=== PATIENT | male | born 1965 | race Caucasian/White ===

== ENCOUNTER → 2019-02-13 09:06 | Outpatient (CLI) | payer MEDICAID, SELFPAY ==
[2019-02-13 12:20] LABS: Absolute Lymphocyte Count 2.13 X10^3/uL (0.83-4.51); Absolute Neutrophil Count 4.3 X10^3/uL (2.0-7.7); Basophil# 0.03 X10^3/uL; Basophil% 0.4 % (0-1); Eosinophil# 0.24 X10^3/uL; Eosinophils% 3.4 % (0-5); Hematocrit 40.9 % (40-54); Hemoglobin 14.6 g/dL (13.0-16.5); Lymphocyte # 2.13 X10^3/ul (4.0); Lymphocyte % 30.1 % (19-41); Mean Corp Hgb Conc 35.7 g/dL (32-36); Mean Corpuscular Volume 86.8 fL (80-94); Mean Platelet Vol. 11.2 fl (6.2-12.0); Monocyte% 5.6 % (0-10); NRBC Flagged by Analyzer 0 % (0-5); Neutrophil # 4.26 X10^3/uL (2.7-7.7); Neutrophil % 60.2 % (47-70); Platelet Count 229 K/mm3 (150-450); RBC Distribution Width SD 40.3 fl (35.1-43.9); Red Blood Count 4.71 M/mm3 (4.6-6.2); White Blood Count 7.1 K/mm3 (4.4-11.0)
[2019-02-13 12:56] LABS: Phenytoin (Dilantin) Level 8.7 mL (10.0-20.0)
[2019-02-13 13:15] LABS: ALB/GLOB Ratio 0.9 RATIO (0.9-2.4); AST(SGOT) 24 U/L (15-37); Alanine Aminotransfer ALT/SGPT 37 U/L (16-61); Albumin, Serum 3.5 g/dL (3.2-5.0); Alkaline Phosphatase 107 U/L (45-117); Anion Gap 9 (5-15); BUN 10 mg/dL (7-18); Calcium,Total 8.1 mg/dL (8.5-10.1); Chloride 103 mmol/L (98-107); Cholesterol 239 mg/dL (200); Creatinine, Serum 0.91 mg/dL (0.70-1.30); EST Glomerular Filtration Rate 93 mL/min (>60); Est Glom Filt Rate - Afr Amer 113 mL/min (>60); Globulin 3.8 g/dL (2.2-4.2); Glucose 201 mg/dL (74-106); High Density Lipoprotein 27 mg/dL; Potassium 4.3 mmol/L (3.5-5.1); Protein, Total 7.3 g/dL (6.4-8.2); Sodium Level 138 mmol/L (136-145); Thyroid Stim Hormone (TSH) 1.87 uIU/mL (0.358-3.74); Triglycerides 1365 mg/dL
== END ==
PROVIDERS: Visit Provider Internal Medicine
DX: E11.9 Type 2 diabetes mellitus without complications (principal); E78.5 Hyperlipidemia, unspecified; G40.909 Epilepsy, unspecified, not intractable, without status epilepticus
CPT/HCPCS: 36415; 80053; 80061; 80185; 84443; 85025

== ENCOUNTER → 2019-08-14 14:12 | Outpatient (CLI) | payer MEDICAID, SELFPAY ==
[2019-08-14 14:08] VITALS: BMI 49.4
[2019-08-14 16:00] LABS: Anion Gap 6 (5-15); BUN 12 mg/dL (7-18); Calcium,Total 8.8 mg/dL (8.5-10.1); Chloride 108 mmol/L (98-107); Creatinine, Serum 0.92 mg/dL (0.70-1.30); EST Glomerular Filtration Rate 91 mL/min (>60); Est Glom Filt Rate - Afr Amer 110 mL/min (>60); Glucose 110 mg/dL (74-106); Sodium Level 140 mmol/L (136-145)
[2019-08-14 22:16] LABS: Microalbumin:Creatinine Ratio 190.7 mg/g CRE (<30 mg/g CRE)
== END ==
LOC: LAB 14:14
PROVIDERS: PCP Internal Medicine; Referring Provider Internal Medicine; Visit Provider Internal Medicine
DX: E11.9 Type 2 diabetes mellitus without complications (principal); I10 Essential (primary) hypertension
CPT/HCPCS: 36415; 80048; 82043; 82570

== ENCOUNTER → 2019-10-16 14:17 | Outpatient (CLI) | payer MEDICAID, SELFPAY ==
[2019-10-16 13:57] VITALS: BMI 49.4
[2019-10-16 15:52] LABS: Hemoglobin A1c 6.2 % (4.2-6.3)
[2019-10-16 15:54] LABS: Cholesterol 221 mg/dL (200); High Density Lipoprotein 34 mg/dL; Triglycerides 586 mg/dL
== END ==
PROVIDERS: PCP Internal Medicine; Visit Provider Internal Medicine
DX: E11.9 Type 2 diabetes mellitus without complications (principal); E78.5 Hyperlipidemia, unspecified; G40.909 Epilepsy, unspecified, not intractable, without status epilepticus
CPT/HCPCS: 36415; 80061; 80185; 83036

== ENCOUNTER → 2020-01-15 14:01 | Outpatient (CLI) | payer MEDICAID, SELFPAY ==
[2020-01-15 13:33] VITALS: BMI 49.4
[2020-01-15 15:41] LABS: Absolute Lymphocyte Count 2.38 X10^3/uL (0.83-4.51); Absolute Neutrophil Count 5.1 X10^3/uL (2.0-7.7); Basophil# 0.05 X10^3/uL; Basophil% 0.6 % (0-1); Eosinophil# 0.26 X10^3/uL; Eosinophils% 3.2 % (0-5); Hematocrit 40.5 % (40-54); Hemoglobin 14.3 g/dL (13.0-16.5); Lymphocyte # 2.38 X10^3/ul (4.0); Lymphocyte % 28.8 % (19-41); Mean Corp Hgb Conc 35.3 g/dL (32-36); Mean Corpuscular Hgb 31.3 pg (27.0-32.0); Mean Corpuscular Volume 88.6 fL (80-94); Mean Platelet Vol. 9.7 fl (6.2-12.0); Monocyte# 0.41 X10^3/uL; NRBC Flagged by Analyzer 0 % (0-5); Neutrophil # 5.12 X10^3/uL (2.7-7.7); Platelet Count 267 K/mm3 (150-450); RBC Distribution Width SD 44.5 fl (35.1-43.9); Red Blood Count 4.57 M/mm3 (4.6-6.2); White Blood Count 8.3 K/mm3 (4.4-11.0)
[2020-01-15 16:28] LABS: T4 Free Direct 0.72 ng/dL (0.76-1.46); Thyroid Stim Hormone (TSH) 2.41 uIU/mL (0.358-3.74)
== END ==
PROVIDERS: PCP Internal Medicine; Referring Provider Internal Medicine; Visit Provider Internal Medicine
DX: E11.9 Type 2 diabetes mellitus without complications (principal); Z13.29 Encounter for screening for other suspected endocrine disorder
CPT/HCPCS: 36415; 84439; 84443; 85025

== ENCOUNTER 2020-02-10 13:00 | Outpatient (RCR) | payer MEDICAID, SELFPAY ==
[2020-01-15 13:33] VITALS: BMI 49.4
--- NOTE | 2020-02-04 16:29 | HP.PTEVAL ---
Patient's Visit Information EVANGELISTA BORREGO Jr. is a 54 year old M referred to Physical Therapy by Dr. Stephen Leonard MD with a diagnosis of BPPV. Date of Evaluation: 02/04/20 Physical Therapist: Trino Serrano, DPT, OCS, CSCS - Visit Plan Frequency: 1x/Week Duration: 2-4 Weeks Plan: weekly as needed for positional treatment or oculomotor if needed. - Subjective Started getting dizzy maybe after working hard in the heat. Gets dizzy getting up quick or lying down. Lasts for a number of seconds upon turning head. Feels pretty normal in between these sessions. Balance feels ok except when dizzy. On meclizine for dizzyness. It helps a little. Turning in bed causes this. Not employed. Had seizure in May and has epilepsy and does not work. Sleep is OK. Activities at home are pretty normal he just has to slow down to avoid falling down. This happens most days. - Objective Walks well with good balance. Cervical AROM WFL and without pain or problems. FW head posture. - L hallpike. + R hallpike for asymmetrical dizzyness and possibly slight up torsional nystagmus quickly. Treated with R Akanksha then - R HD. - Balance Scores Functional Gait Assessment Score: 28 % Disability: 6.6700 - Goals Goal 1:: Abolish dizzyness in bed and bending Goal Time Frame: 2-4 Weeks Goal 2:: Pt feel 100% back to normal. Goal Time Frame: 2-4 Weeks - Rehabilitation Potential Physical Therapy Diagnosis: R PC BPPV Rehabilitation Potential: Good - Anticipated Interventions Patient/Client Instruction: Educate patient on: Condition, Plan of Care For the Purpose of:: To increase tolerance to activity/condition/position Comment: positional and vestibular ex For the Purpose of:: To increase tolerance to activity/condition/position Thank you for the opportunity to evaluate your patient. For Medicare and Medicare HMO plans, please review the plan of care and approve it. It will need to be FAXED BACK to us at [phone] for Medicare purposes. For Medicare only, by signing this I certify the plan of care. Please let me know if there are questions or concerns regarding this plan of care. Physician Signature: Date:
--- NOTE | 2020-02-10 13:16 | HP.PTDCSUM ---
It has been my pleasure to treat EVANGELISTA BORREGO Jr. referred by Dr. Stephen Leonard MD, with the diagnosis of BPPV for a total of 2 visit(s). Discharge Date: 02/10/20 Please see the following information for a summary of their discharge status. Subjective: 80% improved, no dizzy spells. Fell two times while mowing stepping in holes. Roling in bed without dizzyness adn sleeping OK. Will see doc in a week or two. No dizzy with bending. Objective/Function: - B halpike franci adn - roll test. Walkign well adn transitioning with ease. No dizzyness with bending. Goal 1:: Abolish dizzyness in bed and bending Goal Progress: Goal Met Goal 2:: Pt feel 100% back to normal. Goal Progress: Progressing Plan: d/c If there are questions or concerns regarding this patient's physical therapy, please feel free to call me at [phone]. Thank you for the referral of this patient. Sincerely, Trino Serrano, DPT, OCS, CSCS
== END 2020-02-10 19:00 | disposition home or self-care (01) ==
LOC: PT 13:00
PROVIDERS: PCP Internal Medicine; Referring Provider Internal Medicine; Visit Provider Internal Medicine
DX: R42 Dizziness and giddiness (principal)
CPT/HCPCS: 97161; 97164

== ENCOUNTER → 2020-04-06 | Outpatient (CLI) | payer MEDICAID, SELFPAY ==
[2020-04-02 11:05] VITALS: BMI 49.4
== END | disposition home or self-care (01) ==
LOC: LABSPEC 17:49
PROVIDERS: PCP Internal Medicine; Referring Provider Internal Medicine; Visit Provider Internal Medicine
DX: Z20.828 Contact with and (suspected) exposure to other viral communicable diseases (principal); R05 Cough
CPT/HCPCS: 87635; C9803; U0003

== ENCOUNTER → 2020-07-13 10:14 | Outpatient (CLI) | payer MEDICAID, SELFPAY ==
[2020-04-15 16:08] VITALS: BMI 49.4
[2020-07-13 12:32] LABS: Basophil# 0.04 X10^3/uL; Basophil% 0.7 % (0-1); Eosinophil# 0.17 X10^3/uL; Eosinophils% 2.8 % (0-5); Hematocrit 41.5 % (40-54); Hemoglobin 14.1 g/dL (13.0-16.5); Lymphocyte % 42.4 % (19-41); Mean Corpuscular Hgb 30.1 pg (27.0-32.0); Mean Corpuscular Volume 88.7 fL (80-94); Mean Platelet Vol. 10.2 fl (6.2-12.0); Monocyte# 0.36 X10^3/uL; Monocyte% 5.9 % (0-10); NRBC Flagged by Analyzer 0 % (0-5); Neutrophil # 2.95 X10^3/uL (2.7-7.7); Platelet Count 256 K/mm3 (150-450); RBC Distribution Width CV 12.9 % (11.6-14.6); RBC Distribution Width SD 41.9 fl (35.1-43.9); Red Blood Count 4.68 M/mm3 (4.6-6.2); White Blood Count 6.1 K/mm3 (4.4-11.0)
[2020-07-13 12:52] LABS: AST(SGOT) 14 U/L (15-37); Alanine Aminotransfer ALT/SGPT 27 U/L (16-61); Albumin, Serum 3.7 g/dL (3.2-5.0); Alkaline Phosphatase 100 U/L (45-117); Anion Gap 6 (5-15); BUN 15 mg/dL (7-18); BUN/Creat Ratio 16.9 RATIO (10-20); Calcium,Total 8.7 mg/dL (8.5-10.1); Chloride 104 mmol/L (98-107); Creatinine, Serum 0.89 mg/dL (0.70-1.30); EST Glomerular Filtration Rate 95 mL/min (>60); Est Glom Filt Rate - Afr Amer 115 mL/min (>60); Globulin 3.8 g/dL (2.2-4.2); Glucose 157 mg/dL (74-106); Potassium 4.1 mmol/L (3.5-5.1); Protein, Total 7.5 g/dL (6.4-8.2); Sodium Level 138 mmol/L (136-145)
== END ==
PROVIDERS: PCP Internal Medicine; Visit Provider Internal Medicine
DX: E11.9 Type 2 diabetes mellitus without complications (principal); I10 Essential (primary) hypertension
CPT/HCPCS: 36415; 80053; 85025

== ENCOUNTER → 2020-10-12 09:49 | Outpatient (CLI) | payer BC, MEDICAID, SELFPAY ==
[2020-10-12 09:10] VITALS: BMI 46.0
[2020-10-12 13:37] LABS: Anion Gap 4 (5-15); BUN 16 mg/dL (7-18); BUN/Creat Ratio 16.4 RATIO (10-20); Chloride 105 mmol/L (98-107); Cholesterol 224 mg/dL (200); Creatinine, Serum 0.97 mg/dL (0.70-1.30); EST Glomerular Filtration Rate 85 mL/min (>60); Est Glom Filt Rate - Afr Amer 103 mL/min (>60); Glucose 119 mg/dL (74-106); High Density Lipoprotein 36 mg/dL; Potassium 4.3 mmol/L (3.5-5.1); Sodium Level 139 mmol/L (136-145); Triglycerides 420 mg/dL
== END ==
PROVIDERS: PCP Internal Medicine; Referring Provider Internal Medicine; Visit Provider Internal Medicine
DX: E11.9 Type 2 diabetes mellitus without complications (principal); I10 Essential (primary) hypertension
CPT/HCPCS: 36415; 80048; 80061

== ENCOUNTER → 2021-01-11 13:31 | Outpatient (CLI) | payer BC, MEDICAID, SELFPAY ==
[2021-01-11 13:10] VITALS: BMI 46.0
[2021-01-11 15:32] LABS: Microalbumin:Creatinine Ratio 38.5 mg/g CRE (<30 mg/g CRE)
== END ==
PROVIDERS: PCP Internal Medicine; Visit Provider Internal Medicine
DX: E11.9 Type 2 diabetes mellitus without complications (principal)
CPT/HCPCS: 82043; 82570

== ENCOUNTER → 2021-04-06 09:15 | Outpatient (CLI) | payer BC, MEDICAID, SELFPAY ==
[2021-04-06 12:12] LABS: Absolute Lymphocyte Count 2.44 X10^3/uL (0.83-4.51); Absolute Neutrophil Count 3.9 X10^3/uL (2.0-7.7); Basophil# 0.03 X10^3/uL; Basophil% 0.4 % (0-1); Eosinophils% 2.8 % (0-5); Hematocrit 42.9 % (40-54); Hemoglobin 14.5 g/dL (13.0-16.5); Lymphocyte # 2.44 X10^3/ul (0.83-4.51); Lymphocyte % 34.7 % (19-41); Mean Corp Hgb Conc 33.8 g/dL (32-36); Mean Corpuscular Hgb 31.3 pg (27.0-32.0); Mean Corpuscular Volume 92.5 fL (80-94); Mean Platelet Vol. 9.6 fl (6.2-12.0); Monocyte# 0.47 X10^3/uL; Monocyte% 6.7 % (0-10); NRBC Flagged by Analyzer 0 % (0-5); Neutrophil # 3.87 X10^3/uL (2.7-7.7); Platelet Count 257 K/mm3 (150-450); RBC Distribution Width CV 13.6 % (11.6-14.6); RBC Distribution Width SD 46.2 fl (35.1-43.9); Red Blood Count 4.64 M/mm3 (4.6-6.2)
[2021-04-06 12:41] LABS: ALB/GLOB Ratio 0.9 RATIO (0.9-2.4); AST(SGOT) 14 U/L (15-37); Alanine Aminotransfer ALT/SGPT 25 U/L (16-61); Albumin, Serum 3.6 g/dL (3.2-5.0); Alkaline Phosphatase 90 U/L (45-117); Anion Gap 7 (5-15); BUN 19 mg/dL (7-18); BUN/Creat Ratio 22.3 RATIO (10-20); Chloride 106 mmol/L (98-107); Cholesterol 233 mg/dL (200); Creatinine, Serum 0.85 mg/dL (0.70-1.30); EST Glomerular Filtration Rate 99 mL/min (>60); Est Glom Filt Rate - Afr Amer 120 mL/min (>60); Glucose 134 mg/dL (74-106); High Density Lipoprotein 37 mg/dL; Potassium 4.6 mmol/L (3.5-5.1); Protein, Total 7.6 g/dL (6.4-8.2); Sodium Level 139 mmol/L (136-145); Triglycerides 446 mg/dL
[2021-04-06 12:51] LABS: Microalbumin,Random Urine 98.8 mg/L (NO RANGE EST.); Microalbumin:Creatinine Ratio 82.3 mg/g CRE (<30 mg/g CRE)
== END ==
PROVIDERS: PCP Internal Medicine; Referring Provider Internal Medicine; Visit Provider Internal Medicine
DX: E11.9 Type 2 diabetes mellitus without complications (principal); I10 Essential (primary) hypertension
CPT/HCPCS: 36415; 80053; 80061; 82043; 82570; 85025

== ENCOUNTER 2021-09-09 15:17 | Outpatient (CLI) | payer MEDICAID, SELFPAY ==
--- NOTE | 2021-09-09 15:37 | RAD_ITS ---
STUDY: X-RAY - LUMBAR SPINE REASON FOR EXAM: Male, 56 years old. Numbness in Rt leg x 3 weeks. Low back pain. radiculopathy TECHNIQUE: XR Spine Lumbar 2 or 3 Views COMPARISON: None FINDINGS: Normal lumbar lordosis. There is no substantial scoliosis. There is a normal alignment of the vertebrae. Normal vertebral bodies and endplates. Normal disc space heights. There are atherosclerotic vascular calcifications. The soft tissue structures are unremarkable. RAD/Lumbar Spine 2 or 3 Views IMPRESSION: There are no acute findings. Electronically Signed: Loki Jain MD at 16:12 EST ,
--- NOTE | 2021-09-09 15:37 | RAD_ITS ---
STUDY: X-RAY - PELVIS AND RIGHT HIP REASON FOR EXAM: Male, 56 years old. Right Hip Pain TECHNIQUE: XR Hip Unilateral with Pelvis when performed; 2-3 Views COMPARISON: None. FINDINGS: There is a non-specific bowel gas pattern. Normal visualized soft tissue structures. Normal bilateral iliac wings, sacroiliac joints and visualized sacrum. Normal bilateral superior and inferior pubic rami. Normal pubic symphysis. Normal bilateral ischial tuberosities. Right and left hips: Normal visualized femoral head. There is osteoarthritic spur formation of the acetabular rim. There is mild articular joint space narrowing of the hip. RAD/HIP, UNI W/ Pelvis 2-3 Views IMPRESSION: Degenerative findings of the hips. Electronically Signed: Loki Jain MD at 16:13 EST ,
== END 2021-09-09 23:59 | disposition home or self-care (01) ==
LOC: RAD 15:20
PROVIDERS: PCP Internal Medicine; Referring Provider Internal Medicine; Visit Provider Internal Medicine
DX: M25.551 Pain in right hip (principal); M54.16 Radiculopathy, lumbar region
CPT/HCPCS: 72100; 73502

== ENCOUNTER 2021-10-11 16:57 | Outpatient (CLI) | payer BC, MEDICAID, SELFPAY ==
--- NOTE | 2021-10-11 17:10 | RAD_ITS ---
STUDY: X-RAY - CERVICAL SPINE REASON FOR EXAM: Male, 56 years old. neck pain TECHNIQUE: view(s) of the cervical spine were obtained. COMPARISON: None FINDINGS: Normal anterior atlantoaxial articulation. Normal odontoid process. Normal cervical lordosis. Normal vertebral bodies and endplates. Normal disc space heights. Normal visualized intervertebral neuroforamina. The soft tissue structures are unremarkable. RAD/Cerv Spine 4 or 5 Views IMPRESSION: Normal x-ray examination of the visualized cervical spine. Electronically Signed: Júnior Dupree MD at 6:42 EDT ,
== END 2021-10-11 23:59 | disposition home or self-care (01) ==
PROVIDERS: PCP Internal Medicine; Referring Provider Family Medicine; Visit Provider Family Medicine
DX: M54.2 Cervicalgia (principal)
CPT/HCPCS: 72050

== ENCOUNTER → 2024-10-28 | Outpatient (REF) | payer MEDICAID, SELFPAY ==
[2024-10-28 10:06] LABS: Hematocrit 39.3 % (40-54); Hemoglobin 13.8 g/dL (13.0-16.5); Mean Corp Hgb Conc 35.1 g/dL (32-36); Mean Corpuscular Hgb 30.8 pg (27.0-32.0); Mean Corpuscular Volume 87.7 fL (80-94); Mean Platelet Vol. 10.2 fl (6.2-12.0); Platelet Count 223 K/mm3 (150-450); RBC Distribution Width CV 13.6 % (11.6-14.6); RBC Distribution Width SD 43.3 fl (35.1-43.9); Red Blood Count 4.48 M/mm3 (4.6-6.2); White Blood Count 5.8 K/mm3 (4.4-11.0)
[2024-10-28 10:10] LABS: ALB/GLOB Ratio 1.3 RATIO (0.9-2.4); AST(SGOT) 25 U/L (<=37); Alanine Aminotransfer ALT/SGPT 28 U/L (<=46); Albumin, Serum 3.6 g/dL (3.5-5.0); Alkaline Phosphatase 86 U/L (40-129); Anion Gap 11 (5-15); BUN 14 mg/dL (4-19); BUN/Creat Ratio 14.6 RATIO (10-20); Calcium,Total 8.8 mg/dL (7.6-11.0); Carbon Dioxide 22.9 mmol/L (21.0-32.0); Chloride 109 mmol/L (98-108); Creatinine, Serum 0.96 mg/dL (0.70-1.20); EST Glomerular Filtration Rate 91 (>60); Globulin 2.8 g/dL (2.2-4.2); Glucose 102 mg/dL (70-99); Potassium 3.9 mmol/L (3.3-5.1); Protein, Total 6.5 g/dL (5.9-8.4); Sodium Level 142 mmol/L (133-145); Total Bilirubin 0.35 mg/dL (0.00-1.30)
== END | disposition home or self-care (01) ==
LOC: OLS.SANC 05:00
PROVIDERS: PCP Family Medicine
DX: E11.9 Type 2 diabetes mellitus without complications (principal); I10 Essential (primary) hypertension; G40.509 Epileptic seizures related to external causes, not intractable, without status epilepticus
CPT/HCPCS: 36415; 80053; 85027

== ENCOUNTER → 2025-01-31 | Outpatient (REF) | payer MEDICAID, SELFPAY ==
--- OUTSIDE RECORDS SUMMARY | 2025-01-31 04:45 | XMS RPT_ITS | CCD ---
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 unspecified] 05-08-2023 Episodic Other lower respiratory disease (1 source) Cough; Translations: [Acute cough] Episodic Other lower respiratory disease (1 source) Cough; Translations: [Acute cough] 02-14-2022 Episodic Other nervous system disorders (1 source) Carpal tunnel syndrome; Translations: [Carpal tunnel syndrome, unspecified upper limb] Chronic Other nervous system disorders (3 sources) Neuropathy; Translations: [Polyneuropathy, unspecified] 03-29-2024 Chronic Other nervous system disorders (8 sources) Aphasia; Translations: [Aphasia] Onset: 09-25-2024 09-26-2024 Chronic Other nervous system disorders (2 sources) Polyneuropathy, unspecified; Translations: [Polyneuropathy, unspecified] Onset: 03-29-2024 Chronic Other nervous system disorders (1 source) Anesthesia of skin; Translations: [Anesthesia of skin] Onset: 09-22-2021 Episodic Other nervous system disorders (9 sources) Dysarthria; Translations: [Dysarthria and anarthria] Onset: 09-25-2024 09-26-2024 Episodic Other non-traumatic joint disorders (1 source) Hip pain; Translations: [Pain in right hip] Episodic Other non-traumatic joint disorders (2 sources) Pain in right hip; Translations: [Pain in joint, pelvic region and thigh] Episodic Other nutritional; endocrine; and metabolic disorders (8 sources) Body mass index 40+ - severely obese; Translations: [Morbid (severe) obesity due to excess calories] Onset: 09-23-2024 09-26-2024 Chronic Other nutritional; endocrine; and metabolic disorders (2 sources) Morbid (severe) obesity due to excess calories; Translations: [Morbid obesity] Onset: 09-26-2024 Chronic Residual codes; unclassified (11 sources) Sleep apnea; Translations: [Sleep apnea, unspecified] Onset: 07-26-2012 07-19-2021 Chronic Residual codes; unclassified (5 sources) Breathing-related sleep disorder; Translations: [Sleep apnea, unspecified] Onset: 10-27-2024 10-27-2024 Chronic Residual codes; unclassified (1 source) Obstructive sleep apnea (adult) (pediatric); Translations: [CHRYSTAL (obstructive sleep apnea)] Onset: 09-22-2024 Chronic Suicide and intentional self-inflicted injury (1 source) Suicide attempt ; Translations: [Suicide attempt, initial encounter] Episodic Past or Other Problems Problem Classification Problem Date Documented Da te Episodic/Chronic Administrative/social admission (7 sources) Impaired mobility; Translations: [Other reduced mobility] Onset: 09-24-2024 09-26-2024 Episodic Anxiety disorders (10 sources) Anger reaction; Translations: [Irritability and anger] Onset: 06-01-2009 06-01-2009 Episodic Epilepsy; convulsions (20 sources) Seizure disorder; Translations: [Epilepsy] Onset: 06-13-2019 Resolved: 09-26-2024 06-13-2019 Chronic Epilepsy; convulsions (20 sources) Seizure; Translations: [Unspecified convulsions] Onset: 03-31-2009 06-12-2019 Episodic Immunizations and screening for infectious disease (4 sources) Viral screening status; Translations: [Encounter for screening for other viral diseases] Onset: 03-29-2024 03-29-2024 Episodic Other aftercare (6 sources) Insulin dose changed; Translations: [[facility] (current) use of insulin] Onset: 09-28-2024 09-28-2024 Episodic Other ear and sense organ disorders (3 sources) Impacted cerumen of bilateral ears; Translations: [Impacted cerumen, bilateral] Onset: 03-29-2024 03-29-2024 Episodic Other ear and sense organ disorders (1 source) Impacted cerumen, bilateral; Translations: [Impacted cerumen, bilateral] Onset: 03-29-2024 Episodic Other gastrointestinal disorders (7 sources) Dysphagia; Translations: [Dysphagia, unspecified] Onset: 09-23-2024 09-26-2024 Episodic Other injuries and conditions due to external causes (7 sources) At risk for falls ; Translations: [History of falling] Onset: 09-24-2024 09-26-2024 Episodic Other non-traumatic joint disorders (10 sources) Shoulder joint pain; Translations: [Pain in unspecified shoulder] Onset: 02-03-2012 02-03-2012 Episodic Other screening for suspected conditions (not mental disorders or infectious disease) (4 sources) Patient encounter status; Translations: [Encounter for screening for malignant neoplasm of colon] Onset: 03-29-2024 03-29-2024 Episodic Residual codes; unclassified (7 sources) Finding of activity of daily living; Translations: [Other general symptoms and signs] Onset: 09-24-2024 09-26-2024 Episodic Spondylosis; intervertebral disc disorders; other back problems (14 sources) Lumbar radiculopathy; Translations: [Radiculopathy, lumbar region] Onset: 02-03-2012 Episodic Sprains and strains (14 sources) Sprain of ankle; Translations: [Sprain of unspecified ligament of unspecified ankle, initial encounter] Onset: 04-17-2009 04-17-2009 Episodic Results Test Name Value Interpretation Reference Range Facility CT CERVICAL SPINE WO IV CONT [facility] 01-17-2025 CT CERVICAL SPINE WO IV CONTRAST [facility] 1965 [id number] Exam Date/Time: 01/17/2025 15:49 Procedure: CT CERVICAL SPINE WO IV CONTRAST Ordering Provider: KENNY TYLER Reason For Exam: Neck trauma, intoxicated or obtunded (Age >= 16y) CLINICAL INFORMATION: Head and neck pain after trauma. Fall. HEAD CT: 3 mm axial cuts through the brain are provided without IV contrast. Dose reduction was employed with automated exposure control. There are no comparison studies. FINDINGS: The ventricles are within normal limits in respect to their size and configuration. There is no evidence of mass or mass-effect. There are no CT findings to suggest an acute infarct. There are no abnormal intra or extra-axial fluid collections. No hemorrhage is appreciated. Bone windows demonstrate no evidence of fracture and the paranasal sinuses are clear. IMPRESSION: 1. No acute findings. C-SPINE CT: 1 mm axial cuts through the cervical spine are provided without IV contrast. Coronal and sagittal reconstructions are reviewed. Dose reduction was employed with automated exposure control. There are no comparison studies. FINDINGS: The alignment of the cervical spine is within normal limits. Vertebral body heights and disc spaces are well maintained. There is no evidence of fracture or traumatic subluxation. IMPRESSION: 1. No evidence of fracture or traumatic subluxation. Report Dictated on Electronically Signed By: Tobi Boudreaux MD Electronically Signed Date/Time: 01/17/2025 4:46 PM EDT Complaint of fall this morning at [facility]. Patient fell in the bathroom hitting head. Patient takes an 81mg aspirin daily. No LOC. Patient has a history of CVA and is alert and oriented to person which is baseline per EMS. Patient denies any injury or pain at this time. Normal [facility] CT Cervical spine WO contras ton 01-17-2025 Patient Name: EVANGELISTA BORREGO : 1965 Exam Date/Time: 01/17/2025 15:49 Procedure: CT CERVICAL SPINE WO IV CONTRAST Ordering Provider: KENNY TYLER Reason For Exam: Neck trauma, intoxicated or obtunded (Age >= 16y) CLINICAL INFORMATION: Head and neck pain after trauma. Fall. HEAD CT: 3 mm axial cuts through the brain are provided without IV contrast. Dose reduction was employed with automated exposure control. There are no comparison studies. FINDINGS: The ventricles are within normal limits in respect to their size and configuration. There is no evidence of mass or mass-effect. There are no CT findings to suggest an acute infarct. There are no abnormal intra or extra-axial fluid collections. No hemorrhage is appreciated. Bone windows demonstrate no evidence of fracture and the paranasal sinuses are clear. [facility] Tobi Boudreaux MD - 01/17/2025 Patient Name: EVANGELISTA BORREGO : 1965 Exam Date/Time: 01/17/2025 15:49 Procedure: CT CERVICAL SPINE WO IV CONTRAST Ordering Provider: KENNY TYLER Reason For Exam: Neck trauma, intoxicated or obtunded (Age >= 16y) CLINICAL INFORMATION: Head and neck pain after trauma. Fall. HEAD CT: 3 mm axial cuts through the brain are provided without IV contrast. Dose reduction was employed with automated exposure control. There are no comparison studies. FINDINGS: The ventricles are within normal limits in respect to their size and configuration. There is no evidence of mass or mass-effect. There are no CT findings to suggest an acute infarct. There are no abnormal intra or extra-axial fluid collections. No hemorrhage is appreciated. Bone windows demonstrate no evidence of fracture and the paranasal sinuses are clear. IMPRESSION: 1. No acute findings. C-SPINE CT: 1 mm axial cuts through the cervical spine are provided without IV contrast. Coronal and sagittal reconstructions are reviewed. Dose reduction was employed with automated exposure control. There are no comparison studies. FINDINGS: The alignment of the cervical spine is within normal limits. Vertebral body heights and disc spaces are well maintained. There is no evidence of fracture or traumatic subluxation. IMPRESSION: 1. No evidence of fracture or traumatic subluxation. Report Dictated on Electronically Signed By: Tobi Boudreaux MD Electronically Signed Date/Time: 01/17/2025 4:46 PM EDT [facility] Radiology Study observation (narrative) [facility] CT HEAD WO IV CONTRASTon CT HEAD WO IV CONTRAST Patient Name: EVANGELISTA BORREGO : 1965 Exam Date/Time: 01/17/2025 15:49 Procedure: CT HEAD WO IV CONTRAST Ordering Provider: KENNY TYLER Reason For Exam: Head trauma, abnormal mental status (Age 18-64y) CLINICAL INFORMATION: Head and neck pain after trauma. Fall. HEAD CT: 3 mm axial cuts through the brain are provided without IV contrast. Dose reduction was employed with automated exposure control. There are no comparison studies. FINDINGS: The ventricles are within normal limits in respect to their size and configuration. There is no evidence of mass or mass-effect. There are no CT findings to suggest an acute infarct. There are no abnormal intra or extra-axial fluid collections. No hemorrhage is appreciated. Bone windows demonstrate no evidence of fracture and the paranasal sinuses are clear. IMPRESSION: 1. No acute findings. C-SPINE CT: 1 mm axial cuts through the cervical spine are provided without IV contrast. Coronal and sagittal reconstructions are reviewed. Dose reduction was employed with automated exposure control. There are no comparison studies. FINDINGS: The alignment of the cervical spine is within normal limits. Vertebral body heights and disc spaces are well maintained. There is no evidence of fracture or traumatic subluxation. IMPRESSION: 1. No evidence of fracture or traumatic subluxation. Report Dictated on Electronically Signed By: Tobi Boudreaux MD Electronically Signed Date/Time: 01/17/2025 4:46 PM EDT Complaint of fall this morning at [facility]. Patient fell in the bathroom hitting head. Patient takes an 81mg aspirin daily. No LOC. Patient has a history of CVA and is alert and oriented to person which is baseline per EMS. Patient denies any injury or pain at this time. Normal [facility] CT Head WO contraston 2024 Patient Name: EVANGELISTA BORREGO : 1965 Exam Date/Time: 01/17/2025 15:49 Procedure: CT HEAD WO IV CONTRAST Ordering Provider: KENNY TYLER Reason For Exam: Head trauma, abnormal mental status (Age 18-64y) CLINICAL INFORMATION: Head and neck pain after trauma. Fall. HEAD CT: 3 mm axial cuts through the brain are provided without IV contrast. Dose reduction was employed with automated exposure control. There are no comparison studies. FINDINGS: The ventricles are within normal limits in respect to their size and configuration. There is no evidence of mass or mass-effect. There are no CT findings to suggest an acute infarct. There are no abnormal intra or extra-axial fluid collections. No hemorrhage is appreciated. Bone windows demonstrate no evidence of fracture and the paranasal sinuses are clear. [facility] Tobi Boudreaux MD - 01/17/2025 Patient Name: EVANGELISTA BORREGO : 1965 Exam Date/Time: 01/17/2025 15:49 Procedure: CT HEAD WO IV CONTRAST Ordering Provider: KENNY TYLER Reason For Exam: Head trauma, abnormal mental status (Age 18-64y) CLINICAL INFORMATION: Head and neck pain after trauma. Fall. HEAD CT: 3 mm axial cuts through the brain are provided without IV contrast. Dose reduction was employed with automated exposure control. There are no comparison studies. FINDINGS: The ventricles are within normal limits in respect to their size and configuration. There is no evidence of mass or mass-effect. There are no CT findings to suggest an acute infarct. There are no abnormal intra or extra-axial fluid collections. No hemorrhage is appreciated. Bone windows demonstrate no evidence of fracture and the paranasal sinuses are clear. IMPRESSION: 1. No acute findings. C-SPINE CT: 1 mm axial cuts through the cervical spine are provided without IV contrast. Coronal and sagittal reconstructions are reviewed. Dose reduction was employed with automated exposure control. There are no comparison studies. FINDINGS: The alignment of the cervical spine is within normal limits. Vertebral body heights and disc spaces are well maintained. There is no evidence of fracture or traumatic subluxation. IMPRESSION: 1. No evidence of fracture or traumatic subluxation. Report Dictated on Electronically Signed By: Tobi Boudreaux MD Electronically Signed Date/Time: 01/17/2025 4:46 PM EDT [facility] Radiology Study observation (narrative) [facility] ED Nursing Noteon 01-17-2025 ED Nursing Note Jorje Charles here to take pt back to SNF. Osmani (medic) gave handoff to EMS crew. All questions answered and paperwork provided. [facility] called and notified of pt returning. Pt clean and dry returning to facility. Normal [facility] ED Nursing Note Updated ETA 2130 Normal [facility] ED Provider Noteon ED Provider Note EMERGENCY DEPARTMENT ENCOUNTER Pt Name: Evangelista Borrego Birthdate 1965 Date of evaluation: 01/17/2025 ED Provider: Devan Kenny DO CHIEF COMPLAINT Chief Complaint Patient presents with Fall Complaint of fall this morning at SNF. Patient fell in the bathroom hitting head. Patient takes an 81mg aspirin daily. No LOC. Patient has a history of CVA and is alert and oriented to person which is baseline per EMS. Patient denies any injury or pain at this time. HISTORY OF PRESENT ILLNESS (Location/Symptom, Timing/Onset, Context/Setting, Quality, Duration, Modifying Factors, Severity) Note limiting factors. I wore appropriate PPE for the entirety of this encounter. HPI Evangelista Borrego is a 59 y.o. male who presents to the emergency department for fall at [facility] facility. History of prior CVA, alert and oriented x 2 at baseline, currently has baseline mental status. Complaining of right hand and wrist pain, states he did hit his head but did not lose consciousness. States he is on blood thinners however I do not see any listed in his med list. It was reported that he takes a daily baby aspirin. Denies any neck pain back pain chest pain shortness of breath abdominal pain or other extremity pain other than the right hand and wrist region. Pain is mild. Fall was apparently witnessed at [facility] facility Nursing Notes were reviewed. REVIEW OF SYSTEMS 14 systems reviewed and otherwise acutely negative except as in the [place]. PAST MEDICAL HISTORY Medical History[1] SURGICAL HISTORY Surgical History[2] CURRENT MEDICATIONS Current Discharge Medication List CONTINUE these medications which have NOT CHANGED Details atorvastatin (Lipitor) 20 MG tablet TAKE 1 TABLET BY MOUTH EVERY DAY Qty: 90 tablet, Refills: 3 gabapentin (Neurontin) 300 MG capsule TAKE 1 CAPSULE BY MOUTH THREE TIMES A DAY Qty: 90 capsule, Refills: 5 Associated Diagnoses: Neuropathy meloxicam (Mobic) 15 MG tablet Take 1 tablet (15 mg) by mouth as needed for mild pain (1-3). Qty: 90 tablet, Refills: 3 metFORMIN XR (Glucophage-XR) 750 MG 24 hr tablet Take 1 tablet (750 mg) by mouth with evening meal. Qty: 90 tablet, Refills: 3 Associated Diagnoses: Type 2 diabetes mellitus without complication, without long-term current use of insulin (HCC) OXcarbazepine (Trileptal) 150 MG tablet TAKE 1 TABLET BY MOUTH 2 TIMES DAILY Qty: 180 tablet, Refills: 1 Comments: DX Code Needed PLEASE REFILL. Associated Diagnoses: Intermittent explosive disorder phenytoin ER (Dilantin) 100 MG capsule Take 2 capsules (200 mg) by mouth every morning AND 2 capsules (200 mg) Daily with lunch AND 1 capsule (100 mg) every evening. Take 2 capsules (200 mg) by mouth every morning AND 2 capsules (200 mg) Daily with lunch AND 1 capsule (100 mg) every evening.. Qty: 150 capsule, Refills: 3 Associated Diagnoses: Seizure (HCC) ALLERGIES Patient has no known allergies. FAMILY HISTORY Family History[3] SOCIAL HISTORY Social History[4] SCREENINGS PHYSICAL EXAM ED Triage Vitals [01/17/25 1525] Temp Heart Rate Resp BP 36.9 ?C (98.5 ?F) 75 18 (!) 193/84 SpO2 Temp Source Heart Rate Source Patient Position 100 % Oral -- Lying BP Location FiO2 (%) Left arm -- CONSTITUTIONAL: Aox2 (baseline), no apparent distress, appears stated age HEAD: normocephalic, atraumatic EYES: PERRL, EOMI ENT: moist mucous membranes, uvula midline NECK: supple, symmetric, nontender throughout BACK: symmetric nontender throughout LUNGS: clear to auscultation bilaterally CARDIOVASCULAR: regular rate and rhythm ABDOMEN: soft, non-tender, non-distended with normal active bowel sounds : deferred NEUROLOGIC: MAEx4, no focal sensory or motor deficits MUSCULOSKELETAL: no clubbing, cyanosis or edema mild tenderness over his right radial styloid and mid hand, loss prevention analyst strength sensation is intact throughout SKIN: no exposed rash DIAGNOSTIC RESULTS Procedures/EKG: EKG was reviewed by myself. Physician EKG interpretation can be found in [facility] RADIOLOGY (Per Emergency Physician): Interpretation per the Radiologist below, if available at the time of this note: CT cervical spine wo IV contrast Final Result 1. No acute findings. C-SPINE CT: 1 mm axial cuts through the cervical spine are provided without IV contrast. Coronal and sagittal reconstructions are reviewed. Dose reduction was employed with automated exposure control. There are no comparison studies. FINDINGS: The alignment of the cervical spine is within normal limits. Vertebral body heights and disc spaces are well maintained. There is no evidence of fracture or traumatic subluxation. IMPRESSION: 1. No evidence of fracture or traumatic subluxation. Report Dictated on Electronically Signed By: Tobi Boudreaux MD Electronically Signed Date/Time: 01/17/2025 4:[address] head wo IV contrast Final Result 1. (more content not included)... Normal [facility] No Panel Informationon 01-17 1. No acute findings. C-SPINE CT: 1 mm axial cuts through the cervical spine are provided without IV contrast. Coronal and sagittal reconstructions are reviewed. Dose reduction was employed with automated exposure control. There are no comparison studies. FINDINGS: The alignment of the cervical spine is within normal limits. Vertebral body heights and disc spaces are well maintained. There is no evidence of fracture or traumatic subluxation. IMPRESSION: 1. No evidence of fracture or traumatic subluxation. Report Dictated on Electronically Signed By: Tobi Boudreaux MD Electronically Signed Date/Time: 01/17/2025 4:46 PM EDT [facility] [employer] [place] 1. No acute findings. Report Dictated on Electronically Signed By: Tobi Boudreaux MD Electronically Signed Date/Time: 01/17/2025 4:11 PM EDT [facility] [employer] No Panel InformationOrdered By: Tobi Boudreaux on 01-17-2025 [facility] [employer] [place] Work Phone: XR Hand - right 3 Viewson Patient Name: EVANGELISTA BORREGO : 1965 Exam Date/Time: 01/17/2025 15:46 Procedure: XR HAND 3+ VIEWS RIGHT Ordering Provider: KENNY TYLER Reason For Exam: fall, eval for fracture CLINICAL INFORMATION: Right hand and wrist pain after trauma. Fall. AP, oblique, and lateral views of the right wrist and AP, oblique, and lateral views of the right hand are provided. There is no comparison study. FINDINGS: The osseous structures are unremarkable. There is no fracture or dislocation. The carpal rows are well-maintained. The bone mineralization is within normal limits. There is no radiopaque foreign body. [facility] Tobi Boudreaux MD - 01/17/2025 Patient Name: EVANGELISTA BORREGO : 1965 Exam Date/Time: 01/17/2025 15:46 Procedure: XR HAND 3+ VIEWS RIGHT Ordering Provider: KENNY TYLER Reason For Exam: fall, eval for fracture CLINICAL INFORMATION: Right hand and wrist pain after trauma. Fall. AP, oblique, and lateral views of the right wrist and AP, oblique, and lateral views of the right hand are provided. There is no comparison study. FINDINGS: The osseous structures are unremarkable. There is no fracture or dislocation. The carpal rows are well-maintained. The bone mineralization is within normal limits. There is no radiopaque foreign body. IMPRESSION: 1. No acute findings. Report Dictated on Electronically Signed By: Tobi Boudreaux MD Electronically Signed Date/Time: 01/17/2025 4:11 PM EDT [email or web address] [place] Radiology Study observation (narrative) [employer] XR Wrist - right 3 Viewson 0 01-17-2025 Patient Name: EVANGELISTA BORREGO : 1965 Exam Date/Time: 01/17/2025 15:46 Procedure: XR WRIST 3+ VIEWS RIGHT Ordering Provider: KENNY TYLER Reason For Exam: fall, radial styloid pain, eval for fracture CLINICAL INFORMATION: Right hand and wrist pain after trauma. Fall. AP, oblique, and lateral views of the right wrist and AP, oblique, and lateral views of the right hand are provided. There is no comparison study. FINDINGS: The osseous structures are unremarkable. There is no fracture or dislocation. The carpal rows are well-maintained. The bone mineralization is within normal limits. There is no radiopaque foreign body. [facility] Tobi Boudreaux MD - 01/17/2025 Patient Name: EVANGELISTA BORREGO : 1965 Exam Date/Time: 01/17/2025 15:46 Procedure: XR WRIST 3+ VIEWS RIGHT Ordering Provider: KENNY TYLER Reason For Exam: fall, radial styloid pain, eval for fracture CLINICAL INFORMATION: Right hand and wrist pain after trauma. Fall. AP, oblique, and lateral views of the right wrist and AP, oblique, and lateral views of the right hand are provided. There is no comparison study. FINDINGS: The osseous structures are unremarkable. There is no fracture or dislocation. The carpal rows are well-maintained. The bone mineralization is within normal limits. There is no radiopaque foreign body. IMPRESSION: 1. No acute findings. Report Dictated on Electronically Signed By: Tobi Boudreaux MD Electronically Signed Date/Time: 01/17/2025 4:11 PM EDT [facility] Radiology Study observation (narrative) [facility] EVANGELISTA BORREGO JR ([id number]) 1965 Date Time Provider Department 12/02/24 DODIE IRVIN [facility] During your visit today, we recorded the following information about you: Jose Guadalupe Holcomb 12/02/2024 2:36 PM Signed CV PHONE Name of caller : Bita Relationship to patient : Nurse If not self Will need patient permission to release results or disclose health information with called documented in . Patient identified by Name and Date of . ( Evangelista Borrego JR, 1965). Yes Number to return call [phone] Reason for Call: Patient Question/Update: Nurse from where patient is staying calling with a few questions about Lovenox medication. Please return call at [phone] Thank you calling [facility]. You will receive a return call within 48 hours ( or 2 business days if close to the weekend). If you feel that this is an urgent issue and needs immediate attention, it is recommended that you contact your primary care provider office or proceed to your nearest [facility] ED for evaluation/treatment . Seble Myers RN 12/02/2024 2:53 PM Signed Call to [facility], wants to know if pt is supposed to still be on Lovenox. States that the SUPPORT TECHNICIAN there is uncomfortable d/c-ing it without CV provider's input. Please call back [phone] Monday. Seble Myers RN December 02, 2024 2:50 PM Seble Myers RN 12/03/2024 8:36 AM Signed Per Dodie Irvin CNP: Lovenox is not something he needs for stroke. If it is prophylactic, that can be determined by the house doc. Call to [facility] [place], Message as above, verbalized understanding, no further questions. Seble Myers RN December 03, 2024 8:36 AM Allergies As of Date: 12/02/2024 (No Known Allergies) Date Reviewed: 11/25/2024 Reviewed by: Mariel Aguila MA - Fully Assessed Reason for Visit: Patient Question [6447] Prescriptions as of 12/03/2024 - donepezil (ARICEPT) 5 mg tablet Take 5 mg by mouth. - naloxone 4 mg/actuation nasal spray (NARCAN) - tamsulosin (FLOMAX) 0.4 mg Take 0.4 mg by mouth. - atorvastatin (LIPITOR) 40 mg tablet 1 tablet by ORAL/FEEDING TUBE route daily at bedtime. - aspirin 81 mg chewable tablet Take 1 tablet by mouth once daily. - enoxaparin (LOVENOX) 40 mg/0.4 mL Inject 0.4 mL subcutaneously every 12 hours. - losartan (COZAAR) 25 mg tablet Take 3 tablets by mouth once daily. - insulin glargine 100 unit/mL (3 mL) Inject 20 Units subcutaneously every morning. - insulin lispro (HUMALOG U-100 INSULIN) 100 unit/mL injection Admin Instructions: ADMINISTER CORRECTIONAL INSULIN REGARDLESS OF MEAL OR NUTRITION INTAKE Scale 2 If Blood Glucose (mg/dL) is <110 Give 0 units, 111-150 Give 0 units, 151-200 Give 2 units, 201-250 Give 4 units, 251-300 Give 6 units, 301-350 Give 8 units, 351-400 Give 10 units, >400 give 10units and notify provider. - zonisamide (ZONEGRAN) 100 mg capsule Take 2 capsules by mouth daily at bedtime. - gabapentin 100 mg tab Take 3 tablets by mouth three times a day for 90 days. - OXcarbazepine (TRILEPTAL) 150 mg tablet Take 150 mg by mouth two times a day. - COMPOUNDED PRESCRIPTION Knee High Compression Stockings 20-30 mm, DX: Edema and venous insufficiency - Blood-Glucose Meter (FREESTYLE LITE METER) monitoring kit Use as instructed. - blood sugar diagnostic (FREESTYLE LITE STRIPS) test strip Use as instructed. Meds Comments as of 08/11/2011: Pt is on an inhaler, unsure of the name, will call office with info. Charla Mcclellan Ma Problem List As Of Date 12/02/2024 Noted Resolved Seizures [R56.9] 03/31/2009 DM (diabetes mellitus) (HCC) [E11.9] 03/31/2009 Anxiety [F41.9] 03/31/2009 Other hyperlipidemia [E78.49] 03/31/2009 Unspecified Site of Ankle Sprain and Strain [S9*04/17/2009 Excessive Anger [R45.4] 06/01/2009 Pain in joint, shoulder region [M25.519] 02/03/2012 Backache, unspecified [M54.9] 02/03/2012 Sleep apnea [G47.30] 07/26/2012 Occlusion and stenosis of left posterior cerebr*09/22/2024 Occlusion of left posterior cerebral artery [I6*09/22/2024 Dysphagia [R13.10] 09/23/2024 Cerebrovascular accident (CVA) due to occlusion*09/23/2024 Essential (primary) hypertension [I10] 09/23/2024 Obesity, Class III, BMI >= 40 [E66.813] 09/23/2024 Alteration in self-care ability [R68.89] 09/24/2024 Impaired mobility [Z74.09] 09/24/2024 At risk for falls [Z91.81] 09/24/2024 Cerebrovascular accident (CVA) (HCC) [I63.9] 09/25/2024 Dysarthria [R47.1] 09/25/2024 Aphasia [R47.01] 09/25/2024 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*09/26/2024 09/26/2024 Insulin dose changed (HCC) [Z79.4] 09/28/2024 Breathing-related sleep disorder [G47.30] 10/27/2024 Encounter Status:Closed by SEBLE MYERS on 12/02/24 [facility] CNOVon 11-25-2024 CNOV Office Visit (ENDOIN) EVANGELISTA BORREGO JR ([id number]) 1965 M Date Time Provider Department 11/25/24 8:00 AM BLAIRE DENNEY During your visit today, we recorded the following information about you: Pulse Blood pressure 55/minute 103/52 Blaire Denney MD 11/25/2024 8:24 AM Signed Endocrinology Initial Diabetes Assessment Evangelista Borrego JR is here for a consultation upon the request of Dr. Dunaway regarding: T2DM Documentation supporting sharing your findings and recommendations via the shared medical record or via the mail. PCP is MD Adriana Atwood MD ([facility]) [address] [place] [id number] Date: November 25, 2024 History of Present Illness Evangelista Borrego JR is a 59 year old male with PMH of T2DM, HTN, HLD, CVA, seizures and CHRYSTAL who presents today for evaluation of T2DM Patient lives in [facility]. Patient is accompanied by transportation refrigeration technician. She has no clinical information about the patient and we have no blood sugars available. Date of Diagnosis: does not remember Context of Diagnosis: does not remember DM complicated by peripheral neuropathy, micro-albuminuria, CVA. Family history of diabetes includes brother. SMBG Type of Monitor: at facility but not available at this time. Severe hypoglycemia over the last year? None Hypoglycemia awareness: n/a Current DM Regimen: Lantus 36 units every day in the morning Humalog ISS #2 before meals Lipids: on atorvastatin 40 mg every day HTN or CKD/albuminuria: on losartan 25 mg three tablets daily Prior Meds: Glimepiride Metformin The ASCVD Risk score (Dony MCCLENDON, et al., 2019) failed to calculate for the following reasons: Risk score cannot be calculated because patient has a medical history suggesting prior/existing ASCVD Physical Activity: on wheelchair Diet: 3 meals per day Previous Diabetes Education: yes. Health Maintenance: Annual PCP Team Chronic Disease Visit Never done Depression Screening Never done HIV Screening Never done Hepatitis B Vaccine(1 of 3 - 19+ 3-dose series) Never done Pneumococcal Vaccine: 50+(2 of 2 - PCV) due on 03/01/2011 Prostate Cancer Screening Discussion Never done Colorectal Cancer Screening Never done Dilated Retinal Exam due on 03/13/2014 Shingrix Vaccine(1 of 2) Never done DTaP,Tdap,Td Vaccine(2 - Td or Tdap) due on 07/24/2018 Covid-19 Vaccine( season) Never done HbA1C due on 12/23/2024 Influenza Vaccine(Season Ended) due on 03/24/2025 Urine Albumin:Creatinine Ratio due on 03/29/2025 Diabetic Foot Exam due on 09/22/2025 LDL Cholesterol due on 09/23/2025 BP Controlled (<130/80) due on 10/31/2025 Hepatitis C Screening Completed Past History, Medications, Allergies PAST MEDICAL HISTORY Diagnosis Date Dyslipidemia Generalized anxiety disorder Anxiety, Generalized Hypertension Mixed hyperlipidemia Hyperlipidemia Obesity Seizures (HCC) Type II or unspecified type diabetes mellitus without mention of complication, not stated as uncontrolled PAST SURGICAL HISTORY Procedure Laterality Date ANESTHESIA ARTHROSCOPIC PROCEDURE [facility]TRANSPOS MEDIAN NRV CARPAL TUNNE Carpal tunnel decomp Current Outpatient Medications Medication Sig Dispense Refill donepezil (ARICEPT) 5 mg tablet Take 5 mg by mouth. naloxone 4 mg/actuation nasal spray (NARCAN) tamsulosin (FLOMAX) 0.4 mg Take 0.4 mg by mouth. atorvastatin (LIPITOR) 40 mg tablet 1 tablet by ORAL/FEEDING TUBE route daily at bedtime. 90 tablet aspirin 81 mg chewable tablet Take 1 tablet by mouth once daily. enoxaparin (LOVENOX) 40 mg/0.4 mL Inject 0.4 mL subcutaneously every 12 hours. losartan (COZAAR) 25 mg tablet Take 3 tablets by mouth once daily. 270 tablet insulin glargine 100 unit/mL (3 mL) Inject 20 Units subcutaneously every morning. (Patient taking differently: Inject 36 Units subcutaneously every morning.) insulin lispro (HUMALOG U-100 INSULIN) 100 unit/mL injection Admin Instructions: ADMINISTER CORRECTIONAL INSULIN REGARDLESS OF MEAL OR NUTRITION INTAKE Scale 2 If Blood Glucose (mg/dL) is <110 Give 0 units, 111-150 Give 0 units, 151-200 Give 2 units, 201-250 Give 4 units, 251-300 Give 6 units, 301-350 Give 8 units, 351-400 Give 10 units, >400 give 10units and notify provider. zonisamide (ZONEGRAN) 100 mg capsule Take 2 capsules by mouth daily at bedtime. 180 capsule 0 gabapentin 100 mg tab Take 3 tablets by mouth three times a day for 90 days. 270 tablet 2 OXcarbazepine (TRILEPTAL) 150 mg tablet Take 150 mg by mouth two times a day. COMPOUNDED PRESCRIPTION Knee High Compression Stockings 20-30 mm, DX: Edema and venous insufficiency 4 Each 0 Blood-Glucose Meter (FREESTYLE LITE METER) monitoring kit Use as instructed. (more content not included)... Normal [facility] 11-25-2024 [place]UCK[place] Telephone (CHUNIN) EVANGELISTA BORREGO JR ([id number]) 1965 M Date Time Provider Department 11/25/24 BLAIRE DENNEY During your visit today, we recorded the following information about you: Blaire Denney MD 11/25/2024 2:41 PM Signed Please let the facility know that I reviewed the blood sugars. To continue current insulin regimen MD Arian Omalley Wendy, LPN 11/25/2024 2:58 PM Signed Called [facility] @ [phone] Spoke to staff. Relayed providers message below Staff verbalized good understanding No further questions/concerns at this time. Hailey Don LPN Allergies As of Date: 11/25/2024 (No Known Allergies) Date Reviewed: 11/25/2024 Reviewed by: Mariel Aguila MA - Fully Assessed Reason for Visit: Patient Update [1234] Prescriptions as of 11/26/2024 - donepezil (ARICEPT) 5 mg tablet Take 5 mg by mouth. - naloxone 4 mg/actuation nasal spray (NARCAN) - tamsulosin (FLOMAX) 0.4 mg Take 0.4 mg by mouth. - atorvastatin (LIPITOR) 40 mg tablet 1 tablet by ORAL/FEEDING TUBE route daily at bedtime. - aspirin 81 mg chewable tablet Take 1 tablet by mouth once daily. - enoxaparin (LOVENOX) 40 mg/0.4 mL Inject 0.4 mL subcutaneously every 12 hours. - losartan (COZAAR) 25 mg tablet Take 3 tablets by mouth once daily. - insulin glargine 100 unit/mL (3 mL) Inject 20 Units subcutaneously every morning. - insulin lispro (HUMALOG U-100 INSULIN) 100 unit/mL injection Admin Instructions: ADMINISTER CORRECTIONAL INSULIN REGARDLESS OF MEAL OR NUTRITION INTAKE Scale 2 If Blood Glucose (mg/dL) is <110 Give 0 units, 111-150 Give 0 units, 151-200 Give 2 units, 201-250 Give 4 units, 251-300 Give 6 units, 301-350 Give 8 units, 351-400 Give 10 units, >400 give 10units and notify provider. - zonisamide (ZONEGRAN) 100 mg capsule Take 2 capsules by mouth daily at bedtime. - gabapentin 100 mg tab Take 3 tablets by mouth three times a day for 90 days. - OXcarbazepine (TRILEPTAL) 150 mg tablet Take 150 mg by mouth two times a day. - COMPOUNDED PRESCRIPTION Knee High Compression Stockings 20-30 mm, DX: Edema and venous insufficiency - Blood-Glucose Meter (FREESTYLE LITE METER) monitoring kit Use as instructed. - blood sugar diagnostic (FREESTYLE LITE STRIPS) test strip Use as instructed. Meds Comments as of 08/11/2011: Pt is on an inhaler, unsure of the name, will call office with info. Charla Mcclellan Ma Problem List As Of Date 11/25/2024 Noted Resolved Seizures [R56.9] 03/31/2009 DM (diabetes mellitus) (HCC) [E11.9] 03/31/2009 Anxiety [F41.9] 03/31/2009 Other hyperlipidemia [E78.49] 03/31/2009 Unspecified Site of Ankle Sprain and Strain [S9*04/17/2009 Excessive Anger [R45.4] 06/01/2009 Pain in joint, shoulder region [M25.519] 02/03/2012 Backache, unspecified [M54.9] 02/03/2012 Sleep apnea [G47.30] 07/26/2012 Occlusion and stenosis of left posterior cerebr*09/22/2024 Occlusion of left posterior cerebral artery [I6*09/22/2024 Dysphagia [R13.10] 09/23/2024 Cerebrovascular accident (CVA) due to occlusion*09/23/2024 Essential (primary) hypertension [I10] 09/23/2024 Obesity, Class III, BMI >= 40 [E66.813] 09/23/2024 Alteration in self-care ability [R68.89] 09/24/2024 Impaired mobility [Z74.09] 09/24/2024 At risk for falls [Z91.81] 09/24/2024 Cerebrovascular accident (CVA) (HCC) [I63.9] 09/25/2024 Dysarthria [R47.1] 09/25/2024 Aphasia [R47.01] 09/25/2024 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 COMMENT Normal . [facility] Comment on above: Order Comment: 108.2 SERUM ROOM TEMP [id number] OXCARBAZEPINE SERUM OR PLASMA Result Comment: Test Ordered: [id number] Oxcarbazepine (Trileptal),S Oxcarbazepine 2 [L ] ug/mL BN Reference Range: 10-35 This test was developed and its performance characteristics determined by [facility]. It has not been cleared or approved by the Food and Drug Administration. Detection Limit = 1 Performed at: - [address] [id number] Side Panel Hanger: Ashley Connell MD, Phone: [phone] Performed at: - [facility] [id number] Side Panel Hanger: Norman Butcher PhD, Phone: [phone] Performed By: #### L 100.0500, [id number], L3410.9998 #### [facility] [address] [place], [place], [id number] CNOVon 10-31-2024 CNOV Office Visit (NECVS8) EVANGELISTA BORREGO JR ([id number]) 1965 M Date Time Provider Department 10/31/24 1:35 PM DODIE IRVIN NECVS8 During your visit today, we recorded the following information about you: Pulse Blood pressure 55/minute 105/55 Dodie Irvin, BLEACH ANALYST.WARDROBE COORDINATOR 10/31/2024 2:18 PM Signed [facility] Established Visit Consultation is requested by: Joe Zamora [address] [facility] [address] PCP: Adriana Shaw MD ([facility]) [address] [place] [address] CEREBROVASCULAR HISTORY Evangelista Borrego JR is a 59 year old male. Stroke Event Information [facility] 09/22/24-09/29/24 Mr. Evangelista Borrego is a 59 yo male with a PMH significant for T2DM, LYLE, HLD, seizures on phenytoin who presents as a transfer from OSH for left P1 occlusion. Per OSH records, LKW 9 PM on 09/21 when his son dropped him off at a family members house to help care for another family member. He was found laying on the floor by his son with right side weakness and slurred speech today at 5 PM on 09/22. iNIHSS at OSH was 7 for dysarthria, right hemiparesis, and RUE dysmetria. Patient was alert and conversant upon presentation. BP 150/85. POC 258. Not on AC. CTH with NAP, but demonstrates encephalomalacia in left paramedian occipital lobe. 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 Unclear chronicity of the occlusion. Patient was determined not to be a candidate for TNK given time from [facility]. Recommendation was made to give ASA load and keep patient flat. Patient transferred to [facility] SDU for further observation and workup. Office Visit 10/31/24 Patient presents for hospital discharge follow up. Patient denies any new or worsening signs or symptoms of stroke. Patient denies any one sided weakness, facial droop, changes in speech or vision. Patient is taking all medications as prescribed. Blood pressure has been controlled Discharged to AR Continued stroke deficits of ataxia, aphagia, dysarthria and right side weakness. Unable to lift arm or leg. Completely aphasic, nonsensical speech. Unable to correctly answer yes/no questions Dysarthria improved and passed for bite sized diet Patient is working with Physical/Occupationa l/Speech therapy with mild/n improvement. The patient understands the discussed etiology of TIA/stroke with further risk factor management for secondary stroke prevention. PAST MEDICAL HISTORY Diagnosis Date Dyslipidemia Generalized anxiety disorder Anxiety, Generalized Hypertension Mixed hyperlipidemia Hyperlipidemia Obesity Seizures (HCC) Type II or unspecified type diabetes mellitus without mention of complication, not stated as uncontrolled PAST SURGICAL HISTORY Procedure Laterality Date ANESTHESIA ARTHROSCOPIC PROCEDURE [facility]/TRANSPOS MEDIAN NRV CARPAL TUNNE Carpal tunnel decomp FAMILY HISTORY Problem Relation Age of Onset Cancer Mother other (UNKNOWN [Other]) Father Diabetes Brother Social History Tobacco Use Smoking status: Never Smokeless tobacco: Never Substance Use Topics Alcohol use: No Drug use: No MEDICATIONS Current Outpatient Medications Medication Sig atorvastatin (LIPITOR) 40 mg tablet 1 tablet by ORAL/FEEDING TUBE route daily at bedtime. aspirin 81 mg chewable tablet Take 1 tablet by mouth once daily. enoxaparin (LOVENOX) 40 mg/0.4 mL Inject 0.4 mL subcutaneously every 12 hours. losartan (COZAAR) 25 mg tablet Take 3 tablets by mouth once daily. insulin glargine 100 unit/mL (3 mL) Inject 20 Units subcutaneously every morning. insulin lispro (HUMALOG U-100 INSULIN) 100 unit/mL injection Admin Instructions: ADMINISTER CORRECTIONAL INSULIN REGARDLESS OF MEAL OR NUTRITION INTAKE Scale 2 If Blood Glucose (mg/dL) is <110 Give 0 units, 111-150 Give 0 units, 151-200 Give 2 units, 201-250 Give 4 units, 251-300 Give 6 units, 301-350 Give 8 units, 351-400 Give 10 units, >400 give 10units and notify provider. zonisamide (ZONEGRAN) 100 mg capsule Take 2 capsules by mouth daily at bedtime. gabapentin 100 mg tab Take 3 tablets by mouth three times a day for 90 days. OXcarbazepine (TRILEPTAL) 150 mg tablet Take 150 mg by mouth two times a day. COMPOUNDED PRESCRIPTION Knee High Compression Stockings 20-30 mm, DX: Edema and venous insufficiency Blood-Glucose Meter (FREESTYLE LITE METER) monitoring kit Use as instructed. blood sugar diagnostic (FREESTYLE LITE STRIPS) test strip Use as instructed. No current facility-administere d medications for this visit. ALLERGIES ALLERGIES No Known Allergies PHYSICAL EXAMINATION There were no vitals taken for this visit. General: Well-developed, well-nourished, in no acute distress. HEENT: Normocephalic, atraumatic. Sclerae anicteric. Oropharyn (more content not included)... Normal [facility].on 10-31-2024 [facility]. COMMENT Normal . [facility] Comment on above: Order Comment: 108.2 SERUM ROOM TEMP [id number] ZONISAMIDE SERUM OR PLASM Result Comment: Test Ordered: [id number] Zonisamide(Zonegran), Serum Zonisamide 7.0 [L ] ug/mL Reference Range: 10.0-40.0 Detection Limit = 2.0 Performed at: [address] [id number] Side Panel Hanger: Ashley Connell MD, Phone: [phone] Performed at: - [facility], [place], [place] [id number] Side Panel Hanger: Norman Butcher PhD, Phone: [phone] Performed By: #### L 8834.8304 #### [facility] [address] [place], [address] 36on 10-28-2024 36 S: Nurse spoke with [facility] nurse regarding fall B: Onset of symptoms/concern tonight A: Nay-Nurse from [facility] for a witnessed fall out of his wheelchair. No loss of consciousness, injury or c/o at this time. Patient was assisted back to wheelchair via fco lift. R: No further needs at this time. Instructed to call back with new or worsening symptoms. Reason for Disposition General information question, no triage required and triager able to answer question Protocols used: Information Only Call - No [facility] CBC-Complete Blood Cnt No Di ffon 10-28-2024 Erythrocyte distribution width (RBC) [Ratio] 13.6 % Normal 11.6-14.6 [facility] Comment on above: Order Comment: 108.2 Performed By: #### L 100.0500, L500.4050, L3410.9998 #### [facility] [address] [facility] [id number] Hematocrit (Bld) [Volume fraction] 39.3 % Low 40-54 [facility] Comment on above: Order Comment: 108.2 Performed By: #### L 100.0500, L500.4050, L3410.9998 #### [facility] [address] [facility] [address] Hemoglobin (Bld) [Mass/Vol] 13.8 g/dL Normal 13.0-16.5 [facility] Comment on above: Order Comment: 108.2 Performed By: #### L 100.0500, L500.4050, L3410.9998 #### [facility] [address] [place], [address] MCH (RBC) [Entitic mass] 30.8 pg Normal 27.0-32.0 [facility] Comment on above: Order Comment: 108.2 Performed By: #### L 100.0500, L500.4050, L3410.9998 #### [facility] [address] [place], [address] MCHC (RBC) [Mass/Vol] 35.1 g/dL Normal 32-36 [facility] Comment on above: Order Comment: 108.2 Performed By: #### L 100.0500, L500.4050, L3410.9998 #### [facility] [address] [place], [address] MCV (RBC) [Entitic vol] 87.7 fL Normal 80-94 [facility] Comment on above: Order Comment: 108.2 Performed By: #### L 100.0500, L500.4050, L3410.9998 #### [facility] [address] [place], [address] Platelet mean volume (Bld) [Entitic vol] 10.2 fL Normal 6.2-12.0 [facility] Comment on above: Order Comment: 108.2 Performed By: #### L 100.0500, L500.4050, L3410.9998 #### [facility] [address] [place], [address] Platelets (Bld) [#/Vol] 223 10*3/uL Normal 150-450 [facility] Comment on above: Order Comment: 108.2 Performed By: #### L 100.0500, L500.4050, L3410.9998 #### [facility] [address] [place], [address] RBC (Bld) [#/Vol] 4.48 10*6/uL Low 4.6-6.2 [facility] Comment on above: Order Comment: 108.2 Performed By: #### L 100.0500, L500.4050, L3410.9998 #### [facility] [address] [place], [address] RDW SD 43.3 fl Normal 35.1-43.9 [facility] Comment on above: Order Comment: 108.2 Performed By: #### L 100.0500, L500.4050, L3410.9998 #### [facility] [address] [place], [address] WBC (Bld) [#/Vol] 5.8 10*3/uL Normal 4.4-11.0 [facility] Comment on above: Order Comment: 108.2 Performed By: #### L 100.0500, L500.4050, L3410.9998 #### [facility] [address] [place], [address] Comprehensive Metabolic Prof [facility] 10-28-2024 Albumin [Mass/Vol] 3.6 g/dL Normal 3.5-5.0 [facility] Comment on above: Order Comment: 108.2 Performed By: #### L 100.0500, L500.4050, L3410.9998 #### [facility] [address] [place], [address] Albumin/Globulin [Mass ratio] 1.3 {ratio} Normal 0.9-2.4 [facility] Comment on above: Order Comment: 108.2 Performed By: #### L 100.0500, L500.4050, L3410.9998 #### [facility] [address] [place], [address] ALK PHOS 86 U/L Normal 40-129 [facility] Comment on above: Order Comment: 108.2 Performed By: #### L 100.0500, L500.4050, L3410.9998 #### [facility] [address] [place], [address] ALT [Catalytic activity/Vol] 28 U/L Normal <=46 [facility] Comment on above: Order Comment: 108.2 Performed By: #### L 100.0500, L500.4050, L3410.9998 #### [facility] [address] [place], [address] AST [Catalytic activity/Vol] 25 U/L Normal <=37 [facility] Comment on above: Order Comment: 108.2 Performed By: #### L 100.0500, L500.4050, L3410.9998 #### [facility] [address] [place], [address] Bilirubin [Mass/Vol] 0.35 mg/dL Normal 0.00-1.30 [facility] Comment on above: Order Comment: 108.2 Performed By: #### L 100.0500, L500.4050, L3410.9998 #### [facility] [address] [place], [address] BUN/CRE 14.6 RATIO Normal 10-20 [facility] Comment on above: Order Comment: 108.2 Performed By: #### L 100.0500, L500.4050, L3410.9998 #### [facility] [address] [place], [address] Calcium [Mass/Vol] 8.8 mg/dL Normal 7.6-11.0 [facility] Comment on above: Order Comment: 108.2 Performed By: #### L 100.0500, L500.4050, L3410.9998 #### [facility] [address] [place], [address] Chloride [Moles/Vol] 109 mmol/L High 98-108 [facility] Comment on above: Order Comment: 108.2 Performed By: #### L 100.0500, L500.4050, L3410.9998 #### [facility] [address] [place], [address] CO2 [Moles/Vol] 22.9 mmol/L Normal 21.0-32.0 [facility] Comment on above: Order Comment: 108.2 Performed By: #### L 100.0500, L500.4050, L3410.9998 #### [facility] [address] [place], [address] Creatinine [Mass/Vol] 0.96 mg/dL Normal 0.70-1.20 [facility] Comment on above: Order Comment: 108.2 Performed By: #### L 100.0500, L500.4050, L3410.9998 #### [facility] [address] [place], [address] GAP 11 Normal 5-15 [facility] Comment on above: Order Comment: 108.2 Performed By: #### L 100.0500, L500.4050, L3410.9998 #### [facility] [address] [place], [address] GFR/1.73 sq M.predicted among non-blacks MDRD (S/P/Bld) [Vol rate/Area] 91 mL/min/{1.73_m2} Normal >60 [facility] Comment on above: Order Comment: 108.2 Result Comment: mL/m in/1.73m2 CKD-EPI Creatinine Equation (2020) Performed By: #### L 100.0500, L500.4050, L3410.9998 #### [facility] [address] [place], [address] Globulin (S) [Mass/Vol] 2.8 g/dL Normal 2.2-4.2 [facility] Comment on above: Order Comment: 108.2 Performed By: #### L 100.0500, L500.4050, L3410.9998 #### [facility] [address] [place], [address] Glucose [Mass/Vol] 102 mg/dL High 70-99 [facility] Comment on above: Order Comment: 108.2 Performed By: #### L 100.0500, L500.4050, L3410.9998 #### [facility] [address] [place], [address] Potassium [Moles/Vol] 3.9 mmol/L Normal 3.3-5.1 [facility] Comment on above: Order Comment: 108.2 Result Comment: Hemo lysis present, Results??could be affected. ?? Performed By: #### L 100.0500, L500.4050, L3410.9998 #### [facility] [address] [place], [address] Sodium [Moles/Vol] 142 mmol/L Normal 133-145 [facility] Comment on above: Order Comment: 108.2 Performed By: #### L 100.0500, L500.4050, L3410.9998 #### [facility] [address] [place], [address] T PROT 6.5 g/dL Normal 5.9-8.4 [facility] Comment on above: Order Comment: 108.2 Performed By: #### L 100.0500, L500.4050, L3410.9998 #### [facility] [address] [place], [address] Urea nitrogen [Mass/Vol] 14 mg/dL Normal 4-19 [facility] Comment on above: Order Comment: 108.2 Performed By: #### L 100.0500, L500.4050, L3410.9998 #### [facility] [address] [place], [address] Basic metabolic 2000 panelon 10-21-2024 Anion gap [Moles/Vol] 14 mmol/L 8 - 15 mmol/L [facility] Calcium [Mass/Vol] 9 mg/dL 8.5 - 10. 2 mg/dL [facility] Chloride [Moles/Vol] 105 mmol/L 98 - 10 7 mmol/L [facility] CO2 [Moles/Vol] 22 mmol/L 22 - 30 mmol/L [facility] Creatinine [Mass/Vol] 0.98 mg/dL 0.73 - 1.22 mg/dL [facility] GFR/1.73 sq M.predicted among non-blacks MDRD (S/P/Bld) [Vol rate/Area] 89 mL/min/{1.73_m2} - PINF [facility] Comment on above: Estimated Glomerular Filtration Rate (eGFR) is calculated using the 2020 CKD-EPI creatinine equation. This equation utilizes serum creatinine, sex, and age as parameters. The creatinine assay has traceable calibration to isotope dilution-mass spectrometry. Refer to KDIGO guidelines for clinical interpretation. In patients with unstable renal function, e.g. those with acute kidney injury, the eGFR may not accurately reflect actual GFR. Glucose [Mass/Vol] 88 mg/dL 74 - 99 mg/dL [facility] Comment on above: The [place] Diab[employer] s Association (ADA) provides guidance for cutoff values for fasting glucose and random glucose. The ADA defines fasting as no caloric intake for at least 8 hours. Fasting plasma glucose results between 100 to 125 mg/dL indicate increased risk for diabetes (prediabetes). Fasting plasma glucose results greater than or equal to 126 mg/dL meet the criteria for diagnosis of diabetes. In the absence of unequivocal hyperglycemia, results should be confirmed by repeat testing. In a patient with classic symptoms of hyperglycemia or hyperglycemic crisis, random plasma glucose results greater than or equal to 200 mg/dL meet the criteria for diagnosis of diabetes. Reference: Standards of Medical Care in Diabetes 2016, [place] [employer]. Diabetes Care. 2016.39(Suppl 1). Interpretation and review of laboratory results Normal [facility] Potassium [Moles/Vol] 3.9 mmol/L 3.7 - 5.1 mmol/L [facility] Sodium [Moles/Vol] 141 mmol/L 136 - 144 mmol/L [facility] Urea nitrogen [Mass/Vol] 18 mg/dL 9 - 24 mg/dL [facility] Anion gap [Moles/Vol] 14 mmol/L Normal 8-15 [facility] Comment on above: Order Comment: Speci men Type: BLOOD SPECIMENOrdering Facility: [facility] Address: [address] [place] [address] Performed By: #### 2 4321-2 ####[facility]AN[facility] LABORATORYCLIA [id number] [place] [address] [place] Calcium [Mass/Vol] 9.0 mg/dL Normal 8.5-10.2 [facility] Comment on above: Order Comment: Speci men Type: BLOOD SPECIMENOrdering Facility: [facility] Address: [address] [place] [address] Performed By: #### 2 4321-2 ####ALANIS LABORATORYCLIA [id number] [place] [address] [place] Chloride [Moles/Vol] 105 mmol/L Normal 98-107 [facility] Comment on above: Order Comment: Speci men Type: BLOOD SPECIMENOrdering Facility: [facility] Address: [address] [place] [address] Performed By: #### 2 4321-2 ####ALANIS LABORATORYCLIA [id number] [place] [address] [place] CO2 [Moles/Vol] 22 mmol/L Normal 22-30 [facility] Comment on above: Order Comment: Speci men Type: BLOOD SPECIMENOrdering Facility: [facility] Address: [address] [place] [address] Performed By: #### 2 4321-2 ####ALANIS LABORATORYCLIA [id number] [place] [address] [place] Creatinine [Mass/Vol] 0.98 mg/dL Normal 0.73-1.22 [facility] Comment on above: Order Comment: Speci men Type: BLOOD SPECIMENOrdering Facility: [facility] Address: [address] [place] [address] Performed By: #### 2 4321-2 ####ALANIS LABORATORYCLIA [id number] [place] [address] [place] Creatinine and Glomerular filtration rate.predicted panel (S/P/Bld) 89 mL/min/1.73m??? Normal >=60 [facility] Comment on above: Order Comment: Jonas florez Type: BLOOD SPECIMENOrdering Facility: [facility] Address: [address] [place] [address] Result Comment: Bianca mated Glomerular Filtration Rate (eGFR) is calculated using the 2020 CKD-EPI creatinine equation. This equation utilizes serum creatinine, sex, and age as parameters. The creatinine assay has traceable calibration to isotope dilution-mass spectrometry. Refer to KDIGO guidelines for clinical interpretation. In patients with unstable renal function, e.g. those with acute kidney injury, the eGFR may not accurately reflect actual GFR. Performed By: #### 2 4321-2 ####ABEBA LABORATORYCLIA [id number] [place] [address] [place] Glucose [Mass/Vol] 88 mg/dL Normal 74-99 [facility] Comment on above: Order Comment: Jonas florez Type: BLOOD SPECIMENOrdering Facility: [facility] Address: [address] [place] [address] Result Comment: The [place] Diabetes [employer] (ADA) provides guidance for cutoff values for fasting glucose and random glucose. The ADA defines fasting as no caloric intake for at least 8 hours. Fasting plasma glucose results between 100 to 125 mg/dL indicate increased risk for diabetes (prediabetes). Fasting plasma glucose results greater than or equal to 126 mg/dL meet the criteria for diagnosis of diabetes. In the absence of unequivocal hyperglycemia, results should be confirmed by repeat testing. In a patient with classic symptoms of hyperglycemia or hyperglycemic crisis, random plasma glucose results greater than or equal to 200 mg/dL meet the criteria for diagnosis of diabetes. Reference: Standards of Medical Care in Diabetes 2016, [place] [employer]. Diabetes Care. 2016.39(Suppl 1). Performed By: #### 2 4321-2 ####ALANIS LABORATORYCLIA [id number] [place] [id number] [place] Potassium [Moles/Vol] 3.9 mmol/L Normal 3.7-5.1 [facility] Comment on above: Order Comment: Jonas florez Type: BLOOD SPECIMENOrdering Facility: [facility] Address: [address] [place] [address] Performed By: #### 2 4321-2 ####ALANIS LABORATORYCLIA [id number] [address] Sodium [Moles/Vol] 141 mmol/L Normal 136-144 [facility] Comment on above: Order Comment: Speci men Type: BLOOD SPECIMENOrdering Facility: [facility] Address: [address] [place] [address] Performed By: #### 2 4321-2 ####ALANIS LABORATORYCLIA [id number] [address] STATES [facility] Urea nitrogen [Mass/Vol] 18 mg/dL Normal 9-24 [facility] Comment on above: Order Comment: Speci men Type: BLOOD SPECIMENOrdering Facility: [facility] Address: [address] [place] [address] Performed By: #### 2 4321-2 ####ALANIS LABORATORYCLIA [id number] [address] STATES OF [facility] CBC W Auto Differential pane l (Bld)on 10-21-2024 Basophils (Bld) [#/Vol] 0.05 10*3/uL [facility] Basophils/100 WBC (Bld) 0.7 % [facility] Differential cell count method Nom (Bld) Auto [facility] Eosinophils (Bld) [#/Vol] 0.21 10*3/uL [facility] Eosinophils/100 WBC (Bld) 2.8 % [facility] Erythrocyte distribution width (RBC) [Ratio] 13.5 % 11.5 - 15.0 % [facility] Hematocrit (Bld) [Volume fraction] 39 % 39.0 - 51.0 % [facility] Hemoglobin (Bld) [Mass/Vol] 13.4 g/dL 13.0 - 17.0 g/dL [facility] Immature granulocytes (Bld) [#/Vol] [facility] Immature granulocytes/100 WBC (Bld) 0.3 % [facility] Lymphocytes (Bld) [#/Vol] 3.01 10*3/uL [facility] Lymphocytes/100 WBC (Bld) 40.1 % [facility] MCH (RBC) [Entitic mass] 30.1 pg 26.0 - 34.0 pg [facility] MCHC (RBC) [Mass/Vol] 34.4 g/dL 30.5 - 36.0 g/dL [facility] MCV (RBC) [Entitic vol] 87.6 fL 80.0 - 100.0 fL [facility] Monocytes (Bld) [#/Vol] 0.35 10*3/uL [facility]F [facility] Monocytes/100 WBC (Bld) 4.7 % [facility] Neutrophils (Bld) [#/Vol] 3.86 10*3/uL [facility] Neutrophils/100 WBC (Bld) 51.4 % [facility] Nucleated RBC (Bld) [#/Vol] NINF [facility] Nucleated RBC/100 WBC (Bld) [Ratio] 0 % /100 WBC [facility] Platelet mean volume (Bld) [Entitic vol] 10.2 fL 9.0 - 12.7 fL [facility] Platelets (Bld) [#/Vol] 244 10*3/uL [facility] RBC (Bld) [#/Vol] 4.45 10*6/uL 4.20 - 6.0 0 m/uL [facility] WBC (Bld) [#/Vol] 7.5 10*3/uL [facility] Basophils (Bld) [#/Vol] 0.05 10*3/uL Normal <0.11 [facility] Comment on above: Order Comment: Speci men Type: BLOOD SPECIMENOrdering Facility: [facility] Address: [address] [place] [address] Performed By: #### 5 7021-8 ####ALANIS LABORATORYCLIA [id number] [address] Basophils/100 WBC (Bld) 0.7 % Normal [facility] Comment on above: Order Comment: Speci men Type: BLOOD SPECIMENOrdering Facility: [facility] Address: [address] [place] [address] Performed By: #### 5 7021-8 ####ALANIS LABORATORYCLIA [id number] [address] [place] Differential cell count method Nom (Bld) Auto Normal [facility] Comment on above: Order Comment: Speci men Type: BLOOD SPECIMENOrdering Facility: [facility] Address: [address] [place] [address] Performed By: #### 5 7021-8 ####ALANIS LABORATORYCLIA [id number] [address] Eosinophils (Bld) [#/Vol] 0.21 10*3/uL Normal <0.46 [facility] Comment on above: Order Comment: Speci men Type: BLOOD SPECIMENOrdering Facility: [facility] Address: [address] [place] [address] Performed By: #### 5 7021-8 ####ALANIS LABORATORYCLIA [id number] [address] Eosinophils/100 WBC (Bld) 2.8 % Normal [facility] Comment on above: Order Comment: Speci men Type: BLOOD SPECIMENOrdering Facility: [facility] Address: [address] [place] [address] Performed By: #### 5 7021-8 ####ALANIS LABORATORYCLIA [id number] [address] Erythrocyte distribution width (RBC) [Ratio] 13.5 % Normal 11.5-15.0 [facility] Comment on above: Order Comment: Speci men Type: BLOOD SPECIMENOrdering Facility: [facility] Address: [address] [place] [address] Performed By: #### 5 7021-8 ####ALANIS LABORATORYCLIA [id number] [address] Hematocrit (Bld) [Volume fraction] 39.0 % Normal 39.0-51.0 [facility] Comment on above: Order Comment: Speci men Type: BLOOD SPECIMENOrdering Facility: [facility] Address: [address] [place] [address] Performed By: #### 5 7021-8 ####ALANIS LABORATORYCLIA [id number] [place] [address] [place] Hemoglobin (Bld) [Mass/Vol] 13.4 g/dL Normal 13.0-17.0 [facility] Comment on above: Order Comment: Speci men Type: BLOOD SPECIMENOrdering Facility: [facility] Address: [address] [place] [address] Performed By: #### 5 7021-8 ####ALANIS LABORATORYCLIA [id number] [place] [address] [place] Immature granulocytes (Bld) [#/Vol] 10*3/uL Normal <0.10 [facility] Comment on above: Order Comment: Speci men Type: BLOOD SPECIMENOrdering Facility: [facility] Address: [address] [place] [address] Performed By: #### 5 7021-8 ####ALANIS LABORATORYCLIA [id number] [address] [place] Immature granulocytes/100 WBC (Bld) 0.3 % Normal [facility] Comment on above: Order Comment: Speci men Type: BLOOD SPECIMENOrdering Facility: [facility] Address: [address] [place] [address] Performed By: #### 5 7021-8 ####ALANIS LABORATORYCLIA [id number] [place] [address] [place] Lymphocytes (Bld) [#/Vol] 3.01 10*3/uL Normal 1.00-4.00 [facility] Comment on above: Order Comment: Speci men Type: BLOOD SPECIMENOrdering Facility: [facility] Address: [address] [place] [address] Performed By: #### 5 7021-8 ####ALANIS LABORATORYCLIA [id number] [address] [place] Lymphocytes/100 WBC (Bld) 40.1 % Normal [facility] Comment on above: Order Comment: Speci men Type: BLOOD SPECIMENOrdering Facility: [facility] Address: [address] [place] [address] Performed By: #### 5 7021-8 ####ALANIS LABORATORYCLIA [id number] [address] MCH (RBC) [Entitic mass] 30.1 pg Normal 26.0-34.0 [facility] Comment on above: Order Comment: Speci men Type: BLOOD SPECIMENOrdering Facility: [facility] Address: [address] [place] [address] Performed By: #### 5 7021-8 ####ALANIS LABORATORYCLIA [id number] [place] [address] [place] MCHC (RBC) [Mass/Vol] 34.4 g/dL Normal 30.5-36.0 [facility] Comment on above: Order Comment: Speci men Type: BLOOD SPECIMENOrdering Facility: [facility] Address: [address] [place] [address] Performed By: #### 5 7021-8 ####ALANIS LABORATORYCLIA [id number] [address] [place] MCV (RBC) [Entitic vol] 87.6 fL Normal 80.0-100.0 [facility] Comment on above: Order Comment: Speci men Type: BLOOD SPECIMENOrdering Facility: [facility] Address: [address] [place] [address] Performed By: #### 5 7021-8 ####ALANIS LABORATORYCLIA [id number] [address] [place] Monocytes (Bld) [#/Vol] 0.35 10*3/uL Normal <0.87 [facility] Comment on above: Order Comment: Speci men Type: BLOOD SPECIMENOrdering Facility: [facility] Address: [address] [place] [address] Performed By: #### 5 7021-8 ####ALANIS LABORATORYCLIA [id number] [address] Monocytes/100 WBC (Bld) 4.7 % Normal [facility] Comment on above: Order Comment: Speci men Type: BLOOD SPECIMENOrdering Facility: [facility] Address: [address] [place] [address] Performed By: #### 5 7021-8 ####ALANIS LABORATORYCLIA [id number] [place] [address] [place] Neutrophils (Bld) [#/Vol] 3.86 10*3/uL Normal 1.45-7.50 [facility] Comment on above: Order Comment: Speci men Type: BLOOD SPECIMENOrdering Facility: [facility] Address: [address] [place] [address] Performed By: #### 5 7021-8 ####ALANIS LABORATORYCLIA [id number] [place] [address] [place] Neutrophils/100 WBC (Bld) 51.4 % Normal [facility] Comment on above: Order Comment: Speci men Type: BLOOD SPECIMENOrdering Facility: [facility] Address: [address] [place] [address] Performed By: #### 5 7021-8 ####ALANIS LABORATORYCLIA [id number] [place] [address] [place] Nucleated RBC (Bld) [#/Vol] 10*3/uL Normal <0.01 [facility] Comment on above: Order Comment: Speci men Type: BLOOD SPECIMENOrdering Facility: [facility] Address: [address] [place] [address] Performed By: #### 5 7021-8 ####ALANIS LABORATORYCLIA [id number] [place] [address] [place] Nucleated RBC/100 WBC (Bld) [Ratio] 0.0 /100 WBC Normal [facility] Comment on above: Order Comment: Speci men Type: BLOOD SPECIMENOrdering Facility: [facility] Address: [address] [place] [address] Performed By: #### 5 7021-8 ####ALANIS LABORATORYCLIA [id number] [place] [address] [place] Platelet mean volume (Bld) [Entitic vol] 10.2 fL Normal 9.0-12.7 [facility] Comment on above: Order Comment: Speci men Type: BLOOD SPECIMENOrdering Facility: [facility] Address: [address] [place] [address] Performed By: #### 5 7021-8 ####ALANIS LABORATORYCLIA [id number] [address] Platelets (Bld) [#/Vol] 244 10*3/uL Normal 150-400 [facility] Comment on above: Order Comment: Speci men Type: BLOOD SPECIMENOrdering Facility: [facility] Address: [address] [place] [address] Performed By: #### 5 7021-8 ####ALANIS LABORATORYCLIA [id number] [place] [address] [place] RBC (Bld) [#/Vol] 4.45 10*6/uL Normal 4.20-6.00 [facility] Comment on above: Order Comment: Speci men Type: BLOOD SPECIMENOrdering Facility: [facility] Address: [address] [place] [address] Performed By: #### 5 7021-8 ####ALANIS LABORATORYCLIA [id number] [address] [place] WBC (Bld) [#/Vol] 7.50 10*3/uL Normal 3.70-11.00 [facility] Comment on above: Order Comment: Speci men Type: BLOOD SPECIMENOrdering Facility: [facility] Address: [address] [place] [address] Performed By: #### 5 7021-8 ####ALANIS LABORATORYCLIA [id number] [place] [id number] [place] Basic metabolic 2000 panelon 10-14-2024 Anion gap [Moles/Vol] 11 mmol/L 8 - 15 mmol/L [facility] Calcium [Mass/Vol] 9.1 mg/dL 8.5 - 10. 2 mg/dL [facility] Chloride [Moles/Vol] 107 mmol/L 98 - 10 7 mmol/L [facility] CO2 [Moles/Vol] 22 mmol/L 22 - 30 mmol/L [facility] Creatinine [Mass/Vol] 0.96 mg/dL 0.73 - 1.22 mg/dL [facility] GFR/1.73 sq M.predicted among non-blacks MDRD (S/P/Bld) [Vol rate/Area] 92 mL/min/{1.73_m2} - PINF [facility] Comment on above: Estimated Glomerular Filtration Rate (eGFR) is calculated using the 2020 CKD-EPI creatinine equation. This equation utilizes serum creatinine, sex, and age as parameters. The creatinine assay has traceable calibration to isotope dilution-mass spectrometry. Refer to KDIGO guidelines for clinical interpretation. In patients with unstable renal function, e.g. those with acute kidney injury, the eGFR may not accurately reflect actual GFR. Glucose [Mass/Vol] 140 mg/dL High 74 - 99 mg/dL [facility] Comment on above: The [place] Diab[employer] Association (ADA) provides guidance for cutoff values for fasting glucose and random glucose. The ADA defines fasting as no caloric intake for at least 8 hours. Fasting plasma glucose results between 100 to 125 mg/dL indicate increased risk for diabetes (prediabetes). Fasting plasma glucose results greater than or equal to 126 mg/dL meet the criteria for diagnosis of diabetes. In the absence of unequivocal hyperglycemia, results should be confirmed by repeat testing. In a patient with classic symptoms of hyperglycemia or hyperglycemic crisis, random plasma glucose results greater than or equal to 200 mg/dL meet the criteria for diagnosis of diabetes. Reference: Standards of Medical Care in Diabetes 2016, [place] [employer]. Diabetes Care. 2016.39(Suppl 1). Interpretation and review of laboratory results Abnormal [facility] Potassium [Moles/Vol] 4.4 mmol/L 3.7 - 5.1 mmol/L [facility] Sodium [Moles/Vol] 140 mmol/L 136 - 144 mmol/L [facility] Urea nitrogen [Mass/Vol] 18 mg/dL 9 - 24 mg/dL [facility] Anion gap [Moles/Vol] 11 mmol/L Normal 8-15 [facility] Comment on above: Order Comment: Speci men Type: BLOOD SPECIMENOrdering Facility: [facility] Address: [address] [place] [address] Performed By: #### 2 4321-2 ####ALNAIS LABORATORYCLIA [id number] [place] [address] [place] Calcium [Mass/Vol] 9.1 mg/dL Normal 8.5-10.2 [facility] Comment on above: Order Comment: Speci men Type: BLOOD SPECIMENOrdering Facility: [facility] Address: [address] [place] [address] Performed By: #### 2 4321-2 ####ALANIS LABORATORYCLIA [id number] [place] [address] [place] Chloride [Moles/Vol] 107 mmol/L Normal 98-107 [facility] Comment on above: Order Comment: Speci men Type: BLOOD SPECIMENOrdering Facility: [facility] Address: [address] [place] [address] Performed By: #### 2 4321-2 ####ALANIS LABORATORYCLIA [id number] [place] [address] [place] CO2 [Moles/Vol] 22 mmol/L Normal 22-30 [facility] Comment on above: Order Comment: Speci men Type: BLOOD SPECIMENOrdering Facility: [facility] Address: [address] [place] [address] Performed By: #### 2 4321-2 ####ALANIS LABORATORYCLIA [id number] [place] [address] [place] Creatinine [Mass/Vol] 0.96 mg/dL Normal 0.73-1.22 [facility] Comment on above: Order Comment: Speci men Type: BLOOD SPECIMENOrdering Facility: [facility] Address: [address] [place] [address] Performed By: #### 2 4321-2 ####ALANIS LABORATORYCLIA [id number] [place] [address] [place] Creatinine and Glomerular filtration rate.predicted panel (S/P/Bld) 92 mL/min/1.73m??? Normal >=60 [facility] Comment on above: Order Comment: Speci men Type: BLOOD SPECIMENOrdering Facility: [facility] Address: [address] [place] [address] Result Comment: Bianca mated Glomerular Filtration Rate (eGFR) is calculated using the 2020 CKD-EPI creatinine equation. This equation utilizes serum creatinine, sex, and age as parameters. The creatinine assay has traceable calibration to isotope dilution-mass spectrometry. Refer to KDIGO guidelines for clinical interpretation. In patients with unstable renal function, e.g. those with acute kidney injury, the eGFR may not accurately reflect actual GFR. Performed By: #### 2 4321-2 ####ALANIS LABORATORYCLIA [id number] [place] [address] [place] Glucose [Mass/Vol] 140 mg/dL High 74-99 [facility] Comment on above: Order Comment: Jnoas florez Type: BLOOD SPECIMENOrdering Facility: [facility] Address: [address] [place] [address] Result Comment: The [place] Diabetes Association (ADA) provides guidance for cutoff values for fasting glucose and random glucose. The ADA defines fasting as no caloric intake for at least 8 hours. Fasting plasma glucose results between 100 to 125 mg/dL indicate increased risk for diabetes (prediabetes). Fasting plasma glucose results greater than or equal to 126 mg/dL meet the criteria for diagnosis of diabetes. In the absence of unequivocal hyperglycemia, results should be confirmed by repeat testing. In a patient with classic symptoms of hyperglycemia or hyperglycemic crisis, random plasma glucose results greater than or equal to 200 mg/dL meet the criteria for diagnosis of diabetes. Reference: Standards of Medical Care in Diabetes 2016, [place] [employer]. Diabetes Care. 2016.39(Suppl 1). Performed By: #### 2 4321-2 ####ALANIS LABORATORYCLIA [id number] [place] [id number] [place] Potassium [Moles/Vol] 4.4 mmol/L Normal 3.7-5.1 [facility] Comment on above: Order Comment: Jonas florez Type: BLOOD SPECIMENOrdering Facility: [facility] Address: [address] [place] [address] Performed By: #### 2 4321-2 ####ALANIS LABORATORYCLIA [id number] [place] [address] [place] Sodium [Moles/Vol] 140 mmol/L Normal 136-144 [facility] Comment on above: Order Comment: Speci men Type: BLOOD SPECIMENOrdering Facility: [facility] Address: [address] [place] [address] Performed By: #### 2 4321-2 ####ALANIS LABORATORYCLIA [id number] [address] Urea nitrogen [Mass/Vol] 18 mg/dL Normal 9-24 [facility] Comment on above: Order Comment: Speci vikki Type: BLOOD SPECIMENOrdering Facility: [facility] Address: [address] [place] [address] Performed By: #### 2 4321-2 ####ALANIS LABORATORYCLIA [id number] [address] STATES OF [facility] CBC W Auto Differential pane l (Bld)on 10-14-2024 Basophils (Bld) [#/Vol] 0.07 10*3/uL [facility] Basophils/100 WBC (Bld) 0.9 % [facility] Differential cell count method Nom (Bld) Auto [facility] Eosinophils (Bld) [#/Vol] 0.28 10*3/uL [facility] Eosinophils/100 WBC (Bld) 3.5 % [facility] Erythrocyte distribution width (RBC) [Ratio] 12.8 % 11.5 - 15.0 % [facility] Hematocrit (Bld) [Volume fraction] 37 % Low 39.0 - 51.0 % [facility] Hemoglobin (Bld) [Mass/Vol] 13 g/dL 13.0 - 17.0 g/dL [facility] Immature granulocytes (Bld) [#/Vol] 0.06 10*3/uL [facility] Immature granulocytes/100 WBC (Bld) 0.7 % [facility] Interpretation and review of laboratory results Abnormal [facility] Lymphocytes (Bld) [#/Vol] 3.23 10*3/uL [facility] Lymphocytes/100 WBC (Bld) 40 % [facility] MCH (RBC) [Entitic mass] 30.3 pg 26.0 - 34.0 pg [facility] MCHC (RBC) [Mass/Vol] 35.1 g/dL 30.5 - 36.0 g/dL [facility] MCV (RBC) [Entitic vol] 86.2 fL 80.0 - 100.0 fL [facility] Monocytes (Bld) [#/Vol] 0.4 10*3/uL NINF [facility] Monocytes/100 WBC (Bld) 5 % [facility] Neutrophils (Bld) [#/Vol] 4.03 10*3/uL [facility] Neutrophils/100 WBC (Bld) 49.9 % [facility] Nucleated RBC (Bld) [#/Vol] NINF [facility] Nucleated RBC/100 WBC (Bld) [Ratio] 0 % /100 WBC [facility] Platelet mean volume (Bld) [Entitic vol] 10.2 fL 9.0 - 12.7 fL [facility] Platelets (Bld) [#/Vol] 317 10*3/uL [facility] RBC (Bld) [#/Vol] 4.29 10*6/uL 4.20 - 6.0 0 m/uL [facility] WBC (Bld) [#/Vol] 8.07 10*3/uL [facility] Basophils (Bld) [#/Vol] 0.07 10*3/uL Normal <0.11 [facility] Comment on above: Order Comment: Speci men Type: BLOOD SPECIMENOrdering Facility: [facility] Address: [address] [place] [address] Performed By: #### 5 7021-8 ####ALANIS LABORATORYCLIA [id number] [address] STATES OF [facility] Basophils/100 WBC (Bld) 0.9 % Normal [facility] Comment on above: Order Comment: Speci men Type: BLOOD SPECIMENOrdering Facility: [facility] Address: [address] [place] [address] Performed By: #### 5 7021-8 ####ALANIS LABORATORYCLIA [id number] [address] [place] Differential cell count method Nom (Bld) Auto Normal [facility] Comment on above: Order Comment: Speci men Type: BLOOD SPECIMENOrdering Facility: [facility] Address: [address] [place] [address] Performed By: #### 5 7021-8 ####ALANIS LABORATORYCLIA [id number] [place] [address] [place] Eosinophils (Bld) [#/Vol] 0.28 10*3/uL Normal <0.46 [facility] Comment on above: Order Comment: Speci men Type: BLOOD SPECIMENOrdering Facility: [facility] Address: [address] [place] [address] Performed By: #### 5 7021-8 ####ALANIS LABORATORYCLIA [id number] [address] [place] Eosinophils/100 WBC (Bld) 3.5 % Normal [facility] Comment on above: Order Comment: Speci men Type: BLOOD SPECIMENOrdering Facility: [facility] Address: [address] [place] [address] Performed By: #### 5 7021-8 ####ALANIS LABORATORYCLIA [id number] [address] [place] Erythrocyte distribution width (RBC) [Ratio] 12.8 % Normal 11.5-15.0 [facility] Comment on above: Order Comment: Speci men Type: BLOOD SPECIMENOrdering Facility: [facility] Address: [address] [place] [address] Performed By: #### 5 7021-8 ####ALANIS LABORATORYCLIA [id number] [address] [place] Hematocrit (Bld) [Volume fraction] 37.0 % Low 39.0-51.0 [facility] Comment on above: Order Comment: Speci men Type: BLOOD SPECIMENOrdering Facility: [facility] Address: [address] [place] [address] Performed By: #### 5 7021-8 ####ALANIS LABORATORYCLIA [id number] [address] [place] Hemoglobin (Bld) [Mass/Vol] 13.0 g/dL Normal 13.0-17.0 [facility] Comment on above: Order Comment: Speci men Type: BLOOD SPECIMENOrdering Facility: [facility] Address: [address] [place], [place] [id number] Performed By: #### 5 7021-8 ####ALANIS LABORATORYCLIA [id number] [place] [address] [place] Immature granulocytes (Bld) [#/Vol] 0.06 10*3/uL Normal <0.10 [facility] Comment on above: Order Comment: Speci men Type: BLOOD SPECIMENOrdering Facility: [facility] Address: [address] [place] [address] Performed By: #### 5 7021-8 ####ALANIS LABORATORYCLIA [id number] [address] [place] Immature granulocytes/100 WBC (Bld) 0.7 % Normal [facility] Comment on above: Order Comment: Speci men Type: BLOOD SPECIMENOrdering Facility: [facility] Address: [address] [place] [address] Performed By: #### 5 7021-8 ####ALANIS LABORATORYCLIA [id number] [place] [address] [place] Lymphocytes (Bld) [#/Vol] 3.23 10*3/uL Normal 1.00-4.00 [facility] Comment on above: Order Comment: Speci men Type: BLOOD SPECIMENOrdering Facility: [facility] Address: [address] [place] [address] Performed By: #### 5 7021-8 ####ALANIS LABORATORYCLIA [id number] [address] [place] Lymphocytes/100 WBC (Bld) 40.0 % Normal [facility] Comment on above: Order Comment: Speci men Type: BLOOD SPECIMENOrdering Facility: [facility] Address: [address] [place] [address] Performed By: #### 5 7021-8 ####ALANIS LABORATORYCLIA [id number] [place] [address] [place] MCH (RBC) [Entitic mass] 30.3 pg Normal 26.0-34.0 [facility] Comment on above: Order Comment: Speci men Type: BLOOD SPECIMENOrdering Facility: [facility] Address: [address] [place] [address] Performed By: #### 5 7021-8 ####ALANIS LABORATORYCLIA [id number] [place] [address] [place] MCHC (RBC) [Mass/Vol] 35.1 g/dL Normal 30.5-36.0 [facility] Comment on above: Order Comment: Speci men Type: BLOOD SPECIMENOrdering Facility: [facility] Address: [address] [place] [address] Performed By: #### 5 7021-8 ####ALANIS LABORATORYCLIA [id number] [place] [address] [place] MCV (RBC) [Entitic vol] 86.2 fL Normal 80.0-100.0 [facility] Comment on above: Order Comment: Speci men Type: BLOOD SPECIMENOrdering Facility: [facility] Address: [address] [place] [address] Performed By: #### 5 7021-8 ####ALANIS LABORATORYCLIA [id number] [place] [address] [place] Monocytes (Bld) [#/Vol] 0.40 10*3/uL Normal <0.87 [facility] Comment on above: Order Comment: Speci men Type: BLOOD SPECIMENOrdering Facility: [facility] Address: [address] [place] [address] Performed By: #### 5 7021-8 ####ALANIS LABORATORYCLIA [id number] [place] [address] [place] Monocytes/100 WBC (Bld) 5.0 % Normal [facility] Comment on above: Order Comment: Speci men Type: BLOOD SPECIMENOrdering Facility: [facility] Address: [address] [place] [address] Performed By: #### 5 7021-8 ####ALANIS LABORATORYCLIA [id number] [place] [address] [place] Neutrophils (Bld) [#/Vol] 4.03 10*3/uL Normal 1.45-7.50 [facility] Comment on above: Order Comment: Speci men Type: BLOOD SPECIMENOrdering Facility: [facility] Address: [address] [place] [address] Performed By: #### 5 7021-8 ####ALANIS LABORATORYCLIA [id number] [address] Neutrophils/100 WBC (Bld) 49.9 % Normal [facility] Comment on above: Order Comment: Speci men Type: BLOOD SPECIMENOrdering Facility: [facility] Address: [address] [place] [address] Performed By: #### 5 7021-8 ####ALANIS LABORATORYCLIA [id number] [address] Nucleated RBC (Bld) [#/Vol] 10*3/uL Normal <0.01 [facility] Comment on above: Order Comment: Speci men Type: BLOOD SPECIMENOrdering Facility: [facility] Address: [address] [place] [address] Performed By: #### 5 7021-8 ####ALANIS LABORATORYCLIA [id number] [address] Nucleated RBC/100 WBC (Bld) [Ratio] 0.0 /100 WBC Normal [facility] Comment on above: Order Comment: Speci men Type: BLOOD SPECIMENOrdering Facility: [facility] Address: [address] [place] [address] Performed By: #### 5 7021-8 ####ALANIS LABORATORYCLIA [id number] [address] [place] Platelet mean volume (Bld) [Entitic vol] 10.2 fL Normal 9.0-12.7 [facility] Comment on above: Order Comment: Speci men Type: BLOOD SPECIMENOrdering Facility: [facility] Address: [address] [place] [address] Performed By: #### 5 7021-8 ####ALANIS LABORATORYCLIA [id number] [address] [place] Platelets (Bld) [#/Vol] 317 10*3/uL Normal 150-400 [facility] Comment on above: Order Comment: Speci men Type: BLOOD SPECIMENOrdering Facility: [facility] Address: [address] [place] [address] Performed By: #### 5 7021-8 ####ALANIS LABORATORYCLIA [id number] [place] [address] [place] RBC (Bld) [#/Vol] 4.29 10*6/uL Normal 4.20-6.00 [facility] Comment on above: Order Comment: Speci men Type: BLOOD SPECIMENOrdering Facility: [facility] Address: [address] [place] [address] Performed By: #### 5 7021-8 ####ALANIS LABORATORYCLIA [id number] [address] WBC (Bld) [#/Vol] 8.07 10*3/uL Normal 3.70-11.00 [facility] Comment on above: Order Comment: Speci men Type: BLOOD SPECIMENOrdering Facility: [facility] Address: [address] [place] [address] Performed By: #### 5 7021-8 ####ALANIS LABORATORYCLIA [id number] [address] 10-Hydroxycarbazepine [Mass/ Vol]Ordered By: Evangelista Allen on 10-09-2024 Interpretation and review of laboratory results Normal [facility] Basic metabolic 2000 panelon 10-09-2024 Anion gap [Moles/Vol] 12 mmol/L 8 - 15 mmol/L [facility] Calcium [Mass/Vol] 8.9 mg/dL 8.5 - 10. 2 mg/dL [facility] Chloride [Moles/Vol] 105 mmol/L 98 - 10 7 mmol/L [facility] CO2 [Moles/Vol] 24 mmol/L 22 - 30 mmol/L [facility] Creatinine [Mass/Vol] 1.08 mg/dL 0.73 - 1.22 mg/dL [facility] GFR/1.73 sq M.predicted among non-blacks MDRD (S/P/Bld) [Vol rate/Area] 80 mL/min/{1.73_m2} - PINF [facility] Comment on above: Estimated Glomerular Filtration Rate (eGFR) is calculated using the 2020 CKD-EPI creatinine equation. This equation utilizes serum creatinine, sex, and age as parameters. The creatinine assay has traceable calibration to isotope dilution-mass spectrometry. Refer to KDIGO guidelines for clinical interpretation. In patients with unstable renal function, e.g. those with acute kidney injury, the eGFR may not accurately reflect actual GFR. Glucose [Mass/Vol] 154 mg/dL High 74 - 99 mg/dL [facility] Comment on above: The [place] Di[employer] s Association (ADA) provides guidance for cutoff values for fasting glucose and random glucose. The ADA defines fasting as no caloric intake for at least 8 hours. Fasting plasma glucose results between 100 to 125 mg/dL indicate increased risk for diabetes (prediabetes). Fasting plasma glucose results greater than or equal to 126 mg/dL meet the criteria for diagnosis of diabetes. In the absence of unequivocal hyperglycemia, results should be confirmed by repeat testing. In a patient with classic symptoms of hyperglycemia or hyperglycemic crisis, random plasma glucose results greater than or equal to 200 mg/dL meet the criteria for diagnosis of diabetes. Reference: Standards of Medical Care in Diabetes 2016, [place] [employer]. Diabetes Care. 2016.39(Suppl 1). Interpretation and review of laboratory results Abnormal [facility] Potassium [Moles/Vol] 4 mmol/L 3.7 - 5.1 mmol/L [facility] Sodium [Moles/Vol] 141 mmol/L 136 - 144 mmol/L [facility] Urea nitrogen [Mass/Vol] 27 mg/dL High 9 - 24 mg/dL [facility] Anion gap [Moles/Vol] 12 mmol/L Normal 8-15 [facility] Comment on above: Order Comment: Speci men Type: BLOOD SPECIMENOrdering Facility: [facility] Address: [address] [place] [address] Performed By: #### 2 4321-2 ####ALANIS LABORATORYCLIA [id number] [place] [address] [place] Calcium [Mass/Vol] 8.9 mg/dL Normal 8.5-10.2 [facility] Comment on above: Order Comment: Speci men Type: BLOOD SPECIMENOrdering Facility: [facility] Address: [address] [place] [address] Performed By: #### 2 4321-2 ####ALANIS LABORATORYCLIA [id number] [place] [address] [place] Chloride [Moles/Vol] 105 mmol/L Normal 98-107 [facility] Comment on above: Order Comment: Speci men Type: BLOOD SPECIMENOrdering Facility: [facility] Address: [address] [place] [address] Performed By: #### 2 4321-2 ####ALANIS LABORATORYCLIA [id number] [place] [address] [place] CO2 [Moles/Vol] 24 mmol/L Normal 22-30 [facility] Comment on above: Order Comment: Speci men Type: BLOOD SPECIMENOrdering Facility: [facility] Address: [address] [place] [address] Performed By: #### 2 4321-2 ####ALANIS LABORATORYCLIA [id number] [place] [address] [place] Creatinine [Mass/Vol] 1.08 mg/dL Normal 0.73-1.22 [facility] Comment on above: Order Comment: Speci men Type: BLOOD SPECIMENOrdering Facility: [facility] Address: [address] [place] [address] Performed By: #### 2 4321-2 ####ALANIS LABORATORYCLIA [id number] [place] [address] [place] [facility] [place] Creatinine and Glomerular filtration rate.predicted panel (S/P/Bld) 80 mL/min/1.73m??? Normal >=60 [facility] Comment on above: Order Comment: Speci men Type: BLOOD SPECIMENOrdering Facility: [facility] Address: [address] [place] [address] Result Comment: Bianca mated Glomerular Filtration Rate (eGFR) is calculated using the 2020 CKD-EPI creatinine equation. This equation utilizes serum creatinine, sex, and age as parameters. The creatinine assay has traceable calibration to isotope dilution-mass spectrometry. Refer to KDIGO guidelines for clinical interpretation. In patients with unstable renal function, e.g. those with acute kidney injury, the eGFR may not accurately reflect actual GFR. Performed By: #### 2 4321-2 ####ALANIS LABORATORYCLIA [id number] [place] [address] [place] Glucose [Mass/Vol] 154 mg/dL High 74-99 [facility] Comment on above: Order Comment: Jonas men Type: BLOOD SPECIMENOrdering Facility: [facility] Address: [address] [place] [address] Result Comment: The [place] Diabetes Association (ADA) provides guidance for cutoff values for fasting glucose and random glucose. The ADA defines fasting as no caloric intake for at least 8 hours. Fasting plasma glucose results between 100 to 125 mg/dL indicate increased risk for diabetes (prediabetes). Fasting plasma glucose results greater than or equal to 126 mg/dL meet the criteria for diagnosis of diabetes. In the absence of unequivocal hyperglycemia, results should be confirmed by repeat testing. In a patient with classic symptoms of hyperglycemia or hyperglycemic crisis, random plasma glucose results greater than or equal to 200 mg/dL meet the criteria for diagnosis of diabetes. Reference: Standards of Medical Care in Diabetes 2016, [place] [employer]. Diabetes Care. 2016.39(Suppl 1). Performed By: #### 2 4321-2 ####ALANIS LABORATORYCLIA [id number] [place] [id number] [place] Potassium [Moles/Vol] 4.0 mmol/L Normal 3.7-5.1 [facility] Comment on above: Order Comment: Jonas florez Type: BLOOD SPECIMENOrdering Facility: [facility] Address: [address] [place] [address] Performed By: #### 2 4321-2 ####ALANIS LABORATORYCLIA [id number] [place] [address] [place] Sodium [Moles/Vol] 141 mmol/L Normal 136-144 [facility] Comment on above: Order Comment: Awaisi men Type: BLOOD SPECIMENOrdering Facility: [facility] Address: [address] [place] [address] Performed By: #### 2 4321-2 ####ALANIS LABORATORYCLIA [id number] [address] Urea nitrogen [Mass/Vol] 27 mg/dL High 9-24 [facility] Comment on above: Order Comment: Speci men Type: BLOOD SPECIMENOrdering Facility: [facility] Address: [address] [place] [address] Performed By: #### 2 4321-2 ####ALANIS LABORATORYCLIA [id number] [address] CBC panel Auto (Bld)on 10-09 Erythrocyte distribution width (RBC) [Ratio] 12.4 % 11.5 - 15.0 % [facility] Hematocrit (Bld) [Volume fraction] 34.3 % Low 39.0 - 51.0 % [facility] Hemoglobin (Bld) [Mass/Vol] 12.3 g/dL Low 13.0 - 17.0 g/dL [facility] Interpretation and review of laboratory results Abnormal [facility] MCH (RBC) [Entitic mass] 30.8 pg 26.0 - 34.0 pg [facility] MCHC (RBC) [Mass/Vol] 35.9 g/dL 30.5 - 36.0 g/dL [facility] MCV (RBC) [Entitic vol] 86 fL 80.0 - 100.0 fL [facility] Nucleated RBC (Bld) [#/Vol] NINF [facility] Platelet mean volume (Bld) [Entitic vol] 10.2 fL 9.0 - 12.7 fL [facility] Platelets (Bld) [#/Vol] 291 10*3/uL [facility] RBC (Bld) [#/Vol] 3.99 10*6/uL Low 4.20 - 6.0 0 m/uL [facility] WBC (Bld) [#/Vol] 9.25 10*3/uL [facility] Erythrocyte distribution width (RBC) [Ratio] 12.4 % Normal 11.5-15.0 [facility] Comment on above: Order Comment: Speci men Type: BLOOD SPECIMEN [facility] Facility[facility] Address: [address] [place] [address] Performed By: #### 5 8410-2 #### [facility] CLIA [id number] [address] [place] Hematocrit (Bld) [Volume fraction] 34.3 % Low 39.0-51.0 [facility] Comment on above: Order Comment: Speci men Type: BLOOD SPECIMEN [facility]ing Facility: [facility] Address: [address] [place] [address] Performed By: #### 5 8410-2 #### [facility] CLIA [id number] [address] [place] [address] [place] Hemoglobin (Bld) [Mass/Vol] 12.3 g/dL Low 13.0-17.0 [facility] Comment on above: Order Comment: Speci men Type: BLOOD SPECIMEN [facility]ing Facility: [facility] Address: [address] [place] [address] Performed By: #### 5 8410-2 #### [facility] CLIA [id number] [address] [place] [address] [place] MCH (RBC) [Entitic mass] 30.8 pg Normal 26.0-34.0 [facility] Comment on above: Order Comment: Speci men Type: BLOOD SPECIMEN [facility]ing Facility: [facility] Address: [address] [place] [address] Performed By: #### 5 8410-2 #### [facility] CLIA [id number] [address] [place] [address] [place] MCHC (RBC) [Mass/Vol] 35.9 g/dL Normal 30.5-36.0 [facility] Comment on above: Order Comment: Speci men Type: BLOOD SPECIMEN [facility]ing Facility: [facility] Address: [address] [place] [address] Performed By: #### 5 8410-2 #### [facility] CLIA [id number] [address] [place] MCV (RBC) [Entitic vol] 86.0 fL Normal 80.0-100.0 [facility] Comment on above: Order Comment: Speci men Type: BLOOD SPECIMEN Ordering Facility: [facility] Address: [address] [place] [address] Performed By: #### 5 8410-2 #### [facility] CLIA [id number] [address] [place] [address] [place] Nucleated RBC (Bld) [#/Vol] 10*3/uL Normal <0.01 [facility] Comment on above: Order Comment: Speci men Type: BLOOD SPECIMEN Ordering Facility: [facility] Address: [address] [place] [address] Performed By: #### 5 8410-2 #### [facility] CLIA [id number] [address] [place] [address] [place] Platelet mean volume (Bld) [Entitic vol] 10.2 fL Normal 9.0-12.7 [facility] Comment on above: Order Comment: Speci men Type: BLOOD SPECIMEN Ordering Facility: [facility] Address: [address] [place] [address] Performed By: #### 5 8410-2 #### [facility] CLIA [id number] [address] [place] [address] [place] Platelets (Bld) [#/Vol] 291 10*3/uL Normal 150-400 [facility] Comment on above: Order Comment: Speci men Type: BLOOD SPECIMEN Ordering Facility: [facility] Address: [address] [place] [address] Performed By: #### 5 8410-2 #### [facility] CLIA [id number] [address] [place] [address] [place] RBC (Bld) [#/Vol] 3.99 10*6/uL Low 4.20-6.00 [facility] Comment on above: Order Comment: Speci men Type: BLOOD SPECIMEN Ordering Facility: [facility] Address: [address] [place] [address] Performed By: #### 5 8410-2 #### [facility] CLIA [id number] [address] [place] [address] [place] WBC (Bld) [#/Vol] 9.25 10*3/uL Normal 3.70-11.00 [facility] Comment on above: Order Comment: Speci men Type: BLOOD SPECIMEN Ordering Facility: [facility] Address: [address] [place] [address] Performed By: #### 5 8410-2 #### [facility] CLIA [id number] [address] [place] [address] [place] OXCARBAZEPINE BLDOrdered By: Evangelista Allen on 10-09-2024 10-Hydroxycarbazepine [Mass/Vol] 3.2 ug/mL 3.0 - 35.0 ug/mL [facility] Comment on above: This test was develo ped, and its performance characteristics determined by the [facility] Department of Pathology and Laboratory Medicine. It has not been cleared or approved by the FDA. The [facility] Department of Pathology and Laboratory Medicine is regulated under CLIA as qualified to perform high-complexity testing. This test is used for clinical purposes. It should not be regarded as investigational or for research. 10OH-Carbazepine SerPl-mCnco n 10-07-2024 10-Hydroxycarbazepine [Mass/Vol] 3.2 ug/mL Normal 3.0-35.0 [facility] Comment on above: Order Comment: Jonas florez Type: BLOOD SPECIMENOrdering Facility: [facility] Address: [address] [place] [address] Result Comment: This test was developed, and its performance characteristics determined by the [facility] Department of Pathology and Laboratory Medicine. It has not been cleared or approved by the FDA. The [facility] Department of Pathology and Laboratory Medicine is regulated under CLIA as qualified to perform high-complexity testing. This test is used for clinical purposes. It should not be regarded as investigational or for research. Performed By: #### 3 1019-3 ####[facility] [id number] [place] [address] [place] Basic metabolic 2000 panelon 10-07-2024 Anion gap [Moles/Vol] 9 mmol/L 8 - 15 mmol/L [facility] Calcium [Mass/Vol] 9.1 mg/dL 8.5 - 10. 2 mg/dL [facility] Chloride [Moles/Vol] 105 mmol/L 98 - 10 7 mmol/L [facility] CO2 [Moles/Vol] 26 mmol/L 22 - 30 mmol/L [facility] Creatinine [Mass/Vol] 1.07 mg/dL 0.73 - 1.22 mg/dL [facility] GFR/1.73 sq M.predicted among non-blacks MDRD (S/P/Bld) [Vol rate/Area] 80 mL/min/{1.73_m2} - PINF [facility] Comment on above: Estimated Glomerular Filtration Rate (eGFR) is calculated using the 2020 CKD-EPI creatinine equation. This equation utilizes serum creatinine, sex, and age as parameters. The creatinine assay has traceable calibration to isotope dilution-mass spectrometry. Refer to KDIGO guidelines for clinical interpretation. In patients with unstable renal function, e.g. those with acute kidney injury, the eGFR may not accurately reflect actual GFR. Glucose [Mass/Vol] 182 mg/dL High 74 - 99 mg/dL [facility] Comment on above: The [place] Diab[employer] s Association (ADA) provides guidance for cutoff values for fasting glucose and random glucose. The ADA defines fasting as no caloric intake for at least 8 hours. Fasting plasma glucose results between 100 to 125 mg/dL indicate increased risk for diabetes (prediabetes). Fasting plasma glucose results greater than or equal to 126 mg/dL meet the criteria for diagnosis of diabetes. In the absence of unequivocal hyperglycemia, results should be confirmed by repeat testing. In a patient with classic symptoms of hyperglycemia or hyperglycemic crisis, random plasma glucose results greater than or equal to 200 mg/dL meet the criteria for diagnosis of diabetes. Reference: Standards of Medical Care in Diabetes 2016, [place] [employer]. Diabetes Care. 2016.39(Suppl 1). Interpretation and review of laboratory results Abnormal [facility] Potassium [Moles/Vol] 4.1 mmol/L 3.7 - 5.1 mmol/L [facility] Sodium [Moles/Vol] 140 mmol/L 136 - 144 mmol/L [facility] Urea nitrogen [Mass/Vol] 17 mg/dL 9 - 24 mg/dL [facility] Anion gap [Moles/Vol] 9 mmol/L Normal 8-15 [facility] Comment on above: Order Comment: Speci men Type: BLOOD SPECIMENOrdering Facility: [facility] Address: [address] [place] [address] Performed By: #### 2 4321-2 ####[facility] [id number] [place] [address] [place] Calcium [Mass/Vol] 9.1 mg/dL Normal 8.5-10.2 [facility] Comment on above: Order Comment: Speci men Type: BLOOD SPECIMENOrdering Facility: [facility] Address: [address] [place] [address] Performed By: #### 2 4321-2 ####[facility] [id number] [place] [address] [place] Chloride [Moles/Vol] 105 mmol/L Normal 98-107 [facility] Comment on above: Order Comment: Speci men Type: BLOOD SPECIMENOrdering Facility: [facility] Address: [address] [place] [address] Performed By: #### 2 4321-2 ####[facility] [id number] [place] [address] [place] CO2 [Moles/Vol] 26 mmol/L Normal 22-30 [facility] Comment on above: Order Comment: Speci men Type: BLOOD SPECIMENOrdering Facility: [facility] Address: [address] [place] [address] Performed By: #### 2 4321-2 ####[facility] [id number] [place] [address] [place] Creatinine [Mass/Vol] 1.07 mg/dL Normal 0.73-1.22 [facility] Comment on above: Order Comment: Speci men Type: BLOOD SPECIMENOrdering Facility: [facility] Address: [address] [place] [address] Performed By: #### 2 4321-2 ####[facility]ORY[facility] [id number] [place] [address] [place] Creatinine and Glomerular filtration rate.predicted panel (S/P/Bld) 80 mL/min/1.73m??? Normal >=60 [facility] Comment on above: Order Comment: Jonas florez Type: BLOOD SPECIMENOrdering Facility: [facility] Address: [address] [place] [address] Result Comment: Bianca mated Glomerular Filtration Rate (eGFR) is calculated using the 2020 CKD-EPI creatinine equation. This equation utilizes serum creatinine, sex, and age as parameters. The creatinine assay has traceable calibration to isotope dilution-mass spectrometry. Refer to KDIGO guidelines for clinical interpretation. In patients with unstable renal function, e.g. those with acute kidney injury, the eGFR may not accurately reflect actual GFR. Performed By: #### 2 4321-2 ####[facility] [id number] [place] [address] [place] Glucose [Mass/Vol] 182 mg/dL High 74-99 [facility] Comment on above: Order Comment: Jonsa florez Type: BLOOD SPECIMENOrdering Facility: [facility] Address: [address] [place] [address] Result Comment: The [place] Diabetes Association (ADA) provides guidance for cutoff values for fasting glucose and random glucose. The ADA defines fasting as no caloric intake for at least 8 hours. Fasting plasma glucose results between 100 to 125 mg/dL indicate increased risk for diabetes (prediabetes). Fasting plasma glucose results greater than or equal to 126 mg/dL meet the criteria for diagnosis of diabetes. In the absence of unequivocal hyperglycemia, results should be confirmed by repeat testing. In a patient with classic symptoms of hyperglycemia or hyperglycemic crisis, random plasma glucose results greater than or equal to 200 mg/dL meet the criteria for diagnosis of diabetes. Reference: Standards of Medical Care in Diabetes 2016, [place] [employer]. Diabetes Care. 2016.39(Suppl 1). Performed By: #### 2 4321-2 ####[facility]ORY[facility] [id number] [place] [id number] [place] Potassium [Moles/Vol] 4.1 mmol/L Normal 3.7-5.1 [facility] Comment on above: Order Comment: Jonas florez Type: BLOOD SPECIMENOrdering Facility: [facility] Address: [address] [place] [address] Performed By: #### 2 4321-2 ####[facility] [id number] [address] Sodium [Moles/Vol] 140 mmol/L Normal 136-144 [facility] Comment on above: Order Comment: Speci men Type: BLOOD SPECIMENOrdering Facility: [facility] Address: [address] [place] [address] Performed By: #### 2 4321-2 ####[facility] [id number] [address] Urea nitrogen [Mass/Vol] 17 mg/dL Normal 9-24 [facility] Comment on above: Order Comment: Speci men Type: BLOOD SPECIMENOrdering Facility: [facility] Address: [address] [place] [address] Performed By: #### 2 4321-2 ####[facility] [id number] [address] STATES OF [facility] CBC W Auto Differential pane l (Bld)on 10-07-2024 Basophils (Bld) [#/Vol] 0.07 10*3/uL [facility] Basophils/100 WBC (Bld) 0.6 % [facility] Differential cell count method Nom (Bld) Auto [facility] Eosinophils (Bld) [#/Vol] 0.25 10*3/uL [facility] Eosinophils/100 WBC (Bld) 2.2 % [facility] Erythrocyte distribution width (RBC) [Ratio] 12.8 % 11.5 - 15.0 % [facility] Hematocrit (Bld) [Volume fraction] 37 % Low 39.0 - 51.0 % [facility] Hemoglobin (Bld) [Mass/Vol] 13.1 g/dL 13.0 - 17.0 g/dL [facility] Immature granulocytes (Bld) [#/Vol] 0.07 10*3/uL [facility] Immature granulocytes/100 WBC (Bld) 0.6 % [facility] Interpretation and review of laboratory results Abnormal [facility] Lymphocytes (Bld) [#/Vol] 2.44 10*3/uL [facility] Lymphocytes/100 WBC (Bld) 21.8 % [facility] MCH (RBC) [Entitic mass] 30.6 pg 26.0 - 34.0 pg [facility] MCHC (RBC) [Mass/Vol] 35.4 g/dL 30.5 - 36.0 g/dL [facility] MCV (RBC) [Entitic vol] 86.4 fL 80.0 - 100.0 fL [facility] Monocytes (Bld) [#/Vol] 0.77 10*3/uL NINF [facility] Monocytes/100 WBC (Bld) 6.9 % [facility] Neutrophils (Bld) [#/Vol] 7.61 10*3/uL High [facility] Neutrophils/100 WBC (Bld) 67.9 % [facility] Nucleated RBC (Bld) [#/Vol] NINF [facility] Nucleated RBC/100 WBC (Bld) [Ratio] 0 % /100 WBC [facility] Platelet mean volume (Bld) [Entitic vol] 10.7 fL 9.0 - 12.7 fL [facility] Platelets (Bld) [#/Vol] 276 10*3/uL [facility] RBC (Bld) [#/Vol] 4.28 10*6/uL 4.20 - 6.0 0 m/uL [facility] WBC (Bld) [#/Vol] 11.21 10*3/uL High [facility] Basophils (Bld) [#/Vol] 0.07 10*3/uL Normal <0.11 [facility] Comment on above: Order Comment: Speci men Type: BLOOD SPECIMENOrdering Facility: [facility] Address: [address] [place] [address] Performed By: #### 5 7021-8 ####[facility]ORY[facility] [id number] [address] Basophils/100 WBC (Bld) 0.6 % Normal [facility] Comment on above: Order Comment: Speci men Type: BLOOD SPECIMENOrdering Facility: [facility] Address: [address] [place] [address] Performed By: #### 5 7021-8 ####[facility] [id number] [address] Differential cell count method Nom (Bld) Auto Normal [facility] Comment on above: Order Comment: Speci men Type: BLOOD SPECIMENOrdering Facility: [facility] Address: [address] [place] [address] Performed By: #### 5 7021-8 ####[facility] [id number] [place] [address] [place] Eosinophils (Bld) [#/Vol] 0.25 10*3/uL Normal <0.46 [facility] Comment on above: Order Comment: Speci men Type: BLOOD SPECIMENOrdering Facility: [facility] Address: [address] [place] [address] Performed By: #### 5 7021-8 ####[facility] [id number] [address] Eosinophils/100 WBC (Bld) 2.2 % Normal [facility] Comment on above: Order Comment: Speci men Type: BLOOD SPECIMENOrdering Facility: [facility] Address: [address] [place] [address] Performed By: #### 5 7021-8 ####[facility] [id number] [place] [address] [place] [facility] Erythrocyte distribution width (RBC) [Ratio] 12.8 % Normal 11.5-15.0 [facility] Comment on above: Order Comment: Speci men Type: BLOOD SPECIMENOrdering Facility: [facility] Address: [address] [place] [address] Performed By: #### 5 7021-8 ####[facility]CL[facility] [id number] [address] [place] Hematocrit (Bld) [Volume fraction] 37.0 % Low 39.0-51.0 [facility] Comment on above: Order Comment: Speci men Type: BLOOD SPECIMENOrdering Facility: [facility] Address: [address] [place] [address] Performed By: #### 5 7021-8 ####[facility]ORYCL[facility] [id number] [place] [address] [place] Hemoglobin (Bld) [Mass/Vol] 13.1 g/dL Normal 13.0-17.0 [facility] Comment on above: Order Comment: Speci men Type: BLOOD SPECIMENOrdering Facility: [facility] Address: [address] [place] [address] Performed By: #### 5 7021-8 ####[facility]ORYCLIA [id number] [place] [address] [place] Immature granulocytes (Bld) [#/Vol] 0.07 10*3/uL Normal <0.10 [facility] Comment on above: Order Comment: Speci men Type: BLOOD SPECIMENOrdering Facility: [facility] Address: [address] [place] [address] Performed By: #### 5 7021-8 ####[facility] [id number] [address] [place] Immature granulocytes/100 WBC (Bld) 0.6 % Normal [facility] Comment on above: Order Comment: Speci men Type: BLOOD SPECIMENOrdering Facility: [facility] Address: [address] [place] [address] Performed By: #### 5 7021-8 ####[facility]ORYCLIA [id number] [place] [address] [place] Lymphocytes (Bld) [#/Vol] 2.44 10*3/uL Normal 1.00-4.00 [facility] Comment on above: Order Comment: Speci men Type: BLOOD SPECIMENOrdering Facility: [facility] Address: [address] [place] [address] Performed By: #### 5 7021-8 ####[facility]CL[facility] [id number] [address] OF [place] Lymphocytes/100 WBC (Bld) 21.8 % Normal [facility] Comment on above: Order Comment: Speci men Type: BLOOD SPECIMENOrdering Facility: [facility] Address: [address] [place] [address] Performed By: #### 5 7021-8 ####[facility]ORYCL[facility] [id number] [address] MCH (RBC) [Entitic mass] 30.6 pg Normal 26.0-34.0 [facility] Comment on above: Order Comment: Speci men Type: BLOOD SPECIMENOrdering Facility: [facility] Address: [address] [place] [address] Performed By: #### 5 7021-8 ####[facility]ORYCLIA [id number] [place] [address] [place] MCHC (RBC) [Mass/Vol] 35.4 g/dL Normal 30.5-36.0 [facility] Comment on above: Order Comment: Speci men Type: BLOOD SPECIMENOrdering Facility: [facility] Address: [address] [place] [address] Performed By: #### 5 7021-8 ####[facility]ORYCL[facility] [id number] [address] STATES [facility] MCV (RBC) [Entitic vol] 86.4 fL Normal 80.0-100.0 [facility] Comment on above: Order Comment: Speci men Type: BLOOD SPECIMENOrdering Facility: [facility] Address: [address] [place] [address] Performed By: #### 5 7021-8 ####[facility]ORYCLIA [id number] [place] [address] [place] Monocytes (Bld) [#/Vol] 0.77 10*3/uL Normal <0.87 [facility] Comment on above: Order Comment: Speci men Type: BLOOD SPECIMENOrdering Facility: [facility] Address: [address] [place] [address] Performed By: #### 5 7021-8 ####[facility]ORYCLIA [id number] [address] Monocytes/100 WBC (Bld) 6.9 % Normal [facility] Comment on above: Order Comment: Speci men Type: BLOOD SPECIMENOrdering Facility: [facility] Address: [address] [place] [address] Performed By: #### 5 7021-8 ####[facility]ORYCLIA [id number] [place] [address] [place] Neutrophils (Bld) [#/Vol] 7.61 10*3/uL High 1.45-7.50 [facility] Comment on above: Order Comment: Speci men Type: BLOOD SPECIMENOrdering Facility: [facility] Address: [address] [place] [address] Performed By: #### 5 7021-8 ####[facility]ORYCLIA [id number] [address] [place] Neutrophils/100 WBC (Bld) 67.9 % Normal [facility] Comment on above: Order Comment: Speci men Type: BLOOD SPECIMENOrdering Facility: [facility] Address: [address] [place] [address] Performed By: #### 5 7021-8 ####[facility]ORYCLIA [id number] [place] [address] [place] Nucleated RBC (Bld) [#/Vol] 10*3/uL Normal <0.01 [facility] Comment on above: Order Comment: Speci men Type: BLOOD SPECIMENOrdering Facility: [facility] Address: [address] [place] [address] Performed By: #### 5 7021-8 ####[facility]ORYCLIA [id number] [place] [address] [place] Nucleated RBC/100 WBC (Bld) [Ratio] 0.0 /100 WBC Normal [facility] Comment on above: Order Comment: Speci men Type: BLOOD SPECIMENOrdering Facility: [facility] Address: [address] [place] [address] Performed By: #### 5 7021-8 ####[facility]ORYCLIA [id number] [place] [address] [place] Platelet mean volume (Bld) [Entitic vol] 10.7 fL Normal 9.0-12.7 [facility] Comment on above: Order Comment: Speci men Type: BLOOD SPECIMENOrdering Facility: [facility] Address: [address] [place] [address] Performed By: #### 5 7021-8 ####[facility]ORATORYCLIA [id number] [place] [address] [place] Platelets (Bld) [#/Vol] 276 10*3/uL Normal 150-400 [facility] Comment on above: Order Comment: Speci men Type: BLOOD SPECIMENOrdering Facility: [facility] Address: [address] [place] [address] Performed By: #### 5 7021-8 ####[facility]ATORYCLIA [id number] [place] [address] [place] RBC (Bld) [#/Vol] 4.28 10*6/uL Normal 4.20-6.00 [facility] Comment on above: Order Comment: Speci men Type: BLOOD SPECIMENOrdering Facility: [facility] Address: [address] [place] [address] Performed By: #### 5 7021-8 ####[facility]ATORYCLIA [id number] [place] [id number] [place] WBC (Bld) [#/Vol] 11.21 10*3/uL High 3.70-11.00 [facility] Comment on above: Order Comment: Speci men Type: BLOOD SPECIMENOrdering Facility: [facility] Address: [address] [place] [address] Performed By: #### 5 7021-8 ####[facility]ORATORYCLIA [id number] [place] [id number] [facility] [place] 36on 10-02-2024 36 Recent Visits Date Type Provider Dept 05/02/24 Office Visit Nena Pardo DO [facility] 03/29/24 Office Visit Nena Pardo DO [facility] Showing recent visits within past 365 days and meeting all other requirements Future Appointments Date Type Provider Dept 10/07/24 Appointment Nena Pardo DO [facility] Showing future appointments within next 90 days and meeting all other requirements Requested Prescriptions Pending Prescriptions Disp Refills atorvastatin (Lipitor) 20 MG tablet [Pharmacy Med Name: ATORVASTATIN 20 MG TABLET] 90 tablet 3 Sig: TAKE 1 TABLET BY MOUTH EVERY DAY gabapentin (Neurontin) 300 MG capsule [Pharmacy Med Name: GABAPENTIN 300 MG CAPSULE] 90 capsule 5 Sig: TAKE 1 CAPSULE BY MOUTH THREE TIMES A DAY Provider: Nena Pardo DO Verified pharmacy: yes Verified day(s) supplied: yes Verified refill(s) needed (previous prescription showing no refills in chart): Yes Have you received any controlled medications from any other provider? No Overdue for visit: No If yes - patient scheduled? Yes Most recent labs completed in chart? Yes Cholesterol: Lab Results Component Value Date CHOLESTEROLT 169 03/29/2024 HDLCHOLESTER 34 (L) 03/29/2024 TRIGLYCERIDE 237 (H) 03/29/2024 LDLCHOLESTER 99 03/29/2024 CHOLHDLCRATI 5.0 (H) 03/29/2024 NONHDLCHOLES 135 (H) 03/29/2024 Normal [facility] Basic metabolic 2000 panelon 09-30-2024 Anion gap [Moles/Vol] 13 mmol/L 8 - 15 mmol/L [facility] Calcium [Mass/Vol] 9.1 mg/dL 8.5 - 10. 2 mg/dL [facility] Chloride [Moles/Vol] 106 mmol/L 98 - 10 7 mmol/L [facility] CO2 [Moles/Vol] 22 mmol/L 22 - 30 mmol/L [facility] Creatinine [Mass/Vol] 0.88 mg/dL 0.73 - 1.22 mg/dL [facility] GFR/1.73 sq M.predicted among non-blacks MDRD (S/P/Bld) [Vol rate/Area] 100 mL/min/{1.73_m2} - PINF [facility] Comment on above: Estimated Glomerular Filtration Rate (eGFR) is calculated using the 202 CKD-EPI creatinine equation. This equation utilizes serum creatinine, sex, and age as parameters. The creatinine assay has traceable calibration to isotope dilution-mass spectrometry. Refer to KDIGO guidelines for clinical interpretation. In patients with unstable renal function, e.g. those with acute kidney injury, the eGFR may not accurately reflect actual GFR. Glucose [Mass/Vol] 139 mg/dL High 74 - 99 mg/dL [facility] Comment on above: The [place] Di[employer] (ADA) provides guidance for cutoff values for fasting glucose and random glucose. The ADA defines fasting as no caloric intake for at least 8 hours. Fasting plasma glucose results between 100 to 125 mg/dL indicate increased risk for diabetes (prediabetes). Fasting plasma glucose results greater than or equal to 126 mg/dL meet the criteria for diagnosis of diabetes. In the absence of unequivocal hyperglycemia, results should be confirmed by repeat testing. In a patient with classic symptoms of hyperglycemia or hyperglycemic crisis, random plasma glucose results greater than or equal to 200 mg/dL meet the criteria for diagnosis of diabetes. Reference: Standards of Medical Care in Diabetes 2016, [place] [employer]. Diabetes Care. 2016.39(Suppl 1). Interpretation and review of laboratory results Abnormal [facility] Potassium [Moles/Vol] 3.8 mmol/L 3.7 - 5.1 mmol/L [facility] Sodium [Moles/Vol] 141 mmol/L 136 - 144 mmol/L [facility] Urea nitrogen [Mass/Vol] 18 mg/dL 9 - 24 mg/dL [facility] Anion gap [Moles/Vol] 13 mmol/L Normal 8-15 [facility] Comment on above: Order Comment: Speci men Type: BLOOD SPECIMENOrdering Facility: [facility] Address: [address] [place] [address] Performed By: #### 2 4321-2 ####ALANIS LABORATORYCLIA [id number] [place] [address] [place] Calcium [Mass/Vol] 9.1 mg/dL Normal 8.5-10.2 [facility] Comment on above: Order Comment: Speci men Type: BLOOD SPECIMENOrdering Facility: [facility] Address: [address] [place] [address] Performed By: #### 2 4321-2 ####ALANIS LABORATORYCLIA [id number] [place] [address] [place] Chloride [Moles/Vol] 106 mmol/L Normal 98-107 [facility] Comment on above: Order Comment: Speci men Type: BLOOD SPECIMENOrdering Facility: [facility] Address: [address] [place] [address] Performed By: #### 2 4321-2 ####ALANIS LABORATORYCLIA [id number] [place] [address] [place] CO2 [Moles/Vol] 22 mmol/L Normal 22-30 [facility] Comment on above: Order Comment: Speci men Type: BLOOD SPECIMENOrdering Facility: [facility] Address: [address] [place] [address] Performed By: #### 2 4321-2 ####ALANIS LABORATORYCLIA [id number] [place] [address] [place] Creatinine [Mass/Vol] 0.88 mg/dL Normal 0.73-1.22 [facility] Comment on above: Order Comment: Speci men Type: BLOOD SPECIMENOrdering Facility: [facility] Address: [address] [place] [address] Performed By: #### 2 4321-2 ####ALANIS LABORATORYCLIA [id number] [address] Creatinine and Glomerular filtration rate.predicted panel (S/P/Bld) 100 mL/min/1.73m??? Normal >=60 [facility] Comment on above: Order Comment: Speci men Type: BLOOD SPECIMENOrdering Facility: [facility] Address: [address] [place] [address] Result Comment: Bianca mated Glomerular Filtration Rate (eGFR) is calculated using the 2020 CKD-EPI creatinine equation. This equation utilizes serum creatinine, sex, and age as parameters. The creatinine assay has traceable calibration to isotope dilution-mass spectrometry. Refer to KDIGO guidelines for clinical interpretation. In patients with unstable renal function, e.g. those with acute kidney injury, the eGFR may not accurately reflect actual GFR. Performed By: #### 2 4321-2 ####ALANIS LABORATORYCLIA [id number] [address] [place] Glucose [Mass/Vol] 139 mg/dL High 74-99 [facility] Comment on above: Order Comment: Speci men Type: BLOOD SPECIMENOrdering Facility: [facility] Address: [address] [place] [address] Result Comment: The [place] Diabetes Association (ADA) provides guidance for cutoff values for fasting glucose and random glucose. The ADA defines fasting as no caloric intake for at least 8 hours. Fasting plasma glucose results between 100 to 125 mg/dL indicate increased risk for diabetes (prediabetes). Fasting plasma glucose results greater than or equal to 126 mg/dL meet the criteria for diagnosis of diabetes. In the absence of unequivocal hyperglycemia, results should be confirmed by repeat testing. In a patient with classic symptoms of hyperglycemia or hyperglycemic crisis, random plasma glucose results greater than or equal to 200 mg/dL meet the criteria for diagnosis of diabetes. Reference: Standards of Medical Care in Diabetes 2016, [place] [employer]. Diabetes Care. 2016.39(Suppl 1). Performed By: #### 2 4321-2 ####ALANIS LABORATORYCLIA [id number] [place] [address] [place] Potassium [Moles/Vol] 3.8 mmol/L Normal 3.7-5.1 [facility] Comment on above: Order Comment: Speci men Type: BLOOD SPECIMENOrdering Facility: [facility] Address: [address] [place] [address] Performed By: #### 2 1-2 ####ALANIS LABORATORYCLIA [id number] [place] [address] [place] Sodium [Moles/Vol] 141 mmol/L Normal 136-144 [facility] Comment on above: Order Comment: Speci men Type: BLOOD SPECIMENOrdering Facility: [facility] Address: [address] [place] [address] Performed By: #### 2 1-2 ####ALANIS LABORATORYCLIA [id number] [place] [address] [place] Urea nitrogen [Mass/Vol] 18 mg/dL Normal 9-24 [facility] Comment on above: Order Comment: Speci men Type: BLOOD SPECIMENOrdering Facility: [facility] Address: [address] [place] [address] Performed By: #### 2 1-2 ####ALANIS LABORATORYIA [id number] [place] [address] [place] CBC W Auto Differential pane l (Bld)on 09-30-2024 Basophils (Bld) [#/Vol] 0.04 10*3/uL [facility] Basophils/100 WBC (Bld) 0.6 % [facility] Differential cell count method Nom (Bld) Auto [facility] Eosinophils (Bld) [#/Vol] 0.16 10*3/uL [facility] Eosinophils/100 WBC (Bld) 2.4 % [facility] Erythrocyte distribution width (RBC) [Ratio] 12.4 % 11.5 - 15.0 % [facility] Hematocrit (Bld) [Volume fraction] 38.8 % Low 39.0 - 51.0 % [facility] Hemoglobin (Bld) [Mass/Vol] 13.7 g/dL 13.0 - 17.0 g/dL [facility] Immature granulocytes (Bld) [#/Vol] [facility] Immature granulocytes/100 WBC (Bld) 0.3 % [facility] Interpretation and review of laboratory results Abnormal [facility] Lymphocytes (Bld) [#/Vol] 2.27 10*3/uL [facility] Lymphocytes/100 WBC (Bld) 33.7 % [facility] MCH (RBC) [Entitic mass] 30.5 pg 26.0 - 34.0 pg [facility] MCHC (RBC) [Mass/Vol] 35.3 g/dL 30.5 - 36.0 g/dL [facility] MCV (RBC) [Entitic vol] 86.4 fL 80.0 - 100.0 fL [facility] Monocytes (Bld) [#/Vol] 0.54 10*3/uL [facility] Monocytes/100 WBC (Bld) 8 % [facility] Neutrophils (Bld) [#/Vol] 3.71 10*3/uL [facility] Neutrophils/100 WBC (Bld) 55 % [facility] Nucleated RBC (Bld) [#/Vol] [facility] Nucleated RBC/100 WBC (Bld) [Ratio] 0 % /100 WBC [facility] Platelet mean volume (Bld) [Entitic vol] 10.8 fL 9.0 - 12.7 fL [facility] Platelets (Bld) [#/Vol] 216 10*3/uL [facility] RBC (Bld) [#/Vol] 4.49 10*6/uL 4.20 - 6.0 0 m/uL [facility] WBC (Bld) [#/Vol] 6.74 10*3/uL [facility] Basophils (Bld) [#/Vol] 0.04 10*3/uL Normal <0.11 [facility] Comment on above: Order Comment: Speci men Type: BLOOD SPECIMENOrdering Facility: [facility] Address: [address] [place] [address] Performed By: #### 5 7021-8 ####ALANIS LABORATORYCLIA [id number] [address] [place] Basophils/100 WBC (Bld) 0.6 % Normal [facility] Comment on above: Order Comment: Speci men Type: BLOOD SPECIMENOrdering Facility: [facility] Address: [address] [place] [address] Performed By: #### 5 7021-8 ####ALANIS LABORATORYCLIA [id number] [place] [address] [place] Differential cell count method Nom (Bld) Auto Normal [facility] Comment on above: Order Comment: Speci men Type: BLOOD SPECIMENOrdering Facility: [facility] Address: [address] [place] [address] Performed By: #### 5 7021-8 ####ALANIS LABORATORYCLIA [id number] [place] [address] [place] Eosinophils (Bld) [#/Vol] 0.16 10*3/uL Normal <0.46 [facility] Comment on above: Order Comment: Speci men Type: BLOOD SPECIMENOrdering Facility: [facility] Address: [address] [place] [address] Performed By: #### 5 7021-8 ####ALANIS LABORATORYCLIA [id number] [place] [address] [place] Eosinophils/100 WBC (Bld) 2.4 % Normal [facility] Comment on above: Order Comment: Speci men Type: BLOOD SPECIMENOrdering Facility: [facility] Address: [address] [place] [address] Performed By: #### 5 7021-8 ####ALANIS LABORATORYCLIA [id number] [place] [address] [place] Erythrocyte distribution width (RBC) [Ratio] 12.4 % Normal 11.5-15.0 [facility] Comment on above: Order Comment: Speci men Type: BLOOD SPECIMENOrdering Facility: [facility] Address: [address] [place] [address] Performed By: #### 5 7021-8 ####ALANIS LABORATORYCLIA [id number] [place] [address] [place] Hematocrit (Bld) [Volume fraction] 38.8 % Low 39.0-51.0 [facility] Comment on above: Order Comment: Speci men Type: BLOOD SPECIMENOrdering Facility: [facility] Address: [address] [place] [address] Performed By: #### 5 7021-8 ####ALANIS LABORATORYCLIA [id number] [place] [address] [place] Hemoglobin (Bld) [Mass/Vol] 13.7 g/dL Normal 13.0-17.0 [facility] Comment on above: Order Comment: Speci men Type: BLOOD SPECIMENOrdering Facility: [facility] Address: [address] [place] [address] Performed By: #### 5 7021-8 ####ALANIS LABORATORYCLIA [id number] [place] [address] [place] Immature granulocytes (Bld) [#/Vol] 10*3/uL Normal <0.10 [facility] Comment on above: Order Comment: Speci men Type: BLOOD SPECIMENOrdering Facility: [facility] Address: [address] [place] [address] Performed By: #### 5 7021-8 ####ALANIS LABORATORYCLIA [id number] [place] [address] [place] Immature granulocytes/100 WBC (Bld) 0.3 % Normal [facility] Comment on above: Order Comment: Speci men Type: BLOOD SPECIMENOrdering Facility: [facility] Address: [address] [place] [address] Performed By: #### 5 7021-8 ####ALANIS LABORATORYCLIA [id number] [place] [address] [place] Lymphocytes (Bld) [#/Vol] 2.27 10*3/uL Normal 1.00-4.00 [facility] Comment on above: Order Comment: Speci men Type: BLOOD SPECIMENOrdering Facility: [facility] Address: [address] [place] [address] Performed By: #### 5 7021-8 ####ALANIS LABORATORYCLIA [id number] [address] [place] Lymphocytes/100 WBC (Bld) 33.7 % Normal [facility] Comment on above: Order Comment: Speci men Type: BLOOD SPECIMENOrdering Facility: [facility] Address: [address] [place] [address] Performed By: #### 5 7021-8 ####ALANIS LABORATORYCLIA [id number] [place] [address] [place] MCH (RBC) [Entitic mass] 30.5 pg Normal 26.0-34.0 [facility] Comment on above: Order Comment: Speci men Type: BLOOD SPECIMENOrdering Facility: [facility] Address: [address] [place] [address] Performed By: #### 5 7021-8 ####ALANIS LABORATORYCLIA [id number] [place] [id number] [place] MCHC (RBC) [Mass/Vol] 35.3 g/dL Normal 30.5-36.0 [facility] Comment on above: Order Comment: Speci men Type: BLOOD SPECIMENOrdering Facility: [facility] Address: [address] [place] [address] Performed By: #### 5 7021-8 ####ALANIS LABORATORYCLIA [id number] [place] [address] [place] MCV (RBC) [Entitic vol] 86.4 fL Normal 80.0-100.0 [facility] Comment on above: Order Comment: Speci men Type: BLOOD SPECIMENOrdering Facility: [facility] Address: [address] [place] [address] Performed By: #### 5 7021-8 ####ALANIS LABORATORYCLIA [id number] [place] [address] [place] Monocytes (Bld) [#/Vol] 0.54 10*3/uL Normal <0.87 [facility] Comment on above: Order Comment: Speci men Type: BLOOD SPECIMENOrdering Facility: [facility] Address: [address] [place] [address] Performed By: #### 5 7021-8 ####ALANIS LABORATORYCLIA [id number] [address] [place] Monocytes/100 WBC (Bld) 8.0 % Normal [facility] Comment on above: Order Comment: Speci men Type: BLOOD SPECIMENOrdering Facility: [facility] Address: [address] [place] [address] Performed By: #### 5 7021-8 ####ALANIS LABORATORYCLIA [id number] [place] [address] [place] Neutrophils (Bld) [#/Vol] 3.71 10*3/uL Normal 1.45-7.50 [facility] Comment on above: Order Comment: Speci men Type: BLOOD SPECIMENOrdering Facility: [facility] Address: [address] [place] [address] Performed By: #### 5 7021-8 ####ALANIS LABORATORYCLIA [id number] [place] [address] [place] Neutrophils/100 WBC (Bld) 55.0 % Normal [facility] Comment on above: Order Comment: Speci men Type: BLOOD SPECIMENOrdering Facility: [facility] Address: [address] [place] [address] Performed By: #### 5 7021-8 ####ALANIS LABORATORYCLIA [id number] [place] [address] [place] Nucleated RBC (Bld) [#/Vol] 10*3/uL Normal <0.01 [facility] Comment on above: Order Comment: Speci men Type: BLOOD SPECIMENOrdering Facility: [facility] Address: [address] [place] [address] Performed By: #### 5 7021-8 ####ALANIS LABORATORYCLIA [id number] [place] [id number] [place] Nucleated RBC/100 WBC (Bld) [Ratio] 0.0 /100 WBC Normal [facility] Comment on above: Order Comment: Speci men Type: BLOOD SPECIMENOrdering Facility: [facility] Address: [address] [place] [address] Performed By: #### 5 7021-8 ####ALANIS LABORATORYCLIA [id number] [place] [address] [place] Platelet mean volume (Bld) [Entitic vol] 10.8 fL Normal 9.0-12.7 [facility] Comment on above: Order Comment: Speci men Type: BLOOD SPECIMENOrdering Facility: [facility] Address: [address] [place] [address] Performed By: #### 5 7021-8 ####ALANIS LABORATORYCLIA [id number] [place] [address] [place] Platelets (Bld) [#/Vol] 216 10*3/uL Normal 150-400 [facility] Comment on above: Order Comment: Speci men Type: BLOOD SPECIMENOrdering Facility: [facility] Address: [address] [place] [address] Performed By: #### 5 7021-8 ####ALANIS LABORATORYCLIA [id number] [place] [address] [place] RBC (Bld) [#/Vol] 4.49 10*6/uL Normal 4.20-6.00 [facility] Comment on above: Order Comment: Speci men Type: BLOOD SPECIMENOrdering Facility: [facility] Address: [address] [place] [address] Performed By: #### 5 7021-8 ####ALANIS LABORATORYCLIA [id number] [address] WBC (Bld) [#/Vol] 6.74 10*3/uL Normal 3.70-11.00 [facility] Comment on above: Order Comment: Speci men Type: BLOOD SPECIMENOrdering Facility: [facility] Address: [address] [place] [address] Performed By: #### 5 7021-8 ####[facility] LABORATORYCLIA [id number] [address] CBC panel Auto (Bld)on 09-29 Erythrocyte distribution width (RBC) [Ratio] 12.5 % Normal 11.5-15.0 [facility] Comment on above: Order Comment: Speci men Type: BLOOD SPECIMENOrdering Facility: [facility] Address: [address] [place] [address] Performed By: #### 5 8410-2 ####[facility] LABIA [id number] [address] [place] Hematocrit (Bld) [Volume fraction] 37.9 % Low 39.0-51.0 [facility] Comment on above: Order Comment: Speci men Type: BLOOD SPECIMENOrdering Facility: [facility] Address: [address] [place] [address] Performed By: #### 5 8410-2 ####[facility] LABIA [id number] [place] [id number] [place] Hemoglobin (Bld) [Mass/Vol] 13.8 g/dL Normal 13.0-17.0 [facility] Comment on above: Order Comment: Speci men Type: BLOOD SPECIMENOrdering Facility: [facility] Address: [address] [place] [address] Performed By: #### 5 8410-2 ####[facility] LABIA [id number] [place] [address] [place] MCH (RBC) [Entitic mass] 30.9 pg Normal 26.0-34.0 [facility] Comment on above: Order Comment: Speci men Type: BLOOD SPECIMENOrdering Facility: [facility] Address: [address] [place] [address] Performed By: #### 5 8410-2 ####[facility] LABIA [id number] [place] [address] [place] MCHC (RBC) [Mass/Vol] 36.4 g/dL High 30.5-36.0 [facility] Comment on above: Order Comment: Speci men Type: BLOOD SPECIMENOrdering Facility: [facility] Address: [address] [place] [address] Performed By: #### 5 8410-2 ####[facility] [id number] [address] [place] MCV (RBC) [Entitic vol] 85.0 fL Normal 80.0-100.0 [facility] Comment on above: Order Comment: Speci men Type: BLOOD SPECIMENOrdering Facility: [facility] Address: [address] [place] [address] Performed By: #### 5 8410-2 ####[facility] [id number] [place] [address] [place] Nucleated RBC (Bld) [#/Vol] 10*3/uL Normal <0.01 [facility] Comment on above: Order Comment: Speci men Type: BLOOD SPECIMENOrdering Facility: [facility] Address: [address] [place] [address] Performed By: #### 5 8410-2 ####[facility] [id number] [place] [address] [place] Platelet mean volume (Bld) [Entitic vol] 10.3 fL Normal 9.0-12.7 [facility] Comment on above: Order Comment: Speci men Type: BLOOD SPECIMENOrdering Facility: [facility] Address: [address] [place] [address] Performed By: #### 5 8410-2 ####[facility] LABCLIA [id number] [place] [address] [place] Platelets (Bld) [#/Vol] 189 10*3/uL Normal 150-400 [facility] Comment on above: Order Comment: Speci men Type: BLOOD SPECIMENOrdering Facility: [facility] Address: [address] [place] [address] Performed By: #### 5 8410-2 ####[facility] LABIA [id number] [place] [address] [place] RBC (Bld) [#/Vol] 4.46 10*6/uL Normal 4.20-6.00 [facility] Comment on above: Order Comment: Speci men Type: BLOOD SPECIMENOrdering Facility: [facility] Address: [address] [place] [address] Performed By: #### 5 8410-2 ####[facility] LABIA [id number] [place] [address] [place] WBC (Bld) [#/Vol] 6.32 10*3/uL Normal 3.70-11.00 [facility] Comment on above: Order Comment: Speci men Type: BLOOD SPECIMENOrdering Facility: [facility] Address: [address] [place] [address] Performed By: #### 5 8410-2 ####[facility] LABIA [id number] [place] [id number] [place] NUTRITIONon 09-29-2024 NUTRITION HNO ID: [id number] Author: VIKKI MONTESINOS DTR Service: Nutrition Therapy Author Type: Climatology Teacher Type: Nutrition Filed: 09/29/2024 11:02 Note Text: NUTRITION THERAPY 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 Will need to follow up for intake improvements.) Plan of Care: Follow-Up: Tech Reassessment Nursing Admission Assessment Malnutrition Score: 0 Nutrition Intake: Diet Orders (From admission, onward) Start Ordered 09/24/24 0315 DIET FOOD CONSISTENCY CONTROLLED START NOW Question Answer Comment Food Consistency SOFT AND BITE-SIZED (L6) Liquid Consistency MILDLY THICK (L2)/NECTAR 09/24/24 0303 Average Daily Calorie Intake (kcal): 1089 kcal Average Daily Protein Intake (gm): 50 gm Average intake over: 5 days (Intakes noted at 50% of meals served. RN confirmed patient has been eating some of his meal trays.) Appetite: Fair GI Symptoms: None Anthropometrics: Weight: 125.7 kg (277 lb 1.9 oz) Body mass index is 43.4 kg/m?. Loss of lean body mass/visual muscle wasting: No Weight Change: Decreased Food Preferences: None Allergies: No food allergies MNT Billing: $ Routine Care : 1-15 minutes SIGNATURE: Vikki Montesinos DTR PATIENT NAME: Evangelista Borrego JR DATE: September 29, 2024 TIME: 11:02 AM Normal [facility] Renal function 2000 panelon 09-29-2024 Albumin [Mass/Vol] 3.6 g/dL Low 3.9-4.9 [facility] Comment on above: Order Comment: Speci men Type: BLOOD SPECIMENOrdering Facility: [facility] Address: [address] [place] [address] Performed By: #### 2 4362-6 ####[facility] LABCLIA [id number] [place] [address] [place] Anion gap [Moles/Vol] 10 mmol/L Normal 8-15 [facility] Comment on above: Order Comment: Speci men Type: BLOOD SPECIMENOrdering Facility: [facility] Address: [address] [place] [address] Performed By: #### 2 4362-6 ####[facility] LABCLIA [id number] [facility] CENTERK [id number][place] [address] [place] Calcium [Mass/Vol] 9.2 mg/dL Normal 8.5-10.2 [facility] Comment on above: Order Comment: Speci men Type: BLOOD SPECIMENOrdering Facility: [facility] Address: [address] [place] [address] Performed By: #### 2 4362-6 ####[facility] LABCLIA [id number] [facility] [address] [place] [address] [place] Chloride [Moles/Vol] 107 mmol/L Normal 98-107 [facility] Comment on above: Order Comment: Speci men Type: BLOOD SPECIMENOrdering Facility: [facility] Address: [address] [place] [address] Performed By: #### 2 4362-6 ####[facility] LABCLIA [id number] [place] [id number] [place] CO2 [Moles/Vol] 23 mmol/L Normal 22-30 [facility] Comment on above: Order Comment: Speci men Type: BLOOD SPECIMENOrdering Facility: [facility] Address: [address] [place] [address] Performed By: #### 2 4362-6 ####[facility] LABCLIA [id number] [place] [id number] [place] Creatinine [Mass/Vol] 0.92 mg/dL Normal 0.73-1.22 [facility] Comment on above: Order Comment: Speci men Type: BLOOD SPECIMENOrdering Facility: [facility] Address: [address] [place] [address] Performed By: #### 2 4362-6 ####[facility] LABCLIA [id number] [facility] [address] [address] [place] Creatinine and Glomerular filtration rate.predicted panel (S/P/Bld) 96 mL/min/1.73m??? Normal >=60 [facility] Comment on above: Order Comment: Jonas florez Type: BLOOD SPECIMENOrdering Facility: [facility] Address: [address] [place] [address] Result Comment: Bianca mated Glomerular Filtration Rate (eGFR) is calculated using the 2020 CKD-EPI creatinine equation. This equation utilizes serum creatinine, sex, and age as parameters. The creatinine assay has traceable calibration to isotope dilution-mass spectrometry. Refer to KDIGO guidelines for clinical interpretation. In patients with unstable renal function, e.g. those with acute kidney injury, the eGFR may not accurately reflect actual GFR. Performed By: #### 2 4362-6 ####[facility] [id number] [place] [address] [place] Glucose [Mass/Vol] 144 mg/dL High 74-99 [facility] Comment on above: Order Comment: Jonas florez Type: BLOOD SPECIMENOrdering Facility: [facility] Address: [address] [place] [address] Result Comment: The [place] Diabetes Association (ADA) provides guidance for cutoff values for fasting glucose and random glucose. The ADA defines fasting as no caloric intake for at least 8 hours. Fasting plasma glucose results between 100 to 125 mg/dL indicate increased risk for diabetes (prediabetes). Fasting plasma glucose results greater than or equal to 126 mg/dL meet the criteria for diagnosis of diabetes. In the absence of unequivocal hyperglycemia, results should be confirmed by repeat testing. In a patient with classic symptoms of hyperglycemia or hyperglycemic crisis, random plasma glucose results greater than or equal to 200 mg/dL meet the criteria for diagnosis of diabetes. Reference: Standards of Medical Care in Diabetes 2016, [place] Diabetes Association. Diabetes Care. 2016.39(Suppl 1). Performed By: #### 2 4362-6 ####[facility] [id number] [place] [id number] [place] Phosphate [Mass/Vol] 3.3 mg/dL Normal 2.7-4.8 [facility] Comment on above: Order Comment: Jonas florez Type: BLOOD SPECIMENOrdering Facility: [facility] Address: [address] [place], [place] [address] Performed By: #### 2 4362-6 ####[facility] LABCLIA [id number] [address] [address] [place] Potassium [Moles/Vol] 3.7 mmol/L Normal 3.7-5.1 [facility] Comment on above: Order Comment: Speci men Type: BLOOD SPECIMENOrdering Facility: [facility] Address: [address] [place] [address] Performed By: #### 2 4362-6 ####[facility] LABCLIA [id number] [place] [id number] [place] Sodium [Moles/Vol] 140 mmol/L Normal 136-144 [facility] Comment on above: Order Comment: Speci men Type: BLOOD SPECIMENOrdering Facility: [facility] Address: [address] [place] [address] Performed By: #### 2 4362-6 ####[facility] LABCLIA [id number] [place] [id number] [place] Urea nitrogen [Mass/Vol] 18 mg/dL Normal 9-24 [facility] Comment on above: Order Comment: Speci men Type: BLOOD SPECIMENOrdering Facility: [facility] Address: [address] [place] [address] Performed By: #### 2 4362-6 ####[facility] LABCLIA [id number] [address] [place] [address] [place] CBC panel Auto (Bld)on 09-28 Erythrocyte distribution width (RBC) [Ratio] 12.9 % Normal 11.5-15.0 [facility] Comment on above: Order Comment: Speci men Type: BLOOD SPECIMENOrdering Facility: [facility] Address: [address] [place] [address] Performed By: #### 5 8410-2 ####[facility] LABCLIA [id number] [place] [address] [place] Hematocrit (Bld) [Volume fraction] 41.6 % Normal 39.0-51.0 [facility] Comment on above: Order Comment: Speci men Type: BLOOD SPECIMENOrdering Facility: [facility] Address: [address] [place] [address] Performed By: #### 5 8410-2 ####[facility] LABIA [id number] [place] [address] [place] Hemoglobin (Bld) [Mass/Vol] 14.4 g/dL Normal 13.0-17.0 [facility] Comment on above: Order Comment: Speci men Type: BLOOD SPECIMENOrdering Facility: [facility] Address: [address] [place] [address] Performed By: #### 5 8410-2 ####[facility] LABIA [id number] [place] [address] [place] MCH (RBC) [Entitic mass] 30.1 pg Normal 26.0-34.0 [facility] Comment on above: Order Comment: Speci men Type: BLOOD SPECIMENOrdering Facility: [facility] Address: [address] [place] [address] Performed By: #### 5 8410-2 ####[facility] LABIA [id number] [place] [address] [place] MCHC (RBC) [Mass/Vol] 34.6 g/dL Normal 30.5-36.0 [facility] Comment on above: Order Comment: Speci men Type: BLOOD SPECIMENOrdering Facility: [facility] Address: [address] [place] [address] Performed By: #### 5 8410-2 ####[facility] LABIA [id number] [place] [address] [place] MCV (RBC) [Entitic vol] 86.8 fL Normal 80.0-100.0 [facility] Comment on above: Order Comment: Speci men Type: BLOOD SPECIMENOrdering Facility: [facility] Address: [address] [place] [address] Performed By: #### 5 8410-2 ####[facility] LABCLIA [id number] [place] [id number] [place] Nucleated RBC (Bld) [#/Vol] 10*3/uL Normal <0.01 [facility] Comment on above: Order Comment: Speci men Type: BLOOD SPECIMENOrdering Facility: [facility] Address: [address] [place] [address] Performed By: #### 5 8410-2 ####[facility] LABIA [id number] [place] [address] [place] Platelet mean volume (Bld) [Entitic vol] 10.3 fL Normal 9.0-12.7 [facility] Comment on above: Order Comment: Speci men Type: BLOOD SPECIMENOrdering Facility: [facility] Address: [address] [place] [address] Performed By: #### 5 8410-2 ####[facility] LABIA [id number] [place] [address] [place] Platelets (Bld) [#/Vol] 180 10*3/uL Normal 150-400 [facility] Comment on above: Order Comment: Speci men Type: BLOOD SPECIMENOrdering Facility: [facility] Address: [address] [place] [address] Performed By: #### 5 8410-2 ####[facility] LABIA [id number] [place] [address] [place] RBC (Bld) [#/Vol] 4.79 10*6/uL Normal 4.20-6.00 [facility] Comment on above: Order Comment: Speci men Type: BLOOD SPECIMENOrdering Facility: [facility] Address: [address] [place] [address] Performed By: #### 5 8410-2 ####[facility] LABCLIA [id number] [place] [id number] [place] WBC (Bld) [#/Vol] 6.29 10*3/uL Normal 3.70-11.00 [facility] Comment on above: Order Comment: Speci men Type: BLOOD SPECIMENOrdering Facility: [facility] Address: [address] [facility] [address] [place] [id number] Performed By: #### 5 8410-2 ####[facility] LABCLIA [id number] [place] [id number] [facility] [place] CONSULT PROGon 09-28-2024 CONSULT PROG HNO ID: [id number] Author: CHARLA GONZALES APRN.WARDROBE COORDINATOR Service: Endocrinology Author Type: Nurse Practitioner Type: Consult Progress Note Filed: 09/28/2024 17:55 Note Text: DIABETES CARE TEAM NOTE SERVICE DATE: 09/28/2024 SERVICE TIME: 6:37 AM Subjective Summary of History from Prior Record: Consult Date: 09/23/24 HPI, and DM history and a portion of my Impression and Plan have been copied from Brittani, AIDEN note on 09/27/24. Today's changes are noted in bold text. My note reflects my medical decision making from today, and my recommendations will be communicated via the Electronic Health Record. Patient with slurred speech, unable to understand him. I called pt's who told me she does not know what medication he takes he was doing his own meds. Information obtained from EMR HPI: Mr. Evangelista Borrego JR is a 59 year old male with a history of Diabetes Mellitus Type 2 hyperglycemia who was admitted on 09/22/2024 for stroke. Past medical history significant for HLD, Generalized anxiety disorder, Mixed hyperlipidemia, Seizures. Last HbA1c was 9.7 on 09/22/24. He has a family history of diabetes in his brother. He is followed by PCP for his diabetes. DIABETIC COMPLICATIONS: Stoke neuropathy Pre-Admission DM Regimen: per note from Nena Pardo DO on 03/29/2024 Preadmission oral agents: per chart Glimepiride 2mg Metformin XR 750 mg with evening meals Preadmission insulin regimen: None Self Monitoring Blood Glucose: Type of Monitor: freestyle meter from chart Frequency of Monitoring: BG Values: AIC 9.7 Hypoglycemia: unknown INTERVAL HPI: sleeping Objective PHYSICAL EXAM: BP 138/63 Pulse (!) 54 Temp 37.3 ?C (99.1 ?F) (Oral) Resp 20 Ht 170.2 cm (5' 7) Wt 123.2 kg (271 lb 9.7 oz) SpO2 96% BMI 42.54 kg/m? General Appearance:In no apparent distress and Sleeping soundly Affect:Appears calm Eyes:closed Breathing unlabored [place] Laboratory Results: Glucose (mg/dL) Date Value 09/27/2024 134 03/13/2013 160 Potassium (mmol/L) Date Value 09/27/2024 3.8 03/13/2013 3.9 Sodium (mmol/L) Date Value 09/27/2024 140 03/13/2013 135 Chloride (mmol/L) Date Value 09/27/2024 106 03/13/2013 99 CO2 (mmol/L) Date Value 09/27/2024 24 03/13/2013 23 Creatinine (mg/dL) Date Value 09/27/2024 0.94 03/13/2013 0.70 BUN (mg/dL) Date Value 09/27/2024 16 03/13/2013 16 Anion Gap (mmol/L) Date Value 09/27/2024 10 03/13/2013 13 Calcium (mg/dL) Date Value 03/13/2013 9.3 Calcium, Total (mg/dL) Date Value 09/27/2024 8.9 ALT Date Value Ref Range Status 08/03/2012 27 5 - 50 U/L Final AST Date Value Ref Range Status 08/03/2012 17 7 - 40 U/L Final Hemoglobin (g/dL) Date Value 09/28/2024 14.4 04/02/2013 14.9 Hematocrit (%) Date Value 09/28/2024 41.6 04/02/2013 43.5 WBC (k/uL) Date Value 09/28/2024 6.29 04/02/2013 9.12 Platelet Count (k/uL) Date Value 09/28/2024 180 04/02/2013 248 Hemoglobin A1C (%) Date Value 09/22/2024 9.7 03/13/2013 6.7 LV Ejection Fraction (%) Date Value 09/23/2024 56 [facility] Hospital Hospital BG values or ranges: Date AM LUNCH DINNER HS 3AM 09/22/2024 186 09/23/2024 262A2 302A4 255A6 Cvmppa20 172A2 161A2 09/24/2024 170A4+2 246A4+4 Habqyq83 196A4+2 227A4 185A2 09/25/2024 163A2+5 213A5+4 Ckdgtb35 160A5+2 115 132 09/26 148 A5 183 A5+2 Lantus 20 181 A5+2 144 129 09/27 135 251 A6 lantus 20 170 A2 152 A2 143 09/28 130 A5 195 A5 lantus 20 143 Other Pertinent Medications: Continuous Infusion: None Steroids: none Diet: Soft bite sized(L6) mildly thick (L2) nectar Tube Feeding: No Supplements: none Impression/Recommend ations Patient with Diabetes Mellitus Type 2 hyperglycemia s/p stroke whom we have been consulted for glycemic control. Blood Glucose and Labs Reviewed. Lunch glucose elevated so will increase breakfast prandial for tomorrow. Continue to monitor trends and adjust as needed. RECOMMENDATIONS: Basal Insulin: Lantus 20 units every noon Prandial Insulin: Admelog 8-5-5 units AC TID Supplemental Sliding Scale: Admelog Program #2 AC AND HS and 2am Accuchecks: AC/HS and 2 AM Recommend As per Unit Dietitian Endo CDE consulted regarding: AR as of 09/23 5:54 PM Per notes, patient to be discharged tomorrow. Given stable trends, Endo to sign off. Patient to continue hospital regimen at rehab. Endocrinology to sign off. Thank you for allowing us to participate in the care of Evangelista. Please re-consult if diet changes, fluctuation in blood sugar occurs, or for any PRN need. DM DISCHARGE PLAN:AR as of 09/28 Continue hospital plan at rehab except for 0200 scale Lantus 20 units every noon Prandial Insulin: Admelog 8-5-5 units AC TID Supplemental Sliding Scale: Admelog Program #2 AC AND HS Check blood sugars Three times a Day Diet: As per Unit Dietitian Exercise as prescribed b (more content not included)... Normal [facility] CT BRAIN WO IVCONon 09-29-[address] BRAIN WO IVCON * * *Final Report* * * DATE OF EXAM: Sep 28 2024 3:00PM [facility] 0504 - CT BRAIN WO IVCON / PROCEDURE REASON: Stroke, follow up * * * * Physician Interpretation * * * * COMPARISONS: MRI brain from 09/23/2024. HISTORY: Stroke follow-up. TECHNIQUE: Head CT without contrast. MQ: [id number]_3 CT Dose-Length Product (DLP): 716 mGy*cm CT Dose Reduction Employed: No dose reduction techniques were required RESULT: HEAD CT: Acute abnormality: Left thalamic infarct. Stable low attenuation within the left thalamic region extending inferiorly up to the inferior most portion of the anterior thalamus with local mass effect and indentation on the third ventricle without obstructive hydrocephalus with stable distribution and without hemorrhagic conversion. This is consistent with a thalamic supervisor pipe manufacture posterior circulation subacute nonhemorrhagic infarct. Stable remaining znigx-xwjxs-qnlt tissues without any additional disease. 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 Wool Merchant: PSCB Transcribe Date/Time: Sep 28 2024 3:23P Dictated by : ROHIT OROURKE MD This examination was interpreted and the report reviewed and electronically signed by: ROHIT OROURKE MD on Sep 28 2024 3:26PM EST [id number] CN Normal [facility] Renal function 2000 panelon 09-28-2024 Albumin [Mass/Vol] 3.7 g/dL Low 3.9-4.9 [facility] Comment on above: Order Comment: Speci men Type: BLOOD SPECIMENOrdering Facility: [facility] Address: [address] [place] [address] Performed By: #### 2 4362-6 ####[facility] LABCLIA [id number] [place] [address] [place] Anion gap [Moles/Vol] 14 mmol/L Normal 8-15 [facility] Comment on above: Order Comment: Speci men Type: BLOOD SPECIMENOrdering Facility: [facility] Address: [address] [place] [address] Performed By: #### 2 4362-6 ####[facility] LABCLIA [id number] [address] [place] [address] [place] Calcium [Mass/Vol] 9.1 mg/dL Normal 8.5-10.2 [facility] Comment on above: Order Comment: Speci men Type: BLOOD SPECIMENOrdering Facility: [facility] Address: [address] [place], [place] [address] Performed By: #### 2 4362-6 ####[facility] LABCLIA [id number] [address] [place] [address] [place] Chloride [Moles/Vol] 107 mmol/L Normal 98-107 [facility] Comment on above: Order Comment: Speci men Type: BLOOD SPECIMENOrdering Facility: [facility] Address: [address] [place], [place] [address] Performed By: #### 2 4362-6 ####[facility] LABCLIA [id number] [address] [address] [place] CO2 [Moles/Vol] 22 mmol/L Normal 22-30 [facility] Comment on above: Order Comment: Speci men Type: BLOOD SPECIMENOrdering Facility: [facility] Address: [address] [place], [place] [address] Performed By: #### 2 4362-6 ####[facility] LABCLIA [id number] [address] [place] [address] [place] Creatinine [Mass/Vol] 0.88 mg/dL Normal 0.73-1.22 [facility] Comment on above: Order Comment: Speci men Type: BLOOD SPECIMENOrdering Facility: [facility] Address: [address] [place], [place] [address] Performed By: #### 2 4362-6 ####[facility] LABCLIA [id number] [place] [address] [place] Creatinine and Glomerular filtration rate.predicted panel (S/P/Bld) 100 mL/min/1.73m??? Normal >=60 [facility] Comment on above: Order Comment: Jonas florez Type: BLOOD SPECIMENOrdering Facility: [facility] Address: [address] [place] [address] Result Comment: Bianca mated Glomerular Filtration Rate (eGFR) is calculated using the 2020 CKD-EPI creatinine equation. This equation utilizes serum creatinine, sex, and age as parameters. The creatinine assay has traceable calibration to isotope dilution-mass spectrometry. Refer to KDIGO guidelines for clinical interpretation. In patients with unstable renal function, e.g. those with acute kidney injury, the eGFR may not accurately reflect actual GFR. Performed By: #### 2 4362-6 ####[facility] LABCLIA [id number] [place] [address] [place] Glucose [Mass/Vol] 108 mg/dL High 74-99 [facility] Comment on above: Order Comment: Jonas florez Type: BLOOD SPECIMENOrdering Facility: [facility] Address: [address] [place] [address] Result Comment: The [place] Diabetes Association (ADA) provides guidance for cutoff values for fasting glucose and random glucose. The ADA defines fasting as no caloric intake for at least 8 hours. Fasting plasma glucose results between 100 to 125 mg/dL indicate increased risk for diabetes (prediabetes). Fasting plasma glucose results greater than or equal to 126 mg/dL meet the criteria for diagnosis of diabetes. In the absence of unequivocal hyperglycemia, results should be confirmed by repeat testing. In a patient with classic symptoms of hyperglycemia or hyperglycemic crisis, random plasma glucose results greater than or equal to 200 mg/dL meet the criteria for diagnosis of diabetes. Reference: Standards of Medical Care in Diabetes 2016, [place] [employer]. Diabetes Care. 2016.39(Suppl 1). Performed By: #### 2 4362-6 ####[facility] LABCLIA [id number] [place] [id number] [place] Phosphate [Mass/Vol] 2.7 mg/dL Normal 2.7-4.8 [facility] Comment on above: Order Comment: Speci men Type: BLOOD SPECIMENOrdering Facility: [facility] Address: [address] [place], [place] [address] Performed By: #### 2 4362-6 ####[facility] LABCLIA [id number] [address] [address] [place] Potassium [Moles/Vol] 3.6 mmol/L Low 3.7-5.1 [facility] Comment on above: Order Comment: Speci men Type: BLOOD SPECIMENOrdering Facility: [facility] Address: [address] [place] [address] Performed By: #### 2 4362-6 ####[facility] LABCLIA [id number] [address] [address] [place] Sodium [Moles/Vol] 143 mmol/L Normal 136-144 [facility] Comment on above: Order Comment: Speci men Type: BLOOD SPECIMENOrdering Facility: [facility] Address: [address] [place], [place] [address] Performed By: #### 2 4362-6 ####[facility] LABCLIA [id number] [address] [address] [place] Urea nitrogen [Mass/Vol] 17 mg/dL Normal 9-24 [facility] Comment on above: Order Comment: Speci men Type: BLOOD SPECIMENOrdering Facility: [facility] Address: [address] [place] [address] Performed By: #### 2 4362-6 ####[facility] LABCLIA [id number] [address] [address] [place] CASE MANAGEMon 09-27-2024 CASE MANAGEM HNO ID: [id number] Author: ADRIANA ALCANTAR, ? Service: ? Author Type: ? Type: Care Mgt Progress Note Filed: 09/27/2024 16:33 Note Text: [facility] PRECERT NOTE [facility] [employer] approved Inpatient Rehab Facility for [facility]. Precert approved through 10/08/2024. For any additional questions regarding approvals, transport or care management needs, please contact the CM assigned to this patient in the Treatment Team. SIGNATURE: Adriana Alcantar DATE: September 27, 2024 TIME: 4:32 PM Normal [facility] CBC panel Auto (Bld)on 09-27 Erythrocyte distribution width (RBC) [Ratio] 12.7 % Normal 11.5-15.0 [facility] Comment on above: Order Comment: Speci men Type: BLOOD SPECIMENOrdering Facility: [facility] Address: [address] [place] [address] Performed By: #### 5 8410-2 ####[facility] LABIA [id number] [place] [address] [place] Hematocrit (Bld) [Volume fraction] 41.8 % Normal 39.0-51.0 [facility] Comment on above: Order Comment: Speci men Type: BLOOD SPECIMENOrdering Facility: [facility] Address: [address] [place] [address] Performed By: #### 5 8410-2 ####[facility] LABIA [id number] [place] [address] [place] Hemoglobin (Bld) [Mass/Vol] 14.4 g/dL Normal 13.0-17.0 [facility] Comment on above: Order Comment: Speci men Type: BLOOD SPECIMENOrdering Facility: [facility] Address: [address] [place] [address] Performed By: #### 5 8410-2 ####[facility] LABIA [id number] [place] [address] [place] MCH (RBC) [Entitic mass] 30.2 pg Normal 26.0-34.0 [facility] Comment on above: Order Comment: Speci men Type: BLOOD SPECIMENOrdering Facility: [facility] Address: [address] [place] [address] Performed By: #### 5 8410-2 ####[facility] LABCLIA [id number] [place] [address] [place] MCHC (RBC) [Mass/Vol] 34.4 g/dL Normal 30.5-36.0 [facility] Comment on above: Order Comment: Speci men Type: BLOOD SPECIMENOrdering Facility: [facility] Address: [address] [place] [address] Performed By: #### 5 8410-2 ####[facility] LABIA [id number] [place] [address] [place] MCV (RBC) [Entitic vol] 87.6 fL Normal 80.0-100.0 [facility] Comment on above: Order Comment: Speci men Type: BLOOD SPECIMENOrdering Facility: [facility] Address: [address] [place] [address] Performed By: #### 5 8410-2 ####[facility] LABIA [id number] [place] [address] [place] Nucleated RBC (Bld) [#/Vol] 10*3/uL Normal <0.01 [facility] Comment on above: Order Comment: Speci men Type: BLOOD SPECIMENOrdering Facility: [facility] Address: [address] [place] [address] Performed By: #### 5 8410-2 ####[facility] LABIA [id number] [place] [address] [place] Platelet mean volume (Bld) [Entitic vol] 10.0 fL Normal 9.0-12.7 [facility] Comment on above: Order Comment: Speci men Type: BLOOD SPECIMENOrdering Facility: [facility] Address: [address] [place] [address] Performed By: #### 5 8410-2 ####[facility] LABCLIA [id number] [place] [id number] [place] Platelets (Bld) [#/Vol] 181 10*3/uL Normal 150-400 [facility] Comment on above: Order Comment: Speci men Type: BLOOD SPECIMENOrdering Facility: [facility] Address: [address] [place] [address] Performed By: #### 5 8410-2 ####[facility] [id number] [place] [address] [place] RBC (Bld) [#/Vol] 4.77 10*6/uL Normal 4.20-6.00 [facility] Comment on above: Order Comment: Speci men Type: BLOOD SPECIMENOrdering Facility: [facility] Address: [address] [place] [address] Performed By: #### 5 8410-2 ####[facility] [id number] [place] [address] [place] WBC (Bld) [#/Vol] 5.63 10*3/uL Normal 3.70-11.00 [facility] Comment on above: Order Comment: Speci men Type: BLOOD SPECIMENOrdering Facility: [facility] Address: [address] [place] [address] Performed By: #### 5 8410-2 ####[facility] [id number] [address] [place] CONSULT PROGon 09-27-2024 CONSULT PROG HNO ID: [id number] Author: CHARLA GONZALES, ONIEL.WARDROBE COORDINATOR Service: Endocrinology Author Type: Nurse Practitioner Type: Consult Progress Note Filed: 09/27/2024 18:00 Note Text: DIABETES CARE TEAM NOTE SERVICE DATE: 09/27/2024 SERVICE TIME: 6:15 AM Subjective Summary of History from Prior Record: Consult Date: 09/23/24 HPI, and DM history and a portion of my Impression and Plan have been copied from Brittani, AIDEN note on 09/26/24. Today's changes are noted in bold text. My note reflects my medical decision making from today, and my recommendations will be communicated via the Electronic Health Record. Patient with slurred speech, unable to understand him. I called pt's who told me she does not know what medication he takes he was doing his own meds. Information obtained from EMR HPI: Mr. Evangelista Borrego JR is a 59 year old male with a history of Diabetes Mellitus Type 2 hyperglycemia who was admitted on 09/22/2024 for stroke. Past medical history significant for HLD, Generalized anxiety disorder, Mixed hyperlipidemia, Seizures. Last HbA1c was 9.7 on 09/22/24. He has a family history of diabetes in his brother. He is followed by PCP for his diabetes. DIABETIC COMPLICATIONS: Stoke neuropathy Pre-Admission DM Regimen: per note from Nena Pardo DO on 03/29/2024 Preadmission oral agents: per chart Glimepiride 2mg Metformin XR 750 mg with evening meals Preadmission insulin regimen: None Self Monitoring Blood Glucose: Type of Monitor: freestyle meter from chart Frequency of Monitoring: BG Values: AIC 9.7 Hypoglycemia: unknown INTERVAL HPI: Sleeping Objective PHYSICAL EXAM: BP 151/66 Pulse (!) 53 Temp 37.4 ?C (99.3 ?F) (Oral) Resp 17 Ht 170.2 cm (5' 7) Wt 123.2 kg (271 lb 9.7 oz) SpO2 98% BMI 42.54 kg/m? General Appearance:In no apparent distress and Sleeping soundly Affect: Appears calm Eyes:closed Breathing unlabored via NC Laboratory Results: Glucose (mg/dL) Date Value 09/26/2024 137 03/13/2013 160 Potassium (mmol/L) Date Value 09/26/2024 3.8 03/13/2013 3.9 Sodium (mmol/L) Date Value 09/26/2024 141 03/13/2013 135 Chloride (mmol/L) Date Value 09/26/2024 104 03/13/2013 99 CO2 (mmol/L) Date Value 09/26/2024 23 03/13/2013 23 Creatinine (mg/dL) Date Value 09/26/2024 1.01 03/13/2013 0.70 BUN (mg/dL) Date Value 09/26/2024 16 03/13/2013 16 Anion Gap (mmol/L) Date Value 09/26/2024 14 03/13/2013 13 Calcium (mg/dL) Date Value 03/13/2013 9.3 Calcium, Total (mg/dL) Date Value 09/26/2024 9.3 ALT Date Value Ref Range Status 08/03/2012 27 5 - 50 U/L Final AST Date Value Ref Range Status 08/03/2012 17 7 - 40 U/L Final Hemoglobin (g/dL) Date Value 09/26/2024 15.1 04/02/2013 14.9 Hematocrit (%) Date Value 09/26/2024 42.9 04/02/2013 43.5 WBC (k/uL) Date Value 09/26/2024 6.55 04/02/2013 9.12 Platelet Count (k/uL) Date Value 09/26/2024 191 04/02/2013 248 Hemoglobin A1C (%) Date Value 09/22/2024 9.7 03/13/2013 6.7 LV Ejection Fraction (%) Date Value 09/23/2024 56 [facility] Hospital BG values or ranges: Date AM LUNCH DINNER HS 3AM 09/22/2024 186 09/23/2024 262A2 302A4 255A6 Ijkoce24 172A2 161A2 09/24/2024 170A4+2 246A4+4 Lhjqvv35 196A4+2 227A4 185A2 09/25/2024 163A2+5 213A5+4 Idzkbh37 160A5+2 115 132 3/6 148 A5 183 A5+2 Lantus 20 181 A5+2 144 129 3/7 135 251 A6 lantus 20 170 A2 Other Pertinent Medications: Continuous Infusion: NaCl 0.9%: Last Rate: 75 mL/hr (09/26/24 1400) Steroids: none Diet: Soft bite sized(L6) mildly thick (L2) nectar Tube Feeding: No Supplements: none Impression/Recommend ations Patient with Diabetes Mellitus Type 2 hyperglycemia s/p stroke whom we have been consulted for glycemic control. Blood Glucose and Labs Reviewed. Per primary, to be discharged today. Recs below. 12:00 PM Lunch glucose elevated but not a trend. Consider due to no prandials at breakfast or snacked prior. No changes for now. RECOMMENDATIONS: Basal Insulin: Lantus 20 units every noon Prandial Insulin: Admelog 5 units AC TID Supplemental Sliding Scale: Admelog Program #2 AC AND HS and 2am Accuchecks: AC/HS and 2 AM Recommend As per Unit Dietitian Endo CDE consulted regarding: AR as of 09/23 DM DISCHARGE PLAN:AR as of 09/23 Continue hospital plan at rehab except for 0200 scale Lantus 20 units every noon Prandial Insulin: Admelog 5 units AC TID Supplemental Sliding Scale: Admelog Program #2 AC AND HS Check blood sugars Three times a Day Diet: As per Unit Dietitian Exercise as prescribed by primary team Follow up with director of in service education and color card maker as recommended. Patient will [facility] ([facility]) or with his home grinding operator/PCP in 1-2 weeks after discharge. SIGNATURE: Charla Gonzales, ONIEL- WARDROBE COORDINATOR Endocrinology Metabolic Insti (more content not included)... Normal [facility] Phenytoin Free SerPl-mCncon 09-27-2024 Phenytoin Free [Mass/Vol] 0.5 ug/mL Low 1.0-2.0 [facility] Comment on above: Order Comment: Jonas florez Type: BLOOD SPECIMENOrdering Facility: [facility] Address: [address] [place] [address] Result Comment: Refe rence ranges and high/low indicator flags are provided as general guidelines only. The treating physician must determine appropriate target levels/dosing based on the specific clinical situation. Performed By: #### 3 969-3 ####[facility] LABCLIA [id number] [place] [address] [place] Renal function 2000 panelon 09-27-2024 Albumin [Mass/Vol] 3.7 g/dL Low 3.9-4.9 [facility] Comment on above: Order Comment: Spectono florez Type: BLOOD SPECIMENOrdering Facility: [facility] Address: [address] [place] [address] Performed By: #### 2 4362-6 ####[facility] LABCLIA [id number] [facility] [address] [place] [address] [place] Anion gap [Moles/Vol] 10 mmol/L Normal 8-15 [facility] Comment on above: Order Comment: Speci men Type: BLOOD SPECIMENOrdering Facility: [facility] Address: [address] [place], [place] [address] Performed By: #### 2 4362-6 ####[facility] LABCLIA [id number] [facility] [address] [address] [place] Calcium [Mass/Vol] 8.9 mg/dL Normal 8.5-10.2 [facility] Comment on above: Order Comment: Speci men Type: BLOOD SPECIMENOrdering Facility: [facility] Address: [address] [place], [place] [address] Performed By: #### 2 4362-6 ####[facility] LABCLIA [id number] [address] [address] [place] Chloride [Moles/Vol] 106 mmol/L Normal 98-107 [facility] Comment on above: Order Comment: Speci men Type: BLOOD SPECIMENOrdering Facility: [facility] Address: [address] [place], [place] [address] Performed By: #### 2 4362-6 ####[facility] LABCLIA [id number] [address] [address] [place] CO2 [Moles/Vol] 24 mmol/L Normal 22-30 [facility] Comment on above: Order Comment: Speci men Type: BLOOD SPECIMENOrdering Facility: [facility] Address: [address] [place] [address] Performed By: #### 2 4362-6 ####[facility] LABCLIA [id number] [facility] [address] [place] [address] [place] Creatinine [Mass/Vol] 0.94 mg/dL Normal 0.73-1.22 [facility] Comment on above: Order Comment: Jonas florez Type: BLOOD SPECIMENOrdering Facility: [facility] Address: [address] [place] [address] Performed By: #### 2 4362-6 ####[facility] LABIA [id number] [place] [address] [place] Creatinine and Glomerular filtration rate.predicted panel (S/P/Bld) 94 mL/min/1.73m??? Normal >=60 [facility] Comment on above: Order Comment: Jonas florez Type: BLOOD SPECIMENOrdering Facility: [facility] Address: [address] [place] [address] Result Comment: Bianca mated Glomerular Filtration Rate (eGFR) is calculated using the 2020 CKD-EPI creatinine equation. This equation utilizes serum creatinine, sex, and age as parameters. The creatinine assay has traceable calibration to isotope dilution-mass spectrometry. Refer to KDIGO guidelines for clinical interpretation. In patients with unstable renal function, e.g. those with acute kidney injury, the eGFR may not accurately reflect actual GFR. Performed By: #### 2 4362-6 ####[facility] LABIA [id number] [place] [address] [place] Glucose [Mass/Vol] 134 mg/dL High 74-99 [facility] Comment on above: Order Comment: Jonas florez Type: BLOOD SPECIMENOrdering Facility: [facility] Address: [address] [place] [address] Result Comment: The [place] Diabetes Association (ADA) provides guidance for cutoff values for fasting glucose and random glucose. The ADA defines fasting as no caloric intake for at least 8 hours. Fasting plasma glucose results between 100 to 125 mg/dL indicate increased risk for diabetes (prediabetes). Fasting plasma glucose results greater than or equal to 126 mg/dL meet the criteria for diagnosis of diabetes. In the absence of unequivocal hyperglycemia, results should be confirmed by repeat testing. In a patient with classic symptoms of hyperglycemia or hyperglycemic crisis, random plasma glucose results greater than or equal to 200 mg/dL meet the criteria for diagnosis of diabetes. Reference: Standards of Medical Care in Diabetes 2016, [place] [employer]. Diabetes Care. 2016.39(Suppl 1). Performed By: #### 2 4362-6 ####[facility] LABCLIA [id number] [address] [address] [place] Phosphate [Mass/Vol] 3.1 mg/dL Normal 2.7-4.8 [facility] Comment on above: Order Comment: Speci men Type: BLOOD SPECIMENOrdering Facility: [facility] Address: [address] [place] [address] Performed By: #### 2 4362-6 ####[facility] LABCLIA [id number] [address] [address] [place] Potassium [Moles/Vol] 3.8 mmol/L Normal 3.7-5.1 [facility] Comment on above: Order Comment: Speci men Type: BLOOD SPECIMENOrdering Facility: [facility] Address: [address] [place] [address] Performed By: #### 2 4362-6 ####[facility] LABCLIA [id number] [address] [address] [place] Sodium [Moles/Vol] 140 mmol/L Normal 136-144 [facility] Comment on above: Order Comment: Speci men Type: BLOOD SPECIMENOrdering Facility: [facility] Address: [address] [place], [place] [address] Performed By: #### 2 4362-6 ####[facility] LABCLIA [id number] [address] [address] [place] Urea nitrogen [Mass/Vol] 16 mg/dL Normal 9-24 [facility] Comment on above: Order Comment: Speci men Type: BLOOD SPECIMENOrdering Facility: [facility] Address: [address] [place], [place] [address] Performed By: #### 2 4362-6 ####[facility] LABCLIA [id number] [address] [address] [place] CBC panel Auto (Bld)on 09-26 Erythrocyte distribution width (RBC) [Ratio] 12.7 % Normal 11.5-15.0 [facility] Comment on above: Order Comment: Speci men Type: BLOOD SPECIMENOrdering Facility: [facility] Address: [address] [place] [address] Performed By: #### 5 8410-2 ####[facility] LABIA [id number] [address] Hematocrit (Bld) [Volume fraction] 42.9 % Normal 39.0-51.0 [facility] Comment on above: Order Comment: Speci men Type: BLOOD SPECIMENOrdering Facility: [facility] Address: [address] [place] [address] Performed By: #### 5 8410-2 ####[facility] LABIA [id number] [address] Hemoglobin (Bld) [Mass/Vol] 15.1 g/dL Normal 13.0-17.0 [facility] Comment on above: Order Comment: Speci men Type: BLOOD SPECIMENOrdering Facility: [facility] Address: [address] [place] [address] Performed By: #### 5 8410-2 ####[facility] LABIA [id number] [place] [address] [place] MCH (RBC) [Entitic mass] 30.6 pg Normal 26.0-34.0 [facility] Comment on above: Order Comment: Speci men Type: BLOOD SPECIMENOrdering Facility: [facility] Address: [address] [place] [address] Performed By: #### 5 8410-2 ####[facility] LABIA [id number] [place] [address] [place] MCHC (RBC) [Mass/Vol] 35.2 g/dL Normal 30.5-36.0 [facility] Comment on above: Order Comment: Speci men Type: BLOOD SPECIMENOrdering Facility: [facility] Address: [address] [place] [address] Performed By: #### 5 8410-2 ####[facility] LABIA [id number] [place] [id number] [place] MCV (RBC) [Entitic vol] 87.0 fL Normal 80.0-100.0 [facility] Comment on above: Order Comment: Speci men Type: BLOOD SPECIMENOrdering Facility: [facility] Address: [address] [place] [address] Performed By: #### 5 8410-2 ####[facility] [id number] [place] [address] [place] Nucleated RBC (Bld) [#/Vol] 10*3/uL Normal <0.01 [facility] Comment on above: Order Comment: Speci men Type: BLOOD SPECIMENOrdering Facility: [facility] Address: [address] [place] [address] Performed By: #### 5 8410-2 ####[facility] [id number] [place] [address] [place] Platelet mean volume (Bld) [Entitic vol] 9.6 fL Normal 9.0-12.7 [facility] Comment on above: Order Comment: Speci men Type: BLOOD SPECIMENOrdering Facility: [facility] Address: [address] [place] [address] Performed By: #### 5 8410-2 ####[facility] LABIA [id number] [place] [id number] [place] Platelets (Bld) [#/Vol] 191 10*3/uL Normal 150-400 [facility] Comment on above: Order Comment: Speci men Type: BLOOD SPECIMENOrdering Facility: [facility] Address: [address] [place] [address] Performed By: #### 5 8410-2 ####[facility] LABCLIA [id number] [place] [id number] [place] RBC (Bld) [#/Vol] 4.93 10*6/uL Normal 4.20-6.00 [facility] Comment on above: Order Comment: Speci men Type: BLOOD SPECIMENOrdering Facility: [facility] Address: [address] [place] [address] Performed By: #### 5 8410-2 ####[facility] LABCLIA [id number] [place] [id number] [place] WBC (Bld) [#/Vol] 6.55 10*3/uL Normal 3.70-11.00 [facility] Comment on above: Order Comment: Speci men Type: BLOOD SPECIMENOrdering Facility: [facility] Address: [address] [place] [address] Performed By: #### 5 8410-2 ####[facility] LABIA [id number] [place] [id number] [place] CONSULT PROGon 09-26-2024 CONSULT PROG HNO ID: [id number] Author: CHARLA GONZALES APRN.WARDROBE COORDINATOR Service: Endocrinology Author Type: Nurse Practitioner Type: Consult Progress Note Filed: 09/26/2024 17:48 Note Text: DIABETES CARE TEAM NOTE SERVICE DATE: 09/26/2024 SERVICE TIME: 6:36 AM Subjective Summary of History from Prior Record: Consult Date: 09/23/24 HPI, and DM history and a portion of my Impression and Plan have been copied from Rosalie Landers, AIDEN note on 09/25/24. Today's changes are noted in bold text. My note reflects my medical decision making from today, and my recommendations will be communicated via the Electronic Health Record. Patient with slurred speech, unable to understand him. I called pt's who told me she does not know what medication he takes he was doing his own meds. Information obtained from EMR HPI: Mr. Evangelista Borrego is a 59 year old male with a history of Diabetes Mellitus Type 2 hyperglycemia who was admitted on 09/22/2024 for stroke. Past medical history significant for HLD, Generalized anxiety disorder, Mixed hyperlipidemia, Seizures. Last HbA1c was 9.7 on 09/22/24. He has a family history of diabetes in his brother. He is followed by PCP for his diabetes. DIABETIC COMPLICATIONS: Stoke neuropathy Pre-Admission DM Regimen: per note from Nena Pardo DO on 03/29/2024 Preadmission oral agents: per chart Glimepiride 2mg Metformin XR 750 mg with evening meals Preadmission insulin regimen: None Self Monitoring Blood Glucose: Type of Monitor: freestyle meter from chart Frequency of Monitoring: BG Values: AIC 9.7 Hypoglycemia: unknown INTERVAL HPI: Sleeping Objective PHYSICAL EXAM: BP 123/57 Pulse 64 Temp 37.4 ?C (99.4 ?F) (Oral) Resp 21 Ht 170.2 cm (5' 7) Wt 123.2 kg (271 lb 9.7 oz) SpO2 96% BMI 42.54 kg/m? General Appearance:In no apparent distress and Sleeping soundly Affect:Appears calm Eyes:closed Breathing unlabored NC Laboratory Results: Glucose (mg/dL) Date Value 09/25/2024 168 03/13/2013 160 Potassium (mmol/L) Date Value 09/25/2024 3.7 03/13/2013 3.9 Sodium (mmol/L) Date Value 09/25/2024 139 03/13/2013 135 Chloride (mmol/L) Date Value 09/25/2024 102 03/13/2013 99 CO2 (mmol/L) Date Value 09/25/2024 25 03/13/2013 23 Creatinine (mg/dL) Date Value 09/25/2024 0.92 03/13/2013 0.70 BUN (mg/dL) Date Value 09/25/2024 14 03/13/2013 16 Anion Gap (mmol/L) Date Value 09/25/2024 12 03/13/2013 13 Calcium (mg/dL) Date Value 03/13/2013 9.3 Calcium, Total (mg/dL) Date Value 09/25/2024 9.5 ALT Date Value Ref Range Status 08/03/2012 27 5 - 50 U/L Final AST Date Value Ref Range Status 08/03/2012 17 7 - 40 U/L Final Hemoglobin (g/dL) Date Value 09/25/2024 14.7 04/02/2013 14.9 Hematocrit (%) Date Value 09/25/2024 41.0 04/02/2013 43.5 WBC (k/uL) Date Value 09/25/2024 6.63 04/02/2013 9.12 Platelet Count (k/uL) Date Value 09/25/2024 208 04/02/2013 248 Hemoglobin A1C (%) Date Value 09/22/2024 9.7 03/13/2013 6.7 LV Ejection Fraction (%) Date Value 09/23/2024 56 [facility] in [facility] Hospital BG values or ranges: Date AM LUNCH DINNER HS 3AM 09/22/2024 186 09/23/2024 262A2 302A4 255A6 Kiqxce91 172A2 161A2 09/24/2024 170A4+2 246A4+4 Kngnri58 196A4+2 227A4 185A2 09/25/2024 163A2+5 213A5+4 Etmgcl27 160A5+2 115 132 09/26 148 A5 183 A5+2 Lantus 20 181 A5+2 Other Pertinent Medications: Continuous Infusion: none Steroids: none Diet: Soft bite sized(L6) mildly thick (L2) nectar Tube Feeding: No Supplements: none Impression/Recommend ations Patient with Diabetes Mellitus Type 2 hyperglycemia s/p stroke whom we have been consulted for glycemic control. Blood Glucose and Labs Reviewed. FBG within range. Per primary, plans for discharge today. Patient to continue hospital regimen at rehab. RECOMMENDATIONS: Basal Insulin: Lantus 20 units every noon Prandial Insulin: Admelog 5 units AC TID Supplemental Sliding Scale: Admelog Program #2 AC AND HS and 2am Accuchecks: AC/HS and 2 AM Recommend As per Unit Dietitian Endo CDE consulted regarding: AR as of 09/23 DM DISCHARGE PLAN:AR as of 09/23 Continue hospital plan at rehab except for 0200 scale Lantus 20 units every noon Prandial Insulin: Admelog 5 units AC TID Supplemental Sliding Scale: Admelog Program #2 AC AND HS Check blood sugars Three times a Day Diet: As per Unit Dietitian Exercise as prescribed by primary team Follow up with director of in service education and color card maker as recommended. Patient will [facility] ([facility]) or with his home grinding operator/PCP in 1-2 weeks after discharge. SIGNATURE: Charla Gonzales APRN- TUCKER Endocrinology Metabolic Hull Pager [phone] Inpatient Endo SUPPORT TECHNICIAN from 0800 to 1800 After [address] [place] [phone] PATIENT NAME: Evangelista Borrego JR DATE: September 26, 2024 (more content not included)... Normal [facility] Renal function 2000 panelon 09-26-2024 Albumin [Mass/Vol] 3.7 g/dL Low 3.9-4.9 [facility] Comment on above: Order Comment: Speci men Type: BLOOD SPECIMENOrdering Facility: [facility] Address: [address] [place] [address] Performed By: #### 2 4362-6 ####[facility] LABCLIA [id number] [place] [id number] [place] Anion gap [Moles/Vol] 14 mmol/L Normal 8-15 [facility] Comment on above: Order Comment: Speci men Type: BLOOD SPECIMENOrdering Facility: [facility] Address: [address] [place] [address] Performed By: #### 2 4362-6 ####[facility] LABCLIA [id number] [place] [id number] [place] Calcium [Mass/Vol] 9.3 mg/dL Normal 8.5-10.2 [facility] Comment on above: Order Comment: Speci men Type: BLOOD SPECIMENOrdering Facility: [facility] Address: [address] [place] [address] Performed By: #### 2 4362-6 ####[facility] LABCLIA [id number] [address] [address] [place] Chloride [Moles/Vol] 104 mmol/L Normal 98-107 [facility] Comment on above: Order Comment: Speci men Type: BLOOD SPECIMENOrdering Facility: [facility] Address: [address] [place] [address] Performed By: #### 2 4362-6 ####[facility] LABCLIA [id number] [place] [id number] [place] CO2 [Moles/Vol] 23 mmol/L Normal 22-30 [facility] Comment on above: Order Comment: Speci men Type: BLOOD SPECIMENOrdering Facility: [facility] Address: [address] [place] [address] Performed By: #### 2 4362-6 ####[facility] LABIA [id number] [address] [place] OF [facility] Creatinine [Mass/Vol] 1.01 mg/dL Normal 0.73-1.22 [facility] Comment on above: Order Comment: Speci men Type: BLOOD SPECIMENOrdering Facility: [facility] Address: [address] [place] [address] Performed By: #### 2 4362-6 ####[facility] LABIA [id number] [address] Creatinine and Glomerular filtration rate.predicted panel (S/P/Bld) 86 mL/min/1.73m??? Normal >=60 [facility] Comment on above: Order Comment: Speci men Type: BLOOD SPECIMENOrdering Facility: [facility] Address: [address] [place] [address] Result Comment: Bianca mated Glomerular Filtration Rate (eGFR) is calculated using the 2020 CKD-EPI creatinine equation. This equation utilizes serum creatinine, sex, and age as parameters. The creatinine assay has traceable calibration to isotope dilution-mass spectrometry. Refer to KDIGO guidelines for clinical interpretation. In patients with unstable renal function, e.g. those with acute kidney injury, the eGFR may not accurately reflect actual GFR. Performed By: #### 2 4362-6 ####[facility] LABCLIA [id number] [place] [id number] [place] Glucose [Mass/Vol] 137 mg/dL High 74-99 [facility] Comment on above: Order Comment: Speci men Type: BLOOD SPECIMENOrdering Facility: [facility] Address: [address] [place] [address] Result Comment: The [place] Diabetes Association (ADA) provides guidance for cutoff values for fasting glucose and random glucose. The ADA defines fasting as no caloric intake for at least 8 hours. Fasting plasma glucose results between 100 to 125 mg/dL indicate increased risk for diabetes (prediabetes). Fasting plasma glucose results greater than or equal to 126 mg/dL meet the criteria for diagnosis of diabetes. In the absence of unequivocal hyperglycemia, results should be confirmed by repeat testing. In a patient with classic symptoms of hyperglycemia or hyperglycemic crisis, random plasma glucose results greater than or equal to 200 mg/dL meet the criteria for diagnosis of diabetes. Reference: Standards of Medical Care in Diabetes 2016, [place] [employer]. Diabetes Care. 2016.39(Suppl 1). Performed By: #### 2 4362-6 ####[facility] LABIA [id number] [place] [id number] [place] Phosphate [Mass/Vol] 3.9 mg/dL Normal 2.7-4.8 [facility] Comment on above: Order Comment: Speci men Type: BLOOD SPECIMENOrdering Facility: [facility] Address: [address] [place] [address] Performed By: #### 2 4362-6 ####[facility] LABIA [id number] [place] [id number] [place] Potassium [Moles/Vol] 3.8 mmol/L Normal 3.7-5.1 [facility] Comment on above: Order Comment: Speci men Type: BLOOD SPECIMENOrdering Facility: [facility] Address: [address] [place] [address] Performed By: #### 2 4362-6 ####[facility] LABIA [id number] [place] [address] [place] Sodium [Moles/Vol] 141 mmol/L Normal 136-144 [facility] Comment on above: Order Comment: Speci men Type: BLOOD SPECIMENOrdering Facility: [facility] Address: [address] [place] [address] Performed By: #### 2 4362-6 ####[facility] LABCLIA [id number] [place] [address] [place] Urea nitrogen [Mass/Vol] 16 mg/dL Normal 9-24 [facility] Comment on above: Order Comment: Speci men Type: BLOOD SPECIMENOrdering Facility: [facility] Address: [address] [place] [address] Performed By: #### 2 4362-6 ####[facility] LABCLIA [id number] [place] [address] [place] Urinalysis complete panel (U )on 09-26-2024 Bacteria LM.HPF (Urine sed) [#/Area] Negative Normal Negative [facility] Comment on above: Order Comment: Speci men Type: URINE SPECIMENOrdering Facility: [facility] Address: [address] [place] [address] Performed By: #### 2 4356-8 ####[facility] LABCLIA [id number] [place] [address] [place] Bilirubin Ql (U) 1+ Abnormal Negative [facility] Comment on above: Order Comment: Speci men Type: URINE SPECIMENOrdering Facility: [facility] Address: [address] [place] [address] Result Comment: Sugg est correlation with clinical findings and serum bilirubin if clinically indicated. Performed By: #### 2 4356-8 ####[facility] LABCLIA [id number] [place] [address] [place] Clarity (Unsp spec) Clear Normal Clear [facility] Comment on above: Order Comment: Speci men Type: URINE SPECIMENOrdering Facility: [facility] Address: [address] [place] [address] Performed By: #### 2 4356-8 ####[facility] LABCLIA [id number] [place] [address] [place] Color (U) Dark Yellow Abnormal Yellow [facility] Comment on above: Order Comment: Speci men Type: URINE SPECIMENOrdering Facility: [facility] Address: [address] [place] [address] Performed By: #### 2 4356-8 ####[facility] LABCLIA [id number] [place] [address] [place] Epithelial cells LM.HPF (Urine sed) [#/Area] None Seen Normal [facility] Comment on above: Order Comment: Speci men Type: URINE SPECIMENOrdering Facility: [facility] Address: [address] [place] [address] Performed By: #### 2 4356-8 ####[facility] LABCLIA [id number] [place] [address] [place] Glucose Test strip (U) [Mass/Vol] Trace Abnormal Negative [facility] Comment on above: Order Comment: Speci men Type: URINE SPECIMENOrdering Facility: [facility] Address: [address] [place] [address] Performed By: #### 2 4356-8 ####[facility] LABCLIA [id number] [place] [address] [place] Hemoglobin Ql (U) Negative Normal Negative [facility] Comment on above: Order Comment: Speci men Type: URINE SPECIMENOrdering Facility: [facility] Address: [address] [place] [address] Performed By: #### 2 4356-8 ####[facility] LABCLIA [id number] [place] [id number] [place] Hyaline casts (Urine sed) [#/Area] 4-10 /LPF Abnormal 0 /LPF [facility] Comment on above: Order Comment: Speci men Type: URINE SPECIMENOrdering Facility: [facility] Address: [address] [place] [address] Performed By: #### 2 4356-8 ####[facility] LABCLIA [id number] [facility] [address] [place] [address] [place] Ketones Ql (U) Trace Abnormal Negative [facility] Comment on above: Order Comment: Speci men Type: URINE SPECIMENOrdering Facility: [facility] Address: [address] [place] [address] Performed By: #### 2 4356-8 ####[facility] LABCLIA [id number] [address], [facility]95 [place] Leukocyte esterase Test strip Ql (U) Negative Normal Negative [facility] Comment on above: Order Comment: Speci men Type: URINE SPECIMENOrdering Facility: [facility] Address: [address] [place] [address] Performed By: #### 2 4356-8 ####[facility] LABCLIA [id number] [address], [facility]95 [place] Nitrite Ql (U) Negative Normal Negative [facility] Comment on above: Order Comment: Speci men Type: URINE SPECIMENOrdering Facility: [facility] Address: [address] [place] [address] Performed By: #### 2 4356-8 ####[facility] LABCLIA [id number] [facility] [address] [place] [address] [place] pH (U) 6.5 [pH] Normal <8.5 [facility] Comment on above: Order Comment: Speci men Type: URINE SPECIMENOrdering Facility: [facility] Address: [address] [place] [address] Performed By: #### 2 4356-8 ####[facility] LABCLIA [id number] [place] [address] [place] Protein (U) [Mass/Vol] 2+ Abnormal Negative [facility] Comment on above: Order Comment: Speci men Type: URINE SPECIMENOrdering Facility: [facility] Address: [address] [place] [address] Performed By: #### 2 4356-8 ####[facility] LABIA [id number] [place] [address] [place] RBC LM.HPF (Urine sed) [#/Area] 0-2 /HPF Normal 0-2 /HPF [facility] Comment on above: Order Comment: Speci men Type: URINE SPECIMENOrdering Facility: [facility] Address: [address] [place] [address] Performed By: #### 2 4356-8 ####[facility] LABIA [id number] [place] [address] [place] Specific gravity (U) [Rel density] 1.035 High 1.005-1.030 [facility] Comment on above: Order Comment: Speci men Type: URINE SPECIMENOrdering Facility: [facility] Address: [address] [place] [address] Performed By: #### 2 4356-8 ####[facility] LABIA [id number] [address] [place] Urobilinogen Ql (U) 1.0 EU/dL Normal 0.2-1.0 EU/dL [facility] Comment on above: Order Comment: Speci men Type: URINE SPECIMENOrdering Facility: [facility] Address: [address] [place] [address] Performed By: #### 2 4356-8 ####[facility] LABCLIA [id number] [place] [address] [place] WBC LM.HPF (Urine sed) [#/Area] 0-5 /HPF Normal 0-5 /HPF [facility] Comment on above: Order Comment: Speci men Type: URINE SPECIMENOrdering Facility: [facility] Address: [address] [place] [address] Performed By: #### 2 4356-8 ####[facility] SHAWIA [id number] [address] [address] [place] CBC panel Auto (Bld)on 09-25 Erythrocyte distribution width (RBC) [Ratio] 12.8 % Normal 11.5-15.0 [facility] Comment on above: Order Comment: Speci men Type: BLOOD SPECIMENOrdering Facility: [facility] Address: [address] [place] [address] Performed By: #### 5 8410-2 ####[facility] [id number] [address] [place] Hematocrit (Bld) [Volume fraction] 41.0 % Normal 39.0-51.0 [facility] Comment on above: Order Comment: Speci men Type: BLOOD SPECIMENOrdering Facility: [facility] Address: [address] [place] [address] Performed By: #### 5 8410-2 ####[facility] [id number] [address] [place] Hemoglobin (Bld) [Mass/Vol] 14.7 g/dL Normal 13.0-17.0 [facility] Comment on above: Order Comment: Speci men Type: BLOOD SPECIMENOrdering Facility: [facility] Address: [address] [place] [address] Performed By: #### 5 8410-2 ####[facility] [id number] [place] [address] [place] MCH (RBC) [Entitic mass] 30.3 pg Normal 26.0-34.0 [facility] Comment on above: Order Comment: Speci men Type: BLOOD SPECIMENOrdering Facility: [facility] Address: [address] [place] [address] Performed By: #### 5 8410-2 ####[facility] LABCLIA [id number] [place] [address] [place] MCHC (RBC) [Mass/Vol] 35.9 g/dL Normal 30.5-36.0 [facility] Comment on above: Order Comment: Speci men Type: BLOOD SPECIMENOrdering Facility: [facility] Address: [address] [place] [address] Performed By: #### 5 8410-2 ####[facility] LABCLIA [id number] [place] [address] [place] MCV (RBC) [Entitic vol] 84.5 fL Normal 80.0-100.0 [facility] Comment on above: Order Comment: Speci men Type: BLOOD SPECIMENOrdering Facility: [facility] Address: [address] [place] [address] Performed By: #### 5 8410-2 ####[facility] LABIA [id number] [place] [address] [place] Nucleated RBC (Bld) [#/Vol] 10*3/uL Normal <0.01 [facility] Comment on above: Order Comment: Speci men Type: BLOOD SPECIMENOrdering Facility: [facility] Address: [address] [place] [address] Performed By: #### 5 8410-2 ####[facility] LABIA [id number] [place] [address] [place] Platelet mean volume (Bld) [Entitic vol] 9.7 fL Normal 9.0-12.7 [facility] Comment on above: Order Comment: Speci men Type: BLOOD SPECIMENOrdering Facility: [facility] Address: [address] [place] [address] Performed By: #### 5 8410-2 ####[facility] LABIA [id number] [address] [place] Platelets (Bld) [#/Vol] 208 10*3/uL Normal 150-400 [facility] Comment on above: Order Comment: Speci men Type: BLOOD SPECIMENOrdering Facility: [facility] Address: [address] [place] [address] Performed By: #### 5 8410-2 ####[facility] LABIA [id number] [place] [address] [place] RBC (Bld) [#/Vol] 4.85 10*6/uL Normal 4.20-6.00 [facility] Comment on above: Order Comment: Speci men Type: BLOOD SPECIMENOrdering Facility: [facility] Address: [address] [place] [address] Performed By: #### 5 8410-2 ####[facility] LABIA [id number] [address] [place] WBC (Bld) [#/Vol] 6.63 10*3/uL Normal 3.70-11.00 [facility] Comment on above: Order Comment: Speci men Type: BLOOD SPECIMENOrdering Facility: [facility] Address: [address] [place] [address] Performed By: #### 5 8410-2 ####[facility] LABIA [id number] [address] [place] CNDSon 09-25-2024 CNDS HNO ID: [id number] Author: FABIANA DUNAWAY MD, PhD Service: Neurology Stroke Author Type: Nurse Practitioner Type: Discharge Summary Filed: 09/30/2024 06:09 Note Text: Attestation signed by Fabiana Dunaway MD, PhD at 09/30/2024 6:09 AM DISCHARGE SUMMARY NEURO STROKE PATIENT NAME: Evangelista Borrego JR ADMISSION DATE: 09/22/2024 DISCHARGE DATE: 09/29/2024 Attending Physician: Fabiana Dunaway MD, PhD PCP: Adriana Shaw MD Code Status: Full Code Highest Readmission Risk Score: 8 The 30 day readmissions risk score is derived from an internally validated risk model which evaluates patient level characteristics, utilization history, medication orders and lab results up until the day of discharge. Patients with a score of 39 or above are considered highest risk for readmission. Specific patient level drivers will be listed at the bottom of the summary. 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 (POA: Yes) Dysphagia (POA: Yes) Cerebrovascular accident (CVA) due to occlusion of left posterior cerebral artery (HCC) (POA: Yes) Essential (primary) hypertension (POA: Yes) Obesity, Class III, BMI >= 40 (POA: Yes) Alteration in self-care ability (POA: Yes) Impaired mobility (POA: Yes) At risk for falls (POA: Yes) Cerebrovascular accident (CVA) (HCC) (POA: Yes) Dysarthria (POA: Yes) Aphasia (POA: Yes) Insulin dose changed (HCC) (POA: Unknown) Resolved Problems: 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cus (HCC) (POA: Yes) Operations During Hospitalization: None Procedures During Hospitalization: MRI and EEG Initial NIHSS Score: 6 Final/Discharge NIHSS Score: 19 Final/Discharge Modified Sheridan Score: 4 - Moderately severe disability - unable to walk without assistance and unable to attend to own bodily needs without assistance Stroke Mechanism: Stroke Mechanism - LIP ENTRY ONLY Ischemic Stroke or TIA: Ischemic Stroke TOAST Mechanism ([facility]F-MODIFIED): Small-Vessel Occlusion ([place]) Stroke Risk Factors: Hypertension Y Coronary Artery Disease NA Diabetes Y Obesity Y Dyslipidemia Y Tobacco Use (Please Update Smoking History) NA Stroke NA Intracranial Aneurysm NA Body Mass Index (BMI) BMI: 44.37 Total Cholesterol (at time of admission) Total Cholesterol, Nonfasting 193 09/22/2024 HDL (at time of admission) HDL Cholesterol, Nonfasting 31 09/22/2024 LDL (at time of admission) LDL Cholesterol, Nonfasting Comment: Unable to calculate due to increased Triglycerides. A Direct LDL Cholesterol measurement will not be performed. If clinically indicated, a fasting Basic Lipid Panel (LIPB) may be ordered. 09/22/2024 HbA1c Hemoglobin A1C (%) Date Value 09/22/2024 9.7 03/13/2013 6.7 Tests/Procedures Performed: CT head non contrast 09/22/2024: left occipital encephalomalacia CTA head and neck 09/22/2024: Left HOUSE SHORER P1 occlusion with distal recanalization MRI brain w/wo contrast 09/23/2024: IMPRESSION: Acute nonhemorrhagic left thalamoperforator territory infarct. Echocardiogram 09/23/2024: CONCLUSIONS: - Technically difficult exam due to suboptimal positioning and body habitus. - Exam indication: Stroke - The left ventricle is normal in size. Left ventricular systolic function is normal. EF = 56 ? 5% (2D 4-ch.) Definity contrast used for endocardial border detection. - The right ventricle is normal in size. Right ventricular systolic function is normal. RV views limited in this study for accurate assessment. - The left atrial cavity is mildly dilated. - The visualized aorta is borderline dilated with a maximal dimension of 3.9 cm. - There are no significant valvular abnormalities. - The patient has not had a prior CC echocardiographic exam for comparison. Bedside EEG monitoring 09/23/2024: Impression: This bedside EEG was recorded from 0124 to 0431 on 09/23/2024 and is suggestive of cortical dysfunction in the left hemisphere and generalized epilepsy. There is also evidence for a mild diffuse encephalopathy. No EEG seizures were seen during this recording. Bedside EEG monitoring 09/24/2024: Impression: This bedside EEG was recorded from 0602 to 1312 on 09/24/2024 and is suggestive of cortical dysfunction in the left hemisphere and generalized epilepsy. There is also evidence for a mild diffuse encephalopathy. No EEG seizures were seen during this recording. Hospital Course: Taken from the initial HANDP written by the resident the [facility] the patient was admitted: Mr. Evangelista Borrego is a 59 yo male with a PMH significant for T2DM, LYLE, HLD, seiz (more content not included)... Normal [facility] CONSULT PROGon 09-25-2024 CONSULT PROG HNO ID: [id number] Author: ROSALIE LANDERS APRN.WARDROBE COORDINATOR Service: Endocrinology Author Type: Nurse Practitioner Type: Consult Progress Note Filed: 09/25/2024 18:32 Note Text: DIABETES CARE TEAM NOTE SERVICE DATE: 09/25/2024 SERVICE TIME: 7:04 AM Subjective Summary of History from Prior Record: Consult Date: 09/23/24 HPI, and DM history and a portion of my Impression and Plan have been copied from Rosalie Landers, AIDEN note on 09/24/24. Today's changes are noted in bold text. My note reflects my medical decision making from today, and my recommendations will be communicated via the Electronic Health Record. Patient with slurred speech, unable to understand him. I called pt's who told me she does not know what medication he takes he was doing his own meds. Information obtained from EMR HPI: Mr. Evangelista Borrego JR is a 59 year old male with a history of Diabetes Mellitus Type 2 hyperglycemia who was admitted on 09/22/2024 for stroke. Past medical history significant for HLD, Generalized anxiety disorder, Mixed hyperlipidemia, Seizures, and Type II Last HbA1c was 9.7 on 09/22/24. He has a family history of diabetes in his brother. He is followed by PCP for his diabetes. DIABETIC COMPLICATIONS: Stoke neuropathy Pre-Admission DM Regimen: per note from Nena Pardo DO on 03/29/2024 Preadmission oral agents: per chart Glimepiride 2mg Metformin XR 750 mg with evening meals Preadmission insulin regimen: None Self Monitoring Blood Glucose: Type of Monitor: freestyle meter from chart Frequency of Monitoring: BG Values: AIC 9.7 Hypoglycemia: unknown INTERVAL HPI: uneventful PERTINENT ROS: Constitutional:nursi ng getting pt out of bed in chair with lift Appetite:Intact GI:no N/V/N Objective PHYSICAL EXAM: BP 157/71 Pulse (!) 57 Temp 36.4 ?C (97.5 ?F) (Oral) Resp 19 Ht 170.2 cm (5' 7) Wt 123.2 kg (271 lb 9.7 oz) SpO2 95% BMI 42.54 kg/m? General Appearance:In no apparent distress Affect: Edema:Lower extremity Breathing unlabored on RA HR on tele 70 Laboratory Results: Glucose (mg/dL) Date Value 09/24/2024 158 03/13/2013 160 Potassium (mmol/L) Date Value 09/24/2024 3.9 03/13/2013 3.9 Sodium (mmol/L) Date Value 09/24/2024 137 03/13/2013 135 Chloride (mmol/L) Date Value 09/24/2024 100 03/13/2013 99 CO2 (mmol/L) Date Value 09/24/2024 24 03/13/2013 23 Creatinine (mg/dL) Date Value 09/24/2024 0.77 03/13/2013 0.70 BUN (mg/dL) Date Value 09/24/2024 11 03/13/2013 16 Anion Gap (mmol/L) Date Value 09/24/2024 13 03/13/2013 13 Calcium (mg/dL) Date Value 03/13/2013 9.3 Calcium, Total (mg/dL) Date Value 09/24/2024 9.5 ALT Date Value Ref Range Status 08/03/2012 27 5 - 50 U/L Final AST Date Value Ref Range Status 08/03/2012 17 7 - 40 U/L Final Hemoglobin (g/dL) Date Value 09/24/2024 15.1 04/02/2013 14.9 Hematocrit (%) Date Value 09/24/2024 41.9 04/02/2013 43.5 WBC (k/uL) Date Value 09/24/2024 6.31 04/02/2013 9.12 Platelet Count (k/uL) Date Value 09/24/2024 233 04/02/2013 248 Hemoglobin A1C (%) Date Value 09/22/2024 9.7 03/13/2013 6.7 LV Ejection Fraction (%) Date Value 09/23/2024 56 Diabetes Management in Hospital Hospital BG values or ranges: Date AM LUNCH DINNER HS 3AM 09/22/2024 186 09/23/2024 262A2 302A4 255A6 [id number] 172A2 161A2 09/24/2024 170A4+2 246A4+4 Pkqqze19 196A4+2 227A4 185A2 09/25/2024 163A2+5 213A5+4 Nfaqij41 160A5+2 Diabetes Management Prior to the Consultation/HPI: Scale #1 AC only Other Pertinent Medications: Continuous Infusion: none Steroids: none Diet: Soft bite sized(L6) mildly thick (L2) nectar Tube Feeding: No Supplements: none Impression/Recommend ations Patient with poorly controlled Diabetes Mellitus Type 2 hyperglycemia s/p stroke whom we have been consulted for glycemic control. Blood Glucose and Labs Reviewed, [id number]. Po intake fair BG high. Will increase basal and prandials for today. Will continue to monitor trends and adjust further as needed. Weight 129.2kg x 0.5= 64.6 units/TDD RECOMMENDATIONS: Increase Basal Insulin: Lantus 20 units every noon Adjust Prandial Insulin: Admelog 5 units AC TID Supplemental Sliding Scale: Admelog Program #2 AC AND HS and 2am Accuchecks: AC/HS and 2 AM Recommend As per Unit Dietitian Endo CDE consulted regarding: AR as of 3/3 DM DISCHARGE PLAN:AR as of 3/3 MDI insulin and oral TBD. Check blood sugars Three times a Day Diet: As per Unit Dietitian Exercise as prescribed by primary team Follow up with director of in service education and color card maker as recommended. Patient will [facility] ([facility]) or with his home grinding operator/PCP in 1-2 weeks after discharge. SIGNATURE: Rosalie Landers APRN.WARDROBE COORDINATOR PATIENT NAME: Evangelista Borrego JR DATE: September 25, 2024 TIME: 7:04 AM PAGER: Inpatient Endo SUPPORT TECHNICIAN fr (more content not included)... Normal [facility] Phenytoin Free SerPl-mCncon 09-25-2024 Phenytoin Free [Mass/Vol] <0.4 Low 1.0-2.0 [facility] Comment on above: Order Comment: Speci men Type: BLOOD SPECIMENOrdering Facility: [facility] Address: [address] [place] [address] Result Comment: Refe rence ranges and high/low indicator flags are provided as general guidelines only. The treating physician must determine appropriate target levels/dosing based on the specific clinical situation. Result rechecked. Performed By: #### 3 969-3 ####[facility] LABCLIA [id number] [facility] [place] [address] [place] Renal function 2000 panelon 09-25-2024 Albumin [Mass/Vol] 3.9 g/dL Normal 3.9-4.9 [facility] Comment on above: Order Comment: Speci men Type: BLOOD SPECIMENOrdering Facility: [facility] Address: [address] [place] [address] Performed By: #### 2 4362-6 ####[facility] LABCLIA [id number] [facility] [place] [id number] [place] Anion gap [Moles/Vol] 12 mmol/L Normal 8-15 [facility] Comment on above: Order Comment: Speci men Type: BLOOD SPECIMENOrdering Facility: [facility] Address: [address] [place] [address] Performed By: #### 2 4362-6 ####[facility] LABCLIA [id number] [facility] [place] [id number] [place] Calcium [Mass/Vol] 9.5 mg/dL Normal 8.5-10.2 [facility] Comment on above: Order Comment: Speci men Type: BLOOD SPECIMENOrdering Facility: [facility] Address: [address] [place] [address] Performed By: #### 2 4362-6 ####[facility] LABCLIA [id number] [facility] [address] [address] [place] Chloride [Moles/Vol] 102 mmol/L Normal 98-107 [facility] Comment on above: Order Comment: Speci men Type: BLOOD SPECIMENOrdering Facility: [facility] Address: [address] [place] [address] Performed By: #### 2 4362-6 ####[facility]IA [id number] [place] [address] [place] CO2 [Moles/Vol] 25 mmol/L Normal 22-30 [facility] Comment on above: Order Comment: Speci men Type: BLOOD SPECIMENOrdering Facility: [facility] Address: [address] [place] [address] Performed By: #### 2 4362-6 ####[facility] [id number] [address] [place] OF [facility] Creatinine [Mass/Vol] 0.92 mg/dL Normal 0.73-1.22 [facility] Comment on above: Order Comment: Speci men Type: BLOOD SPECIMENOrdering Facility: [facility] Address: [address] [place] [address] Performed By: #### 2 4362-6 ####[facility] [id number] [address] Creatinine and Glomerular filtration rate.predicted panel (S/P/Bld) 96 mL/min/1.73m??? Normal >=60 [facility] Comment on above: Order Comment: Speci men Type: BLOOD SPECIMENOrdering Facility: [facility] Address: [address] [place] [address] Result Comment: Bianca mated Glomerular Filtration Rate (eGFR) is calculated using the 2020 CKD-EPI creatinine equation. This equation utilizes serum creatinine, sex, and age as parameters. The creatinine assay has traceable calibration to isotope dilution-mass spectrometry. Refer to KDIGO guidelines for clinical interpretation. In patients with unstable renal function, e.g. those with acute kidney injury, the eGFR may not accurately reflect actual GFR. Performed By: #### 2 4362-6 ####[facility] LABCLIA [id number] [address] [address] [place] Glucose [Mass/Vol] 168 mg/dL High 74-99 [facility] Comment on above: Order Comment: Speci men Type: BLOOD SPECIMENOrdering Facility: [facility] Address: [address] [place] [address] Result Comment: The [place] Diabetes Association (ADA) provides guidance for cutoff values for fasting glucose and random glucose. The ADA defines fasting as no caloric intake for at least 8 hours. Fasting plasma glucose results between 100 to 125 mg/dL indicate increased risk for diabetes (prediabetes). Fasting plasma glucose results greater than or equal to 126 mg/dL meet the criteria for diagnosis of diabetes. In the absence of unequivocal hyperglycemia, results should be confirmed by repeat testing. In a patient with classic symptoms of hyperglycemia or hyperglycemic crisis, random plasma glucose results greater than or equal to 200 mg/dL meet the criteria for diagnosis of diabetes. Reference: Standards of Medical Care in Diabetes 2016, [place] Diabetes Association. Diabetes Care. 2016.39(Suppl 1). Performed By: #### 2 4362-6 ####[facility] LABIA [id number] [place] [id number] [place] Phosphate [Mass/Vol] 4.0 mg/dL Normal 2.7-4.8 [facility] Comment on above: Order Comment: Speci men Type: BLOOD SPECIMENOrdering Facility: [facility] Address: [address] [place], [place] [address] Performed By: #### 2 4362-6 ####[facility] LABIA [id number] [address] [address] [place] Potassium [Moles/Vol] 3.7 mmol/L Normal 3.7-5.1 [facility] Comment on above: Order Comment: Speci men Type: BLOOD SPECIMENOrdering Facility: [facility] Address: [address] [place], [place] [address] Performed By: #### 2 4362-6 ####[facility] LABIA [id number] [place] [address] Sodium [Moles/Vol] 139 mmol/L Normal 136-144 [facility] Comment on above: Order Comment: Speci men Type: BLOOD SPECIMENOrdering Facility: [facility] Address: [address] [place] [address] Performed By: #### 2 4362-6 ####[facility] LABCLIA [id number] [address] [place] Urea nitrogen [Mass/Vol] 14 mg/dL Normal 9-24 [facility] Comment on above: Order Comment: Speci men Type: BLOOD SPECIMENOrdering Facility: [facility] Address: [address] [place] [address] Performed By: #### 2 4362-6 ####[facility] LABIA [id number] [address] THERAPY NTon 09-25-2024 THERAPY NT HNO ID: [id number] Author: JOSE ROSS, [facility]-[employer]PER[employer] Service: Speech/Swallow Author Type: Speech Language Pathologist Type: Therapy (PT/OT/Speech/Resp) Filed: 09/25/2024 17:06 Note Text: Speech Pathology A f/u dysphagia and speech-language visit was attempted this p.m. The pt was sleeping soundly at this time. Will defer visit until tomorrow to optimize pt ability to fully participate. SU[employer]VISOR [employer] discussed this with the pt's RN. Jose Ross M.A., [facility]/[employer] Speech Language Pathologist [phone] Normal [facility] THERAPY NT HNO ID: [id number] Author: ALEXIA VALENTE, PT Service: Physical Therapy Author Type: Physical Therapist Type: Therapy (PT/OT/Speech/Resp) Filed: 09/25/2024 15:13 Note Text: Physical Therapy Treatment Summary SERVICE DATE: 09/25/2024 SERVICE TIME: 1212 to 1315 ROOM: H063[facility] PT 6 Clicks Score: 11 DISCHARGE RECOMMENDATIONS Acute Rehab Recommended Discharge Disposition Due to: Patient requires active, intensive rehabilitation by multiple therapy disciplines. Anticipate the patient will tolerate 3 hours of therapy per day. Anticipated Discharge Needs: Undetermined Recommended Discharge Equipment: To Be Determined ASSESSMENT Response to Therapy Interventions: Good Participation in Activities, On-Track to Achieve Discharge Goals, Improved Tolerance for Activity Pt cleared for PT by RN. Completed STS training from recliner, required max A x2 caregivers for 5 trials. Pt with moderate R lateral lean in standing. Intermittent R knee buckling requiring knee block. Education and ther ex completed in chair drawing attention to R side, exercises completed with total A on R. Upon transfer back to bed with overhead lift, while lying flat/sleeping, pt intermittently desat to 80%s, RN present. Pt continues to demo appropriate activity tolerance and motivation for AR level therapy. PRECAUTIONS Fall Risk CURRENT HOSPITAL COURSE Transfer from OSH for L P1 occlusion. LKW 9 PM on 09/21 when his son dropped him off at a family members house to help care for another family member. He was found laying on the floor by his son with right side weakness and slurred speech today at 5 PM on 09/22. iNIHSS at OSH was 7 for dysarthria, right hemiparesis, and RUE dysmetria. 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 Relevant Past Medical History: T2DM, LYLE, HLD, seizures on phenytoin HOME LIVING Patient Lives With: Family Assistance Available: Other: See Comment Comments: Per pt lives with 2 sons Entry To Home: (Some here and there) PRIOR FUNCTIONAL LEVEL Unable to Report Pt poor historian 2/2 expressive deficits. Able to report no AD use and that he lives with his 2 sons. Reports he has not driven in a while. Denies falls. SUBJECTIVE Agreeable to PT THERAPY DIAGNOSIS Reduced mobility-other, Muscle Weakness (generalized), Abnormalities of gait and mobility-other TREATMENT INTERVENTIONS Therapeutic Activity (25359), Neuromuscular Reeducation (69020), Therapeutic Exercise (95115) Timed Code Treatment (minutes): 63 Skilled Treatment Time (minutes): 63 TRAINING AND EDUCATION PROVIDED Bed Mobility, Discharge Planning, Exercise Program, Expected Functional Level, Patient Exercise/Therapy Program Support Needs, Positioning, Role of Physical Therapy, Sitting Balance, Treatment Protocol, Disease Specific Education, Falls Prevention, Standing Balance, Transfers THERAPEUTIC SKILLS USED Activity Dosing, Assessment of Tolerance Including Vitals Response to Activity, Cues for Sequencing/Proper Technique for Activity, Cuing Tactile, Cuing Verbal, Cuing Visual, Movement Facilitation, Muscle Activation Facilitation, Physical Assist, Teach-Back for Education, Postural Alignment Correction FUNCTIONAL STATUS Bed Mobility Rolling: Modified Independent, Minimal Assistance, Additional Information mod I rolling R, min A rolling L Supine To Sit: Moderate Assistance Sit to Supine: Stand By Assistance Scooting: Contact Guard Assistance Transfers Sit To Stand: Maximal Assistance (x2 caregivers, x5 trials, R knee buckling requiring knee block) Stand To Sit: Maximal Assistance (x2 caregivers) Bed to Chair Total Assistance Bed To Chair Transfer Type: Lift Bed To Chair Transfer Equipment: Dependent Lift Device Gait Stairs GOALS Patient will demonstrate progress to optimize functional mobility, maximize activity tolerance and endurance to maximize function upon discharge. Rehab Potential: Good Progress Toward Goals: Progressing as expected PLAN PT Frequency: 4 Times Per Week Treatment Interventions: Education, Self Care / Home Management, Energy Conservation Training, Strengthening, Functional Mobility Training, Balance Training, Neuromuscular Re-education Plan for Next Visit: Bed Mobility, Sitting Balance, Sit to Stand Transfers, Chair Transfer Training, Pre-gait Activities SIGNATURE: Alexia Valente PT PATIENT NAME: Evangelista Borrego JR DATE: September 25, 2024 TIME: 3:13 PM Normal [facility] THERAPY NT HNO ID: [id number] Author: NYLA PELAYO OT/L Service: Occupational Therapy Author Type: Occupational Therapist Type: Therapy (PT/OT/Speech/Resp) Filed: 09/25/2024 15:40 Note Text: Occupational Therapy Treatment Summary SERVICE DATE: 09/25/2024 SERVICE TIME: 0846 to 0946 ROOM: [place] [address] OT 6 Clicks Score: 14 DISCHARGE RECOMMENDATIONS Acute Rehab Recommended Discharge Disposition Due to: Patient requires active, intensive rehabilitation by multiple therapy disciplines. Anticipate the patient will tolerate 3 hours of therapy per day., ADL impairment, Cognitive deficits new/worsened, Coordination deficits, Functional status decline, Requires multiple therapy disciplines Anticipated Discharge Needs: Undetermined ASSESSMENT Response to Therapy Interventions: Cognitive Deficits, Good Participation in Activities, Needs Frequent Redirection or Reinstruction, Requires Additional Time to Complete Activities Pt drowsy upon OT arrival, initially requiring max verbal/tactile stimulation for sustained alertness, progressing to becoming more awake as session continued. AANDOx1, 4AT (+). Pt presents with decline in function since OT eval s/p acute nonhemorrhagic left thalamoperforator territory infarct 09/23/24. 0/5 strength noted in R UE/LE, R inattention. Pt able to sit EOB with varying min A - SBA and complete 3 sit<>stand transfers with assist x2 caregivers in preparation for OOB ADL engagement. Vitals stable throughout. Pt is an excellent candidate for AR upon d/c to further address functional deficits, optimize neuro recovery and maximize independence with I/ADLs. PRECAUTIONS Fall Risk CURRENT HOSPITAL COURSE Transfer from OSH for L P1 occlusion. LKW 9 PM on 09/21 when his son dropped him off at a family members house to help care for another family member. He was found laying on the floor by his son with right side weakness and slurred speech today at 5 PM on 09/22. iNIHSS at OSH was 7 for dysarthria, right hemiparesis, and RUE dysmetria. 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 Relevant Past Medical History: T2DM, LYLE, HLD, seizures on phenytoin HOME LIVING Patient Lives With: Family Assistance Available: Other: See Comment Comments: Per pt lives with 2 sons Entry To Home: (Some here and there) PRIOR FUNCTIONAL LEVEL Unable to Report Pt poor historian 2/2 expressive deficits. Able to report no AD use and that he lives with his 2 sons. Reports he has not driven in a while. Denies falls. SUBJECTIVE Pt agreeable to OT COGNITION Communication Deficits: Expressive Deficits Orientation Deficits: Not oriented to Time, Not oriented to Place, Not oriented to Situation Responsiveness: Alert, Awake, Drowsy (becoming more alert as session progressed) Follows Commands: 1-step Commands Attention Deficits: (sustained attention) Cog 6 Start of Session Total Points (Max Score = 24): 9 (09/25/24) Cog 6 End of Session Total Points (Max Score = 24): 18 (09/25/24) 4AT Score: (!) 12 (09/25/24) Name of LIP Notified of New Positive 4AT Score: Stephen Perry MD (09/25/24) Delirium Positive/Negative: Positive (09/25/24) Cognitive Activities Performed: reorientation, sustained attention to task, skilled sensory stimulation for sustained arousal/alertness, environmental modifications implemented for delirium reduction, functional object use, 1 step command following, attempts for various communication methods (yes/no, writing, low tech communication board, pointing to written words) to optimize independence with expressing wants/needs THERAPY DIAGNOSIS Reduced mobility-other, Decreased activities of daily living (ADL), Muscle Weakness (generalized), Signs and Symptoms Involving Cognitive Functions and Awareness, Lack of coordination-other TREATMENT INTERVENTIONS Cognitive Training (32172 and 10074), Neuromuscular Reeducation (27975), Self Shelter Management (81537) Timed Code Treatment (minutes): 60 Skilled Treatment Time (minutes): 60 TRAINING AND EDUCATION PROVIDED Activity Adaptation/Compensat ory Strategies, Bed Mobility, Benefits of In-Hospital Mobility, Cognitive Prosthetics, Command Following, Delirium Reduction Techniques, Expected Functional Level, Feeding Tasks, Grooming Tasks, Memory/Attention, Orientation, Patient Exercise/Therapy Program Support Needs, Positioning, Role of Occupational Therapy, Sitting Balance to Improve [place] with ADLs/Self-Care, Standing Balance to Improve [place] with ADLs/Self-Care, Transfer - Sit to Stand, Transfer - Bed to Chair, Visual Scanning/Attention Activities THERAPEUTIC SKILLS USED Activity Dosing, Assessment of Tolerance Including Vitals Response to Activity, Bed in Chair Position, Cues for Sequencing/Proper Technique for Activity, Cuing Tactile, Cuing Verbal, Cuing Visual, Contra-lateral Facilitation, Management of Critical Lines, Tubes and/or Drains, Physical Dwayne (more content not included)... Normal [facility] CBC panel Auto (Bld)on 09-24 Erythrocyte distribution width (RBC) [Ratio] 12.8 % Normal 11.5-15.0 [facility] Comment on above: Order Comment: Speci men Type: BLOOD SPECIMENOrdering Facility: [facility] Address: [address] [place] [address] Performed By: #### 5 8410-2 ####[facility] LABCLIA [id number] [place] [address] [place] Hematocrit (Bld) [Volume fraction] 41.9 % Normal 39.0-51.0 [facility] Comment on above: Order Comment: Speci men Type: BLOOD SPECIMENOrdering Facility: [facility] Address: [address] [place] [address] Performed By: #### 5 8410-2 ####[facility] LABCLIA [id number] [place] [address] [place] Hemoglobin (Bld) [Mass/Vol] 15.1 g/dL Normal 13.0-17.0 [facility] Comment on above: Order Comment: Speci men Type: BLOOD SPECIMENOrdering Facility: [facility] Address: [address] [place] [address] Performed By: #### 5 8410-2 ####[facility] LABIA [id number] [place] [address] [place] MCH (RBC) [Entitic mass] 30.8 pg Normal 26.0-34.0 [facility] Comment on above: Order Comment: Speci men Type: BLOOD SPECIMENOrdering Facility: [facility] Address: [address] [place] [address] Performed By: #### 5 8410-2 ####[facility] [id number] [address] [place] MCHC (RBC) [Mass/Vol] 36.0 g/dL Normal 30.5-36.0 [facility] Comment on above: Order Comment: Speci men Type: BLOOD SPECIMENOrdering Facility: [facility] Address: [address] [place] [address] Performed By: #### 5 8410-2 ####[facility] [id number] [place] [address] [place] MCV (RBC) [Entitic vol] 85.5 fL Normal 80.0-100.0 [facility] Comment on above: Order Comment: Speci men Type: BLOOD SPECIMENOrdering Facility: [facility] Address: [address] [place] [address] Performed By: #### 5 8410-2 ####[facility] LABIA [id number] [place] [address] [place] Nucleated RBC (Bld) [#/Vol] 10*3/uL Normal <0.01 [facility] Comment on above: Order Comment: Speci men Type: BLOOD SPECIMENOrdering Facility: [facility] Address: [address] [place] [address] Performed By: #### 5 8410-2 ####[facility] LABCLIA [id number] [place] [address] [place] Platelet mean volume (Bld) [Entitic vol] 10.1 fL Normal 9.0-12.7 [facility] Comment on above: Order Comment: Speci men Type: BLOOD SPECIMENOrdering Facility: [facility] Address: [address] [place] [address] Performed By: #### 5 8410-2 ####[facility] LABIA [id number] [place] [address] [place] Platelets (Bld) [#/Vol] 233 10*3/uL Normal 150-400 [facility] Comment on above: Order Comment: Speci men Type: BLOOD SPECIMENOrdering Facility: [facility] Address: [address] [place] [address] Performed By: #### 5 8410-2 ####[facility] LABIA [id number] [place] [address] [place] RBC (Bld) [#/Vol] 4.90 10*6/uL Normal 4.20-6.00 [facility] Comment on above: Order Comment: Speci men Type: BLOOD SPECIMENOrdering Facility: [facility] Address: [address] [place] [address] Performed By: #### 5 8410-2 ####[facility] LABIA [id number] [place] [address] [place] WBC (Bld) [#/Vol] 6.31 10*3/uL Normal 3.70-11.00 [facility] Comment on above: Order Comment: Speci men Type: BLOOD SPECIMENOrdering Facility: [facility] Address: [address] [place] [address] Performed By: #### 5 8410-2 ####[facility] LABCLIA [id number] [facility] [address] [place] CONSULTon 09-24-2024 CONSULT HNO ID: [id number] Author: NUSRAT GOTTLIEB PA-C Service: Physical Medicine AND Rehabilitation Author Type: Physician Mold Operator Type: Consults Filed: 09/24/2024 10:40 Note Text: HOSPITAL INITIAL CONSULT: PMANDR SERVICE DATE: 09/24/2024 SERVICE TIME: 9:49 AM REASON FOR CONSULTATION: assessment of rehab service needs and PMANDR Consult Order in patient's chart: Yes, order in chart under separate note Subjective PATIENT'S HOME ADDRESS: [address] [place], [place] [id number] HISTORY: Evangelista Borrego JR is a 59 year old male whose current [facility] admission dates to 09/22/2024. History notes that he was admitted on that date from outside hospital. Mr. Vanessa HIDALGO is being seen at the request of Dr. Dunaway, the [facility] physician of record. He carries the rehabilitation diagnosis of stroke. HPI/CHIEF COMPLAINT: Current location: [facility] 001/H0[facility] Parts of this note may have been copied (in italics) and I have reviewed and edited/updated from a combination of HANDP, progress notes from primary service and/or consulting services notes via chart review: Mr. Evangelista Borrego is a 59 yo male with a PMH significant for T2DM, LYLE, HLD, seizures on phenytoin who presented with RHP and dysarthria to [place] ED on 09/22. LKW 9PM 09/21. He was found to have a left P1 occlusion of unknown chronicity and encephalomalacia in left paramedian occipital lobe on imaging. Transferred to [facility] SDU for further workup and observation. Upon arrival, patient was HDS. Unable to provide reliable medical history due to mild aphasia and moderate-significant dysarthria. iNIHSS 6 (1 RFD, 1 RUE, 1 RUE ataxia, 1 aphasia, 2 dysarthria). No prior history of TIA or stroke. No hx of alcohol or drug abuse. Patient aphasic. Per nursing staff, patient with neuro status change yesterday evening with increased weakness of R side. Prior to hospitalization, he relates a daily activity level that was fully independent at the community level He lives with family. PROJECTED/ ANTICIPATED MEDICATION MANAGEMENT: (Surrogate for cognition/executive/ physical functioning) at discharge from this episode of care: may need assist to order/pay/sort/take meds ALLERGIES No Known Allergies Current Facility-Administere d Medications Medication Dose Route Frequency enoxaparin 40 mg injection (LOVENOX) 40 mg SUBCUTANEOUS q 24 HR NaCl 0.9% iv flush bag 20 mL INTRAVENOUS PRN hydrALAZINE 5-20 mg injection (APRESOLINE) 5-20 mg INTRAVENOUS q 1 H PRN dextrose 15 gram/32 mL 15 g (TRUEPLUS) 15 g ORAL PRN Or glucagon 1 mg injection 1 mg INTRAMUSCULAR PRN Or dextrose 10% iv bolus 12.5 g INTRAVENOUS PRN insulin lispro injection (rapid acting) (ADMElog) SUBCUTANEOUS w MEALS gabapentin 300 mg tab(s) (NEURONTIN) 300 mg ORAL TID OXcarbazepine 150 mg tab(s) (TRILEPTAL) 150 mg ORAL BID phenytoin ER 200 mg cap(s) (DILANTIN) 200 mg ORAL BID And phenytoin ER 100 mg cap(s) (DILANTIN) 100 mg ORAL AT BEDTIME sodium chloride 0.9 % (flush) 2-10 mL (BD POSIFLUSH) 2-10 mL INTRAVENOUS DIRECTED PRN aspirin 81 mg chewable tab(s) 81 mg ORAL DAILY losartan 50 mg tab(s) (COZAAR) 50 mg ORAL DAILY insulin lispro 0-10 Units injection (rapid acting) (ADMElog) 0-10 Units SUBCUTANEOUS AT BEDTIME insulin lispro 0-10 Units injection (rapid acting) (ADMElog) 0-10 Units SUBCUTANEOUS Daily insulin glargine 18 Units pen (long acting) 18 Units SUBCUTANEOUS q NOON insulin lispro 4 Units injection (rapid acting) (ADMElog) 4 Units SUBCUTANEOUS w MEALS atorvastatin 40 mg tab(s) (LIPITOR) 40 mg ORAL/FEEDING TUBE AT BEDTIME PAST MEDICAL HISTORY Diagnosis Date Generalized anxiety disorder Anxiety, Generalized Mixed hyperlipidemia Hyperlipidemia Seizures (HCC) Type II or unspecified type diabetes mellitus without mention of complication, not stated as uncontrolled PAST SURGICAL HISTORY Procedure Laterality Date ANESTHESIA ARTHROSCOPIC PROCEDURE ANKLE [facility] FO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 Normal [facility] CONSULT PROGon 09-24-2024 CONSULT PROG HNO ID: [id number] Author: ROSALIE LANDERS APRN.WARDROBE COORDINATOR Service: Endocrinology Author Type: Nurse Practitioner Type: Consult Progress Note Filed: 09/24/2024 18:06 Note Text: DIABETES CARE TEAM NOTE SERVICE DATE: 09/24/2024 SERVICE TIME: 6:37 AM Subjective Summary of History from Prior Record: Consult Date: 09/23/24 HPI, and DM history and a portion of my Impression and Plan have been copied from Rosalie Landers, AIDEN note on 09/23/24. Today's changes are noted in bold text. My note reflects my medical decision making from today, and my recommendations will be communicated via the Electronic Health Record. Patient with slurred speech, unable to understand him. I called pt's who told me she does not know what medication he takes he was doing his own meds. Information obtained from EMR HPI: Mr. Evangelista Borrego JR is a 59 year old male with a history of Diabetes Mellitus Type 2 hyperglycemia who was admitted on 09/22/2024 for stroke. Past medical history significant for HLD, Generalized anxiety disorder, Mixed hyperlipidemia, Seizures, and Type II Last HbA1c was 9.7 on 09/22/24. He has a family history of diabetes in his brother. He is followed by PCP for his diabetes. DIABETIC COMPLICATIONS: Stoke neuropathy Pre-Admission DM Regimen: per note from Nena Pardo DO on 03/29/2024 Preadmission oral agents: per chart Glimepiride 2mg Metformin XR 750 mg with evening meals Preadmission insulin regimen: None Self Monitoring Blood Glucose: Type of Monitor: freestyle meter from chart Frequency of Monitoring: BG Values: AIC 9.7 Hypoglycemia: unknown INTERVAL HPI: Per nurse had infarct last night EEG in place neuro tse at bedside PERTINENT ROS: Appetite:Intact GI:no N/V had breakfast Objective PHYSICAL EXAM: BP 148/71 Pulse (!) 57 Temp 36.9 ?C (98.4 ?F) (Oral) Resp 26 Ht 170.2 cm (5' 7) Wt 128.5 kg (283 lb 4.7 oz) SpO2 99% BMI 44.37 kg/m? General Appearance:Ill appearing Affect:cooperative HR on tele 72 Breathing unlabored on RA Laboratory Results: Glucose (mg/dL) Date Value 09/24/2024 158 03/13/2013 160 Potassium (mmol/L) Date Value 09/24/2024 3.9 03/13/2013 3.9 Sodium (mmol/L) Date Value 09/24/2024 137 03/13/2013 135 Chloride (mmol/L) Date Value 09/24/2024 100 03/13/2013 99 CO2 (mmol/L) Date Value 09/24/2024 24 03/13/2013 23 Creatinine (mg/dL) Date Value 09/24/2024 0.77 03/13/2013 0.70 BUN (mg/dL) Date Value 09/24/2024 11 03/13/2013 16 Anion Gap (mmol/L) Date Value 09/24/2024 13 03/13/2013 13 Calcium (mg/dL) Date Value 03/13/2013 9.3 Calcium, Total (mg/dL) Date Value 09/24/2024 9.5 ALT Date Value Ref Range Status 08/03/2012 27 5 - 50 U/L Final AST Date Value Ref Range Status 08/03/2012 17 7 - 40 U/L Final Hemoglobin (g/dL) Date Value 09/24/2024 15.1 04/02/2013 14.9 Hematocrit (%) Date Value 09/24/2024 41.9 04/02/2013 43.5 WBC (k/uL) Date Value 09/24/2024 6.31 04/02/2013 9.12 Platelet Count (k/uL) Date Value 09/24/2024 233 04/02/2013 248 Hemoglobin A1C (%) Date Value 09/22/2024 9.7 03/13/2013 6.7 LV Ejection Fraction (%) Date Value 09/23/2024 56 [facility] in Hospital Hospital BG values or ranges: Date AM LUNCH DINNER HS 3AM 09/22/2024 186 09/23/2024 262A2 302A4 255A6 [id number] 172A2 161A2 09/24/2024 170A4+2 246A4+4 [id number] 196A4+2 Diabetes Management Prior to the Consultation/HPI: Scale #1 AC only Other Pertinent Medications: Continuous Infusion: none Steroids: none Diet: Soft bite sized(L6) mildly thick (L2) nectar Tube Feeding: No Supplements: none Impression/Recommend ations Patient with poorly controlled Diabetes Mellitus Type 2 hyperglycemia s/p stroke whom we have been consulted for glycemic control. Blood Glucose and Labs Reviewed. BG improved with adding basal insulin yesterday. Patient had issues with po intake /had swallow evaluation yesterday and diet changed from regular to soft. Will increase basal and add insulin with meals. Will continue to monitor trends Weight 129.2kg x 0.5= 64.6 units/TDD RECOMMENDATIONS: Increase Basal Insulin: Lantus 18 units every noon Start Prandial Insulin: Admelog 4 units AC TID Supplemental Sliding Scale: Admelog Program #2 AC AND HS and 2am Accuchecks: AC/HS and 2 AM Recommend As per Unit Dietitian Endo CDE consulted regarding: AR as of 3 DM DISCHARGE PLAN:AR as of 3/3 MDI insulin and oral TBD. Check blood sugars Three times a Day Diet: As per Unit Dietitian Exercise as prescribed by primary team Follow up with director of in service education and color card maker as recommended. Patient will need [facility] at [facility] ([facility]) or with his home grinding operator/PCP in 1-2 weeks after discharge. SIGNATURE: Rosalie Landers APRN.WARDROBE COORDINATOR PATIENT NAME: Evangelista Borrego JR DATE: September 24, 2024 TIME: 6:38 AM PAGER: (more content not included)... Normal [facility] Renal function 2000 panelon 09-24-2024 Albumin [Mass/Vol] 4.0 g/dL Normal 3.9-4.9 [facility] Comment on above: Order Comment: Speci men Type: BLOOD SPECIMENOrdering Facility: [facility] Address: [address] [place] [address] Performed By: #### 2 4362-6 ####[facility] LABCLIA [id number] [place] [id number] [place] Anion gap [Moles/Vol] 13 mmol/L Normal 8-15 [facility] Comment on above: Order Comment: Speci men Type: BLOOD SPECIMENOrdering Facility: [facility] Address: [address] [place] [address] Performed By: #### 2 4362-6 ####[facility] LABCLIA [id number] [place] [id number] [place] Calcium [Mass/Vol] 9.5 mg/dL Normal 8.5-10.2 [facility] Comment on above: Order Comment: Speci men Type: BLOOD SPECIMENOrdering Facility: [facility] Address: [address] [place] [address] Performed By: #### 2 4362-6 ####[facility] LABCLIA [id number] [facility] [place] [id number] [place] Chloride [Moles/Vol] 100 mmol/L Normal 98-107 [facility] Comment on above: Order Comment: Speci men Type: BLOOD SPECIMENOrdering Facility: [facility] Address: [address] [place] [address] Performed By: #### 2 4362-6 ####[facility] LABCLIA [id number] [facility] [place] [id number] [place] CO2 [Moles/Vol] 24 mmol/L Normal 22-30 [facility] Comment on above: Order Comment: Speci men Type: BLOOD SPECIMENOrdering Facility: [facility] Address: [address] [place] [address] Performed By: #### 2 4362-6 ####[facility] LABIA [id number] [address] [address] [place] Creatinine [Mass/Vol] 0.77 mg/dL Normal 0.73-1.22 [facility] Comment on above: Order Comment: Speci men Type: BLOOD SPECIMENOrdering Facility: [facility] Address: [address] [place] [address] Performed By: #### 2 4362-6 ####[facility] LABIA [id number] [place] [address] [place] Creatinine and Glomerular filtration rate.predicted panel (S/P/Bld) 104 mL/min/1.73m??? Normal >=60 [facility] Comment on above: Order Comment: Speci men Type: BLOOD SPECIMENOrdering Facility: [facility] Address: [address] [place] [address] Result Comment: Bianca mated Glomerular Filtration Rate (eGFR) is calculated using the 2020 CKD-EPI creatinine equation. This equation utilizes serum creatinine, sex, and age as parameters. The creatinine assay has traceable calibration to isotope dilution-mass spectrometry. Refer to KDIGO guidelines for clinical interpretation. In patients with unstable renal function, e.g. those with acute kidney injury, the eGFR may not accurately reflect actual GFR. Performed By: #### 2 4362-6 ####[facility] LABIA [id number] [address] [address] [place] Glucose [Mass/Vol] 158 mg/dL High 74-99 [facility] Comment on above: Order Comment: Speci men Type: BLOOD SPECIMENOrdering Facility: [facility] Address: [address] [place] [address] Result Comment: The [place] Diabetes Association (ADA) provides guidance for cutoff values for fasting glucose and random glucose. The ADA defines fasting as no caloric intake for at least 8 hours. Fasting plasma glucose results between 100 to 125 mg/dL indicate increased risk for diabetes (prediabetes). Fasting plasma glucose results greater than or equal to 126 mg/dL meet the criteria for diagnosis of diabetes. In the absence of unequivocal hyperglycemia, results should be confirmed by repeat testing. In a patient with classic symptoms of hyperglycemia or hyperglycemic crisis, random plasma glucose results greater than or equal to 200 mg/dL meet the criteria for diagnosis of diabetes. Reference: Standards of Medical Care in Diabetes 2016, [place] Diabetes Association. Diabetes Care. 2016.39(Suppl 1). Performed By: #### 2 4362-6 ####[facility] LABCLIA [id number] [place] [address] [place] Phosphate [Mass/Vol] 3.7 mg/dL Normal 2.7-4.8 [facility] Comment on above: Order Comment: Speci men Type: BLOOD SPECIMENOrdering Facility: [facility] Address: [address] [place] [address] Performed By: #### 2 4362-6 ####[facility] LABCLIA [id number] [place] [id number] [place] Potassium [Moles/Vol] 3.9 mmol/L Normal 3.7-5.1 [facility] Comment on above: Order Comment: Speci men Type: BLOOD SPECIMENOrdering Facility: [facility] Address: [address] [place] [address] Performed By: #### 2 4362-6 ####[facility] LABCLIA [id number] [facility] [place] [id number] [place] Sodium [Moles/Vol] 137 mmol/L Normal 136-144 [facility] Comment on above: Order Comment: Speci men Type: BLOOD SPECIMENOrdering Facility: [facility] Address: [address] [place] [address] Performed By: #### 2 4362-6 ####[facility] LABCLIA [id number] [place] [id number] [place] [facility] Urea nitrogen [Mass/Vol] 11 mg/dL Normal 9-24 [facility] Comment on above: Order Comment: Speci men Type: BLOOD SPECIMENOrdering Facility: [facility] Address: [address] [place] [address] Performed By: #### 2 4362-6 ####[facility] LABCLIA [id number] [place] [id number] [facility] THERAPY NTon 09-24-2024 THERAPY NT HNO ID: [id number] Author: NYLA PELAYO OT/L Service: Occupational Therapy Author Type: Occupational Therapist Type: Therapy (PT/OT/Speech/Resp) Filed: 09/24/2024 14:24 Note Text: OCCUPATIONAL THERAPY MISSED VISIT SERVICE DATE: 09/24/2024 SERVICE TIME: 1117 ROOM: [place] [address] Patient not seen due to Patient Not Available. OT will follow up as able. SIGNATURE: Nyla Pelayo OT/Odalys PATIENT NAME: Evangelista Borrego JR DATE: September 24, 2024 TIME: 2:23 PM Normal [facility] THERAPY NT HNO ID: [id number] Author: ALEXIA VALENTE, PT Service: Physical Therapy Author Type: Physical Therapist Type: Therapy (PT/OT/Speech/Resp) Filed: 09/24/2024 12:16 Note Text: Physical Therapy Treatment Summary SERVICE DATE: 09/24/2024 SERVICE TIME: 1106 to 1155 (-9 min non-billable time) ROOM: [place] [address] PT 6 Clicks Score: 10 DISCHARGE RECOMMENDATIONS Acute Rehab Recommended Discharge Disposition Due to: Patient requires active, intensive rehabilitation by multiple therapy disciplines. Anticipate the patient will tolerate 3 hours of therapy per day. Anticipated Discharge Needs: Undetermined Recommended Discharge Equipment: To Be Determined ASSESSMENT Response to Therapy Interventions: Progression of Disease Process Pt cleared for PT by RN. Seen this date following acute nonhemorrhagic left thalamoperforator territory infarct 09/23/24. Decline in function since PT eval 09/23. No muscle activation on RUE, trace muscle activation of R hip flexors/ABD during bed mobility trials though pt unable to reproduce following command. Max A to pull to long sit in bed. Consistently following simple verbal commands throughout session. Engaged in supine ther ex to promote muscle activation and attention to R side. Multiple rounds of bed mobility for nakia-care. Maintain rec for AR as pt with additional sharp functional decline. PRECAUTIONS Fall Risk CURRENT HOSPITAL COURSE Transfer from OSH for L P1 occlusion. LKW 9 PM on 09/21 when his son dropped him off at a family members house to help care for another family member. He was found laying on the floor by his son with right side weakness and slurred speech today at 5 PM on 09/22. iNIHSS at OSH was 7 for dysarthria, right hemiparesis, and RUE dysmetria. 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 Relevant Past Medical History: T2DM, LYLE, HLD, seizures on phenytoin HOME LIVING Patient Lives With: Family Assistance Available: Other: See Comment Comments: Per pt lives with 2 sons Entry To Home: (Some here and there) PRIOR FUNCTIONAL LEVEL Unable to Report Pt poor historian 2/2 expressive deficits. Able to report no AD use and that he lives with his 2 sons. Reports he has not driven in a while. Denies falls. SUBJECTIVE Agreeable to PT THERAPY DIAGNOSIS Reduced mobility-other, Muscle Weakness (generalized), Unsteadiness on feet, Abnormalities of gait and mobility-other TREATMENT INTERVENTIONS Therapeutic Activity (42206), Therapeutic Exercise (32863) Timed Code Treatment (minutes): 40 Skilled Treatment Time (minutes): 40 TRAINING AND EDUCATION PROVIDED Bed Mobility, Discharge Planning, Exercise Program, Expected Functional Level, Patient Exercise/Therapy Program Support Needs, Positioning, Role of Physical Therapy, Sitting Balance, Treatment Protocol THERAPEUTIC SKILLS USED Activity Dosing, Assessment of Tolerance Including Vitals Response to Activity, Cues for Sequencing/Proper Technique for Activity, Cuing Tactile, Cuing Verbal, Cuing Visual, Movement Facilitation, Muscle Activation Facilitation, Physical Assist, Teach-Back for Education FUNCTIONAL STATUS Bed Mobility Rolling: Modified Independent, Minimal Assistance, Additional Information mod I rolling R, min A rolling L Supine To Sit: Moderate Assistance Sit to Supine: Stand By Assistance Scooting: Contact Guard Assistance Transfers Sit To Stand: Minimal Assistance Stand To Sit: Minimal Assistance Bed to Chair Moderate Assistance Bed To Chair Transfer Type: Stepping Bed To Chair Transfer Equipment: Gait Belt Gait Stairs GOALS Patient will demonstrate progress to optimize functional mobility, maximize activity tolerance and endurance to maximize function upon discharge. Rehab Potential: Good Progress Toward Goals: Progressing as expected PLAN PT Frequency: 4 Times Per Week Treatment Interventions: Education, Self Care / Home Management, Energy Conservation Training, Strengthening, Functional Mobility Training, Balance Training, Neuromuscular Re-education Plan for Next Visit: Bed Mobility, Sitting Balance, Sit to Stand Transfers, Chair Transfer Training, Pre-gait Activities SIGNATURE: Alexia Valente, PT PATIENT NAME: Evangelista Borrego JR DATE: September 24, 2024 TIME: 12:15 PM Normal [facility] 10OH-Carbazepine SerPl-mCnco n 09-23-2024 10-Hydroxycarbazepine [Mass/Vol] <0.5 Low 3.0-35.0 [facility] Comment on above: Order Comment: Speci men Type: BLOOD SPECIMENOrdering Facility: [facility] Address: [address] [place] [address] Result Comment: This test was developed, and its performance characteristics determined by the [facility] Department of Pathology and Laboratory Medicine. It has not been cleared or approved by the FDA. The [facility] Department of Pathology and Laboratory Medicine is regulated under CLIA as qualified to perform high-complexity testing. This test is used for clinical purposes. It should not be regarded as investigational or for research. Performed By: #### 3 1019-3 ####[facility] LABCLIA [id number] [place] [address] [place] ALLIED HEALTHon 09-23-2024 ALLIED HEALTH HNO ID: [id number] Author: NOA MEDEIROS RT(R) Service: ? Author Type: Technologist Type: Allied Health Filed: 09/23/2024 22:22 Note Text: Radiology Service Progress Note PATIENT NAME: Evangelista Borrego JR DATE OF SERVICE: September 23, 2024 TIME: 10:22 PM PATIENT IDENTITY VERIFICATION COMPLETED USING TWO (2) IDENTIFIERS: Name and Date of confirmed by patient verbally and Name and Date of confirmed by identification band. FALL SCREENING: Has the patient had 2 falls in the last year or 1 fall with injury or currently using an Ambulatory Assistive Device (Walker, Cane, Wheelchair, Crutches, etc.)? Inpatient: Screened on floor PATIENT GENDER DATA: Assigned male at PATIENT RELEVANT IMPLANT DATA REVIEWED: Yes PATIENT PRESENTS WITH AN IMPLANTABLE OR ATTACHED CLINICAL APPLICATIONS SPECIALIST: No RADIOLOGY DEPARTMENT: MR; Exam(s) Completed: Head: Routine Brain PERIPHERAL IV DATA: Inpatient: see LDA documentation SIGNED BY: RT Shoshana(R) September 23, 2024 10:22 PM Normal [facility] CBC panel Auto (Bld)on 09-23 Erythrocyte distribution width (RBC) [Ratio] 12.7 % Normal 11.5-15.0 [facility] Comment on above: Order Comment: Speci men Type: BLOOD SPECIMENOrdering Facility: [facility] Address: [address] [place] [address] Performed By: #### 5 8410-2 ####[facility] [id number] [place] [address] [place] Hematocrit (Bld) [Volume fraction] 40.7 % Normal 39.0-51.0 [facility] Comment on above: Order Comment: Speci men Type: BLOOD SPECIMENOrdering Facility: [facility] Address: [address] [place] [address] Performed By: #### 5 8410-2 ####[facility] LABIA [id number] [place] [address] [place] Hemoglobin (Bld) [Mass/Vol] 14.5 g/dL Normal 13.0-17.0 [facility] Comment on above: Order Comment: Speci men Type: BLOOD SPECIMENOrdering Facility: [facility] Address: [address] [place] [address] Performed By: #### 5 8410-2 ####[facility] LABIA [id number] [place] [address] [place] MCH (RBC) [Entitic mass] 30.0 pg Normal 26.0-34.0 [facility] Comment on above: Order Comment: Speci men Type: BLOOD SPECIMENOrdering Facility: [facility] Address: [address] [place] [address] Performed By: #### 5 8410-2 ####[facility] LABIA [id number] [place] [address] [place] MCHC (RBC) [Mass/Vol] 35.6 g/dL Normal 30.5-36.0 [facility] Comment on above: Order Comment: Speci men Type: BLOOD SPECIMENOrdering Facility: [facility] Address: [address] [place] [address] Performed By: #### 5 8410-2 ####[facility] LABIA [id number] [place] [address] [place] MCV (RBC) [Entitic vol] 84.3 fL Normal 80.0-100.0 [facility] Comment on above: Order Comment: Speci men Type: BLOOD SPECIMENOrdering Facility: [facility] Address: [address] [place] [address] Performed By: #### 5 8410-2 ####[facility] LABIA [id number] [place] [address] [place] Nucleated RBC (Bld) [#/Vol] 10*3/uL Normal <0.01 [facility] Comment on above: Order Comment: Speci men Type: BLOOD SPECIMENOrdering Facility: [facility] Address: [address] [place] [address] Performed By: #### 5 8410-2 ####[facility] LABIA [id number] [place] [address] [place] Platelet mean volume (Bld) [Entitic vol] 10.0 fL Normal 9.0-12.7 [facility] Comment on above: Order Comment: Speci men Type: BLOOD SPECIMENOrdering Facility: [facility] Address: [address] [place] [address] Performed By: #### 5 8410-2 ####[facility] LABCLIA [id number] [place] [address] [place] Platelets (Bld) [#/Vol] 230 10*3/uL Normal 150-400 [facility] Comment on above: Order Comment: Speci men Type: BLOOD SPECIMENOrdering Facility: [facility] Address: [address] [place] [address] Performed By: #### 5 8410-2 ####[facility] [id number] [place] [address] [place] RBC (Bld) [#/Vol] 4.83 10*6/uL Normal 4.20-6.00 [facility] Comment on above: Order Comment: Speci men Type: BLOOD SPECIMENOrdering Facility: [facility] Address: [address] [place] [address] Performed By: #### 5 8410-2 ####[facility] [id number] [place] [address] [place] WBC (Bld) [#/Vol] 7.10 10*3/uL Normal 3.70-11.00 [facility] Comment on above: Order Comment: Speci men Type: BLOOD SPECIMENOrdering Facility: [facility] Address: [address] [place] [address] Performed By: #### 5 8410-2 ####[facility] [id number] [place] [id number] [place] CONSULTon 09-23-2024 CONSULT HNO ID: [id number] Author: SHERRIE PANDA APRN.WARDROBE COORDINATOR Service: Physical Medicine AND Rehabilitation Author Type: Nurse Practitioner Type: Consults Filed: 09/23/2024 16:54 Note Text: PMANDR consult received today. Chart reviewed. Evaluation with PMANDR to follow Monday. Thank you for the consult. Please call with any questions. Current location: [place] [id number] Sherrie Panda APRN.WARDROBE COORDINATOR Physical Medicine and Rehabilitation pager [phone] Normal [facility] CONSULT HNO ID: [id number] Author: ROSALIE LANDERS APRN.TUCKER Service: Endocrinology Author Type: Nurse Practitioner Type: Consults Filed: 09/23/2024 18:34 Note Text: INITIAL CONSULT ENDOCRINOLOGY SERVICE DATE: 09/23/2024 SERVICE TIME: 12:45 PM Requesting Provider: Megan Corral DO Opinion/Advice Regarding: Management of Diabetes Mellitus Type 2 hyperglycemia Service: DCT (Diabetes Care Team) Subjective Patient with slurred speech, unable to understand him. I called pt's who told me she does not know what medication he takes he was doing his own meds. Information obtained from EMR HPI: Mr. Evangelista Borrego JR is a 59 year old male with a history of Diabetes Mellitus Type 2 hyperglycemia who was admitted on 09/22/2024 for stroke. Past medical history significant for HLD, Generalized anxiety disorder, Mixed hyperlipidemia, Seizures, and Type II Last HbA1c was 9.7 on 09/22/24. He has a family history of diabetes in his brother. He is followed by PCP for his diabetes. DIABETIC COMPLICATIONS: Stoke neuropathy Pre-Admission DM Regimen: per note from Nena Pardo DO on 03/29/2024 Preadmission oral agents: per chart Glimepiride 2mg Metformin XR 750 mg with evening meals Preadmission insulin regimen: None Self Monitoring Blood Glucose: Type of Monitor: freestyle meter from chart Frequency of Monitoring: BG Values: AIC 9.7 Hypoglycemia: unknown PAST MEDICAL HISTORY Diagnosis Date Generalized anxiety disorder Anxiety, Generalized Mixed hyperlipidemia Hyperlipidemia Seizures (HCC) Type II or unspecified type diabetes mellitus without mention of complication, not stated as uncontrolled PAST SURGICAL HISTORY Procedure Laterality Date ANESTHESIA ARTHROSCOPIC PROCEDURE [facility] FO[facility]TRANSPOS MEDIAN NRV CARPAL TUNNE Carpal tunnel decomp FAMILY HISTORY Problem Relation Age of Onset Cancer Mother other (UNKNOWN [Other]) Father Diabetes Brother Social History Tobacco Use Smoking status: Never Smokeless tobacco: Never Substance Use Topics Alcohol use: No Drug use: No MEDICATIONS: OXcarbazepine 600 mg tablet, Take 1 tablet by mouth twice daily., Disp: 60 tablet, Rfl: 5, 09/21/2024 phenytoin SR (DILANTIN) 100 mg ER capsule, 3 capsules twice daily., Disp: 180 capsule, Rfl: 5, 09/21/2024 cyclobenzaprine (FLEXERIL) 10 mg tablet, Take 10 mg by mouth three times daily as needed. for Muscle Spasm, Disp: , Rfl: , Unknown gabapentin (NEURONTIN) 600 mg tablet, Take 600 mg by mouth., Disp: , Rfl: , Unknown COMPOUNDED PRESCRIPTION, Knee High Compression Stockings 20-30 mm, DX: Edema and venous insufficiency, Disp: 4 Each, Rfl: 0, Unknown meloxicam 15 mg tablet, Take 1 tablet by mouth once daily. Take with food., Disp: 30 tablet, Rfl: 2, Unknown metFORMIN (GLUCOPHAGE) 850 mg tablet, Take one(1) tablet twice daily., Disp: 60 tablet, Rfl: 11, Unknown Blood-Glucose Meter (FREESTYLE LITE METER) monitoring kit, Use as instructed., Disp: 1 Each, Rfl: 0, Unknown blood sugar diagnostic (FREESTYLE LITE STRIPS) test strip, Use as instructed., Disp: 50 Strip, Rfl: 0, Unknown Current Facility-Administere d Medications Medication Dose Route Frequency enoxaparin 40 mg injection (LOVENOX) 40 mg SUBCUTANEOUS q 24 HR NaCl 0.9% iv flush bag 20 mL INTRAVENOUS PRN hydrALAZINE 5-20 mg injection (APRESOLINE) 5-20 mg INTRAVENOUS q 1 H PRN dextrose 15 gram/32 mL 15 g (TRUEPLUS) 15 g ORAL PRN Or glucagon 1 mg injection 1 mg INTRAMUSCULAR PRN Or dextrose 10% iv bolus 12.5 g INTRAVENOUS PRN insulin lispro injection (rapid acting) (ADMElog) SUBCUTANEOUS w MEALS gabapentin 300 mg tab(s) (NEURONTIN) 300 mg ORAL TID OXcarbazepine 150 mg tab(s) (TRILEPTAL) 150 mg ORAL BID phenytoin ER 200 mg cap(s) (DILANTIN) 200 mg ORAL BID And phenytoin ER 100 mg cap(s) (DILANTIN) 100 mg ORAL AT BEDTIME iv contrast (radiology procedure) INTRAVENOUS DIRECTED PRN sodium chloride 0.9 % (flush) 2-10 mL (BD POSIFLUSH) 2-10 mL INTRAVENOUS DIRECTED PRN And perflutren lipid microspheres 1.1 mg/mL 1.3 mL injection (DEFINITY) 1.3 mL INTRAVENOUS DIRECTED PRN atorvastatin 20 mg tab(s) (LIPITOR) 20 mg ORAL/FEEDING TUBE AT BEDTIME aspirin 81 mg chewable tab(s) 81 mg ORAL DAILY losartan 50 mg tab(s) (COZAAR) 50 mg ORAL DAILY ALLERGIES No Known Allergies COMPLETE REVIEW OF SYSTEMS: Patien unable to provide information Objective PHYSICAL EXAM: BP 169/79 Pulse (!) 57 Temp 36.7 ?C (98 ?F) (Oral) Resp 21 Ht 170.2 cm (5' 7) Wt 129.2 kg (284 lb 13.4 oz) SpO2 95% BMI 44.61 kg/m? Body mass index is 44.61 kg/m?. Appearance: obese, alert, slurred speech Eyes: conjunctiva and sclera normal Neck: Supple, Heart: RRR Breathing unlabored on RA Abdomen soft, non-tender Extremities: No deformities, edema, Neuro: Awake, alert and No involuntary motions/EEG monitoring Feet: No ulcers, callus (more content not included)... Normal [facility] [facility] in LDL Direct as say [Mass/Vol]on 09-23-2024 Cholesterol in LDL [Mass/Vol] 76 mg/dL Normal <100 [facility] Comment on above: Order Comment: Speci men Type: BLOOD SPECIMENOrdering Facility: [facility] Address: [address] [place] [address] Result Comment: <100 mg/dL, Optimal 100-129 mg/dL, Near optimal/above optimal 130-159 mg/dL, Borderline high 160-189 mg/dL, High >189 mg/dL, Very high Secondary prevention optimal LDL Cholesterol levels are recommended to be < 70 mg/dL Performed By: #### 1 8262-6, 16228-9 ####[facility] LABCLIA [id number] [place] [address] [place] ECG COMPLETEon 09-23-2024 ECG COMPLETE Ventricular Rate : 56 BPM Atrial Rate : 56 BPM P-R Interval : 196 ms QRS Duration : 112 ms Q-T Interval : 444 ms QTC Calculation(Bazett) : 428 ms Calculated P Bybee : 28 degrees Calculated R Bybee : -44 degrees Calculated T Bybee : -18 degrees SINUS BRADYCARDIA LEFT AXIS DEVIATION MINIMAL VOLTAGE CRITERIA FOR LVH, MAY BE NORMAL VARIANT ( Gates product ) INFERIOR MYOCARDIAL INFARCTION , AGE UNDETERMINED ABNORMAL ECG Confirmed by LAMONT LAGOS MD ([id number]) on 10/09/2024 7:33:53 AM NAME : EVANGELISTA BORREGO JR PID : [id number] : 1965 Gender : Male Race : ORD : [id number] Procedure Date : Sep 23 2024 00:24:32 Edit Date : Oct 09 2024 07:33:54 Diagnosis: SINUS BRADYCARDIA LEFT AXIS DEVIATION MINIMAL VOLTAGE CRITERIA FOR LVH, MAY BE NORMAL VARIANT ( Blair product ) INFERIOR MYOCARDIAL INFARCTION , AGE UNDETERMINED ABNORMAL ECG Confirmed by LAMONT LAGOS MD ([id number]) on 10/09/2024 7:33:53 AM Test Reason : Stroke Location : 123 : H63 H063-01 Overread By : LAMONT LAGOS MD Edited By : LAMONT LAGOS MD Referred By : CASSIE SMITH Acquired by : CASSY GRIGSBY [facility] ECHOon 09-23-2024 Echocardiography Echocardiography Report: Transthoracic Echo [facility] Bedside Date of service: 09/23/2024 1:43:40 PM 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 EVANGELISTA BORREGO JR : 1965 Age: 59 years Gender: M History of diabetes mellitus and dyslipidemia. Primary rhythm: sinus. Height: 170.20 cm BSA: 2.48 m Weight: 130.09 kg BMI: 44.9 kg/m Heart rate 55 bpm Blood pressure 179/83 mmHg Technically difficult exam due to suboptimal positioning and body habitus. Color Doppler was utilized to interrogate the cardiac valves assessed and spectral Doppler was utilized to determine the flow velocities and pressure gradients reported in this exam. MEASUREMENTS: Value Indexed Normal Max aortic dimension 3.9 cm Ao < 3.8 Left atrial volume 80 ml (4ch A-L) 34 ml/m Jose A <= 34 LV stroke volume 60 ml (2D 4-ch.) LV end diastolic volume 107 ml (2D 4-ch.) 43.1 ml/m 34<=EDVi<75 LV end systolic volume 47 ml (2D 4-ch.) 19.0 ml/m Ejection Fraction 56 % (2D 4-ch.) EF > 52 FINDINGS: LEFT VENTRICLE The left ventricle is normal in size. Left ventricular systolic function is normal regionally. Left ventricular diastolic function was not evaluated due to inconsistent or technically suboptimal data. Mitral annular lateral E/e': 7.4. Mitral annular septal E/e': 8.3. Definity contrast used for endocardial border detection. Wall Motion: All scored segments are normal. RIGHT VENTRICLE The right ventricle is unseen or not interrogated. The right ventricle is normal in size. Right ventricular systolic function is normal. RV systolic tissue Doppler velocity is 15.0 cm/s. Estimated right ventricular systolic pressure is not reported due to an insufficient tricuspid regurgitation signal. Estimated right atrial pressure is 8 mmHg based on IVC assessment. LEFT ATRIUM The left atrial cavity is mildly dilated. RIGHT ATRIUM The right atrial cavity is normal in size. Unable to reliably measure RA volume due to technical limitations. Inferior Vena Cava: The inferior vena cava appears dilated measuring 2.2 cm. The vessel decreases greater than 50 percent with inspiration. MITRAL VALVE The mitral valve leaflets are structurally normal. There is trace mitral valve regurgitation. The pressure half time is 66 msec. The peak mitral E/A ratio is 1.13. The average mitral E/e' ratio is 7.9. The mitral flow deceleration time is 227 msec. TRICUSPID VALVE There is trace tricuspid valve regurgitation. There is no thickening. AORTIC VALVE There is no aortic valve regurgitation. There is no thickening. The peak gradient is 6 mmHg (peak velocity = 117.8 cm/s). PULMONIC VALVE The pulmonic valve was not seen or not interrogated. There is no pulmonic valve regurgitation. AORTA The visualized aorta is borderline dilated. Measurements - Sinus: 3.6 cm. Mid ascending aorta 3.9 cm. Distal ascending aorta 3.3 cm. PULMONARY ARTERIES The pulmonary arteries are unseen or not interrogated. PERICARDIUM There is no pericardial effusion. There is an epicardial fat pad. CONCLUSIONS: - Technically difficult exam due to suboptimal positioning and body habitus. - Exam indication: Stroke - The left ventricle is normal in size. Left ventricular systolic function is normal. EF = 56 5% (2D 4-ch.) Definity contrast used for endocardial border detection. - The right ventricle is normal in size. Right ventricular systolic function is normal. RV views limited in this study for accurate assessment. - The left atrial cavity is mildly dilated. - The visualized aorta is borderline dilated with a maximal dimension of 3.9 cm. - There are no significant valvular abnormalities. - The patient has not had a prior CC echocardiographic exam for comparison. * * * Final * * * [facility] [employer] [facility] : [id number] Normal [facility] MRI BRAIN WO/W IVCONon 09-23 MRI BRAIN WO/W IVCON * * *Final Report* * * DATE OF EXAM: Sep 23 2024 10:45PM Q 0295 - MRI BRAIN WO/W IVCON / PROCEDURE REASON: Stroke, follow up * * * * Physician Interpretation * * * * COMPARISONS: Head CT from 09/22/2024. HISTORY: Stroke. TECHNIQUE: MRI brain without and with contrast. MQ: [id number]_2 CONTRAST: 20 mL Dotarem IV. RESULT: MRI BRAIN: Acute abnormality: Left deep parsons nuclei acute nonhemorrhagic infarct. True restricted diffusion at anterior aspect of left thalamus and anterior aspect of posterior limb of left internal capsule with T2 hyperintensity and local mass effect with indentation on third ventricle without obstructive hydrocephalus or abnormal susceptibility compatible with nonhemorrhagic acute infarct in HOUSE SHORER perforating vessel distribution (correlate with history and CTA results). 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 Additional allowing for difference in modality stable senescent volume loss and microvascular ischemia is noted without additional acute intracranial abnormality. On contrast no abnormal enhancement in brain or meninges. 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 Wool Merchant: LILO Transcribe Date/Time: Sep 23 2024 10:46P Dictated by : ROHIT OROURKE MD This examination was interpreted and the report reviewed and electronically signed by: ROHIT OROURKE MD on Sep 23 2024 10:49PM EST [id number] Normal [facility] NURSING PROGon 09-23-2024 NURSING PROG HNO ID: [id number] Author: SHIREEN VAUGHAN, EFRAIN Service: Nursing Author Type: Registered Nurse Type: Nursing Progress Note Filed: 09/23/2024 22:07 Note Text: Radiology Service Progress Note DATE OF SERVICE: September 23, 2024 TIME: 10:06 PM PATIENT WEIGHT: 284LBS PATIENT IDENTITY VERIFICATION COMPLETED USING TWO (2) STANDARD IDENTIFIERS: Name and Date of confirmed by patient verbally and Name and Date of confirmed by identification band. FALL SCREENING: Has the patient had 2 falls in the last year or 1 fall with injury or currently using an Ambulatory Assistive Device (Walker, Cane, Wheelchair, Crutches, etc.)? Inpatient: Screened on floor PATIENT GENDER DATA: Assigned male at ALLERGIES: Reviewed and unchanged CONTRAST ALLERGY: No EXAM: MRI - CONTRAST TYPE: GROUP II IV SITE: Inpatient - refer to LDA documentation IV SITE APPEARANCE: Clean,Dry and Intact SIGNATURE: Shireen Vaughan RN PATIENT NAME: Evangelista Borrego JR DATE: September 23, 2024 TIME: 10:06 PM Normal [facility] NURSING PROG HNO ID: [id number] Author: SHWETA DUNN RN Service: Nursing Author Type: Registered Nurse Type: Nursing Progress Note Filed: 09/23/2024 19:31 Note Text: Upon 1800 assessment patient noted to have significant weakness in RUE and RLE as well as right facial droop. Pt unable to lift RUE or RLE antigravity, wiggle toes or squeeze nurses hand. Dysarthria also noted to be worse than before. BP retaken, VSS. BEM button pushed. [phone] paged, Stephen Perry called RNs Katie and stated he was on his way up from the ED and arrived shortly after. He completed his own exam, after a few minuets pt able to lift RUE slightly off the bed, and RLE movement still very limited. Pt was laid flat to help with perfusion. This RN called MRI to see when patient may be able to come down for ordered MRI. Spoke with MRI nurse who stated he could be brought down next in the line up if BEM was taken off shortly. Message relayed to Stephen Perry, who stated he would let me know when BEM check was completed, if pt was seizure free they would proceed with removing EEG leads and prioritize MRI. Team aware that patient exam is fluctuating regarding strength in RUE and RLE - no new orders at this time. 1920 messaged by Stephen Perry DO that EEG read was negative and okay to proceed with MRI - EEG paged to remove leads, MRI notified. Normal [facility] Phenytoin Free SerPl-mCncon 09-23-2024 Phenytoin Free [Mass/Vol] <0.4 Low 1.0-2.0 [facility] Comment on above: Order Comment: Speci men Type: BLOOD SPECIMENOrdering Facility: [facility] Address: [address] [place] [address] Result Comment: Refe rence ranges and high/low indicator flags are provided as general guidelines only. The treating physician must determine appropriate target levels/dosing based on the specific clinical situation. Result rechecked. Performed By: #### 3 969-3 ####[facility] LABIA [id number] [place] [address] [place] Renal function 2000 panelon 09-23-2024 Albumin [Mass/Vol] 4.0 g/dL Normal 3.9-4.9 [facility] Comment on above: Order Comment: Speci men Type: BLOOD SPECIMENOrdering Facility: [facility] Address: [address] [place] [address] Performed By: #### 1 8262-6, 88729-1 ####[facility] LABIA [id number] [place] [address] [place] Anion gap [Moles/Vol] 14 mmol/L Normal 8-15 [facility] Comment on above: Order Comment: Speci men Type: BLOOD SPECIMENOrdering Facility: [facility] Address: [address] [place] [address] Performed By: #### 1 8262-6, 52066-8 ####[facility] LABIA [id number] [place] [id number] [place] Calcium [Mass/Vol] 9.1 mg/dL Normal 8.5-10.2 [facility] Comment on above: Order Comment: Speci men Type: BLOOD SPECIMENOrdering Facility: [facility] Address: [address] [place] [address] Performed By: #### 1 8262-6, 94466-1 ####[facility] LABCLIA [id number] [address] [address] [place] Chloride [Moles/Vol] 102 mmol/L Normal 98-107 [facility] Comment on above: Order Comment: Speci men Type: BLOOD SPECIMENOrdering Facility: [facility] Address: [address] [place] [address] Performed By: #### 1 8262-6, 37831-2 ####[facility] LABCLIA [id number] [place] [id number] [place] CO2 [Moles/Vol] 23 mmol/L Normal 22-30 [facility] Comment on above: Order Comment: Speci men Type: BLOOD SPECIMENOrdering Facility: [facility] Address: [address] [place] [address] Performed By: #### 1 8262-6, 38939-7 ####[facility] LABCLIA [id number] [place] [address] [place] Creatinine [Mass/Vol] 0.83 mg/dL Normal 0.73-1.22 [facility] Comment on above: Order Comment: Speci men Type: BLOOD SPECIMENOrdering Facility: [facility] Address: [address] [place] [address] Performed By: #### 1 8262-6, 11274-0 ####[facility] LABIA [id number] [place] [address] [place] Creatinine and Glomerular filtration rate.predicted panel (S/P/Bld) 101 mL/min/1.73m??? Normal >=60 [facility] Comment on above: Order Comment: Speci men Type: BLOOD SPECIMENOrdering Facility: [facility] Address: [address] [place] [address] Result Comment: Bianca mated Glomerular Filtration Rate (eGFR) is calculated using the 2020 CKD-EPI creatinine equation. This equation utilizes serum creatinine, sex, and age as parameters. The creatinine assay has traceable calibration to isotope dilution-mass spectrometry. Refer to KDIGO guidelines for clinical interpretation. In patients with unstable renal function, e.g. those with acute kidney injury, the eGFR may not accurately reflect actual GFR. Performed By: #### 1 8262-6, 40652-5 ####[facility] LABCLIA [id number] [address] [address] [place] Glucose [Mass/Vol] 200 mg/dL High 74-99 [facility] Comment on above: Order Comment: Jonas florez Type: BLOOD SPECIMENOrdering Facility: [facility] Address: [address] [place] [address] Result Comment: The [place] Diabetes Association (ADA) provides guidance for cutoff values for fasting glucose and random glucose. The ADA defines fasting as no caloric intake for at least 8 hours. Fasting plasma glucose results between 100 to 125 mg/dL indicate increased risk for diabetes (prediabetes). Fasting plasma glucose results greater than or equal to 126 mg/dL meet the criteria for diagnosis of diabetes. In the absence of unequivocal hyperglycemia, results should be confirmed by repeat testing. In a patient with classic symptoms of hyperglycemia or hyperglycemic crisis, random plasma glucose results greater than or equal to 200 mg/dL meet the criteria for diagnosis of diabetes. Reference: Standards of Medical Care in Diabetes 2016, [place] Diabetes Association. Diabetes Care. 2016.39(Suppl 1). Performed By: #### 1 8262-6, 42084-2 ####[facility] LABCLIA [id number] [address] [address] [place] Phosphate [Mass/Vol] 3.0 mg/dL Normal 2.7-4.8 [facility] Comment on above: Order Comment: Jonas florez Type: BLOOD SPECIMENOrdering Facility: [facility] Address: [address] [place] [address] Performed By: #### 1 8262-6, 20741-9 ####[facility] LABCLIA [id number] [address] [address] [place] Potassium [Moles/Vol] 3.9 mmol/L Normal 3.7-5.1 [facility] Comment on above: Order Comment: Speci men Type: BLOOD SPECIMENOrdering Facility: [facility] Address: [address] [place], [place] [address] Performed By: #### 1 8262-6, 82181-0 ####[facility] LABCLIA [id number] [address] [address] [place] Sodium [Moles/Vol] 139 mmol/L Normal 136-144 [facility] Comment on above: Order Comment: Speci men Type: BLOOD SPECIMENOrdering Facility: [facility] Address: [address] [place] [address] Performed By: #### 1 8262-6, 20489-2 ####[facility] LABCLIA [id number] [place] [id number] [place] Urea nitrogen [Mass/Vol] 11 mg/dL Normal 9-24 [facility] Comment on above: Order Comment: Speci men Type: BLOOD SPECIMENOrdering Facility: [facility] Address: [address] [place], [place] [address] Performed By: #### 1 8262-6, 45151-1 ####[facility] LABCLIA [id number] [place] [id number] [place] THERAPY NTon 09-23-2024 THERAPY NT HNO ID: [id number] Author: JOSE ROSS [facility]-[employer]PER[employer] Service: Speech/Swallow Author Type: Speech Language Pathologist Type: Therapy (PT/OT/Speech/Resp) Filed: 09/23/2024 18:21 Note Text: [facility] Speech Pathology - [facility] Bedside Swallow Evaluation SERVICE DATE: 09/23/2024 ROOM: H063 001/H063-01 This service received consults for speech-language and swallowing assessments this date. The focus of this visit was placed on completion of a swallow evaluation, due to RN report of noted overt clinical s/s aspiration with the pt's current diet. The pt has a significant dysarthria and receptive and expressive aphasia. Speech language skills will be assessed at the next visit. Poor pt ability to fully participate in structured tasks due to confusion. IMPRESSIONS: The pt presents with a mild oral, and suspect pharyngeal dysphagia, characterized by prolonged mastication with mixed soft solids due to edentulous status, delays in bolus formation, A-P transit, and swallow onset, complications related to pt confusion such as impulsivity, not following commands/instruction s, and distractibility. The pt is noted to show overt clinical s/s aspiration with thin liquid intake, and demonstrate poor safety awareness. The pt took nectar thick liquids at a rapid rate, with moderate anterior spillage noted. No overt clinical s/s aspiration nor laryngeal penetration were noted with nectar thick liquids, pudding, and pudding with small portions of broke zach crackers. He remains at a degree of risk due to impulsivity however. Prognosis: Good for tolerance of the least restrictive diet without overt clinical s/s aspiration, provided swallow safety controls are complied with for all intake. RECOMMENDATIONS: NO THIN LIQUIDS. THICKEN ALL LIQUIDS TO A MILDLY THICK (L2) / NECTAR CONSISTENCY Soft and Bite-Sized (L6) with Mildly Thick/[place] Thick (L2) liquids Limit distractions during intake Supervision / assistance with all PO Sit as upright as comfortably possible for all PO Alternate solids / liquids Feed at slow rate Small bites / sips Give medications whole in applesauce / pudding only if problematic with nectar thick liquids If further concerns, please contact this SUPER[employer]WORK[employer] for further assessment Speech / Swallowing therapy in house and after discharge, LOC TBD PLAN: SUPERVISOR [employer]WORK[employer] will follow in house. Jose Ross [facility]-[employer] Pager # [phone] BRIEF DIAGNOSIS AND HISTORY: Mr. Evangelista Borrego is a 59 yo male with a PMH significant for T2DM, LYLE, HLD, seizures on phenytoin who presents as a transfer from OSH for left P1 occlusion. Per OSH records, LKW 9 PM on 09/21 when his son dropped him off at a family members house to help care for another family member. He was found laying on the floor by his son with right side weakness and slurred speech today at 5 PM on 09/22. iNIHSS at OSH was 7 for dysarthria, right hemiparesis, and RUE dysmetria. Patient was alert and conversant upon presentation. BP 150/85. POC 258. Not on AC. CTH with NAP, but demonstrates encephalomalacia in left paramedian occipital lobe. 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 Unclear chronicity of the occlusion. Patient was determined not to be a candidate for TNK given time from LKW. Recommendation was made to give ASA load and keep patient flat. Patient transferred to [facility] SDU for further observation and workup. Upon arrival, patient was HDS. Unable to provide reliable medical history due to mild aphasia and moderate-significant dysarthria. iNIHSS 6 (1 RFD, 1 RUE, 1 RUE ataxia, 1 aphasia, 2 dysarthria). No prior history of TIA or stroke. No hx of alcohol or drug abuse. Unable to reach patient's spouse via telephone overnight BEHAVIORAL OBSERVATIONS: Alert, Cooperative, Aphasic, Impulsive, Distractible, Confused PRESENT FEEDING METHOD: Oral Diet Level: Regular Diet with Thin liquids Dentition: Edentulous Tracheostomy: No O2: Room Air ORAL MECHANISM EVALUATION: Right facial droop, diminished nasolabial fold, slight lingual deviation to the right on protrusion, decreased precision of lingual lateralization to the bilateral labial corners. SPEECH PRODUCTION: The pt presents with a significant expressive, and moderate receptive aphasia in addition to a severe dysarthria. Speech production breaks down at the word level, worsening as utterance length increases. The pt is noted to self correct, being deliberate with articulation for a significant improvement in speech intelligibility. This is brief in nature, to a particular context. The pt's speech tends to occur with limited jaw excursion for speech projection, complicated by significant slurring and a high frequency of jargon. The pt was unable to name objects with a limited sample today. Further assessment as able in future visits. CONSISTENCIES GIVEN: Ice chips Water [place] thick liquid Pudding Crumbled Zach cracke (more content not included)... Normal [facility] THERAPY NT HNO ID: [id number] Author: NYLA PELAYO OT/Odalys Service: Occupational Therapy Author Type: Occupational Therapist Type: Therapy (PT/OT/Speech/Resp) Filed: 09/23/2024 16:28 Note Text: Occupational Therapy Evaluation Summary SERVICE DATE: 09/23/2024 SERVICE TIME: 1529 to 1607 ROOM: [place] [address] OT 6 Clicks Score: 16 DISCHARGE RECOMMENDATIONS Acute Rehab Recommended Discharge Disposition Due to: Patient requires active, intensive rehabilitation by multiple therapy disciplines. Anticipate the patient will tolerate 3 hours of therapy per day., ADL impairment, Cognitive deficits new/worsened, Coordination deficits, Functional status decline, Requires multiple therapy disciplines Anticipated Discharge Needs: Undetermined ASSESSMENT Response to Therapy Interventions: Cognitive Deficits, Needs Frequent Redirection or Reinstruction, Requires Additional Time to Complete Activities Pt extremely drowsy upon OT arrival, requiring max multimodal cues for sustained alertness/attention to task. Pt becoming more alert as session progressed, tolerated bed in chair position well to engage in various grooming and cognitive tasks. Pt AANDOx2 4AT (+). Pt with significant expressive language deficits, but demonstrates ability to accurately point to written choices. Poor success with communication board with individual letters/pictures this date to express basic wants/needs. R UE inattention, coordination and strength deficits noted. Unable to engage in bilateral integration tasks at this time d/t impaired coordination/strengt h. Pt requires intensive, multidisciplinary therapy upon d/c to further address functional deficits. PRECAUTIONS Fall Risk CURRENT HOSPITAL COURSE Transfer from OSH for L P1 occlusion. LKW 9 PM on 09/21 when his son dropped him off at a family members house to help care for another family member. He was found laying on the floor by his son with right side weakness and slurred speech today at 5 PM on 09/22. iNIHSS at OSH was 7 for dysarthria, right hemiparesis, and RUE dysmetria. Relevant Past Medical History: T2DM, LYLE, HLD, seizures on phenytoin HOME LIVING Patient Lives With: Family Assistance Available: Other: See Comment Comments: Per pt lives with 2 sons Entry To Home: (Some here and there) PRIOR FUNCTIONAL LEVEL Unable to Report Pt poor historian 2/2 expressive deficits. Able to report no AD use and that he lives with his 2 sons. Reports he has not driven in a while. Denies falls. SUBJECTIVE Watch TV COGNITION Communication Deficits: Expressive Deficits Orientation Deficits: Not oriented to Place, Not oriented to Situation Responsiveness: Drowsy Follows Commands: 1-step Commands Attention Deficits: (sustained attention) Cog 6 Start of Session Total Points (Max Score = 24): 9 (09/23/24) Cog 6 End of Session Total Points (Max Score = 24): 17 (09/23/24) 4AT Score: (!) 12 (09/23/24) Name of LIP Notified of New Positive 4AT Score: Rosalie Elena SUPPORT TECHNICIAN (09/23/24) Delirium Positive/Negative: Positive (09/23/24) Cognitive Activities Performed: reorientation, sustained attention to task, skilled sensory stimulation for sustained arousal/alertness, environmental modifications implemented for delirium reduction, functional object use, 1 step command following, attempts for various communication methods (yes/no, writing, low tech communication board, pointing to written words) to optimize independence with expressing wants/needs THERAPY DIAGNOSIS Reduced mobility-other, Decreased activities of daily living (ADL), Muscle Weakness (generalized), Signs and Symptoms Involving Cognitive Functions and Awareness, Lack of coordination-other TREATMENT INTERVENTIONS Evaluation, Cognitive Training (46411 and 58140), Self Shelter Management (53807) Timed Code Treatment (minutes): 23 Skilled Treatment Time (minutes): 38 TRAINING AND EDUCATION PROVIDED Cognitive Prosthetics, Command Following, Delirium Reduction Techniques, Grooming Tasks, Memory/Attention, Orientation, Positioning, Role of Occupational Therapy, Self-Expression/Advo cacy, Visual Scanning/Attention Activities THERAPEUTIC SKILLS USED Activity Dosing, Assessment of Tolerance Including Vitals Response to Activity, Bed in Chair Position, Cues for Sequencing/Proper Technique for Activity, Cuing Tactile, Cuing Verbal, Cuing Visual, Bilateral UE Integration, Physical Assist, Therapeutic Use of Self, Task Analysis Learning FUNCTIONAL STATUS Activities of Daily Living Assist Level Additional Information Feeding Supervision Grooming Supervision, Additional Information seated, setup A provided Bathing Upper Body Moderate Assistance Bathing Lower Body Moderate Assistance Dressing Upper Body Moderate Assistance Dressing Lower Body Maximal Assistance Toileting Maximal Assistance Mobility Assist Level Additional Information Bed Mobility Sit to Stand Stand to Sit Bed to Chair Toilet/Comm (more content not included)... Normal [facility] THERAPY NT HNO ID: [id number] Author: ALEXIA VALENTE PT Service: Physical Therapy Author Type: Physical Therapist Type: Therapy (PT/OT/Speech/Resp) Filed: 09/23/2024 14:04 Note Text: Physical Therapy Evaluation Summary SERVICE DATE: 09/23/2024 SERVICE TIME: 1302 to 1342 ROOM: [address] 6 Clicks Score: 13 DISCHARGE RECOMMENDATIONS Acute Rehab Recommended Discharge Disposition Due to: Patient requires active, intensive rehabilitation by multiple therapy disciplines. Anticipate the patient will tolerate 3 hours of therapy per day. Recommended Discharge Equipment: To Be Determined ASSESSMENT Response to Therapy Interventions: Good Participation in Activities, Needs Frequent Redirection or Reinstruction Pt cleared for PT by RN. Significant expressive deficits noted throughout session, intermittently and inconsistently able to verbalize clearly. Oriented to self only for PT. Impulsive with activity though receptive to verbal instructions and redirection. Min-mod A for sitting balance at EOB, difficulty stepping from bed to chair demo R knee buckling and difficulty with foot clearance. Demo mild R side inattention during functional tasks. Anticipate pt signficantly below functional baseline, recommend AR level PT intervention at hospital d/c. PRECAUTIONS Fall Risk CURRENT HOSPITAL COURSE Transfer from OSH for L P1 occlusion. LKW 9 PM on 09/21 when his son dropped him off at a family members house to help care for another family member. He was found laying on the floor by his son with right side weakness and slurred speech today at 5 PM on 09/22. iNIHSS at OSH was 7 for dysarthria, right hemiparesis, and RUE dysmetria. Relevant Past Medical History: T2DM, LYLE, HLD, seizures on phenytoin HOME LIVING Patient Lives With: Family Assistance Available: Other: See Comment Comments: Per pt lives with 2 sons Entry To Home: (Some here and there) PRIOR FUNCTIONAL LEVEL Poor Historian, Within Functional Limits Pt poor historian 2/2 expressive deficits. Able to report no AD use and that he lives with his 2 sons. Reports he has not driven in a while. Denies falls. SUBJECTIVE Agreeable to PT THERAPY DIAGNOSIS Reduced mobility-other, Muscle Weakness (generalized), Unsteadiness on feet, Abnormalities of gait and mobility-other TREATMENT INTERVENTIONS Evaluation, Therapeutic Activity (50663) Timed Code Treatment (minutes): 25 Skilled Treatment Time (minutes): 40 TRAINING AND EDUCATION PROVIDED Assistive Device Use, Bed Mobility, Discharge Planning, Energy Conservation, Equipment, Exercise Program, Expected Functional Level, Falls Prevention, Gait Pattern, Reduction of Deviations, Home Safety, Home Set-up/Modifications , Patient Exercise/Therapy Program Support Needs, Positioning, Pre-gait Activities, Role of Physical Therapy, Sitting Balance, Standing Balance, Transfers, Treatment Protocol THERAPEUTIC SKILLS USED Activity Dosing, Assessment of Tolerance Including Vitals Response to Activity, Cues for Sequencing/Proper Technique for Activity, Cuing Tactile, Cuing Verbal, Cuing Visual, Movement Facilitation, Muscle Activation Facilitation, Physical Assist, Teach-Back for Education FUNCTIONAL STATUS Bed Mobility Rolling: Modified Independent (use of bed rails) Supine To Sit: Moderate Assistance Sit to Supine: Stand By Assistance Scooting: Contact Guard Assistance Transfers Sit To Stand: Minimal Assistance Stand To Sit: Minimal Assistance Bed to Chair Moderate Assistance Bed To Chair Transfer Type: Stepping Bed To Chair Transfer Equipment: Gait Belt Gait Stairs GOALS Patient will demonstrate progress to optimize functional mobility, maximize activity tolerance and endurance to maximize function upon discharge. Rehab Potential: Good PLAN PT Frequency: 4 Times Per Week Treatment Interventions: Education, Self Care / Home Management, Energy Conservation Training, Strengthening, Functional Mobility Training, Balance Training, Neuromuscular Re-education Plan for Next Visit: Bed Mobility, Sitting Balance, Sit to Stand Transfers, Chair Transfer Training, Pre-gait Activities SIGNATURE: Alexia Valente, PT PATIENT NAME: Evangelista Borrego JR DATE: September 23, 2024 TIME: 2:04 PM Normal [facility] TOXICOLOGY SCREEN, ROUTINE U RINEon 09-23-2024 Amphetamines Confirm (U) [Mass/Vol] Negative Normal Negative [facility] Comment on above: Order Comment: Speci men Type: URINE SPECIMENOrdering Facility: [facility] Address: [address] [place] [address] Result Comment: Cuto ff threshold at 1000 ng/mL. Performed By: #### U TOX2 ####[facility] LABCLIA [id number] [place] [address] [place] BARBITURATES, URINE Negative Normal Negative [facility] Comment on above: Order Comment: Speci men Type: URINE SPECIMENOrdering Facility: [facility] Address: [address] [place] [address] Result Comment: Cuto ff threshold at 200 ng/mL. Performed By: #### U TOX2 ####[facility] LABCLIA [id number] [place] [address] [place] BENZODIAZEPINES, UR Negative Normal Negative [facility] Comment on above: Order Comment: Speci men Type: URINE SPECIMENOrdering Facility: [facility] Address: [address] [place] [address] Result Comment: Cuto ff threshold at 200 ng/mL. Performed By: #### U TOX2 ####[facility] LABCLIA [id number] [place] [address] [place] Cannabinoids Screen Ql (U) Negative Normal Negative [facility] Comment on above: Order Comment: Speci men Type: URINE SPECIMENOrdering Facility: [facility] Address: [address] [place] [address] Result Comment: Cuto ff threshold at 50 ng/mL. Performed By: #### U TOX2 ####[facility] LABCLIA [id number] [place] [address] [place] Cocaine Ql (U) Negative Normal Negative [facility] Comment on above: Order Comment: Speci men Type: URINE SPECIMENOrdering Facility: [facility] Address: [address] [place] [address] Result Comment: Cuto ff threshold at 300 ng/mL. Performed By: #### U TOX2 ####[facility] LABCLIA [id number] [place] [address] [place] Ethanol (U) [Mass/Vol] <11 Normal <11 [facility] Comment on above: Order Comment: Speci men Type: URINE SPECIMENOrdering Facility: [facility] Address: [address] [place] [address] Performed By: #### U TOX2 ####[facility] LABCLIA [id number] [place] [address] [place] Opiates Screen Ql (U) Negative Normal Negative [facility] Comment on above: Order Comment: Speci men Type: URINE SPECIMENOrdering Facility: [facility] Address: [address] [place] [address] Result Comment: Cuto ff threshold at 300 ng/mL. Performed By: #### U TOX2 ####[facility] LABCLIA [id number] [place] [address] [place] oxyCODONE cutoff Screen (U) [Mass/Vol] Negative Normal Negative [facility] Comment on above: Order Comment: Speci men Type: URINE SPECIMENOrdering Facility: [facility] Address: [address] [place] [address] Result Comment: Cuto ff threshold at 100 ng/mL. Performed By: #### U TOX2 ####[facility] LABCLIA [id number] [address] Phencyclidine Ql (U) Negative Normal Negative [facility] Comment on above: Order Comment: Speci men Type: URINE SPECIMENOrdering Facility: [facility] Address: [address] [place] [address] Result Comment: Cuto ff threshold at 25 ng/mL. Performed By: #### U TOX2 ####[facility] LABCLIA [id number] [address] [place] .Auto Diffon 09-22-2024 Basophil, Absolute 0.1 10 3/mcL Normal 0.0-0.[address] [facility] Comment on above: Performed By: #### L AC, ANEU, TROPHS, MDW, PRO, APTT, CRE, CBC, GFR, ADIFF #### [address] [address] Basophils/100 WBC (Bld) 1.0 % Normal 0.0-2.5 [facility] Comment on above: Performed By: #### L AC, ANEU, TROPHS, MDW, PRO, APTT, CRE, CBC, GFR, ADIFF #### [address] [address] Eosinophil, Absolute 0.1 10 3/mcL Normal 0.0-0.7 [facility] Comment on above: Performed By: #### L AC, ANEU, TROPHS, MDW, PRO, APTT, CRE, CBC, GFR, ADIFF #### [address] [address] Eosinophils/100 WBC (Bld) 1.9 % Normal 0.0-7.0 [facility] Comment on above: Performed By: #### L AC, ANEU, TROPHS, MDW, PRO, APTT, CRE, CBC, GFR, ADIFF #### [address] [address] Lymphocyte, Absolute 2.1 10 3/mcL Normal 0.9-4.3 [facility] Comment on above: Performed By: #### L AC, ANEU, TROPHS, MDW, PRO, APTT, CRE, CBC, GFR, ADIFF #### [address] [address] Lymphocytes/100 WBC (Bld) 31.5 % Normal 20.0-40.0 [facility] Comment on above: Performed By: #### L AC, ANEU, TROPHS, MDW, PRO, APTT, CRE, CBC, GFR, ADIFF #### [address] [address] Monocyte, Absolute 0.6 10 3/mcL Normal 0.1-1.[address] [facility] Comment on above: Performed By: #### L AC, ANEU, TROPHS, MDW, PRO, APTT, CRE, CBC, GFR, ADIFF #### [address] [address] Monocytes/100 WBC (Bld) 8.5 % Normal 2.0-13.0 [facility] Comment on above: Performed By: #### L AC, ANEU, TROPHS, MDW, PRO, APTT, CRE, CBC, GFR, ADIFF #### [address] [address] Neutrophils/100 WBC (Bld) 57.1 % Normal 50.0-75.0 [facility] Comment on above: Performed By: #### L AC, ANEU, TROPHS, MDW, PRO, APTT, CRE, CBC, GFR, ADIFF #### [address] [address] .GFRon 09-22-2024 Estimated Glomerular Filtration Rate 95 ml/min/1.73sqm Normal [facility] Comment on above: Result Comment: Stages of Chronic Kidney Disease (CKD) Stage Description eGFR(ml/min/1.73 sq.m.) CKD 1 Normal kidney function or >=90 normal kindney function with possible kidney damage (ex. Proteinuria) CKD 2 Kidney damage with mild loss 60-89 of kidney function CKD 3a Mild to moderate loss of kidney 45-59 function CKD 3b Moderate to severe loss of 30-44 of kindey function CKD 4 Severe loss of kidney function 15-29 CKD 5 Kidney failure <15 Note: (go live 2024) the eGFR calculation was updated to the 2020 CKD-EPI creatinine equation without a race factor to calculate the eGFR results. Performed By: #### L DAREK, STELLA, MESHAS, MDW, PRO, APTT, CRE, CBC, GFR, ADIFF #### [address] [address] .MDWon 09-22-2024 Monocyte Distribution Width 20.00 Normal 0.00-20.00 [facility] Comment on above: Result Comment: For ED adult patients suspected of sepsis, MDW<=20.0 does not rule out sepsis or risk of sepsis Performed By: #### L DAREK, STELLA, MESHAS, MDW, PRO, APTT, CRE, CBC, GFR, ADIFF #### [address] [address] .NEUABSon 09-22-2024 Neutrophil, Absolute 3.8 10 3/mcL Normal 2.3-8.1 [facility] Comment on above: Performed By: #### L AC, ANEU, TROPHS, MDW, PRO, APTT, CRE, CBC, GFR, ADIFF #### [address] [address] APTTon 09-22-2024 aPTT Coag (Bld) [Time] 28.2 s Normal 25.0-35.0 [facility] Comment on above: Result Comment: For Heparin anticoagulation therapy, the recommended therapeutic range is: 45.4-75.9 seconds. Patients on heparin therapy may have an extreme result. Performed By: #### L AC, STELLA, MESHAS, MDW, PRO, APTT, CRE, CBC, GFR, ADIFF ####[address] [address] CBCon 09-22-2024 Erythrocyte distribution width (RBC) [Ratio] 13.7 % Normal 11.5-15.5 [facility] Comment on above: Performed By: #### L AC, ANEU, TROPHS, MDW, PRO, APTT, CRE, CBC, GFR, ADIFF #### [address] [address] Hematocrit (Bld) [Volume fraction] 43.6 % Normal 40.0-52.0 [facility] Comment on above: Performed By: #### L AC, ANEU, MESHAS, MDW, PRO, APTT, CRE, CBC, GFR, ADIFF #### [address] [address] Hgb 15.8 G/dL Normal 13.0-17.5 [facility] Comment on above: Performed By: #### L AC, ANEU, TROPHS, MDW, PRO, APTT, CRE, CBC, GFR, ADIFF #### [address] [address] MCH (RBC) [Entitic mass] 31.1 pg Normal 27.0-33.0 [facility] Comment on above: Performed By: #### L AC, ANEU, MESHAS, MDW, PRO, APTT, CRE, CBC, GFR, ADIFF #### [address] [address] MCHC 36.3 G/dL High 32.0-36.0 [facility] Comment on above: Performed By: #### L AC, ANEU, MESHAS, MDW, PRO, APTT, CRE, CBC, GFR, ADIFF #### [address] [address] MCV (RBC) [Entitic vol] 85.8 fL Normal 81.0-100.0 [facility] Comment on above: Performed By: #### L AC, ANEU, TROPHS, MDW, PRO, APTT, CRE, CBC, GFR, ADIFF #### [address] [address] Platelet 239 10 3/mcL Normal 150-450 [facility] Comment on above: Performed By: #### L AC, ANEU, TROPHS, MDW, PRO, APTT, CRE, CBC, GFR, ADIFF #### [place] [place], [place] [address] Platelet mean volume (Bld) [Entitic vol] 7.6 fL Normal 6.4-10.5 [facility] Comment on above: Performed By: #### L AC, ANEU, MESHAS, MDW, PRO, APTT, CRE, CBC, GFR, ADIFF #### [address] [address] RBC 5.08 10 6/mcL Normal 4.50-6.00 [facility] Comment on above: Performed By: #### L AC, ANEU, TROPHS, MDW, PRO, APTT, CRE, CBC, GFR, ADIFF #### [address] [address] WBC 6.7 10 3/mcL Normal 4.5-10.8 [facility] Comment on above: Performed By: #### L AC, ANEU, TROPHS, MDW, PRO, APTT, CRE, CBC, GFR, ADIFF #### [address] [address] CBC panel Auto (Bld)on 09-22 Erythrocyte distribution width (RBC) [Ratio] 12.7 % Normal 11.5-15.0 [facility] Comment on above: Order Comment: Speci men Type: BLOOD SPECIMENOrdering Facility: [facility] Address: [address] [place] [address] Performed By: #### 5 8410-2 ####[facility] LABCLIA [id number] [place] [address] [place] Hematocrit (Bld) [Volume fraction] 39.5 % Normal 39.0-51.0 [facility] Comment on above: Order Comment: Speci men Type: BLOOD SPECIMENOrdering Facility: [facility] Address: [address] [place] [address] Performed By: #### 5 8410-2 ####[facility] LABIA [id number] [place] [address] [place] Hemoglobin (Bld) [Mass/Vol] 14.1 g/dL Normal 13.0-17.0 [facility] Comment on above: Order Comment: Speci men Type: BLOOD SPECIMENOrdering Facility: [facility] Address: [address] [place] [address] Performed By: #### 5 8410-2 ####[facility] LABIA [id number] [place] [address] [place] MCH (RBC) [Entitic mass] 30.3 pg Normal 26.0-34.0 [facility] Comment on above: Order Comment: Speci men Type: BLOOD SPECIMENOrdering Facility: [facility] Address: [address] [place] [address] Performed By: #### 5 8410-2 ####[facility] LABIA [id number] [place] [address] [place] MCHC (RBC) [Mass/Vol] 35.7 g/dL Normal 30.5-36.0 [facility] Comment on above: Order Comment: Speci men Type: BLOOD SPECIMENOrdering Facility: [facility] Address: [address] [place] [address] Performed By: #### 5 8410-2 ####[facility] LABIA [id number] [place] [address] [place] MCV (RBC) [Entitic vol] 84.8 fL Normal 80.0-100.0 [facility] Comment on above: Order Comment: Speci men Type: BLOOD SPECIMENOrdering Facility: [facility] Address: [address] [place] [address] Performed By: #### 5 8410-2 ####[facility] LABCLIA [id number] [address], [place] [address] [place] Nucleated RBC (Bld) [#/Vol] 10*3/uL Normal <0.01 [facility] Comment on above: Order Comment: Speci men Type: BLOOD SPECIMENOrdering Facility: [facility] Address: [address] [place] [address] Performed By: #### 5 8410-2 ####[facility] LABIA [id number] [address], [facility]95 [place] Platelet mean volume (Bld) [Entitic vol] 9.9 fL Normal 9.0-12.7 [facility] Comment on above: Order Comment: Speci men Type: BLOOD SPECIMENOrdering Facility: [facility] Address: [address] [place] [address] Performed By: #### 5 8410-2 ####[facility] LABIA [id number] [place] [address] [place] Platelets (Bld) [#/Vol] 221 10*3/uL Normal 150-400 [facility] Comment on above: Order Comment: Speci men Type: BLOOD SPECIMENOrdering Facility: [facility] Address: [address] [place] [address] Performed By: #### 5 8410-2 ####[facility] LABIA [id number] [place] [id number] [place] RBC (Bld) [#/Vol] 4.66 10*6/uL Normal 4.20-6.00 [facility] Comment on above: Order Comment: Speci men Type: BLOOD SPECIMENOrdering Facility: [facility] Address: [address] [place] [address] Performed By: #### 5 8410-2 ####[facility] LABIA [id number] [place] [id number] [place] WBC (Bld) [#/Vol] 5.93 10*3/uL Normal 3.70-11.00 [facility] Comment on above: Order Comment: Speci men Type: BLOOD SPECIMENOrdering Facility: [facility] Address: [address] [place] [address] Performed By: #### 5 8410-2 ####[facility] LABCLIA [id number] DUYENVanesa COLMENARES [id number] [place], [place] [id number] [place] CREon 09-22-2024 Creatinine [Mass/Vol] 0.93 mg/dL Normal 0.70-1.30 [facility] Comment on above: Result Comment: Test ing performed on Siemens Dimension EXL analyzer using a modified kinetic Aminah technique. Performed By: #### L AC, ANEU, TROPHS, MDW, PRO, APTT, CRE, CBC, GFR, ADIFF #### Corey [address] [address] [address] ANGIOGRAPHY HEAD W/ CONTR Luz Marina 09-22-2024 CT ANGIOGRAPHY HEAD W/ CONTRAST ORIGINAL EXAMINATION: CTA OF THE HEAD WITH CONTRAST 09/22/2024 6:49 pm: TECHNIQUE: CTA of the head/brain was performed with the administration of intravenous contrast. Multiplanar reformatted images are provided for review. MIP images are provided for review. Automated exposure control, iterative reconstruction, and/or weight based adjustment of the mA/kV was utilized to reduce the radiation dose to as low as reasonably achievable. COMPARISON: CT head performed same day. HISTORY: ORDERING SYSTEM PROVIDED HISTORY: Reason for Exam: Stroke Emergency FINDINGS: ANTERIOR CIRCULATION: No significant stenosis of the intracranial internal carotid, anterior cerebral, or middle cerebral arteries. No aneurysm. 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 Otherwise, no significant stenosis of the vertebral, basilar, or posterior cerebral arteries. No aneurysm. 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 Communicated results to Dr. Edwin Smith at 09/22/2024. Interpreted by: Chon Yates Preliminary Report By: Chon Yates Electronically signed By Chon Yates Dictated Date: 09/22/2024 6:51:33 PM Prelim Date: 09/22/2024 6:57:43 PM Sign Date: 09/22/2024 6:57:43 PM Ordering Provider: CASSIE [facility] [place] CT ANGIOGRAPHY NECK W/CONTRA STon 09-22-2024 CT ANGIOGRAPHY NECK W/CONTRAST ORIGINAL EXAMINATION: CTA OF THE NECK 09/22/2024 7:01 pm TECHNIQUE: CTA of the neck was performed with the administration of intravenous contrast. Multiplanar reformatted images are provided for review. MIP images are provided for review. Stenosis of the internal carotid arteries measured using NASCET criteria. Automated exposure control, iterative reconstruction, and/or weight based adjustment of the mA/kV was utilized to reduce the radiation dose to as low as reasonably achievable. COMPARISON: Concurrent CTA head. HISTORY: ORDERING SYSTEM PROVIDED HISTORY: Reason for Exam: Stroke Emergency FINDINGS: AORTIC ARCH/ARCH VESSELS: No dissection or arterial injury. No significant stenosis of the brachiocephalic or subclavian arteries. CAROTID ARTERIES: Atherosclerotic changes and distal cervical ICA tortuosity without dissection, arterial injury, or hemodynamically significant stenosis by NASCET criteria. VERTEBRAL ARTERIES: Codominant. No dissection, arterial injury, or significant stenosis. SOFT TISSUES: The lung apices are clear. No cervical or superior mediastinal lymphadenopathy. The larynx and pharynx are unremarkable. No acute abnormality of the salivary and thyroid glands. BONES: No acute osseous abnormality. IMPRESSION: No large vessel occlusion or hemodynamically significant stenosis. Interpreted by: Marina Vázuqez Preliminary Report By: Marina Vázquez Electronically signed By Marina Vázquez Dictated Date: 09/22/2024 7:03:30 PM Prelim Date: 09/22/2024 7:07:44 PM Sign Date: 09/22/2024 7:07:44 PM Ordering Provider: CASSIE JAYIENZA [facility] CT HEAD OR BRAIN W/O CONTRAS Ton 09-22-2024 CT HEAD OR BRAIN W/O CONTRAST ADDENDUM ADDENDUM: After review of CTA of the head, given left posterior cerebral artery large vessel occlusion, the transcortical hypodensity in the left paramedian occipital lobe is strictly age indeterminate. Changes of this report, as well as communication of the left HOUSE SHORER P1 segment occlusion, was communicated to Dr. Edwin Smith at 6:56 p.m. on 09/22/2024. Interpreted by: Chon Yates Preliminary Report By: Chon Yates Electronically signed By Chon Yates Dictated Date: 09/22/2024 6:58:00 PM Prelim Date: 09/22/2024 6:59:35 PM Sign Date: 09/22/2024 6:59:35 PM Ordering Provider: CASSIE SMITH ORIGINAL EXAMINATION: CT OF THE HEAD WITHOUT CONTRAST 09/22/2024 6:37 pm TECHNIQUE: CT of the head was performed without the administration of intravenous contrast. Automated exposure control, iterative reconstruction, and/or weight based adjustment of the mA/kV was utilized to reduce the radiation dose to as low as reasonably achievable. COMPARISON: MRI of the brain May 11, 2021 HISTORY: ORDERING SYSTEM PROVIDED HISTORY: Reason for Exam: change in mental status/weakness/apha sade FINDINGS: BRAIN/VENTRICLES: There is no acute intracranial hemorrhage, mass effect or midline shift. No abnormal extra-axial fluid collection. Small area of encephalomalacia in the left paramedian occipital lobe. There is no evidence of hydrocephalus. ORBITS: The visualized portion of the orbits demonstrate no acute abnormality. SINUSES: The visualized paranasal sinuses and mastoid air cells demonstrate no acute abnormality. SOFT TISSUES/SKULL: No acute abnormality of the visualized skull. IMPRESSION: No acute intracranial hemorrhage, mass effect or midline shift. Small area of encephalomalacia in the left paramedian occipital lobe. Interpreted by: Chon Yates Preliminary Report By: Chon Yates Electronically signed By Chon Yates Dictated Date: 09/22/2024 6:43:27 PM Prelim Date: 09/22/2024 6:46:32 PM Sign Date: 09/22/2024 6:46:32 PM Ordering Provider: CASSIE SMITH [facility] HISTORY PHYSICALon HISTORY PHYSICAL HNO ID: [id number] Author: MEGAN CORRAL DO Service: Neurology General Author Type: Resident Type: H&P Filed: 09/23/2024 20:04 Note Text: Attestation signed by Megan Corral DO at 09/23/2024 8:04 PM [facility] STAFF PHYSICIAN NOTE OF PERSONAL INVOLVEMENT IN CARE I have reviewed the history and physical examination obtained and documented by the resident and I personally participated in the youngblood components. I have discussed the case and management of the patient's care. The following comments revise or confirm relevant youngblood components of their note. We met with the patient, available family, nursing, and unit care team at the bedside. We discussed the ongoing evaluation and management of the patient in a collaborative fashion. We educated the patient and family on stroke risk factors, and continued evaluation and management of their medical problems. All questions were answered. SIGNATURE: Megan Corral DO DATE of SERVICE: September 23, 2024 TIME of SERVICE: 1:30 PM NEURO STROKE HANDP SERVICE DATE: 09/22/2024 SERVICE TIME: 2099 PCP: Adriana Shaw MD REASON FOR STROKE EVALUATION: Left P1 occlusion Subjective HPI: Mr. Evangelista Borrego is a 59 yo male with a PMH significant for T2DM, LYLE, HLD, seizures on phenytoin who presents as a transfer from OSH for left P1 occlusion. Per OSH records, LKW 9 PM on 09/21 when his son dropped him off at a family members house to help care for another family member. He was found laying on the floor by his son with right side weakness and slurred speech today at 5 PM on 09/22. iNIHSS at OSH was 7 for dysarthria, right hemiparesis, and RUE dysmetria. Patient was alert and conversant upon presentation. BP 150/85. POC 258. Not on AC. CTH with NAP, but demonstrates encephalomalacia in left paramedian occipital lobe. 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 Unclear chronicity of the occlusion. Patient was determined not to be a candidate for TNK given time from LKW. Recommendation was made to give ASA load and keep patient flat. Patient transferred to [facility] for further observation and workup. Upon arrival, patient was HDS. Unable to provide reliable medical history due to mild aphasia and moderate-significant dysarthria. iNIHSS 6 (1 RFD, 1 RUE, 1 RUE ataxia, 1 aphasia, 2 dysarthria). No prior history of TIA or stroke. No hx of alcohol or drug abuse. Unable to reach patient's spouse via telephone overnight. Pre-admission Was patient on antithrombotic agent prior to admission: No Was patient on lipid lowering agent prior to admission: Statin Pre-morbid mRS: Premorbid Modified Sheridan Score: 1 - No significant disability despite symptoms - able to carry out all usual duties and activities PAST MEDICAL HISTORY Diagnosis Date Generalized anxiety disorder Anxiety, Generalized Mixed hyperlipidemia Hyperlipidemia Seizures (HCC) Type II or unspecified type diabetes mellitus without mention of complication, not stated as uncontrolled PAST SURGICAL HISTORY Procedure Laterality Date ANESTHESIA ARTHROSCOPIC PROCEDURE [facility]TRANSPOS MEDIAN NRV CARPAL TUNNE Carpal tunnel decomp Social History Tobacco Use Smoking status: Never Smokeless tobacco: Never Substance Use Topics Alcohol use: No Drug use: No FAMILY HISTORY Problem Relation Age of Onset Cancer Mother other (UNKNOWN [Other]) Father Diabetes Brother ALLERGIES No Known Allergies MEDICATION Pre-admission OXcarbazepine 600 mg tablet, Take 1 tablet by mouth twice daily., Disp: 60 tablet, Rfl: 5, 09/21/2024 phenytoin SR (DILANTIN) 100 mg ER capsule, 3 capsules twice daily., Disp: 180 capsule, Rfl: 5, 09/21/2024 cyclobenzaprine (FLEXERIL) 10 mg tablet, Take 10 mg by mouth three times daily as needed. for Muscle Spasm, Disp: , Rfl: , Unknown gabapentin (NEURONTIN) 600 mg tablet, Take 600 mg by mouth., Disp: , Rfl: , Unknown COMPOUNDED PRESCRIPTION, Knee High Compression Stockings 20-30 mm, DX: Edema and venous insufficiency, Disp: 4 Each, Rfl: 0, Unknown meloxicam 15 mg tablet, Take 1 tablet by mouth once daily. Take with food., Disp: 30 tablet, Rfl: 2, Unknown metFORMIN (GLUCOPHAGE) 850 mg tablet, Take one(1) tablet twice daily., Disp: 60 tablet, Rfl: 11, Unknown Blood-Glucose Meter (FREESTYLE LITE METER) monitoring kit, Use as instructed., Disp: 1 Each, Rfl: 0, Unknown blood sugar diagnostic (FREESTYLE LITE STRIPS) test strip, Use as instructed., Disp: 50 Strip, Rfl: 0, Unknown Current OXcarbazepine 600 mg tabletTake 1 tablet by mouth twice daily.Disp: 60 tabletRfl: 5 phenytoin SR (DILANTIN) 100 mg ER capsule3 capsules twice daily.Disp: 180 capsuleRfl: 5 cyclobenzaprine (FLEXERIL (more content not included)... Normal [facility] HbA1c (Bld)on 09-22-2024 Average glucose Estimated from glycated hemoglobin (Bld) [Mass/Vol] 232 mg/dL Normal [facility] Comment on above: Order Comment: Jonas florez Type: BLOOD SPECIMENOrdering Facility: [facility] Address: [address] [place] [address] Result Comment: eAG: (Estimated average glucose) is a calculated value from HgbA1c and is compliance representative dealer of the average blood glucose level in the last 2-3 month period. Performed By: #### 5 5454-3 ####[facility] [id number] [place] [address] [place] HbA1c (Bld) [Mass fraction] 9.7 % High 4.3-5.6 [facility] Comment on above: Order Comment: Jonas florez Type: BLOOD SPECIMENOrdering Facility: [facility] Address: [address] [place] [address] Result Comment: Amer ican Diabetes Association guidelines indicate that patients with HgbA1c in the range 5.7-6.4% are at increased risk for development of diabetes, and intervention by lifestyle modification may be beneficial. HgbA1c greater or equal to 6.5% is considered diagnostic of diabetes. Performed By: #### 5 5454-3 ####[facility] LABCLIA [id number] [place]MENARES [address] [place] LABORATORYOrdered By: SYSTEM SYSTEM on 09-22-2024 aPTT Coag (PPP) [Time] 28.2 s Normal 25.0 - 35.0 seconds AO HemoHub SS Comment on above: Interpretive Data: F or Heparin anticoagulation therapy, the recommended therapeutic range is: 45.4-75.9 seconds. Patients on heparin therapy may have an extreme result. Basophils (Bld) [#/Vol] 0.1 103/mcL Normal 0.0 - 0.2 10^3/mcL AO Workflow SS Basophils/100 WBC (Bld) 1.0 % Normal 0.0 - 2.5 % AO Workflow SS Creatinine [Mass/Vol] 0.93 mg/dL Normal 0.70 - 1.30 mg/dL AO ADM SS Comment on above: Interpretive Data: T esting performed on Siemens Dimension EXL analyzer using a modified kinetic Aminah technique. Eosinophil, Absolute 0.1 103/mcL Normal 0.0 - 0 .7 10^3/mcL AO Workflow SS Eosinophils/100 WBC (Bld) 1.9 % Normal 0.0 - 7.0 % AO Workflow SS Erythrocyte distribution width (RBC) [Ratio] 13.7 % Normal 11.5 - 15.5 % AO Workflow SS Estimated Glomerular Filtration Rate 95 ml/min/1.73sqm Invalid Interpretation Code AO Chemistry S Comment on above: Interpretive Data: Stages of Chronic Kidney Disease (CKD) Stage Description eGFR(ml/min/1.73 sq.m.) CKD 1 Normal kidney function or >=90 normal kindney function with possible kidney damage (ex. Proteinuria) CKD 2 Kidney damage with mild loss 60-89 of kidney function CKD 3a Mild to moderate loss of kidney 45-59 function CKD 3b Moderate to severe loss of 30-44 of kindey function CKD 4 Severe loss of kidney function 15-29 CKD 5 Kidney failure <15 Note: (go live 2024) the eGFR calculation was updated to the 2020 CKD-EPI creatinine equation without a race factor to calculate the eGFR results. Hematocrit (Bld) [Volume fraction] 43.6 % Normal 40.0 - 52.0 % AO Workflow SS Hemoglobin (Bld) [Mass/Vol] 15.8 G/dL Normal 13.0 - 17.5 G/dL AO Workflow SS INR Coag (PPP) [Relative time] 1.0 {INR} Invalid Interpretation Code AO HemoHub SS Comment on above: Interpretive Data: Carlee zaragoza [place] [employer]icians (CHEST, 1991, 102:312S-25S) recommended therapeutic range for oral anticoagulant therapy is: LOW RISK: Prophylaxis of venous thrombosis INR: 2.0-3.0 Treatment of pulmonary embolism 2.0-3.0 Prevention of systemic embolism 2.0-3.0 HIGH RISK: Mechanical prosthetic valves 2.5-3.5 Lactate [Moles/Vol] 0.9 mmol/L Normal 0.4 - 2. 0 mmol/L AO ADM SS Lymphocytes (Bld) [#/Vol] 2.1 103/mcL Normal 0.9 - 4.3 10^3/mcL AO Workflow SS Lymphocytes/100 WBC (Bld) 31.5 % Normal 20.0 - 40.0 % AO Workflow SS MCH (RBC) [Entitic mass] 31.1 pg Normal 27.0 - 33.0 pg AO Workflow SS MCHC 36.3 G/dL High 32.0 - 36.0 G/dL AO Workflow SS MCV (RBC) [Entitic vol] 85.8 fL Normal 81.0 - 100.0 fL AO Workflow SS Monocyte distribution width Auto (Bld) [Entitic vol] 20.00 1 Normal 0.00 - 20.00 AO Workflow SS Comment on above: Result Comment: For ED adult patients suspected of sepsis, MDW<=20.0 does not rule out sepsis or risk of sepsis Monocytes (Bld) [#/Vol] 0.6 103/mcL Normal 0.1 - 1.4 10^3/mcL AO Workflow SS Monocytes/100 WBC (Bld) 8.5 % Normal 2.0 - 13.0 % AO Workflow SS Neutrophils (Bld) [#/Vol] 3.8 103/mcL Normal 2.3 - 8.1 10^3/mcL AO Workflow SS Neutrophils/100 WBC (Bld) 57.1 % Normal 50.0 - 75.0 % AO Workflow SS Platelet mean volume (Bld) [Entitic vol] 7.6 fL Normal 6.4 - 10.5 fL AO Workflow SS Platelets (Bld) [#/Vol] 239 103/mcL Normal 150 - 450 10^3/mcL AO Workflow SS PT Coag (PPP) [Time] 11.5 s Normal 9.0 - 1 4.4 seconds AO HemoHub SS RBC (Bld) [#/Vol] 5.08 106/mcL Normal 4.50 - 6.0 0 10^6/mcL AO Workflow SS Troponin I.cardiac DL <= 0.01 ng/mL [Mass/Vol] 10 ng/L Normal 0 - 76 ng/L AO ADM SS Comment on above: Interpretive Data: H igh Sensitive Troponin I Reference Ranges: Female: 0-51 ng/L Male: 0-76 ng/L Testing performed on Mumumío using a homogeneous sandwich chemiluminescent immunoassay based on Shoette technology. WBC (Bld) [#/Vol] 6.7 103/mcL Normal 4.5 - 10.8 10^3/mcL AO Workflow SS LABORATORYOrdered By: Randall Jones on 09-22-2024 Glucose [Mass/Vol] 258 mg/dL High 70 - 110 mg/dL [facility] LACon 09-22-2024 Lactic Acid Lvl 0.9 mmol/L Normal 0.4-2.0 [facility] Comment on above: Performed By: #### L AC, ANEU, TROPHS, MDW, PRO, APTT, CRE, CBC, GFR, ADIFF ####[address] [place], [place] [address] LIPID PANEL, NONFASTINGon Cholesterol [Mass/Vol] 193 mg/dL Normal <200 [facility] Comment on above: Order Comment: Jonas men Type: BLOOD SPECIMEN [facility] Address: [address] [place] [address] Result Comment: <200 mg/dL, Desirable 200-239 mg/dL, Borderline high >239 mg/dL, High Performed By: #### L IPNF, 71851-6 #### [facility] CLIA [id number] [address] [place] [address] [place] HDL CHOLESTEROL, NF 31 mg/dL Low >39 [facility] Comment on above: Order Comment: Jonas men Type: BLOOD SPECIMEN [facility] Address: [address] [place] [address] Result Comment: 40-5 9 mg/dL, Acceptable >59 mg/dL, High: Negative risk factor for coronary heart disease <40 mg/dL, Low: Positive risk factor for coronary heart disease Performed By: #### L BRIDGER, 54477-4 #### [facility] CLIA [id number] [address] [place] [address] [place] LDL CHOLESTEROL, NF Normal [facility] Comment on above: Order Comment: Speci men Type: BLOOD SPECIMEN [facility] Address: [address] [place] [address] Result Comment: Unab le to calculate due to increased Triglycerides. A Direct LDL Cholesterol measurement will not be performed. If clinically indicated, a fasting Basic Lipid Panel (LIPB) may be ordered. Performed By: #### L BRIDGER, 71566-0 #### [facility] CLIA [id number] [address] [place] [address] [place] LDL/HDL RATIO, NF Normal [facility] Comment on above: Order Comment: Awaisi men Type: BLOOD SPECIMEN [facility] Address: [address] [place] [address] Result Comment: Unab le to calculate due to elevated Triglycerides. Reference: 1. National Cholesterol Education Program ATP III Guideline At-A-Glance Quick Desk Reference: National Heart, Lung, and Blood Hull. National Institutes of Health. 2001: NIH Publication No. 01-3305. 2. An International Atherosclerosis Society position paper: global recommendations for the management of dyslipidemia: executive summary, Atherosclerosis. 2014: 232(2):410-413. Performed By: #### L BRIDGER, 61530-7 #### [facility] CLIA [id number] [address] [place] [address] [place] NON HDL CHOL, NF 162 mg/dL High <130 [facility] Comment on above: Order Comment: Speci men Type: BLOOD SPECIMEN [facility] Address: [address] [place] [address] Result Comment: <130 mg/dL, Optimal 130-159 mg/dL, Near optimal/above optimal 160-189 mg/dL, Borderline high 190-219 mg/dL, High >219 mg/dL, Very high Secondary prevention optimal non HDL Cholesterol levels are recommended to be <100 mg/dL Performed By: #### L IPNF, 56665-3 #### [facility] CLIA [id number] [address] [place] [address] [place] T CHOL/HDL RATIO NF 6.23 mg/dL High <5.10 [facility] Comment on above: Order Comment: Speci men Type: BLOOD SPECIMEN [facility] Address: [address] [place] [address] Performed By: #### L IPNF, 17924-0 #### [facility] CLIA [id number] [address] [place] [address] [place] TRIGLYCERIDES, NF 641 mg/dL High <150 [facility] Comment on above: Order Comment: Speci men Type: BLOOD SPECIMEN [facility] Address: [address] [place] [address] Result Comment: <150 mg/dL, Normal 150-199 mg/dL, Borderline high 200-499 mg/dL, High >499 mg/dL, Very high Performed By: #### L IPNF, 81771-7 #### [facility] CLIA [id number] [address] [place] [address] [place] VLDL CHOLESTEROL, NF Normal [facility] Comment on above: Order Comment: Speci men Type: BLOOD SPECIMEN [facility] Address: [address] [place] [address] Result Comment: Unab le to calculate due to elevated Triglycerides. Performed By: #### L IPNF, 79278-2 #### [facility] CLIA [id number] [address] [place] [address] [place] PROon 09-22-2024 PT Coag (PPP) [Time] 11.5 s Normal 9.0-14.[address] [facility] Comment on above: Performed By: #### L AC, ANEU, TROPHS, MDW, PRO, APTT, CRE, CBC, GFR, ADIFF ####[address] [place], [place] [address] PT International Ratio 1.0 Normal [facility] Comment on above: Result Comment: The [place] College of Chest Physicians (CHEST, 1992, 102:312S-25S) recommended therapeutic range for oral anticoagulant therapy is: LOW RISK: Prophylaxis of venous thrombosis INR: 2.0-3.0 Treatment of pulmonary embolism 2.0-3.0 Prevention of systemic embolism 2.0-3.0 HIGH RISK: Mechanical prosthetic valves 2.5-3.5 Performed By: #### L AC, ANEU, TROPHS, MDW, PRO, APTT, CRE, CBC, GFR, ADIFF ####[address] [place], [place] [address] Renal function 2000 panelon 09-22-2024 Albumin [Mass/Vol] 3.8 g/dL Low 3.9-4.9 [facility] Comment on above: Order Comment: Speci men Type: BLOOD SPECIMEN [facility] Address: [address] [place] [address] Performed By: #### L IPNF, 80789-0 #### [facility] CLIA [id number] [address] [place] [address] [place] Anion gap [Moles/Vol] 13 mmol/L Normal 8-15 [facility] Comment on above: Order Comment: Speci men Type: BLOOD SPECIMEN [facility] Address: [address] [place] [address] Performed By: #### L IPNF, 71363-8 #### [facility] CLIA [id number] [address] [place] [address] [place] Calcium [Mass/Vol] 8.9 mg/dL Normal 8.5-10.2 [facility] Comment on above: Order Comment: Speci men Type: BLOOD SPECIMEN [facility] Address: [address] [place] [address] Performed By: #### L IPNF, 06674-6 #### [facility] CLIA [id number] [address] [place] [address] [place] Chloride [Moles/Vol] 101 mmol/L Normal 98-107 [facility] Comment on above: Order Comment: Speci men Type: BLOOD SPECIMEN [facility] Address: [address] [place] [address] Performed By: #### L IPNF, 97110-3 #### [facility] CLIA [id number] [address] [place] [address] [place] CO2 [Moles/Vol] 23 mmol/L Normal 22-30 [facility] Comment on above: Order Comment: Speci men Type: BLOOD SPECIMEN [facility] Address: [address] [place] [address] Performed By: #### L IPNF, 02193-0 #### [facility] CLIA [id number] [address] [place] [address] [place] Creatinine [Mass/Vol] 0.70 mg/dL Low 0.73-1.22 [facility] Comment on above: Order Comment: Speci men Type: BLOOD SPECIMEN [facility] Address: [address] [place] [address] Performed By: #### L IPNF, 76594-8 #### [facility] CLIA [id number] [address] [place] [address] [place] Creatinine and Glomerular filtration rate.predicted panel (S/P/Bld) 107 mL/min/1.73m??? Normal >=60 [facility] Comment on above: Order Comment: Speci men Type: BLOOD SPECIMEN [facility] Address: [address] [place], [place] [address] Result Comment: Bianca mated Glomerular Filtration Rate (eGFR) is calculated using the 2020 CKD-EPI creatinine equation. This equation utilizes serum creatinine, sex, and age as parameters. The creatinine assay has traceable calibration to isotope dilution-mass spectrometry. Refer to KDIGO guidelines for clinical interpretation. In patients with unstable renal function, e.g. those with acute kidney injury, the eGFR may not accurately reflect actual GFR. Performed By: #### L BRIDGER, 51102-1 #### [facility] CLIA [id number] [address] [place] [address] [place] Glucose [Mass/Vol] 186 mg/dL High 74-99 [facility] Comment on above: Order Comment: Jonas florez Type: BLOOD SPECIMEN [facility] Address: [address] [place] [address] Result Comment: The [place] Diabetes Association (ADA) provides guidance for cutoff values for fasting glucose and random glucose. The ADA defines fasting as no caloric intake for at least 8 hours. Fasting plasma glucose results between 100 to 125 mg/dL indicate increased risk for diabetes (prediabetes). Fasting plasma glucose results greater than or equal to 126 mg/dL meet the criteria for diagnosis of diabetes. In the absence of unequivocal hyperglycemia, results should be confirmed by repeat testing. In a patient with classic symptoms of hyperglycemia or hyperglycemic crisis, random plasma glucose results greater than or equal to 200 mg/dL meet the criteria for diagnosis of diabetes. Reference: Standards of Medical Care in Diabetes 2016, [place] Diabetes Association. Diabetes Care. 2016.39(Suppl 1). Performed By: #### L BRIDGER, 47011-9 #### [facility] CLIA [id number] [address] [place] [address] [place] Phosphate [Mass/Vol] 3.2 mg/dL Normal 2.7-4.8 [facility] Comment on above: Order Comment: Jonas florez Type: BLOOD SPECIMEN [facility] Address: [address] [place] [address] Performed By: #### L BRIDGER, 62043-8 #### [facility] CLIA [id number] [address] [place] [address] [place] Potassium [Moles/Vol] 3.6 mmol/L Low 3.7-5.1 [facility] Comment on above: Order Comment: Speci men Type: BLOOD SPECIMEN [facility] Address: [address] [place] [address] Performed By: #### L IPNF, 31543-4 #### [facility] CLIA [id number] [address] [place] [address] [place] Sodium [Moles/Vol] 137 mmol/L Normal 136-144 [facility] Comment on above: Order Comment: Speci men Type: BLOOD SPECIMEN [facility] Address: [address] [place] [address] Performed By: #### L IPNF, 46581-0 #### [facility] CLIA [id number] [address] [place] [address] [place] Urea nitrogen [Mass/Vol] 11 mg/dL Normal 9-24 [facility] Comment on above: Order Comment: Speci men Type: BLOOD SPECIMEN [facility] Address: [address] [place] [address] Performed By: #### L IPNF, 74274-8 #### [facility] CLIA [id number] [address] [place] [address] [place] TROPHSon 09-22-2024 High Sensitivity Troponin I 10 ng/L Normal 0-76 [facility] Comment on above: Result Comment: High Sensitive Troponin I Reference Ranges: Female: 0-51 ng/L Male: 0-76 ng/L Testing performed on Mumumío using a homogeneous sandwich chemiluminescent immunoassay based on Shoette technology. Performed By: #### L AC, ANEU, TROPHS, MDW, PRO, APTT, CRE, CBC, GFR, ADIFF ####[address] [address] XR CHEST 1 VIEWon 09-22-2024 XR CHEST 1 VIEW ORIGINAL EXAMINATION: ONE XRAY VIEW OF THE CHEST09/22/2024 7:09 pm COMPARISON: 03/26/2016 HISTORY: ORDERING SYSTEM PROVIDED HISTORY: Reason for Exam: chest pain/SOB FINDINGS: Cardiomediastinal contours are within normal limits. Low lung volumes with associated bronchovascular crowding. Pulmonary vascular prominence. Haziness in the lungs. Multilevel degenerative changes of the visualized spine. IMPRESSION: Suboptimal exam due to patient body habitus and low lung volumes. Pulmonary vascular prominence. Haziness to the lungs which could be artifactual or reflect airspace disease. I have personally reviewed the images of this examination and agree with the resident's findings and interpretation. Interpreted by: Chon Yates Preliminary Report By: Megan Berry Electronically signed By Chon Yates Dictated Date: 09/22/2024 7:14:29 PM Prelim Date: 09/22/2024 7:17:47 PM Sign Date: 09/22/2024 7:23:01 PM Ordering Provider: CASSIE SMITH [facility] 36 08-05-2024 36 Patient will get refills at upcoming appointment on 08/08/24 [facility] 36on 07-30-2024 36 Ordering provider: Miquel Date of last office visit: 05/02/2024 Date of next office visit: 08/08/2024 Updated/Validated preferred pharmacy: Yes Patient instructed to contact the pharmacy prior to picking up the medication: Yes (1) Medication name: Phenytoin ER Medication dosage: 100 mg (Miligrams Monthly quantity needed: 150 capsule How many day supply requestin days Medication route: oral (PO) Medication administration time(s): N/A If taking medication PRN, reason for taking medication: N/A If this is a controlled substance do you receive this or any other controlled medication from any other doctor or facility: No Date of last refill (see medication tab): 03/29/2024 [facility] 36 Recent Visits Date Type Provider Dept 05/02/24 Office Visit Nena Pardo DO [facility] Jorge L 03/29/24 Office Visit Nena Pardo DO [facility] Jorge L Showing recent visits within past 365 days and meeting all other requirements Future Appointments Date Type Provider Dept 08/08/24 Appointment Nena Pardo DO [facility] Showing future appointments within next 90 days and meeting all other requirements Requested Prescriptions Pending Prescriptions Disp Refills OXcarbazepine (Trileptal) 150 MG tablet [Pharmacy Med Name: OXCARBAZEPINE 150 MG TABLET] 180 tablet 1 Sig: TAKE 1 TABLET BY MOUTH 2 TIMES DAILY Provider: Nena Pardo DO Verified pharmacy: yes Verified day(s) supplied: yes Verified refill(s) needed (previous prescription showing no refills in chart): Yes Have you received any controlled medications from any other provider? N/A Overdue for visit: No If yes - patient scheduled? Yes Most recent labs completed in chart? N/A Normal [facility] AMB POC GLUCOSE TESTon 05-02 Glucose [Mass/Vol] 210 mg/dL Abnormal 70 - 100 mg/dL [facility] Interpretation and review of laboratory results Abnormal [facility] Office Visiton 05-02-2024 Follow-up visit [id number] Evangelista Borrego 1965 [facility] Provider Department Center 05/02/2024 NENA BUITRAGO [facility] Family History Problem Relation Age of Onset High Blood Pressure Mother Heart attack Mother Family Status - Relation Status Age at Mother Father Notes: unknown Level of Service:09512 AL OFFICE/OUTPATIENT ESTABLISHED MOD MDM 30 MIN Reason for Visit and Comments: Follow-up [945964] Flu Vaccine [189] - Patient has declined to receive influenza vaccine in the office. Normal [facility] Progress Noteon 05-02-2024 Progress Note [facility] - [address] [facility] [address] Visit type: Established Patient Reason for Visit: Follow-up and Flu Vaccine (Patient has declined to receive influenza vaccine in the office. ) Assessment and Plan Diagnoses and all orders for this visit: Type 2 diabetes mellitus with hyperglycemia, without long-term current use of insulin (HCC) - AMB POC GLUCOSE TEST Chronic, BS not well controlled He is not checking them - will need glucometer, supplies sent today Continue metformin FU in 3 months Essential hypertension Chronic, well controlled with diet Mixed hyperlipidemia Chronic, well controlled on current medications. Continue atorvastatin Other orders - meloxicam (Mobic) 15 MG tablet; Take 1 tablet (15 mg) by mouth as needed for mild pain (1-3). FU in 3 mo No follow-ups on file. Subjective HPI He's not checking BS States this was bc he wasn't on the metformin Taking care of his mom and brother Cutting back on his potato chips BP is well controlled Review of Systems Constitutional: Negative for appetite change, chills, fatigue and fever. Respiratory: Negative for cough, shortness of breath and wheezing. Cardiovascular: Negative for chest pain, palpitations and leg swelling. Genitourinary: Negative. No Known Allergies Outpatient Medications Prior to Visit Medication Sig Dispense Refill atorvastatin (Lipitor) 20 MG tablet Take 1 tablet (20 mg) by mouth daily. 30 tablet 5 gabapentin (Neurontin) 300 MG capsule Take 1 capsule (300 mg) by mouth 3 times daily. 90 capsule 5 metFORMIN XR (Glucophage-XR) 750 MG 24 hr tablet Take 1 tablet (750 mg) by mouth with evening meal. 90 tablet 3 OXcarbazepine (Trileptal) 150 MG tablet Take 1 tablet (150 mg) by mouth 2 times daily. 60 tablet 3 phenytoin ER (Dilantin) 100 MG capsule Take 2 capsules (200 mg) by mouth every morning AND 2 capsules (200 mg) Daily with lunch AND 1 capsule (100 mg) every evening. 150 capsule 3 meloxicam (Mobic) 15 MG tablet Take 15 mg by mouth as needed. semaglutide (Ozempic, 0.25 or 0.5 MG/DOSE,) 2 MG/1.5ML solution pen-injector Inject 0.25 mg under the skin 1 (one) time per week. (Patient not taking: Reported on 05/02/2024) 1 each 12 No facility-administere d medications prior to visit. Past Medical History: Diagnosis Date Arthritis Diabetes mellitus (HCC) Hypertension Intermittent explosive disorder says he has anger issues Seizure (HCC) 1970 Social History Socioeconomic History Marital status: Tobacco Use Smoking status: Former Current packs/day: 0.00 Types: Cigarettes Quit date: 06/23/1980 Years since quittin.8 Smokeless tobacco: Never Vaping Use Vaping status: Never Used Substance and Sexual Activity Alcohol use: Not Currently Drug use: Not Currently Sexual activity: Yes Partners: Female Social Determinants of Health Financial Resource Strain: Medium Risk (04/03/2024) Overall Financial Resource Strain (CARDIA) Difficulty of Paying Living Expenses: Somewhat hard Food Insecurity: Food Insecurity Present (04/03/2024) Hunger Vital Sign Worried About Running Out of Food in the Last Year: Sometimes true Ran Out of Food in the Last Year: Sometimes true Transportation Needs: Unmet Transportation Needs (04/03/2024) PRAPARE - Transportation Lack of Transportation (Medical): Yes Lack of Transportation (Non-Medical): No Physical Activity: Insufficiently Active (04/03/2024) Exercise Vital Sign Days of Exercise per Week: 1 day Minutes of Exercise per Session: 30 min Stress: Stress Concern Present (04/03/2024) [employer] - Occupational Stress Questionnaire Feeling of Stress : To some extent Social Connections: Moderately Isolated (04/03/2024) Social Connection and Isolation Panel [NHANES] Frequency of Communication with Friends and Family: Once a week Frequency of Social Gatherings with Friends and Family: Never Attends Uatsdin Services: More than 4 times per year Active Member of Clubs or Organizations: No Attends Club or Organization Meetings: Never Marital Status: Intimate Partner Violence: Not At Risk (04/03/2024) Humiliation, Afraid, Rape, and Kick questionnaire Fear of Current or Ex-Partner: No Emotionally Abused: No Physically Abused: No Sexually Abused: No Housing Stability: High Risk (04/03/2024) Housing Stability Vital Sign Unable to Pay for Housing in the Last Year: Yes Number of Times Moved in the Last Year: 1 Homeless in the Last Year: No Past Surgical History: Procedure Laterality Date HAND SURGERY Right WISDOM TOOTH EXTRACTION Past Surgical History: Procedure Laterality Date HAND SURGERY Right WISDOM TOOTH EXTRACTION Family History Problem Relation Name Age of Onset High Blood Pressure Mother Heart attack Mother Objective BP 136/78 Pulse 60 Ht 5' 6 (1.676 m) Wt 285 lb (129 (more content not included)... [facility] 04-12-2024 36 (2nd attempt) Called today to schedule screening colonoscopy (surveillance program) Left message to call the screening program at [phone] [facility] 04-09-2024 36 Screening Colonoscopy (Screening/surveilla nce program) Called pt today to schedule colonoscopy Left message to call the screening program at [phone] [facility] 04-04-2024 36 Scheduled Normal [facility] 36on 04-03-2024 36 IRENA Brandon and tried to schedule his 4 week follow up. He was not at home when I called and said he would call back tomorrow. I told him to have call center to put him though to Ciara at office. Normal [facility] 36 Rx sent. Recommend FU in 4 weeks Normal [facility] 36 Patient in agreement to start Ozempic. Pt is aware this will need a prior auth. Patient is agreement to start Atorvastatin Normal [facility] 36 Labs with A1c of 9.2 - this is pretty high. Goal is less than 7. I'd recommend adding ozempic to his regimen. This is a once a week injection that would lower his blood sugars and help with weight loss. Side effects can include nausea, diarrhea and constipation. Also, triglycerides are high. I don't see that he is on a statin. I would recommend starting atorvastatin to lower his cholesterol and reduce his cardiovascular risk. There is also a high level of microalbumin in his urine, which can be a marker of early kidney disease. This can be managed by better blood sugar control. Normal [facility] Comprehensive metabolic 1998 panelon 04-01-2024 Albumin [Mass/Vol] 4.4 g/dL 3.6 - 5.1 g/dL [facility] Albumin/Globulin [Mass ratio] 1.6 {ratio} [facility] ALP [Catalytic activity/Vol] 72 U/L 35 - 144 U/L [facility] ALT [Catalytic activity/Vol] 47 U/L High 9 - 46 U/L [facility] AST [Catalytic activity/Vol] 26 U/L 10 - 35 U/L [facility] Bilirubin [Mass/Vol] 0.5 mg/dL 0.2 - 1 .2 mg/dL [facility] Calcium [Mass/Vol] 9.4 mg/dL 8.6 - 10. 3 mg/dL [facility] Chloride [Moles/Vol] 104 mmol/L 98 - 11 0 mmol/L [facility] CO2 [Moles/Vol] 25 mmol/L 20 - 32 mmol/L [facility] Creatinine [Mass/Vol] 1.06 mg/dL 0.70 - 1.30 mg/dL [facility] GFR/1.73 sq M.predicted among non-blacks MDRD (S/P/Bld) [Vol rate/Area] 82 mL/min/{1.73_m2} > OR = 60 mL/min/1.73m 2 [facility] [employer] Globulin (S) [Mass/Vol] 2.8 g/dL [facility] [employer] Glucose [Mass/Vol] 284 mg/dL High 65 - 139 mg/dL [facility] [employer] Comment on above: Non-fasting reference interval For someone without known diabetes, a glucose value >125 mg/dL indicates that they may have diabetes and this should be confirmed with a follow-up test. Potassium [Moles/Vol] 4.6 mmol/L 3.5 - 5.3 mmol/L [facility] [employer] Protein [Mass/Vol] 7.2 g/dL 6.1 - 8.1 g/dL [facility] [employer] Sodium [Moles/Vol] 139 mmol/L 135 - 146 mmol/L [facility] Urea nitrogen [Mass/Vol] 15 mg/dL 7 - 25 mg/dL [facility] Urea nitrogen/Creatinine [Mass ratio] SEE NOTE: [facility] [employer] Comment on above: Not Reported: BUN an d Creatinine are within reference range. Hemoglobin A1con 04-01-2024 HbA1c (Bld) [Mass fraction] 9.2 % High NINF [facility] [employer] Comment on above: For someone without known diabetes, a hemoglobin A1c value of 6.5% or greater indicates that they may have diabetes and this should be confirmed with a follow-up test. For someone with known diabetes, a value <7% indicates that their diabetes is well controlled and a value greater than or equal to 7% indicates suboptimal control. A1c targets should be individualized based on duration of diabetes, age, comorbid conditions, and other considerations. Currently, no consensus exists regarding use of hemoglobin A1c for diagnosis of diabetes for children. This test was performed on the Kayleigh dominga c503 platform. Effective 07/10/23, a change in test platforms from the [employer]te[employer] to the Kayleigh dominga c503 may have shifted HbA1c results compared to historical results. Based on laboratory validation testing conducted at [facility], the Kayleigh platform relative to the Ortega platform had an average increase in HbA1c value of < or = 0.3%. This difference is within accepted variability established by the National Glycohemoglobin Standardization Program. Note that not all individuals will have had a shift in their results and direct comparisons between historical and current results for testing conducted on different platforms is not recommended. Hepatitis C antibodyon 04-01 HCV Ab IA Ql Non-Reactive NON-REACTIVE [facility] Comment on above: HCV antibody was non-reactive. There is no laboratory evidence of HCV infection. In most cases, no further action is required. However, if recent HCV exposure is suspected, a test for HCV RNA (test code 06557) is suggested. For additional information please refer to http://education.AcEmpire/faq/WCY69f2 (This link is being provided for informational/ educational purposes only.) Lipid 1996 panelon 4 Cholesterol [Mass/Vol] 169 mg/dL [facility] - 200 mg/dL [facility] Cholesterol in HDL [Mass/Vol] 34 mg/dL Low > OR = [address] [facility] Cholesterol in LDL [Mass/Vol] 99 mg/dL mg/dL (calc) [facility] Comment on above: Reference range: <10 0 Desirable range <100 mg/dL for primary prevention; <70 mg/dL for patients with CHD or diabetic patients with > or = 2 CHD risk factors. LDL-C is now calculated using the Himanshu-Davis calculation, which is a validated novel method providing better accuracy than the Friedewald equation in the estimation of LDL-C. Himanshu SS et al. KYM. 2013;310(19): 7034-5480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 Immunization for Adults (1 - 1-dose 75+ series) RSV Immunization for Adults (1 - 1-dose 75+ series) [facility] Start: 2026 RSV Immunization aged 60 or older (1 - 1-dose 60+ series) RSV Immunization aged 60 or older (1 - 1-dose 60+ series) [facility] Start: 11-25-2025 BP Controlled (<130/80) BP Controlled (<130/80) [facility] Start: 10-31-2025 BP Controlled (<130/80) BP Controlled (<130/80) [facility] Start: 10-21-2025 Diabetes: Estimated Glomerular Filtration Rate for Kidney Health Diabetes: Estimated Glomerular Filtration Rate for Kidney Health [facility] Start: 09-23-2025 Hepatitis B surface antibody level LDL Cholesterol [facility] Start: 09-22-2025 Diabetic foot examination Diabetic Foot Exam [facility] Start: 09-22-2025 Hemoglobin A1c measurement Diabetes: Hemoglobin A1C [facility] Start: 09-22-2025 Lipid panel Lipid Panel [facility] Start: 04-03-2025 Depression Screening Depression Screening [facility] Start: 03-29-2025 Diabetes: Estimated Glomerular Filtration Rate for [facility]ney Health Diabetes: Estimated Glomerular Filtration Rate for Kid[facility] Health [facility] Start: 03-29-2025 Diabetes: Urine Albumin-Creatinine Ratio for [facility] Diabetes: Urine Albumin-Creatinine Ratio for [facility] Health [facility] Start: 03-29-2025 Hemoglobin A1c measurement Diabetes: Hemoglobin A1C [facility] [facility] Start: 03-29-2025 Hepatitis B screening Urine Albumin:Creatinine Ratio [facility] Start: 03-29-2025 Hepatitis B surface antibody level LDL Cholesterol [facility] Start: 03-29-2025 Lipid panel Lipid Panel [facility] Start: 03-24-2025 Influenza vaccination [facility] Start: 01-30-2025 End: 05-01-2025 Lipid 1996 panel - Serum or Plasma LIPID PANEL, FASTING Lab Routine Other hyperlipidemia Expected: 01/30/2025, Expires: 05/01/2025 [facility] Work Phone: Comment on above: Expected: 01/30/2025, Expires: Start: 01-30-2025 End: 01-30-2025 Patient encounter procedure 01/30/2025 1:05 PM EDT Office Visit [facility] [address] [place] [address] Dodie Irvin, ONIEL.WARDROBE COORDINATOR [address] [facility] [address] [place] [address] [facility] Start: 12-23-2024 Hemoglobin A1c measurement HbA1C [facility] Start: 11-25-2024 End: 02-24-2025 Comprehensive metabolic 2000 panel - Serum or Plasma COMPREHENSIVE METABOLIC PANEL Lab Routine Type 2 diabetes mellitus with hyperglycaemia (HCC) Expected: 11/25/2024, Expires: 02/24/2025 [facility] Comment on above: Expected: 11/25/2024, Expires: Start: 11-25-2024 End: 02-24-2025 Lipid 1996 panel - Serum or Plasma LIPID PANEL, FASTING Lab Routine Type 2 diabetes mellitus with hyperglycaemia (HCC) Expected: 11/25/2024, Expires: 02/24/2025 [facility] Comment on above: Expected: 11/25/2024, Expires: Start: 11-25-2024 End: 02-24-2025 Microalbumin/Creatinin e [Mass Ratio] in Urine ALBUMIN/CREATININE RATIO, URINE Lab Routine Type 2 diabetes mellitus with hyperglycaemia (HCC) Expected: 11/25/2024, Expires: 02/24/2025 [facility] Work Phone: Comment on above: Expected: 11/25/2024, Expires: Start: 11-25-2024 End: 02-24-2025 Thyrotropin [Units/volume] in Serum or Plasma THYROID STIMULATING HORMONE Lab Routine Type 2 diabetes mellitus with hyperglycaemia (HCC) Expected: 11/25/2024, Expires: 02/24/2025 [facility] Comment on above: Expected: 11/25/2024, Expires: Start: 11-25-2024 End: 11-25-2024 Patient encounter procedure 11/25/2024 8:00 AM EDT Office Visit Endocrinology [address] [place], [place] [id number] Blaire Denney MD [address] [place], [place] [id number] uncontrolled diabetes, A1c 9.7 Endocrinology Comment on above: uncontrolled diabetes, A1c 9.7 Start: 10-24-2024 End: 10-24-2024 Patient encounter procedure 10/24/2024 2:05 PM EDT Office Visit [facility] [address] [place] [id number] Dodie Irvin APRN.WARDROBE COORDINATOR [address] [facility] [address] [place] [address] Hospital discharge stroke follow up per reina from joe zamora 09/24/24 [facility] Comment on above: Hospital discharge stroke follow up per reina from joe zamora 09/24/24 Start: 10-07-2024 End: 10-07-2024 Patient encounter procedure 10/07/2024 2:20 PM EDT Office Visit [facility] - [address] [place] [phone] Nena Pardo DO [address] [facility] [address] [place], [place] [id number] [facility] Start: 09-27-2024 End: 09-27-2024 Patient encounter procedure [facility] Start: 09-26-2024 Hemoglobin A1c measurement HbA1C [facility] Start: 08-08-2024 End: 08-08-2024 Patient encounter procedure 08/08/2024 2:40 PM EST Office Visit [address] [place] [phone] Nena Pardo, DO [address] [facility] [address] [place], [place] [id number] [facility] Start: 05-02-2024 End: 05-02-2024 Patient encounter procedure 05/02/2024 3:40 PM EDT Office Visit [address] [place] [phone] Nena Pardo, DO [address] [place] [address] [address] [place], [place] [id number] [facility] Start: 03-29-2024 End: 03-29-2025 Comprehensive metabolic 1998 panel - Serum or Plasma Comprehensive metabolic panel Lab Routine Type 2 diabetes mellitus without complication, without long-term current use of insulin ([facility]) Expected: 03/29/2024 (Approximate), Expires: 03/29/[address] [facility] Work Phone: Comment on above: Expected: 03/29/2024 (Approximate), Expi res: 03/29/2025 Start: 03-29-2024 End: 03-29-2025 Hemoglobin A1c measurement Hemoglobin A1c Lab Routine Type 2 diabetes mellitus without complication, without long-term current use of insulin (CMS/HCC) (HCC) Expected: 03/29/2024 (Approximate), Expires: 03/29/[address] [facility] Comment on above: Expected: 03/29/2024 (Approximate), Expi res: 03/29/2025 Start: 03-29-2024 End: 03-29-2025 Hepatitis C virus Ab [Presence] in Serum or Plasma by Immunoassay Hepatitis C antibody Lab Routine Need for hepatitis C screening test Expected: 03/29/2024 (Approximate), Expires: 03/29/2025 [facility] [employer] Comment on above: Expected: 03/29/2024 (Approximate), Expi res: 03/29/2025 Start: 03-29-2024 End: 03-29-2025 Lipid 1996 panel - Serum or Plasma Lipid panel Lab Routine Type 2 diabetes mellitus without complication, without long-term current use of insulin ([facility]/HCC) Expected: 03/29/2024 (Approximate), Expires: 03/29/2025 [facility] [employer] Comment on above: Expected: 03/29/2024 (Approximate), Expi res: 03/29/2025 Start: 03-29-2024 End: 03-29-2025 Microalbumin/Creatinin e panel in random Urine Microalbumin / creatinine urine ratio Lab Routine Type 2 diabetes mellitus without complication, without long-term current use of insulin (CMS/HCC) (HCC) Expected: 03/29/2024 (Approximate), Expires: 03/29/2025 [facility] [employer] Comment on above: Expected: 03/29/2024 (Approximate), Expi res: 03/29/2025 Start: 03-24-2024 COVID-19 Vaccine ( season) COVID-19 Vaccine ( season) [facility] Start: 03-24-2024 Covid-19 Vaccine ( season) Covid-19 Vaccine ( season) [facility] Start: 03-24-2024 Influenza vaccination Influenza Vaccine (#1) [facility] Start: 03-24-2023 Influenza vaccination Influenza Vaccine (#1) [facility] Start: 03-24-2022 Influenza vaccination [facility] Start: 02-14-2022 End: 02-28-2022 Influenza virus A and B RNA and SARS-CoV-2 (COVID-19) N gene panel - Respiratory specimen by VITO with probe detection [facility] Work Phone: Comment on above: Expected: 02/14/2022, Expires: 2 Start: 09-09-2021 Patient referral [facility] Work Phone: Start: 2021 PROSTATE CANCER SCREENING DISCUSSION PROSTATE CANCER SCREENING DISCUSSION [facility] Start: 2021 Prostate specific antigen measurement Prostate Cancer Screening Discussion [facility] Start: 06-13-2020 Diabetes: Estimated Glomerular Filtration Rate for Kidney Health Diabetes: Estimated Glomerular Filtration Rate for Kidney Health [facility] Start: 03-24-2019 Influenza vaccination Flu vaccine (#1) [facility] [place] Start: 07-24-2018 DTaP/Tdap/Td vaccine (2 - Td or Tdap) DTaP/Tdap/Td vaccine (2 - Td or Tdap) [facility] Start: 07-24-2018 DTaP/Tdap/Td Vaccines (2 - Td or Tdap) DTaP/Tdap/Td Vaccines (2 - Td or Tdap) [facility] Start: 07-24-2018 Urine microalbumin profile [facility] Start: 2016 Shingles vaccine (1 of 2) Shingles vaccine (1 of 2) [facility] Start: 2016 SHINGRIX VACCINE (1 of 2) SHINGRIX VACCINE (1 of 2) [facility] Start: 2016 Zoster Vaccines (1 of 2) Zoster Vaccines (1 of 2) [facility] Start: 03-13-2014 3 comp foot exam completed DIABETIC FOOT EXAM [facility] Start: 03-13-2014 Diabetic foot examination Diabetic Foot Exam [facility] Start: 03-13-2014 Glaucoma screening Dilated Retinal Exam [facility] Start: 03-13-2014 Hepatitis B screening URINE ALBUMIN:CREATININE RATIO [facility] Start: 03-13-2014 Hepatitis C antibody, confirmatory test DILATED RETINAL EXAM [facility] Start: 09-13-2013 Hemoglobin A1c measurement HbA1C [facility] Start: 09-13-2013 Hemoglobin A1c/Hemoglobin.total in Blood HBA1C [facility] Start: 08-03-2013 Hepatitis B surface antibody level LDL CHOLESTEROL [facility] Start: 2011 COLOGUARD (FIT-DNA) COLOGUARD (FIT-DNA) [facility] Start: 2011 Colonoscopy COLONOSCOPY [facility] Start: 2011 COLORECTAL CANCER SCREENING COLORECTAL CANCER SCREENING [facility] Start: [address] COLONOGRAPHY [facility] Start: 2011 FECAL OCCULT BLOOD FECAL OCCULT BLOOD [facility] Start: 2011 Prostate specific antigen measurement Prostate Cancer Screening Discussion [facility] Start: 2011 Screening for malignant neoplasm of colon [facility] Start: 2011 SIGMOIDOSCOPY SIGMOIDOSCOPY [facility] Start: 03-01-2011 PNEUMOCOCCAL (2 - PCV) PNEUMOCOCCAL (2 - PCV) [facility] Start: 03-01-2011 Pneumococcal vaccination Pneumococcal Vaccine (2 of 2 - PCV) [facility] Start: 03-01-2011 Pneumococcal Vaccine: 50+ (2 of 2 - PCV) Pneumococcal Vaccine: 50+ (2 of 2 - PCV) [facility] Start: 03-01-2011 Pneumococcal Vaccine: 50+ Years (2 of 2 - PCV) Pneumococcal Vaccine: 50+ Years (2 of 2 - PCV) [facility] Start: 03-01-2011 Pneumococcal Vaccine: Pediatrics (0 to 5 Years) and At-Risk Patients (6 to 64 Years) (2 of 2 - PCV) Pneumococcal Vaccine: Pediatrics (0 to 5 Years) and At-Risk Patients (6 to 64 Years) (2 of 2 - PCV) [facility] Start: 2006 Lipid panel [facility]ids [facility] Start: 2006 Prostate specific antigen measurement Prostate Specific Antigen (PSA) Screening or Monitoring [facility] Start: 2001 Diabetes screen Diabetes screen [email or web address] Start: 1985 HEPATITIS B (1 of 3 - Risk 3-dose series) HEPATITIS B (1 of 3 - Risk 3-dose series) [facility] Start: 1985 Hepatitis B Vaccine (1 of 3 - 19+ 3-dose series) Hepatitis B Vaccine (1 of 3 - 19+ 3-dose series) [facility] Start: 1985 Hepatitis B Vaccines (1 of 3 - 19+ 3-dose series) Hepatitis B Vaccines (1 of 3 - 19+ 3-dose series) [facility] Start: 1984 ANNUAL PCP TEAM CHRONIC DISEASE VISIT ANNUAL PCP TEAM CHRONIC DISEASE VISIT [facility] Start: 1984 BP Controlled (<130/80) BP Controlled (<130/80) [facility] Start: 1984 Depression Screening Depression Screening [facility] Start: 1984 Diabetes: Urine Albumin-Creatinine Ratio for Kidney Health Diabetes: Urine Albumin-Creatinine Ratio for Kidney Health [facility] Start: 1984 Hepatitis C screening [facility] Start: 1984 HEPATITIS C SCREENING HEPATITIS C SCREENING [facility] Start: 1984 HIV SCREENING HIV SCREENING [facility] Start: 1984 HIV screening HIV Screening [facility] Start: 1981 HIV screening HIV screen [facility] Start: 1978 Adult depression screening assessment DEPRESSION SCREENING [facility] Start: 1978 Depression Screen Depression Screen [facility] Start: 1976 Diabetic foot examination Diabetes: Foot Exam [facility] Start: 1976 Glaucoma screening Diabetes: Retinopathy Screening [facility] Start: 1976 Preventive dental service Diabetes: Dental Exam [facility] Start: 1971 COVID-19 Vaccine (1) COVID-19 Vaccine (1) [facility] Start: 1967 MMR Vaccines (1 of 1 - Standard series) MMR Vaccines (1 of 1 - Standard series) [facility] Start: 1966 COVID-19 VACCINE (#1) COVID-19 VACCINE (#1) [facility] Start: 1966 Hemoglobin A1c measurement Diabetes: Hemoglobin A1C [facility] Start: 1966 Hepatitis B Vaccines (1 of 3 - 3-dose series) Hepatitis B Vaccines (1 of 3 - 3-dose series) [facility] Start: 1966 HIV screening HIV Screening [facility] Start: 1966 Lipid panel Lipid Panel [facility] Start: 1966 Screening for malignant neoplasm of colon [facility] Initiate Oxygen Therapy Protocol Initiate Oxygen Therapy Protocol Respiratory Care Routine Daily until discontinued starting 06/12/2019 [facility] [place], [place] Comment on above: Daily until discontinued starting 2018 OUTSIDE VENDOR CARDI AC OUTPATIENT EXTENDED RHYTHM RECORDING (WITHOUT TELEMETRY) OUTSIDE VENDOR CARDIAC OUTPATIENT EXTENDED RHYTHM RECORDING (WITHOUT TELEMETRY) Holter Routine Cerebrovascular accident (CVA) due to occlusion of left posterior cerebral artery (HCC) Ordered: 09/27/2024 [facility] Work Phone: Comment on above: Ordered: 09/27/2024 End: 06-12-2019 Oxcarbazepine level Oxcarbazepine level Lab Routine One Time for 1 Occurrences starting 06/12/2019 until 06/12/2019 [facility] Comment on above: One Time for 1 Occurrences starting 05/25 until 06/12/2019 Patient referral [facility] Work Phone: POCT Glucose [facility] [place] Comment on above: As Needed until discontinued starting 4X Daily (AC & HS) u ntil discontinued starting 06/13/2019 Immunizations Immunization Date Immunization Notes Care Provider Fa [facility] 04-12-2016 influenza virus vacc ine, unspecified formulation Xr [facility] Work Phone: [facility] 08-11-2011 influenza virus vacc ine, unspecified formulation Jin Gilbert MD Work Phone: [facility] 05-19-2010 influenza virus vacc ine, unspecified formulation Jin Gilbert MD Work Phone: [facility] 03-01-2010 pneumococcal polysaccharide vaccine, 23 valent Jin Gilbert MD Work Phone: [facility] 06-01-2009 influenza virus vacc ine, unspecified formulation Jin Gilbert MD Work Phone: [facility] 07-24-2008 tetanus toxoid, redu micki diphtheria toxoid, and acellular pertussis vaccine, adsorbed Jin Gilbert MD Work Phone: [facility] Payers Date Payer Category Payer Self-pay [id number] 2022 Medicaid HMO [employer] ODM [id number] 2022 Medicaid [id number] 2021 Unknown [id number] 2021 Unknown 2019 Medicaid [employer] [id number] 2019-Present [phone] [address] [place] [address] Medicaid [id number] 2019 Medicaid [id number] 2016 Unknown [employer] [facility] MEDICAID xxxxxxxxxxx 2016-Present [phone] CLAIMS DEPARTMENT [address] [place] [address] xxxxxxxxxxx [id number] 2016 Unknown [id number] 1966 Unknown [id number] 1966 Unknown [id number] 1966 Unknown [id number] 1966 Unknown [id number] Unknown [id number] Social History Date Type Detail Facility Start: 06-12-2019 Tobacco smoking stat [facility] End: 06-23-1980 [facility] use [facility] End: 06-23-1980 History of tobacco use [facility] Start: 06-12-2019 End: 10-31-2024 Cigarettes smoked current (pack per day) - [email or web address] Start: 06-12-2019 End: 03-29-2024 Alcohol intake [facility]drinker (finding) [facility] Start: 1965 [facility] Start: 07-19-2012 End: 06-12-2019 Never smoked tobacco (finding) [facility] Sex Assigned At [facility] Start: 10-05-2021 Tobacco smoking stat [facility] Unknown if ever smoked [facility] Work Phone: Start: 1965 Sex Assigned At Male [facility] Work Phone: Start: 07-19-2012 End: 06-12-2019 Tobacco use and exposure Smokeless tobacco non-user [employer] [facility] Work Phone: Start: 12-30-2021 End: 02-14-2022 Exposure to SARS-CoV-2 (event) Not sure [facility] [employer] Phone: Start: 02-14-2022 End: 01-30-2025 Alcohol intake Current non-drinker of alcohol (finding) [facility] Start: 01-09-2022 End: 10-31-2024 Tobacco use panel [facility] [employer] How often do you nee d to have someone help you when you read instructions, pamphlets, or other written material from your doctor or pharmacy [SILS] Never [facility] Has the electric, [employer], [employer], or water [employer] threatened to shut off services in your home in past 12Mo Yes [employer] Within the last year , have you been afraid of your partner or ex-partner? No [facility] Are you now , , , , never or living with a partner? [facility] How often to you hav e a drink containing alcohol? Monthly or less [facility] How many standard drinks containing alcohol do you have on a typical day? 1 or 2 [facility] How often do you hav e 6 or more drinks on 1 occasion? Never [facility] How hard is it for y ou to pay for the very basics like food, housing, medical care, and heating Somewhat hard [facility] Do you feel stress - tense, restless, nervous, or anxious, or unable to sleep at night because your mind is troubled all the time - these days [OSQ] To some extent [facility] (I/We) worried radha er (my/our) food would run out before (I/we) got money to buy more. Sometimes true [facility] [employer] Start: 11-04-2013 End: 02-21-2022 Sex Male (finding) [facility] Medical Equipment Procedure Code Equipment Code Equipment Origin al Text Equipment Identifier Dates Use as instructed. [id number] Start: 03-13-2013 Comment on above: Use as instructed. Functional Status Date Assessment Result Facility 09-29-2024 Are you deaf, or do you have serious difficulty hearing No 09/29/2024 12:26 PM Amanda Salinas LPN No [facility] 09-29-2024 Are you blind, or do you have serious difficulty seeing, even when wearing glasses No 09/29/2024 12:26 PM Amanda Salinas LPN No [facility] 09-29-2024 Do you have serious difficulty walking or climbing stairs Yes 09/29/2024 12:26 PM Amanda Salinas LPN Yes [facility] 09-29-2024 Do you have difficul ty dressing or bathing Yes 09/29/2024 12:26 PM Amanda Sailnas LPN Yes [facility] 09-29-2024 Because of a physica l, mental, or emotional condition, do you have difficulty doing errands alone such as visiting a physician's office or shopping Yes 09/29/2024 12:26 PM Amanda Salinas LPN Yes [facility] 09-22-2024 Functional Status Repositioned back [facility] 09-22-2024 Functional Status Corey Watson [facility] 09-22-2024 Functional Status [facility] Mental Status Date Assessment Result Facility 09-29-2024 Because of a physica l, mental, or emotional condition, do you have serious difficulty concentrating, remembering, or making decisions Yes 09/29/2024 12:26 PM EDT Amanda Barton LPN Yes [facility] 09-22-2024 Mental Status Orientation Not oriented to time, Not oriented to situation, Follows simple commands [facility] Clinical Notes 09-23-2021 to 01-30-2025 Patient InstructionsDodie Irvin APRN.TUCKER - 01/30/2025 1:05 PM EDTAbigail Dk, EFRAIN - 01/17/2025 9:07 PM EDTAbigakennedi Root RN - 01/17/2025 9:07 PM EDTTanja Wu RN - 01/17/2025 7:56 PM EDT Note Date & Type Note Facility 01-30-2025 Instructions Dodie Irvin APRN.CNP - 01/30/2025 1:37 PM EDT Continue Aspirin daily for secondary stroke prevention. Continue Atorvastatin for secondary stroke prevention and LDL goal below 70. Continue monitoring blood pressure for goal below 130/80. Continue monitoring blood sugar for optimal A1c below 7.0. Continue working with therapy for optimal stroke rehabilitation. Fasting lipid panel to update risk factors. Schedule with Endocrinology in February Follow up in 6 months documented in this encounter [facility] 01-30-2025 History of Presen t illness Narrative [facility] Established Visit Consultation is requested by: Joe Zamora [address] [facility] [address] PCP: Adriana Shaw MD ([facility]) [address] [place] [address] CEREBROVASCULAR HISTORY Evangelista Borrego JR is a 59 year old male. Stroke Event Information [facility] 09/22/24-09/29/24 Mr. Evangelista Borrego is a 59 yo male with a PMH significant for T2DM, LYLE, HLD, seizures on phenytoin who presents as a transfer from OSH for left P1 occlusion. Per OSH records, LKW 9 PM on 09/21 when his son dropped him off at a family members house to help care for another family member. He was found laying on the floor by his son with right side weakness and slurred speech today at 5 PM on 09/22. iNIHSS at OSH was 7 for dysarthria, right hemiparesis, and RUE dysmetria. Patient was alert and conversant upon presentation. BP 150/85. POC 258. Not on AC. CTH with NAP, but demonstrates encephalomalacia in left paramedian occipital lobe. 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 Unclear chronicity of the occlusion. Patient was determined not to be a candidate for TNK given time from LKW. Recommendation was made to give ASA load and keep patient flat. Patient transferred to [facility] for further observation and workup. Office Visit 10/31/24 Patient presents for hospital discharge follow up. Patient denies any new or worsening signs or symptoms of stroke. Patient denies any one sided weakness, facial droop, changes in speech or vision. Patient is taking all medications as prescribed. Blood pressure has been controlled Discharged to [place] Continued stroke deficits of ataxia, aphagia, dysarthria and right side weakness. Unable to lift arm or leg. Completely aphasic, nonsensical speech. Unable to correctly answer yes/no questions Dysarthria improved and passed for bite sized diet Patient is working with Physical/Occupational/Speech therapy with mild/n improvement. The patient understands the discussed etiology of TIA/stroke with further risk factor management for secondary stroke prevention. Office Visit 01/30/25 Patient presents for a follow up Here with his son Doing well, no new neurologic symptoms reported Taking all medications as prescribed Check in on recovery Continues to work with therapy He states he is doing well. Has had some improvement in the right side weakness. Able to say more words. Fragmented sentences continue but he is able to get his point across better then last visit Continues to reside in SNF PAST MEDICAL HISTORY Diagnosis Date Dyslipidemia Generalized anxiety disorder Anxiety, Generalized Hypertension Mixed hyperlipidemia Hyperlipidemia Obesity Seizures (HCC) Type II or unspecified type diabetes mellitus without mention of complication, not stated as uncontrolled PAST SURGICAL HISTORY Procedure Laterality Date ANESTHESIA ARTHROSCOPIC PROCEDURE ANKLE & FOOT COLONOSCOPY Dr. Omer [facility] NEUROPLASTY &/TRANSPOS MEDIAN NRV CARPAL TUNNE Carpal tunnel decomp FAMILY HISTORY Problem Relation Age of Onset Cancer Mother other (UNKNOWN [Other]) Father Diabetes Brother Social History Tobacco Use Smoking status: Never Smokeless tobacco: Never Substance Use Topics Alcohol use: No Drug use: No MEDICATIONS Current Outpatient Medications Medication Sig donepezil (ARICEPT) 5 mg tablet Take 5 mg by mouth. naloxone 4 mg/actuation nasal spray (NARCAN) tamsulosin (FLOMAX) 0.4 mg Take 0.4 mg by mouth. atorvastatin (LIPITOR) 40 mg tablet 1 tablet by ORAL/FEEDING TUBE route daily at bedtime. aspirin 81 mg chewable tablet Take 1 tablet by mouth once daily. enoxaparin (LOVENOX) 40 mg/0.4 mL Inject 0.4 mL subcutaneously every 12 hours. losartan (COZAAR) 25 mg tablet Take 3 tablets by mouth once daily. insulin glargine 100 unit/mL (3 mL) Inject 20 Units subcutaneously every morning. (Patient taking differently: Inject 36 Units subcutaneously every morning.) insulin lispro (HUMALOG U-100 INSULIN) 100 unit/mL injection Admin Instructions: ADMINISTER CORRECTIONAL INSULIN REGARDLESS OF MEAL OR NUTRITION INTAKE Scale 2 If Blood Glucose (mg/dL) is <110 Give 0 units, 111-150 Give 0 units, 151-200 Give 2 units, 201-250 Give 4 units, 251-300 Give 6 units, 301-350 Give 8 units, 351-400 Give 10 units, >400 give 10units and notify provider. zonisamide (ZONEGRAN) 100 mg capsule Take 2 capsules by mouth daily at bedtime. gabapentin 100 mg tab Take 3 tablets by mouth three times a day for 90 days. OXcarbazepine (TRILEPTAL) 150 mg tablet Take 150 mg by mouth two times a day. COMPOUNDED PRESCRIPTION Knee High Compression Stockings 20-30 mm, DX: Edema and venous insufficiency Blood-Glucose Meter (FREESTYLE LITE METER) monitoring kit Use as instructed. (Patient not taking: Reported on 11/25/2024) blood sugar diagnostic (FREESTYLE LITE STRIPS) test strip Use as instructed. (Patient not taking: Reported on 11/25/2024) No current facility-administered medications for this visit. ALLERGIES ALLERGIES No Known Allergies PHYSICAL EXAMINATION There were no vitals taken for this visit. General: Well-developed, well-nourished, in no acute distress. HEENT: Normocephalic, atraumatic. Sclerae anicteric. Oropharynx clear. Neck: No carotid bruit. Heart: Regular rate and rhythm, S1 S2, no murmurs. Lungs: Clear to auscultation bilaterally. Abdomen: Abdomen soft, non-tender. Bowel sounds normal. No masses, organomegaly. Extremities: No edema, cyanosis, or clubbing. 2+ dorsalis pedis pulses bilaterally. Skin: No rash or ecchymoses. Neurological: Awake, alert, oriented to person. Speech aphasic with dysarthria Cranial Nerves: PERRL, extraocular movements intact without nystagmus. Visual cummins full. Facial sensation and movements normal and symmetric. Palate elevates equal bilaterally. Tongue midline. Motor: Left side 5/5, right side 3+/5 Sensation: Intact light touch, pinprick, temperature, proprioception, and vibration. Coordination: Rapid alternating movements symmetric on the left, CHRIS RUE. [id number], [id number] without dysmetria on the left, CHRIS RLE. Gait:wheel chair, cane LABS Cholesterol: Cholesterol, Total (mg/dL) Date Value 08/03/2012 174 Total Cholesterol, Nonfasting (mg/dL) Date Value 09/22/2024 193 LDL Cholesterol, Calculated (mg/dL) Date Value 08/03/2012 Unable to calculate due to increased Triglycerides. See LDL-Chol, Direct. LDL Cholesterol Calculated, Nonfasting (no units) Date Value 09/22/2024 Comment: Unable to calculate due to increased Triglycerides. A Direct LDL Cholesterol measurement will not be performed. If clinically indicated, a fasting Basic Lipid Panel (LIPB) may be ordered. HDL Cholesterol (mg/dL) Date Value 08/03/2012 32 HDL Cholesterol, Nonfasting (mg/dL) Date Value 09/22/2024 31 Triglyceride (mg/dL) Date Value 08/03/2012 468 Triglycerides, Nonfasting (mg/dL) Date Value 09/22/2024 641 Diabetes: Hemoglobin A1C (%) Date Value 09/22/2024 9.7 03/13/[address] head non contrast 09/22/2024: left occipital encephalomalacia CTA head and neck 09/22/2024: Left HOUSE SHORER P1 occlusion with distal recanalization MRI brain w/wo contrast 09/23/2024: IMPRESSION: Acute nonhemorrhagic left thalamoperforator territory infarct. Echocardiogram 09/23/2024: CONCLUSIONS: - Technically difficult exam due to suboptimal positioning and body habitus. - Exam indication: Stroke - The left ventricle is normal in size. Left ventricular systolic function is normal. EF = 56 5% (2D 4-ch.) Definity contrast used for endocardial border detection. - The right ventricle is normal in size. Right ventricular systolic function is normal. RV views limited in this study for accurate assessment. - The left atrial cavity is mildly dilated. - The visualized aorta is borderline dilated with a maximal dimension of 3.9 cm. - There are no significant valvular abnormalities. - The patient has not had a prior CC echocardiographic exam for comparison. Bedside EEG monitoring 09/23/2024: Impression: This bedside EEG was recorded from 0124 to 0431 on 09/23/2024 and is suggestive of cortical dysfunction in the left hemisphere and generalized epilepsy. There is also evidence for a mild diffuse encephalopathy. No EEG seizures were seen during this recording. Bedside EEG monitoring 09/24/2024: Impression: This bedside EEG was recorded from 0602 to 1312 on 09/24/2024 and is suggestive of cortical dysfunction in the left hemisphere and generalized epilepsy. There is also evidence for a mild diffuse encephalopathy. No EEG seizures were seen during this recording. Patient Entered Questionnaires PROMIS/NeuroQoL Score Percentiles Percentiles provide an indication of how a patient's score ranks in relation to the [place] general population. > 31st percentile is within normal limits or better * < 31st percentile is at least SD worse than population, which may be clinically relevant < 16th percentile is at least 1 SD worse than population and warrants attention Depression Screening: PHQ-9 Scores: PHQ-9 Self-Harm (Item 9) Response: 0 - 9 No to Mild depression 0 - Not at all 10 - 14 Moderate depression 1 - Several Days > 15 Severe depression 2 - More than half the days 3 - Nearly every day Stroke Mechanism and Scales 09/22/2024 Stroke Mechanism Ischemic Stroke or TIA Ischemic Stroke TOAST Mechanism ([facility]-MODIFIED) Small-Vessel Occlusion ([place]) IMPRESSION Left thalamic infarct felt to be in the setting of small vessel disease due to uncontrolled vascular risk factors. Discharged with Zio. Vessel imaging significant for left HOUSE SHORER P1 occlusion. History of Epilepsy, following with Epilepsy Hypertension, blood pressure controlled Hyperlipidemia, LDL 76 Diabetes, A1c 9.7 PLAN Continue Aspirin daily for secondary stroke prevention. Continue Atorvastatin for secondary stroke prevention and LDL goal below 70. Continue monitoring blood pressure for goal below 130/80. Continue monitoring blood sugar for optimal A1c below 7.0. Continue working with therapy for optimal stroke rehabilitation. Fasting lipid panel to update risk factors. Schedule with Endocrinology in February Follow up in 6 months Medical Decision Making: Medical Decision Making Level: 1 - N/A I spent a total of 40 minutes on the date of service which included preparing to see the patient, [id number] patient care, completing clinical documentation, obtaining and/or reviewing separately obtained history, performing a medically appropriate examination, counseling and educating the patient/family/caregiver, ordering medications, tests, or procedures, communicating with other HCPs (not separately reported), independently interpreting results (not separately reported), and communicating results to the patient/family/caregiver SIGNATURE Dodie Irvin APRN.WARDROBE COORDINATOR Joe [address] [address] Adriana Shaw MD ([facility]) [address] [place] [address] documented in this encounter [facility] 01-17-2025 Emergency department Note Jorje Charles here to take pt back to SNF. Osmani (medic) gave handoff to EMS crew. All questions answered and paperwork provided. [facility] called and notified of pt returning. Pt clean and dry returning to facility. [facility] 01-17-2025 Emergency department Note Jorje Charles here to take pt back to SNF. Osmani (medic) gave handoff to EMS crew. All questions answered and paperwork provided. [facility] called and notified of pt returning. Pt clean and dry returning to facility. Updated ETA 2130 EMERGENCY DEPARTMENT ENCOUNTER Pt Name: Evangelista Borrego Birthdate 1965 Date of evaluation: 01/17/2025 ED Provider: Devan Kenny DO CHIEF COMPLAINT Chief Complaint Patient presents with Fall Complaint of fall this morning at [facility]. Patient fell in the bathroom hitting head. Patient takes an 81mg aspirin daily. No LOC. Patient has a history of CVA and is alert and oriented to person which is baseline per EMS. Patient denies any injury or pain at this time. HISTORY OF PRESENT ILLNESS (Location/Symptom, Timing/Onset, Context/Setting, Quality, Duration, Modifying Factors, Severity) Note limiting factors. I wore appropriate PPE for the entirety of this encounter. HPI Evangelista Borrego is a 59 y.o. male who presents to the emergency department for fall at [facility] facility. History of prior CVA, alert and oriented x 2 at baseline, currently has baseline mental status. Complaining of right hand and wrist pain, states he did hit his head but did not lose consciousness. States he is on blood thinners however I do not see any listed in his med list. It was reported that he takes a daily baby aspirin. Denies any neck pain back pain chest pain shortness of breath abdominal pain or other extremity pain other than the right hand and wrist region. Pain is mild. Fall was apparently witnessed at [facility] facility Nursing Notes were reviewed. REVIEW OF SYSTEMS 14 systems reviewed and otherwise acutely negative except as in the [place]. PAST MEDICAL HISTORY Medical History[1] SURGICAL HISTORY Surgical History[2] CURRENT MEDICATIONS Current Discharge Medication List CONTINUE these medications which have NOT CHANGED Details atorvastatin (Lipitor) 20 MG tablet TAKE 1 TABLET BY MOUTH EVERY DAY Qty: 90 tablet, Refills: 3 gabapentin (Neurontin) 300 MG capsule TAKE 1 CAPSULE BY MOUTH THREE TIMES A DAY Qty: 90 capsule, Refills: 5 Associated Diagnoses: Neuropathy meloxicam (Mobic) 15 MG tablet Take 1 tablet (15 mg) by mouth as needed for mild pain (1-3). Qty: 90 tablet, Refills: 3 metFORMIN XR (Glucophage-XR) 750 MG 24 hr tablet Take 1 tablet (750 mg) by mouth with evening meal. Qty: 90 tablet, Refills: 3 Associated Diagnoses: Type 2 diabetes mellitus without complication, without long-term current use of insulin (HCC) OXcarbazepine (Trileptal) 150 MG tablet TAKE 1 TABLET BY MOUTH 2 TIMES DAILY Qty: 180 tablet, Refills: 1 Comments: DX Code Needed PLEASE REFILL. Associated Diagnoses: Intermittent explosive disorder phenytoin ER (Dilantin) 100 MG capsule Take 2 capsules (200 mg) by mouth every morning AND 2 capsules (200 mg) Daily with lunch AND 1 capsule (100 mg) every evening. Take 2 capsules (200 mg) by mouth every morning AND 2 capsules (200 mg) Daily with lunch AND 1 capsule (100 mg) every evening.. Qty: 150 capsule, Refills: 3 Associated Diagnoses: Seizure (HCC) ALLERGIES Patient has no known allergies. FAMILY HISTORY Family History[3] SOCIAL HISTORY Social History[4] SCREENINGS PHYSICAL EXAM ED Triage Vitals [01/17/25 1525] Temp Heart Rate Resp BP 36.9 C (98.5 F) 75 18 (!) 193/84 SpO2 Temp Source Heart Rate Source Patient Position 100 % Oral -- Lying BP Location FiO2 (%) Left arm -- CONSTITUTIONAL: Aox2 (baseline), no apparent distress, appears stated age HEAD: normocephalic, atraumatic EYES: PERRL, EOMI ENT: moist mucous membranes, uvula midline NECK: supple, symmetric, nontender throughout BACK: symmetric nontender throughout LUNGS: clear to auscultation bilaterally CARDIOVASCULAR: regular rate and rhythm ABDOMEN: soft, non-tender, non-distended with normal active bowel sounds : deferred NEUROLOGIC: MAEx4, no focal sensory or motor deficits MUSCULOSKELETAL: no clubbing, cyanosis or edema mild tenderness over his right radial styloid and mid hand, loss prevention analyst strength sensation is intact throughout SKIN: no exposed rash DIAGNOSTIC RESULTS Procedures/EKG: EKG was reviewed by myself. Physician EKG interpretation can be found in [facility] RADIOLOGY (Per Emergency Physician): Interpretation per the Radiologist below, if available at the time of this note: CT cervical spine wo IV contrast Final Result 1. No acute findings. C-SPINE CT: 1 mm axial cuts through the cervical spine are provided without IV contrast. Coronal and sagittal reconstructions are reviewed. Dose reduction was employed with automated exposure control. There are no comparison studies. FINDINGS: The alignment of the cervical spine is within normal limits. Vertebral body heights and disc spaces are well maintained. There is no evidence of fracture or traumatic subluxation. IMPRESSION: 1. No evidence of fracture or traumatic subluxation. Report Dictated on Electronically Signed By: Tobi Boudreaux MD Electronically Signed Date/Time: 01/17/2025 4:[address] head wo IV contrast Final Result 1. No acute findings. C-SPINE CT: 1 mm axial cuts through the cervical spine are provided without IV contrast. Coronal and sagittal reconstructions are reviewed. Dose reduction was employed with automated exposure control. There are no comparison studies. FINDINGS: The alignment of the cervical spine is within normal limits. Vertebral body heights and disc spaces are well maintained. There is no evidence of fracture or traumatic subluxation. IMPRESSION: 1. No evidence of fracture or traumatic subluxation. Report Dictated on Electronically Signed By: Tobi Boudreaux MD Electronically Signed Date/Time: 01/17/2025 4:46 PM EDT XR hand 3+ views right Final Result 1. No acute findings. Report Dictated on Electronically Signed By: Tobi Boudreaux MD Electronically Signed Date/Time: 01/17/2025 4:11 PM EDT XR wrist 3+ views right Final Result 1. No acute findings. Report Dictated on Electronically Signed By: Tobi Boudreaux MD Electronically Signed Date/Time: 01/17/2025 4:11 PM EDT ED BEDSIDE ULTRASOUND: Performed by ED Physician - none LABS: Labs Reviewed - No data to display All other labs were within normal range or not returned as of this dictation. EMERGENCY DEPARTMENT COURSE and DIFFERENTIAL DIAGNOSIS/MDM: Vitals: Vitals: 01/17/25 1525 01/17/25 1921 BP: (!) 193/84 (!) 178/60 BP Location: Left arm Left arm Patient Position: Lying Lying Pulse: 75 62 Resp: 18 16 Temp: 36.9 C (98.5 F) TempSrc: Oral SpO2: 100% 100% EMERGENCY DEPARTMENT COURSE and DIFFERENTIAL DIAGNOSIS/MDM: Vitals: Vitals: 01/17/25 1525 01/17/251920 BP: (!) 193/84 (!) 178/60 BP Location: Left arm Left arm Patient Position: Lying Lying Pulse: 75 62 Resp: 18 16 Temp: 36.9 C (98.5 F) TempSrc: Oral SpO2: 100% 100% The patient presented with a chief complaint of fall at [facility] facility, reportedly takes a daily baby aspirin, alert and oriented x 2, somewhat difficult to communicate secondary to his prior stroke. Only complaining of hand and wrist pain to me. The differential diagnosis associated with this patient's presentation includes strain sprain fracture intracranial hemorrhage. Our workup consisted of ordering/reviewing CT scan of the head neck showed no acute process. X-ray of the hand and wrist showed no acute process. Placed in a Velcro wrist month, encouraged ice Tylenol as needed for the pain and outpatient follow-up.. Diagnoses as of 01/17/252001 Fall, initial encounter Strain of right wrist, initial encounter Diagnostic tests considered but not performed: External records reviewed: Outpatient notes neurology note reviewed from 10/31/2024 or the patient was seen for follow-up of his cerebral infarction P1 occlusion Diagnostics interpreted by me: Xray(s) no fracture dislocation or mass Discussions with other clinicians: Chronic conditions impacting care: Prior stroke Social determinants of health affecting care: ED Medications managed: Medications - No data to display CONSULTS: None PROCEDURES: Unless otherwise noted below, none Procedures Patients symptoms are consistent with sepsis, severe sepsis, or septic shock (If yes use .sepsiscoremeasure): Final Impression: 1. Fall, initial encounter 2. Strain of right wrist, initial encounter Disposition/Plan dc PATIENT REFERRED TO: Nena Pardo, DO [address] [address] Schedule an appointment as soon as possible for a visit DISCHARGE MEDICATIONS: Current Discharge Medication List (Comment: Please note this report has been produced using speech recognition software and may contain errors related to that system including errors in grammar, punctuation, and spelling, as well as words and phrases that may be inappropriate. If there are any questions or concerns please feel free to contact the dictating provider for clarification.) Devan Kenny, (electronically signed) Emergency Medicine Provider [1] Past Medical History: Diagnosis Date Arthritis Diabetes mellitus (HCC) Hypertension Intermittent explosive disorder says he has anger issues Seizure (HCC) 1970 [2] Past Surgical History: Procedure Laterality Date HAND SURGERY Right WISDOM TOOTH EXTRACTION [3] Family History Problem Relation Name Age of Onset High Blood Pressure Mother Heart attack Mother [4] Social History Socioeconomic History Marital status: Tobacco Use Smoking status: Former Current packs/day: 0.00 Types: Cigarettes Quit date: 06/23/1980 Years since quittin.6 Smokeless tobacco: Never Vaping Use Vaping status: Never Used Substance and Sexual Activity Alcohol use: Not Currently Drug use: Not Currently Sexual activity: Yes Partners: Female Social Drivers of Health Financial Resource Strain: Low Risk (10/02/2024) [facility] from [facility] Overall Financial Resource Strain (CARDIA) Difficulty of Paying Living Expenses: Not hard at all Food Insecurity: No Food Insecurity (10/02/2024) Received from [facility] Hunger Vital Sign Worried About Running Out of Food in the Last Year: Never true Ran Out of Food in the Last Year: Never true Recent Concern: Food Insecurity - Food Insecurity Present (09/23/2024) Received from [facility] Hunger Vital Sign Worried About Running Out of Food in the Last Year: Sometimes true Ran Out of Food in the Last Year: Sometimes true Transportation Needs: No Transportation Needs (10/22/2024) Received from [facility] Transportation Source Has lack of transportation kept you from medical appointments or from getting medications?: No Has lack of transportation kept you from meetings, work, or from getting things needed for daily living?: No Physical Activity: Insufficiently Active (04/03/2024) Exercise Vital Sign Days of Exercise per Week: 1 day Minutes of Exercise per Session: 30 min Stress: No Stress Concern Present (10/23/2024) Received from [facility] [place] [facility] - Occupational Stress Questionnaire Feeling of Stress : Not at all Social Connections: Moderately Isolated (10/02/2024) Received from [facility] Social Connection and Isolation Panel [NHANES] Frequency of Communication with Friends and Family: More than three times a week Frequency of Social Gatherings with Friends and Family: More than three times a week Attends [employer] Services: Never Active Member of Clubs or Organizations: No Attends Club or Organization Meetings: Never Marital Status: Intimate Partner Violence: Patient Unable To Answer (09/29/2024) Received from [facility] Domestic Abuse Assessment Do you feel safe in your relationships at home?: Unable to assess Physical Abuse: Unable to assess Verbal Abuse: Unable to assess Housing Stability: Low Risk (10/02/2024) Received from [facility] Housing Stability Vital Sign Unable to Pay for Housing in the Last Year: No Number of Times Moved in the Last Year: 0 Homeless in the Last Year: No Recent Concern: Housing Stability - High Risk (09/23/2024) Received from [facility] Housing Stability Vital Sign Unable to Pay for Housing in the Last Year: Yes Number of Times Moved in the Last Year: 0 Homeless in the Last Year: No Devan Kenny DO 01/17/252005 documented in this encounter [facility] 01-17-2025 Emergency department Note Updated ETA [address] [facility] 01-17-2025 Physician Emergency department Note EMERGENCY DEPARTMENT ENCOUNTER Pt Name: Evangelista Borrego Birthdate 1965 Date of evaluation: 01/17/2025 ED Provider: Devan Kenny DO CHIEF COMPLAINT Chief Complaint Patient presents with Fall Complaint of fall this morning at [facility]. Patient fell in the bathroom hitting head. Patient takes an 81mg aspirin daily. No LOC. Patient has a history of CVA and is alert and oriented to person which is baseline per EMS. Patient denies any injury or pain at this time. HISTORY OF PRESENT ILLNESS (Location/Symptom, Timing/Onset, Context/Setting, Quality, Duration, Modifying Factors, Severity) Note limiting factors. I wore appropriate PPE for the entirety of this encounter. HPI Evangelista Borrego is a 59 y.o. male who presents to the emergency department for fall at [facility] facility. History of prior CVA, alert and oriented x 2 at baseline, currently has baseline mental status. Complaining of right hand and wrist pain, states he did hit his head but did not lose consciousness. States he is on blood thinners however I do not see any listed in his med list. It was reported that he takes a daily baby aspirin. Denies any neck pain back pain chest pain shortness of breath abdominal pain or other extremity pain other than the right hand and wrist region. Pain is mild. Fall was apparently witnessed at [facility] facility Nursing Notes were reviewed. REVIEW OF SYSTEMS 14 systems reviewed and otherwise acutely negative except as in the [place]. PAST MEDICAL HISTORY Medical History[1] SURGICAL HISTORY Surgical History[2] CURRENT MEDICATIONS Current Discharge Medication List CONTINUE these medications which have NOT CHANGED Details atorvastatin (Lipitor) 20 MG tablet TAKE 1 TABLET BY MOUTH EVERY DAY Qty: 90 tablet, Refills: 3 gabapentin (Neurontin) 300 MG capsule TAKE 1 CAPSULE BY MOUTH THREE TIMES A DAY Qty: 90 capsule, Refills: 5 Associated Diagnoses: Neuropathy meloxicam (Mobic) 15 MG tablet Take 1 tablet (15 mg) by mouth as needed for mild pain (1-3). Qty: 90 tablet, Refills: 3 metFORMIN XR (Glucophage-XR) 750 MG 24 hr tablet Take 1 tablet (750 mg) by mouth with evening meal. Qty: 90 tablet, Refills: 3 Associated Diagnoses: Type 2 diabetes mellitus without complication, without long-term current use of insulin (HCC) OXcarbazepine (Trileptal) 150 MG tablet TAKE 1 TABLET BY MOUTH 2 TIMES DAILY Qty: 180 tablet, Refills: 1 Comments: DX Code Needed PLEASE REFILL. Associated Diagnoses: Intermittent explosive disorder phenytoin ER (Dilantin) 100 MG capsule Take 2 capsules (200 mg) by mouth every morning AND 2 capsules (200 mg) Daily with lunch AND 1 capsule (100 mg) every evening. Take 2 capsules (200 mg) by mouth every morning AND 2 capsules (200 mg) Daily with lunch AND 1 capsule (100 mg) every evening.. Qty: 150 capsule, Refills: 3 Associated Diagnoses: Seizure (HCC) ALLERGIES Patient has no known allergies. FAMILY HISTORY Family History[3] SOCIAL HISTORY Social History[4] SCREENINGS PHYSICAL EXAM ED Triage Vitals [01/17/25 1525] Temp Heart Rate Resp BP 36.9 C (98.5 F) 75 18 (!) 193/84 SpO2 Temp Source Heart Rate Source Patient Position 100 % Oral -- Lying BP Location FiO2 (%) Left arm -- CONSTITUTIONAL: Aox2 (baseline), no apparent distress, appears stated age HEAD: normocephalic, atraumatic EYES: PERRL, EOMI ENT: moist mucous membranes, uvula midline NECK: supple, symmetric, nontender throughout BACK: symmetric nontender throughout LUNGS: clear to auscultation bilaterally CARDIOVASCULAR: regular rate and rhythm ABDOMEN: soft, non-tender, non-distended with normal active bowel sounds : deferred NEUROLOGIC: MAEx4, no focal sensory or motor deficits MUSCULOSKELETAL: no clubbing, cyanosis or edema mild tenderness over his right radial styloid and mid hand, loss prevention analyst strength sensation is intact throughout SKIN: no exposed rash DIAGNOSTIC RESULTS Procedures/EKG: EKG was reviewed by myself. Physician EKG interpretation can be found in [facility] RADIOLOGY (Per Emergency Physician): Interpretation per the Radiologist below, if available at the time of this note: CT cervical spine wo IV contrast Final Result 1. No acute findings. C-SPINE CT: 1 mm axial cuts through the cervical spine are provided without IV contrast. Coronal and sagittal reconstructions are reviewed. Dose reduction was employed with automated exposure control. There are no comparison studies. FINDINGS: The alignment of the cervical spine is within normal limits. Vertebral body heights and disc spaces are well maintained. There is no evidence of fracture or traumatic subluxation. IMPRESSION: 1. No evidence of fracture or traumatic subluxation. Report Dictated on Electronically Signed By: Tobi Boudreaux MD Electronically Signed Date/Time: 01/17/2025 4:[address] head wo IV contrast Final Result 1. No acute findings. C-SPINE CT: 1 mm axial cuts through the cervical spine are provided without IV contrast. Coronal and sagittal reconstructions are reviewed. Dose reduction was employed with automated exposure control. There are no comparison studies. FINDINGS: The alignment of the cervical spine is within normal limits. Vertebral body heights and disc spaces are well maintained. There is no evidence of fracture or traumatic subluxation. IMPRESSION: 1. No evidence of fracture or traumatic subluxation. Report Dictated on Electronically Signed By: Tobi Boudreaux MD Electronically Signed Date/Time: 01/17/2025 4:46 PM EDT XR hand 3+ views right Final Result 1. No acute findings. Report Dictated on Electronically Signed By: Tobi Boudreaux MD Electronically Signed Date/Time: 01/17/2025 4:11 PM EDT XR wrist 3+ views right Final Result 1. No acute findings. Report Dictated on Electronically Signed By: Tobi Boudreaux MD Electronically Signed Date/Time: 01/17/2025 4:11 PM EDT ED BEDSIDE ULTRASOUND: Performed by ED Physician - none LABS: Labs Reviewed - No data to display All other labs were within normal range or not returned as of this dictation. EMERGENCY DEPARTMENT COURSE and DIFFERENTIAL DIAGNOSIS/MDM: Vitals: Vitals: 01/17/25 1525 01/17/251920 BP: (!) 193/84 (!) 178/60 BP Location: Left arm Left arm Patient Position: Lying Lying Pulse: 75 62 Resp: 18 16 Temp: 36.9 C (98.5 F) TempSrc: Oral SpO2: 100% 100% EMERGENCY DEPARTMENT COURSE and DIFFERENTIAL DIAGNOSIS/MDM: Vitals: Vitals: 01/17/25 1525 01/17/251920 BP: (!) 193/84 (!) 178/60 BP Location: Left arm Left arm Patient Position: Lying Lying Pulse: 75 62 Resp: 18 16 Temp: 36.9 C (98.5 F) TempSrc: Oral SpO2: 100% 100% The patient presented with a chief complaint of fall at [facility] facility, reportedly takes a daily baby aspirin, alert and oriented x 2, somewhat difficult to communicate secondary to his prior stroke. Only complaining of hand and wrist pain to me. The differential diagnosis associated with this patient's presentation includes strain sprain fracture intracranial hemorrhage. Our workup consisted of ordering/reviewing CT scan of the head neck showed no acute process. X-ray of the hand and wrist showed no acute process. Placed in a Velcro wrist month, encouraged ice Tylenol as needed for the pain and outpatient follow-up.. Diagnoses as of 01/17/252001 Fall, initial encounter Strain of right wrist, initial encounter Diagnostic tests considered but not performed: External records reviewed: Outpatient notes neurology note reviewed from 10/31/2024 or the patient was seen for follow-up of his cerebral infarction P1 occlusion Diagnostics interpreted by me: Xray(s) no fracture dislocation or mass Discussions with other clinicians: Chronic conditions impacting care: Prior stroke Social determinants of health affecting care: ED Medications managed: Medications - No data to display CONSULTS: None PROCEDURES: Unless otherwise noted below, none Procedures Patients symptoms are consistent with sepsis, severe sepsis, or septic shock (If yes use .sepsiscoremeasure): Final Impression: 1. Fall, initial encounter 2. Strain of right wrist, initial encounter Disposition/Plan dc PATIENT REFERRED TO: Nena Pardo DO [address] [address] Schedule an appointment as soon as possible for a visit DISCHARGE MEDICATIONS: Current Discharge Medication List (Comment: Please note this report has been produced using speech recognition software and may contain errors related to that system including errors in grammar, punctuation, and spelling, as well as words and phrases that may be inappropriate. If there are any questions or concerns please feel free to contact the dictating provider for clarification.) Devan Kenny DO (electronically signed) Emergency Medicine Provider [1] Past Medical History: Diagnosis Date Arthritis Diabetes mellitus (HCC) Hypertension Intermittent explosive disorder says he has anger issues Seizure (HCC) 1970 [2] Past Surgical History: Procedure Laterality Date HAND SURGERY Right WISDOM TOOTH EXTRACTION [3] Family History Problem Relation Name Age of Onset High Blood Pressure Mother Heart attack Mother [4] Social History Socioeconomic History Marital status: Tobacco Use Smoking status: Former Current packs/day: 0.00 Types: Cigarettes Quit date: 06/23/1980 Years since quittin.6 Smokeless tobacco: Never Vaping Use Vaping status: Never Used Substance and Sexual Activity Alcohol use: Not Currently Drug use: Not Currently Sexual activity: Yes Partners: Female Social Drivers of Health Financial Resource Strain: Low Risk (10/02/2024) Received from [facility] Overall Financial Resource Strain (CARDIA) Difficulty of Paying Living Expenses: Not hard at all Food Insecurity: No Food Insecurity (10/02/2024) Received from [facility] Hunger Vital Sign Worried About Running Out of Food in the Last Year: Never true Ran Out of Food in the Last Year: Never true Recent Concern: Food Insecurity - Food Insecurity Present (09/23/2024) Received from [facility] Hunger Vital Sign Worried About Running Out of Food in the Last Year: Sometimes true Ran Out of Food in the Last Year: Sometimes true Transportation Needs: No Transportation Needs (10/22/2024) Received from [facility] Transportation Source Has lack of transportation kept you from medical appointments or from getting medications?: No Has lack of transportation kept you from meetings, work, or from getting things needed for daily living?: No Physical Activity: Insufficiently Active (04/03/2024) Exercise Vital Sign Days of Exercise per Week: 1 day Minutes of Exercise per Session: 30 min Stress: No Stress Concern Present (10/23/2024) Received from [facility] [place] of Occupational Health - Occupational Stress Questionnaire Feeling of Stress : Not at all Social Connections: Moderately Isolated (10/02/2024) Re[facility] from [facility] Social Connection and Isolation Panel [NHANES] Frequency of Communication with Friends and Family: More than three times a week Frequency of Social Gatherings with Friends and Family: More than three times a week Attends Uats[employer] Services: Never Active Member of Clubs or Organizations: No Attends Club or Organization Meetings: Never Marital Status: Intimate Partner Violence: Patient Unable To Answer (09/29/2024) Received from [facility] Domestic Abuse Assessment Do you feel safe in your relationships at home?: Unable to assess Physical Abuse: Unable to assess Verbal Abuse: Unable to assess Housing Stability: Low Risk (10/02/2024) Received from [facility] Housing Stability Vital Sign Unable to Pay for Housing in the Last Year: No Number of Times Moved in the Last Year: 0 Homeless in the Last Year: No Recent Concern: Housing Stability - High Risk (09/23/2024) Received from [facility] Housing Stability Vital Sign Unable to Pay for Housing in the Last Year: Yes Number of Times Moved in the Last Year: 0 Homeless in the Last Year: No Devan Kenny DO 01/17/252005 T [facility] 12-02-2024 Telephone encounter Note Call to [place] [facility] [place], wants to know if pt is supposed to still be on Lovenox. States that the SUPPORT TECHNICIAN there is uncomfortable d/c-ing it without CV provider's input. Please call back 6-p Monday. Seble Myers RN December 02, 2024 2:50 PM [facility] 12-02-2024 Miscellaneous Notes Call to [place] [facility] [place], [employer], wants to know if pt is supposed to still be on Lovenox. States that the SUPPORT TECHNICIAN there is uncomfortable d/c-ing it without CV provider's input. Please call back 6p Monday. Seble Myers RN December 02, 2024 2:50 PM CV PHONE Name of caller : Biat Relationship to patient : Nurse If not self Will need patient permission to release results or disclose health information with called documented in fyi. Patient identified by Name and Date of . ( Evangelista Borrego JR, 1965). Yes Number to return call [phone] Reason for Call: Patient Question/Update: Nurse from where patient is staying calling with a few questions about Lovenox medication. Please return call at [phone] Thank you calling [facility] [place]. You will receive a return call within 48 hours ( or 2 business days if close to the weekend). If you feel that this is an urgent issue and needs immediate attention, it is recommended that you contact your primary care provider office or proceed to your nearest Urgent Care Center of Emergency Room ED for evaluation/treatment. documented in this encounter [facility] 12-02-2024 Telephone encounter Note CV PHONE Name of caller : Bita Relationship to patient : Nurse If not self Will need patient permission to release results or disclose health information with called documented in fyi. Patient identified by Name and Date of . ( Evangelista Borrego JR, 1965). Yes Number to return call [phone] Reason for Call: Patient Question/Update: Nurse from where patient is staying calling with a few questions about Lovenox medication. Please return call at [phone] Thank you calling [facility] [place]. You will receive a return call within 48 hours ( or 2 business days if close to the weekend). If you feel that this is an urgent issue and needs immediate attention, it is recommended that you contact your primary care provider office or proceed to your nearest Urgent Care Center of Emergency Room ED for evaluation/treatment. [facility] 11-25-2024 Telephone encounter Note Called [facility] @ [phone] Spoke to staff. Relayed providers message below Staff verbalized good understanding No further questions/concerns at this time. Hailey Don LPN [facility] 11-25-2024 Miscellaneous Notes Called [facility] @ [phone] Spoke to staff. Relayed providers message below Staff verbalized good understanding No further questions/concerns at this time. Hailey Don LPN Please let the facility know that I reviewed the blood sugars. To continue current insulin regimen Blaire Shearer MD documented in this encounter [facility] 11-25-2024 Telephone encounter Note Please let the facility know that I reviewed the blood sugars. To continue current insulin regimen Blaire Shearer MD [facility] Work Phone: 11-25-2024 Instructions Blaire Denney MD - 11/25/2024 8:18 AM EDT We will request the records of blood sugars documented in this encounter [facility] 11-25-2024 Note HNO ID: [id number] Author: BLAIRE DENNEY MD Service: ? Author Type: Physician Type: Progress Notes Filed: 11/25/2024 08:24 Note Text: Endocrinology Initial Diabetes Assessment Evangelista Borrego JR is here for a consultation upon the request of Dr. Dunaway regarding: T2DM Documentation supporting sharing your findings and recommendations via the shared medical record or via the mail. PCP is MD Adriana Atwood MD ([facility]) [address] [place] [id number] Date: November 25, 2024 History of Present Illness Evangelista Borrego JR is a 59 year old male with PMH of T2DM, HTN, HLD, CVA, seizures and CHRYSTAL who presents today for evaluation of T2DM Patient lives in [facility]. Patient is accompanied by transportation refrigeration technician. She has no clinical information about the patient and we have no blood sugars available. Date of Diagnosis: does not remember Context of Diagnosis: does not remember DM complicated by peripheral neuropathy, micro-albuminuria, CVA. Family history of diabetes includes brother. SMBG Type of Monitor: at facility but not available at this time. Severe hypoglycemia over the last year? None Hypoglycemia awareness: n/a Current DM Regimen: Lantus 36 units every day in the morning Humalog ISS #2 before meals Lipids: on atorvastatin 40 mg every day HTN or CKD/albuminuria: on losartan 25 mg three tablets daily Prior Meds: Glimepiride Metformin The ASCVD Risk score (Dony MCCLENDON, et al., 2019) failed to calculate for the following reasons: Risk score cannot be calculated because patient has a medical history suggesting prior/existing ASCVD Physical Activity: on wheelchair Diet: 3 meals per day Previous Diabetes Education: yes. Health Maintenance: Annual PCP Team Chronic Disease Visit Never done Depression Screening Never done HIV Screening Never done Hepatitis B Vaccine(1 of 3 - 19+ 3-dose series) Never done Pneumococcal Vaccine: 50+(2 of 2 - PCV) due on 03/01/2011 Prostate Cancer Screening Discussion Never done Colorectal Cancer Screening Never done Dilated Retinal Exam due on 03/13/2014 Shingrix Vaccine(1 of 2) Never done DTaP,Tdap,Td Vaccine(2 - Td or Tdap) due on 07/24/2018 Covid-19 Vaccine( season) Never done HbA1C due on 12/23/2024 Influenza Vaccine(Season Ended) due on 03/24/2025 Urine Albumin:Creatinine Ratio due on 03/29/2025 Diabetic Foot Exam due on 09/22/2025 LDL Cholesterol due on 09/23/2025 BP Controlled (<130/80) due on 10/31/2025 Hepatitis C Screening Completed Past History, Medications, Allergies PAST MEDICAL HISTORY Diagnosis Date Dyslipidemia Generalized anxiety disorder Anxiety, Generalized Hypertension Mixed hyperlipidemia Hyperlipidemia Obesity Seizures (HCC) Type II or unspecified type diabetes mellitus without mention of complication, not stated as uncontrolled PAST SURGICAL HISTORY Procedure Laterality Date ANESTHESIA ARTHROSCOPIC PROCEDURE ANKLE [facility] FO[facility] AND/TRANSPOS MEDIAN NRV CARPAL TUNNE Carpal tunnel decomp Current Outpatient Medications Medication Sig Dispense Refill donepezil (ARICEPT) 5 mg tablet Take 5 mg by mouth. naloxone 4 mg/actuation nasal spray (NARCAN) tamsulosin (FLOMAX) 0.4 mg Take 0.4 mg by mouth. atorvastatin (LIPITOR) 40 mg tablet 1 tablet by ORAL/FEEDING TUBE route daily at bedtime. 90 tablet aspirin 81 mg chewable tablet Take 1 tablet by mouth once daily. enoxaparin (LOVENOX) 40 mg/0.4 mL Inject 0.4 mL subcutaneously every 12 hours. losartan (COZAAR) 25 mg tablet Take 3 tablets by mouth once daily. 270 tablet insulin glargine 100 unit/mL (3 mL) Inject 20 Units subcutaneously every morning. (Patient taking differently: Inject 36 Units subcutaneously every morning.) insulin lispro (HUMALOG U-100 INSULIN) 100 unit/mL injection Admin Instructions: ADMINISTER CORRECTIONAL INSULIN REGARDLESS OF MEAL OR NUTRITION INTAKE Scale 2 If Blood Glucose (mg/dL) is <110 Give 0 units, 111-150 Give 0 units, 151-200 Give 2 units, 201-250 Give 4 units, 251-300 Give 6 units, 301-350 Give 8 units, 351-400 Give 10 units, >400 give 10units and notify provider. zonisamide (ZONEGRAN) 100 mg capsule Take 2 capsules by mouth daily at bedtime. 180 capsule 0 gabapentin 100 mg tab Take 3 tablets by mouth three times a day for 90 days. 270 tablet 2 OXcarbazepine (TRILEPTAL) 150 mg tablet Take 150 mg by mouth two times a day. COMPOUNDED PRESCRIPTION Knee High Compression Stockings 20-30 mm, DX: Edema and venous insufficiency 4 Each 0 Blood-Glucose Meter (FREESTYLE LITE METER) monitoring kit Use as instructed. (Patient not taking: Reported on 11/25/2024) 1 Each 0 blood sugar diagnostic (FREESTYLE LITE STRIPS) test strip Use as instructed. (Patient not taking: Reported on 11/25/2024) 50 Strip 0 No current facility-administered medications for this v (more content not included)... [facility] 11-25-2024 History of Presen t illness Narrative Endocrinology Initial Diabetes Assessment Evangelista Borrego JR is here for a consultation upon the request of Dr. Dunaway regarding: T2DM Documentation supporting sharing your findings and recommendations via the shared medical record or via the mail. PCP is MD Adriana Atwood MD ([facility]) [address] [place], [place] [id number] Date: November 25, 2024 History of Present Illness Evangelista Borrego JR is a 59 year old male with PMH of T2DM, HTN, HLD, CVA, seizures and CHRYSTAL who presents today for evaluation of T2DM Patient lives in [facility]. Patient is accompanied by transportation refrigeration technician. She has no clinical information about the patient and we have no blood sugars available. Date of Diagnosis: does not remember Context of Diagnosis: does not remember DM complicated by peripheral neuropathy, micro-albuminuria, CVA. Family history of diabetes includes brother. SMBG Type of Monitor: at facility but not available at this time. Severe hypoglycemia over the last year? None Hypoglycemia awareness: n/a Current DM Regimen: Lantus 36 units every day in the morning Humalog ISS #2 before meals Lipids: on atorvastatin 40 mg every day HTN or CKD/albuminuria: on losartan 25 mg three tablets daily Prior Meds: Glimepiride Metformin The ASCVD Risk score (Dony MCCLENDON, et al., 2019) failed to calculate for the following reasons: Risk score cannot be calculated because patient has a medical history suggesting prior/existing ASCVD Physical Activity: on wheelchair Diet: 3 meals per day Previous Diabetes Education: yes. Health Maintenance: Annual PCP Team Chronic Disease Visit Never done Depression Screening Never done HIV Screening Never done Hepatitis B Vaccine(1 of 3 - 19+ 3-dose series) Never done Pneumococcal Vaccine: 50+(2 of 2 - PCV) due on 03/01/2011 Prostate Cancer Screening Discussion Never done Colorectal Cancer Screening Never done Dilated Retinal Exam due on 03/13/2014 Shingrix Vaccine(1 of 2) Never done DTaP,Tdap,Td Vaccine(2 - Td or Tdap) due on 07/24/2018 Covid-19 Vaccine() Never done HbA1C due on 12/23/2024 Influenza Vaccine(Season Ended) due on 03/24/2025 Urine Albumin:Creatinine Ratio due on 03/29/2025 Diabetic Foot Exam due on 09/22/2025 LDL Cholesterol due on 09/23/2025 BP Controlled (<130/80) due on 10/31/2025 Hepatitis C Screening Completed Past History, Medications, Allergies PAST MEDICAL HISTORY Diagnosis Date Dyslipidemia Generalized anxiety disorder Anxiety, Generalized Hypertension Mixed hyperlipidemia Hyperlipidemia Obesity Seizures (HCC) Type II or unspecified type diabetes mellitus without mention of complication, not stated as uncontrolled PAST SURGICAL HISTORY Procedure Laterality Date ANESTHESIA ARTHROSCOPIC PROCEDURE ANKLE & [facility] &/TRANSPOS MEDIAN NRV CARPAL TUNNE Carpal tunnel decomp Current Outpatient Medications Medication Sig Dispense Refill donepezil (ARICEPT) 5 mg tablet Take 5 mg by mouth. naloxone 4 mg/actuation nasal spray (NARCAN) tamsulosin (FLOMAX) 0.4 mg Take 0.4 mg by mouth. atorvastatin (LIPITOR) 40 mg tablet 1 tablet by ORAL/FEEDING TUBE route daily at bedtime. 90 tablet aspirin 81 mg chewable tablet Take 1 tablet by mouth once daily. enoxaparin (LOVENOX) 40 mg/0.4 mL Inject 0.4 mL subcutaneously every 12 hours. losartan (COZAAR) 25 mg tablet Take 3 tablets by mouth once daily. 270 tablet insulin glargine 100 unit/mL (3 mL) Inject 20 Units subcutaneously every morning. (Patient taking differently: Inject 36 Units subcutaneously every morning.) insulin lispro (HUMALOG U-100 INSULIN) 100 unit/mL injection Admin Instructions: ADMINISTER CORRECTIONAL INSULIN REGARDLESS OF MEAL OR NUTRITION INTAKE Scale 2 If Blood Glucose (mg/dL) is <110 Give 0 units, 111-150 Give 0 units, 151-200 Give 2 units, 201-250 Give 4 units, 251-300 Give 6 units, 301-350 Give 8 units, 351-400 Give 10 units, >400 give 10units and notify provider. zonisamide (ZONEGRAN) 100 mg capsule Take 2 capsules by mouth daily at bedtime. 180 capsule 0 gabapentin 100 mg tab Take 3 tablets by mouth three times a day for 90 days. 270 tablet 2 OXcarbazepine (TRILEPTAL) 150 mg tablet Take 150 mg by mouth two times a day. COMPOUNDED PRESCRIPTION Knee High Compression Stockings 20-30 mm, DX: Edema and venous insufficiency 4 Each 0 Blood-Glucose Meter (FREESTYLE LITE METER) monitoring kit Use as instructed. (Patient not taking: Reported on 11/25/2024) 1 Each 0 blood sugar diagnostic (FREESTYLE LITE STRIPS) test strip Use as instructed. (Patient not taking: Reported on 11/25/2024) 50 Strip 0 No current facility-administered medications for this visit. ALLERGIES No Known Allergies FAMILY HISTORY Problem Relation Age of Onset Cancer Mother other (UNKNOWN [Other]) Father Diabetes Brother Social History Tobacco Use Smoking status: Never Smokeless tobacco: Never Substance Use Topics Alcohol use: No Drug use: No Review of Systems GENERAL:No weight loss, malaise or fevers HEENT:Negative for frequent or significant headaches, No changes in hearing or vision, no nose bleeds or other nasal problems NECK:Negative for lumps, goiter, pain and significant neck swelling RESPIRATORY: Negative for cough, hemoptysis, wheezing or shortness of breath CARDIOVASCULAR: Negative for chest pain, leg swelling or palpitations GASTROINTESTINAL: No nausea, vomiting, or diarrhea GENITOURINARY: No history of dysuria, frequency or incontinence MUSCULOSKELETAL: Negative for joint pain or swelling, back pain or muscle pain NEUROLOGIC:Negative for focal numbness or weakness, headaches and dizziness or syncope. SKIN:Negative for lesions, rash, and itching PSYCHIATRIC: Negative for sleep disturbance, mood disorder and recent psychosocial stressors. HEMATOLOGIC/LYMPHATIC/IMMUNOLOGI C:Negative for prolonged bleeding, bruising easily or swollen nodes ENDOCRINE: Negative for cold or heat intolerance, polyuria, polydipsia and goiter Physical examination BP 103/52 Pulse (!) 55 Awake and alert Sitting on wheelchair No distress No thyroid eye signs No visible goiter or nodules Normal respiratory effort Previous Laboratory Results Previous laboratory results: Hemoglobin A1C Date Value Ref Range Status 09/22/2024 9.7 (H) 4.3 - 5.6 % Final Comment: [place] [employer] guidelines indicate that patients with HgbA1c in the range 5.7-6.4% are at increased risk for development of diabetes, and intervention by lifestyle modification may be beneficial. HgbA1c greater or equal to 6.5% is considered diagnostic of diabetes. 03/13/2013 6.7 (H) 4.0 - 6.0 % Final Comment: [place] [employer] guidelines indicate that patients with HgbA1c in the range 5.7-6.4% are at increased risk for development of diabetes, and intervention by lifestyle modification may be beneficial. HgbA1c greater or equal to 6.5% is considered diagnostic of diabetes. 08/03/2012 6.5 (H) 4.0 - 6.0 % Final Comment: [place] [employer] guidelines indicate that patients with HgbA1c in the range 5.7-6.4% are at increased risk for development of diabetes, and intervention by lifestyle modification may be beneficial. HgbA1c greater or equal to 6.5% is considered diagnostic of diabetes. 01/30/2012 7.1 (H) 4.0 - 6.0 % Final Comment: [place] [employer] guidelines indicate that patients with HgbA1c in the range 5.7-6.4% are at increased risk for development of diabetes, and intervention by lifestyle modification may be beneficial. HgbA1c greater or equal to 6.5% is considered diagnostic of diabetes. HBA1C, [place] Date Value Ref Range Status 08/11/2011 7.4 (H) 4.0 - 6.0 % Final Glucose (mg/dL) Date Value 10/21/2024 88 03/13/2013 160 Potassium (mmol/L) Date Value 10/21/2024 3.9 03/13/2013 3.9 Sodium (mmol/L) Date Value 10/21/2024 141 03/13/2013 135 Chloride (mmol/L) Date Value 10/21/2024 105 03/13/2013 99 CO2 (mmol/L) Date Value 10/21/2024 22 03/13/2013 23 Creatinine (mg/dL) Date Value 10/21/2024 0.98 03/13/2013 0.70 BUN (mg/dL) Date Value 10/21/2024 18 03/13/2013 16 Anion Gap (mmol/L) Date Value 10/21/2024 14 03/13/2013 13 Calcium (mg/dL) Date Value 03/13/2013 9.3 Calcium, Total (mg/dL) Date Value 10/21/2024 9.0 Protein, Total (g/dL) Date Value 08/03/2012 7.1 Albumin (g/dL) Date Value 09/29/2024 3.6 08/03/2012 4.4 Bilirubin, Total (mg/dL) Date Value 08/03/2012 0.2 Alkaline Phosphatase (U/L) Date Value 08/03/2012 86 AST (U/L) Date Value 08/03/2012 17 ALT (U/L) Date Value 08/03/2012 27 Cholesterol, Total (mg/dL) Date Value 08/03/2012 174 Total Cholesterol, Nonfasting (mg/dL) Date Value 09/22/2024 193 HDL Cholesterol (mg/dL) Date Value 08/03/2012 32 HDL Cholesterol, Nonfasting (mg/dL) Date Value 09/22/2024 31 LDL Cholesterol, Calculated (mg/dL) Date Value 08/03/2012 Unable to calculate due to increased Triglycerides. See LDL-Chol, Direct. LDL Cholesterol Calculated, Nonfasting (no units) Date Value 09/22/2024 Comment: Unable to calculate due to increased Triglycerides. A Direct LDL Cholesterol measurement will not be performed. If clinically indicated, a fasting Basic Lipid Panel (LIPB) may be ordered. Triglyceride (mg/dL) Date Value 08/03/2012 468 Triglycerides, Nonfasting (mg/dL) Date Value 09/22/2024 641 ;lt TSH Date Value Ref Range Status 03/13/2013 2.230 0.400 - 5.500 uU/mL Final Albumin/Creat Ratio Date Value Ref Range Status 03/13/2013 108 (H) 0 - 30 mg/g Final Comment: 30 to 300 mg/g indicates an increased risk for diabetic nephropathy. Greater than 300 mg/g is consistent with clinical nephropathy. (Am J Kidney Disease 1995, 25:107) 01/30/2012 184 (H) 0 - 30 mg/g Final Comment: 30 to 300 mg/g indicates an increased risk for diabetic nephropathy. Greater than 300 mg/g is consistent with clinical nephropathy. (Am J Kidney Disease 1995, 25:107) 05/26/2009 9 0 - 30 mg/g Final Comment: 30 to 300 mg/g indicates an increased risk for diabetic nephropathy. Greater than 300 mg/g is consistent with clinical nephropathy. (Am J Kidney Disease 1995, 25:107) Creatinine, Ur Random (UCRR) Date Value Ref Range Status 03/13/2013 198.9 20 - 300 mg/dL Final 01/30/2012 204.3 20 - 300 mg/dL Final 05/26/2009 179.2 20 - 300 mg/dL Final Albumin, Urine Random Date Value Ref Range Status 03/13/2013 215.0 (H) 0.0 - 23.0 mg/L Final 01/30/2012 376.0 (H) 0.0 - 23.0 mg/L Final 05/19/2010 137.0 (H) 0.0 - 23.0 mg/L Final 05/26/2009 15.8 0.0 - 23.0 mg/L Final Impression/Recommendations Evangelista Borrego JR is a 59 year old male with PMH of T2DM, HTN, HLD, CVA, seizures and CHRYSTAL who presents today for evaluation of T2DM ASSESSMENT/PLAN: 1. Type 2 diabetes mellitus with hyperglycaemia (HCC) - ICD9: 250.00, ICD10: E11.65 - Uncontrolled We have requested the blood sugars from [facility] and will reach back to the patient with medication adjustments Blood work fasting - ALBUMIN/CREATININE RATIO, URINE - THYROID STIMULATING HORMONE - COMPREHENSIVE METABOLIC PANEL - LIPID PANEL, FASTING Blaire Shearer MD documented in this encounter [facility] 10-31-2024 Instructions Dodie Irvin APRN.WARDROBE COORDINATOR - 10/31/2024 2:10 PM EDT Continue Aspirin daily for secondary stroke prevention. Continue Atorvastatin for secondary stroke prevention and LDL goal below 70. Continue monitoring blood pressure for goal below 130/80. Continue monitoring blood sugar for optimal A1c below 7.0. Continue working with therapy for optimal stroke rehabilitation. Follow up in 3 months to check in on therapy documented in this encounter [facility] 10-31-2024 History of Presen t illness Narrative [facility] Established Visit Consultation is requested by: Joe Zamora [id number] [facility] [id number] PCP: Adriana Shaw MD ([facility]) [address] [place] [id number] [facility]EREBROVASC[facility] HISTORY Evangelista Borrego JR is a 59 year old male. Stroke Event Information [facility] 09/22/24-09/29/24 Mr. Evangelista Borrego is a 59 yo male with a PMH significant for T2DM, LYLE, HLD, seizures on phenytoin who presents as a transfer from OSH for left P1 occlusion. Per OSH records, LKW 9 PM on 09/21 when his son dropped him off at a family members house to help care for another family member. He was found laying on the floor by his son with right side weakness and slurred speech today at 5 PM on 09/22. iNIHSS at OSH was 7 for dysarthria, right hemiparesis, and RUE dysmetria. Patient was alert and conversant upon presentation. BP 150/85. POC 258. Not on AC. CTH with NAP, but demonstrates encephalomalacia in left paramedian occipital lobe. 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 Unclear chronicity of the occlusion. Patient was determined not to be a candidate for TNK given time from LKW. Recommendation was made to give ASA load and keep patient flat. Patient transferred to [facility] SDU for further observation and workup. Office Visit 10/31/24 Patient presents for hospital discharge follow up. Patient denies any new or worsening signs or symptoms of stroke. Patient denies any one sided weakness, facial droop, changes in speech or vision. Patient is taking all medications as prescribed. Blood pressure has been controlled Discharged to AR Continued stroke deficits of ataxia, aphagia, dysarthria and right side weakness. Unable to lift arm or leg. Completely aphasic, nonsensical speech. Unable to correctly answer yes/no questions Dysarthria improved and passed for bite sized diet Patient is working with Physical/Occupational/Speech therapy with mild/n improvement. The patient understands the discussed etiology of TIA/stroke with further risk factor management for secondary stroke prevention. PAST MEDICAL HISTORY Diagnosis Date Dyslipidemia Generalized anxiety disorder Anxiety, Generalized Hypertension Mixed hyperlipidemia Hyperlipidemia Obesity Seizures (HCC) Type II or unspecified type diabetes mellitus without mention of complication, not stated as uncontrolled PAST SURGICAL HISTORY Procedure Laterality Date ANESTHESIA ARTHROSCOPIC PROCEDURE ANKLE & FOOT COLONOSCOPY Dr. Omer [facility] NEUROPLASTY &/TRANSPOS MEDIAN NRV CARPAL TUNNE Carpal tunnel decomp FAMILY HISTORY Problem Relation Age of Onset Cancer Mother other (UNKNOWN [Other]) Father Diabetes Brother Social History Tobacco Use Smoking status: Never Smokeless tobacco: Never Substance Use Topics Alcohol use: No Drug use: No MEDICATIONS Current Outpatient Medications Medication Sig atorvastatin (LIPITOR) 40 mg tablet 1 tablet by ORAL/FEEDING TUBE route daily at bedtime. aspirin 81 mg chewable tablet Take 1 tablet by mouth once daily. enoxaparin (LOVENOX) 40 mg/0.4 mL Inject 0.4 mL subcutaneously every 12 hours. losartan (COZAAR) 25 mg tablet Take 3 tablets by mouth once daily. insulin glargine 100 unit/mL (3 mL) Inject 20 Units subcutaneously every morning. insulin lispro (HUMALOG U-100 INSULIN) 100 unit/mL injection Admin Instructions: ADMINISTER CORRECTIONAL INSULIN REGARDLESS OF MEAL OR NUTRITION INTAKE Scale 2 If Blood Glucose (mg/dL) is <110 Give 0 units, 111-150 Give 0 units, 151-200 Give 2 units, 201-250 Give 4 units, 251-300 Give 6 units, 301-350 Give 8 units, 351-400 Give 10 units, >400 give 10units and notify provider. zonisamide (ZONEGRAN) 100 mg capsule Take 2 capsules by mouth daily at bedtime. gabapentin 100 mg tab Take 3 tablets by mouth three times a day for 90 days. OXcarbazepine (TRILEPTAL) 150 mg tablet Take 150 mg by mouth two times a day. COMPOUNDED PRESCRIPTION Knee High Compression Stockings 20-30 mm, DX: Edema and venous insufficiency Blood-Glucose Meter (FREESTYLE LITE METER) monitoring kit Use as instructed. blood sugar diagnostic (FREESTYLE LITE STRIPS) test strip Use as instructed. No current facility-administered medications for this visit. ALLERGIES ALLERGIES No Known Allergies PHYSICAL EXAMINATION There were no vitals taken for this visit. General: Well-developed, well-nourished, in no acute distress. HEENT: Normocephalic, atraumatic. Sclerae anicteric. Oropharynx clear. Neck: No carotid bruit. Heart: Regular rate and rhythm, S1 S2, no murmurs. Lungs: Clear to auscultation bilaterally. Abdomen: Abdomen soft, non-tender. Bowel sounds normal. No masses, organomegaly. Extremities: No edema, cyanosis, or clubbing. 2+ dorsalis pedis pulses bilaterally. Skin: No rash or ecchymoses. Neurological: Awake, alert, oriented to person, place, and time. Speech fluent, no dysarthria. Naming, repetition, recall, comprehension, calculation intact. Good attention and insight into illness. Cranial Nerves: PERRL, extraocular movements intact without nystagmus. Visual cummins full. Facial sensation and movements normal and symmetric. Palate elevates equal bilaterally. Tongue midline. Motor: Left side 5/5, right side 2/5 Sensation: Intact light touch, pinprick, temperature, proprioception, and vibration. Coordination: Rapid alternating movements symmetric on the left, CHRIS RUE. [id number], [id number] without dysmetria on the left, CHRIS RLE. Gait:wheel chair LABS Cholesterol: Cholesterol, Total (mg/dL) Date Value 08/03/2012 174 Total Cholesterol, Nonfasting (mg/dL) Date Value 09/22/2024 193 LDL Cholesterol (mg/dL) Date Value 08/03/2012 Unable to calculate due to increased Triglycerides. See LDL-Chol, Direct. LDL Cholesterol, Nonfasting (no units) Date Value 09/22/2024 Comment: Unable to calculate due to increased Triglycerides. A Direct LDL Cholesterol measurement will not be performed. If clinically indicated, a fasting Basic Lipid Panel (LIPB) may be ordered. HDL Cholesterol (mg/dL) Date Value 08/03/2012 32 HDL Cholesterol, Nonfasting (mg/dL) Date Value 09/22/2024 31 Triglyceride (mg/dL) Date Value 08/03/2012 468 Triglycerides, Nonfasting (mg/dL) Date Value 09/22/2024 641 Diabetes: Hemoglobin A1C (%) Date Value 09/22/2024 9.7 03/13/[address] head non contrast 09/22/2024: left occipital encephalomalacia CTA head and neck 09/22/2024: Left HOUSE SHORER P1 occlusion with distal recanalization MRI brain w/wo contrast 09/23/2024: IMPRESSION: Acute nonhemorrhagic left thalamoperforator territory infarct. Echocardiogram 09/23/2024: CONCLUSIONS: - Technically difficult exam due to suboptimal positioning and body habitus. - Exam indication: Stroke - The left ventricle is normal in size. Left ventricular systolic function is normal. EF = 56 5% (2D 4-ch.) Definity contrast used for endocardial border detection. - The right ventricle is normal in size. Right ventricular systolic function is normal. RV views limited in this study for accurate assessment. - The left atrial cavity is mildly dilated. - The visualized aorta is borderline dilated with a maximal dimension of 3.9 cm. - There are no significant valvular abnormalities. - The patient has not had a prior CC echocardiographic exam for comparison. Bedside EEG monitoring 09/23/2024: Impression: This bedside EEG was recorded from 0124 to 0431 on 09/23/2024 and is suggestive of cortical dysfunction in the left hemisphere and generalized epilepsy. There is also evidence for a mild diffuse encephalopathy. No EEG seizures were seen during this recording. Bedside EEG monitoring 09/24/2024: Impression: This bedside EEG was recorded from 0602 to 1312 on 09/24/2024 and is suggestive of cortical dysfunction in the left hemisphere and generalized epilepsy. There is also evidence for a mild diffuse encephalopathy. No EEG seizures were seen during this recording. Patient Entered Questionnaires PROMIS/NeuroQoL Score Percentiles Percentiles provide an indication of how a patient's score ranks in relation to the [place] general population. > 31st percentile is within normal limits or better * < 31st percentile is at least SD worse than population, which may be clinically relevant < 16th percentile is at least 1 SD worse than population and warrants attention Depression Screening: PHQ-9 Scores: PHQ-9 Self-Harm (Item 9) Response: 0 - 9 No to Mild depression 0 - Not at all 10 - 14 Moderate depression 1 - Several Days > 15 Severe depression 2 - More than half the days 3 - Nearly every day Stroke Mechanism and Scales 09/22/2024 Stroke Mechanism Ischemic Stroke or TIA Ischemic Stroke TOAST Mechanism ([facility]-MODIFIED) Small-Vessel Occlusion ([place]) IMPRESSION Left thalamic infarct felt to be in the setting of small vessel disease due to uncontrolled vascular risk factors. Discharged with Zio. Vessel imaging significant for left HOUSE SHORER P1 occlusion. History of Epilepsy, following with Epilepsy Hypertension, blood pressure controlled Hyperlipidemia, LDL 76 Diabetes, A1c 9.7 PLAN Continue Aspirin daily for secondary stroke prevention. Continue Atorvastatin for secondary stroke prevention and LDL goal below 70. Continue monitoring blood pressure for goal below 130/80. Continue monitoring blood sugar for optimal A1c below 7.0. Continue working with therapy for optimal stroke rehabilitation. Follow up in 3 months to check in on therapy Medical Decision Making: Medical Decision Making Level: 1 - N/A I spent a total of 40 minutes on the date of service which included preparing to see the patient, [id number] patient care, completing clinical documentation, obtaining and/or reviewing separately obtained history, performing a medically appropriate examination, counseling and educating the patient/family/caregiver, ordering medications, tests, or procedures, communicating with other HCPs (not separately reported), independently interpreting results (not separately reported), and communicating results to the patient/family/caregiver SIGNATURE Dodie Irvin APRN.CNP [facility] [id number] Adriana Shaw MD ([facility]) [address] [place] [address] documented in this encounter [facility] 10-31-2024 Note HNO ID: [id number] Author: DODIE IRVIN APRN.CNP Service: ? Author Type: Nurse Practitioner Type: Progress Notes Filed: 10/31/2024 14:18 Note Text: [facility] Established Visit Consultation is requested by: Joe Marie [facility] [id number] PCP: Adriana Shaw MD ([facility]) [address] [place] [address] [facility]EREBR[facility]ASC[facility] HISTORY Evangelista Borrego JR is a 59 year old male. Stroke Event Information [facility] 09/22/24-09/29/24 Mr. Evangelista Borrego is a 59 yo male with a PMH significant for T2DM, LYLE, HLD, seizures on phenytoin who presents as a transfer from OSH for left P1 occlusion. Per OSH records, LKW 9 PM on 09/21 when his son dropped him off at a family members house to help care for another family member. He was found laying on the floor by his son with right side weakness and slurred speech today at 5 PM on 09/22. iNIHSS at OSH was 7 for dysarthria, right hemiparesis, and RUE dysmetria. Patient was alert and conversant upon presentation. BP 150/85. POC 258. Not on AC. CTH with NAP, but demonstrates encephalomalacia in left paramedian occipital lobe. 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 Unclear chronicity of the occlusion. Patient was determined not to be a candidate for TNK given time from LKW. Recommendation was made to give ASA load and keep patient flat. Patient transferred to [facility] SDU for further observation and workup. Office Visit 10/31/24 Patient presents for hospital discharge follow up. Patient denies any new or worsening signs or symptoms of stroke. Patient denies any one sided weakness, facial droop, changes in speech or vision. Patient is taking all medications as prescribed. Blood pressure has been controlled Discharged to [place] Continued stroke deficits of ataxia, aphagia, dysarthria and right side weakness. Unable to lift arm or leg. Completely aphasic, nonsensical speech. Unable to correctly answer yes/no questions Dysarthria improved and passed for bite sized diet Patient is working with Physical/Occupational/Speech therapy with mild/n improvement. The patient understands the discussed etiology of TIA/stroke with further risk factor management for secondary stroke prevention. PAST MEDICAL HISTORY Diagnosis Date Dyslipidemia Generalized anxiety disorder Anxiety, Generalized Hypertension Mixed hyperlipidemia Hyperlipidemia Obesity Seizures (HCC) Type II or unspecified type diabetes mellitus without mention of complication, not stated as uncontrolled PAST SURGICAL HISTORY Procedure Laterality Date ANESTHESIA ARTHROSCOPIC PROCED[facility]TRANSPOS MED[facility] NRV CARPAL TUNNE Carpal tunnel decomp FAMILY HISTORY Problem Relation Age of Onset Cancer Mother other (UNKNOWN [Other]) Father Diabetes Brother Social History Tobacco Use Smoking status: Never Smokeless tobacco: Never Substance Use Topics Alcohol use: No Drug use: No MEDICATIONS Current Outpatient Medications Medication Sig atorvastatin (LIPITOR) 40 mg tablet 1 tablet by ORAL/FEEDING TUBE route daily at bedtime. aspirin 81 mg chewable tablet Take 1 tablet by mouth once daily. enoxaparin (LOVENOX) 40 mg/0.4 mL Inject 0.4 mL subcutaneously every 12 hours. losartan (COZAAR) 25 mg tablet Take 3 tablets by mouth once daily. insulin glargine 100 unit/mL (3 mL) Inject 20 Units subcutaneously every morning. insulin lispro (HUMALOG U-100 INSULIN) 100 unit/mL injection Admin Instructions: ADMINISTER CORRECTIONAL INSULIN REGARDLESS OF MEAL OR NUTRITION INTAKE Scale 2 If Blood Glucose (mg/dL) is <110 Give 0 units, 111-150 Give 0 units, 151-200 Give 2 units, 201-250 Give 4 units, 251-300 Give 6 units, 301-350 Give 8 units, 351-400 Give 10 units, >400 give 10units and notify provider. zonisamide (ZONEGRAN) 100 mg capsule Take 2 capsules by mouth daily at bedtime. gabapentin 100 mg tab Take 3 tablets by mouth three times a day for 90 days. OXcarbazepine (TRILEPTAL) 150 mg tablet Take 150 mg by mouth two times a day. COMPOUNDED PRESCRIPTION Knee High Compression Stockings 20-30 mm, DX: Edema and venous insufficiency Blood-Glucose Meter (FREESTYLE LITE METER) monitoring kit Use as instructed. blood sugar diagnostic (FREESTYLE LITE STRIPS) test strip Use as instructed. No current facility-administered medications for this visit. ALLERGIES ALLERGIES No Known Allergies PHYSICAL EXAMINATION There were no vitals taken for this visit. General: Well-developed, well-nourished, in no acute distress. HEENT: Normocephalic, atraumatic. Sclerae anicteric. Oropharynx clear. Neck: No carotid bruit. Heart: Regular rate and rhythm, S1 S2, no murmurs. Lungs: Clear to auscultation bilaterally. Abdomen: Abdomen soft, non-tender. Bowel sounds normal. No masses, organomegaly. Extremities: No edema (more content not included)... [facility] 10-28-2024 Telephone encounter Note S: Nurse spoke with [facility] nurse regarding fall B: Onset of symptoms/concern tonight A: Nya-Nurse from [facility] for a witnessed fall out of his wheelchair. No loss of consciousness, injury or c/o at this time. Patient was assisted back to wheelchair via fco lift. R: No further needs at this time. Instructed to call back with new or worsening symptoms. Reason for Disposition General information question, no triage required and triager able to answer question Protocols used: Information Only Call - No [id number] [facility] 10-28-2024 Miscellaneous Notes S: Nurse spoke with [facility] nurse regarding fall B: Onset of symptoms/concern tonight A: Nay-Nurse from [facility] for a witnessed fall out of his wheelchair. No loss of consciousness, injury or c/o at this time. Patient was assisted back to wheelchair via fco lift. R: No further needs at this time. Instructed to call back with new or worsening symptoms. Reason for Disposition General information question, no triage required and triager able to answer question Protocols used: Information Only Call - No [id number] documented in this encounter [facility] 10-02-2024 Telephone encounter Note Recent Visits Date Type Provider Dept 05/02/24 Office Visit Nena Pardo DO [facility] Jorge L 03/29/24 Office Visit Nena Pardo DO [facility] Jorge L Showing recent visits within past 365 days and meeting all other requirements Future Appointments Date Type Provider Dept 10/07/24 Appointment Nena Pardo DO [facility] Jorge L Showing future appointments within next 90 days and meeting all other requirements Requested Prescriptions Pending Prescriptions Disp Refills atorvastatin (Lipitor) 20 MG tablet [Pharmacy Med Name: ATORVASTATIN 20 MG TABLET] 90 tablet 3 Sig: TAKE 1 TABLET BY MOUTH EVERY DAY gabapentin (Neurontin) 300 MG capsule [Pharmacy Med Name: GABAPENTIN 300 MG CAPSULE] 90 capsule 5 Sig: TAKE 1 CAPSULE BY MOUTH THREE TIMES A DAY Provider: Nena Pardo DO Verified pharmacy: yes Verified day(s) supplied: yes Verified refill(s) needed (previous prescription showing no refills in chart): Yes Have you received any controlled medications from any other provider? No Overdue for visit: No If yes - patient scheduled? Yes Most recent labs completed in chart? Yes Cholesterol: Lab Results Component Value Date CHOLESTEROLT 169 03/29/2024 HDLCHOLESTER 34 (L) 03/29/2024 TRIGLYCERIDE 237 (H) 03/29/2024 LDLCHOLESTER 99 03/29/2024 CHOLHDLCRATI 5.0 (H) 03/29/2024 NONHDLCHOLES 135 (H) 03/29/2024 [facility] 10-02-2024 Miscellaneous Notes Recent Visits Date Type Provider Dept 05/02/24 Office Visit Nena Pardo DO [facility] 03/29/24 Office Visit Nena Pardo DO [facility] Showing recent visits within past 365 days and meeting all other requirements Future Appointments Date Type Provider Dept 10/07/24 Appointment Nena Pardo DO [facility] Showing future appointments within next 90 days and meeting all other requirements Requested Prescriptions Pending Prescriptions Disp Refills atorvastatin (Lipitor) 20 MG tablet [Pharmacy Med Name: ATORVASTATIN 20 MG TABLET] 90 tablet 3 Sig: TAKE 1 TABLET BY MOUTH EVERY DAY gabapentin (Neurontin) 300 MG capsule [Pharmacy Med Name: GABAPENTIN 300 MG CAPSULE] 90 capsule 5 Sig: TAKE 1 CAPSULE BY MOUTH THREE TIMES A DAY Provider: Nena Pardo DO Verified pharmacy: yes Verified day(s) supplied: yes Verified refill(s) needed (previous prescription showing no refills in chart): Yes Have you received any controlled medications from any other provider? No Overdue for visit: No If yes - patient scheduled? Yes Most recent labs completed in chart? Yes Cholesterol: Lab Results Component Value Date CHOLESTEROLT 169 03/29/2024 HDLCHOLESTER 34 (L) 03/29/2024 TRIGLYCERIDE 237 (H) 03/29/2024 LDLCHOLESTER 99 03/29/2024 CHOLHDLCRATI 5.0 (H) 03/29/2024 NONHDLCHOLES 135 (H) 03/29/2024 documented in this encounter [facility] 09-29-2024 Note HNO ID: [id number] Author: VIVIEN MCARTHUR RN Service: Care Management Author Type: Registered Nurse Type: Care Mgt Progress Note Filed: 09/29/2024 11:38 Note Text: CARE MANAGEMENT DISCHARGE NOTE SERVICE DATE: September 29, 2024 SERVICE TIME: 11:35 AM 59 yr old male patient admitted on 09/22/2024 for Occlusion of left posterior cerebral artery now ready for discharge to next LOC. Received confirmation that patient has bed available at [facility]. Admission Date: 09/22/2024 LOS: 7 days Discharge Arrangement Discharge Arrangement: Acute Rehabilitation Facility Services Arranged Medical Services: Other: See Comment (Acute Rehabilitation) Provider Name: Adriana Shaw PCP - General, Family Medicine Since 08/04/2016 Caregiver Assessment Caregiver is ready, willing and able to meet the patient's needs as recommended by the inter-professional team: Yes Name of Caregiver: [facility] [address] [facility] [address] Transportation Arrangements Transportation Arrangements: Ambulance Transportation Agency and Phone #:: [facility] [phone] Date of Trip: 09/29/24 Time of Trip: 1400 Type of Service: BLS Non-emergency Is Patient Medicaid Pending?: No Was transportation financial coverage discussed with family?: Patient Ward Helper Location: Main [place] Destination: [facility] [address] [facility] [address] Financial Care Management Responsibility: None Handoff Communication: Handoff to: Primary Care Physician, Other Caregiver Primary Care Physician Name/Phone: Adriana Shaw PCP - General, Family Medicine Since 08/04/2016 Other Caregiver Name/Phone: [facility], [facility] [address] [place] [address] Additional Information: Transportation is set with MMT at 2pm Trip # [phone] and facility is aware. RN on Floor is provided with RN Report number, discharge packet is updated to include DC summary and AVS form. Discharge Information Row Name Admission (Current) from 09/22/2024 in HOSP MAIN H[facility] Rehab Facility Agency [facility], [facility] [address] [place] [address] SIGNATURE: Vivien Mcarthur RN PATIENT NAME: Evangelista Borrego JR DATE: September 29, 2024 TIME: 11:34 AM [facility] 09-29-2024 Note HNO ID: [id number] Author: SAADIA MAYES APRN.WARDROBE COORDINATOR Service: Neurology Stroke Author Type: Nurse Practitioner Type: Progress Notes Filed: 09/29/2024 09:52 Note Text: NEURO STROKE PROGRESS NOTE SERVICE DATE: 09/29/2024 SERVICE TIME: 9:54 AM Subjective INTERVAL HISTORY: BP running 123-145 mmHg over the past 24 hours Patient exam stable, awakens more briskly compared to yesterday. He did not state his name today but was able to stick tongue out to command and raise left arm to touch my hand to command. , No seizures since stopping phenytoin. Epilepsy not recommending any changes to AEDs at this time. Endocrine still following for DM control DC to [facility], precert approved, no beds available yesterday. MEDICATIONS: Current medications and allergies reviewed. Recommended/planned medication changes discussed in detail in the A/P section below. Objective PHYSICAL EXAM Vital Signs: BP 150/64 Pulse (!) 53 Temp 36.7 ?C (98.1 ?F) (Oral) Resp 13 Ht 170.2 cm (5' 7) Wt 125.7 kg (277 lb 1.9 oz) SpO2 97% BMI 43.40 kg/m? GENERAL: Awake/easily arousable HEENT: Normocephalic/atraumatic RESPIRATORY: Normal respiratory effort. Clear to auscultation CARDIOVASCULAR: RRR, GI: Soft abdomen, nontender, nondistended without mass. Normal bowel sounds EXTREMITIES: No cyanosis, clubbing or edema. SKIN: Skin color, texture, turgor normal. No rashes or lesions. NEUROLOGICAL: LOC: 0 - alert and responsive 0 LOC Questions: 1 - one correct 1 LOC Commands: 0 - both correct 0 Best Gaze: 1 - partial gaze palsy, abnormal gaze in 1 or both eyes 1 Visual Cummins: 2 - complete hemianopia 2 Facial Palsy: 1 - minor paralysis (normal looking face, asymmetric smile) 1 Motor Left Arm: 0 - no drift 0 Motor Right Arm: 4 - no movement at all 4 Motor Left Le - some antigravity effort but cannot sustain 2 Motor Right Le - no movement at all 4 Limb Ataxia: 0 - no ataxia (or aphasic, hemiplegic) 0 Sensory: 1 - mild to moderate unilateral loss but patient aware of touch (or aphasic, confused) 1 Best Language: 1 - mild-mod aphasia (comprehensible) 1 Dysarthria: 2 - severe, unintelligible or mute 2 Extinction and Inattention: 0 - normal, none detected (or visual loss alone) 0 Daily NIHSS Score: 19 (09/29/24 0951 : Saadia Mayes, ONIEL.WARDROBE COORDINATOR) 19 MENTAL STATUS: Alert, aphasic, patient was able to tell me his name but not place or time. He shook his head no when I asked if he knew was year it was. Was easier to arouse this morning than yesterday. CRANIAL NERVES: PERRLA, left gaze preference that does cross midline, decreased blink to threat on the right, Facial sensation intact, Face asymmetric, + R facial droop or ptosis, Hearing intact to finger rub bilaterally, Tongue protrudes midline, and Shoulder shrug intact on the left MOTOR: Normal tone and Normal bulk MOTOR STRENGTH: strength 5/5 in the LUE. Difficult time assessing strength in LLE. Patient able to spontaneously move leg but has difficult time getting him to hold the leg up. no movement of the RUE/RLE with flaccid paralysis REFLEXES: Not assessed SENSATION: Intact to painful stimuli in all extremities, unable to test extinction due to aphasia COORDINATION: Not assessed due to aphasia and patient not following all commands GAIT: Not assessed due to right sided hemiplegia DATA: Diagnostic tests reviewed for today's visit: Recent Labs 09/29/24 0312 09/28/24 0352 09/27/24 0754 NA 140 143 140 K 3.7 3.6* 3.8 CHLOR 107 107 106 CO2 23 22 24 BUN 18 17 16 CREAT 0.92 0.88 0.94 GLUC 144* 108* 134* CA 9.2 9.1 8.9 P 3.3 2.7 3.1 WBC 6.32 6.29 5.63 HB 13.8 14.4 14.4 HCT 37.9* 41.6 41.8 PLT 189 180 181 Most recent imaging: CT head non contrast 09/22/2024: left occipital encephalomalacia CTA head and neck 09/22/2024: Left HOUSE SHORER P1 occlusion with distal recanalization MRI brain w/wo contrast 09/23/2024: IMPRESSION: Acute nonhemorrhagic left thalamoperforator territory infarct. Echocardiogram 09/23/2024: CONCLUSIONS: - Technically difficult exam due to suboptimal positioning and body habitus. - Exam indication: Stroke - The left ventricle is normal in size. Left ventricular systolic function is normal. EF = 56 ? 5% (2D 4-ch.) Definity contrast used for endocardial border detection. - The right ventricle is normal in size. Right ventricular systolic function is normal. RV views limited in this study for accurate assessment. - The left atrial cavity is mildly dilated. - The visualized aorta is borderline dilated with a maximal dimension of 3.9 cm. - There are no significant valvular abnormalities. - The patient has not had a prior CC echocardiographic exam for comparison. Bedside EEG monitoring 09/23/2024: Impression: This bedside EEG was recorded from 0124 to 0431 on 09/23/2024 and is suggestive of cortical dysfunction in the left hemisphere and generalized epilepsy. There is also e (more content not included)... [facility] 09-28-2024 Note HNO ID: [id number] Author: OSMANI TORRES MD Service: Neurology Adult Epilepsy Author Type: Fellow Type: Plan of Care Filed: 09/28/2024 19:29 Note Text: Epilepsy team contacted because of medication recommendations for upcoming discharge Evangelista Borrego is a 59 yo man currently admitted because of a stroke, with favorable evolution. He also has history of epilepsy, and previous to this admission he was taking Oxcarbazepine 150 mg BID, Zonisamide 200 mg qHS and Gabapentin 300 mg TID. Due to his history and because he is evolving with an acute brain injury he has been connected to BE which has shown no seizures. Otherwise, generalized epileptiform activity was observed. On examination: Patient is arousable but easily falling sleep every time he is not being actively stimulated Unable to follow two step commands or verbally answer to questions No clinical signs suggestive of seizures were observed. Right sided paresis. Plan As no seizures has been recorded, no need to modify the patient treatment seems indicated at this moment. Follow up with primary epileptologist highly recommended. Case and plan of care discussed with Dr Jozef Vergara (epilepsy staff insulation mechanic) Osmani Torres MD Epilepsy fellow [facility] 09-28-2024 Note HNO ID: [id number] Author: NANI PERKINS RT(R) Service: Radiology Author Type: Technologist Type: Progress Notes Filed: 09/28/2024 15:07 Note Text: Radiology Service Progress Note PATIENT NAME: Evangelista Borrego JR DATE OF SERVICE: September 28, 2024 TIME: 3:07 PM PATIENT IDENTITY VERIFICATION COMPLETED USING TWO (2) IDENTIFIERS: Name and Date of confirmed by identification band. FALL SCREENING: Has the patient had 2 falls in the last year or 1 fall with injury or currently using an Ambulatory Assistive Device (Walker, Cane, Wheelchair, Crutches, etc.)? Inpatient: Screened on floor PATIENT GENDER DATA: Assigned male at PATIENT RELEVANT IMPLANT DATA REVIEWED: Yes PATIENT PRESENTS WITH AN IMPLANTABLE OR ATTACHED CLINICAL APPLICATIONS SPECIALIST: No RADIOLOGY DEPARTMENT: CT; Exam(s) Completed: Brain PERIPHERAL IV DATA: Not applicable SIGNED BY: SEDRICK Schwarz)(CT) September 28, 2024 3:07 PM [facility] 09-28-2024 Note HNO ID: [id number] Author: ZAN KENNEDY RN Service: Care Management Author Type: Registered Nurse Type: Care Mgt Progress Note Filed: 09/28/2024 09:21 Note Text: CARE MANAGEMENT PROGRESS NOTE SERVICE DATE: 09/28/2024 SERVICE TIME: 9:21 AM LOS: 6 days Post-Acute Discharge Planning Patient Goal(s): Be able to go home Needs Prior to Discharge: Needs Prior to Discharge: Accepting Facility, Bed Availability, Facility or Agency Choices, OT/PT Evaluation, Precertification, Discharge Transportation Post-Acute Discharge Plan: MONDAY DISCHARGE Per medical team, patient ready for discharge Friday 09/29. Transport rescheduled to 09/29 @ 2 PM, trip # [phone]. D/C packet located by green chart. CM will continue to follow. Please see Treatment Team for Care Management Weekend/Holiday coverage. SIGNATURE: Zan Kennedy RN PATIENT NAME: Evangelista Borrego JR DATE: September 28, 2024 TIME: 9:20 AM [facility] 09-28-2024 Note HNO ID: [id number] Author: SAADIA MAYES APRN.WARDROBE COORDINATOR Service: Neurology Stroke Author Type: Nurse Practitioner Type: Progress Notes Filed: 09/28/2024 09:37 Note Text: NEURO STROKE PROGRESS NOTE SERVICE DATE: 09/28/2024 SERVICE TIME: 9:54 AM Subjective INTERVAL HISTORY: BP running 123-145 mmHg over the past 24 hours Patient exam stable, eyes open to voice, was able to tell me his name. Speech dysarthria. Did not follow commands but able to hold his left arm off the bed without drift and spontaneously adjusted his left leg on the bed. Patient's exam waxes and weans drastically, nurse came in to room not long after I examined the patient and patient was very somnolent and need freq stim to wake back up. Phenytoin stopped yesterday, no seizures captured on BEM overnight. Curbsided epilepsy this AM about whether or not additional AED should be started. Initial conversation, should be ok to continue on current medications. Endocrine still following for DM control Going to hold patient another day. Repeat CT head for waxing and weaning exam. Transport set up for tomorrow. DC to [facility], precert approved, no beds available yesterday. MEDICATIONS: Current medications and allergies reviewed. Recommended/planned medication changes discussed in detail in the A/P section below. Objective PHYSICAL EXAM Vital Signs: BP 138/63 Pulse (!) 54 Temp 36.9 ?C (98.4 ?F) (Oral) Resp 20 Ht 170.2 cm (5' 7) Wt 123.2 kg (271 lb 9.7 oz) SpO2 96% BMI 42.54 kg/m? GENERAL: Awake/easily arousable HEENT: Normocephalic/atraumatic RESPIRATORY: Normal respiratory effort. Clear to auscultation CARDIOVASCULAR: RRR, GI: Soft abdomen, nontender, nondistended without mass. Normal bowel sounds EXTREMITIES: No cyanosis, clubbing or edema. SKIN: Skin color, texture, turgor normal. No rashes or lesions. NEUROLOGICAL: LOC: 0 - alert and responsive 0 LOC Questions: 1 - one correct 1 LOC Commands: 0 - both correct 0 Best Gaze: 1 - partial gaze palsy, abnormal gaze in 1 or both eyes 1 Visual Cummins: 2 - complete hemianopia 2 Facial Palsy: 1 - minor paralysis (normal looking face, asymmetric smile) 1 Motor Left Arm: 0 - no drift 0 Motor Right Arm: 4 - no movement at all 4 Motor Left Le - some antigravity effort but cannot sustain 2 Motor Right Le - no movement at all 4 Limb Ataxia: 0 - no ataxia (or aphasic, hemiplegic) 0 Sensory: 1 - mild to moderate unilateral loss but patient aware of touch (or aphasic, confused) 1 Best Language: 1 - mild-mod aphasia (comprehensible) 1 Dysarthria: 2 - severe, unintelligible or mute 2 Extinction and Inattention: 0 - normal, none detected (or visual loss alone) 0 Daily NIHSS Score: 19 (09/28/24 0936 : Saadia Mayes APRN.WARDROBE COORDINATOR) 19 MENTAL STATUS: Alert, aphasic, patient was able to tell me his name but not place or time. He shook his head no when I asked if he knew was year it was. CRANIAL NERVES: PERRLA, left gaze preference that does cross midline, decreased blink to threat on the right, Facial sensation intact, Face asymmetric, + R facial droop or ptosis, Hearing intact to finger rub bilaterally, Tongue protrudes midline, and Shoulder shrug intact on the left MOTOR: Normal tone and Normal bulk MOTOR STRENGTH: strength 5/5 in the LUE. Difficult time assessing strength in LLE. Patient able to spontaneously move leg but has difficult time getting him to hold the leg up. no movement of the RUE/RLE with flaccid paralysis REFLEXES: Not assessed SENSATION: Intact to painful stimuli in all extremities, unable to test extinction due to aphasia COORDINATION: Not assessed due to aphasia and patient not following all commands GAIT: Not assessed due to right sided hemiplegia DATA: Diagnostic tests reviewed for today's visit: Recent Labs 09/28/24 0352 09/27/24 0754 09/26/24 0738 NA 143 140 141 K 3.6* 3.8 3.8 CHLOR 107 106 104 CO2 22 24 23 BUN 17 16 16 CREAT 0.88 0.94 1.01 GLUC 108* 134* 137* CA 9.1 8.9 9.3 P 2.7 3.1 3.9 WBC 6.29 5.63 6.55 HB 14.4 14.4 15.1 HCT 41.6 41.8 42.9 PLT 180 181 191 Most recent imaging: CT head non contrast 09/22/2024: left occipital encephalomalacia CTA head and neck 09/22/2024: Left HOUSE SHORER P1 occlusion with distal recanalization MRI brain w/wo contrast 09/23/2024: IMPRESSION: Acute nonhemorrhagic left thalamoperforator territory infarct. Echocardiogram 09/23/2024: CONCLUSIONS: - Technically difficult exam due to suboptimal positioning and body habitus. - Exam indication: Stroke - The left ventricle is normal in size. Left ventricular systolic function is normal. EF = 56 ? 5% (2D 4-ch.) Definity contrast used for endocardial border detection. - The right ventricle is normal in size. Right ventricular systolic function is normal. RV views limited in this study for accurate assessment. - The left atrial cavity is mildly dilated. - The visualized aorta is borderline di (more content not included)... [facility] 09-27-2024 Note HNO ID: [id number] Author: HARSH ORTEZ RN Service: Care Management Author Type: Registered Nurse Type: Care Mgt Progress Note Filed: 09/27/2024 14:49 Note Text: CARE MANAGEMENT WEEKEND PLANNING NOTE DISCHARGE OR POSSIBLE DISCHARGE Date/Time: Thursday 09/28 at 2pm Disposition: Rehab Facility - Precert Obtained: Yes Transport: Mode of Transportation: Ambulance Transportation Agency and Phone #: [facility] [phone] . Date of Trip: 09/28 Type of Service: BLS Non-emergency Is Patient Medicaid Pending: No Discussion of financial coverage occurred with N/A . Ward Helper Location: Main [place] Destination: [facility] Financial Care Management Responsibility: None Estimated Charge: N/A Approving Supervisor Tumbling And Rolling: N/A Other Concerns: N/A Please see Treatment Team for Care Management Weekend/Holiday coverage. Precert approved for [facility]. No beds at facility today. BLS transport rescheduled for 4pm tomorrow with MMT - Trip# [phone]. CMAs tasked to complete a DC packet for patient tomorrow. Spouse updated. CM will follow. SIGNATURE: Harsh Ortez RN PATIENT NAME: Evangelista Borrego JR DATE: September 27, 2024 TIME: 2:42 PM PAGER/CONTACT #: [phone] [facility] 09-27-2024 Note HNO ID: [id number] Author: JOE ZAMORA PA-C Service: Neurology Stroke Author Type: Physician Mold Operator Type: Progress Notes Filed: 09/27/2024 14:42 Note Text: NEURO STROKE PROGRESS NOTE SERVICE DATE: 09/27/2024 SERVICE TIME: 9:54 AM Subjective INTERVAL HISTORY: BP running 117-155/57-68 mmHg over the past 24 hours Patient exam stable, still with aphasia, patient attempted to talk but word salad, does follow more 1 step commands today. Was sleepy but did stay awake to eat some. Sleepiness likely from the seizure meds Phenytoin level low at 0.5, will stop and place back on BEM to ensure no seizures. Endocrine still following for DM control [facility], have insurance precert, no bed today. DC likely tomorrow afternoon MEDICATIONS: Current medications and allergies reviewed. Recommended/planned medication changes discussed in detail in the A/P section below. Objective PHYSICAL EXAM Vital Signs: BP 151/66 Pulse (!) 53 Temp 37.1 ?C (98.8 ?F) Resp 17 Ht 170.2 cm (5' 7) Wt 123.2 kg (271 lb 9.7 oz) SpO2 98% BMI 42.54 kg/m? GENERAL: Awake/easily arousable HEENT: Normocephalic/atraumatic RESPIRATORY: Normal respiratory effort. Clear to auscultation CARDIOVASCULAR: RRR, GI: Soft abdomen, nontender, nondistended without mass. Normal bowel sounds EXTREMITIES: No cyanosis, clubbing or edema. SKIN: Skin color, texture, turgor normal. No rashes or lesions. NEUROLOGICAL: LOC: 0 - alert and responsive 0 LOC Questions: 2 - none correct 2 LOC Commands: 0 - both correct 0 Best Gaze: 1 - partial gaze palsy, abnormal gaze in 1 or both eyes 1 Visual Cummins: 2 - complete hemianopia 2 Facial Palsy: 1 - minor paralysis (normal looking face, asymmetric smile) 1 Motor Left Arm: 0 - no drift 0 Motor Right Arm: 4 - no movement at all 4 Motor Left Le - no drift 0 Motor Right Le - no movement at all 4 Limb Ataxia: 0 - no ataxia (or aphasic, hemiplegic) 0 Sensory: 1 - mild to moderate unilateral loss but patient aware of touch (or aphasic, confused) 1 Best Language: 2 - severe aphasia (almost no information exchanged) 2 Dysarthria: 2 - severe, unintelligible or mute 2 Extinction and Inattention: 0 - normal, none detected (or visual loss alone) 0 Daily NIHSS Score: 19 (09/27/24 0951 : Joe Zamora PA-C) 19 MENTAL STATUS: Alert, aphasic, mostly expressive aphasia though patient did attempt to talk but word salad, did not stat name/age/date. Was able to follow simple 1 step commands. CRANIAL NERVES: PERRLA, left gaze preference that does cross midline, decreased blink to threat on the right, Facial sensation intact, Face asymmetric, + R facial droop or ptosis, Hearing intact to finger rub bilaterally, Tongue protrudes midline, and Shoulder shrug intact on the left MOTOR: Normal tone and Normal bulk MOTOR STRENGTH: strength 5/5 in the LUE/LLE, no movement of the RUE/RLE with flaccid paralysis REFLEXES: Not assessed SENSATION: Intact to painful stimuli in all extremities, unable to test extinction due to aphasia COORDINATION: Not assessed due to aphasia and patient not following all commands GAIT: Not assessed due to right sided hemiplegia DATA: Diagnostic tests reviewed for today's visit: Recent Labs 09/27/24 0754 09/26/24 0738 09/25/24 0817 NA 140 141 139 K 3.8 3.8 3.7 CHLOR 106 104 102 CO2 24 23 25 BUN 16 16 14 CREAT 0.94 1.01 0.92 GLUC 134* 137* 168* CA 8.9 9.3 9.5 P 3.1 3.9 4.0 WBC 5.63 6.55 6.63 HB 14.4 15.1 14.7 HCT 41.8 42.9 41.0 PLT 181 191 208 Most recent imaging: CT head non contrast 09/22/2024: left occipital encephalomalacia CTA head and neck 09/22/2024: Left HOUSE SHORER P1 occlusion with distal recanalization MRI brain w/wo contrast 09/23/2024: IMPRESSION: Acute nonhemorrhagic left thalamoperforator territory infarct. Echocardiogram 09/23/2024: CONCLUSIONS: - Technically difficult exam due to suboptimal positioning and body habitus. - Exam indication: Stroke - The left ventricle is normal in size. Left ventricular systolic function is normal. EF = 56 ? 5% (2D 4-ch.) Definity contrast used for endocardial border detection. - The right ventricle is normal in size. Right ventricular systolic function is normal. RV views limited in this study for accurate assessment. - The left atrial cavity is mildly dilated. - The visualized aorta is borderline dilated with a maximal dimension of 3.9 cm. - There are no significant valvular abnormalities. - The patient has not had a prior echocardiographic exam for comparison. Bedside EEG monitoring 09/23/2024: Impression: This bedside EEG was recorded from 0124 to 0431 on 09/23/2024 and is suggestive of cortical dysfunction in the left hemisphere and generalized epilepsy. There is also evidence for a mild diffuse encephalopathy. No EEG seizures were seen during this recording. Bedside EEG monitoring 09/24/2024: Impression: This bedside EEG was recorded f (more content not included)... [facility] 09-26-2024 Note HNO ID: [id number] Author: HARSH ORTEZ, RN Service: Care Management Author Type: Registered Nurse Type: Care Mgt Progress Note Filed: 09/26/2024 17:18 Note Text: CARE MANAGEMENT PROGRESS NOTE SERVICE DATE: 09/26/2024 SERVICE TIME: 1:48 PM LOS: 4 days CM Update Skilled for [facility] out of network with patient's insurance. Called to discuss other options with patient's spouse, and she requested a referral be sent to [facility]. Referral sent, await response. Patient is medically ready for discharge. BLS transport placed in Will Call thru Mon 09/30 - Trip# [phone] Will need accepting facility, precert and transport arranged. CM will follow. Update 4:25pm: Patient has been accepted by [facility] and precert will be submitted. [facility] tasked. Update 5:15: BLS transport scheduled for 4pm tomorrow with MMT - Trip# [id number]. CMAs tasked to complete a DC packet for patient tomorrow. Spouse updated. SIGNATURE: Harsh Ortez RN PATIENT NAME: Evangelista Borrego JR DATE: September 26, 2024 TIME: 1:47 PM [facility] 09-26-2024 Note HNO ID: [id number] Author: JOE ZAMORA PA-C Service: Neurology Stroke Author Type: Physician Mold Operator Type: Progress Notes Filed: 09/26/2024 10:15 Note Text: Documentation Query 09/23/24 MRI Brain ?True restricted diffusion at anterior aspect of left thalamus AND anterior aspect of posterior limb of left internal capsule with T2 hyperintensity AND local mass effect with indentation on third ventricle without obstructive hydrocephalus or abnormal susceptibility compatible with nonhemorrhagic acute infarct in HOUSE SHORER perforating vessel distribution (correlate with history AND CTA results). ? 09/24/24 PMANDR ?presented with RHP and dysarthria to [place] ED on 09/22. LKW 9PM 09/21. He was found to have a left P1 occlusion of unknown chronicity and encephalomalacia in left paramedian occipital lobe on imaging. Transferred to [facility] for further workup and observation.? Please clarify diagnosis associated with the clinical indicators Cerebral edema - not clinically significant Joe Zamora PA-C September 26, 2024 10:15 AM Pager [phone] [facility] 09-26-2024 Note HNO ID: [id number] Author: JOE ZAMORA PA-C Service: Neurology Stroke Author Type: Physician Mold Operator Type: Progress Notes Filed: 09/26/2024 10:15 Note Text: NEURO STROKE PROGRESS NOTE SERVICE DATE: 09/26/2024 SERVICE TIME: 9:45 AM Subjective INTERVAL HISTORY: BP running 123-150/50-70 mmHg over the past 24 hours Patient exam stable, still with aphasia, patient did not talk this morning, though does follow simple 1 step commands, still with significant right sided facial droop and right sided hemiplegia Endocrine still following for DM control Continue dispo planning to AR, DC set for 4 pm pending new precert to [facility]. MEDICATIONS: Current medications and allergies reviewed. Recommended/planned medication changes discussed in detail in the A/P section below. Objective PHYSICAL EXAM Vital Signs: BP 128/60 Pulse 72 Temp 37.8 ?C (100 ?F) (Axillary) Resp 23 Ht 170.2 cm (5' 7) Wt 123.2 kg (271 lb 9.7 oz) SpO2 96% BMI 42.54 kg/m? GENERAL: Awake/easily arousable HEENT: Normocephalic/atraumatic RESPIRATORY: Normal respiratory effort. Clear to auscultation without rhonchi, rales, wheezing. CARDIOVASCULAR: RRR, normal S1, S2 auscultated, no murmur present GI: Soft abdomen, nontender, nondistended without mass. No hepatosplenomegaly. Normal bowel sounds EXTREMITIES: No cyanosis, clubbing or edema. Good capillary refill. SKIN: Skin color, texture, turgor normal. No rashes or lesions. NEUROLOGICAL: LOC: 0 - alert and responsive 0 LOC Questions: 2 - none correct 2 LOC Commands: 0 - both correct 0 Best Gaze: 1 - partial gaze palsy, abnormal gaze in 1 or both eyes 1 Visual Cummins: 0 - no visual loss 0 Facial Palsy: 1 - minor paralysis (normal looking face, asymmetric smile) 1 Motor Left Arm: 0 - no drift 0 Motor Right Arm: 4 - no movement at all 4 Motor Left Le - no drift 0 Motor Right Le - no movement at all 4 Limb Ataxia: 0 - no ataxia (or aphasic, hemiplegic) 0 Sensory: 1 - mild to moderate unilateral loss but patient aware of touch (or aphasic, confused) 1 Best Language: 3 - mute, global aphasia, coma 3 Dysarthria: 2 - severe, unintelligible or mute 2 Extinction and Inattention: 0 - normal, none detected (or visual loss alone) 0 Daily NIHSS Score: 18 (09/26/24 0942 : Joe Zamora PA-C) 18 MENTAL STATUS: Alert, aphasic, mostly expressive aphasia though patient mute this morning, did not stat name/age/date. Was able to follow simple 1 step commands. CRANIAL NERVES: PERRLA, left gaze preference that does cross midline, does not blink to threat on the right, Facial sensation intact, Face asymmetric, + R facial droop or ptosis, Hearing intact to finger rub bilaterally, Tongue protrudes midline, and Shoulder shrug intact on the left MOTOR: Normal tone and Normal bulk MOTOR STRENGTH: strength 5/5 in the LUE/LLE, no movement of the RUE/RLE with flaccid paralysis REFLEXES: Not assessed SENSATION: Intact to painful stimuli in all extremities, unable to test extinction due to aphasia COORDINATION: Not assessed due to aphasia and patient not following all commands GAIT: Not assessed due to right sided hemiplegia DATA: Diagnostic tests reviewed for today's visit: Recent Labs 09/26/24 0738 09/25/24 0817 09/24/24 0215 09/24/24 0214 NA 141 139 137 -- K 3.8 3.7 3.9 -- CHLOR 104 102 100 -- CO2 23 25 24 -- BUN 16 14 11 -- CREAT 1.01 0.92 0.77 -- GLUC 137* 168* 158* -- CA 9.3 9.5 9.5 -- P 3.9 4.0 3.7 -- WBC 6.55 6.63 -- 6.31 HB 15.1 14.7 -- 15.1 HCT 42.9 41.0 -- 41.9 PLT 191 208 -- 233 Most recent imaging: CT head non contrast 09/22/2024: left occipital encephalomalacia CTA head and neck 09/22/2024: Left HOUSE SHORER P1 occlusion with distal recanalization MRI brain w/wo contrast 09/23/2024: IMPRESSION: Acute nonhemorrhagic left thalamoperforator territory infarct. Echocardiogram 09/23/2024: CONCLUSIONS: - Technically difficult exam due to suboptimal positioning and body habitus. - Exam indication: Stroke - The left ventricle is normal in size. Left ventricular systolic function is normal. EF = 56 ? 5% (2D 4-ch.) Definity contrast used for endocardial border detection. - The right ventricle is normal in size. Right ventricular systolic function is normal. RV views limited in this study for accurate assessment. - The left atrial cavity is mildly dilated. - The visualized aorta is borderline dilated with a maximal dimension of 3.9 cm. - There are no significant valvular abnormalities. - The patient has not had a prior CC echocardiographic exam for comparison. Bedside EEG monitoring 09/23/2024: Impression: This bedside EEG was recorded from 0124 to 0431 on 09/23/2024 and is suggestive of cortical dysfunction in the left hemisphere and generalized epilepsy. There is also evidence for a mild diffuse encephalopathy. No EEG seizures were seen during this recording. Bedside EEG monitoring 09/24/2024: Impress (more content not included)... [facility] 09-25-2024 Note HNO ID: [id number] Author: HARSH ORTEZ RN Service: Care Management Author Type: Registered Nurse Type: Care Mgt Progress Note Filed: 09/25/2024 14:35 Note Text: CARE MANAGEMENT PROGRESS NOTE SERVICE DATE: 09/25/2024 SERVICE TIME: 1:45 PM LOS: 3 days CM Update Skilled for AR but spouse chose [facility] SNF. Precert was submitted this morning. [facility] tasked to complete 7000. Attestation progress note is signed and anticipated discharge order placed. [facility] tasked to arranged BLS transport for tomorrow afternoon and to complete a DC packet. CM will follow. Update 2pm: Notified by stroke team that they discussed with spouse that patient would benefit from AR and she is now in agreement. Will call spouse for AR FOC. Update 2:20pm: MMT TRANSPORT SCHEDULED FOR 09/26/24 AT 4:00PM, TRIP# [id number]. *Will need to be updated to new AR location once there is an accepting facility. Update 2:35pm: [facility] to [facility]ert with [facility], and to send a referral to [facility]. SIGNATURE: Harsh Ortez RN PATIENT NAME: Evangelista Borrego JR DATE: September 25, 2024 TIME: 1:44 PM [facility] 09-25-2024 Note HNO ID: [id number] Author: FABIANA DUNAWAY MD, PhD Service: Neurology Stroke Author Type: Physician Type: Progress Notes Filed: 09/26/2024 05:05 Note Text: NEURO STROKE PROGRESS NOTE SERVICE DATE: 09/25/2024 SERVICE TIME: 7:15 AM Subjective Patient Summary: Mr. Evangelista Borrego is a 59 yo male with a PMH significant for T2DM, LYLE, HLD, seizures on phenytoin who presented with RHP and dysarthria to [place] ED on 09/22. LKW 9PM 09/21. He was found to have a left P1 occlusion of unknown chronicity and encephalomalacia in left paramedian occipital lobe on imaging. INTERVAL HISTORY: Overnight events: NAEO Vitals: BP 140-150s/60-70s most of the night, one reading of 180/81, HR 50-60s, 98% on 1L NC Exam: Relatively stable NIHSS 13 (LOCQ 1, RFD 1, RUE 4, RLE 3, BL 2, Dysarthria 2) Labs: BMP and CBC pending, PHT low <0.4, OXC level low at <0.5 Imaging: no new imaging EEG: EEG was recorded from 0602 to 1312 on 09/24/2024 and then discontinued. Suggestive of cortical dysfunction in the left hemisphere and generalized epilepsy. There is also evidence for a mild diffuse encephalopathy. No EEG seizures were seen during this recording. MEDICATIONS: Current medications and allergies reviewed. Recommended/planned medication changes discussed in detail in the A/P section below. Objective PHYSICAL EXAM Vital Signs: BP 157/71 Pulse (!) 57 Temp 37.3 ?C (99.1 ?F) (Oral) Resp 19 Ht 170.2 cm (5' 7) Wt 123.2 kg (271 lb 9.7 oz) SpO2 95% BMI 42.54 kg/m? NEUROLOGICAL: LOC: 0 - alert and responsive 0 LOC Questions: 1 - one correct 1 LOC Commands: 0 - both correct 0 Best Gaze: 0 - normal gaze 0 Visual Cummins: 0 - no visual loss 0 Facial Palsy: 1 - minor paralysis (normal looking face, asymmetric smile) 1 Motor Left Arm: 0 - no drift 0 Motor Right Arm: 4 - no movement at all 4 Motor Left Le - no drift 0 Motor Right Le - no antigravity effort but even minimal movements count 3 Limb Ataxia: 0 - no ataxia (or aphasic, hemiplegic) 0 Sensory: 0 - normal 0 Best Language: 2 - severe aphasia (almost no information exchanged) 2 Dysarthria: 2 - severe, unintelligible or mute 2 Extinction and Inattention: 0 - normal, none detected (or visual loss alone) 0 Daily NIHSS Score: 13 (09/25/24 0821 : Stephen Perry MD) 13 MENTAL STATUS: Alert, oriented to person, place and time and Follows commands with repetitive prompting. Intermittently is able to answer orientation questions. CRANIAL NERVES: PERRLA, EOM's intact, Visual cummins intact to confrontation, Extraocular movements intact, Facial sensation intact, right facial droop which decreases with muscle activation, moderate to significant dysarthria, Tongue protrudes midline, and Shoulder shrug intact and symmetric MOTOR: no movement in RUE, some movement in RLE but no AG. LUE and LLE 5/5 with no drift REFLEXES: Not assessed SENSATION: Intact light touch and nox stim COORDINATION: intact on LUE GAIT: Not assessed DATA: Diagnostic tests reviewed for today's visit: Lipids, HbA1c, Recent Labs 09/22/24 2356 CHOL 193 HDL 31* TG 641* HBA1C 9.7* CMP, CBC, Coags Recent Labs 09/25/24 0817 09/24/24 0215 09/24/24 0214 09/23/24 0558 09/22/24 2356 NA -- 137 -- 139 137 K -- 3.9 -- 3.9 3.6* CHLOR -- 100 -- 102 101 CO2 -- 24 -- 23 23 BUN -- 11 -- 11 11 CREAT -- 0.77 -- 0.83 0.70* GLUC -- 158* -- 200* 186* CA -- 9.5 -- 9.1 8.9 P -- 3.7 -- 3.0 3.2 WBC 6.63 -- 6.31 7.10 5.93 HB 14.7 -- 15.1 14.5 14.1 HCT 41.0 -- 41.9 40.7 39.5 PLT 208 -- 233 230 221 Most recent labs and imaging results. MEDICAL EVENTS: No medical events have been recorded. STROKE 9 CARE AND PREVENTION CHECKLIST 1. Is the patient currently on an ANTITHROMBOTIC medication (Antiplatelet or Anticoagulant): Aspirin 2. Does the patient have known AFIB/FLUTTER: No 3. Is the patient on a STATIN: Atorvastatin 40 mg 4. Is the patient on VTE prophylaxis: Pharmacological prophylaxis Pharmacological intervention type: Lovenox 5. GLYCEMIC Control Medications: BG well controlled 6. Stroke BP Goals: SBP 130-160 Stroke BP Control: BP well controlled 7. Stroke IVF/Nutrition: Diet 8. TEMPERATURE Control: Normothermic 9. Does the patient need THERAPY: Yes Therapy Service Involvement: PT, ST, OT Stroke Care and Prevention (personally reviewed by Stephen Perry MD): Daily Rounding Date: 09/25/24 Daily Rounding Time: 0803 Stroke Mechanism Daily NIHSS Score: 13 Assessment AND Plan Problem List Occlusion of left posterior cerebral artery (POA: Yes) Occlusion and stenosis of left posterior cerebral artery (POA: Status not on file) Dysphagia (POA: Status not on file) Cerebrovascular accident (CVA) due to occlusion of left posterior cerebral artery (HCC) (POA: Status not on file) Essential (primary) hypertension (POA: Status not on file) Obesity, Class III, BMI >= 40 (POA: Status not on file) Alteration in self-care ab (more content not included)... [facility] 09-24-2024 Note HNO ID: [id number] Author: CLAUDE KOVACS DO Service: Care Management Author Type: Resident Type: Care Mgt Progress Note Filed: 09/24/2024 16:03 Note Text: CARE MANAGEMENT PROGRESS NOTE SERVICE DATE: 09/24/2024 SERVICE TIME: 4:00 PM LOS: 2 days Physician Certification of Less Than 30 Days Skilled Needs Earliest Possible Discharge Date: 09/24/24 To the best of my knowledge, all information provided about the individual is a true and an accurate reflection of Evangelista Borrego JR's needs. I certify that following the inpatient level of care, a post-acute nursing facility stay is required for less than 30 days related to the condition(s) for which the patient was treated during the inpatient level of care: Principal Problem: Occlusion of left posterior cerebral artery Active Problems: Occlusion and stenosis of left posterior cerebral artery Dysphagia Cerebrovascular accident (CVA) due to occlusion of left posterior cerebral artery (HCC) Essential (primary) hypertension Obesity, Class III, BMI >= 40 Alteration in self-care ability Impaired mobility At risk for falls Resolved Problems: * No resolved hospital problems. * Attending Physician: Fabiana Dunaway MD PHD SIGNATURE: Harsh Ortez RN PATIENT NAME: Evangelista Borrego JR DATE: September 24, 2024 TIME: 3:59 PM Claude Kovacs DO [facility] 09-24-2024 Note HNO ID: [id number] Author: HARSH ORTEZ RN Service: Care Management Author Type: Registered Nurse Type: Care Mgt Progress Note Filed: 09/24/2024 14:36 Note Text: CARE MANAGEMENT PROGRESS NOTE SERVICE DATE: 09/24/2024 SERVICE TIME: 2:31 PM LOS: 2 days CM Update Skilled for AR. Called and spoke with patient's Spouse who requested a referral be sent to [facility]. Explained the difference in LOC between SNF and AR. Spouse verbalized understanding and wishes to proceed with SNF referral. [facility] build and send referral. Await response. Anticipate medically ready for discharge tomorrow. Will need: accepting facility, precert and transport arranged. Oxygen 2L NC. Soft and Bite-Sized with Mildly Thick/[place] Thick liquids. CM will follow. SIGNATURE: Harsh Ortez RN PATIENT NAME: Evangelista Borrego JR DATE: September 24, 2024 TIME: 2:31 PM [facility] 09-24-2024 Note HNO ID: [id number] Author: FABIANA DUNAWAY MD, PhD Service: Neurology Stroke Author Type: Physician Type: Progress Notes Filed: 09/25/2024 05:50 Note Text: NEURO STROKE PROGRESS NOTE SERVICE DATE: 09/24/2024 SERVICE TIME: 7:15 AM Subjective Patient Summary: Mr. Evangelista Borrego is a 59 yo male with a PMH significant for T2DM, LYLE, HLD, seizures on phenytoin who presented with RHP and dysarthria to [place] ED on 09/22. LKW 9PM 09/21. He was found to have a left P1 occlusion of unknown chronicity and encephalomalacia in left paramedian occipital lobe on imaging. 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 NIHSS 12 (RFD 1, RUE 4, RLE 2, BL 2, Dysarthria 2) Labs: BMP and CBC stable, PHT <0.4, OXC pending Imaging: MRI brain wo: Acute nonhemorrhagic left thalamoperforator territory infarct. EEG: pending MEDICATIONS: Current medications and allergies reviewed. Recommended/planned medication changes discussed in detail in the A/P section below. Objective PHYSICAL EXAM Vital Signs: BP 155/67 Pulse (!) 58 Temp 36.7 ?C (98 ?F) (Oral) Resp 19 Ht 170.2 cm (5' 7) Wt 128.5 kg (283 lb 4.7 oz) SpO2 98% BMI 44.37 kg/m? NEUROLOGICAL: LOC: 0 - alert and responsive 0 LOC Questions: 1 - one correct 1 LOC Commands: 0 - both correct 0 Best Gaze: 0 - normal gaze 0 Visual Cummins: 0 - no visual loss 0 Facial Palsy: 1 - minor paralysis (normal looking face, asymmetric smile) (RFD) 1 (RFD) Motor Left Arm: 0 - no drift 0 Motor Right Arm: 4 - no movement at all 4 Motor Left Le - no drift 0 Motor Right Le - some antigravity effort but cannot sustain 2 Limb Ataxia: 0 - no ataxia (or aphasic, hemiplegic) 0 Sensory: 0 - normal 0 Best Language: 2 - severe aphasia (almost no information exchanged) 2 Dysarthria: 2 - severe, unintelligible or mute 2 Extinction and Inattention: 0 - normal, none detected (or visual loss alone) 0 Daily NIHSS Score: 12 (09/24/24 0757 : Stephen Perry MD) 12 MENTAL STATUS: Alert, oriented to person, place and time and Follows commands with repetitive prompting. Intermittently is able to answer orientation questions. CRANIAL NERVES: PERRLA, EOM's intact, Visual cummins intact to confrontation, Extraocular movements intact, Facial sensation intact, right facial droop which decreases with muscle activation, moderate to significant dysarthria, Tongue protrudes midline, and Shoulder shrug intact and symmetric MOTOR: no movement in RUE, some AG in RLE. LUE and LLE 5/5 with no drift REFLEXES: Not assessed SENSATION: Intact light touch and nox stim COORDINATION: intact on LUE GAIT: Not assessed DATA: Diagnostic tests reviewed for today's visit: Lipids, HbA1c, Recent Labs 09/22/24 2356 CHOL 193 HDL 31* TG 641* HBA1C 9.7* CMP, CBC, Coags Recent Labs 09/24/24 0215 09/24/24 0214 09/23/24 0558 09/22/24 2356 NA 137 -- 139 137 K 3.9 -- 3.9 3.6* CHLOR 100 -- 102 101 CO2 24 -- 23 23 BUN 11 -- 11 11 CREAT 0.77 -- 0.83 0.70* GLUC 158* -- 200* 186* CA 9.5 -- 9.1 8.9 P 3.7 -- 3.0 3.2 WBC -- 6.31 7.10 5.93 HB -- 15.1 14.5 14.1 HCT -- 41.9 40.7 39.5 PLT -- 233 230 221 Most recent labs and imaging results. MEDICAL EVENTS: No medical events have been recorded. STROKE 9 CARE AND PREVENTION CHECKLIST 1. Is the patient currently on an ANTITHROMBOTIC medication (Antiplatelet or Anticoagulant): Aspirin 2. Does the patient have known AFIB/FLUTTER: No 3. Is the patient on a STATIN: Atorvastatin 40 mg 4. Is the patient on VTE prophylaxis: Pharmacological prophylaxis Pharmacological intervention type: Lovenox 5. GLYCEMIC Control Medications: BG well controlled 6. Stroke BP Goals: Permissive HTN (treat if >220/120) Stroke BP Control: BP well controlled 7. Stroke IVF/Nutrition: NPO except med 8. TEMPERATURE Control: Normothermic 9. Does the patient need THERAPY: Yes Therapy Service Involvement: PT, ST, OT Stroke Care and Prevention (personally reviewed by Stephen Perry MD): Daily Rounding Date: 09/24/24 Daily Rounding Time: 0803 Stroke Mechanism Daily NIHSS Score: 12 Assessment AND Plan Problem List Occlusion of left posterior cerebral artery (POA: Yes) Occlusion and stenosis of left posterior cerebral artery (POA: Status not on file) Dysphagia (POA: Status not on file) Cerebrovascular accident (CVA) due to occlusion of left posterior cerebral artery (HCC) (POA: Status not on file) Essential (primary) hypertension (POA: Status not on file) Obesity, Class III, BMI >= 40 (POA: Status not on file) Alteration in self-care ability (POA: Status not on file) Impaired mobility (POA: Status not on file) At risk for falls (more content not included)... [facility] 09-23-2024 Note HNO ID: [id number] Author: HARSH ORTEZ, RN Service: Care Management Author Type: Registered Nurse Type: Care Mgt Initial Assessment Filed: 09/23/2024 16:34 Note Text: CARE MANAGEMENT: ASSESSMENT AND DISCHARGE PLAN SERVICE DATE: September 23, 2024 SERVICE TIME: 4:26 PM PCP: Adriana Shaw MD Primary Contact: Extended Emergency Contact Information Primary Emergency Contact: Arelis Borrego Mobile Relation: Spouse Secondary Emergency Contact: Evangelista Borrego Mobile Relation: Son Admission Status: Inpatient Insurance Provider: [facility] [employer] Discharge Planning requested by: Per Department Practice Potential Transition Plans Rehab Facility Advance Directives Current Advance Directive: None Medicine Man Attempted to Assist with AD Completion: No Unable to Assist Due To:: Other: See Comment (Per bedside RN patient talking in word salad) Action: Other: See Comment (Unable to get in contact with pt..) Current Living Arrangements and Support Lives with: Spouse/significant other, Children Type of Residence: Private Residence (House) Does the patient have to climb stairs at home?: Yes, stairs outside the home Support: Spouse/significant other, Children How do you manage to accomplish the following: Independent: Ambulation, Bathe/Shower, Dress, Meals/Meal Prep, Going to the bathroom, Medication Management Dependent: Transportation to appointments/community Current Services/Equipment Current Post-Acute Service(s): None Discharge Planning Patient Goal(s): Be able to go home Proven[place] of Choice Explained: Provencal of Choice Given: Yes Reason Not Given: Unable to complete with this assessment - revisit Level of Care Discussed: Inpatient Rehab Facility Are you interested in bedside delivery of your medications? No Discharge Planning Participant(s): Patient, Spouse/significant other Patient/Family Comments: Caregiver Assessment: Caregiver is ready, willing and able to meet the patient's needs as recommended by the inter-professional team: Yes Name of Caregiver: Spouse and children available to assist patient at home following Acute Rehab stay Transport at Discharge: Transportation Arrangements: Ambulance Needs Prior to Discharge: Needs Prior to Discharge: Accepting Facility, Bed Availability, Facility or Agency Choices, OT/PT Evaluation, Precertification, Discharge Transportation Post-Acute Discharge Plan: Per Medical Record: 59 yo male with a PMH significant for T2DM, LYLE, HLD, seizures on phenytoin who presents as a transfer from OSH for left P1 occlusion. Called and spoke with patient's spouse. Introduced myself and the role of CM. Patient lives with his Spouse and 3 children in a single family home with stairs. Bedroom and full bath on first level. 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 No prior DME, home oxygen or CPAP use. Patient is currently unemployed (trying to get disability), manages his own medications and does not drive d/t history of epilepsy. Son provides transportation. PT has skilled for AR. OT/PMANDR pending. Discussed with Spouse, and a facility list was sent to her via text at: [phone]. Await choices. Anticipate medically ready for discharge tomorrow. Will need: accepting facility, precert and transport arranged. CM will follow. SIGNATURE: Harsh Ortez RN PATIENT NAME: Evangelista Borrego JR DATE: September 23, 2024 TIME: 4:25 PM [facility] 09-23-2024 Note HNO ID: [id number] Author: JB STAPLES ? Service: Pharmacy Author Type: Chairman & Ceo Type: Plan of Care Filed: 09/23/2024 15:36 Note Text: Insurance investigation completed Patient has active prescription insurance: Yes - Patient's insurance is in-network with F Insurance loaded into [place]: Yes Test claim was completed to verify insurance is active: Successful Any questions, please reach out to your medication tutor coordinator. [facility] 09-23-2024 Note HNO ID: [id number] Author: NANI MCDANIEL RN Service: Care Management Author Type: Registered Nurse Type: Care Mgt Progress Note Filed: 09/23/2024 12:39 Note Text: CARE MANAGEMENT PROGRESS NOTE SERVICE DATE: 09/23/2024 SERVICE TIME: 1236 LOS: 1 day Needs Prior to Discharge: To Be Determined, OT/PT Evaluation, Patient/Family Current Advance Directive: None Medicine Man Attempted to Assist with AD Completion: Yes Action: Other: See Comment (Unable to get in contact with pt..) Caregiver is ready, willing and able to meet the patient's needs as recommended by the inter-professional team: Other: See Comment (TBD) [place] of Choice Given: No Reason Not Given: Unable to complete with this assessment - revisit Transportation Arrangements: To Be Determined This CM attempted to complete initial assessment. A call was placed to pt.'s Spouse Arelis ). Call not answered. CM unable to leave a voicemail as service is restricted or not available. Assigned CM Nicolás Ortez made aware of the above. SIGNATURE: Nani Mcdaniel RN PATIENT NAME: Evangelista Borrego JR DATE: September 23, 2024 TIME: 12:36 PM [facility] 09-23-2024 Note HNO ID: [id number] Author: LASHAY TSE RPh Service: Pharmacy Author Type: Pharmacist Type: Plan of Care Filed: 09/23/2024 16:03 Note Text: PHARMACY MEDICATION REVIEW Patient Name: Evangelista Borrego JR : 1965 The following medications were updated within the CONSTRUCTION TECHNICIAN medication list: Medications ADDED to CONSTRUCTION TECHNICIAN medication list atorvastatin (LIPITOR) 20 mg tablet Take 20 mg by mouth once daily. Medications CHANGED on CONSTRUCTION TECHNICIAN medication list gabapentin (NEURONTIN) 600 mg tablet Take 600 mg by mouth changed to gabapentin (NEURONTIN) 300 mg capsule Take 300 mg by mouth three times a day. meloxicam 15 mg tablet Take 1 tablet by mouth once daily. Take with food. Changed to 15 mg ORAL ONCE DAILY NEEDED, pain, Mild Pain (1-3) metFORMIN (GLUCOPHAGE) 850 mg tablet Take one(1) tablet twice daily changed to metFORMIN ER (GLUCOPHAGE XR) 750 mg 24 hr tablet Take 750 mg by mouth daily with dinner. OXcarbazepine 600 mg tablet Take 1 tablet by mouth twice daily changed to OXcarbazepine (TRILEPTAL) 150 mg tablet Take 150 mg by mouth two times a day. phenytoin SR (DILANTIN) 100 mg ER capsule 3 capsules twice daily changed to TAKE 2 CAPSULES BY MOUTH EVERY MORNING, 2 CAPSULES DAILY WITH LUNCH, AND 1 CAPSULE EVERY EVENING Medications REMOVED from CONSTRUCTION TECHNICIAN medication list cyclobenzaprine (FLEXERIL) 10 mg tablet Take 10 mg by mouth three times a day as needed. for Muscle Spasm Additional comments: Difficulty obtaining medication history due to dysarthria and aphasia. Attempted to call at , however it immediately stated phone number is restricted / unavailable. Today at bedside, stroke fellow asked patient if they were taking any medications to which they report no, however patient has recent dispenses for medication and an attempt was made to call to confirm medication list. Based on chart review of office visits, medication list appears consistent. Per RN Tash, She called earlier for an update and I asked about his medications she said As far as I know he takes them Unfortunately I don't have any other numbers for anyone - if they call again I will take down the number, pass it along AND update the info in his chart PDMP report: Gabapentin - Last filled gabapentin 300mg #90 x 30 days on 08/27/2024 per PDMP report, consistetly filled since 03/29/2024 - take 1 capsule by mouth three times a day Dispense history report: Atorvastatin - Last filled atorvastatin 20mg #60 x 60 days on 07/30/2024 - take 1 tablet by mouth every day Meloxicam - Last filled meloxicam 15mg #30 x 30 days on 06/25/2024 - TAKE 1 TABLET (15 MG) BY MOUTH NEEDED FOR MILD PAIN (1-3) Metformin - Last filled metformin ER 750mg #90 x 90 days on 06/27/2024 - TAKE 1 TABLET BY MOUTH EVERY DAY WITH AN EVENING MEAL Oxcarbazepine - Last filled oxcarbazepine 150mg #180 x 90 days on 07/30/2024 - take 1 tablet by mouth twice a day Phenytoin - Last filled phenytoin sodium ER 100mg #450 x 90 days on 07/31/2024 - TAKE 2 CAPSULES BY MOUTH EVERY MORNING AND 2 CAPSULES DAILY WITH LUNCH AND 1 CAPSULE EVERY EVENING The below information represents the best possible medication history: Yes Medication history completed by: Pharmacist: Lashay Tse RPh Source of history: Patient: Reliability of source: unable to provide, Family: Reliability of source: see additional comments above , [facility], and [facility] Medication nonadherence identified: Unable to assess Reconciliation completed: Yes Completed by: Lashay Tse RPh All CONSTRUCTION TECHNICIAN medications addressed by LIP Patient interested in Bedside Delivery Services or using [facility] OP Pharmacy at discharge? Unable to assess Preferred outpatient pharmacy: [facility] [employer] [address] - [place] [address] - [address] [facility] [phone] e- [id number] [place] [address] - [address] [facility]. - [phone] [facility] [phone] e- [id number] [place] [address] - [address] [facility] [phone] Allergies: No Known Allergies Prior to Admission Medications Prescriptions Last Dose Informant Patient Reported? Taking? Blood-Glucose Meter (FREESTYLE LITE METER) monitoring kit Unknown No No Sig: Use as instructed. COMPOUNDED PRESCRIPTION Unknown No No Sig: Knee High Compression Stockings 20-30 mm, DX: Edema and venous insufficiency OXcarbazepine (TRILEPTAL) 150 mg tablet Yes Yes Sig: Take 150 mg by mouth two times a day. atorvastatin (LIPITOR) 20 mg tablet Yes Yes Sig: Take 20 mg by mouth once daily. blood sugar diagnostic (FREESTYLE LITE STRIPS) test strip Unknown No No Sig: Use as instructed. gabapentin (NEURONTIN) 300 mg capsule Yes Yes Sig: Take 300 mg by mouth three times a day. meloxicam 15 mg tablet No Yes Sig: Take 1 tablet by mouth once daily. Take with food. Patient taking differently: Take 15 mg by mouth once daily as needed for pain (Mild Pain (1-3 (more content not included)... [facility] 09-22-2024 Note Exam Date Time Procedure Performing Provider Status 09/22/24 7:09 PM XR Chest 1 View CHON YATES MD; Au th (Verified) [id number] ORIGINAL EXAMINATION: ONE XRAY VIEW OF THE CHEST09/22/2024 7:09 pm COMPARISON: 03/26/2016 HISTORY: ORDERING SYSTEM PROVIDED HISTORY: Reason for Exam: chest pain/SOB FINDINGS: Cardiomediastinal contours are within normal limits. Low lung volumes with associated bronchovascular crowding. Pulmonary vascular prominence. Haziness in the lungs. Multilevel degenerative changes of the visualized spine. IMPRESSION: Suboptimal exam due to patient body habitus and low lung volumes. Pulmonary vascular prominence. Haziness to the lungs which could be artifactual or reflect airspace disease. I have personally reviewed the images of this examination and agree with the resident's findings and interpretation. Interpreted by: Chon Yates Preliminary Report By: Megan Berry Electronically signed By Chon Yates Dictated Date: 09/22/2024 7:14:29 PM Prelim Date: 09/22/2024 7:17:47 PM Sign Date: 09/22/2024 7:23:01 PM Ordering Provider[facility] NoteHNO ID: [id number] Author: JOSE ARANGO MD Service: ? Author Type: Fellow Type: Progress Notes Filed: 09/22/2024 19:32 Note Text: Stroke [facility] Evangelista Borrego Jr. T2DM, seizures on phenytoin, HLD who is in the [place] ED. LKW 9 pm 09/21 dropped off to care for a family member last night. Found 5 pm lying on the floor weak on the right side. NIHSS 7 for dysarthria, right hemiparesis but both limbs are antigravity, RUE dysmetria. Patient is conversant. 150/85. POC 258. No thinners. Noncontrast CT read as no acute process but encephalomalacia in left paramedian occipital lobe. Per report, CTA shows occluded left P1 with reconstitution in P2/P3 by collaterals. Unclear chronicity of the occlusion. Not a candidate for lysis given time from LKW. Images are currently not available for review. Recommended giving an ASA load and keeping the patient flat. Have accepted patient Level 1 to SDU. Jose Arango MD Stroke Fellow Staff: [facility] History of Present illness Narrative* Jose Arango MD - 09/22/2024 7:09 PM EST Stroke [facility] Evangelista Borergo Jr. T2DM, seizures on phenytoin, HLD who is in the [place] ED. LKW 9 pm 09/21 dropped off to care for a family member last night. Found 5 pm lying on the floor weakon the right side. NIHSS 7 for dysarthria, right hemiparesis but both limbs are antigravity, RUE dysmetria. Patient is conversant. 150/85. POC 258. No thinners. Noncontrast CT read as no acute process but encephalomalacia in left paramedian occipital lobe. Per report, CTA shows occluded left P1 with reconstitution in P2/P3 by collaterals. Unclear chronicity of the occlusion. Not a candidate for lysis given time from LKW. Images are currently not available for review. Recommended giving an ASA load and keeping the patient flat. Have accepted patient Level 1 to SDU. Jose Arango MD Stroke Fellow Staff: Dr. Corral documented in [facility]Tri[facility] Note* Exam Date Time Procedure Performing Provider Status 09/22/24 7:[address] Angiography Neck w/ Contrast MARINA VÁZQUEZ DO; Auth (Verified) [id number] ORIGINAL EXAMINATION: CTA OF THE NECK 09/22/2024 7:01 pm TECHNIQUE: CTA of the neck was performed with the administration of intravenous contrast. Multiplanar reformatted images are provided for review. MIP images are provided for review. Stenosis of the internal carotid arteries measured using NASCET criteria. Automated exposure control, iterative reconstruction, and/or weight based adjustment of the mA/kV was utilized to reduce the radiation dose to as low as reasonably achievable. COMPARISON: Concurrent CTA head. HISTORY: ORDERING SYSTEM PROVIDED HISTORY: Reason for Exam: Stroke Emergency FINDINGS: AORTIC ARCH/ARCH VESSELS: No dissection or arterial injury. No significant stenosis of the brachiocephalic or subclavian arteries. CAROTID ARTERIES: Atherosclerotic changes and distal cervical ICA tortuosity without dissection, arterial injury, or hemodynamically significant stenosis by NASCET criteria. VERTEBRAL ARTERIES: Codominant. No dissection, arterial injury, or significant stenosis. SOFT TISSUES: The lung apices are clear. No cervical or superior mediastinal lymphadenopathy. The larynx and pharynx are unremarkable. No acute abnormality of the salivary and thyroid glands. BONES: No acute osseous abnormality. IMPRESSION: No large vessel occlusion or hemodynamically significant stenosis. Interpreted by: Marina Vázquez Preliminary Report By: Marina Vázquez Electronically signed By Marina Vázquez Dictated Date: 09/22/2024 7:03:30 PM Prelim Date: 09/22/2024 7:07:44 PM Sign Date: 09/22/2024 7:07:44 PM Ordering Provider: CASSIE SMITH [facility]03-02-2025 Note* Exam Date Time Procedure Performing Provider Status 09/22/24 6:50 PM EKG [ED AOH] - CASSIE SMITH MD; [facility] (Verified) ECG Final Report Sinus rhythm Nonspecific IVCD with LAD Left ventricular hypertrophy Inferior infarct, old Electronic Signature: CASSIE SMITH MD 09/22/2024 18:53:55 [facility]03-02-2025 Note* Exam Date Time Procedure Performing Provider Status 09/22/24 6:[address] Angiography Head w/ Contrast CHON BROWN MD; Auth (Verified) [id number] ORIGINAL EXAMINATION: CTA OF THE HEAD WITH CONTRAST 09/22/2024 6:49 pm: TECHNIQUE: CTA of the head/brain was performed with the administration of intravenous contrast. Multiplanar reformatted images are provided for review. MIP images are provided for review. Automated exposure control, iterative reconstruction, and/or weight based adjustment of the mA/kV was utilized to reduce the radiation dose to as low as reasonably achievable. COMPARISON: CT head performed same day. HISTORY: ORDERING SYSTEM PROVIDED HISTORY: Reason for Exam: Stroke Emergency FINDINGS: ANTERIOR CIRCULATION: No significant stenosis of the intracranial internal carotid, anterior cerebral, or middle cerebral arteries. No aneurysm. 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 Otherwise, no significant stenosis of the vertebral, basilar, or posterior cerebral arteries. No aneurysm. 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 Communicated results to Dr. Edwin Smith at 09/22/2024. Interpreted by: Chon Yates Preliminary Report By: Chon Yates Electronically signed By Chon Yates Dictated Date: 09/22/2024 6:51:33 PM Prelim Date: 09/22/2024 6:57:43 PM Sign Date: 09/22/2024 6:57:43 PM Ordering Provider: CASSIE SMITH [facility]03-02-2025 Note* Exam Date Time Procedure Performing Provider Status 09/22/24 6:[address] Head or Brain w/o Contrast CHON YATES MD; Modified [id number] ADDENDUM ADDENDUM: After review of CTA of the head, given left posterior cerebral artery large vessel occlusion, the transcortical hypodensity in the left paramedian occipital lobe is strictly age indeterminate. Changes of this report, as well as communication of the left HOUSE SHORER P1 segment occlusion, was communicated to Dr. Edwin Smith at 6:56 p.m. on 09/22/2024. Interpreted by: Chon Yates Preliminary Report By: Chon Yates Electronically signed By Chon Yates Dictated Date: 09/22/2024 6:58:00 PM Prelim Date: 09/22/2024 6:59:35 PM Sign Date: 09/22/2024 6:59:35 PM Ordering Provider: CASSIE SMITH ORIGINAL EXAMINATION: CT OF THE HEAD WITHOUT CONTRAST 09/22/2024 6:37 pm TECHNIQUE: CT of the head was performed without the administration of intravenous contrast. Automated exposure control, iterative reconstruction, and/or weight based adjustment of the mA/kV was utilized to reduce the radiation dose to as low as reasonably achievable. COMPARISON: MRI of the brain May 11, 2021 HISTORY: ORDERING SYSTEM PROVIDED HISTORY: Reason for Exam: change in mental status/weakness/aphasia FINDINGS: BRAIN/VENTRICLES: There is no acute intracranial hemorrhage, mass effect or midline shift. No abnormal extra-axial fluid collection. Small area of encephalomalacia in the left paramedian occipital lobe. There is no evidence of hydrocephalus. ORBITS: The visualized portion of the orbits demonstrate no acute abnormality. SINUSES: The visualized paranasal sinuses and mastoid air cells demonstrate no acute abnormality. SOFT TISSUES/SKULL: No acute abnormality of the visualized skull. IMPRESSION: No acute intracranial hemorrhage, mass effect or midline shift. Small area of encephalomalacia in the left paramedian occipital lobe. Interpreted by: Chon Yates Preliminary Report By: Chon Yates Electronically signed By Chon Yates Dictated Date: 09/22/2024 6:43:27 PM Prelim Date: 09/22/2024 6:46:32 PM Sign Date: 09/22/2024 6:46:32 PM Ordering Provider: CASSIE SMITH [facility]01-07-2025 Telephone encounter Note* Telephone Encounter - Ashely Pedersonn - 07/30/2024 4:35 PM EST Ordering provider: Miquel Date of last office visit: 05/02/2024 Date of next office visit: 08/08/2024 Updated/Validated preferred pharmacy: Yes Patient instructed to contact the pharmacy prior to picking up the medication: Yes (1) Medication name: Phenytoin ER Medication dosage: 100 mg (Miligrams Monthly quantity needed: 150 capsule How many day supply requestin days Medication route: oral (PO) Medication administration time(s): N/A If taking medication PRN, reason for taking medication: N/A If this is a controlled substance do you receive this or any other controlled medication from any other doctor or facility: No Date of last refill (see medication tab): [facility]/[address] [id number] Miscellaneous Notes* Telephone Encounter - Ashely Thakur - 07/30/2024 4:35 PM EST Ordering provider: Miquel Date of last office visit: 05/02/2024 Date of next office visit: 08/08/2024 Updated/Validated preferred pharmacy: Yes Patient instructed to contact the pharmacy prior to picking up the medication: Yes (1) Medication name: Phenytoin ER Medication dosage: 100 mg (Miligrams Monthly quantity needed: 150 capsule How many day supply requestin days Medication route: oral (PO) Medication administration time(s): N/A If taking medication PRN, reason for taking medication: N/A If this is a controlled substance do you receive this or any other controlled medication from any other doctor or facility: No Date of last refill (see medication tab): 03/29/2024 documented in this [facility]01-07-2025 Telephone encounter Note* Telephone Encounter - Kimberly Bob MA - 07/30/2024 3:19 PM EST Recent Visits Date Type Provider Dept 05/02/24 Office Visit Nena Pardo DO [facility] Jorge L 03/29/24 Office Visit Nena Pardo DO [facility] Jorge L Showing recent visits within past 365 days and meeting all other requirements Future Appointments Date Type Provider Dept 08/08/24 Appointment Nena Pardo DO [facility] Showing future appointments within next 90 days and meeting all other requirements Requested Prescriptions Pending Prescriptions Disp Refills OXcarbazepine (Trileptal) 150 MG tablet [Pharmacy Med Name: OXCARBAZEPINE 150 MG TABLET] 180 tablet1 Sig: TAKE 1 TABLET BY MOUTH 2 TIMES DAILY Provider: Nena Pardo DO Verified pharmacy: yes Verified day(s) supplied: yes Verified refill(s) needed (previous prescription showing no refills in chart): Yes Have you received any controlled medications from any other provider? N/A Overdue for visit: No If yes - patient scheduled? Yes Most recent labs completed in chart? N/A [id number] Miscellaneous Notes* Telephone Encounter - Kimberly Bob MA - 07/30/2024 3:19 PM EST Recent Visits Date Type Provider Dept 05/02/24 Office Visit Nena Pardo DO [facility] 03/29/24 Office Visit Nena Pardo DO [facility] Showing recent visits within past 365 days and meeting all other requirements Future Appointments Date Type Provider Dept 08/08/24 Appointment eNna Pardo DO [facility] Showing future appointments within next 90 days and meeting all other requirements Requested Prescriptions Pending Prescriptions Disp Refills OXcarbazepine (Trileptal) 150 MG tablet [Pharmacy Med Name: OXCARBAZEPINE 150 MG TABLET] 180 tablet1 Sig: TAKE 1 TABLET BY MOUTH 2 TIMES DAILY Provider: Nena Pardo DO Verified pharmacy: yes Verified day(s) supplied: yes Verified refill(s) needed (previous prescription showing no refills in chart): Yes Have you received any controlled medications from any other provider? N/A Overdue for visit: No If yes - patient scheduled? Yes Most recent labs completed in chart? N/A documented in this encounterSDayton Children's [id number] History of Present illness Narrative* Nena Pardo DO - 05/02/2024 3:40 PM EDT Images from the original note were not included. [facility] - [address] [facility] [address] Visit type: Established Patient Reason for Visit: Follow-up and Flu Vaccine (Patient has declined to receive influenza vaccine in the office. ) Assessment and Plan Diagnoses and all orders for this visit: Type 2 diabetes mellitus with hyperglycemia, without long-term current use of insulin (HCC) - AMB POC GLUCOSE TEST Chronic, BS not well controlled He is not checking them - will need glucometer, supplies sent today Continue metformin FU in 3 months Essential hypertension Chronic, well controlled with diet Mixed hyperlipidemia Chronic, well controlled on current medications. Continue atorvastatin Other orders - meloxicam (Mobic) 15 MG tablet; Take 1 tablet (15 mg) by mouth as needed for mild pain (1-3). FU in 3 mo No follow-ups on file. Subjective HPI He's not checking BS States this was bc he wasn't on the metformin Taking care of his mom and brother Cutting back on his potato chips BP is well controlled Review of Systems Constitutional: Negative for appetite change, chills, fatigue and fever. Respiratory: Negative for cough, shortness of breath and wheezing. Cardiovascular: Negative for chest pain, palpitations and leg swelling. Genitourinary: Negative. No Known Allergies Outpatient Medications Prior to Visit Medication Sig Dispense Refill atorvastatin (Lipitor) 20 MG tablet Take 1 tablet (20 mg) by mouth daily. 30 tablet 5 gabapentin (Neurontin) 300 MG capsule Take 1 capsule (300 mg) by mouth 3 times daily. 90 capsule 5 metFORMIN XR (Glucophage-XR) 750 MG 24 hr tablet Take 1 tablet (750 mg) by mouth with evening meal.90 tablet 3 OXcarbazepine (Trileptal) 150 MG tablet Take 1 tablet (150 mg) by mouth 2 times daily. 60 tablet 3 phenytoin ER (Dilantin) 100 MG capsule Take 2 capsules (200 mg) by mouth every morning AND 2 capsules (200 mg) Daily with lunch AND 1 capsule (100 mg) every evening. 150 capsule 3 meloxicam (Mobic) 15 MG tablet Take 15 mg by mouth as needed. semaglutide (Ozempic, 0.25 or 0.5 MG/DOSE,) 2 MG/1.5ML solution pen-injector Inject 0.25 mg under the skin 1 (one) time per week. (Patient not taking: Reported on 05/02/2024) 1 each 12 No facility-administered medications prior to visit. Past Medical History: Diagnosis Date Arthritis Diabetes mellitus (HCC) Hypertension Intermittent explosive disorder says he has anger issues Seizure (HCC) 1970 Social History Socioeconomic History Marital status: Tobacco Use Smoking status: Former Current packs/day: 0.00 Types: Cigarettes Quit date: 06/23/1980 Years since quittin.8 Smokeless tobacco: Never Vaping Use Vaping status: Never Used Substance and Sexual Activity Alcohol use: Not Currently Drug use: Not Currently Sexual activity: Yes Partners: Female Social Determinants of Health Financial Resource Strain: Medium Risk (04/03/2024) Overall Financial Resource Strain (CARDIA) Difficulty of Paying Living Expenses: Somewhat hard Food Insecurity: Food Insecurity Present (04/03/2024) Hunger Vital Sign Worried About Running Out of Food in the Last Year: Sometimes true Ran Out of Food in the Last Year: Sometimes true Transportation Needs: Unmet Transportation Needs (04/03/2024) PRAPARE - Transportation Lack of Transportation (Medical): Yes Lack of Transportation (Non-Medical): No Physical Activity: Insufficiently Active (04/03/2024) Exercise Vital Sign Days of Exercise per Week: 1 day Minutes of Exercise per Session: 30 min Stress: Stress Concern Present (04/03/2024) [employer] - Occupational Stress Questionnaire Feeling of Stress : To some extent Social Connections: Moderately Isolated (04/03/2024) Social Connection and Isolation Panel [NHANES] Frequency of Communication with Friends and Family: Once a week Frequency of Social Gatherings with Friends and Family: Never Attends Uatsdin Services: More than 4 times per year Active Member of Clubs or Organizations: No Attends Club or Organization Meetings: Never Marital Status: Intimate Partner Violence: Not At Risk (04/03/2024) Humiliation, Afraid, Rape, and Kick questionnaire Fear of Current or Ex-Partner: No Emotionally Abused: No Physically Abused: No Sexually Abused: No Housing Stability: High Risk (04/03/2024) Housing Stability Vital Sign Unable to Pay for Housing in the Last Year: Yes Number of Times Moved in the Last Year: 1 Homeless in the Last Year: No Past Surgical History: Procedure Laterality Date HAND SURGERY Right WISDOM TOOTH EXTRACTION Past Surgical History: Procedure Laterality Date HAND SURGERY Right WISDOM TOOTH EXTRACTION Family History Problem Relation Name Age of Onset High Blood Pressure Mother Heart attack Mother Objective BP 136/78 Pulse 60 Ht 5' 6 (1.676 m) Wt 285 lb (129 kg) SpO2 99% BMI 46.00 kg/m Physical Exam Vitals and nursing note reviewed. Constitutional: General: He is not in acute distress. Appearance: Normal appearance. He is not ill-appearing. HENT: Head: Normocephalic and atraumatic. Eyes: Conjunctiva/sclera: Conjunctivae normal. Skin: General: Skin is warm and dry. Neurological: General: No focal deficit present. Mental Status: He is alert and oriented to person, place, and time. Psychiatric: Mood and Affect: Mood normal. Behavior: Behavior normal. Thought Content: Thought content normal. Judgment: Judgment normal. Data Reviewed POCT: Labs: Imaging/Testing: Chart Clean Up: Medications Discontinued During This Encounter Medication Reason semaglutide (Ozempic, 0.25 or 0.5 MG/DOSE,) 2 MG/1.5ML solution pen-injector Cost of medication meloxicam (Mobic) 15 MG tablet Reorder Nena Pardo DO 05/02/2024 3:36 PM documented in this encounterSDayton Children's [id number] Telephone encounter Note* Telephone Encounter - Chiquita Paulino RN - 04/12/2024 1:37 PM EDT (2nd attempt) Called today to schedule screening colonoscopy (surveillance program) Left message to call the screening program at [phone] [facility] [id number] Miscellaneous Notes* Telephone Encounter - Chiquita Paulino RN - 04/12/2024 1:37 PM EDT (2nd attempt) Called today to schedule screening colonoscopy (surveillance program) Left message to call the screening program at [phone] * Telephone Encounter - Chiquita Paulino RN - 04/09/2024 1:37 PM EDT Screening Colonoscopy (Screening/surveillance program) Called pt today to schedule colonoscopy Left message to call the screening program at [phone] documented in this encounterSDayton Children's [id number] Telephone encounter Note* Telephone Encounter - Chiquita Paulino RN - 04/09/2024 1:37 PM EDT Screening Colonoscopy (Screening/surveillance program) Called pt today to schedule colonoscopy Left message to call the screening program at [phone] [facility] [facility] [id number] Telephone encounter Note* Telephone Encounter - Ciara Glover MA - 04/04/2024 9:54 AM EDT [facility]uled [facility] [id number] Miscellaneous Notes* Telephone Encounter - Ciara Glover MA - 04/04/2024 9:54 AM EDT Scheduled * Telephone Encounter - Ciara Glover MA - 04/03/2024 1:49 PM EDT IRENA Brandon and tried to schedule his 4 week follow up. He was not at home when I called and said he would call back tomorrow. I told him to have call center to put him though to Ciara at office. * Telephone Encounter - Nena Pardo DO - 04/03/2024 11:41 AM EDT Rx sent. Recommend FU in 4 weeks * Telephone Encounter - Ciara Glover MA - 04/03/2024 11:20 AM EDT Patient in agreement to start Ozempic. Pt is aware this will need a prior auth. Patient is agreement to start Atorvastatin * Telephone Encounter - Nena Pardo DO - 04/03/2024 11:08 AM EDT Labs with A1c of 9.2 - this is pretty high. Goal is less than 7. I'd recommend adding ozempic to his regimen. This is a once a week injection that would lower his blood sugars and help with weight loss. Side effects can include nausea, diarrhea and constipation. Also, triglycerides are high. I don't see that he is on a statin. I would recommend starting atorvastatin to lower his cholesterol and reduce his cardiovascular risk. There is also a high level of microalbumin in his urine, which can be a marker of early kidney disease. This can be managed by better blood sugar control. documented in this [facility]09-12-2024 Miscellaneous Notes* Telephone Encounter - Ciara Glover MA - 04/04/2024 9:54 AM EDT Scheduled * Telephone Encounter - Ciara Glover MA - 04/03/2024 1:49 PM EDT IRENA Brandon and tried to schedule his 4 week follow up. He was not at home when I called and said he would call back tomorrow. I told him to have call center to put him though to Ciara at office. * Telephone Encounter - Nena Pardo DO - 04/03/2024 11:41 AM EDT Rx sent. Recommend FU in 4 weeks * Telephone Encounter - Ciara Glover MA - 04/03/2024 11:20 AM EDT Patient in agreement to start Ozempic. Pt is aware this will need a prior auth. Patient is agreement to start Atorvastatin * Telephone Encounter - Nena Pardo DO - 04/03/2024 11:08 AM EDT Labs with A1c of 9.2 - this is pretty high. Goal is less than 7. I'd recommend adding ozempic to his regimen. This is a once a week injection that would lower his blood sugars and help with weight loss. Side effects can include nausea, diarrhea and constipation. Also, triglycerides are high. I don't see that he is on a statin. I would recommend starting atorvastatin to lower his cholesterol and reduce his cardiovascular risk. There is also a high level of microalbumin in his urine, which can be a marker of early kidney disease. This can be managed by better blood sugar control. documented in this [facility]SDay[facility] [id number] Telephone encounter Note* Telephone Encounter - Ciara Glover MA - 04/03/2024 1:49 PM EDT IRENA Brandon and tried to schedule his 4 week follow up. He was not at home when I called and said he would call back tomorrow. I told him to have call center to put him though to Ciara at office. [facility] [id number] Telephone encounter Note* Telephone Encounter - Nena Pardo DO - 04/03/2024 11:41 AM EDT Rx sent. Recommend FU in [address] [address] [facility] [id number] Telephone encounter Note* Telephone Encounter - Ciara Glover MA - 04/03/2024 11:20 AM EDT Patient in agreement to start Ozempic. Pt is aware this will need a prior auth. Patient is agreement to start Atorvastatin [facility] [id number] Telephone encounter Note* Telephone Encounter - Nena Pardo DO - 04/03/2024 11:08 AM EDT Labs with A1c of 9.2 - this is pretty high. Goal is less than 7. I'd recommend adding ozempic to his regimen. This is a once a week injection that would lower his blood sugars and help with weight loss. Side effects can include nausea, diarrhea and constipation. Also, triglycerides are high. I don't see that he is on a statin. I would recommend starting atorvastatin to lower his cholesterol and reduce his cardiovascular risk. There is also a high level of microalbumin in his urine, which can be a marker of early kidney disease. This can be managed by better blood sugar control. T [facility] [id number] Note* Addendum Note - Nena Pardo DO - 03/29/2024 9:56 AM EDTAddended by: NENA PARDO on: 03/29/2024 09:56 AM Modules accepted: Orders [place] [id number] Note* Addendum Note - Nena Pardo DO - 03/29/2024 9:56 AM EDTAddended by: NENA PARDO on: 03/29/2024 09:56 AM Modules accepted: Orders T [place] [id number] Note* Addendum Note - Nena Pardo DO - 03/29/2024 9:56 AM EDTAddended by: NENA PARDO on: 03/29/2024 09:56 AM Modules accepted: Orders [facility] [id number] Note* Addendum Note - Nena Pardo DO - 03/29/2024 9:56 AM EDTAddended by: NENA PARDO on: 03/29/2024 09:56 AM Modules accepted: Orders [facility] [id number] NoteAddended by: NENA PARDO on: 03/29/2024 09:56 AM Modules accepted: [facility]09-06-2024 Telephone encounter Note* Telephone Encounter - Nena Pardo DO - 03/29/2024 9:56 AM EDT Corrected rx sent [facility] [id number] Miscellaneous Notes* Addendum Note - Nena Pardo DO - 03/29/2024 9:56 AM EDTAddended by: NENA PARDO on: 03/29/2024 09:56 AM Modules accepted: Orders * Telephone Encounter - Nena Pardo DO - 03/29/2024 9:56 AM EDT Corrected rx sent * Telephone Encounter - Ashely Thakur - 03/29/2024 9:50 AM EDT I apologize, I did not scroll down far enough to see Ciara's message and received the answer for Dr. Pardo. The patient stated he was taking 200 MG in the AM, 200 MG in the afternoon, and 100 MG at night. Please advise and call the patient back if any further information is needed. * Telephone Encounter - Ciara Glover MA - 03/29/2024 9:39 AM EDT LVM Please put patient through to Ciara at office . Medication question * Telephone Encounter - Nena Pardo DO - 03/29/2024 9:20 AM EDT What dosages was he taking to get to 500 mg? The rx I sent was for 100 mg TID * Telephone Encounter - Mara Prince - 03/29/2024 8:43 AM EDT Name of caller: Brett Contact phone number: [phone] Relationship to Patient: [facility] Pharmacy Provider: Dr. Pardo Practice: [facility] Chief Complaint/Reason for Call: dosage -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
== END | disposition home or self-care (01) ==
LOC: OLS.SANC 05:00
PROVIDERS: PCP Family Medicine; Visit Provider Internal Medicine
DX: Z79.899 Other long term (current) drug therapy (principal)
CPT/HCPCS: 36415

== ENCOUNTER → 2025-03-18 | Outpatient (REF) | payer MEDICAID, SELFPAY ==
--- OUTSIDE RECORDS SUMMARY | 2025-03-18 04:08 | XMS RPT_ITS | CCD ---
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 Fall was apparently witnessed at alf facility Nursing Notes were reviewed. REVIEW OF SYSTEMS 14 systems reviewed and otherwise acutely negative except as in the [place]. 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 Physician EKG interpretation can be found in [facility] RADIOLOGY (Per Emergency Physician): Interpretation per the [...] Result 1. (more content not included)... Normal [facility] No Panel Informationon 01-17 1. No [...] Electronically Signed Date/Time: 01/17/2025 4:46 PM EDT [facility] 1. No acute findings. Report Dictated on Electronically Signed By: Tobi Boudreaux MD Electronically Signed Date/Time: 01/17/2025 4:11 PM EDT [facility] No Panel InformationOrdered By: Tobi Boudreaux on 01-17-2025 [facility] Work Phone: XR Hand - right 3 [...] limits. There is no radiopaque foreign body. [facility] Tobi Boudreaux MD - 01/17/2025 Patient Name: [...] Electronically Signed Date/Time: 01/17/2025 4:11 PM EDT [facility] Radiology Study observation (narrative) [facility] alth XR Wrist - right 3 Viewson 0 [...] limits. There is no radiopaque foreign body. [facility] Tobi Boudreaux MD - 01/17/2025 [...] Electronically Signed Date/Time: 01/17/2025 4:11 PM EDT [facility] Radiology Study observation (narrative) Emily Gonzalez 12-02-2024 CNPN Telephone (NSEVMN) EVANGELISTA BORREGO JR ([id number]) 1965 Date Time Provider Department 12/02/24 [facility] your visit today, we recorded the [...] JR, 1965). Yes Number to return call [phone] Reason for Call: Patient Question/Update: Nurse from where patient is staying calling with a few questions about Lovenox medication. Please return call at [phone] Thank you calling [facility] [place]. You will receive a return call within 48 hours ( or 2 business days if close to the weekend). If you feel that this is an urgent issue and needs immediate attention, it is recommended that you contact your primary care provider office or proceed to your nearest Urgent Care Center of Emergency Room ED for evaluation/treatment . Seble Myers, EFRAIN 12/02/2024 2:53 PM Signed Call to [facility] [place], maya[employer], wants to know if pt is supposed to still be on Lovenox. 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 Please call back [phone] Monday. Seble Myers RN December 02, 2024 2:50 PM Seble Myers, EFRAIN 12/03/2024 8:36 AM Signed Per Dodie Irvin CNP: Lovenox is not something he needs for stroke. If it is prophylactic, that can be determined by the house doc. Call to [facility] [employer] [place], Message as above, verbalized understanding, no further questions. 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 PCP is MD Adriana Atwood MD ([facility]) [address] [place] [id number] Date: November 25, 2024 History of Present Illness Evangelista Borrego JR is a 59 year old male with PMH of T2DM, HTN, HLD, CVA, seizures and CHRYSTAL who presents today for evaluation of T2DM Patient lives in [facility]. 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 She has no clinical information about the [...] ARTHROSCOPIC PROCEDURE ANKLE AND FOOT [facility] AND/TRANSPOS MEDIAN NRV CARPAL TUNNE [...] as instructed. (more content not included)... Normal [facility] CNPNon 11-25-2024 TUCKERN Telephone (CHUNIN) EVANGELISTA BORREGO JR ([id number]) 1965 M Date Time Provider Department 11/25/24 BLAIRE DENNEY During your visit today, we recorded the following information about you: Blaire Denney MD 11/25/2024 2:41 PM Signed Please let the facility know that I reviewed the blood sugars. To continue current insulin regimen MD Arian Omalley Wendy, LPN 11/25/2024 2:58 PM Signed Called [facility] @ [phone] Spoke to staff. Relayed providers message below [...] Status:Closed by BLAIRE DENNEY on 11/26/24 Normal [facility] Misc.on 11-01-2024 [facility]. COMMENT Normal . [facility] Comment on above: Order Comment: 108.2 SERUM ROOM TEMP 189139 OXCARBAZEPINE SERUM OR PLASMA Result Comment: Test Ordered: [id number] Oxcarbazepine (Trileptal),S Oxcarbazepine 2 [L ] ug/mL Reference Range: 10-35 This test was developed and its performance characteristics determined by [employer]. It has not been cleared or approved by the Food and Drug Administration. Detection Limit = 1 Performed at: [address] [id number] Pumper Gager: Ashley Connell MD, Phone: [phone] Performed at: - [facility] [id number] Pumper Gager: Norman Butcher PhD, Phone: [phone] Performed By: #### L 1000508, L553.4058, L3410.9998 #### [facility] [address] [place], [place], [id number] CNOVon 10-31-2024 CNOV Office Visit (NECVS8) EVANGELISTA BORREGO JR ([id number]) 1965 M Date Time Provider Department 10/31/24 1:35 PM DODIE IRVIN NECVS8 During your visit today, we recorded the following information about you: Pulse Blood pressure 55/minute 105/55 Dodie Irvin APRN.POSTAL TRANSPORTATION CLERK 10/31/2024 2:18 PM Signed [facility] Established Visit Consultation is requested by: Joe Zamora [address] [facility] [address] PCP: Adriana Sahw MD ([facility]) [address] [place] [address] CEREBROVASCULAR HISTORY Evangelista Borrego JR is a [...] and keep patient flat. Patient transferred to [facility] SDU for further observation and [...] ARTHROSCOPIC PROCEDURE ANKLE AND FOOT [facility]OSCOPY [facility] AND/TRANSPOS MEDIAN NRV CARPAL TUNNE [...] anicteric. Oropharyn (more content not included)... Normal [facility].on 10-31-2024 [facility]. COMMENT Normal . [facility] Comment on above: Order Comment: 108.2 SERUM ROOM TEMP 230263 ZONISAMIDE SERUM OR PLASM Result Comment: Test Ordered: [id number] Zonisamide(Zonegran), Serum Zonisamide 7.0 [L ] ug/mL Reference Range: 10.0-40.0 Detection Limit = 2.0 Performed at: [facility] [address] [id number] Pumper Gager: Ashley Connell MD, Phone: [phone] Performed at: [facility] [address] [id number] Pumper Gager: Norman Butcher PhD, Phone: [phone] Performed By: #### L 3410.9998 #### [facility] [address] [place], [address] 36on 10-28-2024 36 S: Nurse spoke with [facility] nurse regarding fall B: Onset of symptoms/concern tonight A: Nay-Nurse from [facility] for a witnessed fall out of his [...] Protocols used: Information Only Call - No [facility] Anion gap in Serum or Plasma Ordered By: Frank Liriano on 10-28-2024 Anion gap [Moles/Vol] 11 mmol/L 5-15 [facility] BUN/creatinine ratioOrdered By: Frank Liriano on 10-28-2024 Urea nitrogen/Creatinine [Mass ratio] 14.6 mg/mg 10-20 [facility] Bilirubin, totalOrdered By: Frank Liriano on 10-28-2024 Bilirubin [Mass/Vol] 0.35 mg/dL 0.00-1.30 [facility] CBC-Complete Blood Cnt No Di ffon 10-28-2024 Erythrocyte distribution width (RBC) [Ratio] 13.6 % Normal 11.6-14.6 [facility] Comment on above: Order Comment: 108.2 Performed By: #### L 100.0500, L500.4050, L3410.9998 #### [facility] [address] [place], [address] Hematocrit (Bld) [Volume fraction] 39.3 % Low 40-54 [facility] Comment on above: Order Comment: 108.2 Performed By: #### L 100.0500, L500.4050, L3410.9998 #### [facility] [address] [place], [address] Hemoglobin (Bld) [Mass/Vol] 13.8 g/dL Normal 13.0-16.5 [facility] Comment on above: Order Comment: 108.2 Performed By: #### L 100.0500, L500.4050, L3410.9998 #### [facility] [address] [place], [address] MCH (RBC) [Entitic mass] 30.8 pg Normal 27.0-32.0 [facility] Comment on above: Order Comment: 108.2 Performed By: #### L 100.0500, L500.4050, L3410.9998 #### [facility] [address] [place], [address] MCHC (RBC) [Mass/Vol] 35.1 g/dL Normal 32-36 [facility] Comment on above: Order Comment: 108.2 Performed By: #### L 100.0500, L500.4050, L3410.9998 #### [facility] [address] [place], [address] MCV (RBC) [Entitic vol] 87.7 fL Normal 80-94 [facility] Comment on above: Order Comment: 108.2 Performed By: #### L 100.0500, L500.4050, L3410.9998 #### [facility] [address] [place], [address] Platelet mean volume (Bld) [Entitic vol] 10.2 fL Normal 6.2-12.0 [facility] Comment on above: Order Comment: 108.2 Performed By: #### L 100.0500, L500.4050, L3410.9998 #### [facility] [address] [place], [address] Platelets (Bld) [#/Vol] 223 10*3/uL Normal 150-450 [facility] Comment on above: Order Comment: 108.2 Performed By: #### L 100.0500, L500.4050, L3410.9998 #### [facility] [address] [place], [address] RBC (Bld) [#/Vol] 4.48 10*6/uL Low 4.6-6.2 [facility] Comment on above: Order Comment: 108.2 Performed By: #### L 100.0500, L500.4050, L3410.9998 #### [facility] [address] [place], [address] RDW SD 43.3 fl Normal 35.1-43.9 [facility] Comment on above: Order Comment: 108.2 Performed By: #### L 100.0500, L500.4050, L3410.9998 #### [facility] [address] [place], [address] WBC (Bld) [#/Vol] 5.8 10*3/uL Normal 4.4-11.0 [facility] Comment on above: Order Comment: 108.2 Performed By: #### L 100.0500, L500.4050, L3410.9998 #### [facility] [address] [place], [address] Carbon dioxide, total [Moles /volume] in Central venous bloodOrdered By: Frank Liriano on 10-28-2024 CO2 [Moles/Vol] 22.9 mmol/L 21.0-32.0 [facility] Chloride assayOrdered By: Gema Liriano on 10-28-2024 Chloride [Moles/Vol] 109 mmol/L High 98-108 [facility] Comprehensive Metabolic Prof ilon 10-28-2024 Albumin [Mass/Vol] 3.6 g/dL Normal 3.5-5.0 [facility] Comment on above: Order Comment: 108.2 Performed By: #### L 100.0500, L500.4050, L3410.9998 #### [facility] [address] [place], [address] Albumin/Globulin [Mass ratio] 1.3 {ratio} Normal 0.9-2.4 [facility] Comment on above: Order Comment: 108.2 Performed By: #### L 100.0500, L500.4050, L3410.9998 #### [facility] [address] [place], [address] ALK PHOS 86 U/L Normal 40-129 [facility] Comment on above: Order Comment: 108.2 Performed By: #### L 100.0500, L500.4050, L3410.9998 #### [facility] [address] [place], [address] ALT [Catalytic activity/Vol] 28 U/L Normal <=46 [facility] Comment on above: Order Comment: 108.2 Performed By: #### L 100.0500, L500.4050, L3410.9998 #### [facility] [address] [place], [address] AST [Catalytic activity/Vol] 25 U/L Normal <=37 [facility] Comment on above: Order Comment: 108.2 Performed By: #### L 100.0500, L500.4050, L3410.9998 #### [facility] [address] [place], [address] Bilirubin [Mass/Vol] 0.35 mg/dL Normal 0.00-1.30 [facility] Comment on above: Order Comment: 108.2 Performed By: #### L 100.0500, L500.4050, L3410.9998 #### [facility] [address] [place], [address] BUN/CRE 14.6 RATIO Normal 10-20 [facility] Comment on above: Order Comment: 108.2 Performed By: #### L 100.0500, L500.4050, L3410.9998 #### [facility] [address] [place], [address] Calcium [Mass/Vol] 8.8 mg/dL Normal 7.6-11.0 [facility] Comment on above: Order Comment: 108.2 Performed By: #### L 100.0500, L500.4050, L3410.9998 #### [facility] [address] [place], [address] Chloride [Moles/Vol] 109 mmol/L High 98-108 [facility] Comment on above: Order Comment: 108.2 Performed By: #### L 100.0500, L500.4050, L3410.9998 #### [facility] [address] [place], [address] CO2 [Moles/Vol] 22.9 mmol/L Normal 21.0-32.0 [facility] Comment on above: Order Comment: 108.2 Performed By: #### L 100.0500, L500.4050, L3410.9998 #### [facility] [address] [place], [address] Creatinine [Mass/Vol] 0.96 mg/dL Normal 0.70-1.20 [facility] Comment on above: Order Comment: 108.2 Performed By: #### L 100.0500, L500.4050, L3410.9998 #### [facility] [address] [place], [address] GAP 11 Normal 5-15 [facility] Comment on above: Order Comment: 108.2 Performed By: #### L 100.0500, L500.4050, L3410.9998 #### [facility] [address] [place], [address] GFR/1.73 sq M.predicted among non-blacks MDRD (S/P/Bld) [Vol rate/Area] 91 mL/min/{1.73_m2} Normal >60 [facility] Comment on above: Order Comment: 108.2 Result Comment: mL/m in/1.73m2 CKD-EPI Creatinine Equation (2020) Performed By: #### L 100.0500, L500.4050, L3410.9998 #### [facility] [address] [place], [address] Globulin (S) [Mass/Vol] 2.8 g/dL Normal 2.2-4.2 [facility] Comment on above: Order Comment: 108.2 Performed By: #### L 100.0500, L500.4050, L3410.9998 #### [facility] [address] [place], [address] Glucose [Mass/Vol] 102 mg/dL High 70-99 [facility] Comment on above: Order Comment: 108.2 Performed By: #### L 100.0500, L500.4050, L3410.9998 #### [facility] [address] [place], [address] Potassium [Moles/Vol] 3.9 mmol/L Normal 3.3-5.1 [facility] Comment on above: Order Comment: 108.2 Result Comment: Hemo lysis present, Results??could be affected. ?? Performed By: #### L 100.0500, L500.4050, L3410.9998 #### [facility] [address] [place], [address] Sodium [Moles/Vol] 142 mmol/L Normal 133-145 [facility] Comment on above: Order Comment: 108.2 Performed By: #### L 100.0500, L500.4050, L3410.9998 #### [facility] [address] [place], [address] T PROT 6.5 g/dL Normal 5.9-8.4 [facility] Comment on above: Order Comment: 108.2 Performed By: #### L 100.0500, L500.4050, L3410.9998 #### [facility] [address] [place], [place], [address] Urea nitrogen [Mass/Vol] 14 mg/dL Normal 4-19 [facility] Comment on above: Order Comment: 108.2 Performed By: #### L 100.0500, L500.4050, L3410.9998 #### [facility] [address] [place], [place], [address] Erythrocyte distribution wid th ratioOrdered By: Frank Liriano on 10-28-2024 Erythrocyte distribution width (RBC) [Ratio] 13.6 % 11.6-14.6 [facility] Erythrocyte distribution wid th standard deviationOrdered By: Frank Liriano on 10-28-2024 Erythrocyte distribution width (RBC) [Ratio] 43.3 fl 35.1-43.9 [facility] Glomerular filtration rate ( GFR) estimation/1.73 sq m using serum, plasma, or whole bOrdered By: Frank Liriano on 10-28-2024 GFR/1.73 sq M.predicted among non-blacks MDRD (S/P/Bld) [Vol rate/Area] 91 mL/min/{1.73_m2} >60 [facility] Comment on above: mL/min/1.73m2 CKD-EP I Creatinine Equation (2020) Hematocrit Auto (Bld) [Volum e fraction]Ordered By: Frank Liriano on 10-28-2024 Hematocrit (Bld) [Volume fraction] 39.3 % Low 40-54 [facility] Hemoglobin measurementOrdere d By: Frank Liriano on 10-28-2024 Hemoglobin (Bld) [Mass/Vol] 13.8 g/dL 13.0-16.5 [facility] - Chemistry and C hemistry - challengeOrdered By: Frank Liriano on 10-28-2024 AST [Catalytic activity/Vol] 25 U/L <38 [facility] MCV (mean corpuscular volume ) determinationOrdered By: Frank Liriano on 10-28-2024 MCV (RBC) [Entitic vol] 87.7 fL 80-94 [facility] Mean corpuscular hemoglobin (MCH) determinationOrdered By: Frank Liriano on 10-28-2024 MCH (RBC) [Entitic mass] 30.8 pg 27.0-32.0 [facility] Mean corpuscular hemoglobin concentration (MCHC) determinationOrdered By: Frank Liriano on 10-28-2024 MCHC (RBC) [Mass/Vol] 35.1 g/dL 32-36 [facility] Mean platelet volume determi nationOrdered By: Frank Liriano on 10-28-2024 Platelet mean volume (Bld) [Entitic vol] 10.2 fL 6.2-12.0 [facility] Platelet countOrdered By: Gema Liriano on 10-28-2024 Platelets (Bld) [#/Vol] 223 10*3/uL 150-450 [facility] Potassium measurement (mass/ volume)Ordered By: Frank Liriano on 10-28-2024 Potassium (Unsp spec) [Mass/Vol] 3.9 mmol/L 3.3-5.1 [facility] Comment on above: Hemolysis present, R esults could be affected. RBC Auto (Bld) [#/Vol]Ordere d By: Frank Liriano on 10-28-2024 RBC (Bld) [#/Vol] 4.48 10*6/uL Low 4.6-6.2 [facility] Serum creatinine measurement (mass/volume)Ordered By: Frank Liriano on 10-28-2024 Creatinine [Mass/Vol] 0.96 mg/dL 0.70-1.20 [facility] Serum globulin measurementOr dered By: Frank Liriano on 10-28-2024 Globulin (S) [Mass/Vol] 2.8 g/dL 2.2-4.2 [facility] Serum glucose measurement (m ass/volume)Ordered By: Frank Liriano on 10-28-2024 Glucose [Mass/Vol] 102 mg/dL High 70-99 [facility] Serum or plasma alanine diallo otransferase (ALT) measurementOrdered By: Frank Liriano on 10-28-2024 ALT [Catalytic activity/Vol] 28 U/L <47 [facility] Serum or plasma albumin isaiah urement (mass/volume)Ordered By: Frank Liriano on 10-28-2024 Albumin [Mass/Vol] 3.6 g/dL 3.5-5.0 [facility] Serum or plasma albumin/glob ulin mass ratioOrdered By: Frank Liriano on 10-28-2024 Albumin/Globulin [Mass ratio] 1.3 {ratio} 0.9-2.4 [facility] Serum or plasma alkaline tyrell sphatase measurementOrdered By: Frank Liriano on 10-28-2024 ALP [Catalytic activity/Vol] 86 U/L 40-129 [facility] Serum or plasma calcium isaiah urement (mass/volume)Ordered By: Frank Liriano on 10-28-2024 Calcium [Mass/Vol] 8.8 mg/dL 7.6-11.0 [facility] Serum or plasma urea nitroge n measurement (mass/volume)Ordered By: Frank Liriano on 10-28-2024 Urea nitrogen [Mass/Vol] 14 mg/dL 4-19 [facility] Sodium levelOrdered By: Marti Liriano on 10-28-2024 Sodium [Moles/Vol] 142 mmol/L 133-145 [facility] Total proteinOrdered By: Virgilio Liriano on 10-28-2024 Protein [Mass/Vol] 6.5 g/dL 5.9-8.4 [facility] White blood cell (WBC) count Ordered By: Frank Liriano on 10-28-2024 WBC (Bld) [#/Vol] 5.8 10*3/uL 4.4-11.0 [facility] Basic metabolic 2000 panelon 10-21-2024 Anion gap [Moles/Vol] 14 mmol/L 8 - 15 mmol/L [facility] Calcium [Mass/Vol] 9 mg/dL 8.5 - 10. 2 mg/dL [facility] Chloride [Moles/Vol] 105 mmol/L 98 - 10 7 mmol/L [facility] CO2 [Moles/Vol] 22 mmol/L 22 - 30 mmol/L [facility] Creatinine [Mass/Vol] 0.98 mg/dL 0.73 - 1.22 mg/dL [facility] GFR/1.73 sq M.predicted among non-blacks MDRD (S/P/Bld) [Vol rate/Area] 89 mL/min/{1.73_m2} - PINF [facility] Comment on above: Estimated Glomerular Filtration [...] [Mass/Vol] 88 mg/dL 74 - 99 mg/dL [facility] Comment on above: The [place] Diabete s Association (ADA) provides guidance for [...] Standards of Medical Care in Diabetes 2016, [place] [employer] Association. Diabetes Care. 2016.39(Suppl 1). Interpretation and review of laboratory results Normal [facility] Potassium [Moles/Vol] 3.9 mmol/L 3.7 - 5.1 mmol/L [facility] Sodium [Moles/Vol] 141 mmol/L 136 - 144 mmol/L [facility] Urea nitrogen [Mass/Vol] 18 mg/dL 9 - 24 mg/dL [facility] Anion gap [Moles/Vol] 14 mmol/L Normal 8-15 [facility] Comment on above: Order Comment: Speci men Type: BLOOD SPECIMENOrdering Facility: [facility] Address: [address] [place] [address] Performed By: #### 2 4321-2 ####[facility] LABORATORYCLIA [id number] [place] [address] [place] Calcium [Mass/Vol] 9.0 mg/dL Normal 8.5-10.2 [facility] Comment on above: Order Comment: Speci men Type: BLOOD SPECIMENOrdering Facility: [facility] Address: [address] [place] [address] Performed By: #### 2 4321-2 ####[facility] LABORATORYCLIA [id number] [place] [address] [place] Chloride [Moles/Vol] 105 mmol/L Normal 98-107 [facility] Comment on above: Order Comment: Speci men Type: BLOOD SPECIMENOrdering Facility: [facility] Address: [address] [place] [address] Performed By: #### 2 4321-2 ####[facility] LABORATORYCLIA [id number] [place] [address] [place] CO2 [Moles/Vol] 22 mmol/L Normal 22-30 [facility] Comment on above: Order Comment: Speci men Type: BLOOD SPECIMENOrdering Facility: [facility] Address: [address] [place] [address] Performed By: #### 2 4321-2 ####ALANIS LABORATORYCLIA [id number] [place] [address] [place] Creatinine [Mass/Vol] 0.98 mg/dL Normal 0.73-1.22 [facility] Comment on above: Order Comment: Speci men Type: BLOOD SPECIMENOrdering Facility: [facility] Address: [address] [place] [address] Performed By: #### 2 4321-2 ####ALANIS LABORATORYCLIA [id number] [place] [address] [place] Creatinine and Glomerular filtration rate.predicted panel (S/P/Bld) 89 mL/min/1.73m??? Normal >=60 [facility] Comment on above: Order Comment: Jonas florez Type: BLOOD SPECIMENOrdering Facility: [facility] Address: [address] [place] [address] Result Comment: Bianca mated Glomerular Filtration Rate [...] Performed By: #### 2 4321-2 ####ALANIS LABORATORYCLIA [id number] [place] [id number] [place] Glucose [Mass/Vol] 88 mg/dL Normal 74-99 [facility] Comment on above: Order Comment: Jonas florez Type: BLOOD SPECIMENOrdering Facility: [facility] Address: [address] [place] [address] Result Comment: The [place] Diabetes Association (ADA) provides guidance for cutoff [...] Standards of Medical Care in Diabetes 2016, [place] [employer]. Diabetes Care. 2016.39(Suppl 1). Performed By: #### 2 4321-2 ####ALANIS LABORATORYCLIA [id number] [place] [id number] [place] Potassium [Moles/Vol] 3.9 mmol/L Normal 3.7-5.1 [facility] Comment on above: Order Comment: Jonas florez Type: BLOOD SPECIMENOrdering Facility: [facility] Address: [address] [place] [address] Performed By: #### 2 4321-2 ####ALANIS LABORATORYCLIA [id number] [address] [place] [facility] Sodium [Moles/Vol] 141 mmol/L Normal 136-144 [facility] Comment on above: Order Comment: Speci men Type: BLOOD SPECIMENOrdering Facility: [facility] Address: [address] [place] [address] Performed By: #### 2 4321-2 ####ALANIS LABORATORYCLIA [id number] [address] [place] [facility] Urea nitrogen [Mass/Vol] 18 mg/dL Normal 9-24 [facility] Comment on above: Order Comment: Speci men Type: BLOOD SPECIMENOrdering Facility: [facility] Address: [address] [place] [address] Performed By: #### 2 4321-2 ####ALANIS LABORATORYCLIA [id number] [address] [place] CBC W Auto Differential pane l (Bld)on 10-21-2024 Basophils (Bld) [#/Vol] 0.05 10*3/uL [facility] Basophils/100 WBC (Bld) 0.7 % [facility] Differential cell count method Nom (Bld) Auto [facility] Eosinophils (Bld) [#/Vol] 0.21 10*3/uL [facility] Eosinophils/100 WBC (Bld) 2.8 % [facility] Erythrocyte distribution width (RBC) [Ratio] 13.5 % 11.5 - 15.0 % [facility] Hematocrit (Bld) [Volume fraction] 39 % 39.0 - 51.0 % [facility] Hemoglobin (Bld) [Mass/Vol] 13.4 g/dL 13.0 - 17.0 g/dL [facility] Immature granulocytes (Bld) [#/Vol] [facility] Immature granulocytes/100 WBC (Bld) 0.3 % [facility] Lymphocytes (Bld) [#/Vol] 3.01 10*3/uL [facility] Lymphocytes/100 WBC (Bld) 40.1 % [facility] MCH (RBC) [Entitic mass] 30.1 pg 26.0 - 34.0 pg [facility] MCHC (RBC) [Mass/Vol] 34.4 g/dL 30.5 - 36.0 g/dL [facility] MCV (RBC) [Entitic vol] 87.6 fL 80.0 - 100.0 fL [facility] Monocytes (Bld) [#/Vol] 0.35 10*3/uL [facility] Monocytes/100 WBC (Bld) 4.7 % C [facility] Neutrophils (Bld) [#/Vol] 3.86 10*3/uL [facility] Neutrophils/100 WBC (Bld) 51.4 % [facility] Nucleated RBC (Bld) [#/Vol] NINF [facility] Nucleated RBC/100 WBC (Bld) [Ratio] 0 % /100 WBC [facility] Platelet mean volume (Bld) [Entitic vol] 10.2 fL 9.0 - 12.7 fL [facility] Platelets (Bld) [#/Vol] 244 10*3/uL [facility] RBC (Bld) [#/Vol] 4.45 10*6/uL 4.20 - 6.0 0 m/uL [facility] WBC (Bld) [#/Vol] 7.5 10*3/uL [facility] Basophils (Bld) [#/Vol] 0.05 10*3/uL Normal <0.11 [facility] Comment on above: Order Comment: Speci men Type: BLOOD SPECIMEN Ordering Facility: [facility] Address: [address] [place] [address] Performed By: #### 3 969-3 #### [facility] CLIA [id number] [address] [place] [address] [place] Basophils/100 WBC (Bld) 0.7 % Normal [facility] Comment on above: Order Comment: Speci men Type: BLOOD SPECIMEN Ordering Facility: [facility] Address: [address] [place] [address] Performed By: #### 3 969-3 #### [facility] CLIA [id number] [address] [id number] [address] [place] Differential cell count method Nom (Bld) Auto Normal [facility] Comment on above: Order Comment: Speci men Type: BLOOD SPECIMEN Ordering Facility: [facility] Address: [address] [place] [address] Performed By: #### 3 969-3 #### [facility] CLIA [id number] [address] [place] [address] [place] Eosinophils (Bld) [#/Vol] 0.21 10*3/uL Normal <0.46 [facility] Comment on above: Order Comment: Speci men Type: BLOOD SPECIMEN Ordering Facility: [facility] Address: [address] [place] [address] Performed By: #### 3 969-3 #### [facility] CLIA [id number] [address] [place] [address] [place] Eosinophils/100 WBC (Bld) 2.8 % Normal [facility] Comment on above: Order Comment: Speci men Type: BLOOD SPECIMEN Ordering Facility: [facility] Address: [address] [place] [address] Performed By: #### 3 969-3 #### [facility] CLIA [id number] [address] [place] [address] [place] Erythrocyte distribution width (RBC) [Ratio] 13.5 % Normal 11.5-15.0 [facility] Comment on above: Order Comment: Speci men Type: BLOOD SPECIMEN Ordering Facility: [facility] Address: [address] [place] [address] Performed By: #### 3 969-3 #### [facility] CLIA [id number] [address] [place] [address] [place] Hematocrit (Bld) [Volume fraction] 39.0 % Normal 39.0-51.0 [facility] Comment on above: Order Comment: Speci men Type: BLOOD SPECIMEN Ordering Facility: [facility] Address: [address] [place] [address] Performed By: #### 3 969-3 #### [facility] CLIA [id number] [address] [place] [address] [place] Hemoglobin (Bld) [Mass/Vol] 13.4 g/dL Normal 13.0-17.0 [facility] Comment on above: Order Comment: Speci men Type: BLOOD SPECIMEN Ordering Facility: [facility] Address: [address] [place] [address] Performed By: #### 3 969-3 #### [facility] CLIA [id number] [address] [place] [address] [place] Immature granulocytes (Bld) [#/Vol] 10*3/uL Normal <0.10 [facility] Comment on above: Order Comment: Speci men Type: BLOOD SPECIMEN Ordering Facility: [facility] Address: [address] [place] [address] Performed By: #### 3 969-3 #### [facility] CLIA [id number] [address] [place] [address] [place] Immature granulocytes/100 WBC (Bld) 0.3 % Normal [facility] Comment on above: Order Comment: Speci men Type: BLOOD SPECIMEN Ordering Facility: [facility] Address: [address] [place] [address] Performed By: #### 3 969-3 #### [facility] CLIA [id number] [address] [place] [address] [place] Lymphocytes (Bld) [#/Vol] 3.01 10*3/uL Normal 1.00-4.00 [facility] Comment on above: Order Comment: Speci men Type: BLOOD SPECIMEN Ordering Facility: [facility] Address: [address] [place] [address] Performed By: #### 3 969-3 #### [facility] CLIA [id number] [address] [place] [address] [place] Lymphocytes/100 WBC (Bld) 40.1 % Normal [facility] Comment on above: Order Comment: Speci men Type: BLOOD SPECIMEN Ordering Facility: [facility] Address: [address] [place] [address] Performed By: #### 3 969-3 #### [facility] CLIA [id number] [address] [place] [address] [place] MCH (RBC) [Entitic mass] 30.1 pg Normal 26.0-34.0 [facility] Comment on above: Order Comment: Speci men Type: BLOOD SPECIMEN Ordering Facility: [facility] Address: [address] [place] [address] Performed By: #### 3 969-3 #### [facility] CLIA [id number] [address] [place] [address] [place] MCHC (RBC) [Mass/Vol] 34.4 g/dL Normal 30.5-36.0 [facility] Comment on above: Order Comment: Speci men Type: BLOOD SPECIMEN Ordering Facility: [facility] Address: [address] [place] [address] Performed By: #### 3 969-3 #### [facility] CLIA [id number] [address] [place] [address] [place] MCV (RBC) [Entitic vol] 87.6 fL Normal 80.0-100.0 [facility] Comment on above: Order Comment: Speci men Type: BLOOD SPECIMEN Ordering Facility: [facility] Address: [address] [place] [address] Performed By: #### 3 969-3 #### [facility] CLIA [id number] [address] [place] [address] [place] Monocytes (Bld) [#/Vol] 0.35 10*3/uL Normal <0.87 [facility] Comment on above: Order Comment: Speci men Type: BLOOD SPECIMEN Ordering Facility: [facility] Address: [address] [place] [address] Performed By: #### 3 969-3 #### [facility] CLIA [id number] [address] [place] [address] [place] Monocytes/100 WBC (Bld) 4.7 % Normal [facility] Comment on above: Order Comment: Speci men Type: BLOOD SPECIMEN Ordering Facility: [facility] Address: [address] [place] [address] Performed By: #### 3 969-3 #### [facility] CLIA [id number] [address] [place] [address] [place] Neutrophils (Bld) [#/Vol] 3.86 10*3/uL Normal 1.45-7.50 [facility] Comment on above: Order Comment: Speci men Type: BLOOD SPECIMEN Ordering Facility: [facility] Address: [address] [place] [address] Performed By: #### 3 969-3 #### [facility] CLIA [id number] [address] [place] [address] [place] Neutrophils/100 WBC (Bld) 51.4 % Normal [facility] Comment on above: Order Comment: Speci men Type: BLOOD SPECIMEN Ordering Facility: [facility] Address: [address] [place] [address] Performed By: #### 3 969-3 #### [facility] CLIA [id number] [address] [place] [address] [place] Nucleated RBC (Bld) [#/Vol] 10*3/uL Normal <0.01 [facility] Comment on above: Order Comment: Speci men Type: BLOOD SPECIMEN Ordering Facility: [facility] Address: [address] [place] [address] Performed By: #### 3 969-3 #### [facility] CLIA [id number] [address] [id number] [address] [place] Nucleated RBC/100 WBC (Bld) [Ratio] 0.0 /100 WBC Normal [facility] Comment on above: Order Comment: Speci men Type: BLOOD SPECIMEN Ordering Facility: [facility] Address: [address] [place] [address] Performed By: #### 3 969-3 #### [facility] CLIA [id number] [address] [place] [address] [place] Platelet mean volume (Bld) [Entitic vol] 10.2 fL Normal 9.0-12.7 [facility] Comment on above: Order Comment: Speci men Type: BLOOD SPECIMEN Ordering Facility: [facility] Address: [address] [place] [address] Performed By: #### 3 969-3 #### [facility] CLIA [id number] [address] [place] [address] [place] Platelets (Bld) [#/Vol] 244 10*3/uL Normal 150-400 [facility] Comment on above: Order Comment: Speci men Type: BLOOD SPECIMEN Ordering Facility: [facility] Address: [address] [place] [address] Performed By: #### 3 969-3 #### [facility] CLIA [id number] [address] [place] [address] [place] RBC (Bld) [#/Vol] 4.45 10*6/uL Normal 4.20-6.00 [facility] Comment on above: Order Comment: Speci men Type: BLOOD SPECIMEN Ordering Facility: [facility] Address: [address] [place] [address] Performed By: #### 3 969-3 #### [facility] CLIA [id number] [address] [place] [address] [place] WBC (Bld) [#/Vol] 7.50 10*3/uL Normal 3.70-11.00 [facility] Comment on above: Order Comment: Speci men Type: BLOOD SPECIMEN Ordering Facility: [facility] Address: [address] [place] [address] Performed By: #### 3 969-3 #### [facility] CLIA [id number] [address] [place] [address] [place] [address] [place] Basic metabolic 2000 panelon 10-14-2024 Anion gap [Moles/Vol] 11 mmol/L 8 - 15 mmol/L [facility] Calcium [Mass/Vol] 9.1 mg/dL 8.5 - 10. 2 mg/dL [facility] Chloride [Moles/Vol] 107 mmol/L 98 - 10 7 mmol/L [facility] CO2 [Moles/Vol] 22 mmol/L 22 - 30 mmol/L [facility] Creatinine [Mass/Vol] 0.96 mg/dL 0.73 - 1.22 mg/dL [facility] GFR/1.73 sq M.predicted among non-blacks MDRD (S/P/Bld) [Vol rate/Area] 92 mL/min/{1.73_m2} - PINF [facility] Comment on above: Estimated Glomerular Filtration [...] 140 mg/dL High 74 - 99 mg/dL [facility] Comment on above: The [place] Diabete s Association (ADA) provides guidance for [...] Standards of Medical Care in Diabetes 2016, [place] [employer]. Diabetes Care. 2016.39(Suppl 1). Interpretation and review of laboratory results Abnormal [facility] Potassium [Moles/Vol] 4.4 mmol/L 3.7 - 5.1 mmol/L [facility] Sodium [Moles/Vol] 140 mmol/L 136 - 144 mmol/L [facility] Urea nitrogen [Mass/Vol] 18 mg/dL 9 - 24 mg/dL [facility] Anion gap [Moles/Vol] 11 mmol/L Normal 8-15 [facility] Comment on above: Order Comment: Speci men Type: BLOOD SPECIMENOrdering Facility: [facility] Address: [address] [place] [address] Performed By: #### 2 4321-2 ####ALANIS LABORATORYCLIA [id number] [place] [address] [place] Calcium [Mass/Vol] 9.1 mg/dL Normal 8.5-10.2 [facility] Comment on above: Order Comment: Speci men Type: BLOOD SPECIMENOrdering Facility: [facility] Address: [address] [place] [address] Performed By: #### 2 4321-2 ####ALANIS LABORATORYCLIA [id number] [place] [address] [place] Chloride [Moles/Vol] 107 mmol/L Normal 98-107 [facility] Comment on above: Order Comment: Speci men Type: BLOOD SPECIMENOrdering Facility: [facility] Address: [address] [place] [address] Performed By: #### 2 4321-2 ####ALANIS LABORATORYCLIA [id number] [place] [address] [place] CO2 [Moles/Vol] 22 mmol/L Normal 22-30 [facility] Comment on above: Order Comment: Speci men Type: BLOOD SPECIMENOrdering Facility: [facility] Address: [address] [place] [address] Performed By: #### 2 4321-2 ####ALANIS LABORATORYCLIA [id number] [place] [address] [place] Creatinine [Mass/Vol] 0.96 mg/dL Normal 0.73-1.22 [facility] Comment on above: Order Comment: Jonas florez Type: BLOOD SPECIMENOrdering Facility: [facility] Address: [address] [place] [address] Performed By: #### 2 4321-2 ####ALANIS LABORATORYCLIA [id number] [address] Creatinine and Glomerular filtration rate.predicted panel (S/P/Bld) 92 mL/min/1.73m??? Normal >=60 [facility] Comment on above: Order Comment: Jonas florez Type: BLOOD SPECIMENOrdering Facility: [facility] Address: [address] [place] [address] Result Comment: Bianca mated Glomerular Filtration Rate [...] Performed By: #### 2 4321-2 ####ALANIS LABORATORYCLIA [id number] [address] [place] Glucose [Mass/Vol] 140 mg/dL High 74-99 [facility] Comment on above: Order Comment: Jonas florez Type: BLOOD SPECIMENOrdering Facility: [facility] Address: [address] [place] [address] Result Comment: The [place] Diabetes Association (ADA) provides guidance for cutoff [...] Standards of Medical Care in Diabetes 2016, [place] Diabetes [employer]. Diabetes Care. 2016.39(Suppl 1). Performed By: #### 2 4321-2 ####ALANIS LABORATORYCLIA [id number] [address] [place] [facility] Potassium [Moles/Vol] 4.4 mmol/L Normal 3.7-5.1 [facility] Comment on above: Order Comment: Speci men Type: BLOOD SPECIMENOrdering Facility: [facility] Address: [address] [place] [address] Performed By: #### 2 4321-2 ####ALANIS LABORATORYCLIA [id number] [address] [place] Sodium [Moles/Vol] 140 mmol/L Normal 136-144 [facility] Comment on above: Order Comment: Speci men Type: BLOOD SPECIMENOrdering Facility: [facility] Address: [address] [place] [address] Performed By: #### 2 4321-2 ####ALANIS LABORATORYCLIA [id number] [address] [place] Urea nitrogen [Mass/Vol] 18 mg/dL Normal 9-24 [facility] Comment on above: Order Comment: Speci men Type: BLOOD SPECIMENOrdering Facility: [facility] Address: [address] [place] [address] Performed By: #### 2 4321-2 ####ALANIS LABORATORYCLIA [id number] [place] [address] [place] CBC W Auto Differential pane l (Bld)on 10-14-2024 Basophils (Bld) [#/Vol] 0.07 10*3/uL [facility] Basophils/100 WBC (Bld) 0.9 % C [facility] Differential cell count method Nom (Bld) Auto [facility] Eosinophils (Bld) [#/Vol] 0.28 10*3/uL [facility] Eosinophils/100 WBC (Bld) 3.5 % [facility] Erythrocyte distribution width (RBC) [Ratio] 12.8 % 11.5 - 15.0 % [facility] Hematocrit (Bld) [Volume fraction] 37 % Low 39.0 - 51.0 % [facility] Hemoglobin (Bld) [Mass/Vol] 13 g/dL 13.0 - 17.0 g/dL [facility] Immature granulocytes (Bld) [#/Vol] 0.06 10*3/uL [facility] Immature granulocytes/100 WBC (Bld) 0.7 % [facility] Interpretation and review of laboratory results Abnormal [facility] Lymphocytes (Bld) [#/Vol] 3.23 10*3/uL [facility] Lymphocytes/100 WBC (Bld) 40 % [facility] MCH (RBC) [Entitic mass] 30.3 pg 26.0 - 34.0 pg [facility] MCHC (RBC) [Mass/Vol] 35.1 g/dL 30.5 - 36.0 g/dL [facility] MCV (RBC) [Entitic vol] 86.2 fL 80.0 - 100.0 fL [facility] Monocytes (Bld) [#/Vol] 0.4 10*3/uL [facility] Monocytes/100 WBC (Bld) 5 % C [facility] Neutrophils (Bld) [#/Vol] 4.03 10*3/uL [facility] Neutrophils/100 WBC (Bld) 49.9 % [facility] Nucleated RBC (Bld) [#/Vol] [facility] Nucleated RBC/100 WBC (Bld) [Ratio] 0 % /100 WBC [facility] Platelet mean volume (Bld) [Entitic vol] 10.2 fL 9.0 - 12.7 fL [facility] Platelets (Bld) [#/Vol] 317 10*3/uL [facility] RBC (Bld) [#/Vol] 4.29 10*6/uL 4.20 - 6.0 0 m/uL [facility] WBC (Bld) [#/Vol] 8.07 10*3/uL [facility] Basophils (Bld) [#/Vol] 0.07 10*3/uL Normal <0.11 [facility] Comment on above: Order Comment: Speci men Type: BLOOD SPECIMENOrdering Facility: [facility] Address: [address] [place] [address] Performed By: #### 5 7021-8 ####ALAN[facility] LABORATORYCLIA [id number] [address] [place] Basophils/100 WBC (Bld) 0.9 % Normal [facility] Comment on above: Order Comment: Speci men Type: BLOOD SPECIMENOrdering Facility: [facility] Address: [address] [place] [address] Performed By: #### 5 7021-8 ####[facility]AN[facility] LABORATORYCLIA [id number] [place] [address] [place] Differential cell count method Nom (Bld) Auto Normal [facility] Comment on above: Order Comment: Speci men Type: BLOOD SPECIMENOrdering Facility: [facility] Address: [address] [place] [address] Performed By: #### 5 7021-8 ####[facility] LABORATORYCLIA [id number] [place] [address] [place] Eosinophils (Bld) [#/Vol] 0.28 10*3/uL Normal <0.46 [facility] Comment on above: Order Comment: Speci men Type: BLOOD SPECIMENOrdering Facility: [facility] Address: [address] [place] [address] Performed By: #### 5 7021-8 ####[facility] LABORATORYCLIA [id number] [address] OF [facility] Eosinophils/100 WBC (Bld) 3.5 % Normal [facility] Comment on above: Order Comment: Speci men Type: BLOOD SPECIMENOrdering Facility: [facility] Address: [address] [place] [address] Performed By: #### 5 7021-8 ####[facility] LABORATORYCLIA [id number] [address] [place] Erythrocyte distribution width (RBC) [Ratio] 12.8 % Normal 11.5-15.0 [facility] Comment on above: Order Comment: Speci men Type: BLOOD SPECIMENOrdering Facility: [facility] Address: [address] [place] [address] Performed By: #### 5 7021-8 ####ALANIS LABORATORYCLIA [id number] [place] [address] [place] Hematocrit (Bld) [Volume fraction] 37.0 % Low 39.0-51.0 [facility] Comment on above: Order Comment: Speci men Type: BLOOD SPECIMENOrdering Facility: [facility] Address: [address] [place] [address] Performed By: #### 5 7021-8 ####ALANIS LABORATORYCLIA [id number] [place] [address] [place] Hemoglobin (Bld) [Mass/Vol] 13.0 g/dL Normal 13.0-17.0 [facility] Comment on above: Order Comment: Speci men Type: BLOOD SPECIMENOrdering Facility: [facility] Address: [address] [place] [address] Performed By: #### 5 7021-8 ####[facility] LABORATORYCLIA [id number] [place] [address] [place] Immature granulocytes (Bld) [#/Vol] 0.06 10*3/uL Normal <0.10 [facility] Comment on above: Order Comment: Speci men Type: BLOOD SPECIMENOrdering Facility: [facility] Address: [address] [place] [address] Performed By: #### 5 7021-8 ####[facility] LABORATORYCLIA [id number] [address] [place] Immature granulocytes/100 WBC (Bld) 0.7 % Normal [facility] Comment on above: Order Comment: Speci men Type: BLOOD SPECIMENOrdering Facility: [facility] Address: [address] [place] [address] Performed By: #### 5 7021-8 ####[facility] LABORATORYCLIA [id number] [place] [address] [place] Lymphocytes (Bld) [#/Vol] 3.23 10*3/uL Normal 1.00-4.00 [facility] Comment on above: Order Comment: Speci men Type: BLOOD SPECIMENOrdering Facility: [facility] Address: [address] [place] [address] Performed By: #### 5 7021-8 ####[facility] LABORATORYCLIA [id number] [address] [place] Lymphocytes/100 WBC (Bld) 40.0 % Normal [facility] Comment on above: Order Comment: Speci men Type: BLOOD SPECIMENOrdering Facility: [facility] Address: [address] [place] [address] Performed By: #### 5 7021-8 ####[facility] LABORATORYCLIA [id number] [place] [address] [place] MCH (RBC) [Entitic mass] 30.3 pg Normal 26.0-34.0 [facility] Comment on above: Order Comment: Speci men Type: BLOOD SPECIMENOrdering Facility: [facility] Address: [address] [place] [address] Performed By: #### 5 7021-8 ####[facility] LABORATORYCLIA [id number] [address] [place] MCHC (RBC) [Mass/Vol] 35.1 g/dL Normal 30.5-36.0 [facility] Comment on above: Order Comment: Speci men Type: BLOOD SPECIMENOrdering Facility: [facility] Address: [address] [place] [address] Performed By: #### 5 7021-8 ####[facility] LABORATORYCLIA [id number] [address] [place] MCV (RBC) [Entitic vol] 86.2 fL Normal 80.0-100.0 [facility] Comment on above: Order Comment: Speci men Type: BLOOD SPECIMENOrdering Facility: [facility] Address: [address] [place] [address] Performed By: #### 5 7021-8 ####[facility] LABORATORYCLIA [id number] [address] [place] Monocytes (Bld) [#/Vol] 0.40 10*3/uL Normal <0.87 [facility] Comment on above: Order Comment: Speci men Type: BLOOD SPECIMENOrdering Facility: [facility] Address: [address] [place] [address] Performed By: #### 5 7021-8 ####[facility] LABORATORYCLIA [id number] [address] [place] Monocytes/100 WBC (Bld) 5.0 % Normal [facility] Comment on above: Order Comment: Speci men Type: BLOOD SPECIMENOrdering Facility: [facility] Address: [address] [place] [address] Performed By: #### 5 7021-8 ####[facility] LABORATORYCLIA [id number] [place] [address] [place] Neutrophils (Bld) [#/Vol] 4.03 10*3/uL Normal 1.45-7.50 [facility] Comment on above: Order Comment: Speci men Type: BLOOD SPECIMENOrdering Facility: [facility] Address: [address] [place] [address] Performed By: #### 5 7021-8 ####[facility] LABORATORYCLIA [id number] [address] [place] Neutrophils/100 WBC (Bld) 49.9 % Normal [facility] Comment on above: Order Comment: Speci men Type: BLOOD SPECIMENOrdering Facility: [facility] Address: [address] [place] [address] Performed By: #### 5 7021-8 ####ALANIS LABORATORYCLIA [id number] [place] [address] [place] Nucleated RBC (Bld) [#/Vol] 10*3/uL Normal <0.01 [facility] Comment on above: Order Comment: Speci men Type: BLOOD SPECIMENOrdering Facility: [facility] Address: [address] [place] [address] Performed By: #### 5 7021-8 ####ALAN[facility] LABORATORYCLIA [id number] [place] [address] [place] Nucleated RBC/100 WBC (Bld) [Ratio] 0.0 /100 WBC Normal [facility] Comment on above: Order Comment: Speci men Type: BLOOD SPECIMENOrdering Facility: [facility] Address: [address] [place] [address] Performed By: #### 5 7021-8 ####ALANIS LABORATORYCLIA [id number] [place] [address] [place] Platelet mean volume (Bld) [Entitic vol] 10.2 fL Normal 9.0-12.7 [facility] Comment on above: Order Comment: Speci men Type: BLOOD SPECIMENOrdering Facility: [facility] Address: [address] [place] [address] Performed By: #### 5 7021-8 ####ALAN[facility] LABORATORYCLIA [id number] [place] [address] [place] Platelets (Bld) [#/Vol] 317 10*3/uL Normal 150-400 [facility] Comment on above: Order Comment: Speci men Type: BLOOD SPECIMENOrdering Facility: [facility] Address: [address] [place] [address] Performed By: #### 5 7021-8 ####ALANIS LABORATORYCLIA [id number] [place] [address] [place] RBC (Bld) [#/Vol] 4.29 10*6/uL Normal 4.20-6.00 [facility] Comment on above: Order Comment: Speci men Type: BLOOD SPECIMENOrdering Facility: [facility] Address: [address] [place] [address] Performed By: #### 5 7021-8 ####ALAN[facility] LABORATORYCLIA [id number] [place] [address] [place] WBC (Bld) [#/Vol] 8.07 10*3/uL Normal 3.70-11.00 [facility] Comment on above: Order Comment: Speci men Type: BLOOD SPECIMENOrdering Facility: [facility] Address: [address] [place] [address] Performed By: #### 5 7021-8 ####ALANIS LABORATORYCLIA [id number] [place] [address] [place] 10-Hydroxycarbazepine [Mass/ Vol]Ordered By: Evangelista Allen on 10-09-2024 Interpretation and review of laboratory results Normal [facility] Basic metabolic 2000 panelon 10-09-2024 Anion gap [Moles/Vol] 12 mmol/L 8 - 15 mmol/L [facility] Calcium [Mass/Vol] 8.9 mg/dL 8.5 - 10. 2 mg/dL [facility] Chloride [Moles/Vol] 105 mmol/L 98 - 10 7 mmol/L [facility] CO2 [Moles/Vol] 24 mmol/L 22 - 30 mmol/L [facility] Creatinine [Mass/Vol] 1.08 mg/dL 0.73 - 1.22 mg/dL [facility] GFR/1.73 sq M.predicted among non-blacks MDRD (S/P/Bld) [Vol rate/Area] 80 mL/min/{1.73_m2} - PINF [facility] Comment on above: Estimated Glomerular Filtration [...] 154 mg/dL High 74 - 99 mg/dL [facility] Comment on above: The [place] Diabete s Association (ADA) provides guidance for [...] Standards of Medical Care in Diabetes 2016, [place] [employer]. Diabetes Care. 2016.39(Suppl 1). Interpretation and review of laboratory results Abnormal [facility] Potassium [Moles/Vol] 4 mmol/L 3.7 - 5.1 mmol/L [facility] Sodium [Moles/Vol] 141 mmol/L 136 - 144 mmol/L [facility] Urea nitrogen [Mass/Vol] 27 mg/dL High 9 - 24 mg/dL [facility] Anion gap [Moles/Vol] 12 mmol/L Normal 8-15 [facility] Comment on above: Order Comment: Speci men Type: BLOOD SPECIMEN Ordering Facility: [facility] Address: [address] [place] [address] Performed By: #### 2 4362-6 #### [facility] CLIA [id number] [address] [place] [address] [place] Calcium [Mass/Vol] 8.9 mg/dL Normal 8.5-10.2 [facility] Comment on above: Order Comment: Speci men Type: BLOOD SPECIMEN Ordering Facility: [facility] Address: [address] [place] [address] Performed By: #### 2 4362-6 #### [facility] CLIA [id number] [address] [place] [address] [place] Chloride [Moles/Vol] 105 mmol/L Normal 98-107 [facility] Comment on above: Order Comment: Speci men Type: BLOOD SPECIMEN Ordering Facility: [facility] Address: [address] [place] [address] Performed By: #### 2 4362-6 #### [facility] CLIA [id number] [address] [place] [address] [place] CO2 [Moles/Vol] 24 mmol/L Normal 22-30 [facility] Comment on above: Order Comment: Speci men Type: BLOOD SPECIMEN Ordering Facility: [facility] Address: [address] [place] [address] Performed By: #### 2 4362-6 #### [facility] CLIA [id number] [address] [place] [address] [place] Creatinine [Mass/Vol] 1.08 mg/dL Normal 0.73-1.22 [facility] Comment on above: Order Comment: Jonas florez Type: BLOOD SPECIMEN Ordering Facility: [facility] Address: [address] [place] [address] Performed By: #### 2 4362-6 #### [facility] CLIA [id number] [address] [place] [address] Creatinine and Glomerular filtration rate.predicted panel (S/P/Bld) 80 mL/min/1.73m??? Normal >=60 [facility] Comment on above: Order Comment: Jonas florez Type: BLOOD SPECIMEN Ordering Facility: [facility] Address: [address] [place] [address] Result Comment: Bianca mated Glomerular Filtration Rate [...] actual GFR. Performed By: #### 2 4362-6 #### [facility] CLIA [id number] [address] [place] [address] [place] Glucose [Mass/Vol] 154 mg/dL High 74-99 [facility] Comment on above: Order Comment: Jonas florez Type: BLOOD SPECIMEN Ordering Facility: [facility] Address: [address] [place] [address] Result Comment: The [place] Diabetes Association (ADA) provides guidance for cutoff [...] Standards of Medical Care in Diabetes 2016, [place] [employer]. Diabetes Care. 2016.39(Suppl 1). Performed By: #### 2 4362-6 #### [facility] CLIA [id number] [address] [place] [address] [place] Potassium [Moles/Vol] 4.0 mmol/L Normal 3.7-5.1 [facility] Comment on above: Order Comment: Jonas floerz Type: BLOOD SPECIMEN Ordering Facility: [facility] Address: [address] [place] [address] Performed By: #### 2 4362-6 #### [facility] CLIA [id number] [address] [place] [address] [place] Sodium [Moles/Vol] 141 mmol/L Normal 136-144 [facility] Comment on above: Order Comment: Jonas florez Type: BLOOD SPECIMEN [facility] Address: [address] [place] [address] Performed By: #### 2 4362-6 #### [facility] CLIA [id number] [address] [place] [address] [place] Urea nitrogen [Mass/Vol] 27 mg/dL High 9-24 [facility] Comment on above: Order Comment: Jonas florez Type: BLOOD SPECIMEN Ordering Facility: [facility] Address: [address] [place] [address] Performed By: #### 2 4362-6 #### [facility] CLIA [id number] [address] [place] [address] [place] CBC panel Auto (Bld)on 10-09 Erythrocyte distribution width (RBC) [Ratio] 12.4 % 11.5 - 15.0 % [facility] Hematocrit (Bld) [Volume fraction] 34.3 % Low 39.0 - 51.0 % [facility] Hemoglobin (Bld) [Mass/Vol] 12.3 g/dL Low 13.0 - 17.0 g/dL [facility] Interpretation and review of laboratory results Abnormal [facility] MCH (RBC) [Entitic mass] 30.8 pg 26.0 - 34.0 pg [facility] MCHC (RBC) [Mass/Vol] 35.9 g/dL 30.5 - 36.0 g/dL [facility] MCV (RBC) [Entitic vol] 86 fL 80.0 - 100.0 fL [facility] Nucleated RBC (Bld) [#/Vol] NINF [facility] Platelet mean volume (Bld) [Entitic vol] 10.2 fL 9.0 - 12.7 fL [facility] Platelets (Bld) [#/Vol] 291 10*3/uL [facility] RBC (Bld) [#/Vol] 3.99 10*6/uL Low 4.20 - 6.0 0 m/uL [facility] WBC (Bld) [#/Vol] 9.25 10*3/uL [facility] Erythrocyte distribution width (RBC) [Ratio] 12.4 % Normal 11.5-15.0 [facility] Comment on above: Order Comment: Speci men Type: BLOOD SPECIMEN [facility] Address: [address] [place] [address] Performed By: #### 5 8410-2 #### [facility] CLIA [id number] [address] [place] [address] [place] Hematocrit (Bld) [Volume fraction] 34.3 % Low 39.0-51.0 [facility] Comment on above: Order Comment: Speci men Type: BLOOD SPECIMEN [facility] Address: [address] [place] [address] Performed By: #### 5 8410-2 #### [facility] CLIA [id number] [address] [place] [address] [place] Hemoglobin (Bld) [Mass/Vol] 12.3 g/dL Low 13.0-17.0 [facility] Comment on above: Order Comment: Speci men Type: BLOOD SPECIMEN [facility] Address: [address] [place] [address] Performed By: #### 5 8410-2 #### [facility] CLIA [id number] [address] MCH (RBC) [Entitic mass] 30.8 pg Normal 26.0-34.0 [facility] Comment on above: Order Comment: Speci men Type: BLOOD SPECIMEN [facility] Address: [address] [place] [address] Performed By: #### 5 8410-2 #### [facility] CLIA [id number] [address] [place] MCHC (RBC) [Mass/Vol] 35.9 g/dL Normal 30.5-36.0 [facility] Comment on above: Order Comment: Speci men Type: BLOOD SPECIMEN [facility] Address: [address] [place] [address] Performed By: #### 5 8410-2 #### [facility] CLIA [id number] [address] MCV (RBC) [Entitic vol] 86.0 fL Normal 80.0-100.0 [facility] Comment on above: Order Comment: Speci men Type: BLOOD SPECIMEN [facility] Address: [address] [place] [address] Performed By: #### 5 8410-2 #### [facility] CLIA [id number] [address] Nucleated RBC (Bld) [#/Vol] 10*3/uL Normal <0.01 [facility] Comment on above: Order Comment: Speci men Type: BLOOD SPECIMEN [facility] Address: [address] [place] [address] Performed By: #### 5 8410-2 #### [facility] CLIA [id number] [address] Platelet mean volume (Bld) [Entitic vol] 10.2 fL Normal 9.0-12.7 [facility] Comment on above: Order Comment: Speci men Type: BLOOD SPECIMEN [facility] Address: [address] [place] [address] Performed By: #### 5 8410-2 #### [facility] CLIA [id number] [address] [place] Platelets (Bld) [#/Vol] 291 10*3/uL Normal 150-400 [facility] Comment on above: Order Comment: Speci men Type: BLOOD SPECIMEN [facility] Address: [address] [place] [address] Performed By: #### 5 8410-2 #### [facility] CLIA [id number] [address] [place] [address] [place] RBC (Bld) [#/Vol] 3.99 10*6/uL Low 4.20-6.00 [facility] Comment on above: Order Comment: Speci men Type: BLOOD SPECIMEN [facility] Address: [address] [place] [address] Performed By: #### 5 8410-2 #### [facility] CLIA [id number] [address] [place] [address] [place] WBC (Bld) [#/Vol] 9.25 10*3/uL Normal 3.70-11.00 [facility] Comment on above: Order Comment: Speci men Type: BLOOD SPECIMEN [facility] Address: [address] [place] [address] Performed By: #### 5 8410-2 #### [facility] CLIA [id number] [address] [place] OXCARBAZEPINE BLDOrdered By: Evangelista Allen on 10-09-2024 10-Hydroxycarbazepine [Mass/Vol] 3.2 ug/mL 3.0 - 35.0 ug/mL [facility] Comment on above: This test was develo ped, and its performance characteristics determined by the [facility] Department of Pathology and Laboratory Medicine. It has not been cleared or approved by the FDA. The [facility] Department of Pathology and Laboratory Medicine is regulated under CLIA as qualified to perform high-complexity testing. This test is used for clinical purposes. It should not be regarded as investigational or for research. 10OH-Carbazepine SerPl-mCnco n 10-07-2024 10-Hydroxycarbazepine [Mass/Vol] 3.2 ug/mL Normal 3.0-35.0 [facility] Comment on above: Order Comment: Speci men Type: BLOOD SPECIMENOrdering Facility: [facility] Address: [address] [place] [address] Result Comment: This test was developed, and its performance characteristics determined by the [facility] Department of Pathology and Laboratory Medicine. It has not been cleared or approved by the FDA. The [facility] Department of Pathology and Laboratory Medicine is regulated under CLIA as qualified to perform high-complexity testing. This test is used for clinical purposes. It should not be regarded as investigational or for research. Performed By: #### 3 1019-3 ####[facility] [id number] [place] [address] [place] Basic metabolic 2000 panelon 10-07-2024 Anion gap [Moles/Vol] 9 mmol/L 8 - 15 mmol/L [facility] Calcium [Mass/Vol] 9.1 mg/dL 8.5 - 10. 2 mg/dL [facility] Chloride [Moles/Vol] 105 mmol/L 98 - 10 7 mmol/L [facility] CO2 [Moles/Vol] 26 mmol/L 22 - 30 mmol/L [facility] Creatinine [Mass/Vol] 1.07 mg/dL 0.73 - 1.22 mg/dL [facility] GFR/1.73 sq M.predicted among non-blacks MDRD (S/P/Bld) [Vol rate/Area] 80 mL/min/{1.73_m2} - PINF [facility] Comment on above: Estimated Glomerular Filtration [...] 182 mg/dL High 74 - 99 mg/dL [facility] Comment on above: The [place] Diabete s Association (ADA) provides guidance for [...] Standards of Medical Care in Diabetes 2016, [place] [employer]. Diabetes Care. 2016.39(Suppl 1). Interpretation and review of laboratory results Abnormal [facility] Potassium [Moles/Vol] 4.1 mmol/L 3.7 - 5.1 mmol/L [facility] Sodium [Moles/Vol] 140 mmol/L 136 - 144 mmol/L [facility] Urea nitrogen [Mass/Vol] 17 mg/dL 9 - 24 mg/dL [facility] Anion gap [Moles/Vol] 9 mmol/L Normal 8-15 [facility] Comment on above: Order Comment: Speci men Type: BLOOD SPECIMEN Ordering Facility: [facility] Address: [address] [place] [address] Performed By: #### 3 969-3 #### [facility] CLIA [id number] [address] [place] [address] [place] Calcium [Mass/Vol] 9.1 mg/dL Normal 8.5-10.2 [facility] Comment on above: Order Comment: Speci men Type: BLOOD SPECIMEN Ordering Facility: [facility] Address: [address] [place] [address] Performed By: #### 3 969-3 #### [facility] CLIA [id number] [address] [place] [address] [place] Chloride [Moles/Vol] 105 mmol/L Normal 98-107 [facility] Comment on above: Order Comment: Speci men Type: BLOOD SPECIMEN Ordering Facility: [facility] Address: [address] [place] [address] Performed By: #### 3 969-3 #### [facility] CLIA [id number] [address] [place] [address] [place] CO2 [Moles/Vol] 26 mmol/L Normal 22-30 [facility] Comment on above: Order Comment: Speci men Type: BLOOD SPECIMEN Ordering Facility: [facility] Address: [address] [place] [address] Performed By: #### 3 969-3 #### [facility] CLIA [id number] [address] [place] [address] [place] Creatinine [Mass/Vol] 1.07 mg/dL Normal 0.73-1.22 [facility] Comment on above: Order Comment: Speci men Type: BLOOD SPECIMEN Ordering Facility: [facility] Address: [address] [place] [address] Performed By: #### 3 969-3 #### [facility] CLIA [id number] [address] [place] [address] [place] [facility] Creatinine and Glomerular filtration rate.predicted panel (S/P/Bld) 80 mL/min/1.73m??? Normal >=60 [facility] Comment on above: Order Comment: Speci men Type: BLOOD SPECIMEN Ordering Facility: [facility] Address: [address] [place] [address] Result Comment: Bianca mated Glomerular Filtration Rate [...] accurately reflect actual GFR. Performed By: #### 3 969-3 #### [facility] CLIA [id number] [address] [place] [address] [place] Glucose [Mass/Vol] 182 mg/dL High 74-99 [facility] Comment on above: Order Comment: Speci men Type: BLOOD SPECIMEN Ordering Facility: [facility] Address: [address] [place] [address] Result Comment: The [place] Diabetes [employer] (ADA) provides guidance for cutoff [...] Standards of Medical Care in Diabetes 2016, [place] [employer]. Diabetes Care. 2016.39(Suppl 1). Performed By: #### 3 969-3 #### [facility] CLIA [id number] [address] [place] [address] [place] Potassium [Moles/Vol] 4.1 mmol/L Normal 3.7-5.1 [facility] Comment on above: Order Comment: Jonas men Type: BLOOD SPECIMEN Ordering Facility: [facility] Address: [address] [place] [address] Performed By: #### 3 969-3 #### [facility] CLIA [id number] [address] [place] [address] [place] Sodium [Moles/Vol] 140 mmol/L Normal 136-144 [facility] Comment on above: Order Comment: Awaisi men Type: BLOOD SPECIMEN Ordering Facility: [facility] Address: [address] [place] [address] Performed By: #### 3 969-3 #### [facility] CLIA [id number] [address] [place] [address] [place] Urea nitrogen [Mass/Vol] 17 mg/dL Normal 9-24 [facility] Comment on above: Order Comment: Speci men Type: BLOOD SPECIMEN Ordering Facility: [facility] Address: [address] [place] [address] Performed By: #### 3 969-3 #### [facility] CLIA [id number] [address] [place] [address] [place] [address] [place] CBC W Auto Differential pane l (Bld)on 10-07-2024 Basophils (Bld) [#/Vol] 0.07 10*3/uL [facility] Basophils/100 WBC (Bld) 0.6 % C [facility] Differential cell count method Nom (Bld) Auto [facility] Eosinophils (Bld) [#/Vol] 0.25 10*3/uL [facility] Eosinophils/100 WBC (Bld) 2.2 % [facility] [facility] Erythrocyte distribution width (RBC) [Ratio] 12.8 % 11.5 - 15.0 % [facility] Hematocrit (Bld) [Volume fraction] 37 % Low 39.0 - 51.0 % [facility] Hemoglobin (Bld) [Mass/Vol] 13.1 g/dL 13.0 - 17.0 g/dL [facility] Immature granulocytes (Bld) [#/Vol] 0.07 10*3/uL [facility] Immature granulocytes/100 WBC (Bld) 0.6 % [facility] Interpretation and review of laboratory results Abnormal [facility] Lymphocytes (Bld) [#/Vol] 2.44 10*3/uL [facility] Lymphocytes/100 WBC (Bld) 21.8 % [facility] MCH (RBC) [Entitic mass] 30.6 pg 26.0 - 34.0 pg [facility] MCHC (RBC) [Mass/Vol] 35.4 g/dL 30.5 - 36.0 g/dL [facility] MCV (RBC) [Entitic vol] 86.4 fL 80.0 - 100.0 fL [facility] Monocytes (Bld) [#/Vol] 0.77 10*3/uL [facility] Monocytes/100 WBC (Bld) 6.9 % C [facility] Neutrophils (Bld) [#/Vol] 7.61 10*3/uL High [facility] Neutrophils/100 WBC (Bld) 67.9 % [facility] Nucleated RBC (Bld) [#/Vol] NINF [facility] Nucleated RBC/100 WBC (Bld) [Ratio] 0 % /100 WBC [facility] Platelet mean volume (Bld) [Entitic vol] 10.7 fL 9.0 - 12.7 fL [facility] Platelets (Bld) [#/Vol] 276 10*3/uL [facility] RBC (Bld) [#/Vol] 4.28 10*6/uL 4.20 - 6.0 0 m/uL [facility] WBC (Bld) [#/Vol] 11.21 10*3/uL [facility] Basophils (Bld) [#/Vol] 0.07 10*3/uL Normal <0.11 [facility] Comment on above: Order Comment: Speci men Type: BLOOD SPECIMEN Ordering Facility: [facility] Address: [address] [place] [address] Performed By: #### 3 969-3 #### [facility] CLIA [id number] [address] [place] [address] [place] Basophils/100 WBC (Bld) 0.6 % Normal [facility] Comment on above: Order Comment: Speci men Type: BLOOD SPECIMEN Ordering Facility: [facility] Address: [address] [place] [address] Performed By: #### 3 969-3 #### [facility] CLIA [id number] [address] [place] [address] [place] Differential cell count method Nom (Bld) Auto Normal [facility] Comment on above: Order Comment: Speci men Type: BLOOD SPECIMEN Ordering Facility: [facility] Address: [address] [place] [address] Performed By: #### 3 969-3 #### [facility] CLIA [id number] [address] [place] [address] [place] Eosinophils (Bld) [#/Vol] 0.25 10*3/uL Normal <0.46 [facility] Comment on above: Order Comment: Speci men Type: BLOOD SPECIMEN Ordering Facility: [facility] Address: [address] [place] [address] Performed By: #### 3 969-3 #### [facility] CLIA [id number] [address] [place] [address] [place] Eosinophils/100 WBC (Bld) 2.2 % Normal [facility] Comment on above: Order Comment: Speci men Type: BLOOD SPECIMEN Ordering Facility: [facility] Address: [address] [place] [address] Performed By: #### 3 969-3 #### [facility] CLIA [id number] [address] [place] [address] [place] Erythrocyte distribution width (RBC) [Ratio] 12.8 % Normal 11.5-15.0 [facility] Comment on above: Order Comment: Speci men Type: BLOOD SPECIMEN Ordering Facility: [facility] Address: [address] [place] [address] Performed By: #### 3 969-3 #### [facility] CLIA [id number] [address] [place] [address] [place] Hematocrit (Bld) [Volume fraction] 37.0 % Low 39.0-51.0 [facility] Comment on above: Order Comment: Speci men Type: BLOOD SPECIMEN Ordering Facility: [facility] Address: [address] [place] [address] Performed By: #### 3 969-3 #### [facility] CLIA [id number] [address] [place] [address] [place] Hemoglobin (Bld) [Mass/Vol] 13.1 g/dL Normal 13.0-17.0 [facility] Comment on above: Order Comment: Speci men Type: BLOOD SPECIMEN Ordering Facility: [facility] Address: [address] [place] [address] Performed By: #### 3 969-3 #### [facility] CLIA [id number] [address] [place] [address] [place] Immature granulocytes (Bld) [#/Vol] 0.07 10*3/uL Normal <0.10 [facility] Comment on above: Order Comment: Speci men Type: BLOOD SPECIMEN Ordering Facility: [facility] Address: [address] [place] [address] Performed By: #### 3 969-3 #### [facility] CLIA [id number] [address] [place] [address] [place] Immature granulocytes/100 WBC (Bld) 0.6 % Normal [facility] Comment on above: Order Comment: Speci men Type: BLOOD SPECIMEN Ordering Facility: [facility] Address: [address] [place] [address] Performed By: #### 3 969-3 #### [facility] CLIA [id number] [address] [place] [address] [place] Lymphocytes (Bld) [#/Vol] 2.44 10*3/uL Normal 1.00-4.00 [facility] Comment on above: Order Comment: Speci men Type: BLOOD SPECIMEN Ordering Facility: [facility] Address: [address] [place] [address] Performed By: #### 3 969-3 #### [facility] CLIA [id number] [address] [place] [address] [place] Lymphocytes/100 WBC (Bld) 21.8 % Normal [facility] Comment on above: Order Comment: Speci men Type: BLOOD SPECIMEN Ordering Facility: [facility] Address: [address] [place] [address] Performed By: #### 3 969-3 #### [facility] CLIA [id number] [id number] [address] [place] MCH (RBC) [Entitic mass] 30.6 pg Normal 26.0-34.0 [facility] Comment on above: Order Comment: Speci men Type: BLOOD SPECIMEN Ordering Facility: [facility] Address: [address] [place] [address] Performed By: #### 3 969-3 #### [facility] CLIA [id number] [address] [place] [address] [place] MCHC (RBC) [Mass/Vol] 35.4 g/dL Normal 30.5-36.0 [facility] Comment on above: Order Comment: Speci men Type: BLOOD SPECIMEN Ordering Facility: [facility] Address: [address] [place] [address] Performed By: #### 3 969-3 #### [facility] CLIA [id number] [address] [place] [address] [place] MCV (RBC) [Entitic vol] 86.4 fL Normal 80.0-100.0 C [facility] Comment on above: Order Comment: Speci men Type: BLOOD SPECIMEN Ordering Facility: [facility] Address: [address] [place] [address] Performed By: #### 3 969-3 #### [facility] CLIA [id number] [address] [place] [address] [place] Monocytes (Bld) [#/Vol] 0.77 10*3/uL Normal <0.87 [facility] Comment on above: Order Comment: Speci men Type: BLOOD SPECIMEN Ordering Facility: [facility] Address: [address] [place] [address] Performed By: #### 3 969-3 #### [facility] CLIA [id number] [address] [place] [address] [place] Monocytes/100 WBC (Bld) 6.9 % Normal [facility] Comment on above: Order Comment: Speci men Type: BLOOD SPECIMEN Ordering Facility: [facility] Address: [address] [place] [address] Performed By: #### 3 969-3 #### [facility] CLIA [id number] [address] [place] [address] [place] Neutrophils (Bld) [#/Vol] 7.61 10*3/uL High 1.45-7.50 [facility] Comment on above: Order Comment: Speci men Type: BLOOD SPECIMEN Ordering Facility: [facility] Address: [address] [place] [address] Performed By: #### 3 969-3 #### [facility] CLIA [id number] [address] [place] [address] [place] Neutrophils/100 WBC (Bld) 67.9 % Normal [facility] Comment on above: Order Comment: Speci men Type: BLOOD SPECIMEN Ordering Facility: [facility] Address: [address] [place] [address] Performed By: #### 3 969-3 #### [facility] CLIA [id number] [address] [place] [address] [place] Nucleated RBC (Bld) [#/Vol] 10*3/uL Normal <0.01 [facility] Comment on above: Order Comment: Speci men Type: BLOOD SPECIMEN Ordering Facility: [facility] Address: [address] [place] [address] Performed By: #### 3 969-3 #### [facility] CLIA [id number] [address] [place] [address] [place] Nucleated RBC/100 WBC (Bld) [Ratio] 0.0 /100 WBC Normal [facility] Comment on above: Order Comment: Speci men Type: BLOOD SPECIMEN Ordering Facility: [facility] Address: [address] [place] [address] Performed By: #### 3 969-3 #### [facility] CLIA [id number] [address] [place] [address] [place] Platelet mean volume (Bld) [Entitic vol] 10.7 fL Normal 9.0-12.7 [facility] Comment on above: Order Comment: Speci men Type: BLOOD SPECIMEN Ordering Facility: [facility] Address: [address] [place] [address] Performed By: #### 3 969-3 #### [facility] CLIA [id number] [address] [place] [address] [place] Platelets (Bld) [#/Vol] 276 10*3/uL Normal 150-400 [facility] Comment on above: Order Comment: Speci men Type: BLOOD SPECIMEN Ordering Facility: [facility] Address: [address] [place] [address] Performed By: #### 3 969-3 #### [facility] CLIA [id number] [address] [place] [address] [place] RBC (Bld) [#/Vol] 4.28 10*6/uL Normal 4.20-6.00 [facility] Comment on above: Order Comment: Speci men Type: BLOOD SPECIMEN Ordering Facility: [facility] Address: [address] [place] [address] Performed By: #### 3 969-3 #### [facility] CLIA [id number] [address] [place] [address] [place] WBC (Bld) [#/Vol] 11.21 10*3/uL High 3.70-11.00 [facility] Comment on above: Order Comment: Speci men Type: BLOOD SPECIMEN Ordering Facility: [facility] Address: [address] [place] [address] Performed By: #### 3 969-3 #### [facility] CLIA [id number] [address] [place] [address] [place] 3610-02-2024 36 Recent Visits Date Type Provider Dept 05/02/24 Office Visit Nena Pardo DO [facility] 03/29/24 Office Visit Nena Pardo DO [facility] Showing recent visits within past 365 days and meeting all other requirements Future Appointments Date Type Provider Dept 10/07/24 Appointment Nena Pardo DO [facility] Showing future appointments within next 90 days [...] 5.0 (H) 03/29/2024 NONHDLCHOLES 135 (H) 03/29/2024 [facility] Basic metabolic 2000 panelon 09-30-2024 Anion gap [Moles/Vol] 13 mmol/L 8 - 15 mmol/L [facility] Calcium [Mass/Vol] 9.1 mg/dL 8.5 - 10. 2 mg/dL [facility] Chloride [Moles/Vol] 106 mmol/L 98 - 10 7 mmol/L [facility] CO2 [Moles/Vol] 22 mmol/L 22 - 30 mmol/L [facility] Creatinine [Mass/Vol] 0.88 mg/dL 0.73 - 1.22 mg/dL [facility] GFR/1.73 sq M.predicted among non-blacks MDRD (S/P/Bld) [Vol rate/Area] 100 mL/min/{1.73_m2} - PINF [facility] Comment on above: Estimated Glomerular Filtration Rate (eGFR) is calculated using the 2021 CKD-EPI creatinine equation. This equation utilizes serum creatinine, sex, and age as parameters. The creatinine assay has traceable calibration to isotope dilution-mass spectrometry. Refer to KDIGO guidelines for clinical interpretation. In patients with unstable renal function, e.g. those with acute kidney injury, the eGFR may not accurately reflect actual GFR. Glucose [Mass/Vol] 139 mg/dL High 74 - 99 mg/dL [facility] Comment on above: The [place] Diab[employer] s Association (ADA) provides guidance for [...] Standards of Medical Care in Diabetes 2016, [place] [employer]. Diabetes Care. 2016.39(Suppl 1). Interpretation and review of laboratory results Abnormal [facility] Potassium [Moles/Vol] 3.8 mmol/L 3.7 - 5.1 mmol/L [facility] Sodium [Moles/Vol] 141 mmol/L 136 - 144 mmol/L [facility] Urea nitrogen [Mass/Vol] 18 mg/dL 9 - 24 mg/dL [facility] Anion gap [Moles/Vol] 13 mmol/L Normal 8-15 [facility] Comment on above: Order Comment: Jonas florez Type: BLOOD SPECIMEN Ordering Facility: [facility] Address: [address] [place] [address] Performed By: #### 5 8410-2 #### [facility] CLIA [id number] [address] [place] [address] [place] Calcium [Mass/Vol] 9.1 mg/dL Normal 8.5-10.2 [facility] Comment on above: Order Comment: Jonas florez Type: BLOOD SPECIMEN Ordering Facility: [facility] Address: [address] [place] [address] Performed By: #### 5 8410-2 #### [facility] CLIA [id number] [address] [place] [address] [place] Chloride [Moles/Vol] 106 mmol/L Normal 98-107 [facility] Comment on above: Order Comment: Speci men Type: BLOOD SPECIMEN Ordering Facility: [facility] Address: [address] [place] [address] Performed By: #### 5 8410-2 #### [facility] CLIA [id number] [address] [place] [address] [place] CO2 [Moles/Vol] 22 mmol/L Normal 22-30 [facility] Comment on above: Order Comment: Speci men Type: BLOOD SPECIMEN Ordering Facility: [facility] Address: [address] [place] [address] Performed By: #### 5 8410-2 #### [facility] CLIA [id number] [address] [place] Creatinine [Mass/Vol] 0.88 mg/dL Normal 0.73-1.22 [facility] Comment on above: Order Comment: Speci men Type: BLOOD SPECIMEN Ordering Facility: [facility] Address: [address] [place] [address] Performed By: #### 5 8410-2 #### [facility] CLIA [id number] [address] Creatinine and Glomerular filtration rate.predicted panel (S/P/Bld) 100 mL/min/1.73m??? Normal >=60 [facility] Comment on above: Order Comment: Speci men Type: BLOOD SPECIMEN Ordering Facility: [facility] Address: [address] [place] [address] Result Comment: Bianca mated Glomerular Filtration Rate [...] accurately reflect actual GFR. Performed By: #### 5 8410-2 #### [facility] CLIA [id number] [address] [place] [address] [place] Glucose [Mass/Vol] 139 mg/dL High 74-99 [facility] Comment on above: Order Comment: Jonas florez Type: BLOOD SPECIMEN Ordering Facility: [facility] Address: [address] [place] [address] Result Comment: The [place] Diabetes Association (ADA) provides guidance for cutoff [...] Standards of Medical Care in Diabetes 2016, [place] Diabetes Association. Diabetes Care. 2016.39(Suppl 1). Performed By: #### 5 8410-2 #### [facility] CLIA [id number] [address] [place] [address] [place] Potassium [Moles/Vol] 3.8 mmol/L Normal 3.7-5.1 [facility] Comment on above: Order Comment: Jonas florez Type: BLOOD SPECIMEN Ordering Facility: [facility] Address: [address] [place] [address] Performed By: #### 5 8410-2 #### [facility] CLIA [id number] [address] [place] [address] [place] Sodium [Moles/Vol] 141 mmol/L Normal 136-144 [facility] Comment on above: Order Comment: Jonas florez Type: BLOOD SPECIMEN Ordering Facility: [facility] Address: [address] [place] [address] Performed By: #### 5 8410-2 #### [facility] CLIA [id number] [address] [place] [address] [place] Urea nitrogen [Mass/Vol] 18 mg/dL Normal 9-24 [facility] Comment on above: Order Comment: Speci men Type: BLOOD SPECIMEN [facility]ing Facility: [facility] Address: [address] [place] [address] Performed By: #### 5 8410-2 #### [facility] CLIA [id number] [address] [place] [address] [place] CBC W Auto Differential pane l (Bld)on 09-30-2024 Basophils (Bld) [#/Vol] 0.04 10*3/uL [facility] Basophils/100 WBC (Bld) 0.6 % C [facility] Differential cell count method Nom (Bld) Auto [facility] Eosinophils (Bld) [#/Vol] 0.16 10*3/uL [facility] Eosinophils/100 WBC (Bld) 2.4 % [facility] Erythrocyte distribution width (RBC) [Ratio] 12.4 % 11.5 - 15.0 % [facility] Hematocrit (Bld) [Volume fraction] 38.8 % Low 39.0 - 51.0 % [facility] Hemoglobin (Bld) [Mass/Vol] 13.7 g/dL 13.0 - 17.0 g/dL [facility] Immature granulocytes (Bld) [#/Vol] [facility] Immature granulocytes/100 WBC (Bld) 0.3 % [facility] Interpretation and review of laboratory results Abnormal [facility] Lymphocytes (Bld) [#/Vol] 2.27 10*3/uL [facility] Lymphocytes/100 WBC (Bld) 33.7 % [facility] MCH (RBC) [Entitic mass] 30.5 pg 26.0 - 34.0 pg [facility] MCHC (RBC) [Mass/Vol] 35.3 g/dL 30.5 - 36.0 g/dL [facility] MCV (RBC) [Entitic vol] 86.4 fL 80.0 - 100.0 fL [facility] Monocytes (Bld) [#/Vol] 0.54 10*3/uL [facility] Monocytes/100 WBC (Bld) 8 % C [facility] Neutrophils (Bld) [#/Vol] 3.71 10*3/uL [facility] Neutrophils/100 WBC (Bld) 55 % [facility] Nucleated RBC (Bld) [#/Vol] NINF [facility] Nucleated RBC/100 WBC (Bld) [Ratio] 0 % /100 WBC [facility] Platelet mean volume (Bld) [Entitic vol] 10.8 fL 9.0 - 12.7 fL [facility] Platelets (Bld) [#/Vol] 216 10*3/uL [facility] RBC (Bld) [#/Vol] 4.49 10*6/uL 4.20 - 6.0 0 m/uL [facility] WBC (Bld) [#/Vol] 6.74 10*3/uL [facility] Basophils (Bld) [#/Vol] 0.04 10*3/uL Normal <0.11 [facility] Comment on above: Order Comment: Speci men Type: BLOOD SPECIMENOrdering Facility: [facility] Address: [address] [place] [address] Performed By: #### 5 7021-8 ####[facility] [id number] [place] [address] [place] Basophils/100 WBC (Bld) 0.6 % Normal [facility] Comment on above: Order Comment: Speci men Type: BLOOD SPECIMENOrdering Facility: [facility] Address: [address] [place] [address] Performed By: #### 5 7021-8 ####[facility] [id number] [place] [address] [place] Differential cell count method Nom (Bld) Auto Normal [facility] Comment on above: Order Comment: Speci men Type: BLOOD SPECIMENOrdering Facility: [facility] Address: [address] [place] [address] Performed By: #### 5 7021-8 ####[facility] [id number] [place] [address] [place] Eosinophils (Bld) [#/Vol] 0.16 10*3/uL Normal <0.46 [facility] Comment on above: Order Comment: Speci men Type: BLOOD SPECIMENOrdering Facility: [facility] Address: [address] [place] [address] Performed By: #### 5 7021-8 ####[facility] [id number] [place] [id number] [place] Eosinophils/100 WBC (Bld) 2.4 % Normal [facility] Comment on above: Order Comment: Speci men Type: BLOOD SPECIMENOrdering Facility: [facility] Address: [address] [place] [address] Performed By: #### 5 7021-8 ####[facility] [id number] [place] [address] [place] Erythrocyte distribution width (RBC) [Ratio] 12.4 % Normal 11.5-15.0 [facility] Comment on above: Order Comment: Speci men Type: BLOOD SPECIMENOrdering Facility: [facility] Address: [address] [place] [address] Performed By: #### 5 7021-8 ####[facility] [id number] [place] [address] [place] Hematocrit (Bld) [Volume fraction] 38.8 % Low 39.0-51.0 [facility] Comment on above: Order Comment: Speci men Type: BLOOD SPECIMENOrdering Facility: [facility] Address: [address] [place] [address] Performed By: #### 5 7021-8 ####[facility] [id number] [place] [address] [place] Hemoglobin (Bld) [Mass/Vol] 13.7 g/dL Normal 13.0-17.0 [facility] Comment on above: Order Comment: Speci men Type: BLOOD SPECIMENOrdering Facility: [facility] Address: [address] [place] [address] Performed By: #### 5 7021-8 ####[facility] [id number] [address] [place] Immature granulocytes (Bld) [#/Vol] 10*3/uL Normal <0.10 [facility] Comment on above: Order Comment: Speci men Type: BLOOD SPECIMENOrdering Facility: [facility] Address: [address] [place] [address] Performed By: #### 5 7021-8 ####[facility] [id number] [place] [address] [place] Immature granulocytes/100 WBC (Bld) 0.3 % Normal [facility] Comment on above: Order Comment: Speci men Type: BLOOD SPECIMENOrdering Facility: [facility] Address: [address] [place] [address] Performed By: #### 5 7021-8 ####[facility] [id number] [place] [address] [place] Lymphocytes (Bld) [#/Vol] 2.27 10*3/uL Normal 1.00-4.00 [facility] Comment on above: Order Comment: Speci men Type: BLOOD SPECIMENOrdering Facility: [facility] Address: [address] [place] [address] Performed By: #### 5 7021-8 ####[facility] [id number] [address] [place] Lymphocytes/100 WBC (Bld) 33.7 % Normal [facility] Comment on above: Order Comment: Speci men Type: BLOOD SPECIMENOrdering Facility: [facility] Address: [address] [place] [address] Performed By: #### 5 7021-8 ####[facility] [id number] [place] [address] [place] MCH (RBC) [Entitic mass] 30.5 pg Normal 26.0-34.0 [facility] Comment on above: Order Comment: Speci men Type: BLOOD SPECIMENOrdering Facility: [facility] Address: [address] [place] [address] Performed By: #### 5 7021-8 ####ALANIS LABORATORYCLIA [id number] [place] [address] [place] MCHC (RBC) [Mass/Vol] 35.3 g/dL Normal 30.5-36.0 [facility] Comment on above: Order Comment: Speci men Type: BLOOD SPECIMENOrdering Facility: [facility] Address: [address] [place] [address] Performed By: #### 5 7021-8 ####ALANIS LABORATORYCLIA [id number] [address] [place] MCV (RBC) [Entitic vol] 86.4 fL Normal 80.0-100.0 [facility] Comment on above: Order Comment: Speci men Type: BLOOD SPECIMENOrdering Facility: [facility] Address: [address] [place] [address] Performed By: #### 5 7021-8 ####ALANIS LABORATORYCLIA [id number] [place] [address] [place] Monocytes (Bld) [#/Vol] 0.54 10*3/uL Normal <0.87 [facility] Comment on above: Order Comment: Speci men Type: BLOOD SPECIMENOrdering Facility: [facility] Address: [address] [place] [address] Performed By: #### 5 7021-8 ####ALANIS LABORATORYCLIA [id number] [address] [place] Monocytes/100 WBC (Bld) 8.0 % Normal [facility] Comment on above: Order Comment: Speci men Type: BLOOD SPECIMENOrdering Facility: [facility] Address: [address] [place] [address] Performed By: #### 5 7021-8 ####ALANIS LABORATORYCLIA [id number] [place] [address] [place] Neutrophils (Bld) [#/Vol] 3.71 10*3/uL Normal 1.45-7.50 [facility] Comment on above: Order Comment: Speci men Type: BLOOD SPECIMENOrdering Facility: [facility] Address: [address] [place] [address] Performed By: #### 5 7021-8 ####ALANIS LABORATORYCLIA [id number] [address] [place] Neutrophils/100 WBC (Bld) 55.0 % Normal [facility] Comment on above: Order Comment: Speci men Type: BLOOD SPECIMENOrdering Facility: [facility] Address: [address] [place] [address] Performed By: #### 5 7021-8 ####ALANIS LABORATORYCLIA [id number] [place] [address] [place] Nucleated RBC (Bld) [#/Vol] 10*3/uL Normal <0.01 [facility] Comment on above: Order Comment: Speci men Type: BLOOD SPECIMENOrdering Facility: [facility] Address: [address] [place] [address] Performed By: #### 5 7021-8 ####ALANIS LABORATORYCLIA [id number] [place] [address] [place] Nucleated RBC/100 WBC (Bld) [Ratio] 0.0 /100 WBC Normal [facility] Comment on above: Order Comment: Speci men Type: BLOOD SPECIMENOrdering Facility: [facility] Address: [address] [place] [address] Performed By: #### 5 7021-8 ####ALANIS LABORATORYCLIA [id number] [place] [address] [place] Platelet mean volume (Bld) [Entitic vol] 10.8 fL Normal 9.0-12.7 [facility] Comment on above: Order Comment: Speci men Type: BLOOD SPECIMENOrdering Facility: [facility] Address: [address] [place] [address] Performed By: #### 5 7021-8 ####ALANIS LABORATORYCLIA [id number] [place] [id number] [place] Platelets (Bld) [#/Vol] 216 10*3/uL Normal 150-400 [facility] Comment on above: Order Comment: Speci men Type: BLOOD SPECIMENOrdering Facility: [facility] Address: [address] [place] [address] Performed By: #### 5 7021-8 ####ALANIS LABORATORYCLIA [id number] [address] [place] RBC (Bld) [#/Vol] 4.49 10*6/uL Normal 4.20-6.00 [facility] Comment on above: Order Comment: Speci men Type: BLOOD SPECIMENOrdering Facility: [facility] Address: [address] [place] [address] Performed By: #### 5 7021-8 ####RIDDLE LABORATORYCLIA [id number] [place] [address] [place] WBC (Bld) [#/Vol] 6.74 10*3/uL Normal 3.70-11.00 [facility] Comment on above: Order Comment: Speci men Type: BLOOD SPECIMENOrdering Facility: [facility] Address: [address] [place] [address] Performed By: #### 5 7021-8 ####RIDDLE LABORATORYCLIA [id number] [address] [place] CBC panel Auto (Bld)on 09-29 Erythrocyte distribution width (RBC) [Ratio] 12.5 % Normal 11.5-15.0 [facility] Comment on above: Order Comment: Speci men Type: BLOOD SPECIMENOrdering Facility: [facility] Address: [address] [place] [address] Performed By: #### 5 8410-2 ####[facility] LABCLIA [id number] [place] [address] [place] Hematocrit (Bld) [Volume fraction] 37.9 % Low 39.0-51.0 [facility] Comment on above: Order Comment: Speci men Type: BLOOD SPECIMENOrdering Facility: [facility] Address: [address] [place] [address] Performed By: #### 5 8410-2 ####[facility] LABCLIA [id number] [place] [address] [place] Hemoglobin (Bld) [Mass/Vol] 13.8 g/dL Normal 13.0-17.0 [facility] Comment on above: Order Comment: Speci men Type: BLOOD SPECIMENOrdering Facility: [facility] Address: [address] [place] [address] Performed By: #### 5 8410-2 ####[facility] LABIA [id number] [place] [address] [place] MCH (RBC) [Entitic mass] 30.9 pg Normal 26.0-34.0 [facility] Comment on above: Order Comment: Speci men Type: BLOOD SPECIMENOrdering Facility: [facility] Address: [address] [place] [address] Performed By: #### 5 8410-2 ####[facility] LABIA [id number] [place] [address] [place] MCHC (RBC) [Mass/Vol] 36.4 g/dL High 30.5-36.0 [facility] Comment on above: Order Comment: Speci men Type: BLOOD SPECIMENOrdering Facility: [facility] Address: [address] [place] [address] Performed By: #### 5 8410-2 ####[facility] LABIA [id number] [address] [place] MCV (RBC) [Entitic vol] 85.0 fL Normal 80.0-100.0 [facility] Comment on above: Order Comment: Speci men Type: BLOOD SPECIMENOrdering Facility: [facility] Address: [address] [place] [address] Performed By: #### 5 8410-2 ####[facility] LABIA [id number] [address] [place] Nucleated RBC (Bld) [#/Vol] 10*3/uL Normal <0.01 [facility] Comment on above: Order Comment: Speci men Type: BLOOD SPECIMENOrdering Facility: [facility] Address: [address] [place] [address] Performed By: #### 5 8410-2 ####[facility] LABCLIA [id number] [address] [address] [place] Platelet mean volume (Bld) [Entitic vol] 10.3 fL Normal 9.0-12.7 [facility] Comment on above: Order Comment: Speci men Type: BLOOD SPECIMENOrdering Facility: [facility] Address: [address] [place] [address] Performed By: #### 5 8410-2 ####[facility] LABCLIA [id number] [place] [id number] [place] Platelets (Bld) [#/Vol] 189 10*3/uL Normal 150-400 [facility] Comment on above: Order Comment: Speci men Type: BLOOD SPECIMENOrdering Facility: [facility] Address: [address] [place] [address] Performed By: #### 5 8410-2 ####[facility] LABIA [id number] [place] [id number] [place] RBC (Bld) [#/Vol] 4.46 10*6/uL Normal 4.20-6.00 [facility] Comment on above: Order Comment: Speci men Type: BLOOD SPECIMENOrdering Facility: [facility] Address: [address] [place] [address] Performed By: #### 5 8410-2 ####[facility] LABCLIA [id number] [place] [id number] [place] WBC (Bld) [#/Vol] 6.32 10*3/uL Normal 3.70-11.00 [facility] Comment on above: Order Comment: Speci men Type: BLOOD SPECIMENOrdering Facility: [facility] Address: [address] [place] [address] Performed By: #### 5 8410-2 ####[facility] LABCLIA [id number] [address] [place] NUTRITIONon 09-29-2024 NUTRITION HNO ID: [id number] Author: VIKKI MONTESINOS DTR Service: Nutrition Therapy Author Type: Drying Frame Operator Type: Nutrition Filed: 09/29/2024 11:02 Note Text: 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 Will need to follow up for intake improvements.) Plan of Care: Follow-Up: [facility] Reassessment Nursing Admission Assessment Malnutrition Score: 0 [...] September 29, 2024 TIME: 11:02 AM Normal [facility] Renal function 2000 panelon 09-29-2024 Albumin [Mass/Vol] 3.6 g/dL Low 3.9-4.9 [facility] Comment on above: Order Comment: Speci men Type: BLOOD SPECIMEN [facility] Address: [address] [place] [address] Performed By: #### 2 4362-6 #### [facility] CLIA [id number] [address] [place] [address] [place] Anion gap [Moles/Vol] 10 mmol/L Normal 8-15 [facility] Comment on above: Order Comment: Speci men Type: BLOOD SPECIMEN [facility] Address: [address] [place], [place] [address] Performed By: #### 2 4362-6 #### [facility] CLIA [id number] [address] [place], [place] [address] [place] Calcium [Mass/Vol] 9.2 mg/dL Normal 8.5-10.2 [facility] Comment on above: Order Comment: Speci men Type: BLOOD SPECIMEN [facility] Address: [address] [place] [address] Performed By: #### 2 4362-6 #### [facility] CLIA [id number] [address] [place] [address] [place] Chloride [Moles/Vol] 107 mmol/L Normal 98-107 [facility] Comment on above: Order Comment: Speci men Type: BLOOD SPECIMEN [facility] Address: [address] [place] [address] Performed By: #### 2 4362-6 #### [facility] CLIA [id number] [address] [place] [address] [place] CO2 [Moles/Vol] 23 mmol/L Normal 22-30 [facility] Comment on above: Order Comment: Speci men Type: BLOOD SPECIMEN [facility] Address: [address] [place], [place] [address] Performed By: #### 2 4362-6 #### [facility] CLIA [id number] [address] [place], [place] [address] [place] Creatinine [Mass/Vol] 0.92 mg/dL Normal 0.73-1.22 [facility] Comment on above: Order Comment: Speci men Type: BLOOD SPECIMEN [facility] Address: [address] [place], [place] [address] Performed By: #### 2 4362-6 #### [facility] CLIA [id number] [address] [place] [address] [place] Creatinine and Glomerular filtration rate.predicted panel (S/P/Bld) 96 mL/min/1.73m??? Normal >=60 [facility] Comment on above: Order Comment: Jonas florez Type: BLOOD SPECIMEN [facility] Address: [address] [place] [address] Result Comment: Bianca mated Glomerular Filtration Rate [...] actual GFR. Performed By: #### 2 4362-6 #### [facility] CLIA [id number] [address] [place] [address] [place] Glucose [Mass/Vol] 144 mg/dL High 74-99 [facility] Comment on above: Order Comment: Jonas florez Type: BLOOD SPECIMEN [facility] Address: [address] [place] [address] Result Comment: The [place] [employer] (ADA) provides guidance for cutoff [...] Standards of Medical Care in Diabetes 2016, [place] [employer]. Diabetes Care. 2016.39(Suppl 1). Performed By: #### 2 4362-6 #### [facility] CLIA [id number] [address] [place] [address] [place] Phosphate [Mass/Vol] 3.3 mg/dL Normal 2.7-4.8 [facility] Comment on above: Order Comment: Speci men Type: BLOOD SPECIMEN [facility] Address: [address] [place] [address] Performed By: #### 2 4362-6 #### [facility] CLIA [id number] [address] [place] [address] [place] Potassium [Moles/Vol] 3.7 mmol/L Normal 3.7-5.1 [facility] Comment on above: Order Comment: Speci men Type: BLOOD SPECIMEN [facility] Address: [address] [place] [address] Performed By: #### 2 4362-6 #### [facility] CLIA [id number] [address] [place] [address] [place] Sodium [Moles/Vol] 140 mmol/L Normal 136-144 [facility] Comment on above: Order Comment: Speci men Type: BLOOD SPECIMEN [facility] Address: [address] [place] [address] Performed By: #### 2 4362-6 #### [facility] CLIA [id number] [address] [place] [address] [place] Urea nitrogen [Mass/Vol] 18 mg/dL Normal 9-24 [facility] Comment on above: Order Comment: Speci men Type: BLOOD SPECIMEN [facility] Address: [address] [place] [address] Performed By: #### 2 4362-6 #### [facility] CLIA [id number] [address] [place] [address] [place] CBC panel Auto (Bld)on 09-28 Erythrocyte distribution width (RBC) [Ratio] 12.9 % Normal 11.5-15.0 [facility] Comment on above: Order Comment: Speci men Type: BLOOD SPECIMENOrdering Facility: [facility] Address: [address] [place] [address] Performed By: #### 5 8410-2 ####[facility] LABIA [id number] [place] [address] [place] Hematocrit (Bld) [Volume fraction] 41.6 % Normal 39.0-51.0 [facility] Comment on above: Order Comment: Speci men Type: BLOOD SPECIMENOrdering Facility: [facility] Address: [address] [place] [address] Performed By: #### 5 8410-2 ####[facility] LABIA [id number] [place] [address] [place] Hemoglobin (Bld) [Mass/Vol] 14.4 g/dL Normal 13.0-17.0 [facility] Comment on above: Order Comment: Speci men Type: BLOOD SPECIMENOrdering Facility: [facility] Address: [address] [place] [address] Performed By: #### 5 8410-2 ####[facility] [id number] [place] [address] [place] MCH (RBC) [Entitic mass] 30.1 pg Normal 26.0-34.0 [facility] Comment on above: Order Comment: Speci men Type: BLOOD SPECIMENOrdering Facility: [facility] Address: [address] [place] [address] Performed By: #### 5 8410-2 ####[facility] LABIA [id number] [place] [address] [place] MCHC (RBC) [Mass/Vol] 34.6 g/dL Normal 30.5-36.0 [facility] Comment on above: Order Comment: Speci men Type: BLOOD SPECIMENOrdering Facility: [facility] Address: [address] [place] [address] Performed By: #### 5 8410-2 ####[facility] LABCLIA [id number] [place] [address] [place] MCV (RBC) [Entitic vol] 86.8 fL Normal 80.0-100.0 [facility] Comment on above: Order Comment: Speci men Type: BLOOD SPECIMENOrdering Facility: [facility] Address: [address] [place] [address] Performed By: #### 5 8410-2 ####[facility] LABIA [id number] [place] [address] [place] Nucleated RBC (Bld) [#/Vol] 10*3/uL Normal <0.01 [facility] Comment on above: Order Comment: Speci men Type: BLOOD SPECIMENOrdering Facility: [facility] Address: [address] [place] [address] Performed By: #### 5 8410-2 ####[facility] LABIA [id number] [place] [address] [place] Platelet mean volume (Bld) [Entitic vol] 10.3 fL Normal 9.0-12.7 [facility] Comment on above: Order Comment: Speci men Type: BLOOD SPECIMENOrdering Facility: [facility] Address: [address] [place] [address] Performed By: #### 5 8410-2 ####[facility] LABIA [id number] [place] [address] [place] Platelets (Bld) [#/Vol] 180 10*3/uL Normal 150-400 [facility] Comment on above: Order Comment: Speci men Type: BLOOD SPECIMENOrdering Facility: [facility] Address: [address] [place] [address] Performed By: #### 5 8410-2 ####[facility] LABIA [id number] [place] [address] [place] RBC (Bld) [#/Vol] 4.79 10*6/uL Normal 4.20-6.00 [facility] Comment on above: Order Comment: Speci men Type: BLOOD SPECIMENOrdering Facility: [facility] Address: [address] [place] [address] Performed By: #### 5 8410-2 ####[facility] LABCLIA [id number] [address] [place] WBC (Bld) [#/Vol] 6.29 10*3/uL Normal 3.70-11.00 [facility] Comment on above: Order Comment: Speci men Type: BLOOD SPECIMENOrdering Facility: [facility] Address: [address] [place] [address] Performed By: #### 5 8410-2 ####[facility] LABCLIA [id number] [address] OF [facility] CONSULT PROGon 09-28-2024 CONSULT PROG HNO ID: [id number] Author: CHARLA GONZALES APRN.POSTAL TRANSPORTATION CLERK Service: Endocrinology Author Type: Nurse Practitioner Type: [...] 3AM 09/22/2024 186 09/23/2024 262A2 302A4 255A6 Dqvlox18 172A2 161A2 09/24/2024 170A4+2 246A4+4 Iulzlu92 196A4+2 227A4 185A2 09/25/2024 163A2+5 213A5+4 Lwxtce21 160A5+2 115 132 6 148 A5 183 A5+2 Lantus 20 181 A5+2 144 129 09/27 135 251 A6 lantus 20 170 A2 152 A2 143 3/8 130 A5 195 A5 lantus 20 143 [...] prescribed b (more content not included)... Normal [facility] CT BRAIN WO IVCONon 09-29-[address] BRAIN WO IVCON * * *Final Report* * * DATE OF EXAM: Sep 28 2024 3:00PM [facility] [place] 0504 - CT [...] conversion. This is consistent with a thalamic offset second press operator posterior circulation subacute nonhemorrhagic infarct. Stable remaining dnkgf-wonbj-crac tissues without any additional disease. 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 Supervisor Char House: [facility] Transcribe Date/Time: Sep 28 2024 3:23P Dictated by : ROHIT OROURKE MD This examination was interpreted and the report reviewed and electronically signed by: ROHIT OROURKE MD on Sep 28 2024 3:26PM EST [id number] CN Normal [facility] Renal function 2000 panelon 09-28-2024 Albumin [Mass/Vol] 3.7 g/dL Low 3.9-4.9 [facility] Comment on above: Order Comment: Speci men Type: BLOOD SPECIMENOrdering Facility: [facility] Address: [address] [place] [address] [place] [address] Performed By: #### 2 4362-6 ####[facility] LABCLIA [id number] [facility] [address] [address] [place] Anion gap [Moles/Vol] 14 mmol/L Normal 8-15 [facility] Comment on above: Order Comment: Speci men Type: BLOOD SPECIMENOrdering Facility: [facility] Address: [address] [place], [place] [address] Performed By: #### 2 4362-6 ####[facility] LABCLIA [id number] [facility] [place] [address] [place] Calcium [Mass/Vol] 9.1 mg/dL Normal 8.5-10.2 [facility] Comment on above: Order Comment: Speci men Type: BLOOD SPECIMENOrdering Facility: [facility] Address: [address] [place] [address] Performed By: #### 2 4362-6 ####[facility] LABCLIA [id number] [place] [address] [place] Chloride [Moles/Vol] 107 mmol/L Normal 98-107 [facility] Comment on above: Order Comment: Speci men Type: BLOOD SPECIMENOrdering Facility: [facility] Address: [address] [place], [place] [address] Performed By: #### 2 4362-6 ####[facility] LABCLIA [id number] [place] [id number] [place] CO2 [Moles/Vol] 22 mmol/L Normal 22-30 [facility] Comment on above: Order Comment: Speci men Type: BLOOD SPECIMENOrdering Facility: [facility] Address: [address] [place], [place] [address] Performed By: #### 2 4362-6 ####[facility] LABCLIA [id number] [address] [address] [place] Creatinine [Mass/Vol] 0.88 mg/dL Normal 0.73-1.22 [facility] Comment on above: Order Comment: Speci men Type: BLOOD SPECIMENOrdering Facility: [facility] Address: [address] [place] [address] Performed By: #### 2 4362-6 ####[facility] [id number] [place] [address] [place] Creatinine and Glomerular filtration rate.predicted panel (S/P/Bld) 100 mL/min/1.73m??? Normal >=60 [facility] Comment on above: Order Comment: Jonas florez Type: BLOOD SPECIMENOrdering Facility: [facility] Address: [address] [place] [address] Result Comment: Bianca mated Glomerular Filtration Rate [...] actual GFR. Performed By: #### 2 4362-6 ####[facility] [id number] [place] [address] [place] Glucose [Mass/Vol] 108 mg/dL High 74-99 [facility] Comment on above: Order Comment: Jonas florez Type: BLOOD SPECIMENOrdering Facility: [facility] Address: [address] [place] [address] Result Comment: The [place] [employer] (ADA) provides guidance for cutoff [...] Standards of Medical Care in Diabetes 2016, [place] [employer]. Diabetes Care. 2016.39(Suppl 1). Performed By: #### 2 4362-6 ####[facility] LABCLIA [id number] [address] [place] [address] [place] Phosphate [Mass/Vol] 2.7 mg/dL Normal 2.7-4.8 [facility] Comment on above: Order Comment: Speci men Type: BLOOD SPECIMENOrdering Facility: [facility] Address: [address] [place] [address] Performed By: #### 2 4362-6 ####[facility] LABCLIA [id number] [address] [place] [address] [place] Potassium [Moles/Vol] 3.6 mmol/L Low 3.7-5.1 [facility] Comment on above: Order Comment: Speci men Type: BLOOD SPECIMENOrdering Facility: [facility] Address: [address] [place] [address] Performed By: #### 2 4362-6 ####[facility]CLIA [id number] [address] [place] [address] [place] Sodium [Moles/Vol] 143 mmol/L Normal 136-144 [facility] Comment on above: Order Comment: Speci men Type: BLOOD SPECIMENOrdering Facility: [facility] Address: [address] [place] [address] Performed By: #### 2 4362-6 ####[facility] [id number] [address] [place] [address] [place] Urea nitrogen [Mass/Vol] 17 mg/dL Normal 9-24 [facility] Comment on above: Order Comment: Speci men Type: BLOOD SPECIMENOrdering Facility: [facility] Address: [address] [place] [address] Performed By: #### 2 4362-6 ####[facility]CL[facility] [id number] [address] [place] [address] [place] CASE MANAGEMon 09-27-2024 CASE MANAGEM HNO ID: [id number] Author: ADRIANA ALCANTAR, ? Service: ? Author [...] September 27, 2024 TIME: 4:32 PM Normal [facility] CBC panel Auto (Bld)on 09-27 Erythrocyte distribution width (RBC) [Ratio] 12.7 % Normal 11.5-15.0 [facility] Comment on above: Order Comment: Jonas florez Type: BLOOD SPECIMEN Ordering Facility: [facility] Address: [address] [place] [address] Performed By: #### 5 8410-2 #### [facility] CLIA [id number] [address] [place] [address] [place] Hematocrit (Bld) [Volume fraction] 41.8 % Normal 39.0-51.0 [facility] Comment on above: Order Comment: Jonas florez Type: BLOOD SPECIMEN Ordering Facility: [facility] Address: [address] [place] [address] Performed By: #### 5 8410-2 #### [facility] CLIA [id number] [address] [place] [address] [place] Hemoglobin (Bld) [Mass/Vol] 14.4 g/dL Normal 13.0-17.0 [facility] Comment on above: Order Comment: Jonas florez Type: BLOOD SPECIMEN Ordering Facility: [facility] Address: [address] [place] [address] Performed By: #### 5 8410-2 #### [facility] CLIA [id number] [address] [place] [address] [place] MCH (RBC) [Entitic mass] 30.2 pg Normal 26.0-34.0 [facility] Comment on above: Order Comment: Speci men Type: BLOOD SPECIMEN Ordering Facility: [facility] Address: [address] [place] [address] Performed By: #### 5 8410-2 #### [facility] CLIA [id number] [address] [place] [address] [place] MCHC (RBC) [Mass/Vol] 34.4 g/dL Normal 30.5-36.0 [facility] Comment on above: Order Comment: Speci men Type: BLOOD SPECIMEN Ordering Facility: [facility] Address: [address] [place] [address] Performed By: #### 5 8410-2 #### [facility] CLIA [id number] [address] [place] [address] [place] MCV (RBC) [Entitic vol] 87.6 fL Normal 80.0-100.0 [facility] Comment on above: Order Comment: Speci men Type: BLOOD SPECIMEN Ordering Facility: [facility] Address: [address] [place] [address] Performed By: #### 5 8410-2 #### [facility] CLIA [id number] [address] [place] [address] [place] Nucleated RBC (Bld) [#/Vol] 10*3/uL Normal <0.01 [facility] Comment on above: Order Comment: Speci men Type: BLOOD SPECIMEN Ordering Facility: [facility] Address: [address] [place] [address] Performed By: #### 5 8410-2 #### [facility] CLIA [id number] [address] [place] [address] [place] Platelet mean volume (Bld) [Entitic vol] 10.0 fL Normal 9.0-12.7 [facility] Comment on above: Order Comment: Speci men Type: BLOOD SPECIMEN Ordering Facility: [facility] Address: [address] [place] [address] Performed By: #### 5 8410-2 #### [facility] CLIA [id number] [address] [place] [address] [place] Platelets (Bld) [#/Vol] 181 10*3/uL Normal 150-400 [facility] Comment on above: Order Comment: Speci men Type: BLOOD SPECIMEN Ordering Facility: [facility] Address: [address] [place] [address] Performed By: #### 5 8410-2 #### [facility] CLIA [id number] [address] [place] [address] [place] RBC (Bld) [#/Vol] 4.77 10*6/uL Normal 4.20-6.00 [facility] Comment on above: Order Comment: Speci men Type: BLOOD SPECIMEN Ordering Facility: [facility] Address: [address] [place] [address] Performed By: #### 5 8410-2 #### [facility] CLIA [id number] [address] [place] [address] [place] WBC (Bld) [#/Vol] 5.63 10*3/uL Normal 3.70-11.00 [facility] Comment on above: Order Comment: Speci men Type: BLOOD SPECIMEN Ordering Facility: [facility] Address: [address] [place] [address] Performed By: #### 5 8410-2 #### [facility] CLIA [id number] [address] [place] [address] [facility] [place] CONSULT PROGon 09-27-2024 CONSULT PROG HNO ID: [id number] Author: CHARLA GONZALES APRN.POSTAL TRANSPORTATION CLERK Service: Endocrinology Author Type: Nurse Practitioner Type: Consult Progress Note Filed: 09/27/2024 18:00 Note Text: DIABETES CARE TEAM NOTE SERVICE DATE: 09/27/2024 SERVICE TIME: 6:15 AM Subjective Summary of History from Prior Record: Consult Date: 09/23/24 HPI, and DM history and a portion of my Impression and Plan have been copied from AIDEN Peter note on 09/26/24. Today's changes are noted [...] 3AM 09/22/2024 186 09/23/2024 262A2 302A4 255A6 [id number] 172A2 161A2 09/24/2024 170A4+2 246A4+4 [id number] 196A4+2 227A4 185A2 09/25/2024 163A2+5 213A5+4 Tuadfk85 160A5+2 115 132 3/6 148 A5 183 [...] prescribed by primary team Follow up with scrum product owner and site administrator as recommended. [facility] ([facility] or with his home roll up guider operator/PCP in 1-2 weeks after discharge. SIGNATURE: Charla Gonzales APRN- TUCKER Endocrinology Metabolic Insti (more content not included)... Normal [facility] Phenytoin Free SerPl-ncon 09-27-2024 Phenytoin Free [Mass/Vol] 0.5 ug/mL Low 1.0-2.0 [facility] Comment on above: Order Comment: Speci men Type: BLOOD SPECIMEN [facility] Address: [address] [place] [address] Result Comment: Refe rence ranges and high/low indicator flags are provided as general guidelines only. The treating physician must determine appropriate target levels/dosing based on the specific clinical situation. Performed By: #### 5 8410-2 #### [facility] CLIA [id number] [address] [place] [address] [place] Renal function 2000 panelon 09-27-2024 Albumin [Mass/Vol] 3.7 g/dL Low 3.9-4.9 [facility] Comment on above: Order Comment: Speci men Type: BLOOD SPECIMEN Ordering Facility: [facility] Address: [address] [place] [address] Performed By: #### 5 8410-2 #### [facility] CLIA [id number] [address] [place] [address] [place] Anion gap [Moles/Vol] 10 mmol/L Normal 8-15 [facility] Comment on above: Order Comment: Speci men Type: BLOOD SPECIMEN Ordering Facility: [facility] Address: [address] [place] [address] Performed By: #### 5 8410-2 #### [facility] CLIA [id number] [address] [place] [address] [place] Calcium [Mass/Vol] 8.9 mg/dL Normal 8.5-10.2 [facility] Comment on above: Order Comment: Speci men Type: BLOOD SPECIMEN Ordering Facility: [facility] Address: [address] [place] [address] Performed By: #### 5 8410-2 #### [facility] CLIA [id number] [address] [place] [address] [place] Chloride [Moles/Vol] 106 mmol/L Normal 98-107 [facility] Comment on above: Order Comment: Speci men Type: BLOOD SPECIMEN Ordering Facility: [facility] Address: [address] [place] [address] Performed By: #### 5 8410-2 #### [facility] CLIA [id number] [address] [place] [address] [place] CO2 [Moles/Vol] 24 mmol/L Normal 22-30 [facility] Comment on above: Order Comment: Speci men Type: BLOOD SPECIMEN Ordering Facility: [facility] Address: [address] [place] [address] Performed By: #### 5 8410-2 #### [facility] CLIA [id number] [address] [place] [address] [place] Creatinine [Mass/Vol] 0.94 mg/dL Normal 0.73-1.22 [facility] Comment on above: Order Comment: Jonas vikki Type: BLOOD SPECIMEN Ordering Facility: [facility] Address: [address] [place] [address] Performed By: #### 5 8410-2 #### [facility] CLIA [id number] [address] [place] [address] [place] Creatinine and Glomerular filtration rate.predicted panel (S/P/Bld) 94 mL/min/1.73m??? Normal >=60 [facility] Comment on above: Order Comment: Jonas florez Type: BLOOD SPECIMEN Ordering Facility: [facility] Address: [address] [place] [address] Result Comment: Bianca mated Glomerular Filtration Rate [...] accurately reflect actual GFR. Performed By: #### 5 8410-2 #### [facility] CLIA [id number] [address] [place] [address] [place] Glucose [Mass/Vol] 134 mg/dL High 74-99 [facility] Comment on above: Order Comment: Jonas vikki Type: BLOOD SPECIMEN Ordering Facility: [facility] Address: [address] [place] [address] Result Comment: The [place] [employer] (ADA) provides guidance for cutoff [...] Standards of Medical Care in Diabetes 2016, [place] [employer]. Diabetes Care. 2016.39(Suppl 1). Performed By: #### 5 8410-2 #### [facility] CLIA [id number] [address] [place] [address] [place] Phosphate [Mass/Vol] 3.1 mg/dL Normal 2.7-4.8 [facility] Comment on above: Order Comment: Speci men Type: BLOOD SPECIMEN Ordering Facility: [facility] Address: [address] [place] [address] Performed By: #### 5 8410-2 #### [facility] CLIA [id number] [address] [place] [address] [place] Potassium [Moles/Vol] 3.8 mmol/L Normal 3.7-5.1 [facility] Comment on above: Order Comment: Speci men Type: BLOOD SPECIMEN Ordering Facility: [facility] Address: [address] [place] [address] Performed By: #### 5 8410-2 #### [facility] CLIA [id number] [address] [place] [address] [place] Sodium [Moles/Vol] 140 mmol/L Normal 136-144 [facility] Comment on above: Order Comment: Speci men Type: BLOOD SPECIMEN Ordering Facility: [facility] Address: [address] [place] [address] Performed By: #### 5 8410-2 #### [facility] CLIA [id number] [address] [place] [address] [place] Urea nitrogen [Mass/Vol] 16 mg/dL Normal 9-24 [facility] Comment on above: Order Comment: Speci men Type: BLOOD SPECIMEN Ordering Facility: [facility] Address: [address] [place] [address] Performed By: #### 5 8410-2 #### [facility] CLIA [id number] [address] [place] [address] [place] CBC panel Auto (Bld)on 09-26 Erythrocyte distribution width (RBC) [Ratio] 12.7 % Normal 11.5-15.0 [facility] Comment on above: Order Comment: Speci men Type: BLOOD SPECIMEN Ordering Facility: [facility] Address: [address] [place] [address] Performed By: #### 5 8410-2 #### [facility] CLIA [id number] [address] Hematocrit (Bld) [Volume fraction] 42.9 % Normal 39.0-51.0 [facility] Comment on above: Order Comment: Speci men Type: BLOOD SPECIMEN Ordering Facility: [facility] Address: [address] [place] [address] Performed By: #### 5 8410-2 #### [facility] CLIA [id number] [address] [place] Hemoglobin (Bld) [Mass/Vol] 15.1 g/dL Normal 13.0-17.0 [facility] Comment on above: Order Comment: Speci men Type: BLOOD SPECIMEN Ordering Facility: [facility] Address: [address] [place] [address] Performed By: #### 5 8410-2 #### [facility] CLIA [id number] [address] [place] [address] [place] MCH (RBC) [Entitic mass] 30.6 pg Normal 26.0-34.0 [facility] Comment on above: Order Comment: Speci men Type: BLOOD SPECIMEN Ordering Facility: [facility] Address: [address] [place] [address] Performed By: #### 5 8410-2 #### [facility] CLIA [id number] [address] [place] MCHC (RBC) [Mass/Vol] 35.2 g/dL Normal 30.5-36.0 [facility] Comment on above: Order Comment: Speci men Type: BLOOD SPECIMEN Ordering Facility: [facility] Address: [address] [place] [address] Performed By: #### 5 8410-2 #### [facility] CLIA [id number] [address] [place] MCV (RBC) [Entitic vol] 87.0 fL Normal 80.0-100.0 [facility] Comment on above: Order Comment: Speci men Type: BLOOD SPECIMEN Ordering Facility: [facility] Address: [address] [place] [address] Performed By: #### 5 8410-2 #### [facility] CLIA [id number] [address] [place] [address] [place] Nucleated RBC (Bld) [#/Vol] 10*3/uL Normal <0.01 [facility] Comment on above: Order Comment: Speci men Type: BLOOD SPECIMEN Ordering Facility: [facility] Address: [address] [place] [address] Performed By: #### 5 8410-2 #### [facility] CLIA [id number] [address] [place] [address] [place] Platelet mean volume (Bld) [Entitic vol] 9.6 fL Normal 9.0-12.7 [facility] Comment on above: Order Comment: Speci men Type: BLOOD SPECIMEN Ordering Facility: [facility] Address: [address] [place] [address] Performed By: #### 5 8410-2 #### [facility] CLIA [id number] [address] [place] [address] [place] Platelets (Bld) [#/Vol] 191 10*3/uL Normal 150-400 [facility] Comment on above: Order Comment: Speci men Type: BLOOD SPECIMEN Ordering Facility: [facility] Address: [address] [place] [address] Performed By: #### 5 8410-2 #### [facility] CLIA [id number] [address] [place] [address] [place] RBC (Bld) [#/Vol] 4.93 10*6/uL Normal 4.20-6.00 [facility] Comment on above: Order Comment: Speci men Type: BLOOD SPECIMEN Ordering Facility: [facility] Address: [address] [place] [address] Performed By: #### 5 8410-2 #### [facility] CLIA [id number] [address] [place] [id number] [place] WBC (Bld) [#/Vol] 6.55 10*3/uL Normal 3.70-11.00 [facility] Comment on above: Order Comment: Speci men Type: BLOOD SPECIMEN [facility] Address: [address] [place] [address] Performed By: #### 5 8410-2 #### [facility] CLIA [id number] [address] [place] [address] [place] CONSULT PROGon 09-26-2024 CONSULT PROG HNO ID: [id number] Author: CHARLA GONZALES APRN.POSTAL TRANSPORTATION CLERK Service: Endocrinology Author Type: Nurse Practitioner Type: [...] 3AM 09/22/2024 186 09/23/2024 262A2 302A4 255A6 [id number] 172A2 161A2 09/24/2024 170A4+2 246A4+4 Wyooks38 196A4+2 227A4 185A2 09/25/2024 163A2+5 213A5+4 Ygjfxm28 160A5+2 115 132 09/26 148 A5 183 [...] prescribed by primary team Follow up with scrum product owner and site administrator as recommended. [facility] ([facility] or with his home roll up guider operator/PCP in 1-2 weeks after discharge. SIGNATURE: Charla Gonzales APRN- POSTAL TRANSPORTATION CLERK Endocrinology Metabolic [place] Pager [phone] Inpatient Endo COGENERATION OPERATOR from 0800 to 1800 After [address] [place] [phone] PATIENT NAME: Evangelista Borrego JR DATE: September 26, 2024 (more content not included)... Normal [facility] Renal function 2000 panelon 09-26-2024 Albumin [Mass/Vol] 3.7 g/dL Low 3.9-4.9 [facility] Comment on above: Order Comment: Speci men Type: BLOOD SPECIMEN Ordering Facility: [facility] Address: [address] [place] [address] Performed By: #### 5 8410-2 #### [facility] CLIA [id number] [address] [place] [address] [place] Anion gap [Moles/Vol] 14 mmol/L Normal 8-15 [facility] Comment on above: Order Comment: Speci men Type: BLOOD SPECIMEN Ordering Facility: [facility] Address: [address] [place] [address] Performed By: #### 5 8410-2 #### [facility] CLIA [id number] [address] [place] [address] [place] Calcium [Mass/Vol] 9.3 mg/dL Normal 8.5-10.2 [facility] Comment on above: Order Comment: Speci men Type: BLOOD SPECIMEN Ordering Facility: [facility] Address: [address] [place] [address] Performed By: #### 5 8410-2 #### [facility] CLIA [id number] [address] [place] [address] [place] Chloride [Moles/Vol] 104 mmol/L Normal 98-107 [facility] Comment on above: Order Comment: Speci men Type: BLOOD SPECIMEN Ordering Facility: [facility] Address: [address] [place] [address] Performed By: #### 5 8410-2 #### [facility] CLIA [id number] [address] [place] [address] [place] CO2 [Moles/Vol] 23 mmol/L Normal 22-30 [facility] Comment on above: Order Comment: Speci men Type: BLOOD SPECIMEN Ordering Facility: [facility] Address: [address] [place] [address] Performed By: #### 5 8410-2 #### [facility] CLIA [id number] [address] [place] [address] [place] Creatinine [Mass/Vol] 1.01 mg/dL Normal 0.73-1.22 [facility] Comment on above: Order Comment: Jonas florez Type: BLOOD SPECIMEN Ordering Facility: [facility] Address: [address] [place] [address] Performed By: #### 5 8410-2 #### [facility] CLIA [id number] [address] OF [facility] Creatinine and Glomerular filtration rate.predicted panel (S/P/Bld) 86 mL/min/1.73m??? Normal >=60 [facility] Comment on above: Order Comment: Jonas florez Type: BLOOD SPECIMEN Ordering Facility: [facility] Address: [address] [place] [address] Result Comment: Bianca mated Glomerular Filtration Rate [...] accurately reflect actual GFR. Performed By: #### 5 8410-2 #### [facility] CLIA [id number] [address] [place] [address] [place] Glucose [Mass/Vol] 137 mg/dL High 74-99 [facility] Comment on above: Order Comment: Jonas florez Type: BLOOD SPECIMEN Ordering Facility: [facility] Address: [address] [place] [address] Result Comment: The [place] [employer] (ADA) provides guidance for cutoff [...] Standards of Medical Care in Diabetes 2016, [place] [employer]. Diabetes Care. 2016.39(Suppl 1). Performed By: #### 5 8410-2 #### [facility] CLIA [id number] [address] [place] [address] [place] Phosphate [Mass/Vol] 3.9 mg/dL Normal 2.7-4.8 [facility] Comment on above: Order Comment: Speci men Type: BLOOD SPECIMEN Ordering Facility: [facility] Address: [address] [place] [address] Performed By: #### 5 8410-2 #### [facility] CLIA [id number] [address] [place] [address] [place] Potassium [Moles/Vol] 3.8 mmol/L Normal 3.7-5.1 [facility] Comment on above: Order Comment: Speci men Type: BLOOD SPECIMEN Ordering Facility: [facility] Address: [address] [place] [address] Performed By: #### 5 8410-2 #### [facility] CLIA [id number] [address] [place] [address] [place] Sodium [Moles/Vol] 141 mmol/L Normal 136-144 [facility] Comment on above: Order Comment: Speci men Type: BLOOD SPECIMEN Ordering Facility: [facility] Address: [address] [place] [address] Performed By: #### 5 8410-2 #### [facility] CLIA [id number] [address] [place] [address] [place] Urea nitrogen [Mass/Vol] 16 mg/dL Normal 9-24 [facility] Comment on above: Order Comment: Speci men Type: BLOOD SPECIMEN Ordering Facility: [facility] Address: [address] [place] [address] Performed By: #### 5 8410-2 #### [facility] CLIA [id number] [address] [place] [address] [place] Urinalysis complete panel (U )on 09-26-2024 Bacteria LM.HPF (Urine sed) [#/Area] Negative Normal Negative [facility] Comment on above: Order Comment: Speci men Type: URINE SPECIMENOrdering Facility: [facility] Address: [address] [place] [address] Performed By: #### 2 4356-8 ####[facility] [id number] [place] [address] [place] Bilirubin Ql (U) 1+ Abnormal Negative [facility] Comment on above: Order Comment: Speci men Type: URINE SPECIMENOrdering Facility: [facility] Address: [address] [place] [address] Result Comment: Sugg est correlation with clinical findings and serum bilirubin if clinically indicated. Performed By: #### 2 4356-8 ####[facility] [id number] [place] [address] [place] Clarity (Unsp spec) Clear Normal Clear [facility] Comment on above: Order Comment: Speci men Type: URINE SPECIMENOrdering Facility: [facility] Address: [address] [place] [address] Performed By: #### 2 4356-8 ####[facility] [id number] [place] [address] [place] Color (U) Dark Yellow Abnormal Yellow [facility] Comment on above: Order Comment: Speci men Type: URINE SPECIMENOrdering Facility: [facility] Address: [address] [place] [address] Performed By: #### 2 4356-8 ####[facility] [id number] [place] [id number] [place] Epithelial cells LM.HPF (Urine sed) [#/Area] None Seen Normal [facility] Comment on above: Order Comment: Speci men Type: URINE SPECIMENOrdering Facility: [facility] Address: [address] [place] [address] Performed By: #### 2 4356-8 ####[facility] [id number] [address] [place] [address] [place] Glucose Test strip (U) [Mass/Vol] Trace Abnormal Negative [facility] Comment on above: Order Comment: Speci men Type: URINE SPECIMENOrdering Facility: [facility] Address: [address] [place] [address] Performed By: #### 2 4356-8 ####[facility] [id number] [address], [facility] [place] Hemoglobin Ql (U) Negative Normal Negative [facility] Comment on above: Order Comment: Speci men Type: URINE SPECIMENOrdering Facility: [facility] Address: [address] [place] [address] Performed By: #### 2 4356-8 ####[facility] [id number] [place] [address] [place] Hyaline casts (Urine sed) [#/Area] 4-10 /LPF Abnormal 0 /LPF [facility] Comment on above: Order Comment: Speci men Type: URINE SPECIMENOrdering Facility: [facility] Address: [address] [place] [address] Performed By: #### 2 4356-8 ####[facility] [id number] [address], [facility] [place] Ketones Ql (U) Trace Abnormal Negative [facility] Comment on above: Order Comment: Speci men Type: URINE SPECIMENOrdering Facility: [facility] Address: [address] [place] [address] Performed By: #### 2 4356-8 ####[facility] [id number] [place] [id number] [place] Leukocyte esterase Test strip Ql (U) Negative Normal Negative [facility] Comment on above: Order Comment: Speci men Type: URINE SPECIMENOrdering Facility: [facility] Address: [address] [place] [address] Performed By: #### 2 4356-8 ####[facility] LAB[facility] [id number] [place] [address] [place] Nitrite Ql (U) Negative Normal Negative [facility] Comment on above: Order Comment: Speci men Type: URINE SPECIMENOrdering Facility: [facility] Address: [address] [place] [address] Performed By: #### 2 4356-8 ####[facility] LABCLIA [id number] [place] [address] [place] pH (U) 6.5 [pH] Normal <8.5 [facility] Comment on above: Order Comment: Speci men Type: URINE SPECIMENOrdering Facility: [facility] Address: [address] [place] [address] Performed By: #### 2 4356-8 ####[facility] LABIA [id number] [place] [address] [place] Protein (U) [Mass/Vol] 2+ Abnormal Negative Cl [facility] Comment on above: Order Comment: Speci men Type: URINE SPECIMENOrdering Facility: [facility] Address: [address] [place] [address] Performed By: #### 2 4356-8 ####[facility] LABIA [id number] [place] [address] [place] RBC LM.HPF (Urine sed) [#/Area] 0-2 /HPF Normal 0-2 /HPF [facility] Comment on above: Order Comment: Speci men Type: URINE SPECIMENOrdering Facility: [facility] Address: [address] [place] [address] Performed By: #### 2 4356-8 ####[facility] LABIA [id number] [place] [id number] [place] Specific gravity (U) [Rel density] 1.035 High 1.005-1.030 [facility] Comment on above: Order Comment: Speci men Type: URINE SPECIMENOrdering Facility: [facility] Address: [address] [place] [address] Performed By: #### 2 4356-8 ####[facility] LABIA [id number] [place] [address] [place] Urobilinogen Ql (U) 1.0 EU/dL Normal 0.2-1.0 EU/dL [facility] Comment on above: Order Comment: Speci men Type: URINE SPECIMENOrdering Facility: [facility] Address: [address] [place] [address] Performed By: #### 2 4356-8 ####[facility] [id number] [place] [address] [place] WBC LM.HPF (Urine sed) [#/Area] 0-5 /HPF Normal 0-5 /HPF [facility] Comment on above: Order Comment: Speci men Type: URINE SPECIMENOrdering Facility: [facility] Address: [address] [place] [address] Performed By: #### 2 4356-8 ####[facility] [id number] [place] [address] [place] CBC panel Auto (Bld)on 09-25 Erythrocyte distribution width (RBC) [Ratio] 12.8 % Normal 11.5-15.0 [facility] Comment on above: Order Comment: Speci men Type: BLOOD SPECIMENOrdering Facility: [facility] Address: [address] [place] [address] Performed By: #### 5 8410-2 ####[facility] [id number] [place] [address] [place] Hematocrit (Bld) [Volume fraction] 41.0 % Normal 39.0-51.0 [facility] Comment on above: Order Comment: Speci men Type: BLOOD SPECIMENOrdering Facility: [facility] Address: [address] [place] [address] Performed By: #### 5 8410-2 ####[facility] LABIA [id number] [place] [address] [place] Hemoglobin (Bld) [Mass/Vol] 14.7 g/dL Normal 13.0-17.0 [facility] Comment on above: Order Comment: Speci men Type: BLOOD SPECIMENOrdering Facility: [facility] Address: [address] [place] [address] Performed By: #### 5 8410-2 ####[facility] LABIA [id number] [place] [address] [place] MCH (RBC) [Entitic mass] 30.3 pg Normal 26.0-34.0 [facility] Comment on above: Order Comment: Speci men Type: BLOOD SPECIMENOrdering Facility: [facility] Address: [address] [place] [address] Performed By: #### 5 8410-2 ####[facility] [id number] [place] [address] [place] MCHC (RBC) [Mass/Vol] 35.9 g/dL Normal 30.5-36.0 [facility] Comment on above: Order Comment: Speci men Type: BLOOD SPECIMENOrdering Facility: [facility] Address: [address] [place] [address] Performed By: #### 5 8410-2 ####[facility] LABIA [id number] [place] [address] [place] MCV (RBC) [Entitic vol] 84.5 fL Normal 80.0-100.0 [facility] Comment on above: Order Comment: Speci men Type: BLOOD SPECIMENOrdering Facility: [facility] Address: [address] [place] [address] Performed By: #### 5 8410-2 ####[facility] [id number] [place] [address] [place] Nucleated RBC (Bld) [#/Vol] 10*3/uL Normal <0.01 [facility] Comment on above: Order Comment: Speci men Type: BLOOD SPECIMENOrdering Facility: [facility] Address: [address] [place] [address] Performed By: #### 5 8410-2 ####[facility]CLIA [id number] [place] [address] [place] Platelet mean volume (Bld) [Entitic vol] 9.7 fL Normal 9.0-12.7 [facility] Comment on above: Order Comment: Speci men Type: BLOOD SPECIMENOrdering Facility: [facility] Address: [address] [place] [address] Performed By: #### 5 8410-2 ####[facility]CLIA [id number] [place] [address] [place] Platelets (Bld) [#/Vol] 208 10*3/uL Normal 150-400 [facility] Comment on above: Order Comment: Speci men Type: BLOOD SPECIMENOrdering Facility: [facility] Address: [address] [place] [address] Performed By: #### 5 8410-2 ####[facility]CLIA [id number] [place] [address] [place] RBC (Bld) [#/Vol] 4.85 10*6/uL Normal 4.20-6.00 [facility] Comment on above: Order Comment: Speci men Type: BLOOD SPECIMENOrdering Facility: [facility] Address: [address] [place] [address] Performed By: #### 5 8410-2 ####[facility] LABCLIA [id number] [place] [id number] [place] WBC (Bld) [#/Vol] 6.63 10*3/uL Normal 3.70-11.00 [facility] Comment on above: Order Comment: Speci men Type: BLOOD SPECIMENOrdering Facility: [facility] Address: [address] [place] [address] Performed By: #### 5 8410-2 ####[facility] LABCLIA [id number] FRANK COLMENARES [address] CNDSon 09-25-2024 CNDS HNO ID: [id number] Author: FABIANA DUNAWAY MD, PhD Service: Neurology [...] 6 Final/Discharge NIHSS Score: 19 Final/Discharge Modified [place] Score: 4 - Moderately severe disability - [...] encephalomalacia CTA head and neck 09/22/2024: Left RENT COLLECTOR P1 occlusion with distal recanalization MRI brain [...] initial HANDP written [facility] patient was admitted: Mr. Evangelista Borrego is a 59 yo male with a PMH significant for T2DM, LYLE, HLD, seiz (more content not included)... Normal [facility] CONSULT PROGon 09-25-2024 CONSULT PROG HNO ID: [id number] Author: ROSALIE LANDERS APRN.TUCKER Service: Endocrinology Author [...] 3AM 09/22/2024 186 09/23/2024 262A2 302A4 255A6 [id number] 172A2 161A2 09/24/2024 170A4+2 246A4+4 Hfyhth45 196A4+2 227A4 185A2 09/25/2024 163A2+5 213A5+4 Jmkczo93 160A5+2 Diabetes Management Prior to the Consultation/HPI: Scale #1 AC only Other Pertinent Medications: Continuous Infusion: none Steroids: none Diet: Soft bite sized(L6) mildly thick (L2) nectar Tube Feeding: No Supplements: none Impression/Recommend ations Patient with poorly controlled Diabetes Mellitus Type 2 hyperglycemia s/p stroke whom we have been consulted for glycemic control. Blood Glucose and Labs Reviewed, [id number]. Po intake fair BG high. Will increase [...] prescribed by primary team Follow up with scrum product owner and site administrator as recommended. Patient will need [facility] (X-[facility]) or with his home roll up guider operator/PCP in 1-2 weeks after discharge. SIGNATURE: Rosalie Landers APRN.POSTAL TRANSPORTATION CLERK PATIENT NAME: Evangelista Borrego JR DATE: September 25, 2024 TIME: 7:04 AM PAGER: Inpatient Endo COGENERATION OPERATOR fr (more content not included)... Normal [facility] Phenytoin Free SerPl-mCncon 09-25-2024 Phenytoin Free [Mass/Vol] <0.4 Low 1.0-2.0 [facility] Comment on above: Order Comment: Jonas florez Type: BLOOD SPECIMEN Ordering Facility: [facility] Address: [address] [place] [address] Result Comment: Refe rence ranges and high/low indicator flags are provided as general guidelines only. The treating physician must determine appropriate target levels/dosing based on the specific clinical situation. Result rechecked. Performed By: #### 5 8410-2 #### [facility] CLIA [id number] [address] [place] [address] [place] Renal function 2000 panelon 09-25-2024 Albumin [Mass/Vol] 3.9 g/dL Normal 3.9-4.9 [facility] Comment on above: Order Comment: Jonas florez Type: BLOOD SPECIMENOrdering Facility: [facility] Address: [address] [facility] [place] [address] Performed By: #### 2 4362-6 ####[facility] LABCLIA [id number] [place] [address] [place] Anion gap [Moles/Vol] 12 mmol/L Normal 8-15 [facility] Comment on above: Order Comment: Speci men Type: BLOOD SPECIMENOrdering Facility: [facility] Address: [address] [place], [place] [address] Performed By: #### 2 4362-6 ####[facility] LABCLIA [id number] [facility]ENTERLID AVENUEST. VINCENT MEDICAL CENTERK [address] [place] [address] [place] Calcium [Mass/Vol] 9.5 mg/dL Normal 8.5-10.2 [facility] Comment on above: Order Comment: Speci men Type: BLOOD SPECIMENOrdering Facility: [facility] Address: [address] [place] [address] Performed By: #### 2 4362-6 ####[facility] LABCLIA [id number] [facility] CENTERLID AVENUEST. VINCENT MEDICAL CENTERK [address] [place] [address] [place] Chloride [Moles/Vol] 102 mmol/L Normal 98-107 [facility] Comment on above: Order Comment: Speci men Type: BLOOD SPECIMENOrdering Facility: [facility] Address: [address] [place], [place] [address] Performed By: #### 2 4362-6 ####[facility] LABCLIA [id number] [facility] [address] [address] [place] CO2 [Moles/Vol] 25 mmol/L Normal 22-30 [facility] Comment on above: Order Comment: Speci men Type: BLOOD SPECIMENOrdering Facility: [facility] Address: [address] [place], [place] [address] Performed By: #### 2 4362-6 ####[facility] LABCLIA [id number] [facility] [address] [address] [place] Creatinine [Mass/Vol] 0.92 mg/dL Normal 0.73-1.22 [facility] Comment on above: Order Comment: Speci men Type: BLOOD SPECIMENOrdering Facility: [facility] Address: [address] [place], [place] [address] Performed By: #### 2 4362-6 ####[facility]CL[facility] [id number] [place] [address] [place] Creatinine and Glomerular filtration rate.predicted panel (S/P/Bld) 96 mL/min/1.73m??? Normal >=60 [facility] Comment on above: Order Comment: Speci vikki Type: BLOOD SPECIMENOrdering Facility: [facility] Address: [address] [place] [address] Result Comment: Bianca mated Glomerular Filtration Rate [...] actual GFR. Performed By: #### 2 4362-6 ####[facility] LABIA [id number] [place] [address] [place] Glucose [Mass/Vol] 168 mg/dL High 74-99 [facility] Comment on above: Order Comment: Jonas florez Type: BLOOD SPECIMENOrdering Facility: [facility] Address: [address] [place] [address] Result Comment: The [place] Diabetes Association (ADA) provides guidance for cutoff [...] Standards of Medical Care in Diabetes 2016, [place] Diabetes Association. Diabetes Care. 2016.39(Suppl 1). Performed By: #### 2 4362-6 ####[facility] LABIA [id number] [place] [id number] [place] Phosphate [Mass/Vol] 4.0 mg/dL Normal 2.7-4.8 [facility] Comment on above: Order Comment: Speci men Type: BLOOD SPECIMENOrdering Facility: [facility] Address: [address] [place] [address] Performed By: #### 2 4362-6 ####[facility] LABCLIA [id number] [place] [address] [place] Potassium [Moles/Vol] 3.7 mmol/L Normal 3.7-5.1 [facility] Comment on above: Order Comment: Speci men Type: BLOOD SPECIMENOrdering Facility: [facility] Address: [address] [place] [address] Performed By: #### 2 4362-6 ####[facility] LABIA [id number] [place] [address] [place] Sodium [Moles/Vol] 139 mmol/L Normal 136-144 [facility] Comment on above: Order Comment: Speci men Type: BLOOD SPECIMENOrdering Facility: [facility] Address: [address] [place] [address] Performed By: #### 2 4362-6 ####[facility] LABCLIA [id number] [place] [address] [place] Urea nitrogen [Mass/Vol] 14 mg/dL Normal 9-24 [facility] Comment on above: Order Comment: Speci men Type: BLOOD SPECIMENOrdering Facility: [facility] Address: [address] [place] [address] Performed By: #### 2 4362-6 ####[facility] LABIA [id number] [place] [id number] [place] THERAPY NTon 09-25-2024 THERAPY NT HNO ID: [id number] Author: JOSE ROSS CCC-EDGER OPERATOR Service: Speech/Swallow Author Type: Speech Language Pathologist Type: Therapy (PT/OT/Speech/Resp) Filed: 09/25/2024 17:06 Note Text: Speech Pathology A f/u dysphagia and speech-language visit was attempted this p.m. The pt was sleeping soundly at this time. Will defer visit until tomorrow to optimize pt ability to fully participate. EDGER OPERATOR discussed this with the pt's RN. Jose Ross M.A., [facility]/EDGER OPERATOR Speech Language Pathologist [id number] Normal [facility] NT HNO ID: [id number] Author: AELXIA VALENTE, PT Service: Physical Therapy Author Type: Physical Therapist Type: Therapy (PT/OT/Speech/Resp) Filed: 09/25/2024 15:13 Note Text: Physical Therapy Treatment Summary SERVICE DATE: 09/25/2024 SERVICE TIME: 1212 to 1315 ROOM: [place] [address] PT 6 Clicks Score: 11 DISCHARGE RECOMMENDATIONS [...] gait and mobility-other TREATMENT INTERVENTIONS Therapeutic Activity (99867), Neuromuscular Reeducation (25330), Therapeutic Exercise (07601) Timed Code Treatment (minutes): 63 Skilled Treatment [...] September 25, 2024 TIME: 3:13 PM Normal [facility] THERAPY NT HNO ID: [id number] Author: USHA PELAYO, OT/L Service: Occupational Therapy Author Type: Occupational Therapist Type: Therapy (PT/OT/Speech/Resp) Filed: 09/25/2024 15:40 Note Text: Occupational Therapy Treatment Summary SERVICE DATE: 09/25/2024 SERVICE TIME: 845 to 945 ROOM: [place] [address] OT 6 Clicks Score: 14 DISCHARGE RECOMMENDATIONS [...] Lack of coordination-other TREATMENT INTERVENTIONS Cognitive Training (63764 and 47465), Neuromuscular Reeducation (31706), Self Custodial Management (81785) Timed Code Treatment (minutes): 60 Skilled Treatment Time (minutes): 60 TRAINING AND EDUCATION PROVIDED Activity Adaptation/Compensat ory Strategies, Bed Mobility, Benefits of In-Hospital Mobility, Cognitive Prosthetics, Command Following, Delirium Reduction Techniques, Expected Functional Level, Feeding Tasks, Grooming Tasks, Memory/Attention, Orientation, Patient Exercise/Therapy Program Support Needs, Positioning, Role of Occupational Therapy, Sitting Balance to Improve [place] with ADLs/Self-Care, Standing Balance to Improve [place] with ADLs/Self-Care, Transfer - Sit to Stand, Transfer - Bed to Chair, Visual Scanning/Attention Activities THERAPEUTIC SKILLS USED Activity Dosing, Assessment of Tolerance Including Vitals Response to Activity, Bed in Chair Position, Cues for Sequencing/Proper Technique for Activity, Cuing Tactile, Cuing Verbal, Cuing Visual, Contra-lateral Facilitation, Management of Critical Lines, Tubes and/or Drains, Physical Dwayne (more content not included)... Normal [facility] CBC panel Auto (Bld)on 09-24 Erythrocyte distribution width (RBC) [Ratio] 12.8 % Normal 11.5-15.0 [facility] Comment on above: Order Comment: Speci men Type: BLOOD SPECIMEN [facility] Address: [address] [place] [address] Performed By: #### 5 8410-2 #### [facility] CLIA [id number] [address] [place] [address] [place] Hematocrit (Bld) [Volume fraction] 41.9 % Normal 39.0-51.0 [facility] Comment on above: Order Comment: Speci men Type: BLOOD SPECIMEN [facility] Address: [address] [place] [address] Performed By: #### 5 8410-2 #### [facility] CLIA [id number] [address] [place] [address] [place] Hemoglobin (Bld) [Mass/Vol] 15.1 g/dL Normal 13.0-17.0 [facility] Comment on above: Order Comment: Speci men Type: BLOOD SPECIMEN [facility] Address: [address] [place] [address] Performed By: #### 5 8410-2 #### [facility] CLIA [id number] [address] [place] [address] [place] MCH (RBC) [Entitic mass] 30.8 pg Normal 26.0-34.0 [facility] Comment on above: Order Comment: Speci men Type: BLOOD SPECIMEN [facility] Address: [address] [place] [address] Performed By: #### 5 8410-2 #### [facility] CLIA [id number] [address] [place] [address] [place] MCHC (RBC) [Mass/Vol] 36.0 g/dL Normal 30.5-36.0 [facility] Comment on above: Order Comment: Speci men Type: BLOOD SPECIMEN [facility] Address: [address] [place] [address] Performed By: #### 5 8410-2 #### [facility] CLIA [id number] [address] [place] [address] [place] MCV (RBC) [Entitic vol] 85.5 fL Normal 80.0-100.0 [facility] Comment on above: Order Comment: Speci men Type: BLOOD SPECIMEN [facility] Address: [address] [place] [address] Performed By: #### 5 8410-2 #### [facility] CLIA [id number] [address] [place] [address] [place] Nucleated RBC (Bld) [#/Vol] 10*3/uL Normal <0.01 [facility] Comment on above: Order Comment: Speci men Type: BLOOD SPECIMEN [facility] Address: [address] [place] [address] Performed By: #### 5 8410-2 #### [facility] CLIA [id number] [address] [place] [address] [place] Platelet mean volume (Bld) [Entitic vol] 10.1 fL Normal 9.0-12.7 [facility] Comment on above: Order Comment: Speci men Type: BLOOD SPECIMEN [facility] Address: [address] [place] [address] Performed By: #### 5 8410-2 #### [facility] CLIA [id number] [address] [place] [address] [place] Platelets (Bld) [#/Vol] 233 10*3/uL Normal 150-400 [facility] Comment on above: Order Comment: Speci men Type: BLOOD SPECIMEN [facility] Address: [address] [place] [address] Performed By: #### 5 8410-2 #### [facility] CLIA [id number] [address] [place] [address] [place] RBC (Bld) [#/Vol] 4.90 10*6/uL Normal 4.20-6.00 [facility] Comment on above: Order Comment: Speci men Type: BLOOD SPECIMEN [facility] Address: [address] [place] [address] Performed By: #### 5 8410-2 #### [facility] CLIA [id number] [address] [place] [address] [place] WBC (Bld) [#/Vol] 6.31 10*3/uL Normal 3.70-11.00 [facility] Comment on above: Order Comment: Speci men Type: BLOOD SPECIMEN [facility] Address: [address] [place] [address] Performed By: #### 5 8410-2 #### [facility] CLIA [id number] [address] [place] [address] [place] CONSULTon 09-24-2024 CONSULT HNO ID: [id number] Author: NUSRAT GOTTLIEB PA-C Service: Physical Medicine AND Rehabilitation Author Type: Physician Liner Helper Type: Consults Filed: 09/24/2024 10:40 Note Text: HOSPITAL INITIAL CONSULT: PMANDR SERVICE DATE: 09/24/2024 SERVICE TIME: 9:49 AM REASON FOR CONSULTATION: assessment of rehab service needs and PMANDR Consult Order in patient's chart: Yes, order in chart under separate note Subjective PATIENT'S HOME ADDRESS: [address] [place] [address] HISTORY: Evangelista Borrego JR is a 59 year old male whose current [facility] admission dates to 09/22/2024. History notes that he was admitted on that date from outside hospital. Mr. Vanessa HIDALGO is being seen at the request of Dr. Dunaway, the acute hospital physician of record. He carries the rehabilitation diagnosis of stroke. HPI/CHIEF COMPLAINT: Current location: H063 001/H063-01 Parts of this note may have been copied (in italics) and I have reviewed and edited/updated from a combination of HANDP, progress notes from primary service and/or consulting services notes via chart review: Mr. Evangelista Borrego is a 59 yo male with a PMH significant for T2DM, LYLE, HLD, seizures on phenytoin who presented with RHP and dysarthria to [facility] ED on 09/22. LKW 9PM 09/21. He was found to have a left P1 occlusion of unknown chronicity and encephalomalacia in left paramedian occipital lobe on imaging. Transferred to [facility] SDU for further workup and [...] ARTHROSCOPIC PROCEDURE ANKLE AND FOOT COLONOSCOPY Dr. Omer [facility] NEUROPLASTY AND/TRANSPOS MEDIAN NRV CARPAL TUNNE [...] Skin: Ra (more content not included)... Normal [facility] CONSULT PROGon 09-24-2024 CONSULT PROG HNO ID: [id number] Author: ROSALIE LANDERS APRN.TUCKER Service: Endocrinology Author [...] 3AM 09/22/2024 186 09/23/2024 262A2 302A4 255A6 [id number] 172A2 161A2 09/24/2024 170A4+2 246A4+4 Sttzhs13 196A4+2 Diabetes Management Prior to the Consultation/HPI: [...] 09/23 DM DISCHARGE PLAN:AR as of 09/23 MDI insulin and oral TBD. Check blood sugars Three times a Day Diet: As per Unit Dietitian Exercise as prescribed by primary team Follow up with scrum product owner and site administrator as recommended. Patient will [facility] (X-[facility]) or with his home roll up guider operator/PCP in 1-2 weeks after discharge. SIGNATURE: Rosalie Landers APRN.POSTAL TRANSPORTATION CLERK PATIENT NAME: Evangelista Borrego JR DATE: September 24, 2024 TIME: 6:38 AM PAGER: (more content not included)... Normal [facility] Renal function 2000 panelon 09-24-2024 Albumin [Mass/Vol] 4.0 g/dL Normal 3.9-4.9 [facility] Comment on above: Order Comment: Spectono florez Type: BLOOD SPECIMEN Ordering Facility: [facility] Address: [address] [place] [address] Performed By: #### 3 969-3 #### [facility] CLIA [id number] [address] [place] [address] [place] Anion gap [Moles/Vol] 13 mmol/L Normal 8-15 [facility] Comment on above: Order Comment: Speci men Type: BLOOD SPECIMEN Ordering Facility: [facility] Address: [address] [place] [address] Performed By: #### 3 969-3 #### [facility] CLIA [id number] [address] [place] [address] [place] Calcium [Mass/Vol] 9.5 mg/dL Normal 8.5-10.2 [facility] Comment on above: Order Comment: Speci men Type: BLOOD SPECIMEN Ordering Facility: [facility] Address: [address] [place] [address] Performed By: #### 3 969-3 #### [facility] CLIA [id number] [address] [place] [address] [place] Chloride [Moles/Vol] 100 mmol/L Normal 98-107 [facility] Comment on above: Order Comment: Speci men Type: BLOOD SPECIMEN Ordering Facility: [facility] Address: [address] [place] [address] Performed By: #### 3 969-3 #### [facility] CLIA [id number] [address] [place] [address] [place] CO2 [Moles/Vol] 24 mmol/L Normal 22-30 [facility] Comment on above: Order Comment: Speci men Type: BLOOD SPECIMEN Ordering Facility: [facility] Address: [address] [place] [address] Performed By: #### 3 969-3 #### [facility] CLIA [id number] [address] [place] [address] [place] Creatinine [Mass/Vol] 0.77 mg/dL Normal 0.73-1.22 [facility] Comment on above: Order Comment: Speci men Type: BLOOD SPECIMEN Ordering Facility: [facility] Address: [address] [place] [address] Performed By: #### 3 969-3 #### [facility] CLIA [id number] [address] [place] [address] [place] Creatinine and Glomerular filtration rate.predicted panel (S/P/Bld) 104 mL/min/1.73m??? Normal >=60 [facility] Comment on above: Order Comment: Speci men Type: BLOOD SPECIMEN Ordering Facility: [facility] Address: [address] [place] [address] Result Comment: Bianca mated Glomerular Filtration Rate [...] accurately reflect actual GFR. Performed By: #### 3 969-3 #### [facility] CLIA [id number] [address] [place] [address] [place] Glucose [Mass/Vol] 158 mg/dL High 74-99 [facility] Comment on above: Order Comment: Jonas florez Type: BLOOD SPECIMEN Ordering Facility: [facility] Address: [address] [place] [address] Result Comment: The [place] Diabetes Association (ADA) provides guidance for cutoff [...] Standards of Medical Care in Diabetes 2016, [place] [employer]. Diabetes Care. 2016.39(Suppl 1). Performed By: #### 3 969-3 #### [facility] CLIA [id number] [address] [place] [address] [place] Phosphate [Mass/Vol] 3.7 mg/dL Normal 2.7-4.8 [facility] Comment on above: Order Comment: Jonas florez Type: BLOOD SPECIMEN Ordering Facility: [facility] Address: [address] [place] [address] Performed By: #### 3 969-3 #### [facility] CLIA [id number] [address] [place] [address] [place] Potassium [Moles/Vol] 3.9 mmol/L Normal 3.7-5.1 [facility] Comment on above: Order Comment: Speci men Type: BLOOD SPECIMEN Ordering Facility: [facility] Address: [address] [place] [address] Performed By: #### 3 969-3 #### [facility] CLIA [id number] [address] [place] [address] [place] Sodium [Moles/Vol] 137 mmol/L Normal 136-144 [facility] Comment on above: Order Comment: Speci men Type: BLOOD SPECIMEN Ordering Facility: [facility] Address: [address] [place] [address] Performed By: #### 3 969-3 #### [facility] CLIA [id number] [address] [place] [address] [place] Urea nitrogen [Mass/Vol] 11 mg/dL Normal 9-24 [facility] Comment on above: Order Comment: Speci men Type: BLOOD SPECIMEN Ordering Facility: [facility] Address: [address] [place] [address] Performed By: #### 3 969-3 #### [facility] CLIA [id number] [address] [place] [address] [place] THERAPY NTon 09-24-2024 THERAPY NT HNO ID: [id number] Author: USHA PELAYO OT/Odalys Service: Occupational Therapy Author Type: Occupational Therapist Type: Therapy (PT/OT/Speech/Resp) Filed: 09/24/2024 14:24 Note Text: OCCUPATIONAL THERAPY MISSED VISIT SERVICE DATE: 09/24/2024 SERVICE TIME: 1117 ROOM: [place] [address] Patient not seen due to Patient Not Available. OT will follow up as able. SIGNATURE: MARIELA Skinner PATIENT NAME: Evangelista Borrego JR DATE: September 24, 2024 TIME: 2:23 PM Normal [facility] THERAPY NT HNO ID: [id number] Author: ALEXIA VALENTE, PT Service: Physical Therapy Author Type: Physical Therapist Type: Therapy (PT/OT/Speech/Resp) Filed: 09/24/2024 12:16 Note Text: Physical Therapy Treatment Summary SERVICE DATE: 09/24/2024 SERVICE TIME: 1106 to 1155 (-9 min non-billable time) ROOM: [place] [address] PT 6 Clicks Score: 10 DISCHARGE RECOMMENDATIONS [...] gait and mobility-other TREATMENT INTERVENTIONS Therapeutic Activity (41246), Therapeutic Exercise (18520) Timed Code Treatment (minutes): 40 Skilled Treatment [...] September 24, 2024 TIME: 12:15 PM Normal [facility] 10OH-Carbazepine SerPl-mCnco n 09-23-2024 10-Hydroxycarbazepine [Mass/Vol] <0.5 Low 3.0-35.0 [facility] Comment on above: Order Comment: Speci men Type: BLOOD SPECIMEN Ordering Facility: [facility] Address: [address] [place] [address] Result Comment: This test was developed, and its performance characteristics determined by the [facility] Department of Pathology and Laboratory Medicine. It has not been cleared or approved by the FDA. The [facility] Department of Pathology and Laboratory Medicine is regulated under CLIA as qualified to perform high-complexity testing. This test is used for clinical purposes. It should not be regarded as investigational or for research. Performed By: #### 3 1019-3 #### [facility] CLIA [id number] [address] [place] [address] [place] ALLIED HEALTHon 09-23-2024 ALLIED HEALTH HNO ID: [id number] Author: NOA MEDEIROS RT(Kelly) Service: ? Author Type: Technologist Type: Allied [...] PATIENT PRESENTS WITH AN IMPLANTABLE OR ATTACHED SENIOR ACCOUNTS PAYABLE CLERK: No RADIOLOGY DEPARTMENT: MR; Exam(s) Completed: Head: Routine Brain PERIPHERAL IV DATA: Inpatient: see LDA documentation SIGNED BY: RT Shoshana(R) September 23, 2024 10:22 PM Normal [facility] CBC panel Auto (Bld)on 09-23 Erythrocyte distribution width (RBC) [Ratio] 12.7 % Normal 11.5-15.0 [facility] Comment on above: Order Comment: Speci men Type: BLOOD SPECIMENOrdering Facility: [facility] Address: [address] [place] [address] Performed By: #### 5 8410-2 ####[facility] [id number] [address] [place] Hematocrit (Bld) [Volume fraction] 40.7 % Normal 39.0-51.0 [facility] Comment on above: Order Comment: Speci men Type: BLOOD SPECIMENOrdering Facility: [facility] Address: [address] [place] [address] Performed By: #### 5 8410-2 ####[facility] [id number] [place] [address] [place] Hemoglobin (Bld) [Mass/Vol] 14.5 g/dL Normal 13.0-17.0 [facility] Comment on above: Order Comment: Speci men Type: BLOOD SPECIMENOrdering Facility: [facility] Address: [address] [place] [address] Performed By: #### 5 8410-2 ####[facility] [id number] [place] [address] [place] MCH (RBC) [Entitic mass] 30.0 pg Normal 26.0-34.0 [facility] Comment on above: Order Comment: Speci men Type: BLOOD SPECIMENOrdering Facility: [facility] Address: [address] [place] [address] Performed By: #### 5 8410-2 ####[facility] [id number] [place] [address] [place] MCHC (RBC) [Mass/Vol] 35.6 g/dL Normal 30.5-36.0 [facility] Comment on above: Order Comment: Speci men Type: BLOOD SPECIMENOrdering Facility: [facility] Address: [address] [place] [address] Performed By: #### 5 8410-2 ####[facility] [id number] [place] [address] [place] MCV (RBC) [Entitic vol] 84.3 fL Normal 80.0-100.0 [facility] Comment on above: Order Comment: Speci men Type: BLOOD SPECIMENOrdering Facility: [facility] Address: [address] [place] [address] Performed By: #### 5 8410-2 ####[facility] [id number] [place] [address] [place] Nucleated RBC (Bld) [#/Vol] 10*3/uL Normal <0.01 [facility] Comment on above: Order Comment: Speci men Type: BLOOD SPECIMENOrdering Facility: [facility] Address: [address] [place] [address] Performed By: #### 5 8410-2 ####[facility] [id number] [place] [address] [place] Platelet mean volume (Bld) [Entitic vol] 10.0 fL Normal 9.0-12.7 [facility] Comment on above: Order Comment: Speci men Type: BLOOD SPECIMENOrdering Facility: [facility] Address: [address] [place] [address] Performed By: #### 5 8410-2 ####[facility] [id number] [place] [address] [place] Platelets (Bld) [#/Vol] 230 10*3/uL Normal 150-400 [facility] Comment on above: Order Comment: Speci men Type: BLOOD SPECIMENOrdering Facility: [facility] Address: [address] [place] [address] Performed By: #### 5 8410-2 ####[facility] [id number] [place] [address] [place] RBC (Bld) [#/Vol] 4.83 10*6/uL Normal 4.20-6.00 [facility] Comment on above: Order Comment: Speci men Type: BLOOD SPECIMENOrdering Facility: [facility] Address: [address] [place] [address] Performed By: #### 5 8410-2 ####[facility] [id number] [place] [address] [place] WBC (Bld) [#/Vol] 7.10 10*3/uL Normal 3.70-11.00 [facility] Comment on above: Order Comment: Speci men Type: BLOOD SPECIMENOrdering Facility: [facility] Address: [address] [place] [address] Performed By: #### 5 8410-2 ####[facility] [id number] [place] [address] CONSULTon 09-23-2024 CONSULT HNO ID: [id number] Author: SHERRIE PANDA APRN.POSTAL TRANSPORTATION CLERK Service: Physical Medicine AND Rehabilitation Author Type: Nurse Practitioner Type: Consults Filed: 09/23/2024 16:54 Note Text: PMANDR consult received today. Chart reviewed. Evaluation with PMANDR to follow Monday. Thank you for the consult. Please call with any questions. [facility] [address] Sherrie Panda APRN.POSTAL TRANSPORTATION CLERK Physical Medicine and Rehabilitation pager [phone] Normal [facility] CONSULT HNO ID: [id number] Author: ROSALIE LANDERS APRN.POSTAL TRANSPORTATION CLERK Service: Endocrinology Author Type: Nurse Practitioner Type: [...] ARTHROSCOPIC PROCEDURE ANKLE AND FOOT COLONOSCOPY Dr. Omer [facility] NEUROPLASTY AND/TRANSPOS MEDIAN NRV CARPAL TUNNE [...] ulcers, callus (more content not included)... Normal [facility] Cholesterol in LDL Direct as say [Mass/Vol]on 09-23-2024 Cholesterol in LDL [Mass/Vol] 76 mg/dL Normal <100 [facility] Comment on above: Order Comment: Speci men Type: BLOOD SPECIMEN [facility] Facility[facility] Address: [address] [place] [address] Result Comment: <100 mg/dL, Optimal 100-129 mg/dL, Near optimal/above optimal 130-159 mg/dL, Borderline high 160-189 mg/dL, High >189 mg/dL, Very high Secondary prevention optimal LDL Cholesterol levels are recommended to be < 70 mg/dL Performed By: #### 5 8410-2 #### [facility] CLIA [id number] [address] ECG COMPLETEon 09-23-2024 ECG COMPLETE Ventricular Rate : 56 BPM Atrial Rate : 56 BPM P-R Interval : 196 ms QRS Duration : 112 ms Q-T Interval : 444 ms QTC Calculation(Bazett) : 428 ms Calculated P Binford : 28 degrees Calculated R Binford : -44 degrees Calculated T Binford : -18 degrees SINUS BRADYCARDIA LEFT AXIS DEVIATION MINIMAL VOLTAGE CRITERIA FOR LVH, MAY BE NORMAL VARIANT ( [place] product ) INFERIOR MYOCARDIAL INFARCTION , AGE UNDETERMINED ABNORMAL ECG Confirmed by LAMONT LAGOS MD ([id number]) on 10/09/2024 7:33:53 AM NAME : EVANGELISTA BORREGO JR PID : [id number] : 1965 Gender : Male Race : ORD : [id number] Procedure Date : Sep 23 2024 00:24:32 [...] CASSIE SMITH Acquired by : CASSY GRIGSBY [facility] ECHOon 09-23-2024 Echocardiography Echocardiography Report: Transthoracic Echo [place] Bedside Date of service: 09/23/2024 1:43:40 PM AND PARTS ATTENDANT Ordering physician: JOE ZAMORA Indication: Stroke Technologist: [...] * * Final * * * CC [facility] : [id number]. [id number] Normal [facility] MRI BRAIN WO/W IVCONon 09-23 MRI BRAIN WO/W IVCON * * *Final Report* * * DATE OF EXAM: Sep 23 2024 10:45PM QBM 0295 - MRI BRAIN WO/W IVCON / [...] susceptibility compatible with nonhemorrhagic acute infarct in RENT COLLECTOR perforating vessel distribution (correlate with history and CTA results). 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 Additional allowing for difference in modality stable senescent volume loss and microvascular ischemia is noted without additional acute intracranial abnormality. On contrast no abnormal enhancement in brain or meninges. 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 Supervisor Char House: LILO Transcribe Date/Time: Sep 23 2024 10:46P Dictated by : ROHIT OROURKE MD This examination was interpreted and the report reviewed and electronically signed by: ROHIT OROURKE MD on Sep 23 2024 10:49PM EST [id number] Normal [facility] NURSING PROGon 09-23-2024 NURSING PROG HNO ID: [id number] Author: SHIREEN VAUGHAN RN Service: Nursing Author Type: Registered Nurse [...] September 23, 2024 TIME: 10:06 PM Normal [facility] NURSING PROG HNO ID: [id number] Author: SHWETA DUNN RN Service: Nursing Author [...] before. BP retaken, VSS. BEM button pushed. [phone] paged, Stephen Perry called RNs Katie and [...] paged to remove leads, MRI notified. Normal [facility] Phenytoin Free SerPl-mCncon 09-23-2024 Phenytoin Free [Mass/Vol] <0.4 Low 1.0-2.0 [facility] Comment on above: Order Comment: Jonas florez Type: BLOOD SPECIMEN Ordering Facility: [facility] Address: [address] [place] [address] Result Comment: Refe rence ranges and high/low indicator flags are provided as general guidelines only. The treating physician must determine appropriate target levels/dosing based on the specific clinical situation. Result rechecked. Performed By: #### 3 969-3 #### [facility] CLIA [id number] [address] [place] [address] [place] [address] [place] Renal function 2000 panelon 09-23-2024 Albumin [Mass/Vol] 4.0 g/dL Normal 3.9-4.9 [facility] Comment on above: Order Comment: Jonas florez Type: BLOOD SPECIMEN [facility]ing Facility: [facility] Address: [address] [place] [address] Performed By: #### 5 8410-2 #### [facility] CLIA [id number] [address] [place] [address] [place] Anion gap [Moles/Vol] 14 mmol/L Normal 8-15 [facility] Comment on above: Order Comment: Speci men Type: BLOOD SPECIMEN Ordering Facility: [facility] Address: [address] [place] [address] Performed By: #### 5 8410-2 #### [facility] CLIA [id number] [address] [place] [address] [place] Calcium [Mass/Vol] 9.1 mg/dL Normal 8.5-10.2 [facility] Comment on above: Order Comment: Speci men Type: BLOOD SPECIMEN Ordering Facility: [facility] Address: [address] [place] [address] Performed By: #### 5 8410-2 #### [facility] CLIA [id number] [address] [place] [address] [place] Chloride [Moles/Vol] 102 mmol/L Normal 98-107 [facility] Comment on above: Order Comment: Speci men Type: BLOOD SPECIMEN Ordering Facility: [facility] Address: [address] [place] [address] Performed By: #### 5 8410-2 #### [facility] CLIA [id number] [address] [place] [address] [place] CO2 [Moles/Vol] 23 mmol/L Normal 22-30 [facility] Comment on above: Order Comment: Speci men Type: BLOOD SPECIMEN Ordering Facility: [facility] Address: [address] [place] [address] Performed By: #### 5 8410-2 #### [facility] CLIA [id number] [address] [place] [address] [place] Creatinine [Mass/Vol] 0.83 mg/dL Normal 0.73-1.22 [facility] Comment on above: Order Comment: Speci men Type: BLOOD SPECIMEN Ordering Facility: [facility] Address: [address] [place] [address] Performed By: #### 5 8410-2 #### [facility] CLIA [id number] [address] [place] [address] [place] Creatinine and Glomerular filtration rate.predicted panel (S/P/Bld) 101 mL/min/1.73m??? Normal >=60 [facility] Comment on above: Order Comment: Jonas florez Type: BLOOD SPECIMEN Ordering Facility: [facility] Address: [address] [place] [address] Result Comment: Bianca mated Glomerular Filtration Rate [...] accurately reflect actual GFR. Performed By: #### 5 8410-2 #### [facility] CLIA [id number] [address] [place] [address] [place] Glucose [Mass/Vol] 200 mg/dL High 74-99 [facility] Comment on above: Order Comment: Jonas florez Type: BLOOD SPECIMEN Ordering Facility: [facility] Address: [address] [place] [address] Result Comment: The [place] Diabetes Association (ADA) provides guidance for cutoff [...] Standards of Medical Care in Diabetes 2016, [place] [employer]. Diabetes Care. 2016.39(Suppl 1). Performed By: #### 5 8410-2 #### [facility] CLIA [id number] [address] [place] [address] [place] Phosphate [Mass/Vol] 3.0 mg/dL Normal 2.7-4.8 [facility] Comment on above: Order Comment: Speci men Type: BLOOD SPECIMEN Ordering Facility: [facility] Address: [address] [place] [address] Performed By: #### 5 8410-2 #### [facility] CLIA [id number] [address] [place] [address] [place] Potassium [Moles/Vol] 3.9 mmol/L Normal 3.7-5.1 [facility] Comment on above: Order Comment: Speci men Type: BLOOD SPECIMEN Ordering Facility: [facility] Address: [address] [place] [address] Performed By: #### 5 8410-2 #### [facility] CLIA [id number] [address] [place] [address] [place] Sodium [Moles/Vol] 139 mmol/L Normal 136-144 [facility] Comment on above: Order Comment: Speci men Type: BLOOD SPECIMEN Ordering Facility: [facility] Address: [address] [place] [address] Performed By: #### 5 8410-2 #### [facility] CLIA [id number] [address] [place] [address] [place] Urea nitrogen [Mass/Vol] 11 mg/dL Normal 9-24 [facility] Comment on above: Order Comment: Speci men Type: BLOOD SPECIMEN Ordering Facility: [facility] Address: [address] [place] [address] Performed By: #### 5 8410-2 #### [facility] CLIA [id number] [address] [place] [address] [place] THERAPY NTon 09-23-2024 THERAPY NT HNO ID: [id number] Author: JOSE ROSS CCC-EDGER OPERATOR Service: Speech/Swallow Author Type: Speech Language Pathologist Type: Therapy (PT/OT/Speech/Resp) Filed: 09/23/2024 18:21 Note Text: [facility] Speech Pathology - [facility] Bedside Swallow Evaluation SERVICE DATE: 09/23/2024 ROOM: [place] [address] This service received consults for speech-language and [...] CONSISTENCY Soft and Bite-Sized (L6) with Mildly Thick/[place] Thick (L2) liquids Limit distractions during intake Supervision / assistance with all PO Sit as upright as comfortably possible for all PO Alternate solids / liquids Feed at slow rate Small bites / sips Give medications whole in applesauce / pudding only if problematic with nectar thick liquids If further concerns, please contact this EDGER OPERATOR for further assessment Speech / Swallowing therapy in house and after discharge, LOC TBD PLAN: EDGER OPERATOR will follow in house. Jose Ross [facility]-EDGER OPERATOR Pager # [phone] BRIEF DIAGNOSIS AND HISTORY: Mr. Evangelista Borrego [...] and keep patient flat. Patient transferred to [facility] SDU for further observation and [...] future visits. CONSISTENCIES GIVEN: Ice chips Water [place] thick liquid Pudding Crumbled Zach cracke (more content not included)... Normal [facility] THERAPY NT HNO ID: [id number] Author: USHA PELAYO, OT/L Service: Occupational Therapy Author Type: Occupational Therapist Type: Therapy (PT/OT/Speech/Resp) Filed: 09/23/2024 16:28 Note Text: Occupational Therapy Evaluation Summary SERVICE DATE: 09/23/2024 SERVICE TIME: 1529 to 1607 ROOM: [place] [address] OT 6 Clicks Score: 16 DISCHARGE RECOMMENDATIONS [...] of New Positive 4AT Score: Rosalie Elena COGENERATION OPERATOR (09/23/24) Delirium Positive/Negative: Positive (09/23/24) Cognitive Activities [...] of coordination-other TREATMENT INTERVENTIONS Evaluation, Cognitive Training (59352 and 79077), Self Custodial Management (01765) Timed Code Treatment (minutes): 23 Skilled Treatment [...] Chair Toilet/Comm (more content not included)... Normal [facility] NT HNO ID: [id number] Author: ALEXIA VALENTE PT Service: Physical Therapy Author Type: Physical Therapist Type: Therapy (PT/OT/Speech/Resp) Filed: 09/23/2024 14:04 Note Text: Physical Therapy Evaluation Summary SERVICE DATE: 09/23/2024 SERVICE TIME: 1302 to 1342 ROOM: [facility]063[facility] PT 6 Clicks Score: 13 DISCHARGE RECOMMENDATIONS Acute [...] and mobility-other TREATMENT INTERVENTIONS Evaluation, Therapeutic Activity (35715) Timed Code Treatment (minutes): 25 Skilled Treatment [...] September 23, 2024 TIME: 2:04 PM Normal [facility] TOXICOLOGY SCREEN, ROUTINE U RINEon 09-23-2024 Amphetamines Confirm (U) [Mass/Vol] Negative Normal Negative [facility] Comment on above: Order Comment: Speci men Type: URINE SPECIMENOrdering Facility: [facility] Address: [address] [place] [address] Result Comment: Cuto ff threshold at 1000 ng/mL. Performed By: #### U TOX2 ####[facility] [id number] [place] [address] [place] BARBITURATES, URINE Negative Normal Negative [facility] Comment on above: Order Comment: Speci men Type: URINE SPECIMENOrdering Facility: [facility] Address: [address] [place] [address] Result Comment: Cuto ff threshold at 200 ng/mL. Performed By: #### U TOX2 ####[facility] [id number] [place] [address] [place] BENZODIAZEPINES, UR Negative Normal Negative [facility] Comment on above: Order Comment: Speci men Type: URINE SPECIMENOrdering Facility: [facility] Address: [address] [place] [address] Result Comment: Cuto ff threshold at 200 ng/mL. Performed By: #### U TOX2 ####[facility] [id number] [place] [address] [place] Cannabinoids Screen Ql (U) Negative Normal Negative [facility] Comment on above: Order Comment: Speci men Type: URINE SPECIMENOrdering Facility: [facility] Address: [address] [place] [address] Result Comment: Cuto ff threshold at 50 ng/mL. Performed By: #### U TOX2 ####[facility] [id number] [place] [address] [place] Cocaine Ql (U) Negative Normal Negative [facility] Comment on above: Order Comment: Speci men Type: URINE SPECIMENOrdering Facility: [facility] Address: [address] [place] [address] Result Comment: Cuto ff threshold at 300 ng/mL. Performed By: #### U TOX2 ####[facility] [id number] [place] [address] [place] Ethanol (U) [Mass/Vol] <11 Normal <11 [facility] Comment on above: Order Comment: Speci men Type: URINE SPECIMENOrdering Facility: [facility] Address: [address] [place] [address] Performed By: #### U TOX2 ####[facility] [id number] [place] [address] [place] Opiates Screen Ql (U) Negative Normal Negative [facility] Comment on above: Order Comment: Speci men Type: URINE SPECIMENOrdering Facility: [facility] Address: [address] [place] [address] Result Comment: Cuto ff threshold at 300 ng/mL. Performed By: #### U TOX2 ####[facility]IA [id number] [place] [address] [place] oxyCODONE cutoff Screen (U) [Mass/Vol] Negative Normal Negative [facility] Comment on above: Order Comment: Speci men Type: URINE SPECIMENOrdering Facility: [facility] Address: [address] [place] [address] Result Comment: Cuto ff threshold at 100 ng/mL. Performed By: #### U TOX2 ####[facility]IA [id number] [address] [place] Phencyclidine Ql (U) Negative Normal Negative [facility] Comment on above: Order Comment: Speci men Type: URINE SPECIMENOrdering Facility: [facility] Address: [address] [place] [address] Result Comment: Cuto ff threshold at 25 ng/mL. Performed By: #### U TOX2 ####[facility]IA [id number] [place] [address] [place] .Auto Diffon 09-22-2024 Basophil, Absolute 0.1 10 3/mcL Normal 0.0-0.2 [facility] Comment on above: Performed By: #### L AC, ANEU, TROPHS, MDW, PRO, APTT, CRE, CBC, GFR, ADIFF #### [address] [address] Basophils/100 WBC (Bld) 1.0 % Normal 0.0-2.5 [facility] Comment on above: Performed By: #### L AC, ANEU, TROPHS, MDW, PRO, APTT, CRE, CBC, GFR, ADIFF #### [address] [address] Eosinophil, Absolute 0.1 10 3/mcL Normal 0.0-0.7 [facility] Comment on above: Performed By: #### L AC, ANEU, TROPHS, MDW, PRO, APTT, CRE, CBC, GFR, ADIFF #### [address] [address] Eosinophils/100 WBC (Bld) 1.9 % Normal 0.0-7.0 [facility] Comment on above: Performed By: #### L AC, ANEU, TROPHS, MDW, PRO, APTT, CRE, CBC, GFR, ADIFF #### [address] [address] Lymphocyte, Absolute 2.1 10 3/mcL Normal 0.9-4.3 [facility] Comment on above: Performed By: #### L AC, ANEU, TROPHS, MDW, PRO, APTT, CRE, CBC, GFR, ADIFF #### [address] [address] Lymphocytes/100 WBC (Bld) 31.5 % Normal 20.0-40.0 [facility] Comment on above: Performed By: #### L AC, ANEU, TROPHS, MDW, PRO, APTT, CRE, CBC, GFR, ADIFF #### [address] [address] Monocyte, Absolute 0.6 10 3/mcL Normal 0.1-1.4 [facility] Comment on above: Performed By: #### L AC, ANEU, TROPHS, MDW, PRO, APTT, CRE, CBC, GFR, ADIFF #### [address] [address] Monocytes/100 WBC (Bld) 8.5 % Normal 2.0-13.0 [facility] Comment on above: Performed By: #### L AC, ANEU, TROPHS, MDW, PRO, APTT, CRE, CBC, GFR, ADIFF #### [address] [address] Neutrophils/100 WBC (Bld) 57.1 % Normal 50.0-75.0 [facility] Comment on above: Performed By: #### L AC, ANEU, TROPHS, MDW, PRO, APTT, CRE, CBC, GFR, ADIFF #### [address] [address] .GFRon 09-22-2024 Estimated Glomerular Filtration Rate 95 ml/min/1.73sqm Normal [facility] Comment on above: Result Comment: Stages [...] the eGFR results. Performed By: #### L STELLA TRENT TROPHS, JUICE, PRO, APTT, CRE, CBC, GFR, ADIFF #### [address] [address] .MDWon 09-22-2024 Monocyte Distribution Width 20.00 Normal 0.00-20.00 [facility] Comment on above: Result Comment: For ED adult patients suspected of sepsis, MDW<=20.0 does not rule out sepsis or risk of sepsis Performed By: #### L STELLA TRENT TROPHS, MDW, PRO, APTT, CRE, CBC, GFR, ADIFF #### [address] [address] .NEUABSon 09-22-2024 Neutrophil, Absolute 3.8 10 3/mcL Normal 2.3-8.1 [facility] Comment on above: Performed By: #### L STELLA TRENT TROPHS, JUICE, PRO, APTT, CRE, CBC, GFR, ADIFF #### [address] [address] APTTon 09-22-2024 aPTT Coag (Bld) [Time] 28.2 s Normal 25.0-35.0 [facility] Comment on above: Result Comment: For Heparin anticoagulation therapy, the recommended therapeutic range is: 45.4-75.9 seconds. Patients on heparin therapy may have an extreme result. Performed By: #### L AC, ANEU, TROPHS, MDW, PRO, APTT, CRE, CBC, GFR, ADIFF ####[place] [address] CBCon 09-22-2024 Erythrocyte distribution width (RBC) [Ratio] 13.7 % Normal 11.5-15.5 [facility] Comment on above: Performed By: #### L AC, ANEU, TROPHS, MDW, PRO, APTT, CRE, CBC, GFR, ADIFF #### [place] [address] Hematocrit (Bld) [Volume fraction] 43.6 % Normal 40.0-52.0 [facility] Comment on above: Performed By: #### L AC, ANEU, TROPHS, MDW, PRO, APTT, CRE, CBC, GFR, ADIFF #### [place] [address] Hgb 15.8 G/dL Normal 13.0-17.5 [facility] Comment on above: Performed By: #### L AC, ANEU, TROPHS, MDW, PRO, APTT, CRE, CBC, GFR, ADIFF #### [place] [address] MCH (RBC) [Entitic mass] 31.1 pg Normal 27.0-33.0 [facility] Comment on above: Performed By: #### L AC, ANEU, TROPHS, MDW, PRO, APTT, CRE, CBC, GFR, ADIFF #### [place] [address] MCHC 36.3 G/dL High 32.0-36.0 [facility] Comment on above: Performed By: #### L AC, ANEU, TROPHS, MDW, PRO, APTT, CRE, CBC, GFR, ADIFF #### [place]y [place] [address] [place], [place] [address] MCV (RBC) [Entitic vol] 85.8 fL Normal 81.0-100.0 [facility] Comment on above: Performed By: #### L AC, ANEU, TROPHS, MDW, PRO, APTT, CRE, CBC, GFR, ADIFF #### [address] [address] Platelet 239 10 3/mcL Normal 150-450 [facility] Comment on above: Performed By: #### L AC, ANEU, TROPHS, MDW, PRO, APTT, CRE, CBC, GFR, ADIFF #### [address] [address] Platelet mean volume (Bld) [Entitic vol] 7.6 fL Normal 6.4-10.5 [facility] Comment on above: Performed By: #### L AC, ANEU, TROPHS, MDW, PRO, APTT, CRE, CBC, GFR, ADIFF #### [address] [address] RBC 5.08 10 6/mcL Normal 4.50-6.00 [facility] Comment on above: Performed By: #### L AC, ANEU, TROPHS, MDW, PRO, APTT, CRE, CBC, GFR, ADIFF #### [address] [address] WBC 6.7 10 3/mcL Normal 4.5-10.8 [facility] Comment on above: Performed By: #### L AC, ANEU, TROPHS, MDW, PRO, APTT, CRE, CBC, GFR, ADIFF #### [address] [address] CBC panel Auto (Bld)on 09-22 Erythrocyte distribution width (RBC) [Ratio] 12.7 % Normal 11.5-15.0 [facility] Comment on above: Order Comment: Speci men Type: BLOOD SPECIMEN Ordering Facility: [facility] Address: [address] [place] [address] Performed By: #### 5 8410-2 #### [facility] CLIA [id number] [address] [place] Hematocrit (Bld) [Volume fraction] 39.5 % Normal 39.0-51.0 [facility] Comment on above: Order Comment: Speci men Type: BLOOD SPECIMEN Ordering Facility: [facility] Address: [address] [place] [address] Performed By: #### 5 8410-2 #### [facility] CLIA [id number] [address] [place] Hemoglobin (Bld) [Mass/Vol] 14.1 g/dL Normal 13.0-17.0 [facility] Comment on above: Order Comment: Speci men Type: BLOOD SPECIMEN Ordering Facility: [facility] Address: [address] [place] [address] Performed By: #### 5 8410-2 #### [facility] CLIA [id number] [address] [place] MCH (RBC) [Entitic mass] 30.3 pg Normal 26.0-34.0 [facility] Comment on above: Order Comment: Speci men Type: BLOOD SPECIMEN Ordering Facility: [facility] Address: [address] [place] [address] Performed By: #### 5 8410-2 #### [facility] CLIA [id number] [address] [place] MCHC (RBC) [Mass/Vol] 35.7 g/dL Normal 30.5-36.0 [facility] Comment on above: Order Comment: Speci men Type: BLOOD SPECIMEN Ordering Facility: [facility] Address: [address] [place] [address] Performed By: #### 5 8410-2 #### [facility] CLIA [id number] [address] MCV (RBC) [Entitic vol] 84.8 fL Normal 80.0-100.0 [facility] Comment on above: Order Comment: Speci men Type: BLOOD SPECIMEN Ordering Facility: [facility] Address: [address] [place], [place] [address] Performed By: #### 5 8410-2 #### [facility] CLIA [id number] 1000 [place] [address] [place] Nucleated RBC (Bld) [#/Vol] 10*3/uL Normal <0.01 [facility] Comment on above: Order Comment: Speci men Type: BLOOD SPECIMEN Ordering Facility: [facility] Address: [address] [place] [address] Performed By: #### 5 8410-2 #### [facility] CLIA [id number] [address] [place] [address] [place] Platelet mean volume (Bld) [Entitic vol] 9.9 fL Normal 9.0-12.7 [facility] Comment on above: Order Comment: Speci men Type: BLOOD SPECIMEN Ordering Facility: [facility] Address: [address] [place] [address] Performed By: #### 5 8410-2 #### [facility] CLIA [id number] [address] [place] [address] [place] Platelets (Bld) [#/Vol] 221 10*3/uL Normal 150-400 [facility] Comment on above: Order Comment: Speci men Type: BLOOD SPECIMEN Ordering Facility: [facility] Address: [address] [place] [address] Performed By: #### 5 8410-2 #### [facility] CLIA [id number] [address] [place] [address] [place] RBC (Bld) [#/Vol] 4.66 10*6/uL Normal 4.20-6.00 [facility] Comment on above: Order Comment: Speci men Type: BLOOD SPECIMEN Ordering Facility: [facility] Address: [address] [place] [address] Performed By: #### 5 8410-2 #### [facility] CLIA [id number] [address] [place] [address] [place] WBC (Bld) [#/Vol] 5.93 10*3/uL Normal 3.70-11.00 [facility] Comment on above: Order Comment: Speci men Type: BLOOD SPECIMEN Ordering Facility: [facility] Address: [address] [place] [address] Performed By: #### 5 8410-2 #### [facility] CLIA [id number] [address] [place] [address] [place] CREon 09-22-2024 Creatinine [Mass/Vol] 0.93 mg/dL Normal 0.70-1.30 [facility] Comment on above: Result Comment: Test ing performed on Siemens Dimension EXL analyzer using a modified kinetic Aminah technique. 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 Changes of this report, as well as communication of the left RENT COLLECTOR P1 segment occlusion, was communicated to Dr. [...] CASSIE SMITH [facility] HISTORY PHYSICALon HISTORY PHYSICAL HNO ID: [id number] Author: MEGAN CORRAL DO Service: Neurology General Author Type: Resident Type: H&P Filed: 09/23/2024 20:04 Note Text: Attestation signed by Megan Corral DO at 09/23/2024 8:04 PM [facility] STAFF PHYSICIAN NOTE OF PERSONAL INVOLVEMENT IN [...] problems. All questions were answered. SIGNATURE: Megan oCrral DO DATE of SERVICE: September 23, 2024 [...] a candidate for TNK given time from W. Recommendation was made to give ASA load and keep patient flat. Patient transferred to [facility] SDU for further observation and [...] to admission: Statin Pre-morbid mRS: Premorbid Modified [place] Score: 1 - No significant disability despite symptoms - able to carry out all usual duties and activities PAST MEDICAL HISTORY Diagnosis Date Generalized anxiety disorder Anxiety, Generalized Mixed hyperlipidemia Hyperlipidemia Seizures (HCC) Type II or unspecified type diabetes mellitus without mention of complication, not stated as uncontrolled PAST SURGICAL HISTORY Procedure Laterality Date ANESTHESIA ARTHROSCOPIC PROCEDURE ANKLE AND FOOT COLONOSCOPY Dr. Omer [facility] NEUROPLASTY AND/TRANSPOS MEDIAN NRV CARPAL TUNNE [...] cyclobenzaprine (FLEXERIL (more content not included)... Normal [facility] HbA1c (Bld)on 09-22-2024 Average glucose Estimated from glycated hemoglobin (Bld) [Mass/Vol] 232 mg/dL Normal [facility] Comment on above: Order Comment: Jonas florez Type: BLOOD SPECIMEN Ordering Facility: [facility] Address: [address] [place] [address] Result Comment: eAG: (Estimated average glucose) is a calculated value from HgbA1c and is medical representative of the average blood glucose level in the last 2-3 month period. Performed By: #### 5 8410-2 #### [facility] CLIA [id number] [address] HbA1c (Bld) [Mass fraction] 9.7 % High 4.3-5.6 [facility] Comment on above: Order Comment: Jonas florez Type: BLOOD SPECIMEN Ordering Facility: [facility] Address: [address] [place] [address] Result Comment: Amer ican Diabetes Association guidelines indicate that patients with HgbA1c in the range 5.7-6.4% are at increased risk for development of diabetes, and intervention by lifestyle modification may be beneficial. HgbA1c greater or equal to 6.5% is considered diagnostic of diabetes. Performed By: #### 5 8410-2 #### [facility] CLIA [id number] [address] LABORATORYOrdered By: SYSTEM SYSTEM on 09-22-2024 aPTT [...] Comment on above: Interpretive Data: Carlee zaragoza [employer] (CHEST, 1991, 102:312S-25S) [...] ng/L Male: 0-76 ng/L Testing performed on [employer] using a homogeneous sandwich chemiluminescent immunoassay based on [employer] technology. WBC (Bld) [#/Vol] 6.7 103/mcL Normal 4.5 - 10.8 10^3/mcL AO Workflow SS LABORATORYOrdered By: Randall Jones on 09-22-2024 Glucose [Mass/Vol] 258 mg/dL High 70 - 110 mg/dL [facility] LACon 09-22-2024 Lactic Acid Lvl 0.9 mmol/L Normal 0.4-2.0 [facility] Comment on above: Performed By: #### L AC, ANEU, TROPHS, MDW, PRO, APTT, CRE, CBC, GFR, ADIFF ####[facility] [place] [address] LIPID PANEL, NONFASTINGon Cholesterol [Mass/Vol] 193 mg/dL Normal <200 [facility] Comment on above: Order Comment: Spectono florez Type: BLOOD SPECIMEN [facility] Address: [address] [place] [address] Result Comment: <200 mg/dL, Desirable 200-239 mg/dL, Borderline high >239 mg/dL, High Performed By: #### 3 969-3 #### [facility] CLIA [id number] [address] [place] [address] [place] HDL CHOLESTEROL, NF 31 mg/dL Low >39 [facility] Comment on above: Order Comment: Jonas florez Type: BLOOD SPECIMEN [facility] Address: [address] [place] [address] Result Comment: 40-5 9 mg/dL, Acceptable >59 mg/dL, High: Negative risk factor for coronary heart disease <40 mg/dL, Low: Positive risk factor for coronary heart disease Performed By: #### 3 969-3 #### [facility] CLIA [id number] [address] [place] [address]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 Phone: [facility] 08-11-2011 influenza virus vacc ine, unspecified formulation Jin Gilbert MD Work Phone: [facility] 05-19-2010 influenza virus vacc ine, unspecified formulation Jin Gilbert MD Work Phone: [facility] 03-01-2010 pneumococcal polysaccharide vaccine, 23 valent Jin Gilbert MD Work Phone: [facility] 06-01-2009 influenza virus vacc ine, unspecified formulation Jin Gilbert MD Work Phone: [facility] 07-24-2008 tetanus toxoid, redu micki diphtheria toxoid, and acellular pertussis vaccine, adsorbed Jin Gilbert MD Work Phone: [facility] Payers Date Payer Category Payer Self-pay [id number] 2022 Medicaid HMO [employer] ODM [id number] 2022 Medicaid [id number] 2021 Unknown [id number] 2021 Unknown 2019 Medicaid [employer] [id number] 2019-Present [phone] [address] [place] [address] Medicaid [id number] 2019 Medicaid [id number] 2016 Unknown [employer] [facility] MEDICAID xxxxxxxxxxx 2016-Present [phone] CLAIMS DEPARTMENT [address] [place] [address] xxxxxxxxxxx [id number] 2016 Unknown [id number] 1965 Unknown [id number] 1966 Unknown [id number] 1966 Unknown [id number] 1966 Unknown [id number] Unknown [id number] Unknown [id number] Social History Date Type Detail Facility Start: 06-12-2019 End: 09-07-2022 Tobacco smoking status NHIS Former smoker [place], [place] End: 06-23-1980 History of tobacco use Current smoker [place], [place] End: 06-23-1980 History of tobacco use Cigarette Smoker [place], [place] Start: 06-12-2019 End: 10-31-2024 Cigarettes smoked current (pack per day) - Reported [facility] Start: 06-12-2019 End: 03-29-2024 Alcohol intake Ex-drinker (finding) [employer] Rohit ALFARO Y Start: 1965 Sex Assigned At Not on file [facility] SANG ALFARO Start: 07-19-2012 End: 06-12-2019 Never smoked tobacco (finding) [facility] Sex Assigned At [facility] Start: 10-05-2021 Tobacco smoking stat [facility] Unknown if ever smoked [facility] Work Phone: Start: 1965 Sex Assigned At Male [facility] Start: 07-19-2012 End: 06-12-2019 Tobacco use and exposure Smokeless tobacco non-user [employer] Work Phone: Start: 12-30-2021 End: 02-14-2022 Exposure to SARS-CoV-2 (event) Not sure [employer] Phone: Start: 02-14-2022 End: 01-30-2025 Alcohol intake Current non-drinker of alcohol (finding) [facility] Start: 01-09-2022 End: 10-31-2024 Tobacco use panel [facility] How often do you nee d to have someone help you when you read instructions, pamphlets, or other written material from your doctor or pharmacy [SILS] Never [facility] Has the [employer], or [employer] threatened to shut off services in your home in past 12Mo Yes Seaters Within the last year , have you been afraid of your partner or ex-partner? No [facility] Are you now , , , , never or living with a partner? [facility] How often to you hav e a drink containing alcohol? Monthly or less [facility] How many standard drinks containing alcohol do you have on a typical day? 1 or 2 [facility] How often do you hav e 6 or more drinks on 1 occasion? Never [facility] How hard is it for y ou to pay for the very basics like food, housing, medical care, and heating Somewhat hard [facility] Do you feel stress - tense, restless, nervous, or anxious, or unable to sleep at night because your mind is troubled all the time - these days [OSQ] To some extent [facility] (I/We) worried wheth er (my/our) food would run out before (I/we) got money to buy more. Sometimes true [facility] Start: 11-04-2013 End: 02-21-2022 Sex Male (finding) [facility] Medical Equipment Procedure Code Equipment Code Equipment Origin al Text Equipment Identifier Dates Use as instructed. [id number] Start: 03-13-2013 Comment on above: Use as instructed. Functional Status Date Assessment Result Facility 09-29-2024 Are you deaf, or do you have serious difficulty hearing No 09/29/2024 12:26 PM EDT Amanda Barton LPN No [facility] 09-29-2024 Are you blind, or do you have serious difficulty seeing, even when wearing glasses No 09/29/2024 12:26 PM EDT Amanda Barton LPN No [facility] 09-29-2024 Do you have serious difficulty walking or climbing stairs Yes 09/29/2024 12:26 PM EDT Amanda Barton LPN Yes [facility] 09-29-2024 Do you have difficul ty dressing or bathing Yes 09/29/2024 12:26 PM EDT Amanda Barton LPN Yes [facility] 09-29-2024 Because of a physica l, mental, or emotional condition, do you have difficulty doing errands alone such as visiting a physician's office or shopping Yes 09/29/2024 12:26 PM EDT Amanda Barton LPN Yes [facility] 09-22-2024 Functional Status Repositioned back [facility]3] 09-22-2024 Functional Status [facility] 09-22-2024 Functional Status [facility] Mental Status Date Assessment Result Facility 09-29-2024 Because of a physica l, mental, or emotional condition, do you have serious difficulty concentrating, remembering, or making decisions Yes 09/29/2024 12:26 PM EDT Amanda Barton LPN Yes [facility] 09-22-2024 Mental Status Orientation Not oriented to time, Not oriented to situation, Follows simple commands [facility] Clinical Notes 09-23-2021 to 02-07-2025 Telephone Encounter - Malinda Downs - 02/07/2025 3:21 PM EDTTelephone Encounter - Malinda Downs - 02/07/2025 3:21 PM EDTPatient InstructionsDodie Irvin APRN.CNP - 01/30/2025 1:05 PM EDT Note Date & Type Note Facility 02-07-2025 Telephone encounter Note Received outside medical records (bloodwork) from [facility] and scanned into patient chart. [facility] 02-07-2025 Miscellaneous Notes Received outside medical records (bloodwork) from [facility] and scanned into patient chart. documented in this encounter [facility] 01-30-2025 Instructions Dodie Irvin APRN.TUCKER - 01/30/2025 1:37 PM EDT Continue Aspirin [...] in 6 months documented in this encounter [facility] 01-30-2025 History of Presen t illness Narrative [facility] Established Visit Consultation is requested by: Joe Zamora [address] [facility] [id number] PCP: Adriana Shaw MD (Dr) [address] [place] [address] CEREBROVASCULAR HISTORY Evangelista Borrego JR is a 59 year old male. Stroke Event Information [facility] 09/22/24-09/29/24 Mr. Evangelista Borrego is a [...] and keep patient flat. Patient transferred to [facility] SDU for further observation and [...] then last visit Continues to reside in [facility] PAST MEDICAL HISTORY Diagnosis Date Dyslipidemia Generalized anxiety disorder Anxiety, Generalized Hypertension Mixed hyperlipidemia Hyperlipidemia Obesity Seizures (HCC) Type II or unspecified type diabetes mellitus without mention of complication, not stated as uncontrolled PAST SURGICAL HISTORY Procedure Laterality Date ANESTHESIA ARTHROSCOPIC PROCEDURE ANKLE & FOOT COLONOSCOPY Dr. [facility] NEUROPLASTY &/TRANSPOS MEDIAN NRV CARPAL TUNNE Carpal [...] movements symmetric on the left, CHRIS RUE. Rvhjwv-[id number], yuar-[id number] without dysmetria on the left, CHRIS RLE. 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 Vessel imaging significant for left RENT COLLECTOR P1 occlusion. History of Epilepsy, following with [...] which included preparing to see the patient, [id number] patient care, completing clinical documentation, obtaining and/or reviewing separately obtained history, performing a medically appropriate examination, counseling and educating the patient/family/caregiver, ordering medications, tests, or procedures, communicating with other HCPs (not separately reported), independently interpreting results (not separately reported), and communicating results to the patient/family/caregiver ASMITA Irvin APRN.CNP [facility] [id number] Adriana Shaw MD () [address] [place] [id number] documented in this encounter [facility] 01-30-2025 Note HNO ID: [id number] Author: DODIE IRVIN APRN.CNP Service: ? Author Type: Nurse Practitioner Type: Progress Notes Filed: 01/30/2025 13:40 Note Text: [facility] Established Visit Consultation is requested by: Joe Saravia [facility] [id number] PCP: Adriana Shaw MD ([facility]) [address] [place] [address] CEREBROVASCULAR HISTORY Evangelista Borrego JR is a 59 year old male. Stroke Event Information [facility] 09/22/24-09/29/24 Mr. Evangelista Borrego is a [...] and keep patient flat. Patient transferred to [facility] SDU for further observation and [...] ARTHROSCOPIC PROCEDURE ANKLE AND FOOT COLONOSCOPY Dr. [facility] NEUROPLASTY AND/TRANSPOS MEDIAN NRV CARPAL TUNNE [...] mm, DX: Edema and venous insufficiency Blood-Glucose (more content not included)... [facility] 01-17-2025 Emergency department Note Jorje Charles here to take pt back to SNF. Osmani (medic) gave handoff to EMS crew. All questions answered and paperwork provided. [facility] called and notified of pt returning. Pt clean and dry returning to facility. [facility] 01-17-2025 Emergency department Note Jorje Charles here to take pt back to SNF. Osmani (medic) gave handoff to EMS crew. All questions answered and paperwork provided. [facility] called and notified of pt returning. Pt clean and dry returning to facility. Updated ETA 2130 EMERGENCY DEPARTMENT ENCOUNTER Pt Name: Evangelista Borrego Birthdate 1965 Date of evaluation: 01/17/2025 ED Provider: Devan Kenny DO CHIEF COMPLAINT Chief Complaint Patient presents with Fall Complaint of fall this morning at [facility]. Patient fell in the bathroom hitting head. [...] to the emergency department for fall at alf facility. History of prior CVA, alert and [...] is mild. Fall was apparently witnessed at alf facility Nursing Notes were reviewed. REVIEW OF SYSTEMS 14 systems reviewed and otherwise acutely negative except as in the [place]. 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 Physician EKG interpretation can be found in [facility] RADIOLOGY (Per Emergency Physician): Interpretation per the [...] with a chief complaint of fall at alf facility, reportedly takes a daily baby aspirin, [...] PATIENT REFERRED TO: Nena Pardo DO [address] [address] Schedule an appointment as soon as possible [...] Resource Strain: Low Risk (10/02/2024) Received from [facility] Medical Overall Financial Resource Strain (CARDIA) Difficulty of Paying Living Expenses: Not hard at all Food Insecurity: No Food Insecurity (10/02/2024) Received from [facility] Hunger Vital Sign Worried About Running Out of Food in the Last Year: Never true Ran Out of Food in the Last Year: Never true Recent Concern: Food Insecurity - Food Insecurity Present (09/23/2024) Received from [facility] Hunger Vital Sign Worried About Running Out of Food in the Last Year: Sometimes true Ran Out of Food in the Last Year: Sometimes true Transportation Needs: No Transportation Needs (10/22/2024) Received from [facility] Transportation Source Has lack of transportation [...] No Stress Concern Present (10/23/2024) Received from [facility] [place] [facility] Occupational Health - Occupational Stress Questionnaire Feeling of Stress : Not at all Social Connections: Moderately Isolated (10/02/2024) Received from [facility] Medical Social Connection and Isolation Panel [NHANES] Frequency of Communication with Friends and Family: More than three times a week Frequency of Social Gatherings with Friends and Family: More than three times a week Attends Rastafarian Services: Never Active Member of Clubs or Organizations: No Attends Club or Organization Meetings: Never Marital Status: Intimate Partner Violence: Patient Unable To Answer (09/29/2024) Received from [facility] Medical Domestic Abuse Assessment Do you feel safe in your relationships at home?: Unable to assess Physical Abuse: Unable to assess Verbal Abuse: Unable to assess Housing Stability: Low Risk (10/02/2024) Received from [facility] Housing Stability Vital Sign Unable to Pay for Housing in the Last Year: No Number of Times Moved in the Last Year: 0 Homeless in the Last Year: No Recent Concern: Housing Stability - High Risk (09/23/2024) Received from [facility] Housing Stability Vital Sign Unable to Pay for Housing in the Last Year: Yes Number of Times Moved in the Last Year: 0 Homeless in the Last Year: No Devan Kenny DO 01/17/252005 documented in this encounter [facility] 01-17-2025 Emergency department Note Updated ETA 2129 [facility] 01-17-2025 Physician Emergency department Note EMERGENCY DEPARTMENT ENCOUNTER Pt Name: Evangelista Borrego Birthdate 1965 Date of evaluation: 01/17/2025 ED Provider: Devan Kenny DO CHIEF COMPLAINT Chief Complaint Patient presents with Fall Complaint of fall this morning at [facility]. Patient fell in the bathroom hitting head. [...] to the emergency department for fall at alf facility. History of prior CVA, alert and [...] is mild. Fall was apparently witnessed at alf facility Nursing Notes were reviewed. REVIEW OF SYSTEMS 14 systems reviewed and otherwise acutely negative except as in the [place]. 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 sensation is intact throughout SKIN: no [...] DIFFERENTIAL DIAGNOSIS/MDM: Vitals: Vitals: 01/17/25 1525 01/17/25 192 BP: (!) 193/84 (!) 178/60 BP Location: Left arm Left arm Patient Position: Lying Lying Pulse: 75 62 Resp: 18 16 Temp: 36.9 C (98.5 F) TempSrc: Oral SpO2: 100% 100% The patient presented with a chief complaint of fall at alf facility, reportedly takes a daily baby aspirin, [...] dc PATIENT REFERRED TO: Nena Pardo DO [address] [place] [address] Schedule an appointment as soon as possible [...] Resource Strain: Low Risk (10/02/2024) Received from [facility] Medical Overall Financial Resource Strain (CARDIA) Difficulty of Paying Living Expenses: Not hard at all Food Insecurity: No Food Insecurity (10/02/2024) Received from [facility] Medical Hunger Vital Sign Worried About Running Out of Food in the Last Year: Never true Ran Out of Food in the Last Year: Never true Recent Concern: Food Insecurity - Food Insecurity Present (09/23/2024) Received from [facility] Hunger Vital Sign Worried About Running Out of Food in the Last Year: Sometimes true Ran Out of Food in the Last Year: Sometimes true Transportation Needs: No Transportation Needs (10/22/2024) Received from [facility] Medical SDOH Transportation Source Has lack of transportation kept [...] No Stress Concern Present (10/23/2024) Received from [facility] [place] [facility]ational [facility] - Occupational Stress Questionnaire Feeling of Stress : Not at all Social Connections: Moderately Isolated (10/02/2024) Received from [facility] Medical Social Connection and Isolation Panel [NHANES] Frequency of Communication with Friends and Family: More than three times a week Frequency of Social Gatherings with Friends and Family: More than three times a week Attends Rastafarian Services: Never Active Member of Clubs or Organizations: No Attends Club or Organization Meetings: Never Marital Status: Intimate Partner Violence: Patient Unable To Answer (09/29/2024) Received from [facility] Medical Domestic Abuse Assessment Do you feel safe in your relationships at home?: Unable to assess Physical Abuse: Unable to assess Verbal Abuse: Unable to assess Housing Stability: Low Risk (10/02/2024) Received from [facility] Medical Housing Stability Vital Sign Unable to Pay for Housing in the Last Year: No Number of Times Moved in the Last Year: 0 Homeless in the Last Year: No Recent Concern: Housing Stability - High Risk (09/23/2024) Received from [facility] Housing Stability Vital Sign Unable to Pay for Housing in the Last Year: Yes Number of Times Moved in the Last Year: 0 Homeless in the Last Year: No Devan Kenny DO 01/17/252005 [facility] 12-02-2024 Telephone encounter Note Call to [facility], wants to know if pt is supposed to still be on Lovenox. 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 Please call back 6-230p Monday. Seble Myers RN December 02, 2024 2:50 PM [facility] 12-02-2024 Miscellaneous Notes Call to [facility] [employer], wants to know if pt is supposed to still be on Lovenox. 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 Please call back [phone] Monday. Seble Myers RN December 02, 2024 2:50 PM CV PHONE Name of caller : Bita Relationship to patient : Nurse If not self Will need patient permission to release results or disclose health information with called documented in fyi. Patient identified by Name and Date of . ( Evangelista Borrego JR, 1965). Yes Number to return call [phone] Reason for Call: Patient Question/Update: Nurse from where patient is staying calling with a few questions about Lovenox medication. Please return call at [phone] Thank you calling [facility] [place]. You will receive a return call within 48 hours ( or 2 business days if close to the weekend). If you feel that this is an urgent issue and needs immediate attention, it is recommended that you contact your primary care provider office or proceed to your nearest Urgent Care Center of Emergency Room ED for evaluation/treatment. documented in this encounter [facility] 12-02-2024 Telephone encounter Note CV PHONE Name of caller : Bita Relationship to patient : Nurse If not self Will need patient permission to release results or disclose health information with called documented in fyi. Patient identified by Name and Date of . ( Evangelista Borrego JR, 1965). Yes Number to return call [phone] Reason for Call: Patient Question/Update: Nurse from where patient is staying calling with a few questions about Lovenox medication. Please return call at [phone] Thank you calling [facility] [place]. You will receive a return call within 48 hours ( or 2 business days if close to the weekend). If you feel that this is an urgent issue and needs immediate attention, it is recommended that you contact your primary care provider office or proceed to your nearest Urgent Care Center of Emergency Room ED for evaluation/treatment. [facility] 11-25-2024 Telephone encounter Note Called [facility] @ [phone] Spoke to staff. Relayed providers message below Staff verbalized good understanding No further questions/concerns at this time. Hailey Don LPN [facility] 11-25-2024 Miscellaneous Notes Called [facility] @ [phone] Spoke to staff. Relayed providers message below Staff verbalized good understanding No further questions/concerns at this time. Hailey Don LPN Please let the facility know that I reviewed the blood sugars. To continue current insulin regimen Blaire Shearer MD documented in this encounter [facility] 11-25-2024 Telephone encounter Note Please let the facility know that I reviewed the blood sugars. To continue current insulin regimen Blaire Shearer MD [facility] Work Phone: 11-25-2024 Instructions Blaire Denney MD - 11/25/2024 8:18 AM EDT We will request the records of blood sugars documented in this encounter [facility] 11-25-2024 Note HNO ID: [id number] Author: BLAIRE DENNEY MD Service: ? Author Type: Physician Type: Progress Notes Filed: 11/25/2024 08:24 Note Text: Endocrinology Initial Diabetes Assessment Evangelista Borrego JR is here for a consultation upon the request of Dr. Dunaway regarding: T2DM Documentation supporting sharing your findings and recommendations via the shared medical record or via the mail. PCP is MD Adriana Atwood MD ([facility]) [address] [place] [id number] Date: November 25, 2024 History of Present Illness Evangelista Borrego JR is a 59 year old male with PMH of T2DM, HTN, HLD, CVA, seizures and CHRYSTAL who presents today for evaluation of T2DM Patient lives in [facility]. 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 She has no clinical information about the [...] ARTHROSCOPIC PROCEDURE ANKLE AND FOOT [facility]ONOSCOPY [facility] AND/TRANSPOS MEDIAN NRV CARPAL TUNNE Carpal [...] for this v (more content not included)... [facility] 11-25-2024 History of Presen t illness Narrative Endocrinology Initial Diabetes Assessment Evangelista Borrego JR is here for a consultation upon the request of Dr. Dunaway regarding: T2DM Documentation supporting sharing your findings and recommendations via the shared medical record or via the mail. PCP is MD Adriana Atwood MD ([facility]) [address] [place] [address] Date: November 25, 2024 History of Present Illness Evangelista Borrego JR is a 59 year old male with PMH of T2DM, HTN, HLD, CVA, seizures and CHRYSTAL who presents today for evaluation of T2DM Patient lives in [facility]. 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 She has no clinical information about the [...] ARTHROSCOPIC PROCEDURE ANKLE & FOOT COLONOSCOPY Dr[facility] NEUROPLASTY &/TRANSPOS MEDIAN NRV CARPAL TUNNE Carpal [...] (H) 4.3 - 5.6 % Final Comment: [place] [employer] guidelines indicate that patients with HgbA1c in the range 5.7-6.4% are at increased risk for development of diabetes, and intervention by lifestyle modification may be beneficial. HgbA1c greater or equal to 6.5% is considered diagnostic of diabetes. 03/13/2013 6.7 (H) 4.0 - 6.0 % Final Comment: [place] [employer] guidelines indicate that patients with HgbA1c in the range 5.7-6.4% are at increased risk for development of diabetes, and intervention by lifestyle modification may be beneficial. HgbA1c greater or equal to 6.5% is considered diagnostic of diabetes. 08/03/2012 6.5 (H) 4.0 - 6.0 % Final Comment: [place] [employer] guidelines indicate that patients with HgbA1c in the range 5.7-6.4% are at increased risk for development of diabetes, and intervention by lifestyle modification may be beneficial. HgbA1c greater or equal to 6.5% is considered diagnostic of diabetes. 01/30/2012 7.1 (H) 4.0 - 6.0 % Final Comment: [place] [employer] guidelines indicate that patients with HgbA1c in the range 5.7-6.4% are at increased risk for development of diabetes, and intervention by lifestyle modification may be beneficial. HgbA1c greater or equal to 6.5% is considered diagnostic of diabetes. HBA1C, Mirna Date Value Ref Range Status 08/11/2011 7.4 [...] We have requested the blood sugars from [facility] and will reach back to the patient with medication adjustments Blood work fasting - ALBUMIN/CREATININE RATIO, URINE - THYROID STIMULATING HORMONE - COMPREHENSIVE METABOLIC PANEL - LIPID PANEL, FASTING Blaire Shearer MD documented in this encounter [facility] 10-31-2024 Instructions Dodie Irvin APRN.TUCKER - 10/31/2024 2:10 PM EDT Continue Aspirin daily for secondary stroke prevention. Continue Atorvastatin for secondary stroke prevention and LDL goal below 70. Continue monitoring blood pressure for goal below 130/80. Continue monitoring blood sugar for optimal A1c below 7.0. Continue working with therapy for optimal stroke rehabilitation. Follow up in 3 months to check in on therapy documented in this encounter [facility] 10-31-2024 History of Presen t illness Narrative [facility] Established Visit Consultation is requested by: Joe Zamora [address] [facility] [address] PCP: Adriana Shaw MD ([facility]) [address] [place] [address] CEREBROVASCULAR HISTORY Evangelista Borrego JR is a 59 year old male. Stroke Event Information [facility] 09/22/24-09/29/24 Mr. Evangelista oBrrego is a 59 yo male with a [...] and keep patient flat. Patient transferred to [facility] SDU for further observation and [...] ARTHROSCOPIC PROCEDURE ANKLE & FO[facility] &/TRANSPOS MEDIAN NRV CARPAL TUNNE Carpal [...] movements symmetric on the left, CHRIS RUE. Kzsehn-qg-akdp, [id number] without dysmetria on the left, CHRIS RLE. 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 Vessel imaging significant for left RENT COLLECTOR P1 occlusion. History of Epilepsy, following with [...] which included preparing to see the patient, ohjt-qw-[id number] patient care, completing clinical documentation, obtaining and/or reviewing separately obtained history, performing a medically appropriate examination, counseling and educating the patient/family/caregiver, ordering medications, tests, or procedures, communicating with other HCPs (not separately reported), independently interpreting results (not separately reported), and communicating results to the patient/family/caregiver ASMITA Irvin APRN.TUCKER CC Joe Zamora [address] [facility] [address] Adriana Shaw MD ([facility]) [address] [place] [address] documented in this encounter [facility] 10-31-2024 Note HNO ID: [id number] Author: DODIE IRVIN APRN.CNP Service: ? Author Type: Nurse Practitioner Type: Progress Notes Filed: 10/31/2024 14:18 Note Text: [facility] Established Visit Consultation is requested by: Joe Zamora [address] [facility] [address] PCP: Adriana Shaw MD ([facility]) [address] [place] [address] CEREBROVASCULAR HISTORY Evangelista Borrego JR is a [...] and keep patient flat. Patient transferred to [facility] SDU for further observation and [...] ARTHROSCOPIC PROCEDURE ANKLE AND FOOT [facility] AND/TRANSPOS MEDIAN NRV CARPAL TUNNE [...] Extremities: No edema (more content not included)... [facility] 10-28-2024 Telephone encounter Note S: Nurse spoke with [facility] nurse regarding fall B: Onset of symptoms/concern tonight A: Nay-Nurse from [facility] for a witnessed fall out of [...] Protocols used: Information Only Call - No [id number] [facility] 10-28-2024 Miscellaneous Notes S: Nurse spoke with PSYCHIATRIC nurse regarding fall B: Onset of symptoms/concern tonight A: Nay-Nurse from [facility] for a witnessed fall out of [...] Protocols used: Information Only Call - No [id number] documented in this encounter [facility] 10-02-2024 Telephone encounter Note Recent Visits Date Type Provider Dept 05/02/24 Office Visit Nena Pardo DO [facility] 03/29/24 Office Visit Nena Pardo DO [facility] Showing recent visits within past 365 days and meeting all other requirements Future Appointments Date Type Provider Dept 10/07/24 Appointment DO Gerry [facility] Jorge L Showing future appointments within next [...] 5.0 (H) 03/29/2024 NONHDLCHOLES 135 (H) 03/29/2024 [facility] 10-02-2024 Miscellaneous Notes Recent Visits Date Type Provider Dept 05/02/24 Office Visit DO Gerry Melvin Jorge L 03/29/24 Office Visit DO Gerry [facility] Jorge L Showing recent visits within past 365 days and meeting all other requirements Future Appointments Date Type Provider Dept 10/07/24 Appointment DO [facility]erry [facility] Jorge L Showing future appointments within next [...] 135 (H) 03/29/2024 documented in this encounter [facility] 09-29-2024 Note HNO ID: [id number] Author: VIVIEN MCARTHUR RN Service: Care Management [...] [facility] Admission Date: 09/22/2024 LOS: 7 days Discharge Arrangement Discharge Arrangement: Acute Rehabilitation Facility Services Arranged Medical Services: Other: See Comment (Acute Rehabilitation) Provider Name: Adriana Shaw PCP - General, Family Medicine Since 08/04/2016 Caregiver Assessment Caregiver is ready, willing and able to meet the patient's needs as recommended by the inter-professional team: Yes Name of Caregiver: [facility], Ana [facility] [address] [place] [address] Transportation Arrangements Transportation Arrangements: Ambulance Transportation Agency and Phone #:: [facility] [phone] Date of Trip: 09/29/24 Time of Trip: 1400 Type of Service: BLS Non-emergency Is Patient Medicaid Pending?: No Was transportation financial coverage discussed with family?: Patient Can Vacuum Tester Location: [place] Destination: [facility], [facility] [address] [facility] [address] Financial Care Management Responsibility: None Handoff Communication: Handoff to: Primary Care Physician, Other Caregiver Primary Care Physician Name/Phone: Adriana Shaw - General, Family Medicine Since 08/04/2016 Other Caregiver Name/Phone: [facility], [facility] [address] [facility] [address] Additional Information: Transportation is set with MMT at 2pm Trip # [id number] and facility is aware. RN on Floor is provided with RN Report number, discharge packet is updated to include DC summary and AVS form. Discharge Information Row Name Admission (Current) from 09/22/2024 in [place] [address] Rehab Facility Agency [facility], [facility] [address] [facility] [address] SIGNATURE: Vivien Mcarthur RN PATIENT NAME: Evangelista Borrego JR DATE: September 29, 2024 TIME: 11:34 AM [facility] 09-29-2024 Note HNO ID: [id number] Author: SAADIA MAYES APRN.CNP Service: Neurology Stroke Author Type: Nurse Practitioner [...] following for DM control DC to [facility], precert approved, no beds available yesterday. MEDICATIONS: [...] Score: 19 (09/29/24 0951 : Saadia Mayes, ONIEL.POSTAL TRANSPORTATION CLERK) 19 MENTAL STATUS: Alert, aphasic, patient was [...] encephalomalacia CTA head and neck 09/22/2024: Left RENT COLLECTOR P1 occlusion with distal recanalization MRI brain [...] is also e (more content not included)... [facility] 09-28-2024 Note HNO ID: [id number] Author: OSMANI TORRES MD Service: Neurology Adult [...] brain injury he has been connected to [facility] which has shown no seizures. Otherwise, generalized [...] discussed with Dr Jozef Vergara (epilepsy staff emulsion operator) Osmani Torres MD Epilepsy fellow [facility] 09-28-2024 Note HNO ID: [id number] Author: NANI PERKINS RT(Kelly) Service: Radiology Author Type: Technologist Type: Progress [...] PATIENT PRESENTS WITH AN IMPLANTABLE OR ATTACHED SENIOR ACCOUNTS PAYABLE CLERK: No RADIOLOGY DEPARTMENT: CT; Exam(s) Completed: Brain PERIPHERAL IV DATA: Not applicable SIGNED BY: SEDRICK Schwarz)(CT) September 28, 2024 3:07 PM [facility] 09-28-2024 Note HNO ID: [id number] Author: ZAN KENNEDY RN Service: Care Management [...] to 09/29 @ 2 PM, trip # [id number]. D/C packet located by green chart. CM will continue to follow. Please see Treatment Team for Care Management Weekend/Holiday coverage. SIGNATURE: Zan Kennedy RN PATIENT NAME: Evangelista Borrego JR DATE: September 28, 2024 TIME: 9:20 AM [facility] 09-28-2024 Note HNO ID: [id number] Author: SAADIA MAYES APRN.CNP Service: Neurology Stroke Author Type: Nurse Practitioner [...] set up for tomorrow. DC to [facility], precert approved, no beds available yesterday. MEDICATIONS: [...] Score: 19 (09/28/24 0936 : Saadia Mayes APRN.POSTAL TRANSPORTATION CLERK) 19 MENTAL STATUS: Alert, aphasic, patient was [...] encephalomalacia CTA head and neck 09/22/2024: Left RENT COLLECTOR P1 occlusion with distal recanalization MRI brain [...] is borderline di (more content not included)... [facility] 09-27-2024 Note HNO ID: [id number] Author: HARSH ORTEZ, RN Service: Care Management Author Type: Registered Nurse Type: Care Mgt Progress Note Filed: 09/27/2024 14:49 Note Text: CARE MANAGEMENT WEEKEND PLANNING NOTE DISCHARGE OR POSSIBLE DISCHARGE Date/Time: Thursday 09/28 at 2pm Disposition: Rehab Facility - Precert Obtained: Yes Transport: Mode of Transportation: Ambulance Transportation Agency and Phone #: [facility] [phone] . Date of Trip: 09/28 Type of Service: BLS Non-emergency Is Patient Medicaid Pending: No Discussion of financial coverage occurred with N/A . Can Vacuum Tester Location: [place] Destination: [facility] Financial Care Management Responsibility: None Estimated Charge: N/A Approving Oyster Bed Worker: N/A Other Concerns: N/A Please see Treatment Team for Care Management Weekend/Holiday coverage. Precert approved for [facility]. No beds at facility today. S transport rescheduled for 4pm tomorrow with MMT - Trip# [id number]. CMAs tasked to complete a DC packet for patient tomorrow. Spouse updated. CM will follow. SIGNATURE: Harsh Ortez RN PATIENT NAME: Evangelista Borrego JR DATE: September 27, 2024 TIME: 2:42 PM PAGER/CONTACT #: [phone] [facility] 09-27-2024 Note HNO ID: [id number] Author: JOE ZAMORA PA-C Service: Neurology Stroke Author Type: Physician Liner Helper Type: Progress Notes Filed: 09/27/2024 14:42 Note [...] following for DM control DC to [facility], have insurance precert, no bed today. DC [...] encephalomalacia CTA head and neck 09/22/2024: Left RENT COLLECTOR P1 occlusion with distal recanalization MRI brain [...] was recorded f (more content not included)... [facility] 09-26-2024 Note HNO ID: [id number] Author: HARSH ORTEZ, RN Service: Care Management [...] Will Call thru Mon 09/30 - Trip# [id number] Will need accepting facility, precert and transport arranged. CM will follow. Update 4:25pm: Patient has been accepted by [facility] and precert will be submitted. [facility] tasked. Update 5:15: BLS transport scheduled for 4pm tomorrow with MMT - Trip# [id number]. CMAs tasked to complete a DC packet for patient tomorrow. Spouse updated. SIGNATURE: Harsh Ortez RN PATIENT NAME: Evangelista Borrego JR DATE: September 26, 2024 TIME: 1:47 PM [facility] 09-26-2024 Note HNO ID: [id number] Author: JOE ZAMORA PA-C Service: Neurology Stroke Author Type: Physician Liner Helper Type: Progress Notes Filed: 09/26/2024 10:15 Note Text: Documentation Query 09/23/24 MRI Brain ?True restricted diffusion at anterior aspect of left thalamus AND anterior aspect of posterior limb of left internal capsule with T2 hyperintensity AND local mass effect with indentation on third ventricle without obstructive hydrocephalus or abnormal susceptibility compatible with nonhemorrhagic acute infarct in RENT COLLECTOR perforating vessel distribution (correlate with history AND CTA results). ? 09/24/24 PMANDR ?presented with RHP and dysarthria to [facility] ED on 09/22. LKW 9PM 09/21. He was found to have a left P1 occlusion of unknown chronicity and encephalomalacia in left paramedian occipital lobe on imaging. Transferred to [facility] SDU for further workup and observation.? Please clarify diagnosis associated with the clinical indicators Cerebral edema - not clinically significant Joe Zamora PA-C September 26, 2024 10:15 AM Pager [phone] [facility] 09-26-2024 Note HNO ID: [id number] Author: JOE ZAMORA PA-C Service: Neurology Stroke Author Type: Physician Liner Helper Type: Progress Notes Filed: 09/26/2024 10:15 Note [...] for 4 pm pending new precert to [place]. MEDICATIONS: Current medications and allergies reviewed. [...] encephalomalacia CTA head and neck 09/22/2024: Left RENT COLLECTOR P1 occlusion with distal recanalization MRI brain [...] monitoring 09/24/2024: Impress (more content not included)... [facility] 09-25-2024 Note HNO ID: [id number] Author: HARSH ORTEZ RN Service: Care Management Author Type: Registered Nurse Type: Care Mgt Progress Note Filed: 09/25/2024 14:35 Note Text: CARE MANAGEMENT PROGRESS NOTE SERVICE DATE: 09/25/2024 SERVICE TIME: 1:45 PM LOS: 3 days CM Update Skilled for AR but spouse chose [facility] SNF. Precert was submitted this morning. [facility] tasked to complete 7000. Attestation progress note is signed and anticipated discharge order placed. [facility] tasked to arranged BLS transport for tomorrow afternoon and to complete a DC packet. CM will follow. Update 2pm: Notified by stroke team that they discussed with spouse that patient would benefit from AR and she is now in agreement. Will call spouse for AR FOC. Update 2:20pm: MMT TRANSPORT SCHEDULED FOR 09/26/24 AT 4:00PM, TRIP# [id number]. *Will need to be updated to new [place] location once there is an accepting facility. Update 2:35pm: [facility] with [facility], and to send a referral to [facility]. SIGNATURE: Harsh Ortez RN PATIENT NAME: Evangelista Borrego JR DATE: September 25, 2024 TIME: 1:44 PM [facility] 09-25-2024 Note HNO ID: [id number] Author: FABIANA DUNAWAY MD, PhD Service: Neurology Stroke Author Type: Physician Type: Progress Notes Filed: 09/26/2024 05:05 Note Text: NEURO STROKE PROGRESS NOTE SERVICE DATE: 09/25/2024 SERVICE TIME: 7:15 AM Subjective Patient Summary: Mr. Evangelista Borrego is a 59 yo male with a PMH significant for T2DM, LYLE, HLD, seizures on phenytoin who presented with RHP and dysarthria to [facility] ED on 09/22. LKW 9PM 09/21. He [...] Daily Rounding Date: 09/25/24 Daily Rounding Time: 802 Stroke Mechanism Daily NIHSS Score: 13 Assessment [...] in self-care ab (more content not included)... [facility] 09-24-2024 Note HNO ID: [id number] Author: CLAUDE KOVACS DO Service: Care Management [...] 2024 TIME: 3:59 PM Claude Kovacs DO [facility] 09-24-2024 Note HNO ID: [id number] Author: HARSH ORTEZ, RN Service: Care Management Author Type: Registered Nurse Type: Care Mgt Progress Note Filed: 09/24/2024 14:36 Note Text: CARE MANAGEMENT PROGRESS NOTE SERVICE DATE: 09/24/2024 SERVICE TIME: 2:31 PM LOS: 2 days CM Update Skilled for AR. Called and spoke with patient's Spouse who requested a referral be sent to [facility]. Explained the difference in LOC between SNF and AR. Spouse verbalized understanding and wishes to proceed with SNF referral. [facility] and send [facility]. Await response. Anticipate medically ready for discharge tomorrow. Will need: accepting facility, precert and transport arranged. Oxygen 2L NC. Soft and Bite-Sized with Mildly Thick/[place] Thick liquids. CM will follow. SIGNATURE: Harsh Ortez RN PATIENT NAME: Evangelista Borrego JR DATE: September 24, 2024 TIME: 2:31 PM [facility] 09-24-2024 Note HNO ID: [id number] Author: FABIANA DUNAWAY MD, PhD Service: Neurology Stroke Author Type: Physician Type: Progress Notes Filed: 09/25/2024 05:50 Note Text: NEURO STROKE PROGRESS NOTE SERVICE DATE: 09/24/2024 SERVICE TIME: 7:15 AM Subjective Patient Summary: Mr. Evangelista Borrego is a 59 yo male with a PMH significant for T2DM, LYLE, HLD, seizures on phenytoin who presented with RHP and dysarthria to [facility] on 09/22. LKW 9PM 09/21. He was found to have a left P1 occlusion of unknown chronicity and encephalomalacia in left paramedian occipital lobe on imaging. INTERVAL HISTORY: Overnight events: worsening of R sided weakness and aphasia and dysarthria last evening, BEM negative, MRI as below Endocrinology consulted, recs placed EDGER OPERATOR: no thin liquids PT/OT rec AR, PMR [...] risk for falls (more content not included)... [facility] 09-23-2024 Note HNO ID: [id number] Author: HARSH ORTEZ, RN Service: Care Management Author Type: Registered Nurse Type: Care Mgt Initial Assessment Filed: 09/23/2024 16:34 Note Text: CARE MANAGEMENT: ASSESSMENT AND DISCHARGE PLAN SERVICE DATE: September 23, 2024 SERVICE TIME: 4:26 PM PCP: Adriana Shaw MD Primary Contact: Extended Emergency Contact Information Primary Emergency Contact: Arelis Borrego Mobile Relation: Spouse Secondary Emergency Contact: VanessaEvangelista Mobile Relation: Son Admission Status: Inpatient Insurance Provider: [employer] Discharge Planning requested by: Per Department Practice Potential Transition Plans Rehab Facility Advance Directives Current Advance Directive: None It Systems Analyst Consultant Attempted to Assist with AD Completion: No [...] Patient Goal(s): Be able to go home [place] Choice Explained: [place] of Choice Given: Yes Reason Not Given: [...] first level. 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 No prior DME, home oxygen or CPAP use. Patient is currently unemployed (trying to get disability), manages his own medications and does not drive d/t history of epilepsy. Son provides transportation. PT has skilled for AR. OT/PMANDR pending. Discussed with Spouse, and a facility list was sent to her via text at: [phone]. Await choices. Anticipate medically ready for discharge tomorrow. Will need: accepting facility, precert and transport arranged. CM will follow. SIGNATURE: Harsh Ortez RN PATIENT NAME: Evangelista Borrego JR DATE: September 23, 2024 TIME: 4:25 PM [facility] 09-23-2024 Note HNO ID: [id number] Author: JB STAPLES ? Service: Pharmacy Author Type: Automobile Relocation Engineer Type: Plan of Care Filed: 09/23/2024 15:36 Note Text: Insurance investigation completed Patient has active prescription insurance: Yes - Patient's insurance is in-network with [facility] Insurance loaded into [place]: Yes Test claim was completed to verify insurance is active: Successful Any questions, please reach out to your medication hospice spiritual care coordinator. [facility] 09-23-2024 Note HNO ID: [id number] Author: NANI MCDANIEL RN Service: Care Management Author Type: Registered Nurse Type: Care Mgt Progress Note Filed: 09/23/2024 12:39 Note Text: CARE MANAGEMENT PROGRESS NOTE SERVICE DATE: 09/23/2024 SERVICE TIME: 1236 LOS: 1 day Needs Prior to Discharge: To Be Determined, OT/PT Evaluation, Patient/Family Current Advance Directive: None It Systems Analyst Consultant Attempted to Assist with AD Completion: Yes Action: Other: See Comment (Unable to get in contact with pt..) Caregiver is ready, willing and able to meet the patient's needs as recommended by the inter-professional team: Other: See Comment (TBD) [place] of [place] Given: No Reason Not Given: [...] DATE: September 23, 2024 TIME: 12:36 PM [facility] 09-23-2024 Note HNO ID: [id number] Author: LASHAY TSE RPh Service: Pharmacy Author Type: Pharmacist Type: Plan of Care Filed: 09/23/2024 16:03 Note Text: PHARMACY MEDICATION REVIEW Patient Name: Evangelista Borrego JR : 1965 The following medications were updated within the EMBROIDERY PATTERNMAKER medication list: Medications ADDED to EMBROIDERY PATTERNMAKER medication list atorvastatin (LIPITOR) 20 mg tablet Take 20 mg by mouth once daily. Medications CHANGED on EMBROIDERY PATTERNMAKER medication list gabapentin (NEURONTIN) 600 mg tablet [...] 1 CAPSULE EVERY EVENING Medications REMOVED from EMBROIDERY PATTERNMAKER medication list cyclobenzaprine (FLEXERIL) 10 mg tablet [...] office visits, medication list appears consistent. Per EFRAIN Dunn, She called earlier for an update and [...] Yes Completed by: Lashay Tse RPh All EMBROIDERY PATTERNMAKER medications addressed by LIP Patient interested in Bedside Delivery Services or using OP Pharmacy at discharge? Unable to assess Preferred outpatient pharmacy: [facility] - [place] [address] [address] [facility] [phone] e- [id number] [place] [address] - [address] [facility] - [phone] [facility] [place] [phone] e- [id number] [place], [place] [address] - [address] [facility] [phone] Allergies: No Known Allergies Prior to [...] (Mild Pain (1-3 (more content not included)... [facility] 09-22-2024 Note Exam Date Time Procedure Performing Provider Status 09/22/24 7:09 PM XR Chest 1 View CHON YATES MD; Au th (Verified) [id number] ORIGINAL EXAMINATION: ONE XRAY VIEW OF THE [...] Date: 09/22/2024 7:23:01 PM Ordering Provider: CASSIE [facility]03-02-2025 NoteHNO ID: [id number] Author: JOSE ARANGO MD Service: ? Author Type: Fellow Type: Progress Notes Filed: 09/22/2024 19:32 Note Text: Stroke Neuro Misc Evangelista Borrego Jr. T2DM, seizures on phenytoin, HLD who is in the [facility] ED. LKW 9 pm 09/21 dropped off [...] Jose Arango MD Stroke Fellow Staff: [facility] History of Present illness Narrative* Jose Arango MD - 09/22/2024 7:09 PM EST Stroke Neuro Misc Evangelista Borrego Jr. T2DM, seizures on phenytoin, HLD who is in the [facility] ED. LKW 9 pm 09/21 dropped off [...] Fellow Staff: Dr. Corral documented in [facility] Note* Exam Date Time Procedure Performing Provider Status 09/22/24 7:[address] Angiography Neck w/ Contrast MARINA VÁZQUEZ DO; Auth (Verified) [id number] ORIGINAL EXAMINATION: CTA OF THE NECK 09/22/2024 [...] 09/22/2024 7:07:44 PM Ordering Provider: CASSIE SMITH [facility]03-02-2025 Note* Exam Date Time Procedure Performing Provider Status 09/22/24 6:50 PM EKG [ED AOH] - CV CASSIE SMITH MD; [facility] (Verified) ECG Final Report Sinus rhythm Nonspecific IVCD with LAD Left ventricular hypertrophy Inferior infarct, old Electronic Signature: CASSIE SMITH MD 09/22/2024 18:53:55 [facility]03-02-2025 Note* Exam Date Time Procedure Performing Provider Status 09/22/24 6:[address] Angiography Head w/ Contrast CHON BROWN MD; Auth (Verified) [id number] ORIGINAL EXAMINATION: CTA OF THE HEAD WITH [...] 09/22/2024 6:57:43 PM Ordering Provider: CASSIE SMITH [facility]03-02-2025 Note* Exam Date Time Procedure Performing Provider Status 09/22/24 6:[address] Head or Brain w/o Contrast CHON YATES MD; Modified [id number] ADDENDUM ADDENDUM: After review of CTA of the head, given left posterior cerebral artery large vessel occlusion, the transcortical hypodensity in the left paramedian occipital lobe is strictly age indeterminate. Changes of this report, as well as communication of the left RENT COLLECTOR P1 segment occlusion, was communicated to Dr. [...] Date: 09/22/2024 6:46:32 PM Ordering Provider: CASSIE [facility]01-07-2025 Telephone encounter Note* Telephone Encounter - Ashely Thakur - 07/30/2024 [...] of last refill (see medication tab): 03/29/2024 [facility] [id number] Miscellaneous Notes* Telephone Encounter - Ashely Thakur [...] (see medication tab): 03/29/2024 documented in this encounterSSelect [facility], [id number] Telephone encounter Note* Telephone Encounter - Kimbrely BobGEMA - 07/30/2024 3:19 PM EST Recent Visits Date Type Provider Dept 05/02/24 Office Visit Nena Pardo, DO [facility] 03/29/24 Office Visit Nena Pardo, DO [facility] Showing recent visits within past 365 days and meeting all other requirements Future Appointments Date Type Provider Dept 08/08/24 Appointment Nena Pardo, DO [facility] Showing future appointments within next 90 [...] Most recent labs completed in chart? N/A [facility] [id number] Miscellaneous Notes* Telephone Encounter - Kimberly Bob GEMA - 07/30/2024 3:19 PM EST Recent Visits Date Type Provider Dept 05/02/24 Office Visit Nena Pardo, DO [facility] 03/29/24 Office Visit Nena Pardo DO [facility] Showing recent visits within past 365 days and meeting all other requirements Future Appointments Date Type Provider Dept 08/08/24 Appointment Nena Pardo DO [facility] Showing future appointments within next 90 [...] completed in chart? N/A documented in this [facility]10-10-2024 History of Present illness Narrative* Nena Pardo DO - 05/02/2024 3:40 PM EDT Images from the original note were not included. [facility] - [address] [facility] [address] Visit type: Established Patient Reason [...] 30 min Stress: Stress Concern Present (04/03/2024) [employer] - Occupational Stress Questionnaire Feeling of Stress : To some extent Social Connections: Moderately Isolated (04/03/2024) Social Connection and Isolation Panel [NHANES] Frequency of Communication with Friends and Family: Once a week Frequency of Social Gatherings with Friends and Family: Never Attends Rastafarian Services: More than 4 times per year [...] DO 05/02/2024 3:36 PM documented in this [facility]09-20-2024 Telephone encounter Note* Telephone Encounter - Chiquita Paulino RN - 04/12/2024 1:37 PM EDT (2nd attempt) Called today to schedule screening colonoscopy (surveillance program) Left message to call the screening program at [phone] [address]Lpnwmi75-65-0507 Miscellaneous Notes* Telephone Encounter - Chiquita Paulino RN - 04/12/2024 1:37 PM EDT (2nd attempt) Called today to schedule screening colonoscopy (surveillance program) Left message to call the screening program at [phone] * Telephone Encounter - Chiquita Paulino RN - 04/09/2024 1:37 PM EDT Screening Colonoscopy (Screening/surveillance program) Called pt today to schedule colonoscopy Left message to call the screening program at [phone] documented in this encounterSSelect Medical Special[facility], IncUibrnj90-95-6013 Telephone encounter Note* Telephone Encounter - Chiquita Paulino RN - 04/09/2024 1:37 PM EDT Screening Colonoscopy (Screening/surveillance program) Called pt today to schedule colonoscopy Left message to call the screening program at [phone] [facility] FoundationHjmtrx25-11-7571 Telephone encounter Note* Telephone Encounter - Ciara Glover MA - 04/04/2024 9:54 AM EDT Scheduled [address]Uhnfjz44-44-4038 Miscellaneous Notes* Telephone Encounter - Ciara Glover [...] better blood sugar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
== END | disposition home or self-care (01) ==
LOC: OLS.SANC 05:00
PROVIDERS: PCP Family Medicine; Visit Provider Internal Medicine
DX: E11.9 Type 2 diabetes mellitus without complications (principal)
CPT/HCPCS: 36415; 83036

== ENCOUNTER → 2025-03-26 | Outpatient (REF) | payer MEDICAID, SELFPAY ==
[2025-03-26 07:41] LABS: Hematocrit 40.3 % (40-54); Hemoglobin 14.6 g/dL (13.0-16.5); Mean Corp Hgb Conc 36.2 g/dL (32-36); Mean Corpuscular Volume 82.1 fL (80-94); Mean Platelet Vol. 10.2 fl (6.2-12.0); Platelet Count 283 K/mm3 (150-450); RBC Distribution Width CV 13.2 % (11.6-14.6); RBC Distribution Width SD 38.8 fl (35.1-43.9); Red Blood Count 4.91 M/mm3 (4.6-6.2); White Blood Count 7.4 K/mm3 (4.4-11.0)
[2025-03-26 07:55] LABS: Anion Gap 10 (5-15); BUN 10 mg/dL (4-19); BUN/Creat Ratio 11.5 RATIO (10-20); Calcium,Total 9.1 mg/dL (7.6-11.0); Carbon Dioxide 23.3 mmol/L (21.0-32.0); Chloride 107 mmol/L (98-108); Glucose 120 mg/dL (70-99); Potassium 3.8 mmol/L (3.3-5.1)
== END | disposition home or self-care (01) ==
LOC: OLS.SANC 05:00
PROVIDERS: PCP Family Medicine; Visit Provider Internal Medicine
DX: I10 Essential (primary) hypertension (principal); E78.5 Hyperlipidemia, unspecified
CPT/HCPCS: 36415; 80048; 85027

== ENCOUNTER → 2025-06-25 05:00 | Outpatient (REF) | payer MEDICAID, SELFPAY ==
--- OUTSIDE RECORDS SUMMARY | 2025-06-25 04:38 | XMS RPT_ITS | CCD ---
Author Organization [facility] Care Team Providers Care Driver Guide Name Role Phone Unavailable Primary Care Provider [...] Shaw Primary Care Provider [phone] CATHRYN ROBISN Attending Unavailable WALKER LEONARD MD Primary Care Unavailab ZAIRA Mendez Attending Unavailable Cass More MD Primary Care Provider Nena Pardo DO Primary Care Provider [phone] Adriana Shaw Primary Care Provider [phone] CASSIE SMITH MD Attending Unavailable WALKER LEONARD MD Primary Care Unavailab NENA Xiong Primary Care Unavailable DEVAN KENNY Attending Unavailable NENA PARDO Attending Unavailable NENA PARDO Primary Care Unavailable NENA PARDO Attending Unavailable CASS MORE Primary Care Unavailable BLAIRE DENNEY Attending Unavailab FABIANA Sanderson Referring Unavailable ADRIANA SHAW Primary Care Unavailable DODIE IRVIN Attending Unavailable DODIE IRVIN Referring Unavailable ADRIANA SHAW Primary Care Unavailable MEGAN CORRAL Admitting Unavailable CASSIE SMITH Referring Unavailab le COLIN, ADRIANA CONG Primary Care Unavailable FABIANA DUNAWAY Attending Unavailable COLIN, ADRIANA GAR Primary Care Unavailable KAROLINE GARCIA Admitting Unavailable KAROLINE GARCIA Attending Unavailable PEACE SMYTH Consulting UnavailDODIE Samson Attending Unavailable ANDREW GALARZA Referring Unavailable COLIN, ADRIANA GAR Primary Care Unavailable Milton GIORDANO, Dr. Olman Mendoza Primary Care Provider Frank Liriano MD Attending Provider Unava ilable Denny Kwon Attending Provider Unavailab Dr. Olman Finn DO Primary Care Physician Denny Kwon Attending Physician UnavailDenny Anguiano Attending Unavailable Olman Rose Primary Care Unavailable Denny Kwon Attending Unavailable Olman Rose Primary Care Unavailable Frank Norman Attending Unavail able Olman Rose Primary Care Unavailable Denny Kwon Attending Unavailable Olman Rose Primary Care Unavailable Medications Current Medications Medication Drug Class(es) Dates Sig (Normalized) Sig (Original) [id number] 200 actuat albuterol 0.09 mg/actuat metered dose inhaler (4 sources) beta2-Adrenergic Agonist Start: 05-17-2019 take 1 puff(s) by inhalation every six hours Albuterol Sulfate Active 2 PUFF INHALATION EVERY 6 HOURS 8.5 May 17, 2019 2:01pm Start: 05-17-2019 End: 06-12-2019 albuterol (PROVENTIL) (2.5 M G/3ML) [...] Comment on above: Take 1 capsule by [facility] every 8 hours as [...] 20-30 mm, DX: Edema and venous insufficiency cyclobenzaprine hydrochloride 10 mg oral tablet (8 sources) Muscle Relaxant Start: 2 End: 2 take 1 tablet by mouth three times daily as needed for muscle spasms Comment on above: Take 10 mg by mouth three times daily as needed. for Muscle Spasm Daily Multiple Vitamins (3 sources) Start: 5 take 1 tablet by mouth once daily Daily Multiple Vitamins Dose = 1 tab(s), Oral, qDay, 0 Refill(s) Start Date: 06/09/15 Status: Ordered Repeat number: 1 Start: 06-09-2015 take 1 tablet by ana maria once daily Daily Multiple Vitamins Dose = [...] 2022 2:44pm Start: 04-06-2021 End: 07-06-2021 take 1 capsule by mouth twice daily Gabapentin 100 mg capsule Discontinued 100 mg PO TWICE A DAY April 06, 2021 12:00am July 06, 2021 10:47am Comment on above: Take 600 mg by mouth . glucagon (rdna) 1 mg injection (1 source) Antihypoglycemic Agent Start: 06-12-20 take 1 mL intravenous route every hour 1 mg, Intramuscular, PRN, Low blood sugar, Blood glucose less than 70 mg/dL and patient NOT ALERT or NPO and does not have IV access., Starting Mon06/12/19 at 1959 After administration, attempt intravenous access and start [...] 1958 losartan potassium 25 mg oral tablet (14 sources) Angiotensin 2 Receptor Swapna Start: 09-29-2024 take 3 tablets by mouth once daily losartan (COZAAR) 25 mg tablet Take 3 tablets by mouth once daily. 270 tablet 09/29/2024 Active Start: 08-14-2019 End: 07-06-2021 take 1 tablet by mouth once daily Losartan 100 mg tablet Discontinued 100 mg PO DAILY 90 3 August 14, 2019 2:56pm July 06, 2021 [...] mg tablet exte nded release 24 hr Discontinued 1500 mg PO EVERY EVENING 180 3 September 13, 2021 2:38pm June 08, 2022 3:52pm Start: 09-29-2013 metFORMIN 500 mg oral tablet [...] mg/actuation nasal spray (NARCAN) (6 sources) Start: naloxone 4 mg/actuation nasal spray (NARCAN) 10/23/2024 Active 2 ml ondansetron 2 mg/ml injection (1 source) Serotonin-3 Receptor Antagonist Start: 9 4 mg, Intravenous, EVERY 6 HOURS PRN, Nausea, Starting Mon06/12/19 at 1959 OXcarbazepine 150 mg oral tablet (20 sources) Anti-epileptic Agent Start: End: 5 take 1 tablet by mouth twice daily OXcarbazepine (Trileptal) 150 MG tablet Indications: Intermittent explosive disorder TAKE 1 TABLET BY MOUTH 2 TIMES DAILY 180 tablet 1 07/30/2024 Active Start: 11-04-2013 End: 03-29-2024 take 1 tablet by mouth twice daily Oxcarbazepine (Trileptal) 600 mg tablet Discontinued 600 mg PO TWICE A DAY 180 3 January 21, 2022 4:42pm June 08, 2022 3:52pm Comment on above: Take [address] [facility] twice daily. phenytoin sodium 100 mg extended [...] take 5 capsules by mouth once daily Start: 08-03-2022 End: 09-07-2022 take 2 capsules by mouth twice daily Phenytoin Sodium Extended 100 mg capsule Discontinued 200 mg PO TWICE A DAY 180 1 August 03, 2022 3:58pm September 07, 2022 2:44pm Start: 10-05-2021 End: 08-03-2022 take 1 capsule by mouth twice daily Phenytoin Sodium Extended 200 mg capsule Discontinued 200 mg PO TWICE A DAY 180 1 May 19, 2022 12:06pm June 08, 2022 3:52pm Start: 06-13-2019 End: 10-05-2021 take 1 capsule [...] chloride 9 mg/ml injection (3 sources) Start: 06-19-2022 sodium chloride flush 0.9 % injection 10 [...] acarbose 50 mg oral tablet (1 source) alpha-Glucosidas e Inhibitor Start: 04-21-2016 End: 02-14-2022 acarbose (PRECOSE) 50 mg tablet baclofen 10 mg oral tablet (9 sources) gamma-Aminobutyr ic Acid-ergic Agonist Start: 07-13-2020 End: 09-09-2021 take 1 tablet by mouth at bedtime as needed for muscle spasms Baclofen 10 mg tablet Discontinued 10 mg PO AT BEDTIME as needed for muscle spasm 30 November 24, 2020 9:06am September 09, 2021 3:54pm Blood Pressure Monitor kit (2 sources) Start: 05-17-2019 End: 01-04-2022 Blood Pressure Monitor kit Discontinued 0 .ROUTE .MEDSUPPLY 1 0 May 17, 2019 12:00am January 04, 2022 2:41pm Essential (primary) hypertension Check blood pressure daily for hypertension I10 0.65 ml exenatide 3.08 mg/ml pen injector [...] Microspheres (Bydureon) 2 mg/0.65 mL pen injector (10 sources) Start: 09-05-2019 End: 07-06-2021 Exenatide Microspheres [...] 2018 3:30pm fenofibrate 67 mg oral capsule (4 sources) Peroxisome Proliferator Receptor alpha Agonist Start: 02-22-2019 End: 05-17-2019 take 1 capsule by mouth once daily Fenofibrate Micronized 67 mg capsule Discontinued 67 mg PO DAILY 30 February 22, 2019 12:00am May 17, 2019 1:46pm Start: 06-22-2016 End: [...] CLEANUP) icosapent ethyl 500 mg oral capsule (3 sources) Start: 05-04-2021 End: 07-06-2021 Icosapent Ethyl (Vascepa) 0.5 gram capsule Discontinued 2 g PO TWICE A DAY 720 May 04, 2021 12:00am July 06, 2021 10:48am iopamidol (ISOVUE-370) 76 % injection 60 mL (1 source) Start: 01-09-2022 End: 01-09-2022 iopamidol (ISOVUE-370) 76 % injection 60 mL 1 ml ketorolac tromethamine 15 mg/ml cartridge (3 sources) Nonsteroidal Anti-inflammatory Drug, Cyclooxygenase Inhibitor Start: 05-08-2023 End: 05-08-2023 ketorolac (Toradol) injection 15 mg Start: 01-09-2022 End: 01-09-2022 ketorolac (TORADOL) injectio n 15 mg meclizine hydrochloride 25 mg oral tablet (3 sources) Antiemetic Start: 01-15-2020 End: 04-15-2020 take 1 tablet by mouth three times daily as needed for dizziness Meclizine 25 mg tablet Discontinued 25 mg PO THREE TIMES A DAY as needed for dizziness 60 0 January 15, 2020 12:00am April 15, 2020 11:18am meloxicam 15 mg [...] Take with food. omega-3 acid ethyl esters (residential) 1000 mg oral capsule (1 source) Start: 06-21-2016 End: 02-14-2022 omega-3 acid ethyl esters (LOVAZA) 1 gram capsule 2 ml orphenadrine citrate 30 mg/ml injection (1 source) Muscle Relaxant Start: 01-09-2022 End: 01-09-2022 orphenadrine (NORFLEX) injection 60 mg rosuvastatin calcium 10 mg oral tablet (4 sources) HMG-CoA Reductase Inhibitor Start: 02-22-2019 End: 05-17-2019 take 1 tablet by mouth once daily Rosuvastatin 10 mg tablet Discontinued 10 mg PO DAILY 30 2 February 22, 2019 12:00am May 17, 2019 1:46pm Start: 07-20-2016 End: [...] 5 Resolved: 5 09-22-2024 Chronic Anxiety disorders (17 sources) Anxiety; Translations: [Anxiety disorder, unspecified] Onset: [...] 9 Resolved: 5 06-13-2019 Chronic Esophageal disorders (4 sources) Gastroesophageal reflux disease; Translations: [Gastro-esophageal reflux disease without esophagitis] Chronic Essential hypertension (18 sources) Hypertensive disorder; Translations: [Essential (primary) hypertension] Onset: 4 05-02-2024 Chronic Impulse control disorders, NEC (5 sources) Intermittent explosive disorder; Translations: [Intermittent explosive disorder] Onset: 4 03-29-2024 Chronic Late effects of cerebrovascular disease (7 sources) Sequelae of cerebral infarction; 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] Onset: 5 10-31-2024 Chronic Other aftercare (1 source) Other termite control servicer (current) drug therapy; Translations: [Other retirement (current) drug therapy] Onset: Episodic Other connective tissue disease (2 sources) Plantar fasciitis; Translations: [Plantar fascial fibromatosis] 01-11-2021 Episodic Other connective tissue disease (3 sources) Foot pain; Translations: [Pain in unspecified foot] 12-16-2020 Episodic Other connective tissue disease (1 source) Pain in unspecified foot; Translations: [Pain in limb] Episodic Other connective tissue disease (2 sources) Peripheral neuropathic pain; Translations: [Neuralgia and neuritis, unspecified] 05-08-2023 Episodic Other connective tissue disease (1 source) Bilateral plantar fasciitis; Translations: [Plantar fascial fibromatosis] 01-11-2021 Episodic Other gastrointestinal disorders (2 sources) Ascites; Translations: [Other ascites] 01-04-2022 Episodic Other lower respiratory disease (1 source) Cough; Translations: [Acute cough] Episodic Other lower respiratory disease (1 source) Cough; Translations: [Acute cough] 02-14-2022 Episodic Other nervous system disorders (3 sources) Carpal tunnel syndrome; Translations: [Carpal tunnel [...] Onset: 2 Episodic Other non-traumatic joint disorders (3 sources) Hip pain; Translations: [Pain in right hip] 09-09-2021 Episodic Other non-traumatic joint disorders (2 sources) Pain in right hip; Translations: [Pain in joint, pelvic region and thigh] Episodic Other nutritional; endocrine; and metabolic disorders (11 sources) Body mass index 40+ - severely obese; Translations: [Morbid (severe) obesity due to excess calories] Onset: 5 09-26-2024 Chronic Other nutritional; endocrine; and metabolic disorders (2 sources) Morbid (severe) obesity due to excess calories; Translations: [Morbid obesity] Onset: 5 Chronic Residual codes; unclassified (14 sources) Sleep apnea; Translations: [Sleep apnea, unspecified] Onset: 3 07-19-2021 Chronic Residual codes; unclassified (6 sources) Breathing-related sleep disorder; Translations: [Sleep apnea, unspecified] Onset: 5 10-27-2024 Chronic Residual codes; unclassified (1 source) Obstructive sleep apnea (adult) (pediatric); Translations: [CHRYSTAL (obstructive sleep apnea)] Onset: Chronic Spondylosis; intervertebral disc disorders; other back problems (19 sources) Lumbar radiculopathy; Translations: [Radiculopathy, lumbar region] Onset: 2 Episodic Suicide and intentional self-inflicted injury (3 sources) Suicide attempt ; Translations: [Suicide attempt, [...] aftercare (7 sources) Insulin dose changed; Translations: [director long term care (current) use of insulin] Onset: 09-28-2024 09-28-2024 [...] Test Name Value Interpretation Reference Range Facility Anion gap in Serum or Plasma Ordered By: Denny Buckley on 03-26-2025 Anion gap [Moles/Vol] 10 mmol/L 12-05 [facility] BUN/creatinine ratioOrdered By: Denny Buckley on 03-26-2025 Urea nitrogen/Creatinine [Mass ratio] 11.5 mg/mg 05-12 [facility] Basic Metabolic Profile (BMP )on 03-26-2025 BUN/CRE 11.5 RATIO Normal 05-12 [facility] Comment on above: Order Comment: 102-1 Performed By: #### L 500.2500, L100.0500 #### [facility] [address] [place], [address] Calcium [Mass/Vol] 9.1 mg/dL Normal 7.6-11.0 [facility] Comment on above: Order Comment: 102-1 Performed By: #### L 500.2500, L100.0500 #### [facility] [address] [place], [address] Chloride [Moles/Vol] 107 mmol/L Normal 98-108 [facility] Comment on above: Order Comment: 102-1 Performed By: #### L 500.2500, L100.0500 #### [facility] [address] [place], [address] CO2 [Moles/Vol] 23.3 mmol/L Normal 21.0-32.0 [facility] Comment on above: Order Comment: 102-1 Performed By: #### L 500.2500, L100.0500 #### [facility] [address] [place], [address] Creatinine [Mass/Vol] 0.84 mg/dL Normal 0.70-1.20 [facility] Comment on above: Order Comment: 102-1 Performed By: #### L 500.2500, L100.0500 #### [facility] [address] [place], [address] GAP 10 Normal 5-15 [facility] Comment on above: Order Comment: 102-1 Performed By: #### L 500.2500, L100.0500 #### [facility] [address] [place], [address] GFR/1.73 sq M.predicted among non-blacks MDRD (S/P/Bld) [Vol rate/Area] 101 mL/min/{1.73_m2} Normal >60 [facility] Comment on above: Order Comment: 102-1 Result Comment: mL/m in/1.73m2 CKD-EPI Creatinine Equation (2020) Performed By: #### L 500.2500, L100.0500 #### [facility] [address] [place], [address] Glucose [Mass/Vol] 120 mg/dL High 70-99 [facility] Comment on above: Order Comment: 102-1 Performed By: #### L 500.2500, L100.0500 #### [facility] [address] [place], [address] Potassium [Moles/Vol] 3.8 mmol/L Normal 3.3-5.1 [facility] Comment on above: Order Comment: 102-1 Performed By: #### L 500.2500, L100.0500 #### [facility] [address] [place], [address] Sodium [Moles/Vol] 141 mmol/L Normal 133-145 [facility] Comment on above: Order Comment: 102-1 Performed By: #### L 500.2500, L100.0500 #### [facility] [address] [place], [address] Urea nitrogen [Mass/Vol] 10 mg/dL Normal 4-19 [facility] Comment on above: Order Comment: 102-1 Performed By: #### L 500.2500, L100.0500 #### [facility] [address] [place], [address] CBC-Complete Blood Cnt No Di ffon 03-26-2025 Erythrocyte distribution width (RBC) [Ratio] 13.2 % Normal 11.6-14.6 [facility] Comment on above: Order Comment: 102-1 Performed By: #### L 500.2500, L100.0500 #### [facility] [address] [place], [address] Hematocrit (Bld) [Volume fraction] 40.3 % Normal 40-54 [facility] Comment on above: Order Comment: 102-1 Performed By: #### L 500.2500, L100.0500 #### [facility] [address] [place], [address] Hemoglobin (Bld) [Mass/Vol] 14.6 g/dL Normal 13.0-16.5 [facility] Comment on above: Order Comment: 102-1 Performed By: #### L 500.2500, L100.0500 #### [facility] [address] [place], [address] MCH (RBC) [Entitic mass] 29.7 pg Normal 27.0-32.0 [facility] Comment on above: Order Comment: 102-1 Performed By: #### L 500.2500, L100.0500 #### [facility] [address] [place], [address] MCHC (RBC) [Mass/Vol] 36.2 g/dL High 32-36 [facility] Comment on above: Order Comment: 102-1 Performed By: #### L 500.2500, L100.0500 #### [facility] [address] [place], [address] MCV (RBC) [Entitic vol] 82.1 fL Normal 80-94 [facility] Comment on above: Order Comment: 102-1 Performed By: #### L 500.2500, L100.0500 #### [facility] [address] [place], [address] Platelet mean volume (Bld) [Entitic vol] 10.2 fL Normal 6.2-12.0 [facility] Comment on above: Order Comment: 102-1 Performed By: #### L 500.2500, L100.0500 #### [facility] [address] [place], [address] Platelets (Bld) [#/Vol] 283 10*3/uL Normal 150-450 [facility] Comment on above: Order Comment: 102-1 Performed By: #### L 500.2500, L100.0500 #### [facility] [address] [place], [address] RBC (Bld) [#/Vol] 4.91 10*6/uL Normal 4.6-6.2 [facility] Comment on above: Order Comment: 102-1 Performed By: #### L 500.2500, L100.0500 #### [facility] [address] [place], [address] RDW SD 38.8 fl Normal 35.1-43.9 [facility] Comment on above: Order Comment: 102-1 Performed By: #### L 500.2500, L100.0500 #### [facility] [address] [place], [address] WBC (Bld) [#/Vol] 7.4 10*3/uL Normal 4.4-11.0 [facility] Comment on above: Order Comment: 102-1 Performed By: #### L 500.2500, L100.0500 #### [facility] [address] [place], [address] Carbon dioxide, total [Moles /volume] in Central venous bloodOrdered By: Denny Buckley on 03-26-2025 CO2 [Moles/Vol] 23.3 mmol/L 21.0-32.0 [facility] Chloride assayOrdered By: Merrill Mack on 03-26-2025 Chloride [Moles/Vol] 107 mmol/L 98-108 [facility] Erythrocyte distribution wid th ratioOrdered By: Denny Buckley on 03-26-2025 Erythrocyte distribution width (RBC) [Ratio] 13.2 % 11.6-14.6 [facility] Erythrocyte distribution wid th standard deviationOrdered By: Denny Buckley on 03-26-2025 Erythrocyte distribution width (RBC) [Ratio] 38.8 fl 35.1-43.9 [facility] Glomerular filtration rate ( GFR) estimation/1.73 sq m using serum, plasma, or whole bOrdered By: Denny Buckley on 03-26-2025 GFR/1.73 sq M.predicted among non-blacks MDRD (S/P/Bld) [Vol rate/Area] 101 mL/min/{1.73_m2} >60 [facility] Comment on above: mL/min/1.73m2 CKD-EP I Creatinine Equation (2020) Hematocrit Auto (Bld) [Volum e fraction]Ordered By: Denny Buckley on 03-26-2025 Hematocrit (Bld) [Volume fraction] 40.3 % 40-54 [facility] Hemoglobin measurementOrdere d By: Denny Buckley on 03-26-2025 Hemoglobin (Bld) [Mass/Vol] 14.6 g/dL 13.0-16.5 [facility] MCV (mean corpuscular volume ) determinationOrdered By: Denny Buckley on 03-26-2025 MCV (RBC) [Entitic vol] 82.1 fL 80-94 [facility] Mean corpuscular hemoglobin (MCH) determinationOrdered By: Denny Buckley on 03-26-2025 MCH (RBC) [Entitic mass] 29.7 pg 27.0-32.0 [facility] Mean corpuscular hemoglobin concentration (MCHC) determinationOrdered By: Denny Buckley on 03-26-2025 MCHC (RBC) [Mass/Vol] 36.2 g/dL High 32-36 [facility] Mean platelet volume determi nationOrdered By: Denny Buckley on 03-26-2025 Platelet mean volume (Bld) [Entitic vol] 10.2 fL 6.2-12.0 [facility] Platelet countOrdered By: Merrill Mack on 03-26-2025 Platelets (Bld) [#/Vol] 283 10*3/uL 150-450 [facility] Potassium measurement (mass/ volume)Ordered By: Denny Buckley on 03-26-2025 Potassium (Unsp spec) [Mass/Vol] 3.8 mmol/L 3.3-5.1 [facility] RBC Auto (Bld) [#/Vol]Ordere d By: Denny Buckley on 03-26-2025 RBC (Bld) [#/Vol] 4.91 10*6/uL 4.6-6.2 [facility] Serum creatinine measurement (mass/volume)Ordered By: Denny Buckley on 03-26-2025 Creatinine [Mass/Vol] 0.84 mg/dL 0.70-1.20 [facility] Serum glucose measurement (m ass/volume)Ordered By: Denny Buckley on 03-26-2025 Glucose [Mass/Vol] 120 mg/dL High 70-99 [facility] Serum or plasma calcium isaiah urement (mass/volume)Ordered By: Denny Buckley on 03-26-2025 Calcium [Mass/Vol] 9.1 mg/dL 7.6-11.0 [facility] Serum or plasma urea nitroge n measurement (mass/volume)Ordered By: Denny Buckley on 03-26-2025 Urea nitrogen [Mass/Vol] 10 mg/dL 4-19 [facility] Sodium levelOrdered By: Dick Buckley on 03-26-2025 Sodium [Moles/Vol] 141 mmol/L 133-145 [facility] White blood cell (WBC) count Ordered By: Denny Buckley on 03-26-2025 WBC (Bld) [#/Vol] 7.4 10*3/uL 4.4-11.0 [facility] Hemoglobin A1con 03-18-2025 HbA1c (Bld) [Mass fraction] 5.6 % Normal <=5.6 [facility] Comment on above: Order Comment: 102.1 Result Comment: Norm al < 5.7 % Prediabetic 5.7 - 6.4 % Diabetic >or= 6.5 % Please note range changes. Performed By: #### L 501.9985 #### [facility] [address] [place], [place] [address], [address] Hemoglobin A1c percentageOrd ered By: Denny Buckley on 03-18-2025 HbA1c (Bld) [Mass fraction] 5.6 % <5.7 [facility] Comment on above: Normal < 5.7 % Predi abetic 5.7 - 6.4 % Diabetic >or= 6.5 % Please note range changes. Carlos 02-07-2025 [facility] Telephone (NECVS[facility]) EVANGELISTA BORREGO JR ([id number]) 1965 M Date Time Provider Department 02/07/25 DODIE IRVIN NEC[facility]8 During your visit today, we recorded the following information about you: Malinda Downs 02/07/2025 3:24 PM Signed Received outside medical records (bloodwork) from [facility] test and scanned into patient chart. Allergies As [...] Status:Closed by MALINDA DOWNS on 02/17/25 Normal [facility] [id number] 02-06-2025 [facility] Misc. COMMENT Normal . [facility] Comment on above: Order Comment: 102.1 SERUM ROOM TEMP 660200 OXCARBAZEPINE SERUM OR PLASMA Result Comment: Test Ordered: 259529 Oxcarbazepine (Trileptal),S Oxcarbazepine Metabolite 4 [L ] ug/mL BN Reference Range: 10-35 This test was developed and its performance characteristics determined by [facility]. It has not been cleared or approved by the Food and Drug Administration. Detection Limit = 1 Performed at: [facility] [address] [id number] Principal Gifts Officer: Ashley Connell MD, Phone: [phone] Performed at: [facility] [address] [id number] Principal Gifts Officer: Norman Butcher PhD, Phone: [phone] Performed By: #### L 3410.9992 #### [facility] [address] [place], [address] CNOVon 01-30-2025 [facility] Office Visit (NECVS8) EVANGELISTA BORREGO JR ([id number]) 1965 M Date Time Provider Department 01/30/25 1:05 PM DODIE IRVIN NECVS8 During your visit today, we recorded the following information about you: Temperature Pulse Respiration Blood pressure 96.8 degrees 52/minute 13/minute 150/56 Height 1.702 m Dodie Irvin APRN.DIESEL POWER SHOVEL OPERATOR 01/30/2025 1:40 PM Signed [facility] Established Visit Consultation is requested by: Andrew Galarza [address] [facility] [address] PCP: Adriana Shaw MD (DrC) [address] [place] [address] [facility] Evangelista Borrego JR is a [...] but demonstrates encephalomalacia in left paramedian occipital lobe". 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 Unclear chronicity of the occlusion. Patient was determined not to be a candidate for TNK given time from [facility]. Recommendation was made to give ASA load and keep patient flat. Patient transferred to [facility] SDU for further observation and workup. Office [...] ARTHROSCOPIC PROCEDURE ANKLE AND FOOT COLONOSCOPY [facility]LASTY AND/TRANSPOS MEDIAN NRV CARPAL TUNNE Carpal [...] by mo (more content not included)... Normal [facility] CT CERVICAL SPINE WO IV CONT [facility] 01-17-2025 CT CERVICAL SPINE WO IV CONTRAST Patient Name: EVANGELISTA [facility]ORREGO : 1965 [id number] Ex[facility] Date/Time: 01/17/2025 15:49 Procedure: CT CERVICAL [...] pain at this time. Normal [facility] CT Cervical spine WO contrlula ton 01-17-2025 Patient Name: [facility]ELIST[facility] 1965 [id number] Exam Date/Time: 01/17/2025 15:49 Procedure: CT CERVICAL [...] fracture and the paranasal sinuses are clear. [facility] Tobi Boudreaux MD - 01/17/2025 Patient [...] Electronically Signed Date/Time: 01/17/2025 4:46 PM EDT [facility] Radiology Study observation (narrative) [facility] CT HEAD WO IV CONTRASTon CT HEAD [...] pain at this time. Normal [facility] CT Head WO contraston 2024 Patient [...] fracture and the paranasal sinuses are clear. [facility] Tobi Boudreaux MD - 01/17/2025 Patient Name: EVANGELISTA [facility]ORREGO : 1965 [id number] Exam Date/Time: 01/17/2025 15:49 Procedure: CT HEAD [...] Electronically Signed Date/Time: 01/17/2025 4:46 PM EDT [facility] Radiology Study observation (narrative) [facility] ED Nursing Noteon 01-17-2025 ED Nursing Note Jorje Charles here to take pt back to SNF. Osmani (medic) gave handoff to EMS crew. All questions answered and paperwork provided. [facility] called and notified of pt returning. Pt clean and dry returning to facility. Normal [facility] ED Nursing Note Updated ETA 2130 Normal [facility] ED Provider Noteon ED Provider Note EMERGENCY [...] to the emergency department for fall at intermediate facility. History of prior CVA, alert and [...] is mild. Fall was apparently witnessed at intermediate facility Nursing Notes were reviewed. REVIEW OF SYSTEMS 14 systems reviewed and otherwise acutely negative except as in the AKHIOK. PAST MEDICAL HISTORY Medical History[1] SURGICAL HISTORY [...] his right radial styloid and mid hand, photogrammetric engineer strength sensation is intact throughout SKIN: no [...] (more content not included)... Normal [facility] No Panel Informationon 01-17 1. No [...] Electronically Signed Date/Time: 01/17/2025 4:46 PM EDT [facility] 1. No acute findings. Report Dictated on Electronically Signed By: Tobi Boudreaux MD Electronically Signed Date/Time: 01/17/2025 4:11 PM EDT [facility] No Panel InformationOrdered By: Tobi Boudreaux on 01-17-2025 [facility] Work Phone: XR Hand - right 3 [...] limits. There is no radiopaque foreign body. [facility] Tobi Boudreaux MD - 01/17/2025 Patient [...] Electronically Signed Date/Time: 01/17/2025 4:11 PM EDT [facility] Radiology Study observation (narrative) [facility] XR Wrist - right 3 Viewson 0 [...] limits. There is no radiopaque foreign body. [facility] Tobi Boudreaux MD - 01/17/2025 [...] Electronically Signed Date/Time: 01/17/2025 4:11 PM EDT [facility] Radiology Study observation (narrative) [facility] Vicente seven Gonzalez [facility] EVANGELIST[facility] BORREGO JR ([id number]) 1965 Date Time Provider Department 12/02/24 DODIE IRVIN [facility] During your visit today, we recorded the [...] JR, 1965). Yes Number to return call [phone] Reason for Call: Patient Question/Update: Nurse from where patient is staying calling with a few questions about Lovenox medication. Please return call at [phone] Thank you calling [facility]. You will receive a return call within [...] RN 12/02/2024 2:53 PM Signed Call to [facility], wants to know if pt is supposed to still be on Lovenox. States that the TOPOGRAPHICAL ENGINEER there is uncomfortable d/c-ing it without CV provider's input. Please call back [phone] Monday. Seble Myers RN December 02, 2024 2:50 PM Seble Myers RN 12/03/2024 8:36 AM Signed Per Dodie Irvin CNP: Lovenox is not something he needs for stroke. If it is prophylactic, that can be determined by the house doc. Call to [facility], Message as above, verbalized understanding, no further questions. Seble Myers RN December 03, 2024 8:36 AM Allergies As of Date: 12/02/2024 (No Known Allergies) Date Reviewed: 11/25/2024 Reviewed by: Mariel Aguila MA - Fully Assessed Reason for Visit: Patient Question [1477] Prescriptions as of 12/03/2024 - donepezil (ARICEPT) [...] Encounter Status:Closed by SEBLE MYERS on 12/02/24 [facility] CNOVon 11-25-2024 CNOV Office Visit (ENDOIN) EVANGELISTA BORREGO JR ([id number]) 1965 M Date Time Provider Department 11/25/24 [...] mail. PCP is MD Adriana Atwood MD ([facility]) [address] [place] [id number] Date: November 25, 2024 History of Present Illness Evangelista Borrego JR is a 59 year old male with PMH of T2DM, HTN, HLD, CVA, seizures and CHRYSTAL who presents today for evaluation of T2DM Patient lives in [facility]. Patient is accompanied by vp transportation. She has no clinical information about the [...] ARTHROSCOPIC PROCEDURE ANKLE AND FOOT COLONOSCOPY [facility] NEUROPLASTY AND/TRANSPOS MEDIAN NRV CARPAL TUNNE Carpal [...] as instructed. (more content not included)... [facility] (DHARMESH) EVANGELISTA BORREGO JR ([id number]) 1965 M Date Time Provider Department 11/25/24 BLAIRE DENNEY During your visit today, we recorded the following information about you: Blaire Denney MD 11/25/2024 2:41 PM Signed Please let the facility know that I reviewed the blood sugars. To continue current insulin regimen MD Arian Omalley Wendy, LPN 11/25/2024 2:58 PM Signed Called [facility] @ [phone] Spoke to staff. Relayed providers message below [...] Status:Closed by BLAIRE DENNEY on 11/26/24 Normal [facility] Misc.on 11-01-2024 [facility] Misc. COMMENT Normal . [facility] Comment on above: Order Comment: 108.2 SERUM ROOM TEMP [id number] OXCARBAZEPINE SERUM OR PLASMA Result Comment: Test Ordered: [id number] Oxcarbazepine (Trileptal),S Oxcarbazepine 2 [L ] ug/mL Reference Range: 10-35 This test was developed and its performance characteristics determined by [facility]. It has not been cleared or approved by the Food and Drug Administration. Detection Limit = 1 Performed at: [address] [id number] Principal Gifts Officer: Ashley Connell MD, Phone: [phone] Performed at: [address] [id number] Principal Gifts Officer: Norman Butcher PhD, Phone: [phone] Performed By: #### L 3410.9998, L100.0500, L500.4050 #### [facility] [address] [place], [place], [address] CNOVon 10-31-2024 CNOV Office Visit (NECVS8) EVANGELISTA BORREGO JR ([id number]) 1965 M Date Time Provider Department 10/31/24 1:35 PM DODIE IRVIN NECVS8 During your visit today, we recorded the following information about you: Pulse Blood pressure 55/minute 105/55 Dodie Irvin APRN.DIESEL POWER SHOVEL OPERATOR 10/31/2024 2:18 PM Signed [facility] Established Visit Consultation is requested by: Andrew Galarza [address] [facility] [id number] PCP: Adriana Shaw MD ([facility]) [address] [place] [address] CEREBROVASCULAR HISTORY Evangelista Borrego JR is a 59 year old male. Stroke Event Information [facility] 09/22/24-09/29/24 Mr. Evangelista Borrego is a [...] but demonstrates encephalomalacia in left paramedian occipital lobe". 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 Unclear chronicity of the occlusion. Patient was determined not to be a candidate for TNK given time from [facility]. Recommendation was made to give ASA load and keep patient flat. Patient transferred to [facility] SDU for further observation and workup. Office [...] ARTHROSCOPIC PROCEDURE ANKLE AND FOOT COLONOSCOPY [facility] NEUROPLASTY AND/TRANSPOS MEDIAN NRV CARPAL TUNNE Carpal [...] anicteric. Oropharyn (more content not included)... Normal [facility].on 10-31-2024 [facility]. COMMENT Normal . [facility] Comment on above: Order Comment: 108.2 SERUM ROOM TEMP [id number] ZONISAMIDE SERUM OR PLASM Result Comment: Test Ordered: [id number] Zonisamide(Zonegran), Serum Zonisamide 7.0 [L ] ug/mL Reference Range: 10.0-40.0 Detection Limit = 2.0 Performed at: BN - [facility] [address] [id number] Principal Gifts Officer: Ashley Connell MD, Phone: [phone] Performed at: CB - [facility] [address] [id number] Principal Gifts Officer: Norman Butcher PhD, Phone: [phone] Performed By: #### L 3410.9998 #### [facility] [address] [place], [address] 36on 10-28-2024 36 S: Nurse spoke with [facility] nurse regarding fall B: Onset of symptoms/concern tonight A: Nay-Nurse from [facility] for a witnessed fall out of [...] Protocols used: Information Only Call - No [facility] Anion gap in Serum or Plasma Ordered By: Frank Liriano on 10-28-2024 Anion gap [Moles/Vol] 11 mmol/L 5-15 [facility] BUN/creatinine ratioOrdered By: Frank Liriano on 10-28-2024 Urea nitrogen/Creatinine [Mass ratio] 14.6 mg/mg 10-20 [facility] Bilirubin, totalOrdered By: Frank Liriano on 10-28-2024 Bilirubin [Mass/Vol] 0.35 mg/dL 0.00-1.30 [facility] CBC-Complete Blood Cnt No Di ffon 10-28-2024 Erythrocyte distribution width (RBC) [Ratio] 13.6 % Normal 11.6-14.6 [facility] Comment on above: Order Comment: 108.2 Performed By: #### L 3410.9998, L100.0500, L500.4050 #### [facility] [address] [place], [address] Hematocrit (Bld) [Volume fraction] 39.3 % Low 40-54 [facility] Comment on above: Order Comment: 108.2 Performed By: #### L 3410.9998, L100.0500, L500.4050 #### [facility] [address] [place], [address] Hemoglobin (Bld) [Mass/Vol] 13.8 g/dL Normal 13.0-16.5 [facility] Comment on above: Order Comment: 108.2 Performed By: #### L 3410.9998, L100.0500, L500.4050 #### [facility] [address] [place], [address] MCH (RBC) [Entitic mass] 30.8 pg Normal 27.0-32.0 [facility] Comment on above: Order Comment: 108.2 Performed By: #### L 3410.9998, L100.0500, L500.4050 #### [facility] [address] [place], [address] MCHC (RBC) [Mass/Vol] 35.1 g/dL Normal 32-36 [facility] Comment on above: Order Comment: 108.2 Performed By: #### L 3410.9998, L100.0500, L500.4050 #### [facility] [address] [place], [address] MCV (RBC) [Entitic vol] 87.7 fL Normal 80-94 [facility] Comment on above: Order Comment: 108.2 Performed By: #### L 3410.9998, L100.0500, L500.4050 #### [facility] [address] [place], [address] Platelet mean volume (Bld) [Entitic vol] 10.2 fL Normal 6.2-12.0 [facility] Comment on above: Order Comment: 108.2 Performed By: #### L 3410.9998, L100.0500, L500.4050 #### [facility] [address] [place], [address] Platelets (Bld) [#/Vol] 223 10*3/uL Normal 150-450 [facility] Comment on above: Order Comment: 108.2 Performed By: #### L 3410.9998, L100.0500, L500.4050 #### [facility] [address] [place], [address] RBC (Bld) [#/Vol] 4.48 10*6/uL Low 4.6-6.2 [facility] Comment on above: Order Comment: 108.2 Performed By: #### L 3410.9998, L100.0500, L500.4050 #### [facility] [address] [place], [address] RDW SD 43.3 fl Normal 35.1-43.9 [facility] Comment on above: Order Comment: 108.2 Performed By: #### L 3410.9998, L100.0500, L500.4050 #### [facility] [address] [place], [address] WBC (Bld) [#/Vol] 5.8 10*3/uL Normal 4.4-11.0 [facility] Comment on above: Order Comment: 108.2 Performed By: #### L 3410.9998, L100.0500, L500.4050 #### [facility] [address] [place], [address] Carbon dioxide, total [Moles /volume] in Central venous bloodOrdered By: Frank Liriano on 10-28-2024 CO2 [Moles/Vol] 22.9 mmol/L 21.0-32.0 [facility] Chloride assayOrdered By: Sendy Liriano on 10-28-2024 Chloride [Moles/Vol] 109 mmol/L High 98-108 [facility] Comprehensive Metabolic Prof ilon 10-28-2024 Albumin [Mass/Vol] 3.6 g/dL Normal 3.5-5.0 [facility] Comment on above: Order Comment: 108.2 Performed By: #### L 3410.9998, L100.0500, L500.4050 #### [facility] [address] [place], [address] Albumin/Globulin [Mass ratio] 1.3 {ratio} Normal 0.9-2.4 [facility] Comment on above: Order Comment: 108.2 Performed By: #### L 3410.9998, L100.0500, L500.4050 #### [facility] [address] [place], [address] ALK PHOS 86 U/L Normal 40-129 [facility] Comment on above: Order Comment: 108.2 Performed By: #### L 3410.9998, L100.0500, L500.4050 #### [facility] [address] [place], [address] ALT [Catalytic activity/Vol] 28 U/L Normal <=46 [facility] Comment on above: Order Comment: 108.2 Performed By: #### L 3410.9998, L100.0500, L500.4050 #### [facility] [address] [place], [address] AST [Catalytic activity/Vol] 25 U/L Normal <=37 [facility] Comment on above: Order Comment: 108.2 Performed By: #### L 3410.9998, L100.0500, L500.4050 #### [facility] [address] [place], [address] Bilirubin [Mass/Vol] 0.35 mg/dL Normal 0.00-1.30 [facility] Comment on above: Order Comment: 108.2 Performed By: #### L 3410.9998, L100.0500, L500.4050 #### [facility] [address] [place], [address] BUN/CRE 14.6 RATIO Normal 10-20 [facility] Comment on above: Order Comment: 108.2 Performed By: #### L 3410.9998, L100.0500, L500.4050 #### [facility] [address] [place], [address] Calcium [Mass/Vol] 8.8 mg/dL Normal 7.6-11.0 [facility] Comment on above: Order Comment: 108.2 Performed By: #### L 3410.9998, L100.0500, L500.4050 #### [facility] [address] [place], [address] Chloride [Moles/Vol] 109 mmol/L High 98-108 [facility] Comment on above: Order Comment: 108.2 Performed By: #### L 3410.9998, L100.0500, L500.4050 #### [facility] [address] [place], [address] CO2 [Moles/Vol] 22.9 mmol/L Normal 21.0-32.0 [facility] Comment on above: Order Comment: 108.2 Performed By: #### L 3410.9998, L100.0500, L500.4050 #### [facility] [address] [place], [address] Creatinine [Mass/Vol] 0.96 mg/dL Normal 0.70-1.20 [facility] Comment on above: Order Comment: 108.2 Performed By: #### L 3410.9998, L100.0500, L500.4050 #### [facility] [address] [place], [address] GAP 11 Normal 5-15 [facility] Comment on above: Order Comment: 108.2 Performed By: #### L 3410.9998, L100.0500, L500.4050 #### [facility] [address] [place], [address] GFR/1.73 sq M.predicted among non-blacks MDRD (S/P/Bld) [Vol rate/Area] 91 mL/min/{1.73_m2} Normal >60 [facility] Comment on above: Order Comment: 108.2 Result Comment: mL/m in/1.73m2 CKD-EPI Creatinine Equation (2020) Performed By: #### L 3410.9998, L100.0500, L500.4050 #### [facility] [address] [place], [address] Globulin (S) [Mass/Vol] 2.8 g/dL Normal 2.2-4.2 [facility] Comment on above: Order Comment: 108.2 Performed By: #### L 3410.9998, L100.0500, L500.4050 #### [facility] [address] [place], [address] Glucose [Mass/Vol] 102 mg/dL High 70-99 [facility] Comment on above: Order Comment: 108.2 Performed By: #### L 3410.9998, L100.0500, L500.4050 #### [facility] [address] [place], [address] Potassium [Moles/Vol] 3.9 mmol/L Normal 3.3-5.1 [facility] Comment on above: Order Comment: 108.2 Result Comment: Hemo lysis present, Results??could be affected. ?? Performed By: #### L 3410.9998, L100.0500, L500.4050 #### [facility] [address] [place], [address] Sodium [Moles/Vol] 142 mmol/L Normal 133-145 [facility] Comment on above: Order Comment: 108.2 Performed By: #### L 3410.9998, L100.0500, L500.4050 #### [facility] [address] [place], [address] T PROT 6.5 g/dL Normal 5.9-8.4 [facility] Comment on above: Order Comment: 108.2 Performed By: #### L 3410.9998, L100.0500, L500.4050 #### [facility] [address] [place], [address] Urea nitrogen [Mass/Vol] 14 mg/dL Normal 4-19 [facility] Comment on above: Order Comment: 108.2 Performed By: #### L 3410.9998, L100.0500, L500.4050 #### [facility] [address] [place], [address] Erythrocyte distribution wid th ratioOrdered By: Frank Liriano on 10-28-2024 Erythrocyte distribution width (RBC) [Ratio] 13.6 % 11.6-14.6 [facility] Erythrocyte distribution wid th standard deviationOrdered By: Frank Liriano on 10-28-2024 Erythrocyte distribution width (RBC) [Ratio] 43.3 fl 35.1-43.9 [facility] Glomerular filtration rate ( GFR) estimation/1.73 sq m using serum, plasma, or whole bOrdered By: Frank Liriano on 10-28-2024 GFR/1.73 sq M.predicted among non-blacks MDRD (S/P/Bld) [Vol rate/Area] 91 mL/min/{1.73_m2} >60 [facility] Comment on above: mL/min/1.73m2 CKD-EP I Creatinine Equation (2020) Hematocrit Auto (Bld) [Volum e fraction]Ordered By: Frank Liriano on 10-28-2024 Hematocrit (Bld) [Volume fraction] 39.3 % Low 40-54 [facility] Hemoglobin measurementOrdere d By: Frank Liriano on 10-28-2024 Hemoglobin (Bld) [Mass/Vol] 13.8 g/dL 13.0-16.5 [facility] Laboratory - Chemistry and C hemistry - challengeOrdered By: Frank Liriano on 10-28-2024 AST [Catalytic activity/Vol] 25 U/L <38 [facility] MCV (mean corpuscular volume ) determinationOrdered By: Frank Liriano on 10-28-2024 MCV (RBC) [Entitic vol] 87.7 fL 80-94 [facility] Mean corpuscular hemoglobin (MCH) determinationOrdered By: Frank Liriano on 10-28-2024 MCH (RBC) [Entitic mass] 30.8 pg 27.0-32.0 [facility] Mean corpuscular hemoglobin concentration (MCHC) determinationOrdered By: Frank Liriano on 10-28-2024 MCHC (RBC) [Mass/Vol] 35.1 g/dL 32-36 [facility] Mean platelet volume determi nationOrdered By: Frank Liriano on 10-28-2024 Platelet mean volume (Bld) [Entitic vol] 10.2 fL 6.2-12.0 [facility] Platelet countOrdered By: Senyd Liriano on 10-28-2024 Platelets (Bld) [#/Vol] 223 10*3/uL 150-450 [facility] Potassium measurement (mass/ volume)Ordered By: Frank Liriano on 10-28-2024 Potassium (Unsp spec) [Mass/Vol] 3.9 mmol/L 3.3-5.1 [facility] Comment on above: Hemolysis present, R esults could be affected. RBC Auto (Bld) [#/Vol]Ordere d By: Frank Liriano on 10-28-2024 RBC (Bld) [#/Vol] 4.48 10*6/uL Low 4.6-6.2 [facility] Serum creatinine measurement (mass/volume)Ordered By: Frank Liriano on 10-28-2024 Creatinine [Mass/Vol] 0.96 mg/dL 0.70-1.20 [facility] Serum globulin measurementOr dered By: Frank Liriano on 10-28-2024 Globulin (S) [Mass/Vol] 2.8 g/dL 2.2-4.2 [facility] Serum glucose measurement (m ass/volume)Ordered By: Frank Liriano on 10-28-2024 Glucose [Mass/Vol] 102 mg/dL High 70-99 [facility] Serum or plasma alanine diallo otransferase (ALT) measurementOrdered By: Frank Liriano on 10-28-2024 ALT [Catalytic activity/Vol] 28 U/L <47 [facility] Serum or plasma albumin isaiah urement (mass/volume)Ordered By: Frank Liriano on 10-28-2024 Albumin [Mass/Vol] 3.6 g/dL 3.5-5.0 [facility] Serum or plasma albumin/glob ulin mass ratioOrdered By: Frank Liriano on 10-28-2024 Albumin/Globulin [Mass ratio] 1.3 {ratio} 0.9-2.4 [facility] Serum or plasma alkaline tyrell sphatase measurementOrdered By: Frank Liriano on 10-28-2024 ALP [Catalytic activity/Vol] 86 U/L 40-129 [facility] Serum or plasma calcium isaiah urement (mass/volume)Ordered By: Frank Liriano on 10-28-2024 Calcium [Mass/Vol] 8.8 mg/dL 7.6-11.0 [facility] Serum or plasma urea nitroge n measurement (mass/volume)Ordered By: Frank Liriano on 10-28-2024 Urea nitrogen [Mass/Vol] 14 mg/dL 4-19 [facility] Sodium levelOrdered By: Marti Liriano on 10-28-2024 Sodium [Moles/Vol] 142 mmol/L 133-145 [facility] Total proteinOrdered By: Virgilio alyssa Deandra on 10-28-2024 Protein [Mass/Vol] 6.5 g/dL 5.9-8.4 [facility] White blood cell (WBC) count Ordered By: Frank Deandra on 10-28-2024 WBC (Bld) [#/Vol] 5.8 10*3/uL 4.4-11.0 [facility] Basic metabolic 2000 panelon 10-21-2024 Anion gap [Moles/Vol] 14 mmol/L 8 - 15 mmol/L [facility] Calcium [Mass/Vol] 9 mg/dL 8.5 - 10. 2 mg/dL [facility] Chloride [Moles/Vol] 105 mmol/L 98 - 10 7 mmol/L [facility] CO2 [Moles/Vol] 22 mmol/L 22 - 30 mmol/L [facility] Creatinine [Mass/Vol] 0.98 mg/dL 0.73 - 1.22 mg/dL [facility] GFR/1.73 sq M.predicted among non-blacks MDRD (S/P/Bld) [Vol rate/Area] 89 mL/min/{1.73_m2} - PINF [facility] Comment on above: Estimated Glomerular Filtration [...] [Mass/Vol] 88 mg/dL 74 - 99 mg/dL [facility] Comment on above: The [place] Di[employer] Association (ADA) provides guidance for [...] Standards of Medical Care in Diabetes 2016, [place] [employer]. Diabetes Care. 2016.39(Suppl 1). Interpretation and review of laboratory results Normal [facility] Potassium [Moles/Vol] 3.9 mmol/L 3.7 - 5.1 mmol/L [facility] Sodium [Moles/Vol] 141 mmol/L 136 - 144 mmol/L [facility] Urea nitrogen [Mass/Vol] 18 mg/dL 9 - 24 mg/dL [facility] Anion gap [Moles/Vol] 14 mmol/L Normal 8-15 [facility] Comment on above: Order Comment: Speci men Type: BLOOD SPECIMENOrdering Facility: [facility] Address: [address] [place] [address] Performed By: #### 2 4321-2 ####[facility] LABORATORYCLIA [id number] [place] [address] [place] Calcium [Mass/Vol] 9.0 mg/dL Normal 8.5-10.2 [facility] Comment on above: Order Comment: Speci men Type: BLOOD SPECIMENOrdering Facility: [facility] Address: [address] [place] [address] Performed By: #### 2 4321-2 ####[facility] LABORATORYCLIA [id number] [place] [address] [place] Chloride [Moles/Vol] 105 mmol/L Normal 98-107 [facility] Comment on above: Order Comment: Speci men Type: BLOOD SPECIMENOrdering Facility: [facility] Address: [address] [place] [address] Performed By: #### 2 4321-2 ####[facility] LABORATORYCLIA [id number] [place] [address] [place] CO2 [Moles/Vol] 22 mmol/L Normal 22-30 [facility] Comment on above: Order Comment: Speci men Type: BLOOD SPECIMENOrdering Facility: [facility] [facility] Address: [address] [place] [address] Performed By: #### 2 4321-2 ####ALANIS LABORATORYCLIA [id number] [place] [address] [place] Creatinine [Mass/Vol] 0.98 mg/dL Normal 0.73-1.22 [facility] Comment on above: Order Comment: Jonas florez Type: BLOOD SPECIMENOrdering Facility: [facility] Address: [address] [place] [address] Performed By: #### 2 4321-2 ####ALANIS LABORATORYCLIA [id number] [address] [place] Creatinine and Glomerular filtration rate.predicted panel (S/P/Bld) 89 mL/min/1.73m??? Normal >=60 [facility] Comment on above: Order Comment: Jonas florez Type: BLOOD SPECIMENOrdering Facility: [facility] Address: [address] [place] [address] Result Comment: Bianca mated Glomerular Filtration Rate [...] Performed By: #### 2 4321-2 ####ABEBA LABORATORYCLIA [id number] [place] [address] [place] Glucose [Mass/Vol] 88 mg/dL Normal 74-99 [facility] Comment on above: Order Comment: Jonas florez Type: BLOOD SPECIMENOrdering Facility: [facility] Address: [address] [place] [address] Result Comment: The [place] [employer] Association (ADA) provides guidance for cutoff [...] Standards of Medical Care in Diabetes 2016, [place] [employer]. Diabetes Care. 2016.39(Suppl 1). Performed By: #### 2 4321-2 ####ALANIS LABORATORYCLIA [id number] [address] STATES [facility] Potassium [Moles/Vol] 3.9 mmol/L Normal 3.7-5.1 [facility] Comment on above: Order Comment: Speci men Type: BLOOD SPECIMENOrdering Facility: [facility] Address: [address] [place] [address] Performed By: #### 2 4321-2 ####ALANIS LABORATORYCLIA [id number] [address] [place] Sodium [Moles/Vol] 141 mmol/L Normal 136-144 [facility] Comment on above: Order Comment: Speci men Type: BLOOD SPECIMENOrdering Facility: [facility] Address: [address] [place] [address] Performed By: #### 2 4321-2 ####ALANIS LABORATORYCLIA [id number] [address] STATES [facility] Urea nitrogen [Mass/Vol] 18 mg/dL Normal 9-24 [facility] Comment on above: Order Comment: Speci men Type: BLOOD SPECIMENOrdering Facility: [facility] Address: [address] [place] [address] Performed By: #### 2 4321-2 ####ALANIS LABORATORYCLIA [id number] [address] [place] CBC W Auto Differential pane l (Bld)on 10-21-2024 Basophils (Bld) [#/Vol] 0.05 10*3/uL [facility] Basophils/100 WBC (Bld) 0.7 % C [facility] Differential cell count method Nom (Bld) Auto [facility] Eosinophils (Bld) [#/Vol] 0.21 10*3/uL [facility] Eosinophils/100 WBC (Bld) 2.8 % [facility] Erythrocyte distribution width (RBC) [Ratio] 13.5 % 11.5 - 15.0 % [facility] Hematocrit (Bld) [Volume fraction] 39 % 39.0 - 51.0 % [facility] Hemoglobin (Bld) [Mass/Vol] 13.4 g/dL 13.0 - 17.0 g/dL [facility] Immature granulocytes (Bld) [#/Vol] [facility] Immature granulocytes/100 WBC (Bld) 0.3 % [facility] Lymphocytes (Bld) [#/Vol] 3.01 10*3/uL [facility] Lymphocytes/100 WBC (Bld) 40.1 % [facility] MCH (RBC) [Entitic mass] 30.1 pg 26.0 - 34.0 pg [facility] MCHC (RBC) [Mass/Vol] 34.4 g/dL 30.5 - 36.0 g/dL [facility] MCV (RBC) [Entitic vol] 87.6 fL 80.0 - 100.0 fL [facility] Monocytes (Bld) [#/Vol] 0.35 10*3/uL [facility] Monocytes/100 WBC (Bld) 4.7 % [facility] Neutrophils (Bld) [#/Vol] 3.86 10*3/uL [facility] Neutrophils/100 WBC (Bld) 51.4 % [facility] Nucleated RBC (Bld) [#/Vol] [facility] Nucleated RBC/100 WBC (Bld) [Ratio] 0 % /100 WBC [facility] Platelet mean volume (Bld) [Entitic vol] 10.2 fL 9.0 - 12.7 fL [facility] Platelets (Bld) [#/Vol] 244 10*3/uL [facility] RBC (Bld) [#/Vol] 4.45 10*6/uL 4.20 - 6.0 0 m/uL [facility] WBC (Bld) [#/Vol] 7.5 10*3/uL [facility] Basophils (Bld) [#/Vol] 0.05 10*3/uL Normal <0.11 [facility] Comment on above: Order Comment: Speci men Type: BLOOD SPECIMEN Ordering Facility: [facility] Address: [address] [place], [place] [address] Performed By: #### 3 969-3 #### [facility] CLIA [id number] [address] [place] [address] [place] Basophils/100 WBC (Bld) 0.7 % Normal [facility] Comment on above: Order Comment: Speci men Type: BLOOD SPECIMEN Ordering Facility: [facility] Address: [address] [place] [address] Performed By: #### 3 969-3 #### [facility] CLIA [id number] [address] [place] [address] [place] Differential cell count method Nom (Bld) Auto Normal [facility] Comment on above: Order Comment: Speci men Type: BLOOD SPECIMEN Ordering Facility: [facility] Address: [address] [place] [address] Performed By: #### 3 969-3 #### [facility] CLIA [id number] [address] [place] [address] [place] Eosinophils (Bld) [#/Vol] 0.21 10*3/uL Normal <0.46 [facility] Comment on above: Order Comment: Speci men Type: BLOOD SPECIMEN Ordering Facility: [facility] Address: [address] [place] [address] Performed By: #### 3 969-3 #### [facility] CLIA [id number] [address] [place] [address] [place] Eosinophils/100 WBC (Bld) 2.8 % Normal [facility] Comment on above: Order Comment: Speci men Type: BLOOD SPECIMEN Ordering Facility: [facility] Address: [address] [place] [address] Performed By: #### 3 969-3 #### [facility] CLIA [id number] [address] [place] [address] [place] Erythrocyte distribution width (RBC) [Ratio] 13.5 % Normal 11.5-15.0 [facility] Comment on above: Order Comment: Speci men Type: BLOOD SPECIMEN Ordering Facility: [facility] Address: [address] [place] [address] Performed By: #### 3 969-3 #### [facility] CLIA [id number] [address] [place] [address] [place] Hematocrit (Bld) [Volume fraction] 39.0 % Normal 39.0-51.0 [facility] Comment on above: Order Comment: Speci men Type: BLOOD SPECIMEN Ordering Facility: [facility] Address: [address] [place] [address] Performed By: #### 3 969-3 #### [facility] CLIA [id number] [address] [place] [address] [place] Hemoglobin (Bld) [Mass/Vol] 13.4 g/dL Normal 13.0-17.0 [facility] Comment on above: Order Comment: Speci men Type: BLOOD SPECIMEN Ordering Facility: [facility] Address: [address] [place] [address] Performed By: #### 3 969-3 #### [facility] CLIA [id number] [address] [place] [address] [place] Immature granulocytes (Bld) [#/Vol] 10*3/uL Normal <0.10 [facility] Comment on above: Order Comment: Speci men Type: BLOOD SPECIMEN Ordering Facility: [facility] Address: [address] [place] [address] Performed By: #### 3 969-3 #### [facility] CLIA [id number] [address] [place] [address] [place] Immature granulocytes/100 WBC (Bld) 0.3 % Normal [facility] Comment on above: Order Comment: Speci men Type: BLOOD SPECIMEN Ordering Facility: [facility] Address: [address] [place] [address] Performed By: #### 3 969-3 #### [facility] CLIA [id number] [address] [place] [address] [place] Lymphocytes (Bld) [#/Vol] 3.01 10*3/uL Normal 1.00-4.00 [facility] Comment on above: Order Comment: Speci men Type: BLOOD SPECIMEN Ordering Facility: [facility] Address: [address] [place] [address] Performed By: #### 3 969-3 #### [facility] CLIA [id number] [address] [place] [address] [place] Lymphocytes/100 WBC (Bld) 40.1 % Normal [facility] Comment on above: Order Comment: Speci men Type: BLOOD SPECIMEN Ordering Facility: [facility] Address: [address] [place] [address] Performed By: #### 3 969-3 #### [facility] CLIA [id number] [address] [place] [address] [place] MCH (RBC) [Entitic mass] 30.1 pg Normal 26.0-34.0 [facility] Comment on above: Order Comment: Speci men Type: BLOOD SPECIMEN Ordering Facility: [facility] Address: [address] [place] [address] Performed By: #### 3 969-3 #### [facility] CLIA [id number] [address] [place] [address] [place] MCHC (RBC) [Mass/Vol] 34.4 g/dL Normal 30.5-36.0 [facility] Comment on above: Order Comment: Speci men Type: BLOOD SPECIMEN Ordering Facility: [facility] Address: [address] [place] [address] Performed By: #### 3 969-3 #### [facility] CLIA [id number] [address] [place] [address] [place] MCV (RBC) [Entitic vol] 87.6 fL Normal 80.0-100.0 [facility] Comment on above: Order Comment: Speci men Type: BLOOD SPECIMEN Ordering Facility: [facility] Address: [address] [place] [address] Performed By: #### 3 969-3 #### [facility] CLIA [id number] [address] [place] [address] [place] Monocytes (Bld) [#/Vol] 0.35 10*3/uL Normal <0.87 [facility] Comment on above: Order Comment: Speci men Type: BLOOD SPECIMEN Ordering Facility: [facility] Address: [address] [place] [address] Performed By: #### 3 969-3 #### [facility] CLIA [id number] [address] [place] [address] [place] Monocytes/100 WBC (Bld) 4.7 % Normal [facility] Comment on above: Order Comment: Speci men Type: BLOOD SPECIMEN Ordering Facility: [facility] Address: [address] [place] [address] Performed By: #### 3 969-3 #### [facility] CLIA [id number] [address] [place] [address] [place] Neutrophils (Bld) [#/Vol] 3.86 10*3/uL Normal 1.45-7.50 [facility] Comment on above: Order Comment: Speci men Type: BLOOD SPECIMEN Ordering Facility: [facility] Address: [address] [place] [address] Performed By: #### 3 969-3 #### [facility] CLIA [id number] [address] [place] [address] [place] Neutrophils/100 WBC (Bld) 51.4 % Normal [facility] Comment on above: Order Comment: Speci men Type: BLOOD SPECIMEN Ordering Facility: [facility] Address: [address] [place] [address] Performed By: #### 3 969-3 #### [facility] CLIA [id number] [address] [place] [address] [place] Nucleated RBC (Bld) [#/Vol] 10*3/uL Normal <0.01 [facility] Comment on above: Order Comment: Speci men Type: BLOOD SPECIMEN Ordering Facility: [facility] Address: [address] [place] [address] Performed By: #### 3 969-3 #### [facility] CLIA [id number] [address] [place] [address] [place] Nucleated RBC/100 WBC (Bld) [Ratio] 0.0 /100 WBC Normal [facility] Comment on above: Order Comment: Speci men Type: BLOOD SPECIMEN Ordering Facility: [facility] Address: [address] [place] [address] Performed By: #### 3 969-3 #### [facility] CLIA [id number] [address] [place] [address] [place] Platelet mean volume (Bld) [Entitic vol] 10.2 fL Normal 9.0-12.7 [facility] Comment on above: Order Comment: Speci men Type: BLOOD SPECIMEN Ordering Facility: [facility] Address: [address] [place] [address] Performed By: #### 3 969-3 #### [facility] CLIA [id number] [address] [place] [address] [place] Platelets (Bld) [#/Vol] 244 10*3/uL Normal 150-400 [facility] Comment on above: Order Comment: Speci men Type: BLOOD SPECIMEN Ordering Facility: [facility] Address: [address] [place] [address] Performed By: #### 3 969-3 #### [facility] CLIA [id number] [address] [place] [address] [place] RBC (Bld) [#/Vol] 4.45 10*6/uL Normal 4.20-6.00 [facility] Comment on above: Order Comment: Speci men Type: BLOOD SPECIMEN Ordering Facility: [facility] Address: [address] [place] [address] Performed By: #### 3 969-3 #### [facility] CLIA [id number] [address] [place] [address] [place] WBC (Bld) [#/Vol] 7.50 10*3/uL Normal 3.70-11.00 [facility] Comment on above: Order Comment: Speci men Type: BLOOD SPECIMEN Ordering Facility: [facility] Address: [address] [place] [address] Performed By: #### 3 969-3 #### [facility] CLIA [id number] [address] [place] [address] [place] Basic metabolic 2000 panelon 10-14-2024 Anion gap [Moles/Vol] 11 mmol/L 8 - 15 mmol/L [facility] Calcium [Mass/Vol] 9.1 mg/dL 8.5 - 10. 2 mg/dL [facility] Chloride [Moles/Vol] 107 mmol/L 98 - 10 7 mmol/L [facility] CO2 [Moles/Vol] 22 mmol/L 22 - 30 mmol/L [facility] Creatinine [Mass/Vol] 0.96 mg/dL 0.73 - 1.22 mg/dL [facility] GFR/1.73 sq M.predicted among non-blacks MDRD (S/P/Bld) [Vol rate/Area] 92 mL/min/{1.73_m2} - PINF [facility] Comment on above: Estimated Glomerular Filtration [...] 140 mg/dL High 74 - 99 mg/dL [facility] Comment on above: The [place] Di[employer] s Association (ADA) provides guidance for [...] Standards of Medical Care in Diabetes 2016, [place] [employer]. Diabetes Care. 2016.39(Suppl 1). Interpretation and review of laboratory results Abnormal [facility] Potassium [Moles/Vol] 4.4 mmol/L 3.7 - 5.1 mmol/L [facility] Sodium [Moles/Vol] 140 mmol/L 136 - 144 mmol/L [facility] Urea nitrogen [Mass/Vol] 18 mg/dL 9 - 24 mg/dL [facility] Anion gap [Moles/Vol] 11 mmol/L Normal 8-15 [facility] Comment on above: Order Comment: Speci men Type: BLOOD SPECIMENOrdering Facility: [facility] Address: [address] [place] [address] Performed By: #### 2 4321-2 ####ALANIS LABORATORYCLIA [id number] [place] [address] [place] Calcium [Mass/Vol] 9.1 mg/dL Normal 8.5-10.2 [facility] Comment on above: Order Comment: Speci men Type: BLOOD SPECIMENOrdering Facility: [facility] Address: [address] [place] [address] Performed By: #### 2 4321-2 ####ALANIS LABORATORYCLIA [id number] [place] [address] [place] Chloride [Moles/Vol] 107 mmol/L Normal 98-107 [facility] Comment on above: Order Comment: Speci men Type: BLOOD SPECIMENOrdering Facility: [facility] Address: [address] [place], [place] [id number] Performed By: #### 2 4321-2 ####ALANIS LABORATORYCLIA [id number] [place] [address] [place] CO2 [Moles/Vol] 22 mmol/L Normal 22-30 [facility] Comment on above: Order Comment: Speci men Type: BLOOD SPECIMENOrdering Facility: [facility] Address: [address] [place] [address] Performed By: #### 2 4321-2 ####ALANIS LABORATORYCLIA [id number] [address] [place] Creatinine [Mass/Vol] 0.96 mg/dL Normal 0.73-1.22 [facility] Comment on above: Order Comment: Speci men Type: BLOOD SPECIMENOrdering Facility: [facility] Address: [address] [place] [address] Performed By: #### 2 4321-2 ####ALANIS LABORATORYCLIA [id number] [address] Creatinine and Glomerular filtration rate.predicted panel (S/P/Bld) 92 mL/min/1.73m??? Normal >=60 [facility] Comment on above: Order Comment: Speci men Type: BLOOD SPECIMENOrdering Facility: [facility] Address: [address] [place] [address] Result Comment: Bianca mated Glomerular Filtration Rate [...] Performed By: #### 2 4321-2 ####ALANIS LABORATORYCLIA [id number] [address] Glucose [Mass/Vol] 140 mg/dL High 74-99 [facility] Comment on above: Order Comment: Speci men Type: BLOOD SPECIMENOrdering Facility: [facility] Address: [address] [place] [address] Result Comment: The [place] Diabetes Association (ADA) provides guidance for cutoff [...] Standards of Medical Care in Diabetes 2016, [place] [employer]. Diabetes Care. 2016.39(Suppl 1). Performed By: #### 2 4321-2 ####ALANIS LABORATORYCLIA [id number] [place] [address] [place] Potassium [Moles/Vol] 4.4 mmol/L Normal 3.7-5.1 [facility] Comment on above: Order Comment: Speci men Type: BLOOD SPECIMENOrdering Facility: [facility] Address: [address] [place] [address] Performed By: #### 2 4321-2 ####ALANIS LABORATORYCLIA [id number] [place] [address] [place] Sodium [Moles/Vol] 140 mmol/L Normal 136-144 [facility] Comment on above: Order Comment: Speci men Type: BLOOD SPECIMENOrdering Facility: [facility] Address: [address] [place] [address] Performed By: #### 2 4321-2 ####ALANIS LABORATORYCLIA [id number] [place] [address] [place] Urea nitrogen [Mass/Vol] 18 mg/dL Normal 9-24 [facility] Comment on above: Order Comment: Speci men Type: BLOOD SPECIMENOrdering Facility: [facility] Address: [address] [place] [address] Performed By: #### 2 4321-2 ####ALANIS LABORATORYCLIA [id number] [place] [id number] [place] CBC W Auto Differential pane l (Bld)on 10-14-2024 Basophils (Bld) [#/Vol] 0.07 10*3/uL [facility] Basophils/100 WBC (Bld) 0.9 % C [facility] Differential cell count method Nom (Bld) Auto [facility] Eosinophils (Bld) [#/Vol] 0.28 10*3/uL [facility] Eosinophils/100 WBC (Bld) 3.5 % [facility] Erythrocyte distribution width (RBC) [Ratio] 12.8 % 11.5 - 15.0 % [facility] Hematocrit (Bld) [Volume fraction] 37 % Low 39.0 - 51.0 % [facility] Hemoglobin (Bld) [Mass/Vol] 13 g/dL 13.0 - 17.0 g/dL [facility] Immature granulocytes (Bld) [#/Vol] 0.06 10*3/uL [facility] Immature granulocytes/100 WBC (Bld) 0.7 % [facility] Interpretation and review of laboratory results Abnormal [facility] Lymphocytes (Bld) [#/Vol] 3.23 10*3/uL [facility] Lymphocytes/100 WBC (Bld) 40 % [facility] MCH (RBC) [Entitic mass] 30.3 pg 26.0 - 34.0 pg [facility] MCHC (RBC) [Mass/Vol] 35.1 g/dL 30.5 - 36.0 g/dL [facility] MCV (RBC) [Entitic vol] 86.2 fL 80.0 - 100.0 fL [facility] Monocytes (Bld) [#/Vol] 0.4 10*3/uL [facility] Monocytes/100 WBC (Bld) 5 % C [facility] Neutrophils (Bld) [#/Vol] 4.03 10*3/uL [facility] Neutrophils/100 WBC (Bld) 49.9 % [facility] Nucleated RBC (Bld) [#/Vol] [facility] Nucleated RBC/100 WBC (Bld) [Ratio] 0 % /100 WBC [facility] Platelet mean volume (Bld) [Entitic vol] 10.2 fL 9.0 - 12.7 fL [facility] Platelets (Bld) [#/Vol] 317 10*3/uL [facility] RBC (Bld) [#/Vol] 4.29 10*6/uL 4.20 - 6.0 0 m/uL [facility] WBC (Bld) [#/Vol] 8.07 10*3/uL [facility] Basophils (Bld) [#/Vol] 0.07 10*3/uL Normal <0.11 [facility] Comment on above: Order Comment: Speci men Type: BLOOD SPECIMENOrdering Facility: [facility] Address: [address] [place] [address] Performed By: #### 5 7021-8 ####ALANIS LABORATORYCLIA [id number] [address] [place] Basophils/100 WBC (Bld) 0.9 % Normal [facility] Comment on above: Order Comment: Speci men Type: BLOOD SPECIMENOrdering Facility: [facility] Address: [address] [place] [address] Performed By: #### 5 7021-8 ####ALANIS LABORATORYCLIA [id number] [place] [address] [place] Differential cell count method Nom (Bld) Auto Normal [facility] Comment on above: Order Comment: Speci men Type: BLOOD SPECIMENOrdering Facility: [facility] Address: [address] [place] [address] Performed By: #### 5 7021-8 ####ALANIS LABORATORYCLIA [id number] [place] [address] [place] Eosinophils (Bld) [#/Vol] 0.28 10*3/uL Normal <0.46 [facility] Comment on above: Order Comment: Speci men Type: BLOOD SPECIMENOrdering Facility: [facility] Address: [address] [place] [address] Performed By: #### 5 7021-8 ####ALANIS LABORATORYCLIA [id number] [place] [address] [place] Eosinophils/100 WBC (Bld) 3.5 % Normal [facility] Comment on above: Order Comment: Speci men Type: BLOOD SPECIMENOrdering Facility: [facility] Address: [address] [place] [address] Performed By: #### 5 7021-8 ####ALANIS LABORATORYCLIA [id number] [place] [address] [place] Erythrocyte distribution width (RBC) [Ratio] 12.8 % Normal 11.5-15.0 [facility] Comment on above: Order Comment: Speci men Type: BLOOD SPECIMENOrdering Facility: [facility] Address: [address] [place] [address] Performed By: #### 5 7021-8 ####ALANIS LABORATORYCLIA [id number] [place] [address] [place] Hematocrit (Bld) [Volume fraction] 37.0 % Low 39.0-51.0 [facility] Comment on above: Order Comment: Speci men Type: BLOOD SPECIMENOrdering Facility: [facility] Address: [address] [place] [address] Performed By: #### 5 7021-8 ####ALANIS LABORATORYCLIA [id number] [place] [address] [place] Hemoglobin (Bld) [Mass/Vol] 13.0 g/dL Normal 13.0-17.0 [facility] Comment on above: Order Comment: Speci men Type: BLOOD SPECIMENOrdering Facility: [facility] Address: [address] [place] [address] Performed By: #### 5 7021-8 ####ALANIS LABORATORYCLIA [id number] [place] [address] [place] Immature granulocytes (Bld) [#/Vol] 0.06 10*3/uL Normal <0.10 [facility] Comment on above: Order Comment: Speci men Type: BLOOD SPECIMENOrdering Facility: [facility] Address: [address] [place] [address] Performed By: #### 5 7021-8 ####ALANIS LABORATORYCLIA [id number] [place] [address] [place] Immature granulocytes/100 WBC (Bld) 0.7 % Normal [facility] Comment on above: Order Comment: Speci men Type: BLOOD SPECIMENOrdering Facility: [facility] Address: [address] [place] [address] Performed By: #### 5 7021-8 ####ALANIS LABORATORYCLIA [id number] [place] [address] [place] Lymphocytes (Bld) [#/Vol] 3.23 10*3/uL Normal 1.00-4.00 [facility] Comment on above: Order Comment: Speci men Type: BLOOD SPECIMENOrdering Facility: [facility] Address: [address] [place] [address] Performed By: #### 5 7021-8 ####ALANIS LABORATORYCLIA [id number] [address] [place] Lymphocytes/100 WBC (Bld) 40.0 % Normal [facility] Comment on above: Order Comment: Speci men Type: BLOOD SPECIMENOrdering Facility: [facility] Address: [address] [place] [address] Performed By: #### 5 7021-8 ####[place] LABORATORYCLIA [id number] [place] [address] [place] MCH (RBC) [Entitic mass] 30.3 pg Normal 26.0-34.0 [facility] Comment on above: Order Comment: Speci men Type: BLOOD SPECIMENOrdering Facility: [facility] Address: [address] [place] [address] Performed By: #### 5 7021-8 ####[place] LABORATORYCLIA [id number] [address] [place] MCHC (RBC) [Mass/Vol] 35.1 g/dL Normal 30.5-36.0 [facility] Comment on above: Order Comment: Speci men Type: BLOOD SPECIMENOrdering Facility: [facility] Address: [address] [place] [address] Performed By: #### 5 7021-8 ####[place] LABORATORYCLIA [id number] [address] [place] MCV (RBC) [Entitic vol] 86.2 fL Normal 80.0-100.0 C [facility] Comment on above: Order Comment: Speci men Type: BLOOD SPECIMENOrdering Facility: [facility] Address: [address] [place] [address] Performed By: #### 5 7021-8 ####[place] LABORATORYCLIA [id number] [place] [address] [place] Monocytes (Bld) [#/Vol] 0.40 10*3/uL Normal <0.87 [facility] Comment on above: Order Comment: Speci men Type: BLOOD SPECIMENOrdering Facility: [facility] Address: [address] [place] [address] Performed By: #### 5 7021-8 ####[place] LABORATORYCLIA [id number] [address] [place] Monocytes/100 WBC (Bld) 5.0 % Normal C [facility] Comment on above: Order Comment: Speci men Type: BLOOD SPECIMENOrdering Facility: [facility] Address: [address] [place] [address] Performed By: #### 5 7021-8 ####[place] LABORATORYCLIA [id number] [place] [address] [place] Neutrophils (Bld) [#/Vol] 4.03 10*3/uL Normal 1.45-7.50 [facility] Comment on above: Order Comment: Speci men Type: BLOOD SPECIMENOrdering Facility: [facility] Address: [address] [place] [address] Performed By: #### 5 7021-8 ####[place] LABORATORYCLIA [id number] [address] [place] Neutrophils/100 WBC (Bld) 49.9 % Normal [facility] Comment on above: Order Comment: Speci men Type: BLOOD SPECIMENOrdering Facility: [facility] Address: [address] [place] [address] Performed By: #### 5 7021-8 ####[place] LABORATORYCLIA [id number] [place] [address] [place] Nucleated RBC (Bld) [#/Vol] 10*3/uL Normal <0.01 [facility] Comment on above: Order Comment: Speci men Type: BLOOD SPECIMENOrdering Facility: [facility] Address: [address] [place] [address] Performed By: #### 5 7021-8 ####[place] LABORATORYCLIA [id number] [place] [address] [place] Nucleated RBC/100 WBC (Bld) [Ratio] 0.0 /100 WBC Normal [facility] Comment on above: Order Comment: Speci men Type: BLOOD SPECIMENOrdering Facility: [facility] Address: [address] [place] [address] Performed By: #### 5 7021-8 ####[place] LABORATORYCLIA [id number] [place] [address] [place] Platelet mean volume (Bld) [Entitic vol] 10.2 fL Normal 9.0-12.7 [facility] Comment on above: Order Comment: Speci men Type: BLOOD SPECIMENOrdering Facility: [facility] Address: [address] [place] [address] Performed By: #### 5 7021-8 ####[place] LABORATORYCLIA [id number] [place] [address] [place] Platelets (Bld) [#/Vol] 317 10*3/uL Normal 150-400 [facility] Comment on above: Order Comment: Speci men Type: BLOOD SPECIMENOrdering Facility: [facility] Address: [address] [place] [address] Performed By: #### 5 7021-8 ####[place] LABORATORYCLIA [id number] [place] [address] [place] RBC (Bld) [#/Vol] 4.29 10*6/uL Normal 4.20-6.00 [facility] Comment on above: Order Comment: Speci men Type: BLOOD SPECIMENOrdering Facility: [facility] Address: [address] [place] [address] Performed By: #### 5 7021-8 ####[place] LABORATORYCLIA [id number] [address] WBC (Bld) [#/Vol] 8.07 10*3/uL Normal 3.70-11.00 [facility] Comment on above: Order Comment: Speci men Type: BLOOD SPECIMENOrdering Facility: [facility] Address: [address] [place] [address] Performed By: #### 5 7021-8 ####[place] LABORATORYCLIA [id number] [address] 10-Hydroxycarbazepine [Mass/ Vol]Ordered By: Evangelista Allen on 10-09-2024 Interpretation and review of laboratory results Normal [facility] Basic metabolic 2000 panelon 10-09-2024 Anion gap [Moles/Vol] 12 mmol/L 8 - 15 mmol/L [facility] Calcium [Mass/Vol] 8.9 mg/dL 8.5 - 10. 2 mg/dL [facility] Chloride [Moles/Vol] 105 mmol/L 98 - 10 7 mmol/L [facility] CO2 [Moles/Vol] 24 mmol/L 22 - 30 mmol/L [facility] Creatinine [Mass/Vol] 1.08 mg/dL 0.73 - 1.22 mg/dL [facility] GFR/1.73 sq M.predicted among non-blacks MDRD (S/P/Bld) [Vol rate/Area] 80 mL/min/{1.73_m2} - PINF [facility] Comment on above: Estimated Glomerular Filtration [...] 154 mg/dL High 74 - 99 mg/dL [facility] Comment on above: The [place] [employer] Association (ADA) provides guidance for [...] Standards of Medical Care in Diabetes 2016, [place] [employer]. Diabetes Care. 2016.39(Suppl 1). Interpretation and review of laboratory results Abnormal [facility] Potassium [Moles/Vol] 4 mmol/L 3.7 - 5.1 mmol/L [facility] Sodium [Moles/Vol] 141 mmol/L 136 - 144 mmol/L [facility] Urea nitrogen [Mass/Vol] 27 mg/dL High 9 - 24 mg/dL [facility] Anion gap [Moles/Vol] 12 mmol/L Normal 8-15 [facility] Comment on above: Order Comment: Speci men Type: BLOOD SPECIMEN Ordering Facility: [facility] Address: [address] [place] [address] Performed By: #### 2 4362-6 #### [facility] CLIA [id number] [address] [place] [address] [place] Calcium [Mass/Vol] 8.9 mg/dL Normal 8.5-10.2 [facility] Comment on above: Order Comment: Speci men Type: BLOOD SPECIMEN Ordering Facility: [facility] Address: [address] [place] [address] Performed By: #### 2 4362-6 #### [facility] CLIA [id number] [address] [place] [address] [place] Chloride [Moles/Vol] 105 mmol/L Normal 98-107 [facility] Comment on above: Order Comment: Speci men Type: BLOOD SPECIMEN Ordering Facility: [facility] Address: [address] [place] [address] Performed By: #### 2 4362-6 #### [facility] CLIA [id number] [address] [place] [address] [place] CO2 [Moles/Vol] 24 mmol/L Normal 22-30 [facility] Comment on above: Order Comment: Speci men Type: BLOOD SPECIMEN Ordering Facility: [facility] Address: [address] [place] [address] Performed By: #### 2 4362-6 #### [facility] CLIA [id number] [address] [place] [address] [place] Creatinine [Mass/Vol] 1.08 mg/dL Normal 0.73-1.22 [facility] Comment on above: Order Comment: Speci men Type: BLOOD SPECIMEN Ordering Facility: [facility] Address: [address] [place] [address] Performed By: #### 2 4362-6 #### [facility] CLIA [id number] [address] [place] [address] [place] Creatinine and Glomerular filtration rate.predicted panel (S/P/Bld) 80 mL/min/1.73m??? Normal >=60 [facility] Comment on above: Order Comment: Speci men Type: BLOOD SPECIMEN Ordering Facility: [facility] Address: [address] [place] [address] Result Comment: Bianca mated Glomerular Filtration Rate [...] GFR. Performed By: #### 2 4362-6 #### [facility] CLIA [id number] [address] [place], [place] [address] [place] Glucose [Mass/Vol] 154 mg/dL High 74-99 [facility] Comment on above: Order Comment: Jonas florez Type: BLOOD SPECIMEN Ordering Facility: [facility] Address: [address] [place] [address] Result Comment: The [place] Diabetes [employer] (ADA) provides guidance for cutoff [...] Standards of Medical Care in Diabetes 2016, [place] [employer]. Diabetes Care. 2016.39(Suppl 1). Performed By: #### 2 4362-6 #### [facility] CLIA [id number] [address] [place] [address] [place] Potassium [Moles/Vol] 4.0 mmol/L Normal 3.7-5.1 [facility] Comment on above: Order Comment: Jonas florez Type: BLOOD SPECIMEN Ordering Facility: [facility] Address: [address] [place] [address] Performed By: #### 2 4362-6 #### [facility] CLIA [id number] [address] [place] [address] [place] Sodium [Moles/Vol] 141 mmol/L Normal 136-144 [facility] Comment on above: Order Comment: Awaisi vikki Type: BLOOD SPECIMEN Ordering Facility: [facility] Address: [address] [place] [address] Performed By: #### 2 4362-6 #### [facility] CLIA [id number] [address] [place] [address] [place] Urea nitrogen [Mass/Vol] 27 mg/dL High 9-24 [facility] Comment on above: Order Comment: Speci men Type: BLOOD SPECIMEN Ordering Facility: [facility] Address: [address] [place] [address] Performed By: #### 2 4362-6 #### [facility] CLIA [id number] [address] [place] [address] [place] CBC panel Auto (Bld)on 10-09 Erythrocyte distribution width (RBC) [Ratio] 12.4 % 11.5 - 15.0 % [facility] Hematocrit (Bld) [Volume fraction] 34.3 % Low 39.0 - 51.0 % [facility] Hemoglobin (Bld) [Mass/Vol] 12.3 g/dL Low 13.0 - 17.0 g/dL [facility] Interpretation and review of laboratory results Abnormal [facility] MCH (RBC) [Entitic mass] 30.8 pg 26.0 - 34.0 pg [facility] MCHC (RBC) [Mass/Vol] 35.9 g/dL 30.5 - 36.0 g/dL [facility] MCV (RBC) [Entitic vol] 86 fL 80.0 - 100.0 fL [facility] Nucleated RBC (Bld) [#/Vol] NINF [facility] Platelet mean volume (Bld) [Entitic vol] 10.2 fL 9.0 - 12.7 fL [facility] Platelets (Bld) [#/Vol] 291 10*3/uL [facility] RBC (Bld) [#/Vol] 3.99 10*6/uL Low 4.20 - 6.0 0 m/uL [facility] WBC (Bld) [#/Vol] 9.25 10*3/uL [facility] Erythrocyte distribution width (RBC) [Ratio] 12.4 % Normal 11.5-15.0 [facility] Comment on above: Order Comment: Speci men Type: BLOOD SPECIMEN [facility] Address: [address] [place] [address] Performed By: #### 5 8410-2 #### [facility] CLIA [id number] [address] [place] [id number] [place] [address] [place] Hematocrit (Bld) [Volume fraction] 34.3 % Low 39.0-51.0 [facility] Comment on above: Order Comment: Speci men Type: BLOOD SPECIMEN [facility]ing Facility: [facility] Address: [address] [place] [address] Performed By: #### 5 8410-2 #### [facility] CLIA [id number] [address] [facility] Hemoglobin (Bld) [Mass/Vol] 12.3 g/dL Low 13.0-17.0 [facility] Comment on above: Order Comment: Speci men Type: BLOOD SPECIMEN Ordering Facility: [facility] Address: [address] [place] [address] Performed By: #### 5 8410-2 #### [facility] CLIA [id number] [address] MCH (RBC) [Entitic mass] 30.8 pg Normal 26.0-34.0 [facility] Comment on above: Order Comment: Speci men Type: BLOOD SPECIMEN Ordering Facility: [facility] Address: [address] [place] [address] Performed By: #### 5 8410-2 #### [facility] CLIA [id number] [address] MCHC (RBC) [Mass/Vol] 35.9 g/dL Normal 30.5-36.0 [facility] Comment on above: Order Comment: Speci men Type: BLOOD SPECIMEN [facility]ing Facility: [facility] Address: [address] [place] [address] Performed By: #### 5 8410-2 #### [facility] CLIA [id number] [address] MCV (RBC) [Entitic vol] 86.0 fL Normal 80.0-100.0 C [facility] Comment on above: Order Comment: Speci men Type: BLOOD SPECIMEN Ordering Facility: [facility] Address: [address] [place] [address] Performed By: #### 5 8410-2 #### [facility] CLIA [id number] [address] [place] [address] [place] Nucleated RBC (Bld) [#/Vol] 10*3/uL Normal <0.01 [facility] Comment on above: Order Comment: Speci men Type: BLOOD SPECIMEN [facility]ing Facility: [facility] Address: [address] [place] [address] Performed By: #### 5 8410-2 #### [facility] CLIA [id number] 1000 [place] [address] [place] Platelet mean volume (Bld) [Entitic vol] 10.2 fL Normal 9.0-12.7 [facility] Comment on above: Order Comment: Speci men Type: BLOOD SPECIMEN [facility]ing Facility: [facility] Address: [address] [place] [address] Performed By: #### 5 8410-2 #### [facility] CLIA [id number] [address] [place] [address] [place] Platelets (Bld) [#/Vol] 291 10*3/uL Normal 150-400 [facility] Comment on above: Order Comment: Speci men Type: BLOOD SPECIMEN [facility]ing Facility: [facility] Address: [address] [place] [address] Performed By: #### 5 8410-2 #### [facility] CLIA [id number] [address] [place] RBC (Bld) [#/Vol] 3.99 10*6/uL Low 4.20-6.00 [facility] Comment on above: Order Comment: Speci men Type: BLOOD SPECIMEN Ordering Facility: [facility] Address: [address] [place] [address] Performed By: #### 5 8410-2 #### [facility] CLIA [id number] [address] [place] WBC (Bld) [#/Vol] 9.25 10*3/uL Normal 3.70-11.00 [facility] Comment on above: Order Comment: Speci men Type: BLOOD SPECIMEN Ordering Facility: [facility] Address: [address] [place] [address] Performed By: #### 5 8410-2 #### [facility] CLIA [id number] [address] [place] [address] [place] OXCARBAZEPINE BLDOrdered By: Evangelista Allen on 10-09-2024 10-Hydroxycarbazepine [Mass/Vol] 3.2 ug/mL 3.0 - 35.0 ug/mL [facility] Comment on above: This test was develo ped, and its performance characteristics determined by the [facility] Department of Pathology and Laboratory Medicine. It has not been cleared or approved by the FDA. The [facility] Department of Pathology and Laboratory Medicine is regulated under CLIA as qualified to perform high-complexity testing. This test is used for clinical purposes. It should not be regarded as investigational or for research. 10OH-Carbazepine SerPl-mCnco n 10-07-2024 10-Hydroxycarbazepine [Mass/Vol] 3.2 ug/mL Normal 3.0-35.0 [facility] Comment on above: Order Comment: Speci men Type: BLOOD SPECIMENOrdering Facility: [facility] Address: [address] [place] [address] Result Comment: This test was developed, and its performance characteristics determined by the [facility] Department of Pathology and Laboratory Medicine. It has not been cleared or approved by the FDA. The [facility] Department of Pathology and Laboratory Medicine is regulated under CLIA as qualified to perform high-complexity testing. This test is used for clinical purposes. It should not be regarded as investigational or for research. Performed By: #### 3 1019-3 ####[facility] LABCLIA [id number] [place] [address] [place] Basic metabolic 2000 panelon 10-07-2024 Anion gap [Moles/Vol] 9 mmol/L 8 - 15 mmol/L [facility] Calcium [Mass/Vol] 9.1 mg/dL 8.5 - 10. 2 mg/dL [facility] Chloride [Moles/Vol] 105 mmol/L 98 - 10 7 mmol/L [facility] CO2 [Moles/Vol] 26 mmol/L 22 - 30 mmol/L [facility] Creatinine [Mass/Vol] 1.07 mg/dL 0.73 - 1.22 mg/dL [facility] GFR/1.73 sq M.predicted among non-blacks MDRD (S/P/Bld) [Vol rate/Area] 80 mL/min/{1.73_m2} - PINF [facility] Comment on above: Estimated Glomerular Filtration [...] 182 mg/dL High 74 - 99 mg/dL [facility] Comment on above: The [place] Di[employer] Association (ADA) provides guidance for [...] Standards of Medical Care in Diabetes 2016, [place] [employer]. Diabetes Care. 2016.39(Suppl 1). Interpretation and review of laboratory results Abnormal [facility] Potassium [Moles/Vol] 4.1 mmol/L 3.7 - 5.1 mmol/L [facility] Sodium [Moles/Vol] 140 mmol/L 136 - 144 mmol/L [facility] Urea nitrogen [Mass/Vol] 17 mg/dL 9 - 24 mg/dL [facility] Anion gap [Moles/Vol] 9 mmol/L Normal 8-15 [facility] Comment on above: Order Comment: Speci men Type: BLOOD SPECIMEN Ordering Facility: [facility] Address: [address] [place] [address] Performed By: #### 3 969-3 #### [facility] CLIA [id number] [address] [place] [address] [place] Calcium [Mass/Vol] 9.1 mg/dL Normal 8.5-10.2 [facility] Comment on above: Order Comment: Speci men Type: BLOOD SPECIMEN Ordering Facility: [facility] Address: [address] [place] [address] Performed By: #### 3 969-3 #### [facility] CLIA [id number] [address] [place] [address] [place] Chloride [Moles/Vol] 105 mmol/L Normal 98-107 [facility] Comment on above: Order Comment: Speci men Type: BLOOD SPECIMEN Ordering Facility: [facility] Address: [address] [place] [address] Performed By: #### 3 969-3 #### [facility] CLIA [id number] [address] [place] [address] [place] CO2 [Moles/Vol] 26 mmol/L Normal 22-30 [facility] Comment on above: Order Comment: Speci men Type: BLOOD SPECIMEN Ordering Facility: [facility] Address: [address] [place] [address] Performed By: #### 3 969-3 #### [facility] CLIA [id number] [address] [place] [address] [place] Creatinine [Mass/Vol] 1.07 mg/dL Normal 0.73-1.22 [facility] Comment on above: Order Comment: Speci men Type: BLOOD SPECIMEN Ordering Facility: [facility] Address: [address] [place] [address] Performed By: #### 3 969-3 #### [facility] CLIA [id number] [address] [place] [address] [place] Creatinine and Glomerular filtration rate.predicted panel (S/P/Bld) 80 mL/min/1.73m??? Normal >=60 [facility] Comment on above: Order Comment: Speci men Type: BLOOD SPECIMEN Ordering Facility: [facility] Address: [address] [place] [address] Result Comment: Bianca mated Glomerular Filtration Rate [...] GFR. Performed By: #### 3 969-3 #### [facility] CLIA [id number] [address] [place] [address] [place] Glucose [Mass/Vol] 182 mg/dL High 74-99 [facility] Comment on above: Order Comment: Jonas florez Type: BLOOD SPECIMEN Ordering Facility: [facility] Address: [address] [place] [address] Result Comment: The [place] [employer] (ADA) provides guidance for cutoff [...] Standards of Medical Care in Diabetes 2016, [place] [employer]. Diabetes Care. 2016.39(Suppl 1). Performed By: #### 3 969-3 #### [facility] CLIA [id number] [address] [place] [address] [place] Potassium [Moles/Vol] 4.1 mmol/L Normal 3.7-5.1 [facility] Comment on above: Order Comment: Jonas florez Type: BLOOD SPECIMEN Ordering Facility: [facility] Address: [address] [place] [address] Performed By: #### 3 969-3 #### [facility] CLIA [id number] [address] [place] [address] [place] Sodium [Moles/Vol] 140 mmol/L Normal 136-144 [facility] Comment on above: Order Comment: Speci men Type: BLOOD SPECIMEN Ordering Facility: [facility] Address: [address] [place] [address] Performed By: #### 3 969-3 #### [facility] CLIA [id number] [address] [place] [address] [place] Urea nitrogen [Mass/Vol] 17 mg/dL Normal 9-24 [facility] Comment on above: Order Comment: Speci men Type: BLOOD SPECIMEN Ordering Facility: [facility] Address: [address] [place] [address] Performed By: #### 3 969-3 #### [facility] CLIA [id number] [address] [place] [address] [place] CBC W Auto Differential pane l (Bld)on 10-07-2024 Basophils (Bld) [#/Vol] 0.07 10*3/uL [facility] Basophils/100 WBC (Bld) 0.6 % [facility] Differential cell count method Nom (Bld) Auto [facility] Eosinophils (Bld) [#/Vol] 0.25 10*3/uL [facility] Eosinophils/100 WBC (Bld) 2.2 % [facility] Erythrocyte distribution width (RBC) [Ratio] 12.8 % 11.5 - 15.0 % [facility] Hematocrit (Bld) [Volume fraction] 37 % Low 39.0 - 51.0 % [facility] Hemoglobin (Bld) [Mass/Vol] 13.1 g/dL 13.0 - 17.0 g/dL [facility] Immature granulocytes (Bld) [#/Vol] 0.07 10*3/uL [facility] Immature granulocytes/100 WBC (Bld) 0.6 % [facility] Interpretation and review of laboratory results Abnormal [facility] Lymphocytes (Bld) [#/Vol] 2.44 10*3/uL [facility] Lymphocytes/100 WBC (Bld) 21.8 % [facility] MCH (RBC) [Entitic mass] 30.6 pg 26.0 - 34.0 pg [facility] MCHC (RBC) [Mass/Vol] 35.4 g/dL 30.5 - 36.0 g/dL [facility] MCV (RBC) [Entitic vol] 86.4 fL 80.0 - 100.0 fL [facility] Monocytes (Bld) [#/Vol] 0.77 10*3/uL [facility] Monocytes/100 WBC (Bld) 6.9 % C [facility] Neutrophils (Bld) [#/Vol] 7.61 10*3/uL High [facility] Neutrophils/100 WBC (Bld) 67.9 % [facility] Nucleated RBC (Bld) [#/Vol] [facility] Nucleated RBC/100 WBC (Bld) [Ratio] 0 % /100 WBC [facility] Platelet mean volume (Bld) [Entitic vol] 10.7 fL 9.0 - 12.7 fL [facility] Platelets (Bld) [#/Vol] 276 10*3/uL [facility] RBC (Bld) [#/Vol] 4.28 10*6/uL 4.20 - 6.0 0 m/uL [facility] WBC (Bld) [#/Vol] 11.21 10*3/uL High [facility] Basophils (Bld) [#/Vol] 0.07 10*3/uL Normal <0.11 [facility] Comment on above: Order Comment: Speci men Type: BLOOD SPECIMEN Ordering Facility: [facility] Address: [address] [place] [address] Performed By: #### 3 969-3 #### [facility] CLIA [id number] [address] [place] [address] [place] Basophils/100 WBC (Bld) 0.6 % Normal [facility] Comment on above: Order Comment: Speci men Type: BLOOD SPECIMEN Ordering Facility: [facility] Address: [address] [place] [place] [address] Performed By: #### 3 969-3 #### [facility] CLIA [id number] [address] [place] [address] [place] Differential cell count method Nom (Bld) Auto Normal [facility] Comment on above: Order Comment: Speci men Type: BLOOD SPECIMEN Ordering Facility: [facility] Address: [address] [place] [address] Performed By: #### 3 969-3 #### [facility] CLIA [id number] [address] [place] [address] [place] Eosinophils (Bld) [#/Vol] 0.25 10*3/uL Normal <0.46 [facility] Comment on above: Order Comment: Speci men Type: BLOOD SPECIMEN Ordering Facility: [facility] Address: [address] [place] [address] Performed By: #### 3 969-3 #### [facility] CLIA [id number] [address] [place] [address] [place] Eosinophils/100 WBC (Bld) 2.2 % Normal [facility] Comment on above: Order Comment: Speci men Type: BLOOD SPECIMEN Ordering Facility: [facility] Address: [address] [place] [address] Performed By: #### 3 969-3 #### [facility] CLIA [id number] [address] [place] [address] [place] Erythrocyte distribution width (RBC) [Ratio] 12.8 % Normal 11.5-15.0 [facility] Comment on above: Order Comment: Speci men Type: BLOOD SPECIMEN Ordering Facility: [facility] Address: [address] [place] [address] Performed By: #### 3 969-3 #### [facility] CLIA [id number] [address] [place] [address] [place] Hematocrit (Bld) [Volume fraction] 37.0 % Low 39.0-51.0 [facility] Comment on above: Order Comment: Speci men Type: BLOOD SPECIMEN Ordering Facility: [facility] Address: [address] [place] [address] Performed By: #### 3 969-3 #### [facility] CLIA [id number] [address] [place] [address] [place] Hemoglobin (Bld) [Mass/Vol] 13.1 g/dL Normal 13.0-17.0 [facility] Comment on above: Order Comment: Speci men Type: BLOOD SPECIMEN Ordering Facility: [facility] Address: [address] [place] [address] Performed By: #### 3 969-3 #### [facility] CLIA [id number] [address] [place] [address] [place] Immature granulocytes (Bld) [#/Vol] 0.07 10*3/uL Normal <0.10 [facility] Comment on above: Order Comment: Speci men Type: BLOOD SPECIMEN Ordering Facility: [facility] Address: [address] [place] [address] Performed By: #### 3 969-3 #### [facility] CLIA [id number] [address] [place] [address] [place] Immature granulocytes/100 WBC (Bld) 0.6 % Normal [facility] Comment on above: Order Comment: Speci men Type: BLOOD SPECIMEN Ordering Facility: [facility] Address: [address] [place] [address] Performed By: #### 3 969-3 #### [facility] CLIA [id number] [address] [place] [address] [place] Lymphocytes (Bld) [#/Vol] 2.44 10*3/uL Normal 1.00-4.00 [facility] Comment on above: Order Comment: Speci men Type: BLOOD SPECIMEN Ordering Facility: [facility] Address: [address] [place] [address] Performed By: #### 3 969-3 #### [facility] CLIA [id number] [address] [place] [address] [place] Lymphocytes/100 WBC (Bld) 21.8 % Normal [facility] Comment on above: Order Comment: Speci men Type: BLOOD SPECIMEN Ordering Facility: [facility] Address: [address] [place] [address] Performed By: #### 3 969-3 #### [facility] CLIA [id number] [address] [place] [address] [place] MCH (RBC) [Entitic mass] 30.6 pg Normal 26.0-34.0 [facility] Comment on above: Order Comment: Speci men Type: BLOOD SPECIMEN Ordering Facility: [facility] Address: [address] [place] [address] Performed By: #### 3 969-3 #### [facility] CLIA [id number] [address] [place] [address] [place] MCHC (RBC) [Mass/Vol] 35.4 g/dL Normal 30.5-36.0 [facility] Comment on above: Order Comment: Speci men Type: BLOOD SPECIMEN Ordering Facility: [facility] Address: [address] [place] [address] Performed By: #### 3 969-3 #### [facility] CLIA [id number] [address] [place] [address] [place] MCV (RBC) [Entitic vol] 86.4 fL Normal 80.0-100.0 C [facility] Comment on above: Order Comment: Speci men Type: BLOOD SPECIMEN Ordering Facility: [facility] Address: [address] [place] [address] Performed By: #### 3 969-3 #### [facility] CLIA [id number] [address] [place] [address] [place] Monocytes (Bld) [#/Vol] 0.77 10*3/uL Normal <0.87 [facility] Comment on above: Order Comment: Speci men Type: BLOOD SPECIMEN Ordering Facility: [facility] Address: [address] [place] [address] Performed By: #### 3 969-3 #### [facility] CLIA [id number] [address] [place] [address] [place] Monocytes/100 WBC (Bld) 6.9 % Normal [facility] Comment on above: Order Comment: Speci men Type: BLOOD SPECIMEN Ordering Facility: [facility] Address: [address] [place] [address] Performed By: #### 3 969-3 #### [facility] CLIA [id number] [address] [place] [address] [place] Neutrophils (Bld) [#/Vol] 7.61 10*3/uL High 1.45-7.50 [facility] Comment on above: Order Comment: Speci men Type: BLOOD SPECIMEN Ordering Facility: [facility] Address: [address] [place] [address] Performed By: #### 3 969-3 #### [facility] CLIA [id number] [address] [place] [address] [place] Neutrophils/100 WBC (Bld) 67.9 % Normal [facility] Comment on above: Order Comment: Speci men Type: BLOOD SPECIMEN Ordering Facility: [facility] Address: [address] [place] [address] Performed By: #### 3 969-3 #### [facility] CLIA [id number] [address] [place] [address] [place] Nucleated RBC (Bld) [#/Vol] 10*3/uL Normal <0.01 [facility] Comment on above: Order Comment: Speci men Type: BLOOD SPECIMEN Ordering Facility: [facility] Address: [address] [place] [address] Performed By: #### 3 969-3 #### [facility] CLIA [id number] [address] [place] [address] [place] Nucleated RBC/100 WBC (Bld) [Ratio] 0.0 /100 WBC Normal [facility] Comment on above: Order Comment: Speci men Type: BLOOD SPECIMEN Ordering Facility: [facility] Address: [address] [place] [address] Performed By: #### 3 969-3 #### [facility] CLIA [id number] [address] [place] [address] [place] Platelet mean volume (Bld) [Entitic vol] 10.7 fL Normal 9.0-12.7 [facility] Comment on above: Order Comment: Speci men Type: BLOOD SPECIMEN Ordering Facility: [facility] Address: [address] [place] [address] Performed By: #### 3 969-3 #### [facility] CLIA [id number] [address] [place] [address] [place] Platelets (Bld) [#/Vol] 276 10*3/uL Normal 150-400 [facility] Comment on above: Order Comment: Speci men Type: BLOOD SPECIMEN Ordering Facility: [facility] Address: [address] [place] [address] Performed By: #### 3 969-3 #### [facility] CLIA [id number] [address] [place] [address] [place] RBC (Bld) [#/Vol] 4.28 10*6/uL Normal 4.20-6.00 [facility] Comment on above: Order Comment: Speci men Type: BLOOD SPECIMEN Ordering Facility: [facility] Address: [address] [place] [address] Performed By: #### 3 969-3 #### [facility] CLIA [id number] [address] [place] [address] [place] WBC (Bld) [#/Vol] 11.21 10*3/uL High 3.70-11.00 [facility] Comment on above: Order Comment: Speci men Type: BLOOD SPECIMEN Ordering Facility: [facility] Address: [address] [place] [address] Performed By: #### 3 969-3 #### [facility] CLIA [id number] [address] [place] [address] [place] [id number] [facility] 36on 10-02-2024 36 Recent Visits Date Type Provider Dept 05/02/24 Office Visit Nena Pardo DO [facility] Fp 03/29/24 Office Visit Nena Pardo DO [facility] Showing recent visits within past 365 days and meeting all other requirements Future Appointments Date Type Provider Dept 10/07/24 Appointment Nena Pardo DO [facility] Showing future appointments within next 90 days [...] (H) 03/29/2024 NONHDLCHOLES 135 (H) 03/29/2024 Normal [facility] Basic metabolic 2000 panelon 09-30-2024 Anion gap [Moles/Vol] 13 mmol/L 8 - 15 mmol/L [facility] Calcium [Mass/Vol] 9.1 mg/dL 8.5 - 10. 2 mg/dL [facility] Chloride [Moles/Vol] 106 mmol/L 98 - 10 7 mmol/L [facility] CO2 [Moles/Vol] 22 mmol/L 22 - 30 mmol/L [facility] Creatinine [Mass/Vol] 0.88 mg/dL 0.73 - 1.22 mg/dL [facility] GFR/1.73 sq M.predicted among non-blacks MDRD (S/P/Bld) [Vol rate/Area] 100 mL/min/{1.73_m2} - PINF [facility] Comment on above: Estimated Glomerular Filtration [...] 139 mg/dL High 74 - 99 mg/dL [facility] Comment on above: The [place] Di[employer] Association (ADA) provides guidance for [...] Standards of Medical Care in Diabetes 2016, [place] [employer]. Diabetes Care. 2016.39(Suppl 1). Interpretation and review of laboratory results Abnormal [facility] Potassium [Moles/Vol] 3.8 mmol/L 3.7 - 5.1 mmol/L [facility] Sodium [Moles/Vol] 141 mmol/L 136 - 144 mmol/L [facility] Urea nitrogen [Mass/Vol] 18 mg/dL 9 - 24 mg/dL [facility] Anion gap [Moles/Vol] 13 mmol/L Normal 8-15 [facility] Comment on above: Order Comment: Speci men Type: BLOOD SPECIMEN Ordering Facility: [facility] Address: [address] [place] [address] Performed By: #### 5 8410-2 #### [facility] CLIA [id number] [address] [place] [address] [place] Calcium [Mass/Vol] 9.1 mg/dL Normal 8.5-10.2 [facility] Comment on above: Order Comment: Speci men Type: BLOOD SPECIMEN Ordering Facility: [facility] Address: [address] [place] [address] Performed By: #### 5 8410-2 #### [facility] CLIA [id number] [address] [place] [address] [place] Chloride [Moles/Vol] 106 mmol/L Normal 98-107 [facility] Comment on above: Order Comment: Speci men Type: BLOOD SPECIMEN Ordering Facility: [facility] Address: [address] [place] [address] Performed By: #### 5 8410-2 #### [facility] CLIA [id number] [address] [place] [address] [place] CO2 [Moles/Vol] 22 mmol/L Normal 22-30 [facility] Comment on above: Order Comment: Speci men Type: BLOOD SPECIMEN Ordering Facility: [facility] Address: [address] [place] [address] Performed By: #### 5 8410-2 #### [facility] CLIA [id number] [address] [place] [address] [place] Creatinine [Mass/Vol] 0.88 mg/dL Normal 0.73-1.22 [facility] Comment on above: Order Comment: Speci men Type: BLOOD SPECIMEN Ordering Facility: [facility] Address: [address] [place] [address] Performed By: #### 5 8410-2 #### [facility] CLIA [id number] [address] [place] [address] [place] Creatinine and Glomerular filtration rate.predicted panel (S/P/Bld) 100 mL/min/1.73m??? Normal >=60 [facility] Comment on above: Order Comment: Jonas florez Type: BLOOD SPECIMEN Ordering Facility: [facility] Address: [address] [place] [address] Result Comment: Bianca mated Glomerular Filtration Rate [...] #### 5 8410-2 #### [facility] CLIA [id number] [address] [place] [address] [place] Glucose [Mass/Vol] 139 mg/dL High 74-99 [facility] Comment on above: Order Comment: Jonas flroez Type: BLOOD SPECIMEN Ordering Facility: [facility] Address: [address] [place] [address] Result Comment: The [place] Diabetes Association (ADA) provides guidance for cutoff [...] Standards of Medical Care in Diabetes 2016, [place] [employer]. Diabetes Care. 2016.39(Suppl 1). Performed By: #### 5 8410-2 #### [facility] CLIA [id number] [address] [place] [id number] [place] Potassium [Moles/Vol] 3.8 mmol/L Normal 3.7-5.1 [facility] Comment on above: Order Comment: Jonas florez Type: BLOOD SPECIMEN Ordering Facility: [facility] Address: [address] [place] [address] Performed By: #### 5 8410-2 #### [facility] CLIA [id number] [address] STATES [facility] Sodium [Moles/Vol] 141 mmol/L Normal 136-144 [facility] Comment on above: Order Comment: Speci men Type: BLOOD SPECIMEN Ordering Facility: [facility] Address: [address] [place] [address] Performed By: #### 5 8410-2 #### [facility] CLIA [id number] [address] STATES [facility] Urea nitrogen [Mass/Vol] 18 mg/dL Normal 9-24 [facility] Comment on above: Order Comment: Speci men Type: BLOOD SPECIMEN Ordering Facility: [facility] Address: [address] [place] [address] Performed By: #### 5 8410-2 #### [facility] CLIA [id number] [address] STATES OF [facility] CBC W Auto Differential pane l (Bld)on 09-30-2024 Basophils (Bld) [#/Vol] 0.04 10*3/uL [facility] Basophils/100 WBC (Bld) 0.6 % [facility] Differential cell count method Nom (Bld) Auto [facility] Eosinophils (Bld) [#/Vol] 0.16 10*3/uL [facility] Eosinophils/100 WBC (Bld) 2.4 % [facility] Erythrocyte distribution width (RBC) [Ratio] 12.4 % 11.5 - 15.0 % [facility] Hematocrit (Bld) [Volume fraction] 38.8 % Low 39.0 - 51.0 % [facility] Hemoglobin (Bld) [Mass/Vol] 13.7 g/dL 13.0 - 17.0 g/dL [facility] Immature granulocytes (Bld) [#/Vol] [facility] Immature granulocytes/100 WBC (Bld) 0.3 % [facility] Interpretation and review of laboratory results Abnormal [facility] Lymphocytes (Bld) [#/Vol] 2.27 10*3/uL [facility] Lymphocytes/100 WBC (Bld) 33.7 % [facility] MCH (RBC) [Entitic mass] 30.5 pg 26.0 - 34.0 pg [facility] MCHC (RBC) [Mass/Vol] 35.3 g/dL 30.5 - 36.0 g/dL [facility] MCV (RBC) [Entitic vol] 86.4 fL 80.0 - 100.0 fL [facility] Monocytes (Bld) [#/Vol] 0.54 10*3/uL [facility] Monocytes/100 WBC (Bld) 8 % C [facility] Neutrophils (Bld) [#/Vol] 3.71 10*3/uL [facility] Neutrophils/100 WBC (Bld) 55 % [facility] Nucleated RBC (Bld) [#/Vol] NINF [facility] Nucleated RBC/100 WBC (Bld) [Ratio] 0 % /100 WBC [facility] Platelet mean volume (Bld) [Entitic vol] 10.8 fL 9.0 - 12.7 fL [facility] Platelets (Bld) [#/Vol] 216 10*3/uL [facility] RBC (Bld) [#/Vol] 4.49 10*6/uL 4.20 - 6.0 0 m/uL [facility] WBC (Bld) [#/Vol] 6.74 10*3/uL [facility] Basophils (Bld) [#/Vol] 0.04 10*3/uL Normal <0.11 [facility] Comment on above: Order Comment: Speci men Type: BLOOD SPECIMENOrdering Facility: [facility] Address: [address] [place] [address] Performed By: #### 5 7021-8 ####[facility] [id number] [address] OF [facility] Basophils/100 WBC (Bld) 0.6 % Normal C [facility] Comment on above: Order Comment: Speci men Type: BLOOD SPECIMENOrdering Facility: [facility] Address: [address] [place] [address] Performed By: #### 5 7021-8 ####[facility] [id number] [place] [address] [place] Differential cell count method Nom (Bld) Auto Normal [facility] Comment on above: Order Comment: Speci men Type: BLOOD SPECIMENOrdering Facility: [facility] Address: [address] [place] [address] Performed By: #### 5 7021-8 ####[facility] [id number] [address] [place] Eosinophils (Bld) [#/Vol] 0.16 10*3/uL Normal <0.46 [facility] Comment on above: Order Comment: Speci men Type: BLOOD SPECIMENOrdering Facility: [facility] Address: [address] [place] [address] Performed By: #### 5 7021-8 ####[facility] [id number] [address] Eosinophils/100 WBC (Bld) 2.4 % Normal [facility] Comment on above: Order Comment: Speci men Type: BLOOD SPECIMENOrdering Facility: [facility] Address: [address] [place] [address] Performed By: #### 5 7021-8 ####[facility] [id number] [address] [place] Erythrocyte distribution width (RBC) [Ratio] 12.4 % Normal 11.5-15.0 [facility] Comment on above: Order Comment: Speci men Type: BLOOD SPECIMENOrdering Facility: [facility] Address: [address] [place] [address] Performed By: #### 5 7021-8 ####[facility] [id number] [address] [place] Hematocrit (Bld) [Volume fraction] 38.8 % Low 39.0-51.0 [facility] Comment on above: Order Comment: Speci men Type: BLOOD SPECIMENOrdering Facility: [facility] Address: [address] [place] [address] Performed By: #### 5 7021-8 ####[facility] [id number] [address] [place] Hemoglobin (Bld) [Mass/Vol] 13.7 g/dL Normal 13.0-17.0 [facility] Comment on above: Order Comment: Speci men Type: BLOOD SPECIMENOrdering Facility: [facility] Address: [address] [place] [address] Performed By: #### 5 7021-8 ####[facility] [id number] [place] [address] [place] Immature granulocytes (Bld) [#/Vol] 10*3/uL Normal <0.10 [facility] Comment on above: Order Comment: Speci men Type: BLOOD SPECIMENOrdering Facility: [facility] Address: [address] [place] [address] Performed By: #### 5 7021-8 ####[facility] [id number] [place] [address] [place] Immature granulocytes/100 WBC (Bld) 0.3 % Normal [facility] Comment on above: Order Comment: Speci men Type: BLOOD SPECIMENOrdering Facility: [facility] Address: [address] [place] [address] Performed By: #### 5 7021-8 ####[facility] [id number] [place] [address] [place] Lymphocytes (Bld) [#/Vol] 2.27 10*3/uL Normal 1.00-4.00 [facility] Comment on above: Order Comment: Speci men Type: BLOOD SPECIMENOrdering Facility: [facility] Address: [address] [place] [address] Performed By: #### 5 7021-8 ####[facility] [id number] [place] [id number] [place] Lymphocytes/100 WBC (Bld) 33.7 % Normal [facility] Comment on above: Order Comment: Speci men Type: BLOOD SPECIMENOrdering Facility: [facility] Address: [address] [place] [address] Performed By: #### 5 7021-8 ####[facility] [id number] [address] MCH (RBC) [Entitic mass] 30.5 pg Normal 26.0-34.0 [facility] Comment on above: Order Comment: Speci men Type: BLOOD SPECIMENOrdering Facility: [facility] Address: [address] [place] [address] Performed By: #### 5 7021-8 ####[facility] [id number] [address] [place] MCHC (RBC) [Mass/Vol] 35.3 g/dL Normal 30.5-36.0 [facility] Comment on above: Order Comment: Speci men Type: BLOOD SPECIMENOrdering Facility: [facility] Address: [address] [place] [address] Performed By: #### 5 7021-8 ####[facility] [id number] [address] MCV (RBC) [Entitic vol] 86.4 fL Normal 80.0-100.0 C [facility] Comment on above: Order Comment: Speci men Type: BLOOD SPECIMENOrdering Facility: [facility] Address: [address] [place] [address] Performed By: #### 5 7021-8 ####[facility] [id number] [address] OF [facility] Monocytes (Bld) [#/Vol] 0.54 10*3/uL Normal <0.87 [facility] Comment on above: Order Comment: Speci men Type: BLOOD SPECIMENOrdering Facility: [facility] Address: [address] [place] [address] Performed By: #### 5 7021-8 ####[facility] [id number] [address] Monocytes/100 WBC (Bld) 8.0 % Normal C [facility] Comment on above: Order Comment: Speci men Type: BLOOD SPECIMENOrdering Facility: [facility] Address: [address] [place] [address] Performed By: #### 5 7021-8 ####[facility] [id number] [place] [address] [place] Neutrophils (Bld) [#/Vol] 3.71 10*3/uL Normal 1.45-7.50 [facility] Comment on above: Order Comment: Speci men Type: BLOOD SPECIMENOrdering Facility: [facility] Address: [address] [place] [address] Performed By: #### 5 7021-8 ####[facility] [id number] [place] [address] [place] Neutrophils/100 WBC (Bld) 55.0 % Normal [facility] Comment on above: Order Comment: Speci men Type: BLOOD SPECIMENOrdering Facility: [facility] Address: [address] [place] [address] Performed By: #### 5 7021-8 ####[facility] [id number] [place] [address] [place] Nucleated RBC (Bld) [#/Vol] 10*3/uL Normal <0.01 [facility] Comment on above: Order Comment: Speci men Type: BLOOD SPECIMENOrdering Facility: [facility] Address: [address] [place] [address] Performed By: #### 5 7021-8 ####[facility] [id number] [place] [id number] [place] Nucleated RBC/100 WBC (Bld) [Ratio] 0.0 /100 WBC Normal [facility] Comment on above: Order Comment: Speci men Type: BLOOD SPECIMENOrdering Facility: [facility] Address: [address] [place] [address] Performed By: #### 5 7021-8 ####[facility] [id number] [place] [address] [place] Platelet mean volume (Bld) [Entitic vol] 10.8 fL Normal 9.0-12.7 [facility] Comment on above: Order Comment: Speci men Type: BLOOD SPECIMENOrdering Facility: [facility] Address: [address] [place] [address] Performed By: #### 5 7021-8 ####[facility] [id number] [place] [address] [place] Platelets (Bld) [#/Vol] 216 10*3/uL Normal 150-400 [facility] Comment on above: Order Comment: Speci men Type: BLOOD SPECIMENOrdering Facility: [facility] Address: [address] [place] [address] Performed By: #### 5 7021-8 ####[facility] [id number] [place] [id number] [place] RBC (Bld) [#/Vol] 4.49 10*6/uL Normal 4.20-6.00 [facility] Comment on above: Order Comment: Speci men Type: BLOOD SPECIMENOrdering Facility: [facility] Center Address: [address] [place] [address] Performed By: #### 5 7021-8 ####[facility] LABORATORYCLIA [id number] [place] [address] [place] WBC (Bld) [#/Vol] 6.74 10*3/uL Normal 3.70-11.00 [facility] Comment on above: Order Comment: Speci men Type: BLOOD SPECIMENOrdering Facility: [facility] Address: [address] [place] [address] Performed By: #### 5 7021-8 ####[facility] LABORATORYCLIA [id number] [place] [id number] [facility] [place] CBC panel Auto (Bld)on 09-29 Erythrocyte distribution width (RBC) [Ratio] 12.5 % Normal 11.5-15.0 [facility] Comment on above: Order Comment: Speci men Type: BLOOD SPECIMENOrdering Facility: [facility] Address: [address] [place] [address] Performed By: #### 5 8410-2 ####[facility] LABCLIA [id number] [address] [place] Hematocrit (Bld) [Volume fraction] 37.9 % Low 39.0-51.0 [facility] Comment on above: Order Comment: Speci men Type: BLOOD SPECIMENOrdering Facility: [facility] Address: [address] [place] [address] Performed By: #### 5 8410-2 ####[facility] LABIA [id number] [place] [address] [place] Hemoglobin (Bld) [Mass/Vol] 13.8 g/dL Normal 13.0-17.0 [facility] Comment on above: Order Comment: Speci men Type: BLOOD SPECIMENOrdering Facility: [facility] Address: [address] [place] [address] Performed By: #### 5 8410-2 ####[facility] LABIA [id number] [address] [place] MCH (RBC) [Entitic mass] 30.9 pg Normal 26.0-34.0 [facility] Comment on above: Order Comment: Speci men Type: BLOOD SPECIMENOrdering Facility: [facility] Address: [address] [place] [address] Performed By: #### 5 8410-2 ####[facility] LABIA [id number] [place] [address] [place] MCHC (RBC) [Mass/Vol] 36.4 g/dL High 30.5-36.0 [facility] Comment on above: Order Comment: Speci men Type: BLOOD SPECIMENOrdering Facility: [facility] Address: [address] [place] [address] Performed By: #### 5 8410-2 ####[facility] LABIA [id number] [place] [address] [place] MCV (RBC) [Entitic vol] 85.0 fL Normal 80.0-100.0 [facility] Comment on above: Order Comment: Speci men Type: BLOOD SPECIMENOrdering Facility: [facility] Address: [address] [place] [address] Performed By: #### 5 8410-2 ####[facility] LABIA [id number] [place] [address] [place] Nucleated RBC (Bld) [#/Vol] 10*3/uL Normal <0.01 [facility] Comment on above: Order Comment: Speci men Type: BLOOD SPECIMENOrdering Facility: [facility] Address: [address] [place] [address] Performed By: #### 5 8410-2 ####[facility] LABIA [id number] [place] [address] [place] Platelet mean volume (Bld) [Entitic vol] 10.3 fL Normal 9.0-12.7 [facility] Comment on above: Order Comment: Speci men Type: BLOOD SPECIMENOrdering Facility: [facility] Address: [address] [place] [address] Performed By: #### 5 8410-2 ####[facility] LABIA [id number] [place] [address] [place] Platelets (Bld) [#/Vol] 189 10*3/uL Normal 150-400 [facility] Comment on above: Order Comment: Speci men Type: BLOOD SPECIMENOrdering Facility: [facility] Address: [address] [place] [address] Performed By: #### 5 8410-2 ####[facility] LABIA [id number] [place] [address] [place] RBC (Bld) [#/Vol] 4.46 10*6/uL Normal 4.20-6.00 [facility] Comment on above: Order Comment: Speci men Type: BLOOD SPECIMENOrdering Facility: [facility] Address: [address] [place] [address] Performed By: #### 5 8410-2 ####[facility] LABCLIA [id number] [place] [id number] [place] WBC (Bld) [#/Vol] 6.32 10*3/uL Normal 3.70-11.00 [facility] Comment on above: Order Comment: Speci men Type: BLOOD SPECIMENOrdering Facility: [facility] Address: [address] [place] [address] Performed By: #### 5 8410-2 ####[facility] LABCLIA [id number] [place] [id number] [place] NUTRITIONon 09-29-2024 NUTRITION HNO ID: [id number] Author: VIKKI MONTESINOS DTR Service: Nutrition Therapy Author Type: High School Biology Teacher Type: Nutrition Filed: 09/29/2024 11:02 Note Text: NUTRITION THERAPY LACE WEAVER NOTE SERVICE DATE: 09/29/2024 SERVICE TIME: 1000 [...] September 29, 2024 TIME: 11:02 AM Normal [facility] Renal function 2000 panelon 09-29-2024 Albumin [Mass/Vol] 3.6 g/dL Low 3.9-4.9 [facility] Comment on above: Order Comment: Speci men Type: BLOOD SPECIMEN [facility] Address: [address] [place] [address] Performed By: #### 2 4362-6 #### [facility] CLIA [id number] [address] [place] [address] [place] Anion gap [Moles/Vol] 10 mmol/L Normal 8-15 [facility] Comment on above: Order Comment: Speci men Type: BLOOD SPECIMEN [facility] Address: [address] [place] [address] Performed By: #### 2 4362-6 #### [facility] CLIA [id number] [address] [place] [address] [place] Calcium [Mass/Vol] 9.2 mg/dL Normal 8.5-10.2 [facility] Comment on above: Order Comment: Speci men Type: BLOOD SPECIMEN [facility] Address: [address] [place] [address] Performed By: #### 2 4362-6 #### [facility] CLIA [id number] [address] [place] [address] [place] Chloride [Moles/Vol] 107 mmol/L Normal 98-107 [facility] Comment on above: Order Comment: Speci men Type: BLOOD SPECIMEN [facility] Address: [address] [place] [address] Performed By: #### 2 4362-6 #### [facility] CLIA [id number] [address] [place] [address] [place] CO2 [Moles/Vol] 23 mmol/L Normal 22-30 [facility] Comment on above: Order Comment: Speci men Type: BLOOD SPECIMEN [facility] Address: [address] [place] [address] Performed By: #### 2 4362-6 #### [facility] CLIA [id number] [address] [place] [address] [place] Creatinine [Mass/Vol] 0.92 mg/dL Normal 0.73-1.22 [facility] Comment on above: Order Comment: Speci men Type: BLOOD SPECIMEN [facility] Address: [address] [place] [address] Performed By: #### 2 4362-6 #### [facility] CLIA [id number] [address] [place] [address] [place] Creatinine and Glomerular filtration rate.predicted panel (S/P/Bld) 96 mL/min/1.73m??? Normal >=60 [facility] Comment on above: Order Comment: Speci men Type: BLOOD SPECIMEN [facility] Address: [address] [place] [address] Result Comment: Bianca mated Glomerular Filtration Rate [...] GFR. Performed By: #### 2 4362-6 #### [facility] CLIA [id number] [address] [place] [address] [place] Glucose [Mass/Vol] 144 mg/dL High 74-99 [facility] Comment on above: Order Comment: Speci men Type: BLOOD SPECIMEN [facility] Address: [address] [place] [address] Result Comment: The [place] [employer] (ADA) provides guidance for cutoff [...] Standards of Medical Care in Diabetes 2016, [place] [employer]. Diabetes Care. 2016.39(Suppl 1). Performed By: #### 2 4362-6 #### [facility] CLIA [id number] [address] [place] [address] [place] Phosphate [Mass/Vol] 3.3 mg/dL Normal 2.7-4.8 [facility] Comment on above: Order Comment: Jonas florez Type: BLOOD SPECIMEN [facility] Address: [address] [place] [address] Performed By: #### 2 4362-6 #### [facility] CLIA [id number] [address] [place] [address] [place] Potassium [Moles/Vol] 3.7 mmol/L Normal 3.7-5.1 [facility] Comment on above: Order Comment: Jonas florez Type: BLOOD SPECIMEN [facility] Address: [address] [place] [address] Performed By: #### 2 4362-6 #### [facility] CLIA [id number] [address] [place] [address] [place] Sodium [Moles/Vol] 140 mmol/L Normal 136-144 [facility] Comment on above: Order Comment: Awaisi men Type: BLOOD SPECIMEN [facility] Address: [address] [place] [address] Performed By: #### 2 4362-6 #### [facility] CLIA [id number] [address] [place] [address] [place] Urea nitrogen [Mass/Vol] 18 mg/dL Normal 9-24 [facility] Comment on above: Order Comment: Speci men Type: BLOOD SPECIMEN [facility] Address: [address] [place] [address] Performed By: #### 2 4362-6 #### [facility] CLIA [id number] [address] [place] [address] [place] CBC panel Auto (Bld)on 09-28 Erythrocyte distribution width (RBC) [Ratio] 12.9 % Normal 11.5-15.0 [facility] Comment on above: Order Comment: Speci men Type: BLOOD SPECIMENOrdering Facility: [facility] Address: [address] [place] [address] Performed By: #### 5 8410-2 ####[facility] LABCLIA [id number] [place] [address] [place] Hematocrit (Bld) [Volume fraction] 41.6 % Normal 39.0-51.0 [facility] Comment on above: Order Comment: Speci men Type: BLOOD SPECIMENOrdering Facility: [facility] Address: [address] [place] [address] Performed By: #### 5 8410-2 ####[facility] LABCLIA [id number] [place] [address] [place] Hemoglobin (Bld) [Mass/Vol] 14.4 g/dL Normal 13.0-17.0 [facility] Comment on above: Order Comment: Speci men Type: BLOOD SPECIMENOrdering Facility: [facility] Address: [address] [place] [address] Performed By: #### 5 8410-2 ####[facility] LABCLIA [id number] [place] [id number] [place] MCH (RBC) [Entitic mass] 30.1 pg Normal 26.0-34.0 [facility] Comment on above: Order Comment: Speci men Type: BLOOD SPECIMENOrdering Facility: [facility] Address: [address] [place] [address] Performed By: #### 5 8410-2 ####[facility] LABCLIA [id number] [place] [address] [place] MCHC (RBC) [Mass/Vol] 34.6 g/dL Normal 30.5-36.0 [facility] Comment on above: Order Comment: Speci men Type: BLOOD SPECIMENOrdering Facility: [facility] Address: [address] [place] [address] Performed By: #### 5 8410-2 ####[facility] LABCLIA [id number] [place] [address] [place] MCV (RBC) [Entitic vol] 86.8 fL Normal 80.0-100.0 [facility] Comment on above: Order Comment: Speci men Type: BLOOD SPECIMENOrdering Facility: [facility] Address: [address] [place] [address] Performed By: #### 5 8410-2 ####[facility] LABIA [id number] [place] [address] [place] Nucleated RBC (Bld) [#/Vol] 10*3/uL Normal <0.01 [facility] Comment on above: Order Comment: Speci men Type: BLOOD SPECIMENOrdering Facility: [facility] Address: [address] [place] [address] Performed By: #### 5 8410-2 ####[facility] LABCLIA [id number] [place] [address] [place] Platelet mean volume (Bld) [Entitic vol] 10.3 fL Normal 9.0-12.7 [facility] Comment on above: Order Comment: Speci men Type: BLOOD SPECIMENOrdering Facility: [facility] Address: [address] [place] [address] Performed By: #### 5 8410-2 ####[facility] LABCLIA [id number] [place] [address] [place] Platelets (Bld) [#/Vol] 180 10*3/uL Normal 150-400 [facility] Comment on above: Order Comment: Speci men Type: BLOOD SPECIMENOrdering Facility: [facility] Address: [address] [place] [address] Performed By: #### 5 8410-2 ####[facility] [id number] [place] [address] [place] RBC (Bld) [#/Vol] 4.79 10*6/uL Normal 4.20-6.00 [facility] Comment on above: Order Comment: Speci men Type: BLOOD SPECIMENOrdering Facility: [facility] Address: [address] [place] [address] Performed By: #### 5 8410-2 ####[facility] [id number] [place] [address] [place] WBC (Bld) [#/Vol] 6.29 10*3/uL Normal 3.70-11.00 [facility] Comment on above: Order Comment: Speci men Type: BLOOD SPECIMENOrdering Facility: [facility] Address: [address] [place] [address] Performed By: #### 5 8410-2 ####[facility] [id number] [place] [id number] [place] CONSULT PROGon 09-28-2024 CONSULT PROG HNO ID: [id number] Author: CHARLA GONZALES APRN.DIESEL POWER SHOVEL OPERATOR Service: Endocrinology Author Type: Nurse Practitioner Type: Consult Progress Note Filed: 09/28/2024 17:55 Note Text: DIABETES CARE TEAM NOTE SERVICE DATE: 09/28/2024 SERVICE TIME: 6:37 AM Subjective Summary of History from Prior Record: Consult Date: 09/23/24 HPI, and DM history and a portion of my Impression and Plan have been copied from AIDEN Peter note on 09/27/24. Today's changes are noted in bold text. My note reflects my medical decision making from today, and my recommendations will be communicated via the Electronic Health Record. Patient with slurred speech, unable to understand him. I called pt's who told me she does not know what medication he takes he was doing his own meds." Information obtained from EMR HPI: Mr. Evangelista [...] (Oral) Resp 20 Ht 170.2 cm (5' 7") Wt 123.2 kg (271 lb 9.7 oz) [...] 3AM 09/22/2024 186 09/23/2024 262A2 302A4 255A6 Urtjsc00 172A2 161A2 09/24/2024 170A4+2 246A4+4 Eebxwk23 196A4+2 227A4 185A2 09/25/2024 163A2+5 213A5+4 Ouirqf85 160A5+2 115 132 /6 148 A5 183 A5+2 Lantus 20 181 A5+2 144 129 3/ 135 251 A6 lantus 20 170 A2 [...] prescribed b (more content not included)... Normal [facility] CT BRAIN WO IVCONon 09-29-19 CT BRAIN WO IVCON * * *Final Report* * * DATE OF EXAM: Sep 28 2024 3:00PM [facility] 0504 - CT BRAIN WO IVCON / [...] conversion. This is consistent with a thalamic business process architect posterior circulation subacute nonhemorrhagic infarct. Stable remaining aupnj-gseon-jlgf tissues without any additional disease. 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 Transport Truck Driver: LILO Transcribe Date/Time: Sep 28 2024 3:23P Dictated by : ROHIT OROURKE MD This examination was interpreted and the report reviewed and electronically signed by: ROHIT OROURKE MD on Sep 28 2024 3:26PM EST [id number] CN Normal [facility] Renal function 2000 panelon 09-28-2024 Albumin [Mass/Vol] 3.7 g/dL Low 3.9-4.9 [facility] Comment on above: Order Comment: Speci men Type: BLOOD SPECIMENOrdering Facility: [facility] Address: [address] [place] [address] Performed By: #### 2 4362-6 ####[facility] LABCLIA [id number] [place] [id number] [place] Anion gap [Moles/Vol] 14 mmol/L Normal 8-15 [facility] Comment on above: Order Comment: Speci men Type: BLOOD SPECIMENOrdering Facility: [facility] Address: [address] [place] [address] Performed By: #### 2 4362-6 ####[facility] LABCLIA [id number] [address] [address] [place] Calcium [Mass/Vol] 9.1 mg/dL Normal 8.5-10.2 [facility] Comment on above: Order Comment: Speci men Type: BLOOD SPECIMENOrdering Facility: [facility] Address: [address] [place] [address] Performed By: #### 2 4362-6 ####[facility] LABCLIA [id number] [facility] [address] [address] [place] Chloride [Moles/Vol] 107 mmol/L Normal 98-107 [facility] Comment on above: Order Comment: Speci men Type: BLOOD SPECIMENOrdering Facility: [facility] Address: [address] [place], [place] [address] Performed By: #### 2 4362-6 ####[facility] LABCLIA [id number] [facility] [place] [address] [place] CO2 [Moles/Vol] 22 mmol/L Normal 22-30 [facility] Comment on above: Order Comment: Speci men Type: BLOOD SPECIMENOrdering Facility: [facility] Address: [address] [place] [address] Performed By: #### 2 4362-6 ####[facility] LABCLIA [id number] [place] [id number] [place] Creatinine [Mass/Vol] 0.88 mg/dL Normal 0.73-1.22 [facility] Comment on above: Order Comment: Speci men Type: BLOOD SPECIMENOrdering Facility: [facility] Address: [address] [place] [address] Performed By: #### 2 4362-6 ####[facility] LABIA [id number] [address] STATES OF [facility] Creatinine and Glomerular filtration rate.predicted panel (S/P/Bld) 100 mL/min/1.73m??? Normal >=60 [facility] Comment on above: Order Comment: Speci men Type: BLOOD SPECIMENOrdering Facility: [facility] Address: [address] [place] [address] Result Comment: Bianca mated Glomerular Filtration Rate [...] actual GFR. Performed By: #### 2 4362-6 ####[facility] LABCLIA [id number] [place] [id number] [place] Glucose [Mass/Vol] 108 mg/dL High 74-99 [facility] Comment on above: Order Comment: Speci men Type: BLOOD SPECIMENOrdering Facility: [facility] Address: [address], [place] [address] Result Comment: The [place] [employer] (ADA) provides guidance for cutoff [...] Standards of Medical Care in Diabetes 2016, [place] [employer]. Diabetes Care. 2016.39(Suppl 1). Performed By: #### 2 4362-6 ####[facility] [id number] [place] [address] [place] Phosphate [Mass/Vol] 2.7 mg/dL Normal 2.7-4.8 [facility] Comment on above: Order Comment: Speci men Type: BLOOD SPECIMENOrdering Facility: [facility] Address: [address] [place] [address] Performed By: #### 2 4362-6 ####[facility] [id number] [place] [address] [place] Potassium [Moles/Vol] 3.6 mmol/L Low 3.7-5.1 [facility] Comment on above: Order Comment: Speci men Type: BLOOD SPECIMENOrdering Facility: [facility] Address: [address] [place] [address] Performed By: #### 2 4362-6 ####[facility] [id number] [place] [address] [place] Sodium [Moles/Vol] 143 mmol/L Normal 136-144 [facility] Comment on above: Order Comment: Speci men Type: BLOOD SPECIMENOrdering Facility: [facility] Address: [address] [place] [address] Performed By: #### 2 4362-6 ####[facility] LABCLIA [id number] [address] [address] [place] Urea nitrogen [Mass/Vol] 17 mg/dL Normal 9-24 [facility] Comment on above: Order Comment: Speci men Type: BLOOD SPECIMENOrdering Facility: [facility] Address: [address] [place] [address] Performed By: #### 2 4362-6 ####[facility] LABCLIA [id number] [address] [address] [place] CASE MANAGEMon 09-27-2024 CASE MANAGEM HNO ID: [id number] Author: ADRIANA ALCANTAR, ? Service: ? Author Type: ? Type: Care Mgt Progress Note Filed: 09/27/2024 16:33 Note Text: [facility] PRECERT NOTE [facility] [employer] approved Inpatient Re[facility] Facility for [facility]. Precert approved through 10/08/2024. For any additional questions regarding approvals, transport or care management needs, please contact the CM assigned to this patient in the Treatment Team. SIGNATURE: Adriana Alcantar DATE: September 27, 2024 TIME: 4:32 PM Normal [facility] CBC panel Auto (Bld)on 09-27 Erythrocyte distribution width (RBC) [Ratio] 12.7 % Normal 11.5-15.0 [facility] Comment on above: Order Comment: Speci men Type: BLOOD SPECIMEN [facility] Address: [address] [place] [address] Performed By: #### 5 8410-2 #### [facility] CLIA [id number] [address] [place] [address] [place] Hematocrit (Bld) [Volume fraction] 41.8 % Normal 39.0-51.0 [facility] Comment on above: Order Comment: Speci men Type: BLOOD SPECIMEN [facility] Address: [address] [place] [address] Performed By: #### 5 8410-2 #### [facility] CLIA [id number] [address] [place] [address] [place] Hemoglobin (Bld) [Mass/Vol] 14.4 g/dL Normal 13.0-17.0 [facility] Comment on above: Order Comment: Speci men Type: BLOOD SPECIMEN [facility] Address: [address] [place] [address] Performed By: #### 5 8410-2 #### [facility] CLIA [id number] [address] [place] [address] [place] MCH (RBC) [Entitic mass] 30.2 pg Normal 26.0-34.0 [facility] Comment on above: Order Comment: Speci men Type: BLOOD SPECIMEN [facility] Address: [address] [place] [address] Performed By: #### 5 8410-2 #### [facility] CLIA [id number] [address] [place] [address] [place] MCHC (RBC) [Mass/Vol] 34.4 g/dL Normal 30.5-36.0 [facility] Comment on above: Order Comment: Speci men Type: BLOOD SPECIMEN [facility]: [facility] Address: [address] [place] [address] Performed By: #### 5 8410-2 #### [facility] CLIA [id number] [address] [place] [address] [place] MCV (RBC) [Entitic vol] 87.6 fL Normal 80.0-100.0 [facility] Comment on above: Order Comment: Speci men Type: BLOOD SPECIMEN [facility]: [facility] Address: [address] [place] [address] Performed By: #### 5 8410-2 #### [facility] CLIA [id number] [address] [place] [address] [place] Nucleated RBC (Bld) [#/Vol] 10*3/uL Normal <0.01 [facility] Comment on above: Order Comment: Speci men Type: BLOOD SPECIMEN [facility]: [facility] Address: [address] [place] [address] Performed By: #### 5 8410-2 #### [facility] CLIA [id number] [address] [place] [address] [place] Platelet mean volume (Bld) [Entitic vol] 10.0 fL Normal 9.0-12.7 [facility] Comment on above: Order Comment: Speci men Type: BLOOD SPECIMEN Order[facility] Facility: [facility] Address: [address] [place] [address] Performed By: #### 5 8410-2 #### [facility] CLIA [id number] [address] [place] [address] [place] Platelets (Bld) [#/Vol] 181 10*3/uL Normal 150-400 [facility] Comment on above: Order Comment: Speci men Type: BLOOD SPECIMEN [facility]: [facility] Address: [address] [place] [address] Performed By: #### 5 8410-2 #### [facility] CLIA [id number] [address] [place] [address] [place] RBC (Bld) [#/Vol] 4.77 10*6/uL Normal 4.20-6.00 [facility] Comment on above: Order Comment: Speci men Type: BLOOD SPECIMEN Order[facility]: [facility] Address: [address] [place] [address] Performed By: #### 5 8410-2 #### [facility] CLIA [id number] [address] [place] [address] [place] WBC (Bld) [#/Vol] 5.63 10*3/uL Normal 3.70-11.00 [facility] Comment on above: Order Comment: Speci men Type: BLOOD SPECIMEN Ordering Facility: [facility] Address: [address] [place] [address] Performed By: #### 5 8410-2 #### [facility] CLIA [id number] [address] [place] [address] [place] [address] [place] CONSULT PROGon 09-27-2024 CONSULT PROG HNO ID: [id number] Author: CHARLA GONZALES APRN.DIESEL POWER SHOVEL OPERATOR Service: Endocrinology Author Type: Nurse Practitioner Type: [...] he takes he was doing his own meds." Information obtained from EMR HPI: Mr. Evangelista [...] (Oral) Resp 17 Ht 170.2 cm (5' 7") Wt 123.2 kg (271 lb 9.7 oz) [...] 3AM 09/22/2024 186 09/23/2024 262A2 302A4 255A6 [id number] 172A2 161A2 09/24/2024 170A4+2 246A4+4 Puqfgg91 196A4+2 227A4 185A2 09/25/2024 163A2+5 213A5+4 Udkcun63 160A5+2 115 132 3/6 148 A5 183 [...] prescribed by primary team Follow up with rehab care assistant and community relations liaison as recommended. [facility] ([facility] or with his home road design engineer/PCP in 1-2 weeks after discharge. SIGNATURE: Charla Gonzales APRN- TUCKER Endocrinology Metabolic Insti (more content not included)... Normal [facility] Phenytoin Free SerPl-mCncon 09-27-2024 Phenytoin Free [Mass/Vol] 0.5 ug/mL Low 1.0-2.0 [facility] Comment on above: Order Comment: Speci men Type: BLOOD SPECIMEN Ordering Facility: [facility] Address: [address] [place] [address] Result Comment: Refe rence ranges and high/low indicator flags are provided as general guidelines only. The treating physician must determine appropriate target levels/dosing based on the specific clinical situation. Performed By: #### 5 8410-2 #### [facility] CLIA [id number] [address] [place] [address] [place] Renal function 2000 panelon 09-27-2024 Albumin [Mass/Vol] 3.7 g/dL Low 3.9-4.9 [facility] Comment on above: Order Comment: Speci men Type: BLOOD SPECIMEN Ordering Facility: [facility] Address: [address] [place] [address] Performed By: #### 5 8410-2 #### [facility] CLIA [id number] [address] [place] [address] [place] Anion gap [Moles/Vol] 10 mmol/L Normal 8-15 [facility] Comment on above: Order Comment: Speci men Type: BLOOD SPECIMEN Ordering Facility: [facility] Address: [address] [place] [address] Performed By: #### 5 8410-2 #### [facility] CLIA [id number] [address] [place] [address] [place] Calcium [Mass/Vol] 8.9 mg/dL Normal 8.5-10.2 [facility] Comment on above: Order Comment: Speci men Type: BLOOD SPECIMEN Ordering Facility: [facility] Address: [address] [place] [address] Performed By: #### 5 8410-2 #### [facility] CLIA [id number] [address] [place] [address] [place] Chloride [Moles/Vol] 106 mmol/L Normal 98-107 [facility] Comment on above: Order Comment: Speci men Type: BLOOD SPECIMEN Ordering Facility: [facility] Address: [address] [place] [address] Performed By: #### 5 8410-2 #### [facility] CLIA [id number] [address] [place] [address] [place] CO2 [Moles/Vol] 24 mmol/L Normal 22-30 [facility] Comment on above: Order Comment: Speci men Type: BLOOD SPECIMEN Ordering Facility: [facility] Address: [address] [place] [address] Performed By: #### 5 8410-2 #### [facility] CLIA [id number] [address] [place] [address] [place] Creatinine [Mass/Vol] 0.94 mg/dL Normal 0.73-1.22 [facility] Comment on above: Order Comment: Speci men Type: BLOOD SPECIMEN Ordering Facility: [facility] Address: [address] [place] [address] Performed By: #### 5 8410-2 #### [facility] CLIA [id number] [address] Creatinine and Glomerular filtration rate.predicted panel (S/P/Bld) 94 mL/min/1.73m??? Normal >=60 [facility] Comment on above: Order Comment: Speci men Type: BLOOD SPECIMEN Ordering Facility: [facility] Address: [address] [place] [address] Result Comment: Bianca mated Glomerular Filtration Rate [...] #### 5 8410-2 #### [facility] CLIA [id number] [address] [place] [address] [place] Glucose [Mass/Vol] 134 mg/dL High 74-99 [facility] Comment on above: Order Comment: Speci men Type: BLOOD SPECIMEN Ordering Facility: [facility] Address: [address] [place] [address] Result Comment: The [place] [employer] (ADA) provides guidance for cutoff [...] Standards of Medical Care in Diabetes 2016, [place] [employer]. Diabetes Care. 2016.39(Suppl 1). Performed By: #### 5 8410-2 #### [facility] CLIA [id number] [address] [place] [address] [place] Phosphate [Mass/Vol] 3.1 mg/dL Normal 2.7-4.8 [facility] Comment on above: Order Comment: Speci men Type: BLOOD SPECIMEN Ordering Facility: [facility] Address: [address] [place] [address] Performed By: #### 5 8410-2 #### [facility] CLIA [id number] [address] [place] [address] [place] Potassium [Moles/Vol] 3.8 mmol/L Normal 3.7-5.1 [facility] Comment on above: Order Comment: Awaisi men Type: BLOOD SPECIMEN Ordering Facility: [facility] Address: [address] [place] [address] Performed By: #### 5 8410-2 #### [facility] CLIA [id number] [address] [place] [address] [place] Sodium [Moles/Vol] 140 mmol/L Normal 136-144 [facility] Comment on above: Order Comment: Speci men Type: BLOOD SPECIMEN Ordering Facility: [facility] Address: [address] [place] [address] Performed By: #### 5 8410-2 #### [facility] CLIA [id number] [address] [place] [address] [place] Urea nitrogen [Mass/Vol] 16 mg/dL Normal 9-24 [facility] Comment on above: Order Comment: Speci men Type: BLOOD SPECIMEN Ordering Facility: [facility] Address: [address] [place] [address] Performed By: #### 5 8410-2 #### [facility] CLIA [id number] [address] STATES [facility] CBC panel Auto (Bld)on 09-26 Erythrocyte distribution width (RBC) [Ratio] 12.7 % Normal 11.5-15.0 [facility] Comment on above: Order Comment: Speci men Type: BLOOD SPECIMEN Ordering Facility: [facility] Address: [address] [place] [address] Performed By: #### 5 8410-2 #### [facility] CLIA [id number] [address] STATES [facility] Hematocrit (Bld) [Volume fraction] 42.9 % Normal 39.0-51.0 [facility] Comment on above: Order Comment: Speci men Type: BLOOD SPECIMEN Ordering Facility: [facility] Address: [address] [place] [address] Performed By: #### 5 8410-2 #### [facility] CLIA [id number] [address] Hemoglobin (Bld) [Mass/Vol] 15.1 g/dL Normal 13.0-17.0 [facility] Comment on above: Order Comment: Speci men Type: BLOOD SPECIMEN Ordering Facility: [facility] Address: [address] [place] [address] Performed By: #### 5 8410-2 #### [facility] CLIA [id number] [address] [place] MCH (RBC) [Entitic mass] 30.6 pg Normal 26.0-34.0 [facility] Comment on above: Order Comment: Speci men Type: BLOOD SPECIMEN Ordering Facility: [facility] Address: [address] [place] [address] Performed By: #### 5 8410-2 #### [facility] CLIA [id number] [address] [place], [place] [address] [place] [address] [place] MCHC (RBC) [Mass/Vol] 35.2 g/dL Normal 30.5-36.0 [facility] Comment on above: Order Comment: Speci men Type: BLOOD SPECIMEN Ordering Facility: [facility] Address: [address] [place] [address] Performed By: #### 5 8410-2 #### [facility] CLIA [id number] [address] [place] MCV (RBC) [Entitic vol] 87.0 fL Normal 80.0-100.0 [facility] Comment on above: Order Comment: Speci men Type: BLOOD SPECIMEN Ordering Facility: [facility] Address: [address] [place] [address] Performed By: #### 5 8410-2 #### [facility] CLIA [id number] [address] [place] [address] [place] Nucleated RBC (Bld) [#/Vol] 10*3/uL Normal <0.01 [facility] Comment on above: Order Comment: Speci men Type: BLOOD SPECIMEN Ordering Facility: [facility] Address: [address] [place] [address] Performed By: #### 5 8410-2 #### [facility] CLIA [id number] [address] [place] [address] [place] Platelet mean volume (Bld) [Entitic vol] 9.6 fL Normal 9.0-12.7 [facility] Comment on above: Order Comment: Speci men Type: BLOOD SPECIMEN Ordering Facility: [facility] Address: [address] [place] [address] Performed By: #### 5 8410-2 #### [facility] CLIA [id number] [address] [place] Platelets (Bld) [#/Vol] 191 10*3/uL Normal 150-400 [facility] Comment on above: Order Comment: Speci men Type: BLOOD SPECIMEN Ordering Facility: [facility] Address: [address] [place] [address] Performed By: #### 5 8410-2 #### [facility] CLIA [id number] [address] [place] [address] [place] RBC (Bld) [#/Vol] 4.93 10*6/uL Normal 4.20-6.00 [facility] Comment on above: Order Comment: Speci men Type: BLOOD SPECIMEN Ordering Facility: [facility] Address: [address] [place] [address] Performed By: #### 5 8410-2 #### [facility] CLIA [id number] [address] [place] [address] [place] WBC (Bld) [#/Vol] 6.55 10*3/uL Normal 3.70-11.00 [facility] Comment on above: Order Comment: Speci men Type: BLOOD SPECIMEN Ordering Facility: [facility] Address: [address] [place] [address] Performed By: #### 5 8410-2 #### [facility] CLIA [id number] [address] [place] CONSULT PROGon 09-26-2024 CONSULT PROG HNO ID: [id number] Author: CHARLA GONZALES APRN.DIESEL POWER SHOVEL OPERATOR Service: Endocrinology Author Type: Nurse Practitioner Type: [...] he takes he was doing his own meds." Information obtained from EMR HPI: Mr. Evangelista [...] (Oral) Resp 21 Ht 170.2 cm (5' 7") Wt 123.2 kg (271 lb 9.7 oz) [...] 3AM 09/22/2024 186 09/23/2024 262A2 302A4 255A6 Rotizw69 172A2 161A2 09/24/2024 170A4+2 246A4+4 Tgmhqk23 196A4+2 227A4 185A2 09/25/2024 163A2+5 213A5+4 Xpishs27 160A5+2 115 132 09/26 148 A5 183 [...] prescribed by primary team Follow up with rehab care assistant and community relations liaison as recommended. [facility] or with his home road design engineer/PCP in 1-2 weeks after discharge. SIGNATURE: Charla Gonzales APRN- TUCKER Endocrinology Metabolic [place] Pager [phone] Inpatient Endo TOPOGRAPHICAL ENGINEER from 0800 to 1800 After [address] [place] [id number] PATIENT NAME: Evangelista Borrego JR DATE: September 26, 2024 (more content not included)... Normal [facility] Renal function 2000 panelon 09-26-2024 Albumin [Mass/Vol] 3.7 g/dL Low 3.9-4.9 [facility] Comment on above: Order Comment: Jonas men Type: BLOOD SPECIMEN Ordering Facility: [facility] Address: [address] [place] [address] Performed By: #### 5 8410-2 #### [facility] CLIA [id number] [address] [place] [address] [place] Anion gap [Moles/Vol] 14 mmol/L Normal 8-15 [facility] Comment on above: Order Comment: Awaisi men Type: BLOOD SPECIMEN Ordering Facility: [facility] Address: [address] [place] [address] Performed By: #### 5 8410-2 #### [facility] CLIA [id number] [address] [place] [address] [place] Calcium [Mass/Vol] 9.3 mg/dL Normal 8.5-10.2 [facility] Comment on above: Order Comment: Awaisi men Type: BLOOD SPECIMEN Ordering Facility: [facility] Address: [address] [place] [address] Performed By: #### 5 8410-2 #### [facility] CLIA [id number] [address] [place] [address] [place] Chloride [Moles/Vol] 104 mmol/L Normal 98-107 [facility] Comment on above: Order Comment: Awaisi men Type: BLOOD SPECIMEN Ordering Facility: [facility] Address: [address] [place] [address] Performed By: #### 5 8410-2 #### [facility] CLIA [id number] [address] [place] [address] [place] CO2 [Moles/Vol] 23 mmol/L Normal 22-30 [facility] Comment on above: Order Comment: Speci men Type: BLOOD SPECIMEN Ordering Facility: [facility] Address: [address] [place] [address] Performed By: #### 5 8410-2 #### [facility] CLIA [id number] [address] [place] [address] [place] Creatinine [Mass/Vol] 1.01 mg/dL Normal 0.73-1.22 [facility] Comment on above: Order Comment: Speci men Type: BLOOD SPECIMEN Ordering Facility: [facility] Address: [address] [place] [address] Performed By: #### 5 8410-2 #### [facility] CLIA [id number] [address] [place] Creatinine and Glomerular filtration rate.predicted panel (S/P/Bld) 86 mL/min/1.73m??? Normal >=60 [facility] Comment on above: Order Comment: Speci men Type: BLOOD SPECIMEN Ordering Facility: [facility] Address: [address] [place] [address] Result Comment: Bianca mated Glomerular Filtration Rate [...] #### 5 8410-2 #### [facility] CLIA [id number] [address] [place] [address] [place] Glucose [Mass/Vol] 137 mg/dL High 74-99 [facility] Comment on above: Order Comment: Speci men Type: BLOOD SPECIMEN Ordering Facility: [facility] Address: [address] [place] [address] Result Comment: The [place] [employer] (ADA) provides guidance for cutoff [...] Standards of Medical Care in Diabetes 2016, [place] [employer]. Diabetes Care. 2016.39(Suppl 1). Performed By: #### 5 8410-2 #### [facility] CLIA [id number] [address] [place] [address] [place] Phosphate [Mass/Vol] 3.9 mg/dL Normal 2.7-4.8 [facility] Comment on above: Order Comment: Speci men Type: BLOOD SPECIMEN Ordering Facility: [facility] Address: [address] [place] [address] Performed By: #### 5 8410-2 #### [facility] CLIA [id number] [address] [place] [address] [place] Potassium [Moles/Vol] 3.8 mmol/L Normal 3.7-5.1 [facility] Comment on above: Order Comment: Speci men Type: BLOOD SPECIMEN Ordering Facility: [facility] Address: [address] [place] [address] Performed By: #### 5 8410-2 #### [facility] CLIA [id number] [address] [place] [address] [place] Sodium [Moles/Vol] 141 mmol/L Normal 136-144 [facility] Comment on above: Order Comment: Speci men Type: BLOOD SPECIMEN Ordering Facility: [facility] Address: [address] [place] [address] Performed By: #### 5 8410-2 #### [facility] CLIA [id number] [address] [place] [address] [place] Urea nitrogen [Mass/Vol] 16 mg/dL Normal 9-24 [facility] Comment on above: Order Comment: Speci men Type: BLOOD SPECIMEN [facility]ing [facility] Address: [address] [place] [address] Performed By: #### 5 8410-2 #### [facility] CLIA [id number] [address] [place] [address] [place] Urinalysis complete panel (U )on 09-26-2024 Bacteria LM.HPF (Urine sed) [#/Area] Negative Normal Negative [facility] Comment on above: Order Comment: Speci men Type: URINE SPECIMENOrdering Facility: [facility] Address: [address] [place] [address] Performed By: #### 2 4356-8 ####[facility] [id number] [place] [address] [place] Bilirubin Ql (U) 1+ Abnormal Negative [facility] Comment on above: Order Comment: Speci men Type: URINE SPECIMENOrdering Facility: [facility] Address: [address] [place] [address] Result Comment: Sugg est correlation with clinical findings and serum bilirubin if clinically indicated. Performed By: #### 2 4356-8 ####[facility]IA [id number] [place] [address] [place] Clarity (Unsp spec) Clear Normal Clear [facility] Comment on above: Order Comment: Speci men Type: URINE SPECIMENOrdering Facility: [facility] Address: [address] [place] [address] Performed By: #### 2 4356-8 ####[facility]IA [id number] [place] [address] [place] Color (U) Dark Yellow Abnormal Yellow [facility] Comment on above: Order Comment: Speci men Type: URINE SPECIMENOrdering Facility: [facility] Address: [address] [place] [address] Performed By: #### 2 4356-8 ####[facility]IA [id number] [address] [place] Epithelial cells LM.HPF (Urine sed) [#/Area] None Seen Normal [facility] Comment on above: Order Comment: Speci men Type: URINE SPECIMENOrdering Facility: [facility] Address: [address] [place] [address] Performed By: #### 2 4356-8 ####[facility]IA [id number] [address] [place] Glucose Test strip (U) [Mass/Vol] Trace Abnormal Negative [facility] Comment on above: Order Comment: Speci men Type: URINE SPECIMENOrdering Facility: [facility] Address: [address] [place] [address] Performed By: #### 2 4356-8 ####[facility]IA [id number] [place] [address] [place] Hemoglobin Ql (U) Negative Normal Negative [facility] Comment on above: Order Comment: Speci men Type: URINE SPECIMENOrdering Facility: [facility] Address: [address] [place] [address] Performed By: #### 2 4356-8 ####[facility]IA [id number] [place] [address] [place] Hyaline casts (Urine sed) [#/Area] 4-10 /LPF Abnormal 0 /LPF [facility] Comment on above: Order Comment: Speci men Type: URINE SPECIMENOrdering Facility: [facility] Address: [address] [place] [address] Performed By: #### 2 4356-8 ####[facility]IA [id number] [place] [address] [place] Ketones Ql (U) Trace Abnormal Negative [facility] Comment on above: Order Comment: Speci men Type: URINE SPECIMENOrdering Facility: [facility] Address: [address] [place] [address] Performed By: #### 2 4356-8 ####[facility]CLIA [id number] [address] [place] [address] [place] Leukocyte esterase Test strip Ql (U) Negative Normal Negative [facility] Comment on above: Order Comment: Speci men Type: URINE SPECIMENOrdering Facility: [facility] Address: [address] [place] [address] Performed By: #### 2 4356-8 ####[facility]CLIA [id number] [address], [place] [address] [place] Nitrite Ql (U) Negative Normal Negative [facility] Comment on above: Order Comment: Speci men Type: URINE SPECIMENOrdering Facility: [facility] Address: [address] [place] [address] Performed By: #### 2 4356-8 ####[facility]IA [id number] [address], [place] [address] [place] pH (U) 6.5 [pH] Normal <8.5 [facility] Comment on above: Order Comment: Speci men Type: URINE SPECIMENOrdering Facility: [facility] Address: [address] [place] [address] Performed By: #### 2 4356-8 ####[facility]CLIA [id number] [facility] [address], [facility] [place] Protein (U) [Mass/Vol] 2+ Abnormal Negative [facility] Comment on above: Order Comment: Speci men Type: URINE SPECIMENOrdering Facility: [facility] Address: [address] [place] [address] Performed By: #### 2 4356-8 ####[facility] LABCLIA [id number] [address] RBC LM.HPF (Urine sed) [#/Area] 0-2 /HPF Normal 0-2 /HPF [facility] Comment on above: Order Comment: Speci men Type: URINE SPECIMENOrdering Facility: [facility] Address: [address] [place] [address] Performed By: #### 2 4356-8 ####[facility] LABIA [id number] [place] [address] [place] Specific gravity (U) [Rel density] 1.035 High 1.005-1.030 [facility] Comment on above: Order Comment: Speci men Type: URINE SPECIMENOrdering Facility: [facility] Address: [address] [place] [address] Performed By: #### 2 4356-8 ####[facility]IA [id number] [address] [place] Urobilinogen Ql (U) 1.0 EU/dL Normal 0.2-1.0 EU/dL [facility] Comment on above: Order Comment: Speci men Type: URINE SPECIMENOrdering Facility: [facility] Address: [address] [place] [address] Performed By: #### 2 4356-8 ####[facility] [id number] [address] [place] WBC LM.HPF (Urine sed) [#/Area] 0-5 /HPF Normal 0-5 /HPF [facility] Comment on above: Order Comment: Speci men Type: URINE SPECIMENOrdering Facility: [facility] Address: [address] [place] [address] Performed By: #### 2 4356-8 ####[facility] LABIA [id number] [address] [place] CBC panel Auto (Bld)on 09-25 Erythrocyte distribution width (RBC) [Ratio] 12.8 % Normal 11.5-15.0 [facility] Comment on above: Order Comment: Speci men Type: BLOOD SPECIMENOrdering Facility: [facility] Address: [address] [place] [address] Performed By: #### 5 8410-2 ####[facility] LABIA [id number] [place] [address] [place] Hematocrit (Bld) [Volume fraction] 41.0 % Normal 39.0-51.0 [facility] Comment on above: Order Comment: Speci men Type: BLOOD SPECIMENOrdering Facility: [facility] Address: [address] [place] [address] Performed By: #### 5 8410-2 ####[facility] [id number] [place] [address] [place] Hemoglobin (Bld) [Mass/Vol] 14.7 g/dL Normal 13.0-17.0 [facility] Comment on above: Order Comment: Speci men Type: BLOOD SPECIMENOrdering Facility: [facility] Address: [address] [place] [address] Performed By: #### 5 8410-2 ####[facility] [id number] [place] [address] [place] MCH (RBC) [Entitic mass] 30.3 pg Normal 26.0-34.0 [facility] Comment on above: Order Comment: Speci men Type: BLOOD SPECIMENOrdering Facility: [facility] Address: [address] [place] [address] Performed By: #### 5 8410-2 ####[facility] LABIA [id number] [place] [address] [place] MCHC (RBC) [Mass/Vol] 35.9 g/dL Normal 30.5-36.0 [facility] Comment on above: Order Comment: Speci men Type: BLOOD SPECIMENOrdering Facility: [facility] Address: [address] [place] [address] Performed By: #### 5 8410-2 ####[facility] LABCLIA [id number] [address], [place] [address] [place] MCV (RBC) [Entitic vol] 84.5 fL Normal 80.0-100.0 [facility] Comment on above: Order Comment: Speci men Type: BLOOD SPECIMENOrdering Facility: [facility] Address: [address] [place] [address] Performed By: #### 5 8410-2 ####[facility] LABIA [id number] [address], [place] [address] [place] Nucleated RBC (Bld) [#/Vol] 10*3/uL Normal <0.01 [facility] Comment on above: Order Comment: Speci men Type: BLOOD SPECIMENOrdering Facility: [facility] Address: [address] [place] [address] Performed By: #### 5 8410-2 ####[facility] LABIA [id number] [address], [place] [address] [place] Platelet mean volume (Bld) [Entitic vol] 9.7 fL Normal 9.0-12.7 [facility] Comment on above: Order Comment: Speci men Type: BLOOD SPECIMENOrdering Facility: [facility] Address: [address] [place] [address] Performed By: #### 5 8410-2 ####[facility] LABIA [id number] [place] [address] [place] Platelets (Bld) [#/Vol] 208 10*3/uL Normal 150-400 [facility] Comment on above: Order Comment: Speci men Type: BLOOD SPECIMENOrdering Facility: [facility] Address: [address] [place] [address] Performed By: #### 5 8410-2 ####[facility] LABCLIA [id number] [place] [address] [place] RBC (Bld) [#/Vol] 4.85 10*6/uL Normal 4.20-6.00 [facility] Comment on above: Order Comment: Speci men Type: BLOOD SPECIMENOrdering Facility: [facility] Address: [address] [place] [address] Performed By: #### 5 8410-2 ####[facility] LABCLIA [id number] [address] [place] WBC (Bld) [#/Vol] 6.63 10*3/uL Normal 3.70-11.00 [facility] Comment on above: Order Comment: Speci men Type: BLOOD SPECIMENOrdering Facility: [facility] Address: [address] [place] [address] Performed By: #### 5 8410-2 ####[facility] LABCLIA [id number] [address] [place] CNDSon 09-25-2024 CNDS HNO ID: [id number] Author: FABIANA DUNAWAY MD, PhD Service: Neurology [...] 6 Final/Discharge NIHSS Score: 19 Final/Discharge Modified [place] Score: 4 - Moderately severe disability - [...] encephalomalacia CTA head and neck 09/22/2024: Left OFFICE SERVICES ASSISTANT P1 occlusion with distal recanalization MRI brain [...] initial HANDP written by the resident [facility] the patient was admitted: Mr. Evangelista Borrego is a 59 yo male with a PMH significant for T2DM, LYLE, HLD, seiz (more content not included)... Normal [facility] CONSULT PROGon 09-25-2024 CONSULT PROG HNO ID: [id number] Author: ROSALIE LANDERS APRN.TUCKER Service: Endocrinology Author [...] he takes he was doing his own meds." Information obtained from EMR HPI: Mr. Evangelista [...] (Oral) Resp 19 Ht 170.2 cm (5' 7") Wt 123.2 kg (271 lb 9.7 oz) [...] 3AM 09/22/2024 186 09/23/2024 262A2 302A4 255A6 Wtljyn51 172A2 161A2 09/24/2024 170A4+2 246A4+4 Hibsux14 196A4+2 227A4 185A2 09/25/2024 163A2+5 213A5+4 Snfsjz05 160A5+2 Diabetes Management Prior to the Consultation/HPI: Scale #1 AC only Other Pertinent Medications: Continuous Infusion: none Steroids: none Diet: Soft bite sized(L6) mildly thick (L2) nectar Tube Feeding: No Supplements: none Impression/Recommend ations Patient with poorly controlled Diabetes Mellitus Type 2 hyperglycemia s/p stroke whom we have been consulted for glycemic control. Blood Glucose and Labs Reviewed, [id number]. Po intake fair BG high. Will increase [...] prescribed by primary team Follow up with rehab care assistant and community relations liaison as recommended. Patient will [facility] ([facility]) or with his home road design engineer/PCP in 1-2 weeks after discharge. SIGNATURE: Rosalie Landers APRN.CNP PATIENT NAME: Evangelista Borrego JR DATE: September 25, 2024 TIME: 7:04 AM PAGER: Inpatient Endo TOPOGRAPHICAL ENGINEER fr (more content not included)... Normal [facility] Phenytoin Free SerPl-mCncon 09-25-2024 Phenytoin Free [Mass/Vol] <0.4 Low 1.0-2.0 [facility] Comment on above: Order Comment: Speci men Type: BLOOD SPECIMEN Ordering Facility: [facility] Address: [address] [place] [address] Result Comment: Refe rence ranges and high/low indicator flags are provided as general guidelines only. The treating physician must determine appropriate target levels/dosing based on the specific clinical situation. Result rechecked. Performed By: #### 5 8410-2 #### [facility] CLIA [id number] [address] [place] [address] [place] Renal function 2000 panelon 09-25-2024 Albumin [Mass/Vol] 3.9 g/dL Normal 3.9-4.9 [facility] Comment on above: Order Comment: Speci men Type: BLOOD SPECIMENOrdering Facility: [facility] Address: [address] [place] [address] Performed By: #### 2 4362-6 ####[facility] LABCLIA [id number] [facility] [place] [address] [place] Anion gap [Moles/Vol] 12 mmol/L Normal 8-15 [facility] Comment on above: Order Comment: Speci men Type: BLOOD SPECIMENOrdering Facility: [facility] Address: [address] [place] [address] Performed By: #### 2 4362-6 ####[facility] LABCLIA [id number] [place] [address] [place] Calcium [Mass/Vol] 9.5 mg/dL Normal 8.5-10.2 [facility] Comment on above: Order Comment: Speci men Type: BLOOD SPECIMENOrdering Facility: [facility] Address: [address] [place] [address] Performed By: #### 2 4362-6 ####[facility] LABCLIA [id number] [facility] [place] [id number] [place] Chloride [Moles/Vol] 102 mmol/L Normal 98-107 [facility] Comment on above: Order Comment: Speci men Type: BLOOD SPECIMENOrdering Facility: [facility] Address: [address] [place] [address] Performed By: #### 2 4362-6 ####[facility] LABCLIA [id number] [facility] [address] [address] [place] CO2 [Moles/Vol] 25 mmol/L Normal 22-30 [facility] Comment on above: Order Comment: Speci men Type: BLOOD SPECIMENOrdering Facility: [facility] Address: [address] [place] [address] Performed By: #### 2 4362-6 ####[facility] [id number] [place] [address] [place] Creatinine [Mass/Vol] 0.92 mg/dL Normal 0.73-1.22 [facility] Comment on above: Order Comment: Speci men Type: BLOOD SPECIMENOrdering Facility: [facility] Address: [address] [place] [address] Performed By: #### 2 4362-6 ####[facility] [id number] [address] [place] Creatinine and Glomerular filtration rate.predicted panel (S/P/Bld) 96 mL/min/1.73m??? Normal >=60 [facility] Comment on above: Order Comment: Speci men Type: BLOOD SPECIMENOrdering Facility: [facility] Address: [address] [place] [address] Result Comment: Bianca mated Glomerular Filtration Rate [...] actual GFR. Performed By: #### 2 4362-6 ####[facility] LABIA [id number] [place] [id number] [place] Glucose [Mass/Vol] 168 mg/dL High 74-99 [facility] Comment on above: Order Comment: Speci men Type: BLOOD SPECIMENOrdering Facility: [facility] Address: [address] [place] [address] Result Comment: The [place] Diabetes Association (ADA) provides guidance for cutoff [...] Standards of Medical Care in Diabetes 2016, [place] [employer]. Diabetes Care. 2016.39(Suppl 1). Performed By: #### 2 4362-6 ####[facility] LABCLIA [id number] [address] [address] [place] Phosphate [Mass/Vol] 4.0 mg/dL Normal 2.7-4.8 [facility] Comment on above: Order Comment: Speci men Type: BLOOD SPECIMENOrdering Facility: [facility] Address: [address] [place] [address] Performed By: #### 2 4362-6 ####[facility] LABIA [id number] [address] [address] [place] Potassium [Moles/Vol] 3.7 mmol/L Normal 3.7-5.1 [facility] Comment on above: Order Comment: Speci men Type: BLOOD SPECIMENOrdering Facility: [facility] Address: [address] [place] [address] Performed By: #### 2 4362-6 ####[facility] LABIA [id number] [address] [address] [place] Sodium [Moles/Vol] 139 mmol/L Normal 136-144 [facility] Comment on above: Order Comment: Speci men Type: BLOOD SPECIMENOrdering Facility: [facility] Address: [address] [place] [address] Performed By: #### 2 4362-6 ####[facility] LABIA [id number] [address] [address] [place] Urea nitrogen [Mass/Vol] 14 mg/dL Normal 9-24 [facility] Comment on above: Order Comment: Speci men Type: BLOOD SPECIMENOrdering Facility: [facility] Address: [address] [place] [address] Performed By: #### 2 4362-6 ####[facility] LABCLIA [id number] [facility]IC[facility] [address] OF [facility] THERAPY NTon 09-25-2024 THERAPY NT HNO ID: [id number] Author: JOSE ROSS, [facility]-SUPERVISOR DIALS Service: Speech/Swallow Author Type: Speech Language Pathologist Type: Therapy (PT/OT/Speech/Resp) Filed: 09/25/2024 17:06 Note Text: Speech Pathology A f/u dysphagia and speech-language visit was attempted this p.m. The pt was sleeping soundly at this time. Will defer visit until tomorrow to optimize pt ability to fully participate. SUPERVISOR DIALS discussed this with the pt's RN. Jose Ross M.A., [facility]/SUPERVISOR DIALS Speech Language Pathologist [phone] Normal [facility] THERAPY NT HNO ID: [id number] Author: ALEXIA VALENTE, PT Service: Physical Therapy Author Type: Physical Therapist Type: Therapy (PT/OT/Speech/Resp) Filed: 09/25/2024 15:13 Note Text: Physical Therapy Treatment Summary SERVICE DATE: 09/25/2024 SERVICE TIME: 1212 to 1315 ROOM: [place] [address] PT 6 Clicks Score: 11 DISCHARGE RECOMMENDATIONS [...] lives with 2 sons Entry To Home: ("Some here and there") PRIOR FUNCTIONAL LEVEL Unable to Report Pt poor historian 2/2 expressive deficits. Able to report no AD use and that he lives with his 2 sons. Reports he has not driven in a while. Denies falls. SUBJECTIVE Agreeable to PT THERAPY DIAGNOSIS Reduced mobility-other, Muscle Weakness (generalized), Abnormalities of gait and mobility-other TREATMENT INTERVENTIONS Therapeutic Activity (66059), Neuromuscular Reeducation (20166), Therapeutic Exercise (87059) Timed Code Treatment (minutes): 63 Skilled Treatment [...] September 25, 2024 TIME: 3:13 PM Normal [facility] THERAPY NT HNO ID: [id number] Author: NYLA PELAYO OT/Odalys Service: Occupational Therapy Author Type: Occupational Therapist Type: Therapy (PT/OT/Speech/Resp) Filed: 09/25/2024 15:40 Note Text: Occupational Therapy Treatment Summary SERVICE DATE: 09/25/2024 SERVICE TIME: 0846 to 0946 ROOM: [place] [address] OT 6 Clicks Score: 14 DISCHARGE RECOMMENDATIONS [...] lives with 2 sons Entry To Home: ("Some here and there") PRIOR FUNCTIONAL LEVEL Unable to Report Pt poor historian 08/25 expressive deficits. Able to report no AD [...] Lack of coordination-other TREATMENT INTERVENTIONS Cognitive Training (66186 and 65040), Neuromuscular Reeducation (07691), Self Fdc Management (25557) Timed Code Treatment (minutes): 60 Skilled Treatment Time (minutes): 60 TRAINING AND EDUCATION PROVIDED Activity Adaptation/Compensat ory Strategies, Bed Mobility, Benefits of In-Hospital Mobility, Cognitive Prosthetics, Command Following, Delirium Reduction Techniques, Expected Functional Level, Feeding Tasks, Grooming Tasks, Memory/Attention, Orientation, Patient Exercise/Therapy Program Support Needs, Positioning, Role of Occupational Therapy, Sitting Balance to Improve [place] with ADLs/Self-Care, Standing Balance to Improve [place] with ADLs/Self-Care, Transfer - Sit to Stand, Transfer - Bed to Chair, Visual Scanning/Attention Activities THERAPEUTIC SKILLS USED Activity Dosing, Assessment of Tolerance Including Vitals Response to Activity, Bed in Chair Position, Cues for Sequencing/Proper Technique for Activity, Cuing Tactile, Cuing Verbal, Cuing Visual, Contra-lateral Facilitation, Management of Critical Lines, Tubes and/or Drains, Physical Dwayne (more content not included)... Normal [facility] CBC panel Auto (Bld)on 09-24 Erythrocyte distribution width (RBC) [Ratio] 12.8 % Normal 11.5-15.0 [facility] Comment on above: Order Comment: Speci men Type: BLOOD SPECIMEN [facility] Address: [address] [place] [address] Performed By: #### 5 8410-2 #### [facility] CLIA [id number] [address] [place] [address] [place] Hematocrit (Bld) [Volume fraction] 41.9 % Normal 39.0-51.0 [facility] Comment on above: Order Comment: Speci men Type: BLOOD SPECIMEN [facility] Address: [address] [place] [address] Performed By: #### 5 8410-2 #### [facility] CLIA [id number] [address] [place] [address] [place] Hemoglobin (Bld) [Mass/Vol] 15.1 g/dL Normal 13.0-17.0 [facility] Comment on above: Order Comment: Speci men Type: BLOOD SPECIMEN [facility] Address: [address] [place] [address] Performed By: #### 5 8410-2 #### [facility] CLIA [id number] [address] [place] [address] [place] MCH (RBC) [Entitic mass] 30.8 pg Normal 26.0-34.0 [facility] Comment on above: Order Comment: Speci men Type: BLOOD SPECIMEN [facility] Address: [address] [place] [address] Performed By: #### 5 8410-2 #### [facility] CLIA [id number] [address] [place] [address] [place] MCHC (RBC) [Mass/Vol] 36.0 g/dL Normal 30.5-36.0 [facility] Comment on above: Order Comment: Speci men Type: BLOOD SPECIMEN [facility] Address: [address] [place] [address] Performed By: #### 5 8410-2 #### [facility] CLIA [id number] [address] [place] [address] [place] MCV (RBC) [Entitic vol] 85.5 fL Normal 80.0-100.0 [facility] Comment on above: Order Comment: Speci men Type: BLOOD SPECIMEN [facility] Address: [address] [place] [address] Performed By: #### 5 8410-2 #### [facility] CLIA [id number] [address] [place] [address] [place] Nucleated RBC (Bld) [#/Vol] 10*3/uL Normal <0.01 [facility] Comment on above: Order Comment: Speci men Type: BLOOD SPECIMEN [facility] Address: [address] [place] [address] Performed By: #### 5 8410-2 #### [facility] CLIA [id number] [address] [place] [address] [place] Platelet mean volume (Bld) [Entitic vol] 10.1 fL Normal 9.0-12.7 [facility] Comment on above: Order Comment: Speci men Type: BLOOD SPECIMEN [facility] Address: [address] [place] [address] Performed By: #### 5 8410-2 #### [facility] CLIA [id number] [address] [place] [address] [place] Platelets (Bld) [#/Vol] 233 10*3/uL Normal 150-400 [facility] Comment on above: Order Comment: Speci men Type: BLOOD SPECIMEN [facility] Address: [address] [place] [address] Performed By: #### 5 8410-2 #### [facility] CLIA [id number] [address] [place] [address] [place] RBC (Bld) [#/Vol] 4.90 10*6/uL Normal 4.20-6.00 [facility] Comment on above: Order Comment: Speci men Type: BLOOD SPECIMEN [facility] Address: [address] [place] [address] Performed By: #### 5 8410-2 #### [facility] CLIA [id number] [address] [place] [address] [place] WBC (Bld) [#/Vol] 6.31 10*3/uL Normal 3.70-11.00 [facility] Comment on above: Order Comment: Speci men Type: BLOOD SPECIMEN [facility] Address: [address] [place] [address] Performed By: #### 5 8410-2 #### [facility] CLIA [id number] [address] [place] [address] [place] CONSULTon 09-24-2024 CONSULT HNO ID: [id number] Author: NUSRAT GOTTLIEB PA-C Service: Physical Medicine AND Rehabilitation Author Type: Physician Button Station Worker Type: Consults Filed: 09/24/2024 10:40 Note Text: HOSPITAL INITIAL CONSULT: PMANDR SERVICE DATE: 09/24/2024 SERVICE TIME: 9:49 AM REASON FOR CONSULTATION: assessment of rehab service needs and PMANDR Consult Order in patient's chart: Yes, order in chart under separate note Subjective PATIENT'S HOME ADDRESS: [id number] [facility] [address] HISTORY: Evangelista Borrego JR is a 59 year old male whose current [facility] admission dates to 09/22/2024. History notes that he was admitted on that date from outside hospital. Mr. Vanessa HIDALGO is being seen at the request of Dr. Dunaway, the acute hospital physician of record. He carries the rehabilitation diagnosis of stroke. HPI/CHIEF COMPLAINT: Current location: [facility] 001/H0- Parts of this note may have been copied (in italics) and I have reviewed and edited/updated from a combination of HANDP, progress notes from primary service and/or consulting services notes via chart review: Mr. Evangelista Borrego is a 59 yo male with a PMH significant for T2DM, LYLE, HLD, seizures on phenytoin who presented with RHP and dysarthria to [place] ED on 09/22. LKW 9PM 09/21. He was found to have a left P1 occlusion of unknown chronicity and encephalomalacia in left paramedian occipital lobe on imaging. Transferred to [facility] SDU for further workup and observation. Upon [...] PROCEDURE ANKLE AND FOOT COLONOSCOPY Dr. Omer [facility] NEUROPLASTY AND/TRANSPOS MEDIAN NRV CARPAL TUNNE [...] Skin: Ra (more content not included)... Normal [facility] CONSULT PROGon 09-24-2024 CONSULT PROG HNO ID: [id number] Author: ROSALIE LANDERS APRN.DIESEL POWER SHOVEL OPERATOR Service: Endocrinology Author Type: Nurse Practitioner Type: [...] he takes he was doing his own meds." Information obtained from EMR HPI: Mr. Evangelista [...] (Oral) Resp 26 Ht 170.2 cm (5' 7") Wt 128.5 kg (283 lb 4.7 oz) [...] 3AM 09/22/2024 186 09/23/2024 262A2 302A4 255A6 [id number] 172A2 161A2 09/24/2024 170A4+2 246A4+4 Ehtzzs88 196A4+2 Diabetes Management Prior to the Consultation/HPI: [...] prescribed by primary team Follow up with rehab care assistant and community relations liaison as recommended. [facility] ([facility] or with his home road design engineer/PCP in 1-2 weeks after discharge. SIGNATURE: Rosalie Landers APRN.TUCKER PATIENT NAME: Evangelista Borrego JR DATE: September 24, 2024 TIME: 6:38 AM PAGER: (more content not included)... Normal [facility] Renal function 2000 panelon 09-24-2024 Albumin [Mass/Vol] 4.0 g/dL Normal 3.9-4.9 [facility] Comment on above: Order Comment: Speci men Type: BLOOD SPECIMEN [facility] Address: [address], [place] [address] Performed By: #### 3 969-3 #### [facility] CLIA [id number] [address] [place] [address] [place] Anion gap [Moles/Vol] 13 mmol/L Normal 8-15 [facility] Comment on above: Order Comment: Speci men Type: BLOOD SPECIMEN [facility] Address: [address] [place] [address] Performed By: #### 3 969-3 #### [facility] CLIA [id number] [address] [place] [address] [place] Calcium [Mass/Vol] 9.5 mg/dL Normal 8.5-10.2 [facility] Comment on above: Order Comment: Speci men Type: BLOOD SPECIMEN [facility] Address: [address] [place] [address] Performed By: #### 3 969-3 #### [facility] CLIA [id number] [address] [place] [address] [place] Chloride [Moles/Vol] 100 mmol/L Normal 98-107 [facility] Comment on above: Order Comment: Speci men Type: BLOOD SPECIMEN [facility] Address: [address] [place] [address] Performed By: #### 3 969-3 #### [facility] CLIA [id number] [address] [place] [address] [place] CO2 [Moles/Vol] 24 mmol/L Normal 22-30 [facility] Comment on above: Order Comment: Speci men Type: BLOOD SPECIMEN [facility] Address: [address] [place] [address] Performed By: #### 3 969-3 #### [facility] CLIA [id number] [address] [place], [place] [address] [place] Creatinine [Mass/Vol] 0.77 mg/dL Normal 0.73-1.22 [facility] Comment on above: Order Comment: Jonas florez Type: BLOOD SPECIMEN [facility] Address: [address] [place] [address] Performed By: #### 3 969-3 #### [facility] CLIA [id number] [address] [place] [address] [place] Creatinine and Glomerular filtration rate.predicted panel (S/P/Bld) 104 mL/min/1.73m??? Normal >=60 [facility] Comment on above: Order Comment: Jonas florez Type: BLOOD SPECIMEN [facility] Address: [address] [place] [address] Result Comment: Bianca mated Glomerular Filtration Rate [...] GFR. Performed By: #### 3 969-3 #### [facility] CLIA [id number] [address] [place] [address] [place] Glucose [Mass/Vol] 158 mg/dL High 74-99 [facility] Comment on above: Order Comment: Jonas florez Type: BLOOD SPECIMEN [facility] Address: [address] [place] [address] Result Comment: The [place] [employer] (ADA) provides guidance for cutoff [...] Standards of Medical Care in Diabetes 2016, [place] [employer]. Diabetes Care. 2016.39(Suppl 1). Performed By: #### 3 969-3 #### [facility] CLIA [id number] [address] [place] [address] [place] Phosphate [Mass/Vol] 3.7 mg/dL Normal 2.7-4.8 [facility] Comment on above: Order Comment: Speci men Type: BLOOD SPECIMEN [facility] Address: [address] [place] [address] Performed By: #### 3 969-3 #### [facility] CLIA [id number] [address] [place] [address] [place] Potassium [Moles/Vol] 3.9 mmol/L Normal 3.7-5.1 [facility] Comment on above: Order Comment: Speci men Type: BLOOD SPECIMEN [facility] Address: [address] [place] [address] Performed By: #### 3 969-3 #### [facility] CLIA [id number] [address] [place] [address] [place] Sodium [Moles/Vol] 137 mmol/L Normal 136-144 [facility] Comment on above: Order Comment: Speci men Type: BLOOD SPECIMEN [facility] Address: [address] [place] [address] Performed By: #### 3 969-3 #### [facility] CLIA [id number] [address] [place], [place] [address] [place] Urea nitrogen [Mass/Vol] 11 mg/dL Normal 9-24 [facility] Comment on above: Order Comment: Speci men Type: BLOOD SPECIMEN [facility] Address: [address] [place], [place] [address] Performed By: #### 3 969-3 #### [facility] CLIA [id number] [address] OF [facility] THERAPY NTon 09-24-2024 THERAPY NT HNO ID: [id number] Author: NYLA PELAYO OT/Odalys Service: Occupational Therapy Author Type: Occupational Therapist Type: Therapy (PT/OT/Speech/Resp) Filed: 09/24/2024 14:24 Note Text: OCCUPATIONAL THERAPY MISSED VISIT SERVICE DATE: 09/24/2024 SERVICE TIME: 1117 ROOM: [place] [address] Patient not seen due to Patient Not Available. OT will follow up as able. SIGNATURE: Nyla Pelayo OT/Odalys PATIENT NAME: Evangelista Borrego JR DATE: September 24, 2024 TIME: 2:23 PM Normal [facility] THERAPY NT HNO ID: [id number] Author: ALEXIA VALENTE, PT Service: Physical Therapy Author Type: Physical Therapist Type: Therapy (PT/OT/Speech/Resp) Filed: 09/24/2024 12:16 Note Text: Physical Therapy Treatment Summary SERVICE DATE: 09/24/2024 SERVICE TIME: 1106 to 1155 (-9 min non-billable time) ROOM: [place] [address] PT 6 Clicks Score: 10 DISCHARGE RECOMMENDATIONS [...] lives with 2 sons Entry To Home: ("Some here and there") PRIOR FUNCTIONAL LEVEL Unable to Report Pt poor historian 2/2 expressive deficits. Able to report no AD use and that he lives with his 2 sons. Reports he has not driven in a while. Denies falls. SUBJECTIVE Agreeable to PT THERAPY DIAGNOSIS Reduced mobility-other, Muscle Weakness (generalized), Unsteadiness on feet, Abnormalities of gait and mobility-other TREATMENT INTERVENTIONS Therapeutic Activity (43546), Therapeutic Exercise (66783) Timed Code Treatment (minutes): 40 Skilled Treatment [...] Alexia Valente PT PATIENT NAME: Evangelista Borrego DATE: September 24, 2024 TIME: 12:15 PM Normal [facility] 10OH-Carbazepine SerPl-mCnco n 09-23-2024 10-Hydroxycarbazepine [Mass/Vol] <0.5 Low 3.0-35.0 [facility] Comment on above: Order Comment: Speci men Type: BLOOD SPECIMEN Ordering Facility: [facility] Address: [address] [place] [address] Result Comment: This test was developed, and its performance characteristics determined by the [facility] Department of Pathology and Laboratory Medicine. It has not been cleared or approved by the FDA. The [facility] Department of Pathology and Laboratory Medicine is regulated under CLIA as qualified to perform high-complexity testing. This test is used for clinical purposes. It should not be regarded as investigational or for research. Performed By: #### 3 1019-3 #### [facility] CLIA [id number] [address] [place] [address] [place] ALLIED HEALTHon 09-23-2024 ALLIED HEALTH HNO ID: [id number] Author: NOA MEDEIROS RT(Kelly) Service: ? Author [...] PATIENT PRESENTS WITH AN IMPLANTABLE OR ATTACHED BREAKFAST COOK: No RADIOLOGY DEPARTMENT: MR; Exam(s) Completed: Head: Routine Brain PERIPHERAL IV DATA: Inpatient: see LDA documentation SIGNED BY: RT Shoshana(Kelly) September 23, 2024 10:22 PM Normal [facility] CBC panel Auto (Bld)on 09-23 Erythrocyte distribution width (RBC) [Ratio] 12.7 % Normal 11.5-15.0 [facility] Comment on above: Order Comment: Speci men Type: BLOOD SPECIMENOrdering Facility: [facility] Address: [address] [place] [address] Performed By: #### 5 8410-2 ####[facility]IA [id number] [place] [address] [place] Hematocrit (Bld) [Volume fraction] 40.7 % Normal 39.0-51.0 [facility] Comment on above: Order Comment: Speci men Type: BLOOD SPECIMENOrdering Facility: [facility] Address: [address] [place] [address] Performed By: #### 5 8410-2 ####[facility] LABIA [id number] [place] [address] [place] Hemoglobin (Bld) [Mass/Vol] 14.5 g/dL Normal 13.0-17.0 [facility] Comment on above: Order Comment: Speci men Type: BLOOD SPECIMENOrdering Facility: [facility] Address: [address] [place] [address] Performed By: #### 5 8410-2 ####[facility]IA [id number] [place] [address] [place] MCH (RBC) [Entitic mass] 30.0 pg Normal 26.0-34.0 [facility] Comment on above: Order Comment: Speci men Type: BLOOD SPECIMENOrdering Facility: [facility] Address: [address] [place] [address] Performed By: #### 5 8410-2 ####[facility]IA [id number] [place] [address] [place] MCHC (RBC) [Mass/Vol] 35.6 g/dL Normal 30.5-36.0 [facility] Comment on above: Order Comment: Speci men Type: BLOOD SPECIMENOrdering Facility: [facility] Address: [address] [place] [address] Performed By: #### 5 8410-2 ####[facility]CLIA [id number] [place] [address] [place] MCV (RBC) [Entitic vol] 84.3 fL Normal 80.0-100.0 [facility] Comment on above: Order Comment: Speci men Type: BLOOD SPECIMENOrdering Facility: [facility] Address: [address] [place] [address] Performed By: #### 5 8410-2 ####[facility] LABIA [id number] [place] [address] [place] Nucleated RBC (Bld) [#/Vol] 10*3/uL Normal <0.01 [facility] Comment on above: Order Comment: Speci men Type: BLOOD SPECIMENOrdering Facility: [facility] Address: [address] [place] [address] Performed By: #### 5 8410-2 ####[facility] LABIA [id number] [place] [address] [place] Platelet mean volume (Bld) [Entitic vol] 10.0 fL Normal 9.0-12.7 [facility] Comment on above: Order Comment: Speci men Type: BLOOD SPECIMENOrdering Facility: [facility] Address: [address] [place] [address] Performed By: #### 5 8410-2 ####[facility]CLIA [id number] [place] [address] [place] Platelets (Bld) [#/Vol] 230 10*3/uL Normal 150-400 [facility] Comment on above: Order Comment: Speci men Type: BLOOD SPECIMENOrdering Facility: [facility] Address: [address] [place] [address] Performed By: #### 5 8410-2 ####[facility]CLIA [id number] [place] [address] [place] RBC (Bld) [#/Vol] 4.83 10*6/uL Normal 4.20-6.00 [facility] Comment on above: Order Comment: Speci men Type: BLOOD SPECIMENOrdering Facility: [facility] Address: [address] [place] [address] Performed By: #### 5 8410-2 ####[facility]IA [id number] [place] [address] [place] WBC (Bld) [#/Vol] 7.10 10*3/uL Normal 3.70-11.00 [facility] Comment on above: Order Comment: Speci men Type: BLOOD SPECIMENOrdering Facility: [facility] Address: [address] [place] [address] Performed By: #### 5 8410-2 ####[facility] [id number] [place] [id number] [place] CONSULTon 09-23-2024 CONSULT HNO ID: [id number] Author: SHERRIE PANDA APRN.CNP Service: Physical Medicine AND Rehabilitation Author Type: Nurse Practitioner Type: Consults Filed: 09/23/2024 16:54 Note Text: PMANDR consult received today. Chart reviewed. Evaluation with PMANDR to follow Monday. Thank you for the consult. Please call with any questions. Current location: [place] [address]- Sherrie Panda APRN.DIESEL POWER SHOVEL OPERATOR Physical Medicine and Rehabilitation pager [phone] Normal [facility] CONSULT HNO ID: [id number] Author: ROSALIE LANDERS APRN.CNP Service: Endocrinology Author Type: Nurse Practitioner Type: [...] he takes he was doing his own meds." Information obtained from EMR HPI: Mr. Evangelista [...] ARTHROSCOPIC PROCEDURE ANKLE [facility] FO[facility]/TRANSPOS MEDIAN NRV CARPAL TUNNE [...] (Oral) Resp 21 Ht 170.2 cm (5' 7") Wt 129.2 kg (284 lb 13.4 oz) SpO2 95% BMI 44.61 kg/m? Body mass index is 44.61 kg/m?. Appearance: obese, alert, slurred speech Eyes: conjunctiva and sclera normal Neck: Supple, Heart: RRR Breathing unlabored on RA Abdomen soft, non-tender Extremities: No deformities, edema, Neuro: Awake, alert and No involuntary motions/EEG monitoring Feet: No ulcers, callus (more content not included)... Normal [facility] Cholesterol in LDL Direct as say [Mass/Vol]on 09-23-2024 Cholesterol in LDL [Mass/Vol] 76 mg/dL Normal <100 [facility] Comment on above: Order Comment: Speci men Type: BLOOD SPECIMEN Ordering Facility: [facility] Address: [address] [place] [address] Result Comment: <100 mg/dL, Optimal 100-129 mg/dL, Near optimal/above optimal 130-159 mg/dL, Borderline high 160-189 mg/dL, High >189 mg/dL, Very high Secondary prevention optimal LDL Cholesterol levels are recommended to be < 70 mg/dL Performed By: #### 5 8410-2 #### [facility] CLIA [id number] [address] [place] ECG COMPLETEon 09-23-2024 ECG COMPLETE Ventricular Rate : 56 BPM Atrial Rate : 56 BPM P-R Interval : 196 ms QRS Duration : 112 ms Q-T Interval : 444 ms QTC Calculation(Bazett) : 428 ms Calculated P Ward : 28 degrees Calculated R Ward : -44 degrees Calculated T Ward : -18 degrees SINUS BRADYCARDIA LEFT AXIS DEVIATION MINIMAL VOLTAGE CRITERIA FOR LVH, MAY BE NORMAL VARIANT ( [employer] product ) INFERIOR MYOCARDIAL INFARCTION , AGE UNDETERMINED ABNORMAL ECG Confirmed by LAMONT LAGOS MD ([id number]) on 10/09/2024 7:33:53 AM NAME : EVANGELISTA BORREGO JR PID : [id number] : 1965 Gender : Male Race : ORD : [id number] Procedure Date : Sep 23 2024 00:24:32 [...] CASSIE SMITH Acquired by : CASSY GRIGSBY [facility] ECHOon 09-23-2024 Echocardiography Echocardiography Report: Transthoracic Echo [facility] Bedside Date of service: 09/23/2024 1:43:40 PM INSTRUCTOR Ordering physician: ANDREW GALARZA Indication: Stroke Technologist: Nayla Dillon Interpreting physician: [...] * * Final * * * [employer] [facility] Image : [id number]. [id number] Normal [facility] MRI BRAIN WO/W IVCONon 09-23 MRI BRAIN WO/W IVCON * * *Final Report* * * DATE OF EXAM: Sep 23 2024 10:45PM [facility] - MRI BRAIN WO/W IVCON / [...] susceptibility compatible with nonhemorrhagic acute infarct in OFFICE SERVICES ASSISTANT perforating vessel distribution (correlate with history and CTA results). 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 Additional allowing for difference in modality stable senescent volume loss and microvascular ischemia is noted without additional acute intracranial abnormality. On contrast no abnormal enhancement in brain or meninges. 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 Transport Truck Driver: PSCB Transcribe Date/Time: Sep 23 2024 10:46P Dictated by : ROHIT OROURKE MD This examination was interpreted and the report reviewed and electronically signed by: ROHIT OROURKE MD on Sep 23 2024 10:49PM EST [id number] Normal [facility] NURSING PROGon 09-23-2024 NURSING PROG HNO ID: [id number] Author: SHIREEN VAUGHAN RN Service: Nursing Author [...] September 23, 2024 TIME: 10:06 PM Normal [facility] NURSING PROG HNO ID: [id number] Author: SHWETA DUNN RN Service: Nursing Author [...] before. BP retaken, VSS. BEM button pushed. [phone] paged, Stephen Perry called RNs Katie and [...] paged to remove leads, MRI notified. Normal [facility] Phenytoin Free SerPl-mCncon 09-23-2024 Phenytoin Free [Mass/Vol] <0.4 Low 1.0-2.0 [facility] Comment on above: Order Comment: Speci vikki Type: BLOOD SPECIMEN Ordering Facility: [facility] Address: [address] [place] [address] Result Comment: Refe rence ranges and high/low indicator flags are provided as general guidelines only. The treating physician must determine appropriate target levels/dosing based on the specific clinical situation. Result rechecked. Performed By: #### 3 969-3 #### [facility] CLIA [id number] [address] [place] [address] [place] Renal function 2000 panelon 09-23-2024 Albumin [Mass/Vol] 4.0 g/dL Normal 3.9-4.9 [facility] Comment on above: Order Comment: Speci men Type: BLOOD SPECIMEN Ordering Facility: [facility] Address: [address] [place] [address] Performed By: #### 5 8410-2 #### [facility] CLIA [id number] 1000 [place] [address] [place] Anion gap [Moles/Vol] 14 mmol/L Normal 8-15 [facility] Comment on above: Order Comment: Speci men Type: BLOOD SPECIMEN Ordering Facility: [facility] Address: [address] [place] [address] Performed By: #### 5 8410-2 #### [facility] CLIA [id number] [address] [place] [address] [place] Calcium [Mass/Vol] 9.1 mg/dL Normal 8.5-10.2 [facility] Comment on above: Order Comment: Speci men Type: BLOOD SPECIMEN Ordering Facility: [facility] Address: [address] [place] [address] Performed By: #### 5 8410-2 #### [facility] CLIA [id number] [address] [place] [address] [place] Chloride [Moles/Vol] 102 mmol/L Normal 98-107 [facility] Comment on above: Order Comment: Speci men Type: BLOOD SPECIMEN Ordering Facility: [facility] Address: [address] [place] [address] Performed By: #### 5 8410-2 #### [facility] CLIA [id number] [address] [place] [address] [place] CO2 [Moles/Vol] 23 mmol/L Normal 22-30 [facility] Comment on above: Order Comment: Jonas florez Type: BLOOD SPECIMEN Ordering Facility: [facility] Address: [address] [place] [address] Performed By: #### 5 8410-2 #### [facility] CLIA [id number] [address] STATES OF [facility] Creatinine [Mass/Vol] 0.83 mg/dL Normal 0.73-1.22 [facility] Comment on above: Order Comment: Jonas men Type: BLOOD SPECIMEN Ordering Facility: [facility] Address: [address] [place] [address] Performed By: #### 5 8410-2 #### [facility] CLIA [id number] [address] Creatinine and Glomerular filtration rate.predicted panel (S/P/Bld) 101 mL/min/1.73m??? Normal >=60 [facility] Comment on above: Order Comment: Jonas vikki Type: BLOOD SPECIMEN Ordering Facility: [facility] Address: [address] [place] [address] Result Comment: Bianca mated Glomerular Filtration Rate [...] #### 5 8410-2 #### [facility] CLIA [id number] [address] [place] Glucose [Mass/Vol] 200 mg/dL High 74-99 [facility] Comment on above: Order Comment: Jonas vikki Type: BLOOD SPECIMEN Ordering Facility: [facility] Address: [address] [place] [address] Result Comment: The [place] Diabetes [employer] (ADA) provides guidance for cutoff [...] Standards of Medical Care in Diabetes 2016, [place] [employer]. Diabetes Care. 2016.39(Suppl 1). Performed By: #### 5 8410-2 #### [facility] CLIA [id number] [address] [place] [address] [place] Phosphate [Mass/Vol] 3.0 mg/dL Normal 2.7-4.8 [facility] Comment on above: Order Comment: Speci men Type: BLOOD SPECIMEN Ordering Facility: [facility] Address: [address] [place] [address] Performed By: #### 5 8410-2 #### [facility] CLIA [id number] [address] [place] [address] [place] Potassium [Moles/Vol] 3.9 mmol/L Normal 3.7-5.1 [facility] Comment on above: Order Comment: Awaisi vikki Type: BLOOD SPECIMEN Ordering Facility: [facility] Address: [address] [place] [address] Performed By: #### 5 8410-2 #### [facility] CLIA [id number] [address] [place] [address] [place] Sodium [Moles/Vol] 139 mmol/L Normal 136-144 [facility] Comment on above: Order Comment: Speci men Type: BLOOD SPECIMEN Ordering Facility: [facility] Address: [address] [place] [address] Performed By: #### 5 8410-2 #### [facility] CLIA [id number] [address] [place] [address] [place] Urea nitrogen [Mass/Vol] 11 mg/dL Normal 9-24 [facility] Comment on above: Order Comment: Awaisi men Type: BLOOD SPECIMEN Ordering Facility: [facility] Address: [address] [place] [address] Performed By: #### 5 8410-2 #### [facility] IA [id number] [address] [place] [address] [facility] [place] THERAPY NTon 09-23-2024 THERAPY NT HNO ID: [id number] Author: JOSE ROSS CCC-SUPERVISOR DIALS Service: Speech/Swallow Author Type: Speech Language Pathologist Type: Therapy (PT/OT/Speech/Resp) Filed: 09/23/2024 18:21 Note Text: [facility] Speech Pathology - [facility] Bedside Swallow Evaluation SERVICE DATE: 09/23/2024 [...] CONSISTENCY Soft and Bite-Sized (L6) with Mildly Thick/[place] Thick (L2) liquids Limit distractions during intake Supervision / assistance with all PO Sit as upright as comfortably possible for all PO Alternate solids / liquids Feed at slow rate Small bites / sips Give medications whole in applesauce / pudding only if problematic with nectar thick liquids If further concerns, please contact this SUPERVISOR DIALS for further assessment Speech / Swallowing therapy in house and after discharge, [facility] TBD [facility]AN: SUPERVISOR DIALS will follow in house. Jose Ross, [facility]-SUPERVISOR DIALS Pager # [phone] BRIEF DIAGNOSIS AND HISTORY: Mr. Evangelista Borrego [...] but demonstrates encephalomalacia in left paramedian occipital lobe". 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 Unclear chronicity of the occlusion. Patient was determined not to be a candidate for TNK given time from [facility]. Recommendation was made to give ASA load and keep patient flat. Patient transferred to [facility] SDU for further observation and workup. Upon [...] future visits. CONSISTENCIES GIVEN: Ice chips Water [place] thick liquid Pudding Crumbled Zach cracke (more content not included)... Normal [facility] THERAPY NT HNO ID: [id number] Author: NYLA PELAYO OT/L Service: Occupational Therapy Author Type: Occupational Therapist Type: Therapy (PT/OT/Speech/Resp) Filed: 09/23/2024 16:28 Note Text: Occupational Therapy Evaluation Summary SERVICE DATE: 09/23/2024 SERVICE TIME: 1529 to 1607 ROOM: [place] [address] OT 6 Clicks Score: 16 DISCHARGE RECOMMENDATIONS [...] lives with 2 sons Entry To Home: ("Some here and there") PRIOR FUNCTIONAL LEVEL Unable to Report Pt [...] of New Positive 4AT Score: Rosalie Elena NP (09/23/24) Delirium Positive/Negative: Positive (09/23/24) Cognitive Activities [...] of coordination-other TREATMENT INTERVENTIONS Evaluation, Cognitive Training (02121 and 90724), Self Fdc Management (88651) Timed Code Treatment (minutes): 23 Skilled Treatment [...] Chair Toilet/Comm (more content not included)... Normal [facility] THERAPY NT HNO ID: [id number] Author: ALEXIA VALENTE, PT Service: Physical Therapy Author Type: Physical Therapist Type: Therapy (PT/OT/Speech/Resp) Filed: 09/23/2024 14:04 Note Text: Physical Therapy Evaluation Summary SERVICE DATE: 09/23/2024 SERVICE TIME: 1302 to 1342 ROOM: [place] [address] PT 6 Clicks Score: 13 DISCHARGE RECOMMENDATIONS [...] lives with 2 sons Entry To Home: ("Some here and there") PRIOR FUNCTIONAL LEVEL Poor Historian, Within Functional Limits Pt poor historian 2/2 expressive deficits. Able to report no AD use and that he lives with his 2 sons. Reports he has not driven in a while. Denies falls. SUBJECTIVE Agreeable to PT THERAPY DIAGNOSIS Reduced mobility-other, Muscle Weakness (generalized), Unsteadiness on feet, Abnormalities of gait and mobility-other TREATMENT INTERVENTIONS Evaluation, Therapeutic Activity (47328) Timed Code Treatment (minutes): 25 Skilled Treatment [...] Activities SIGNATURE: Alexia Valente, PT PATIENT NAME: Evangelsita Borrego JR DATE: September 23, 2024 TIME: 2:04 PM Normal [facility] TOXICOLOGY SCREEN, ROUTINE U RINEon 09-23-2024 Amphetamines Confirm (U) [Mass/Vol] Negative Normal Negative [facility] Comment on above: Order Comment: Speci men Type: URINE SPECIMENOrdering Facility: [facility] Address: [address] [place] [address] Result Comment: Cuto ff threshold at 1000 ng/mL. Performed By: #### U TOX2 ####[facility] LABCLIA [id number] [place] [address] [place] BARBITURATES, URINE Negative Normal Negative [facility] Comment on above: Order Comment: Speci men Type: URINE SPECIMENOrdering Facility: [facility] Address: [address] [place] [address] Result Comment: Cuto ff threshold at 200 ng/mL. Performed By: #### U TOX2 ####[facility] LABCLIA [id number] [place] [address] [place] BENZODIAZEPINES, UR Negative Normal Negative [facility] Comment on above: Order Comment: Speci men Type: URINE SPECIMENOrdering Facility: [facility] Address: [address] [place] [address] Result Comment: Cuto ff threshold at 200 ng/mL. Performed By: #### U TOX2 ####[facility] LABCLIA [id number] [place] [address] [place] Cannabinoids Screen Ql (U) Negative Normal Negative [facility] Comment on above: Order Comment: Speci men Type: URINE SPECIMENOrdering Facility: [facility] Address: [address] [place] [address] Result Comment: Cuto ff threshold at 50 ng/mL. Performed By: #### U TOX2 ####[facility]IA [id number] [place] [address] [place] Cocaine Ql (U) Negative Normal Negative [facility] Comment on above: Order Comment: Speci men Type: URINE SPECIMENOrdering Facility: [facility] Address: [address] [place] [address] Result Comment: Cuto ff threshold at 300 ng/mL. Performed By: #### U TOX2 ####[facility]CLIA [id number] [place] [address] [place] Ethanol (U) [Mass/Vol] <11 Normal <11 Cl [facility] Comment on above: Order Comment: Speci men Type: URINE SPECIMENOrdering Facility: [facility] Address: [address] [place] [address] Performed By: #### U TOX2 ####[facility]CLIA [id number] [place] [address] [place] Opiates Screen Ql (U) Negative Normal Negative [facility] Comment on above: Order Comment: Speci men Type: URINE SPECIMENOrdering Facility: [facility] Address: [address] [place] [address] Result Comment: Cuto ff threshold at 300 ng/mL. Performed By: #### U TOX2 ####[facility]CLIA [id number] [address] [place] oxyCODONE cutoff Screen (U) [Mass/Vol] Negative Normal Negative [facility] Comment on above: Order Comment: Speci men Type: URINE SPECIMENOrdering Facility: [facility] Address: [address] [place] [address] Result Comment: Cuto ff threshold at 100 ng/mL. Performed By: #### U TOX2 ####[facility] LABIA [id number] [address] [place] Phencyclidine Ql (U) Negative Normal Negative [facility] Comment on above: Order Comment: Speci men Type: URINE SPECIMENOrdering Facility: [facility] Address: [address] [place] [address] Result Comment: Cuto ff threshold at 25 ng/mL. Performed By: #### U TOX2 ####[facility]IA [id number] [place] [address] [place] .Auto Diffon 09-22-2024 Basophil, Absolute 0.1 10 3/mcL Normal 0.0-0.2 [facility] Comment on above: Performed By: #### L AC, ANEU, TROPHS, MDW, PRO, APTT, CRE, CBC, GFR, ADIFF #### [address] [address] Basophils/100 WBC (Bld) 1.0 % Normal 0.0-2.5 [facility] Comment on above: Performed By: #### L AC, ANEU, TROPHS, MDW, PRO, APTT, CRE, CBC, GFR, ADIFF #### [address] [address] Eosinophil, Absolute 0.1 10 3/mcL Normal 0.0-0.7 [facility] Comment on above: Performed By: #### L AC, ANEU, TROPHS, MDW, PRO, APTT, CRE, CBC, GFR, ADIFF #### [address] [address] Eosinophils/100 WBC (Bld) 1.9 % Normal 0.0-7.0 [facility] Comment on above: Performed By: #### L AC, ANEU, TROPHS, MDW, PRO, APTT, CRE, CBC, GFR, ADIFF #### [address] [address] Lymphocyte, Absolute 2.1 10 3/mcL Normal 0.9-4.3 [facility] Comment on above: Performed By: #### L AC, ANEU, TROPHS, MDW, PRO, APTT, CRE, CBC, GFR, ADIFF #### [address] [address] Lymphocytes/100 WBC (Bld) 31.5 % Normal 20.0-40.0 [facility] Comment on above: Performed By: #### L AC, ANEU, TROPHS, MDW, PRO, APTT, CRE, CBC, GFR, ADIFF #### [address] [address] Monocyte, Absolute 0.6 10 3/mcL Normal 0.1-1.4 [facility] Comment on above: Performed By: #### L AC, ANEU, TROPHS, MDW, PRO, APTT, CRE, CBC, GFR, ADIFF #### [address] [address] Monocytes/100 WBC (Bld) 8.5 % Normal 2.0-13.0 [facility] Comment on above: Performed By: #### L AC, ANEU, TROPHS, MDW, PRO, APTT, CRE, CBC, GFR, ADIFF #### [address] [address] Neutrophils/100 WBC (Bld) 57.1 % Normal 50.0-75.0 [facility] Comment on above: Performed By: #### L AC, ANEU, TROPHS, MDW, PRO, APTT, CRE, CBC, GFR, ADIFF #### [address] [address] .GFRon 09-22-2024 Estimated Glomerular Filtration Rate 95 ml/min/1.73sqm Normal [facility] Comment on above: Result Comment: Stages [...] the eGFR results. Performed By: #### L AC, ANEU, TROPHS, MDW, PRO, APTT, CRE, CBC, GFR, ADIFF #### [address] [place], [place] [address] .MDWon 09-22-2024 Monocyte Distribution Width 20.00 Normal 0.00-20.00 [facility] Comment on above: Result Comment: For ED adult patients suspected of sepsis, MDW<=20.0 does not rule out sepsis or risk of sepsis Performed By: #### L AC, ANEU, TROPHS, MDW, PRO, APTT, CRE, CBC, GFR, ADIFF #### [address] [address] .NEUABSon 09-22-2024 Neutrophil, Absolute 3.8 10 3/mcL Normal 2.3-8.1 [facility] Comment on above: Performed By: #### L AC, ANEU, TROPHS, MDW, PRO, APTT, CRE, CBC, GFR, ADIFF #### [place] [address] APTTon 09-22-2024 aPTT Coag (Bld) [Time] 28.2 s Normal 25.0-35.0 [facility] Comment on above: Result Comment: For Heparin anticoagulation therapy, the recommended therapeutic range is: 45.4-75.9 seconds. Patients on heparin therapy may have an extreme result. Performed By: #### L AC, ANEU, TROPHS, MDW, PRO, APTT, CRE, CBC, GFR, ADIFF ####[place] [address] CBCon 09-22-2024 Erythrocyte distribution width (RBC) [Ratio] 13.7 % Normal 11.5-15.5 [facility] Comment on above: Performed By: #### L AC, ANEU, TROPHS, MDW, PRO, APTT, CRE, CBC, GFR, ADIFF #### [place] [address] Hematocrit (Bld) [Volume fraction] 43.6 % Normal 40.0-52.0 [facility] Comment on above: Performed By: #### L AC, ANEU, TROPHS, MDW, PRO, APTT, CRE, CBC, GFR, ADIFF #### [place] [address] Hgb 15.8 G/dL Normal 13.0-17.5 [facility] Comment on above: Performed By: #### L AC, ANEU, TROPHS, MDW, PRO, APTT, CRE, CBC, GFR, ADIFF #### [address] [address] MCH (RBC) [Entitic mass] 31.1 pg Normal 27.0-33.0 [facility] Comment on above: Performed By: #### L AC, ANEU, TROPHS, MDW, PRO, APTT, CRE, CBC, GFR, ADIFF #### [address] [address] MCHC 36.3 G/dL High 32.0-36.0 [facility] Comment on above: Performed By: #### L AC, ANEU, TROPHS, MDW, PRO, APTT, CRE, CBC, GFR, ADIFF #### [address] [address] MCV (RBC) [Entitic vol] 85.8 fL Normal 81.0-100.0 [facility] Comment on above: Performed By: #### L AC, ANEU, TROPHS, MDW, PRO, APTT, CRE, CBC, GFR, ADIFF #### [address] [address] Platelet 239 10 3/mcL Normal 150-450 [facility] Comment on above: Performed By: #### L AC, ANEU, TROPHS, MDW, PRO, APTT, CRE, CBC, GFR, ADIFF #### [address] [address] Platelet mean volume (Bld) [Entitic vol] 7.6 fL Normal 6.4-10.5 [facility] Comment on above: Performed By: #### L AC, ANEU, TROPHS, MDW, PRO, APTT, CRE, CBC, GFR, ADIFF #### [address] [address] RBC 5.08 10 6/mcL Normal 4.50-6.00 [facility] Comment on above: Performed By: #### L AC, ANEU, TROPHS, MDW, PRO, APTT, CRE, CBC, GFR, ADIFF #### [address] [address] WBC 6.7 10 3/mcL Normal 4.5-10.8 [facility] Comment on above: Performed By: #### L AC, ANEU, TROPHS, MDW, PRO, APTT, CRE, CBC, GFR, ADIFF #### [facility] [address] [place], [place] [address] CBC panel Auto (Bld)on 09-22 Erythrocyte distribution width (RBC) [Ratio] 12.7 % Normal 11.5-15.0 [facility] Comment on above: Order Comment: Speci men Type: BLOOD SPECIMEN Ordering Facility: [facility] Address: [address] [place] [address] Performed By: #### 5 8410-2 #### [facility] CLIA [id number] [address] Hematocrit (Bld) [Volume fraction] 39.5 % Normal 39.0-51.0 [facility] Comment on above: Order Comment: Speci men Type: BLOOD SPECIMEN Ordering Facility: [facility] Address: [address] [place] [address] Performed By: #### 5 8410-2 #### [facility] CLIA [id number] [address] Hemoglobin (Bld) [Mass/Vol] 14.1 g/dL Normal 13.0-17.0 [facility] Comment on above: Order Comment: Speci men Type: BLOOD SPECIMEN Ordering Facility: [facility] Address: [address] [place] [address] Performed By: #### 5 8410-2 #### [facility] CLIA [id number] [address] STATES [facility] MCH (RBC) [Entitic mass] 30.3 pg Normal 26.0-34.0 [facility] Comment on above: Order Comment: Speci men Type: BLOOD SPECIMEN Ordering Facility: [facility] Address: [address] [place] [address] Performed By: #### 5 8410-2 #### [facility] CLIA [id number] [address] MCHC (RBC) [Mass/Vol] 35.7 g/dL Normal 30.5-36.0 [facility] Comment on above: Order Comment: Speci men Type: BLOOD SPECIMEN Ordering Facility: [facility] Address: [address] [place] [address] Performed By: #### 5 8410-2 #### [facility] CLIA [id number] [address] [place] MCV (RBC) [Entitic vol] 84.8 fL Normal 80.0-100.0 [facility] Comment on above: Order Comment: Speci men Type: BLOOD SPECIMEN Ordering Facility: [facility] Address: [address] [place] [address] Performed By: #### 5 8410-2 #### [facility] CLIA [id number] [address] [place] Nucleated RBC (Bld) [#/Vol] 10*3/uL Normal <0.01 [facility] Comment on above: Order Comment: Speci men Type: BLOOD SPECIMEN Ordering Facility: [facility] Address: [address] [place] [address] Performed By: #### 5 8410-2 #### [facility] CLIA [id number] 1000 [place] [address] [place] Platelet mean volume (Bld) [Entitic vol] 9.9 fL Normal 9.0-12.7 [facility] Comment on above: Order Comment: Speci men Type: BLOOD SPECIMEN Ordering Facility: [facility] Address: [address] [place] [address] Performed By: #### 5 8410-2 #### [facility] CLIA [id number] 1000 [place] [address] [place] Platelets (Bld) [#/Vol] 221 10*3/uL Normal 150-400 [facility] Comment on above: Order Comment: Speci men Type: BLOOD SPECIMEN Ordering Facility: [facility] Address: [address] [place] [address] Performed By: #### 5 8410-2 #### [facility] CLIA [id number] 1000 [place] [address] [place] RBC (Bld) [#/Vol] 4.66 10*6/uL Normal 4.20-6.00 [facility] Comment on above: Order Comment: Speci men Type: BLOOD SPECIMEN Ordering Facility: [facility] Address: [address] [place] [address] Performed By: #### 5 8410-2 #### [facility] CLIA [id number] [address] [place] [address] [place] WBC (Bld) [#/Vol] 5.93 10*3/uL Normal 3.70-11.00 [facility] Comment on above: Order Comment: Speci men Type: BLOOD SPECIMEN Ordering Facility: [facility] Address: [address] [place] [address] Performed By: #### 5 8410-2 #### [facility] CLIA [id number] [address] [place] [address] [place] CREon 09-22-2024 Creatinine [Mass/Vol] 0.93 mg/dL Normal 0.70-1.30 [facility] Comment on above: Result Comment: Test ing performed on Siemens Dimension EXL analyzer using a modified kinetic Aminah technique. 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 Changes of this report, as well as communication of the left OFFICE SERVICES ASSISTANT P1 segment occlusion, was communicated to Dr. [...] Date: 09/22/2024 6:46:32 PM Ordering Provider: CASSIE Gupta [facility] HISTORY PHYSICALon HISTORY PHYSICAL HNO ID: [id number] Author: MEGAN CORRAL DO Service: Neurology General Author Type: Resident Type: H&P Filed: 09/23/2024 20:04 Note Text: Attestation signed by Megan Corral DO at 09/23/2024 8:04 PM [facility] [place] BY [facility] ST[facility]FF PHYSIC[facility] NOTE OF PERSONAL INVOLVEMENT IN [...] but demonstrates encephalomalacia in left paramedian occipital lobe". 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 Unclear chronicity of the occlusion. Patient was determined not to be a candidate for TNK given time from [facility]. Recommendation was made to give ASA load and keep patient flat. Patient transferred to [facility] SDU for further observation and workup. Upon [...] to admission: Statin Pre-morbid mRS: Premorbid Modified Wallula Score: 1 - No significant disability despite symptoms - able to carry out all usual duties and activities PAST MEDICAL HISTORY Diagnosis Date Generalized anxiety disorder Anxiety, Generalized Mixed hyperlipidemia Hyperlipidemia Seizures (HCC) Type II or unspecified type diabetes mellitus without mention of complication, not stated as uncontrolled PAST SURGICAL HISTORY Procedure Laterality Date ANESTHESIA ARTHROSCOPIC PROCEDURE ANKLE AND FOOT COL[facility]OSCOPY [facility]LASTY AND/TRANSPOS MEDIAN NRV CARPAL TUNNE Carpal [...] cyclobenzaprine (FLEXERIL (more content not included)... Normal [facility] HbA1c (Bld)on 09-22-2024 Average glucose Estimated from glycated hemoglobin (Bld) [Mass/Vol] 232 mg/dL Normal [facility] Comment on above: Order Comment: Jonas florez Type: BLOOD SPECIMEN [facility] Address: [address] [place] [address] Result Comment: eAG: (Estimated average glucose) is a calculated value from HgbA1c and is professional healthcare representative of the average blood glucose level in the last 2-3 month period. Performed By: #### 5 8410-2 #### [facility] CLIA [id number] [address] [place] [address] [place] HbA1c (Bld) [Mass fraction] 9.7 % High 4.3-5.6 [facility] Comment on above: Order Comment: Speci men Type: BLOOD SPECIMEN Ordering Facility: [facility] Address: [address] [place] [address] Result Comment: Chantell ican Diabetes Association guidelines indicate that patients with HgbA1c in the range 5.7-6.4% are at increased risk for development of diabetes, and intervention by lifestyle modification may be beneficial. HgbA1c greater or equal to 6.5% is considered diagnostic of diabetes. Performed By: #### 5 8410-2 #### [facility] CLIA [id number] [address] [place] [address] [facility] LABORATORYOrdered By: SYSTEM SYSTEM on 09-22-2024 aPTT [...] Dimension EXL analyzer using a modified kinetic Mainah technique. Eosinophil, Absolute 0.1 103/mcL Normal 0.0 [...] Comment on above: Interpretive Data: Carlee zaragoza [employer] (CHEST, 1991, 102:312S-25S) [...] ng/L Male: 0-76 ng/L Testing performed on Soufun using a homogeneous sandwich chemiluminescent immunoassay based on [employer] Now[employer] technology. WBC (Bld) [#/Vol] 6.7 103/mcL Normal 4.5 - 10.8 10^3/mcL [facility] LABORATORYOrdered By: Randall Jones on 09-22-2024 Glucose [Mass/Vol] 258 mg/dL High 70 - 110 mg/dL [facility] LACon 09-22-2024 Lactic Acid Lvl 0.9 mmol/L Normal 0.4-2.0 [facility] Comment on above: Performed By: #### L AC, ANEU, TROPHS, MDW, PRO, APTT, CRE, CBC, GFR, ADIFF ####[facility] [place] [id number] LIPID PANEL, NONFASTINGon Cholesterol [Mass/Vol] 193 mg/dL Normal <200 Cl [facility] Comment on above: Order Comment: Speci men Type: BLOOD SPECIMEN Ordering Facility: [facility] Address: [address] [place] [address] Result Comment: <200 mg/dL, Desirable 200-239 mg/dL, Borderline high >239 mg/dL, High Performed By: #### 3 969-3 #### [facility] CLIA [id number] [facility] [place] [address] [place] [facility] HDL CHOLESTEROL, NF 31 mg/dL Low >39 [facility] Comment on above: Order Comment: Awaisi vikki Type: BLOOD SPECIMEN Ordering Facility: [facility] Address: [address] [place] [address] Result Comment: 40-5 9 mg/dL, Acceptable >59 mg/dL, High: Negative risk factor for coronary heart disease <40 mg/dL, Low: Positive risk factor for coronary heart disease Performed By: #### 3 969-3 #### [facility] CLIA [id number] [address] [place] [address] [place] [facility] LDL CHOLESTEROL, NF Normal [facility] Comment on above: Order Comment: [facility] Type: BLOOD SPECIMEN Ordering Facility: [facility] Address: [address] [place] [address] Result Comment: Unab le to calculate due to increased Triglycerides. A Direct LDL Cholesterol measurement will not be performed. If clinically indicated, a fasting Basic Lipid Panel (LIPB) may be ordered. Performed By: #### 3 969-3 #### [facility] CLIA [id number] [address] [place] [address] [place] LDL/HDL RATIO, NF Normal [facility] Comment on above: Order Comment: [facility] Type: BLOOD SPECIMEN Ordering Facility: [facility] Address: [address] [place] [address] Result Comment: Unab le to calculate due to elevated Triglycerides. Reference: 1. National Cholesterol Education Program ATP III Guideline At-A-Glance Quick Desk Reference: National Heart, Lung, and Blood Rimforest. National Institutes of Health. 2001: NIH Publication No. 01-3305. 2. An International Atherosclerosis Society position paper: global recommendations for the management of dyslipidemia: executive summary, Atherosclerosis. 2014: 232(2):410-413. Performed By: #### 3 969-3 #### [facility] CLIA [id number] [facility] [place] [address] [place] NON HDL CHOL, NF 162 mg/dL High <[address] [facility] Comment on above: Order Comment: Speci men Type: BLOOD SPECIMEN Ordering Facility: [facility] Address: [address] [place] [address] Result Comment: <130 mg/dL, Optimal 130-159 mg/dL, Near optimal/above optimal 160-189 mg/dL, Borderline high 190-219 mg/dL, High >219 mg/dL, Very high Secondary prevention optimal non HDL Cholesterol levels are recommended to be <100 mg/dL Performed By: #### 3 969-3 #### [facility] CLIA [id number] [address] [place] [address] [place] T CHOL/HDL RATIO NF 6.23 mg/dL High <5.10 [facility] Comment on above: Order Comment: Speci men Type: BLOOD SPECIMEN Ordering Facility: [facility] Address: [address] [place] [address] Performed By: #### 3 969-3 #### [facility] CLIA [id number] [address] [place] [address] [place] TRIGLYCERIDES, NF 641 mg/dL High <150 [facility] Comment on above: Order Comment: Speci men Type: BLOOD SPECIMEN Ordering Facility: [facility] Address: [address] [place], [place] [address] Result Comment: <150 mg/dL, Normal 150-199 mg/dL, Borderline high 200-499 mg/dL, High >499 mg/dL, Very high Performed By: #### 3 969-3 #### [facility] CLIA [id number] [address] [place] [address] [place] VLDL CHOLESTEROL, NF Normal [facility] Comment on above: Order Comment: Speci men Type: BLOOD SPECIMEN Ordering Facility: [facility] Address: [address] [place] [address] Result Comment: Unab le to calculate due to elevated Triglycerides. Performed By: #### 3 969-3 #### [facility] CLIA [id number] [address] [place] [address] [place] PROon 09-22-2024 PT Coag (PPP) [Time] 11.5 s Normal 9.0-14.4 [facility] Comment on above: Performed By: #### L AC, ANEU, TROPHS, MDW, PRO, APTT, CRE, CBC, GFR, ADIFF ####[facility] [place], [place] [address] PT International Ratio 1.0 Normal [facility] Comment on above: Result Comment: The [employer] (CHEST, 1991, 102:312S-25S) recommended therapeutic range for oral anticoagulant therapy is: LOW RISK: Prophylaxis of venous thrombosis INR: 2.0-3.0 Treatment of pulmonary embolism 2.0-3.0 Prevention of systemic embolism 2.0-3.0 HIGH RISK: Mechanical prosthetic valves 2.5-3.5 Performed By: #### L AC, ANEU, MESHAS, MDW, PRO, APTT, CRE, CBC, GFR, ADIFF ####[place] [address] [place], [place] [address] Renal function 2000 panelon 09-22-2024 Albumin [Mass/Vol] 3.8 g/dL Low 3.9-4.9 [facility] Comment on above: Order Comment: Speci men Type: BLOOD SPECIMEN Ordering Facility: [facility] Address: [address] [place] [address] Performed By: #### 3 969-3 #### [facility] CLIA [id number] [address] [place] [address] [place] Anion gap [Moles/Vol] 13 mmol/L Normal 8-15 [facility] Comment on above: Order Comment: Speci men Type: BLOOD SPECIMEN Ordering Facility: [facility] Address: [address] [place] [address] Performed By: #### 3 969-3 #### [facility] CLIA [id number] [address] [place], [place] [address] [place] Calcium [Mass/Vol] 8.9 mg/dL Normal 8.5-10.2 [facility] Comment on above: Order Comment: Speci men Type: BLOOD SPECIMEN Ordering Facility: [facility] Address: [address] [place] [address] Performed By: #### 3 969-3 #### [facility] CLIA [id number] [address] [place] [address] [place] Chloride [Moles/Vol] 101 mmol/L Normal 98-107 [facility] Comment on above: Order Comment: Speci men Type: BLOOD SPECIMEN Ordering Facility: [facility] Address: [address] [place] [address] Performed By: #### 3 969-3 #### [facility] CLIA [id number] [address] [place] [address] [place] CO2 [Moles/Vol] 23 mmol/L Normal 22-30 [facility] Comment on above: Order Comment: Speci men Type: BLOOD SPECIMEN Ordering Facility: [facility] Address: [address] [place] [address] Performed By: #### 3 969-3 #### [facility] CLIA [id number] [address] [place] [address] [place] Creatinine [Mass/Vol] 0.70 mg/dL Low 0.73-1.22 [facility] Comment on above: Order Comment: Speci men Type: BLOOD SPECIMEN Ordering Facility: [facility] Address: [address] [place] [address] Performed By: #### 3 969-3 #### [facility] CLIA [id number] [address] [place] [address] [place] Creatinine and Glomerular filtration rate.predicted panel (S/P/Bld) 107 mL/min/1.73m??? Normal >=60 [facility] Comment on above: Order Comment: Jonas florez Type: BLOOD SPECIMEN Ordering Facility: [facility] Address: [address] [place] [address] Result Comment: Bianca mated Glomerular Filtration Rate [...] GFR. Performed By: #### 3 969-3 #### [facility] CLIA [id number] [address] [place] [address] [place] Glucose [Mass/Vol] 186 mg/dL High 74-99 [facility] Comment on above: Order Comment: Jonas florez Type: BLOOD SPECIMEN Ordering Facility: [facility] Address: [address] [place] [address] Result Comment: The [place] Diabetes Association (ADA) provides guidance for cutoff [...] Standards of Medical Care in Diabetes 2016, [place]. Diabetes Care. 2016.39(Suppl 1). Performed By: #### 3 969-3 #### [facility] CLIA [id number] [address] [place] [address] [place] Phosphate [Mass/Vol] 3.2 mg/dL Normal 2.7-4.8 [facility] Comment on above: Order Comment: Speci men Type: BLOOD SPECIMEN Ordering Facility: [facility] Address: [address] [place] [address] Performed By: #### 3 969-3 #### [facility] CLIA [id number] [address] [place] [address] [place] Potassium [Moles/Vol] 3.6 mmol/L Low 3.7-5.1 [facility] Comment on above: Order Comment: Speci men Type: BLOOD SPECIMEN Ordering Facility: [facility] Address: [address] [place] [address] Performed By: #### 3 969-3 #### [facility] CLIA [id number] [address] [place] [address] [place] Sodium [Moles/Vol] 137 mmol/L Normal 136-144 [facility] Comment on above: Order Comment: Speci men Type: BLOOD SPECIMEN Ordering Facility: [facility] Address: [address] [place] [address] Performed By: #### 3 969-3 #### [facility] CLIA [id number] [address] [place] [address] [place] Urea nitrogen [Mass/Vol] 11 mg/dL Normal 9-24 [facility] Comment on above: Order Comment: Speci men Type: BLOOD SPECIMEN Ordering Facility: [facility] Address: [address] [place] [address] Performed By: #### 3 969-3 #### [facility] CLIA [id number] [address] [place], [place] [id number] [place] TROPHSon 09-22-2024 High Sensitivity Troponin I 10 ng/L Normal 0-76 [facility] Comment on above: Result Comment: High Sensitive Troponin I Reference Ranges: Female: 0-51 ng/L Male: 0-76 ng/L Testing performed on Soufun using a homogeneous sandwich chemiluminescent immunoassay based on [employer] Now! technology. Performed By: #### L AC, ANEU, JUICE LOVE, PRO, APTT, CRE, CBC, GFR, ADIFF ####[facility] [place], [place] [address] XR CHEST 1 VIEWon 09-22-2024 XR CHEST [...] 09/22/2024 7:23:01 PM Ordering Provider: CASSIE SMITH [facility] 36on 08-05-2024 36 Patient will get refills at upcoming appointment on 08/08/24 [facility] 36on 07-30-2024 36 Ordering provider: Miquel Date [...] of last refill (see medication tab): 03/29/2024 [facility] 36 Recent Visits Date Type Provider Dept 05/02/24 Office Visit Nena Pardo DO [facility] 03/29/24 Office Visit Nena Pardo DO [facility] Showing recent visits within past 365 days and meeting all other requirements Future Appointments Date Type Provider Dept 08/08/24 Appointment Nena Pardo DO [facility] Showing future appointments within next 90 days [...] completed in chart? N/A Normal [facility] AMB POC GLUCOSE TESTon 05-02 Glucose [Mass/Vol] 210 mg/dL Abnormal 70 - 100 mg/dL [facility] Interpretation and review of laboratory results Abnormal [facility] Office Visiton 05-02-2024 Follow-up visit [id number] Evangelista Borrego 1965 [facility] Provider Department [place] 05/02/2024 [id number] PARDO [facility] Family History Problem Relation Age of Onset High Blood Pressure Mother Heart attack Mother Family Status - Relation Status Age at Mother Father Notes: unknown Level of Service:87401 MD OFFICE/OUTPATIENT ESTABLISHED MOD MDM 30 MIN Reason for Visit and Comments: Follow-up [655134] Flu Vaccine [189] - Patient has declined to receive influenza vaccine in the office. Normal [facility] Progress Noteon 05-02-2024 Progress Note [facility] - [address] [facility] [id number] Visit type: Established Patient Reason for [...] 30 min Stress: Stress Concern Present (04/03/2024) [employer] - Occupational Stress Questionnaire [...] Objective BP 136/78 Pulse 60 Ht 5' 6" (1.676 m) Wt 285 lb (129 (more content not included)... [facility] 04-12-2024 36 (2nd attempt) Called today to schedule screening colonoscopy (surveillance program) Left message to call the screening program at [phone] [facility] 2024 36 Screening Colonoscopy (Screening/surveilla nce program) Called pt today to schedule colonoscopy Left message to call the screening program at [phone] [facility] 36on 04-04-2024 36 Scheduled [facility] 36on 04-03-2024 36 IRENA Brandon and tried to schedule his 4 week follow up. He was not at home when I called and said he would call back tomorrow. I told him to have call center to put him though to Ciara at office. Normal [facility] 36 Rx sent. Recommend FU in 4 weeks [place] [address] Patient in agreement to start Ozempic. Pt is aware this will need a prior auth. Patient is agreement to start Atorvastatin Normal [place] [address] Labs with A1c of 9.2 - this [...] better blood sugar control. Normal [facility] Comprehensive metabolic 1998 panelon 04-01-2024 Albumin [Mass/Vol] 4.4 g/dL 3.6 - 5.1 g/dL [facility] Albumin/Globulin [Mass ratio] 1.6 {ratio} [facility] ALP [Catalytic activity/Vol] 72 U/L 35 - 144 U/L [facility] ALT [Catalytic activity/Vol] 47 U/L High 9 - 46 U/L [facility] AST [Catalytic activity/Vol] 26 U/L 10 - 35 U/L [facility] Bilirubin [Mass/Vol] 0.5 mg/dL 0.2 - 1 .2 mg/dL [facility] Calcium [Mass/Vol] 9.4 mg/dL 8.6 - 10. 3 mg/dL [facility] Chloride [Moles/Vol] 104 mmol/L 98 - 11 0 mmol/L [facility] CO2 [Moles/Vol] 25 mmol/L 20 - 32 mmol/L [facility] Creatinine [Mass/Vol] 1.06 mg/dL 0.70 - 1.30 mg/dL [facility] GFR/1.73 sq M.predicted among non-blacks MDRD (S/P/Bld) [Vol rate/Area] 82 mL/min/{1.73_m2} > OR = 60 mL/min/1.73 m2 [facility] Globulin (S) [Mass/Vol] 2.8 g/dL S [facility] Glucose [Mass/Vol] 284 mg/dL High 65 - 139 mg/dL [facility] Comment on above: Non-fasting reference interval For someone without known diabetes, a glucose value >125 mg/dL indicates that they may have diabetes and this should be confirmed with a follow-up test. Potassium [Moles/Vol] 4.6 mmol/L 3.5 - 5.3 mmol/L [facility] Protein [Mass/Vol] 7.2 g/dL 6.1 - 8.1 g/dL [facility] Sodium [Moles/Vol] 139 mmol/L 135 - 146 mmol/L [facility] Urea nitrogen [Mass/Vol] 15 mg/dL 7 - 25 mg/dL [facility] Urea nitrogen/Creatinine [Mass ratio] SEE NOTE: [facility] Comment on above: Not Reported: BUN an d Creatinine are within reference range. Hemoglobin A1con 04-01-2024 HbA1c (Bld) [Mass fraction] 9.2 % High NINF [facility] Comment on above: For someone without known [...] children. This test was performed on the [employer] dominga c503 platform. Effective 07/10/23, a change in test platforms from the Ortega Box Sorter to the Kayleigh dominga c503 may have shifted HbA1c results compared to historical results. Based on laboratory validation testing conducted at [employer], the Kayleigh platform relative to the Ortega [...] HCV Ab IA Ql Non-Reactive NON-REACTIV E [facility] Comment on above: HCV antibody was non-reactive. There is no laboratory evidence of HCV infection. In most cases, no further action is required. However, if recent HCV exposure is suspected, a test for HCV RNA (test code 24424) is suggested. For additional information please refer to http://education.Aptidata/faq/FMT24a8 (This link is being provided for informational/ educational purposes only.) Lipid 1996 panelon 4 Cholesterol [Mass/Vol] 169 mg/dL [facility] - 200 mg/dL [facility] Cholesterol in HDL [Mass/Vol] 34 mg/dL Low > OR = 40 [facility] Cholesterol in LDL [Mass/Vol] 99 mg/dL mg/dL (calc) [facility] Comment on above: Reference range: <10 0 Desirable range <100 mg/dL for primary prevention; <70 mg/dL for patients with CHD or diabetic patients with > or = 2 CHD risk factors. LDL-C is now calculated using the Himanshu-Davis calculation, which is a validated novel method providing better accuracy than the Friedewald equation in the estimation of LDL-C. Himanshu MCDONNELL et al. KYM. 2013;310(19): 6076-0971 (http://education.Vast.Kanari/faq/CGX345) Cholesterol non HDL [Mass/Vol] 135 mg/dL High [facility] Comment on above: For patients with di abetes plus 1 major ASCVD risk factor, treating to a non-HDL-C goal of <100 mg/dL (LDL-C of <70 mg/dL) is considered a therapeutic option. Cholesterol.total/Shiela sterol in HDL [Mass ratio] 5.0 {ratio} High [facility] Triglyceride [Mass/Vol] 237 mg/dL High [facility] - 150 mg/dL [facility] Comment on above: If a non-fasting specimen was collected, consider repeat triglyceride testing on a fasting specimen if clinically indicated. Barry et al. J. of Clin. Lipidol. 2015;9:129-169. Microalbumin/Creatinine rati o panel (U)on 04-01-2024 Albumin DL <= 20 mg/L (U) [Mass/Vol] 31.2 mg/dL See Note: [employer] Comment on above: Reference Range: Reference Range Not established Verified by repeat analysis. Albumin/Creatinine (U) [Mass ratio] 207 High NINF [facility] Comment on above: The ADA defines abnormalities [...] [Mass/Vol] 151 mg/dL 20 - 320 mg/dL [facility] No Panel Informationon 04-01 Interpretation and review of laboratory results Abnormal [facility] 36on 03-29-2024 36 Corrected rx sent [place] [address] I apologize, I did not scroll down far enough to see Ciara's message and received the answer for Dr. Pardo. The patient stated he was taking 200 MG in the AM, 200 MG in the afternoon, and 100 MG at night. Please advise and call the patient back if any further information is needed. Normal [facility] 36 LVM Please put patient through to Ciara at office . Medication question [place] [address] What dosages was he taking to get to 500 mg? The rx I sent was for 100 mg TID Normal [place] [address] Name of caller: Brett Contact phone number: [phone] Relationship to Patient: [facility] Pharmacy Provider: Dr. Pardo Practice: [facility] Chief Complaint/Reason for Call: dosage - phenytoin ER (Dilantin) 100 MG. Sent in for 100mg tablets for frequency 3 times daily, so 300mg daily; HOWEVER, on same script "Take 1 capsule (100 mg) by mouth 3 times daily. Patient states he should be on 500 mg". Should this be 300mg or 500mg. Please return call to address. Normal [facility] Office Visiton 03-29-2024 Follow-up visit [id number] Evangelista Borrego 1965 M Date Provider Department Center 03/29/2024 [id number] PARDO [facility] Family History Problem Relation Age of Onset High Blood Pressure Mother Heart attack Mother Family Status - Relation Status Age at Mother Father Notes: unknown Level of Service:65362 MD OFFICE/OUTPATIENT NEW MODERATE MDM 45 MINUTES Reason for Visit and Comments: Establish Care [42] - Patient states he was dismissed from previous practice. He states the previous doctor refused to refill his meds and he has been without for 5-6 months. Marcell historian on medications Normal [facility] Progress Noteon 03-29-2024 Progress Note [facility] [address] [facility] [address] Visit type: New Patient Reason for Visit: Establish Care (Patient states he was dismissed from previous practice. He states the previous doctor refused to refill his meds and he has been without for 5-6 months. Marcell historian on medications ) Assessment and Plan Diagnoses and all orders for this visit: Type 2 diabetes mellitus without complication, without long-term current use of insulin ([facility] ([facility]) - Comprehensive metabolic panel; Future - Lipid [...] restart gabapentin Screen for colon cancer - [facility] Gastroenterology; Future Impacted cerumen, bilateral Verbal informed [...] HAND S (more content not included)... Normal [facility] Basic Metabolic Panelon 11-2 Anion gap [Moles/Vol] 11 mmol/L Normal 7-16 [facility] Calcium [Mass/Vol] 9.1 mg/dL Normal 8.6-10.2 [facility] Chloride [Moles/Vol] 101 mmol/L Normal 98-107 [facility] CO2 [Moles/Vol] 27 mmol/L Normal 22-29 [facility] Creatinine [Mass/Vol] 1.0 mg/dL Normal 0.7-1.2 [facility] GFR Calculated >60 Normal >=60 [facility] Comment on above: Result Comment: Sue [...] secretion. Glucose [Mass/Vol] 185 mg/dL High 74-99 [facility] Potassium [Moles/Vol] 4.6 mmol/L Normal 3.5-5.0 [facility] Sodium [Moles/Vol] 139 mmol/L Normal 132-146 [facility] Urea nitrogen [Mass/Vol] 12 mg/dL Normal 6-20 [facility] CBC With Platelet and Differ entialon 06-14-2022 Abs Imm Granulocytes 0.02 E9/L Normal [facility] Absolute Basophils 0.03 E9/L Normal 0.00-0.20 [facility] Absolute Eosinophils 0.09 E9/L Normal 0.05-0.50 [facility] Absolute Lymphocytes 1.64 E9/L Normal 1.50-4.00 [facility] Absolute Monocytes 0.30 E9/L Normal 0.10-0.95 [facility] Absolute Neutrophils 3.00 E9/L Normal 1.80-7.30 [facility] Basophils/100 WBC (Bld) 0.6 % Normal 0.0-2.0 [facility] Eosinophils/100 WBC (Bld) 1.8 % Normal 0.0-6.0 [facility] Hematocrit (Bld) [Volume fraction] 42.8 % Normal 37.0-54.0 [facility] Hemoglobin (Bld) [Mass/Vol] 15.5 g/dL Normal 12.5-16.5 [facility] Imm Granulocytes 0.4 % Normal 0.0-5.0 [facility] Lymphocytes/100 WBC (Bld) 32.3 % Normal 20.0-42.0 [facility] MCH (RBC) [Entitic mass] 31.3 pg Normal 26.0-35.0 [facility] MCHC 36.2 % High 32.0-34.5 [facility] MCV (RBC) [Entitic vol] 86.3 fL Normal 80.0-99.9 [facility] Monocytes/100 WBC (Bld) 5.9 % Normal 2.0-12.0 [facility] Neutrophils/100 WBC (Bld) 59.0 % Normal 43.0-80.0 [facility] Platelet Count 238 E9/L Normal 130-450 [facility] Platelet mean volume (Bld) [Entitic vol] 9.8 fL Normal 7.0-12.0 [facility] RBC 4.96 E12/L Normal 3.80-5.80 [facility] RDW 12.7 fL Normal 11.5-15.0 [facility] WBC 5.1 E9/L Normal 4.5-11.5 [facility] Magnesiumon 06-14-2022 Magnesium [Mass/Vol] 1.9 mg/dL Normal 1.6-2.6 [facility] Phenytoin Levelon 06-14-2022 Phenytoin [Mass/Vol] 0.8 ug/mL Low 10.0-20.0 [facility] Phenytoin Dosage Unknown Normal [facility] XR CHEST 2V FRONTAL/LATon [facility] XR Chest PA and Lateralon IMPRESSION: No acute radiographic abnormality. 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: [employer] Transcribe Date/Time: Feb 14 2022 3:17P Dictated by : YAZMIN JEAN MD This examination was interpreted and the report reviewed and electronically signed by: YAZMIN JEAN MD on Feb 14 2022 3:18PM EST [facility] Radiology Study observation (narrative) Zain upton [facility] XR Chest PA and LateralOrder ed By: [facility] Provider on 02-14-2022 [facility] CBC With Platelet and Differ entialon 01-09-2022 Abs Imm Granulocytes 0.03 E9/L Normal [facility] Absolute Basophils 0.05 E9/L Normal 0.00-0.20 [facility] Absolute Eosinophils 0.20 E9/L Normal 0.05-0.50 [facility] Absolute Lymphocytes 1.99 E9/L Normal 1.50-4.00 [facility] Absolute Monocytes 0.41 E9/L Normal 0.10-0.95 [facility] Absolute Neutrophils 3.98 E9/L Normal 1.80-7.30 [facility] Basophils/100 WBC (Bld) 0.8 % Normal 0.0-2.0 [facility] Eosinophils/100 WBC (Bld) 3.0 % Normal 0.0-6.0 [facility] Hematocrit (Bld) [Volume fraction] 38.1 % Normal 37.0-54.0 [facility] Hemoglobin (Bld) [Mass/Vol] 14.1 g/dL Normal 12.5-16.5 [facility] Imm Granulocytes 0.5 % Normal 0.0-5.0 [facility] Lymphocytes/100 WBC (Bld) 29.9 % Normal 20.0-42.0 [facility] MCH (RBC) [Entitic mass] 31.6 pg Normal 26.0-35.0 [facility] MCHC 37.0 % High 32.0-34.5 [facility] MCV (RBC) [Entitic vol] 85.4 fL Normal 80.0-99.9 [facility] Monocytes/100 WBC (Bld) 6.2 % Normal 2.0-12.0 [facility] Neutrophils/100 WBC (Bld) 59.6 % Normal 43.0-80.0 [facility] Platelet Count 269 E9/L Normal 130-450 [facility] Platelet mean volume (Bld) [Entitic vol] 11.1 fL Normal 7.0-12.0 [facility] RBC 4.46 E12/L Normal 3.80-5.80 [facility] RDW 13.0 fL Normal 11.5-15.0 [facility] WBC 6.7 E9/L Normal 4.5-11.5 [facility] CBC with Auto Differentialon 01-09-2022 Basophils (Bld) [#/Vol] 0.05 10*3/uL [facility] Basophils/100 WBC (Bld) 0.8 % 0.0 - 2.0 % [facility] Eosinophils Absolute 0.20 [facility] Eosinophils/100 WBC (Bld) 3 % 0.0 - 6.0 % [facility] Hematocrit (Bld) [Volume fraction] 38.1 % 37.0 - 54.0 % [facility] Hemoglobin (Bld) [Mass/Vol] 14.1 g/dL 12.5 - 16.5 g/dL [facility] Immature Granulocytes # 0.03 E9/L [facility] Immature granulocytes/100 WBC (Bld) 0.5 % 0.0 - 5.0 % [facility] Interpretation and review of laboratory results Abnormal [facility] Lymphocytes Absolute 1.99 [facility] Lymphocytes/100 WBC (Bld) 29.9 % 20.0 - 42.0 % [facility] MCH (RBC) [Entitic mass] 31.6 pg 26.0 - 35.0 pg [facility] MCHC (RBC) [Mass/Vol] 37.0 % High 32.0 - 34.5 % [facility] MCV (RBC) [Entitic vol] 85.4 fL 80.0 - 99.9 fL [facility] Monocytes Absolute 0.41 [facility] Monocytes/100 WBC (Bld) 6.2 % 2.0 - 12.0 % [facility] Neutrophils Absolute 3.98 [facility] Neutrophils/100 WBC (Bld) 59.6 % 43.0 - 80.0 % [facility] Platelet distribution width (Bld) [Ratio] 13.0 fL 11.5 - 15.0 fL [facility] Platelet mean volume (Bld) [Entitic vol] 11.1 fL 7.0 - 12.0 fL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 MMR Vaccines (1 of 1 - Standard series) [facility] Start: 1966 COVID-19 VACCINE (#1) COVID-19 VACCINE (#1) [facility] Start: 1966 Hemoglobin A1c measurement Diabetes: Hemoglobin A1C [facility] Start: 1966 Hepatitis B Vaccines (1 of 3 - 3-dose series) Hepatitis B Vaccines (1 of 3 - 3-dose series) [facility] Start: 1966 HIV screening HIV Screening [facility] Start: 1966 Lipid panel Lipid Panel [facility] Start: 1966 Screening for malignant neoplasm of colon [facility] Initiate Oxygen Therapy Protocol Initiate Oxygen Therapy Protocol Respiratory Care Routine Daily until discontinued starting 06/12/2019 [facility] [place] Comment on above: Daily until discontinued starting 2018 OUTSIDE VENDOR CARDI AC OUTPATIENT EXTENDED RHYTHM RECORDING (WITHOUT TELEMETRY) OUTSIDE VENDOR CARDIAC OUTPATIENT EXTENDED RHYTHM RECORDING (WITHOUT TELEMETRY) Holter Routine Cerebrovascular accident (CVA) due to occlusion of left posterior cerebral artery (HCC) Ordered: 09/27/2024 [facility] Work Phone: Comment on above: Ordered: 09/27/2024 End: 06-12-2019 Oxcarbazepine level Oxcarbazepine level Lab Routine One Time for 1 Occurrences starting 06/12/2019 until 06/12/2019 [facility] [employer] Comment on above: One Time for 1 Occurrences starting 05/25 until 06/12/2019 Patient referral [facility] Work Phone: POCT Glucose [facility] Comment on above: As Needed until discontinued starting 4X Daily (AC & HS) u ntil discontinued starting 06/13/2019 Immunizations Immunization Date Immunization Notes Care Provider Rosey lynn 04-12-2016 influenza virus vacc ine, unspecified formulation Xr [place] Work Phone: [facility] 08-11-2011 influenza virus vacc ine, unspecified formulation Jin Gilbert MD Work Phone: [facility] 05-19-2010 influenza virus vacc ine, unspecified formulation Jin Gilbert MD Work Phone: [facility] 03-01-2010 pneumococcal polysaccharide vaccine, 23 valent Jin Gilbert MD Work Phone: [facility] 06-01-2009 influenza virus vacc ine, unspecified formulation Jin Gilbert MD Work Phone: [facility] 07-24-2008 tetanus toxoid, redu micki diphtheria toxoid, and acellular pertussis vaccine, adsorbed Jin Gilbert MD Work Phone: [facility] Payers Date Payer Category Payer Self-pay [id number] 2022 Medicaid HMO [employer] [facility] [id number] 2022 Medicaid [id number] 2021 Unknown [id number] 2021 Unknown 2019 Medicaid [employer] [facility] [id number] 2019-Present [phone] [address] [place] [address] Medicaid [id number] 2019 Medicaid [id number] 2016 Unknown [employer] [facility] MEDICAID xxxxxxxxxxx 2016-Present [phone] CLAIMS DEPARTMENT [address] [place] [address] xxxxxxxxxxx [id number] 2016 Unknown [id number] 1966 Unknown [id number] 1966 Unknown [id number] 1966 Unknown [id number] 1966 Unknown [id number] Unknown [id number] Unknown [id number] Unknown [id number] Unknown [id number] Social History Date Type Detail Facility Start: 06-12-2019 End: 09-07-2022 Tobacco smoking status NHIS Former smoker [place] End: 06-23-1980 History of tobacco use Current smoker [place] End: 06-23-1980 History of tobacco use Cigarette Smoker [place] Start: 06-12-2019 End: 10-31-2024 Cigarettes smoked current (pack per day) - Reported [facility] Start: 06-12-2019 End: 03-29-2024 Alcohol intake Ex-drinker (finding) [facility] Start: 1965 Sex Assigned At Not on file [place] Start: 07-19-2012 End: 06-12-2019 Never smoked tobacco (finding) [facility] Sex Assigned At [facility] Start: 10-05-2021 [facility] Work Phone: Start: 1965 Sex Assigned At Male [facility] Start: 07-19-2012 End: 06-12-2019 Tobacco use and exposure Smokeless tobacco non-user [employer] Work Phone: Start: 12-30-2021 End: 02-14-2022 Exposure to SARS-CoV-2 (event) Not sure [employer] Work Phone: Start: 02-14-2022 End: 01-30-2025 Alcohol intake Current non-drinker of alcohol (finding) [facility] Start: 01-09-2022 End: 10-31-2024 Tobacco use panel [facility] How often do you nee d to have someone help you when you read instructions, pamphlets, or other written material from your doctor or pharmacy [SILS] Never [facility] Has the [place], or [employer] threatened to shut off services in your home in past 12Mo Yes [facility] Within the last year , have you been afraid of your partner or ex-partner? No [facility] Are you now , , , , never or living with a partner? [facility] How often to you hav e a drink containing alcohol? Monthly or less [facility] How many standard drinks containing alcohol do you have on a typical day? 1 or 2 [facility] How often do you hav e 6 or more drinks on 1 occasion? Never [facility] How hard is it for y ou to pay for the very basics like food, housing, medical care, and heating Somewhat hard [facility] Do you feel stress - tense, restless, nervous, or anxious, or unable to sleep at night because your mind is troubled all the time - these days [OSQ] To some extent [employer] [facility] (I/We) worried [place] er (my/our) food would run out before (I/we) got money to buy more. Sometimes true [employer] [facility] Start: 11-04-2013 End: 02-21-2022 Sex Male (finding) [facility] Medical Equipment Procedure Code Equipment Code Equipment Origin al Text Equipment Identifier Dates Use as instructed. [id number] Start: 03-13-2013 Comment on above: Use as instructed. Functional Status Date Assessment Result Facility 09-29-2024 Are you deaf, or do you have serious difficulty hearing No 09/29/2024 12:26 PM EDT Amanda Barton LPN No [facility] 09-29-2024 Are you blind, or do you have serious difficulty seeing, even when wearing glasses No 09/29/2024 12:26 PM EDT Amanda Barton LPN No [facility] 09-29-2024 Do you have serious difficulty walking or climbing stairs Yes 09/29/2024 12:26 PM EDT Amanda Barton LPN Yes [facility] 09-29-2024 Do you have difficul ty dressing or bathing Yes 09/29/2024 12:26 PM EDT Amanda Barton LPN Yes [facility] 09-29-2024 Because of a physica l, mental, or emotional condition, do you have difficulty doing errands alone such as visiting a physician's office or shopping Yes 09/29/2024 12:26 PM EDT Amanda Barton LPN Yes [facility] 09-22-2024 Functional Status Repositioned back [facility] 09-22-2024 Functional Status [facility] 09-22-2024 Functional Status [facility] Mental Status Date Assessment Result Facility 09-29-2024 Because of a physica l, mental, or emotional condition, do you have serious difficulty concentrating, remembering, or making decisions Yes 09/29/2024 12:26 PM EDT Amanda Barton LPN Yes [facility] 09-22-2024 Mental Status Orientation Not oriented to time, Not oriented to situation, Follows simple commands [facility] Clinical Notes 09-23-2021 to 02-07-2025 Telephone Encounter - Malinda Downs - 02/07/2025 3:21 PM EDTTelephone Encounter - Malinda Downs - 02/07/2025 3:21 PM EDTPatient InstructionsDodie Irvin APRN.CNP - 01/30/2025 1:05 PM EDT Note Date & Type Note Facility 02-07-2025 Telephone encounter Note Received outside medical records (bloodwork) from [facility] test and scanned into patient chart. [facility] 02-07-2025 Miscellaneous Notes Received outside medical records (bloodwork) from [facility] test and scanned into patient chart. documented in this encounter [facility] 01-30-2025 Instructions Dodie Irvin APRN.CNP - 01/30/2025 [...] in 6 months documented in this encounter [facility] 01-30-2025 History of Presen t illness Narrative [facility] Established Visit Consultation is requested by: Andrew Galarza [facility] Frank Saravia [facility] [id number] PCP: Adriana Shaw MD (DrC) [address] [place] [phone] CEREBROVASCULAR HISTORY Evangelista Borrego JR is a 59 year old male. Stroke Event Information [facility] 09/22/24-09/29/24 Mr. Evangleista Borrego is a 59 yo male with [...] but demonstrates encephalomalacia in left paramedian occipital lobe". 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 Unclear chronicity of the occlusion. Patient was determined not to be a candidate for TNK given time from [facility]. Recommendation was made to give ASA load and keep patient flat. Patient transferred to [facility] SDU for further observation and workup. Office [...] PROCEDURE ANKLE & FOOT COLONOSCOPY Dr. Omer [facility] NEUROPLASTY &/TRANSPOS MEDIAN NRV CARPAL TUNNE [...] movements symmetric on the left, CHRIS RUE. [id number], [id number] without dysmetria on the left, CHRIS RLE. [...] encephalomalacia CTA head and neck 09/22/2024: Left OFFICE SERVICES ASSISTANT P1 occlusion with distal recanalization MRI brain [...] with Zio. Vessel imaging significant for left OFFICE SERVICES ASSISTANT P1 occlusion. History of Epilepsy, following with [...] which included preparing to see the patient, cxeb-uh-kual patient care, completing clinical documentation, obtaining and/or reviewing separately obtained history, performing a medically appropriate examination, counseling and educating the patient/family/caregiver, ordering medications, tests, or procedures, communicating with other HCPs (not separately reported), independently interpreting results (not separately reported), and communicating results to the patient/family/caregiver ASMITA Irvin APRN.TUCKER CC Andrew Saravia [facility] [id number] Adriana Shaw MD ([place]) [address] [place] [id number] documented in this encounter [facility] 01-30-2025 Note HNO ID: [id number] Author: DODIE IRVIN APRN.CNP Service: ? Author Type: Nurse Practitioner Type: Progress Notes Filed: 01/30/2025 13:40 Note Text: [facility] Established Visit Consultation is requested by: Andrew Saravia [facility] [id number] PCP: Adriana Shaw MD ([place]) [address] [place] [address] CEREBROVASCULAR HISTORY Evangelista Borrego JR is a [...] on AC. CTH with NAP, but demonstrates "encephalomalacia in left paramedian occipital lobe". 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 Unclear chronicity of the occlusion. Patient was determined not to be a candidate for TNK given time from [facility]. Recommendation was made to give ASA load and keep patient flat. Patient transferred to [facility] SDU for further observation and workup. Office [...] ARTHROSCOPIC PROCEDURE ANKLE AND FOOT [facility]OSCOPY [facility] AND/TRANSPOS MEDIAN NRV CARPAL TUNNE Carpal [...] venous insufficiency Blood-Glucose (more content not included)... [facility] 01-17-2025 Emergency department Note Jorje Charles here to take pt back to SNF. Osmani (medic) gave handoff to EMS crew. All questions answered and paperwork provided. [facility] called and notified of pt returning. Pt clean and dry returning to facility. [facility] 01-17-2025 Emergency department Note Jorje Charles here to take pt back to SNF. Osmani (medic) gave handoff to EMS crew. All questions answered and paperwork provided. [facility] called and notified of pt returning. Pt clean and dry returning to facility. Updated ETA 2130 EMERGENCY DEPARTMENT ENCOUNTER Pt Name: Evangelista Borrego Birthdate 1965 Date of evaluation: 01/17/2025 ED Provider: Devan Kenny DO CHIEF COMPLAINT Chief Complaint Patient presents with Fall Complaint of fall this morning at [facility]. Patient fell in the bathroom hitting head. [...] to the emergency department for fall at intermediate facility. History of prior CVA, alert and [...] is mild. Fall was apparently witnessed at intermediate facility Nursing Notes were reviewed. REVIEW OF SYSTEMS 14 systems reviewed and otherwise acutely negative except as in the [facility]. PAST MEDICAL HISTORY Medical History[1] SURGICAL HISTORY [...] his right radial styloid and mid hand, photogrammetric engineer strength sensation is intact throughout SKIN: no [...] with a chief complaint of fall at intermediate facility, reportedly takes a daily baby aspirin, [...] sepsis, or septic shock (If yes use ".sepsiscoremeasure"): Final Impression: 1. Fall, initial encounter 2. Strain of right wrist, initial encounter Disposition/Plan dc PATIENT REFERRED TO: Nena Pardo, DO [address] [address] Schedule an appointment as soon as possible [...] the dictating provider for clarification.) Devan Kenny, DO (electronically signed) Emergency Medicine Provider [1] [...] Resource Strain: Low Risk (10/02/2024) Received from [facility] Overall Financial Resource Strain (CARDIA) Difficulty of Paying Living Expenses: Not hard at all Food Insecurity: No Food Insecurity (10/02/2024) Received from [facility] Vital Sign Worried About Running Out of Food in the Last Year: Never true Ran Out of Food in the Last Year: Never true Recent Concern: Food Insecurity - Food Insecurity Present (09/23/2024) Received from [facility] Hunger Vital Sign Worried About Running Out of Food in the Last Year: Sometimes true Ran Out of Food in the Last Year: Sometimes true Transportation Needs: No Transportation Needs (10/22/2024) Received from [facility] Transportation Source Has lack of transportation kept [...] No Stress Concern Present (10/23/2024) Received from [facility] Occupational Health - Occupational Stress Questionnaire Feeling of Stress : Not at all Social Connections: Moderately Isolated (10/02/2024) [facility] Social Connection and Isolation Panel [NHANES] Frequency of Communication with Friends and Family: More than three times a week Frequency of Social Gatherings with Friends and Family: More than three times a week Attends Rastafarian Services: Never Active Member of Clubs or Organizations: No Attends Club or Organization Meetings: Never Marital Status: Intimate Partner Violence: Patient Unable To Answer (09/29/2024) Received from [facility] Domestic Abuse Assessment Do you feel safe in your relationships at home?: Unable to assess Physical Abuse: Unable to assess Verbal Abuse: Unable to assess Housing Stability: Low Risk (10/02/2024) Received from [facility] Housing Stability Vital Sign Unable to Pay for Housing in the Last Year: No Number of Times Moved in the Last Year: 0 Homeless in the Last Year: No Recent Concern: Housing Stability - High Risk (09/23/2024) Received from [facility] Housing Stability Vital Sign Unable to Pay for Housing in the Last Year: Yes Number of Times Moved in the Last Year: 0 Homeless in the Last Year: No Devan Kenny DO 01/17/252005 documented in this encounter [facility] 01-17-2025 Emergency department Note Updated ETA 2129 [facility] 01-17-2025 Physician Emergency department Note EMERGENCY DEPARTMENT ENCOUNTER Pt Name: Evangelista Borrego Birthdate 1965 Date of evaluation: 01/17/2025 ED Provider: Devan Kenny DO CHIEF COMPLAINT Chief Complaint Patient presents with Fall Complaint of fall this morning at [facility]. Patient fell in the bathroom hitting head. [...] to the emergency department for fall at intermediate facility. History of prior CVA, alert and [...] is mild. Fall was apparently witnessed at intermediate facility Nursing Notes were reviewed. REVIEW OF SYSTEMS 14 systems reviewed and otherwise acutely negative except as in the [facility]. PAST MEDICAL HISTORY Medical History[1] SURGICAL HISTORY [...] complication, without long-term current use of insulin ([facility]) OXcarbazepine (Trileptal) 150 MG tablet TAKE 1 [...] his right radial styloid and mid hand, photogrammetric engineer strength sensation is intact throughout SKIN: no exposed rash DIAGNOSTIC RESULTS Procedures/EKG: EKG was reviewed by myself. Physician EKG interpretation can be found in [facility] RADIOLOGY (Per Emergency Physician): Interpretation per [...] with a chief complaint of fall at intermediate facility, reportedly takes a daily baby aspirin, [...] sepsis, or septic shock (If yes use ".sepsiscoremeasure"): Final Impression: 1. Fall, initial encounter 2. Strain of right wrist, initial encounter Disposition/Plan dc PATIENT REFERRED TO: Nena Pardo DO [address] [place] [address] Schedule an appointment as soon as possible [...] Insecurity: No Food Insecurity (10/02/2024) Received from [facility] Hunger Vital Sign Worried About Running Out of Food in the Last Year: Never true Ran Out of Food in the Last Year: Never true Recent Concern: Food Insecurity - Food Insecurity Present (09/23/2024) Received from [facility] Hunger Vital Sign Worried About Running Out of Food in the Last Year: Sometimes true Ran Out of Food in the Last Year: Sometimes true Transportation Needs: No Transportation Needs (10/22/2024) Received from [facility] Transportation Source Has lack of transportation [...] No Stress Concern Present (10/23/2024) Received from [facility] - Occupational Stress Questionnaire Feeling of Stress : Not at all Social Connections: Moderately Isolated (10/02/2024) Received from [facility] Social Connection and Isolation Panel [NHANES] Frequency of Communication with Friends and Family: More than three times a week Frequency of Social Gatherings with Friends and Family: More than three times a week Attends Rastafarian Services: Never Active Member of Clubs or Organizations: No Attends Club or Organization Meetings: Never Marital Status: Intimate Partner Violence: Patient Unable To Answer (09/29/2024) Received from [facility] Domestic Abuse Assessment Do you feel safe in your relationships at home?: Unable to assess Physical Abuse: Unable to assess Verbal Abuse: Unable to assess Housing Stability: Low Risk (10/02/2024) Received from [facility] Housing Stability Vital Sign Unable to Pay for Housing in the Last Year: No Number of Times Moved in the Last Year: 0 Homeless in the Last Year: No Recent Concern: Housing Stability - High Risk (09/23/2024) Received from [facility] Housing Stability Vital Sign Unable to Pay for Housing in the Last Year: Yes Number of Times Moved in the Last Year: 0 Homeless in the Last Year: No Devan Kenny DO 01/17/252005 [facility] 12-02-2024 Telephone encounter Note Call to [facility] [employer], wants to know if pt is supposed to still be on Lovenox. States that the TOPOGRAPHICAL ENGINEER there is uncomfortable d/c-ing it without CV provider's input. Please call back [phone] Monday. Seble Myers RN December 02, 2024 2:50 PM [facility] 12-02-2024 Miscellaneous Notes Call to [facility], wants to know if pt is supposed to still be on Lovenox. States that the TOPOGRAPHICAL ENGINEER there is uncomfortable d/c-ing it without CV [...] JR, 1965). Yes Number to return call [phone] Reason for Call: Patient Question/Update: Nurse from where patient is staying calling with a few questions about Lovenox medication. Please return call at [phone] Thank you calling [facility] [place]. You will receive a return call within 48 hours ( or 2 business days if close to the weekend). If you feel that this is an urgent issue and needs immediate attention, it is recommended that you contact your primary care provider office or proceed to your nearest Urgent Care Center of Emergency Room ED for evaluation/treatment. documented in this encounter [facility] 12-02-2024 Telephone encounter Note CV PHONE Name of caller : Bita Relationship to patient : Nurse If not self Will need patient permission to release results or disclose health information with called documented in fyi. Patient identified by Name and Date of . ( Evangelista Borrego JR, 1965). Yes Number to return call [phone] Reason for Call: Patient Question/Update: Nurse from where patient is staying calling with a few questions about Lovenox medication. Please return call at [phone] Thank you calling [facility] [place]. You will receive a return call within 48 hours ( or 2 business days if close to the weekend). If you feel that this is an urgent issue and needs immediate attention, it is recommended that you contact your primary care provider office or proceed to your nearest Urgent Care Center of Emergency Room ED for evaluation/treatment. [facility] 11-25-2024 Telephone encounter Note Called [facility] @ [phone] Spoke to staff. Relayed providers message below Staff verbalized good understanding No further questions/concerns at this time. Hailey Don LPN [facility] 11-25-2024 Miscellaneous Notes Called [facility] @ [phone] Spoke to staff. Relayed providers message below Staff verbalized good understanding No further questions/concerns at this time. Hailey Don LPN Please let the facility know that I reviewed the blood sugars. To continue current insulin regimen Blaire Shearer MD documented in this encounter [facility] 11-25-2024 Telephone encounter Note Please let the facility know that I reviewed the blood sugars. To continue current insulin regimen Blaire Shearer MD [facility] Work Phone: 11-25-2024 Instructions Blaire Denney MD - 11/25/2024 8:18 AM EDT We will request the records of blood sugars documented in this encounter [facility] 11-25-2024 Note HNO ID: [id number] Author: BLAIRE DENNEY MD Service: ? Author Type: Physician Type: Progress Notes Filed: 11/25/2024 08:24 Note Text: Endocrinology Initial Diabetes Assessment Evangelista Borrego JR is here for a consultation upon the request of Dr. Dunaway regarding: T2DM Documentation supporting sharing your findings and recommendations via the shared medical record or via the mail. PCP is MD Adriana Awtood MD ([facility]) [address] [place] [id number] Date: November 25, 2024 History of Present Illness Evangelista Borrego JR is a 59 year old male with PMH of T2DM, HTN, HLD, CVA, seizures and CHRYSTAL who presents today for evaluation of T2DM Patient lives in [facility]. Patient is accompanied by vp transportation. She has no clinical information about the [...] PROCEDURE ANKLE AND FOOT COLONOSCOPY Dr. [facility] NEUROPLASTY AND/TRANSPOS MEDIAN NRV CARPAL TUNNE [...] for this v (more content not included)... [facility] 11-25-2024 History of Presen t illness Narrative Endocrinology Initial Diabetes Assessment Evangelista Borrego JR is here for a consultation upon the request of Dr. Dunaway regarding: T2DM Documentation supporting sharing your findings and recommendations via the shared medical record or via the mail. PCP is MD Adriana Atwood MD ([facility]) [address] [place] [id number] Date: November 25, 2024 History of Present Illness Evangelista Borrego JR is a 59 year old male with PMH of T2DM, HTN, HLD, CVA, seizures and CHRYSTAL who presents today for evaluation of T2DM Patient lives in [facility]. Patient is accompanied by vp transportation. She has no clinical information about the [...] ARTHROSCOPIC PROCEDURE ANKLE & [facility] &/TRANSPOS MEDIAN NRV CARPAL TUNNE [...] (H) 4.3 - 5.6 % Final Comment: [place] [employer] guidelines indicate that patients with HgbA1c in the range 5.7-6.4% are at increased risk for development of diabetes, and intervention by lifestyle modification may be beneficial. HgbA1c greater or equal to 6.5% is considered diagnostic of diabetes. 03/13/2013 6.7 (H) 4.0 - 6.0 % Final Comment: [place] [employer] guidelines indicate that patients with HgbA1c in the range 5.7-6.4% are at increased risk for development of diabetes, and intervention by lifestyle modification may be beneficial. HgbA1c greater or equal to 6.5% is considered diagnostic of diabetes. 08/03/2012 6.5 (H) 4.0 - 6.0 % Final Comment: [place] guidelines indicate that patients with HgbA1c in the range 5.7-6.4% are at increased risk for development of diabetes, and intervention by lifestyle modification may be beneficial. HgbA1c greater or equal to 6.5% is considered diagnostic of diabetes. 01/30/2012 7.1 (H) 4.0 - 6.0 % Final Comment: [place] guidelines indicate that patients with HgbA1c in the range 5.7-6.4% are at increased risk for development of diabetes, and intervention by lifestyle modification may be beneficial. HgbA1c greater or equal to 6.5% is considered diagnostic of diabetes. HBA1C, [place] Date Value Ref Range Status 08/11/2011 7.4 [...] with clinical nephropathy. (Am J Kidney Disease 1994, 25:107) 05/26/2009 9 0 - 30 mg/g [...] We have requested the blood sugars from [facility] and will reach back to the patient with medication adjustments Blood work fasting - ALBUMIN/CREATININE RATIO, URINE - THYROID STIMULATING HORMONE - COMPREHENSIVE METABOLIC PANEL - LIPID PANEL, FASTING Blaire Shearer MD documented in this encounter [facility] 10-31-2024 Instructions Dodie Irvin APRN.CNP - 10/31/2024 2:10 PM EDT Continue Aspirin daily for secondary stroke prevention. Continue Atorvastatin for secondary stroke prevention and LDL goal below 70. Continue monitoring blood pressure for goal below 130/80. Continue monitoring blood sugar for optimal A1c below 7.0. Continue working with therapy for optimal stroke rehabilitation. Follow up in 3 months to check in on therapy documented in this encounter [facility] 10-31-2024 History of Presen t illness Narrative [facility] Established Visit Consultation is requested by: Andrew Galarza [address] [facility] [id number] PCP: Adriana Shaw MD ([facility]) [address] [place] [address] CEREBROVASCULAR HISTORY Evangelista Borrego JR is a 59 year old male. Stroke Event Information F 09/22/24-09/29/24 Mr. Evangelista Borrego is a 59 [...] but demonstrates encephalomalacia in left paramedian occipital lobe". 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 Unclear chronicity of the occlusion. Patient was determined not to be a candidate for TNK given time from [facility]. Recommendation was made to give ASA load and keep patient flat. Patient transferred to [facility] SDU for further observation and workup. Office [...] ARTHROSCOPIC PROCEDURE ANKLE & [facility]LASTY &/TRANSPOS MEDIAN NRV CARPAL TUNNE Carpal [...] movements symmetric on the left, CHRIS RUE. Qjyjib-cq-jnly, mprb-eg-ylyq without dysmetria on the left, CHRIS RLE. [...] encephalomalacia CTA head and neck 09/22/2024: Left OFFICE SERVICES ASSISTANT P1 occlusion with distal recanalization MRI brain [...] with Zio. Vessel imaging significant for left OFFICE SERVICES ASSISTANT P1 occlusion. History of Epilepsy, following with [...] which included preparing to see the patient, [id number] patient care, completing clinical documentation, obtaining and/or reviewing separately obtained history, performing a medically appropriate examination, counseling and educating the patient/family/caregiver, ordering medications, tests, or procedures, communicating with other HCPs (not separately reported), independently interpreting results (not separately reported), and communicating results to the patient/family/caregiver SIGNATURE SUDHA Navarrete [address] [facility] [address] Adriana Shaw MD ([facility]) [address] [place] [address] documented in this encounter [facility] 10-31-2024 Note HNO ID: [id number] Author: DODIE IRVIN APRN.CNP Service: ? Author Type: Nurse Practitioner Type: Progress Notes Filed: 10/31/2024 14:18 Note Text: [facility] Established Visit Consultation is requested by: Andrew Galarza [address] [facility] [address] PCP: Adriana Shaw MD ([facility]) [address] [place] [address] CEREBROVASCULAR HISTORY Evangelista Borrego JR is a 59 year old male. Stroke Event Information [facility] 09/22/24-09/29/24 Mr. Evangelista Borrego is a [...] on AC. CTH with NAP, but demonstrates "encephalomalacia in left paramedian occipital lobe". 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 Unclear chronicity of the occlusion. Patient was determined not to be a candidate for TNK given time from [facility]KW. Recommendation was made to give ASA load and keep patient flat. Patient transferred to [facility] SDU for further observation and workup. Office [...] PROCEDURE ANKLE AND FOOT COLONOSCOPY Dr. [facility] NEUROPLASTY AND/TRANSPOS MEDIAN NRV CARPAL TUNNE [...] Extremities: No edema (more content not included)... [facility] 10-28-2024 Telephone encounter Note S: Nurse spoke with [facility] nurse regarding fall B: Onset of symptoms/concern tonight A: Nay-Nurse from [facility] for a witnessed fall out of his [...] Protocols used: Information Only Call - No [id number] [facility] 10-28-2024 Miscellaneous Notes S: Nurse spoke with [facility] nurse regarding fall B: Onset of symptoms/concern tonight A: Nay-Nurse from [facility] for a witnessed fall out of his [...] Protocols used: Information Only Call - No [id number] documented in this encounter [facility] 10-02-2024 Telephone encounter Note Recent Visits Date Type Provider Dept 05/02/24 Office Visit Nena Pardo DO [facility] Jorge L 03/29/24 Office Visit Nena Pardo DO [facility] Jorge L Showing recent visits within past 365 days and meeting all other requirements Future Appointments Date Type Provider Dept 10/07/24 Appointment Nena Pardo DO [facility] Showing future appointments within next 90 days [...] 5.0 (H) 03/29/2024 NONHDLCHOLES 135 (H) 03/29/2024 [facility] 10-02-2024 Miscellaneous Notes Recent Visits Date Type Provider Dept 05/02/24 Office Visit Nena Pardo DO [facility] 03/29/24 Office Visit Nena Pardo DO [facility] Showing recent visits within past 365 days and meeting all other requirements Future Appointments Date Type Provider Dept 10/07/24 Appointment Nena Pardo DO [facility] Showing future appointments within next 90 days [...] 135 (H) 03/29/2024 documented in this encounter [facility] 09-29-2024 Note HNO ID: [id number] Author: VIVIEN MCARTHUR RN Service: Care Management [...] confirmation that patient has bed available at [facility]. Admission Date: 09/22/2024 LOS: 7 days Discharge Arrangement Discharge Arrangement: Acute Rehabilitation Facility Services Arranged Medical Services: Other: See Comment (Acute Rehabilitation) Provider Name: Adriana Shaw - General, Family Medicine Since 08/04/2016 Caregiver Assessment Caregiver is ready, willing and able to meet the patient's needs as recommended by the inter-professional team: Yes Name of Caregiver: [facility] [address] [place] [address] Transportation Arrangements Transportation Arrangements: Ambulance Transportation Agency and Phone #:: [facility] [phone] Date of Trip: 09/29/24 Time of Trip: 1400 Type of Service: BLS Non-emergency Is Patient Medicaid Pending?: No Was transportation financial coverage discussed with family?: Patient Trim Carpenter Location: Main [place] Destination: [facility] [address] [facility] [address] Financial Care Management Responsibility: None Handoff Communication: Handoff to: Primary Care Physician, Other Caregiver Primary Care Physician Name/Phone: Adriana Shaw PCP - General, Family Medicine Since 08/04/2016 Other Caregiver Name/Phone: [facility], [place] [address] Additional Information: Transportation is set with MMT at 2pm Trip # [id number] and facility is aware. RN on Floor is provided with RN Report number, discharge packet is updated to include DC summary and AVS form. Discharge Information Row Name Admission (Current) from 09/22/2024 in HOSP MAIN H063 Rehab Facility Agency [facility], [place] [facility] [address] [place] [address] SIGNATURE: Vivien Mcarthur RN PATIENT NAME: Evangelista Borrego JR DATE: September 29, 2024 TIME: 11:34 AM [facility] 09-29-2024 Note HNO ID: [id number] Author: SAADIA MAYES APRN.DIESEL POWER SHOVEL OPERATOR Service: Neurology Stroke Author Type: Nurse Practitioner [...] (Oral) Resp 13 Ht 170.2 cm (5' 7") Wt 125.7 kg (277 lb 1.9 oz) [...] Score: 19 (09/29/24 0951 : Saadia Mayes, ONIEL.DIESEL POWER SHOVEL OPERATOR) 19 MENTAL STATUS: Alert, aphasic, patient was able to tell me his name but not place or time. He shook his head "no" when I asked if he knew was [...] encephalomalacia CTA head and neck 09/22/2024: Left OFFICE SERVICES ASSISTANT P1 occlusion with distal recanalization MRI brain [...] is also e (more content not included)... [facility] 09-28-2024 Note HNO ID: [id number] Author: OSMANI TORRES MD Service: Neurology Adult [...] brain injury he has been connected to [facility] which has shown no seizures. Otherwise, generalized [...] discussed with Dr Jozef Vergara (epilepsy staff alumni relations manager) Osmani Torres MD Epilepsy fellow [facility] 09-28-2024 Note HNO ID: [id number] Author: NANI PERKINS RT(R) Service: Radiology Author [...] PATIENT PRESENTS WITH AN IMPLANTABLE OR ATTACHED BREAKFAST COOK: No RADIOLOGY DEPARTMENT: CT; Exam(s) Completed: Brain PERIPHERAL IV DATA: Not applicable SIGNED BY: RT Karishma(R)(CT) September 28, 2024 3:07 PM [facility] 09-28-2024 Note HNO ID: [id number] Author: ZAN KENNEDY RN Service: Care Management [...] to 09/29 @ 2 PM, trip # [id number]. D/C packet located by green chart. CM will continue to follow. Please see Treatment Team for Care Management Weekend/Holiday coverage. SIGNATURE: Zan Kennedy RN PATIENT NAME: Evangelista Borrego JR DATE: September 28, 2024 TIME: 9:20 AM [facility] 09-28-2024 Note HNO ID: [id number] Author: SAADIA MAYES APRN.TUCKER Service: Neurology Stroke Author Type: Nurse Practitioner [...] (Oral) Resp 20 Ht 170.2 cm (5' 7") Wt 123.2 kg (271 lb 9.7 oz) [...] Score: 19 (09/28/24 0936 : Saadia Mayes APRN.DIESEL POWER SHOVEL OPERATOR) 19 MENTAL STATUS: Alert, aphasic, patient was able to tell me his name but not place or time. He shook his head "no" when I asked if he knew was [...] encephalomalacia CTA head and neck 09/22/2024: Left OFFICE SERVICES ASSISTANT P1 occlusion with distal recanalization MRI brain [...] is borderline di (more content not included)... [facility] 09-27-2024 Note HNO ID: [id number] Author: HARSH ORTEZ, RN Service: Care Management Author Type: Registered Nurse Type: Care Mgt Progress Note Filed: 09/27/2024 14:49 Note Text: CARE MANAGEMENT WEEKEND PLANNING NOTE DISCHARGE OR POSSIBLE DISCHARGE Date/Time: Thursday 09/28 at 2pm Disposition: Rehab Facility - Precert Obtained: Yes Transport: Mode of Transportation: Ambulance Transportation Agency and Phone #: [facility] [phone] . Date of Trip: 09/28 Type of Service: BLS Non-emergency Is Patient Medicaid Pending: No Discussion of financial coverage occurred with N/A . Trim Carpenter Location: Main [place] Destination: [facility] Financial Care Management Responsibility: None Estimated Charge: N/A Approving Shorts Sifter: N/A Other Concerns: N/A Please see Treatment Team for Care Management Weekend/Holiday coverage. Precert approved for [facility]. No beds at facility today. BLS transport rescheduled for 4pm tomorrow with MMT - Trip# [id number]. CIGARETTE ROLLER"s tasked to complete a DC packet for patient tomorrow. Spouse updated. CM will follow. SIGNATURE: Harsh Ortez RN PATIENT NAME: Evangelista Borrego JR DATE: September 27, 2024 TIME: 2:42 PM PAGER/CONTACT #: [phone] [facility] 09-27-2024 Note HNO ID: [id number] Author: ANDREW GALARZA PA-C Service: Neurology Stroke Author Type: Physician Button Station Worker Type: Progress Notes Filed: 09/27/2024 14:42 Note [...] for DM control DC to [facility], have insurance precert, no bed today. DC likely tomorrow afternoon MEDICATIONS: Current medications and allergies reviewed. Recommended/planned medication changes discussed in detail in the A/P section below. Objective PHYSICAL EXAM Vital Signs: BP 151/66 Pulse (!) 53 Temp 37.1 ?C (98.8 ?F) Resp 17 Ht 170.2 cm (5' 7") Wt 123.2 kg (271 lb 9.7 oz) [...] Daily NIHSS Score: 19 (09/27/24 0951 : Andrew Galarza PA-C) 19 MENTAL STATUS: Alert, aphasic, mostly [...] encephalomalacia CTA head and neck 09/22/2024: Left OFFICE SERVICES ASSISTANT P1 occlusion with distal recanalization MRI brain [...] was recorded f (more content not included)... [facility] 09-26-2024 Note HNO ID: [id number] Author: HARSH ORTEZ, RN Service: Care Management Author Type: Registered Nurse Type: Care Mgt Progress Note Filed: 09/26/2024 17:18 Note Text: CARE MANAGEMENT PROGRESS NOTE SERVICE DATE: 09/26/2024 SERVICE TIME: 1:48 PM LOS: 4 days CM Update Skilled for [facility]. [facility] out of network with patient's insurance. Called to discuss other options with patient's spouse, and she requested a referral be sent to [facility]. Referral sent, await response. Patient is medically ready for discharge. BLS transport placed in Will Call thru Mon 09/30 - Trip# [phone] Will need accepting facility, precert and transport arranged. CM will follow. Update 4:25pm: Patient has been accepted by [facility] and precert will be submitted. [facility] tasked. Update 5:15: BLS transport scheduled for 4pm tomorrow with MMT - Trip# [id number]. CIGARETTE ROLLER"s tasked to complete a DC packet for patient tomorrow. Spouse updated. SIGNATURE: Harsh Ortez RN PATIENT NAME: Evangelista Borrego JR DATE: September 26, 2024 TIME: 1:47 PM [facility] 09-26-2024 Note HNO ID: [id number] Author: ANDREW GALARZA PA-C Service: Neurology Stroke Author Type: Physician Button Station Worker Type: Progress Notes Filed: 09/26/2024 10:15 Note Text: Documentation Query 09/23/24 MRI Brain ?True restricted diffusion at anterior aspect of left thalamus AND anterior aspect of posterior limb of left internal capsule with T2 hyperintensity AND local mass effect with indentation on third ventricle without obstructive hydrocephalus or abnormal susceptibility compatible with nonhemorrhagic acute infarct in OFFICE SERVICES ASSISTANT perforating vessel distribution (correlate with history AND CTA results). ? 09/24/24 PMANDR ?presented with RHP and dysarthria to [facility] ED on 09/22. LKW 9PM 09/21. He was found to have a left P1 occlusion of unknown chronicity and encephalomalacia in left paramedian occipital lobe on imaging. Transferred to [facility] SDU for further workup and observation.? Please clarify diagnosis associated with the clinical indicators Cerebral edema - not clinically significant Andrew Galarza PA-C September 26, 2024 10:15 AM Pager [phone] [facility] 09-26-2024 Note HNO ID: [id number] Author: ANDREW GALARZA PA-C Service: Neurology Stroke Author Type: Physician Button Station Worker Type: Progress Notes Filed: 09/26/2024 10:15 Note [...] for 4 pm pending new precert to [facility]. MEDICATIONS: Current medications and allergies reviewed. Recommended/planned medication changes discussed in detail in the A/P section below. Objective PHYSICAL EXAM Vital Signs: BP 128/60 Pulse 72 Temp 37.8 ?C (100 ?F) (Axillary) Resp 23 Ht 170.2 cm (5' 7") Wt 123.2 kg (271 lb 9.7 oz) [...] Daily NIHSS Score: 18 (09/26/24 0942 : Andrew Galarza PA-C) 18 MENTAL STATUS: Alert, aphasic, mostly [...] encephalomalacia CTA head and neck 09/22/2024: Left OFFICE SERVICES ASSISTANT P1 occlusion with distal recanalization MRI brain [...] monitoring 09/24/2024: Impress (more content not included)... [facility] 09-25-2024 Note HNO ID: [id number] Author: HARSH ORTEZ, RN Service: Care Management Author Type: Registered Nurse Type: Care Mgt Progress Note Filed: 09/25/2024 14:35 Note Text: CARE MANAGEMENT PROGRESS NOTE SERVICE DATE: 09/25/2024 SERVICE TIME: 1:45 PM LOS: 3 days CM Update Skilled for AR but spouse chose [facility]. Precert was submitted this morning. [facility] tasked to complete 7000. Attestation progress note is signed and anticipated discharge order placed. [facility]'s tasked to arranged BLS transport for tomorrow afternoon and to complete a DC packet. CM will follow. Update 2pm: Notified by stroke team that they discussed with spouse that patient would benefit from [facility] and she is now in agreement. Will call spouse for AR FOC. Update 2:20pm: MMT TRANSPORT SCHEDULED FOR 09/26/24 AT 4:00PM, TRIP# [id number]. *Will need to be updated to new [place] location once there is an accepting facility. Update [facility]:35pm: [facility], and to send a referral to [facility]. SIGNATURE: Harsh Ortez RN PATIENT NAME: Evangelista Borrego JR DATE: September 25, 2024 TIME: 1:44 PM [facility] 09-25-2024 Note HNO ID: [id number] Author: FABIANA DUNAWAY MD, PhD Service: Neurology Stroke Author Type: Physician Type: Progress Notes Filed: 09/26/2024 05:05 Note Text: NEURO STROKE PROGRESS NOTE SERVICE DATE: 09/25/2024 SERVICE TIME: 7:15 AM Subjective Patient Summary: Mr. Evangelista Borrego is a 59 yo male with a PMH significant for T2DM, LYLE, HLD, seizures on phenytoin who presented with RHP and dysarthria to [facility] ED on 09/22. LKW 9PM 09/21. He [...] (Oral) Resp 19 Ht 170.2 cm (5' 7") Wt 123.2 kg (271 lb 9.7 oz) [...] in self-care ab (more content not included)... [facility] 09-24-2024 Note HNO ID: [id number] Author: CLAUDE KOVACS DO Service: Care Management [...] 2024 TIME: 3:59 PM Claude Kovacs DO [facility] 09-24-2024 Note HNO ID: [id number] Author: HARSH ORTEZ, RN Service: Care Management Author Type: Registered Nurse Type: Care Mgt Progress Note Filed: 09/24/2024 14:36 Note Text: CARE MANAGEMENT PROGRESS NOTE SERVICE DATE: 09/24/2024 SERVICE TIME: 2:31 PM LOS: 2 days CM Update Skilled for AR. Called and spoke with patient's Spouse who requested a referral be sent to [facility]. Explained the difference in LOC between SNF and AR. Spouse verbalized understanding and wishes to proceed with [facility] referral[facility]. Await response. Anticipate medically ready for discharge tomorrow. Will need: accepting facility, precert and transport arranged. Oxygen 2L NC. Soft and Bite-Sized with [place] Thick/[place] Thick liquids. CM will follow. SIGNATURE: Harsh Ortez RN PATIENT NAME: Evangelista Borrego JR DATE: September 24, 2024 TIME: 2:31 PM [facility] 09-24-2024 Note HNO ID: [id number] Author: FABIANA DUNAWAY MD, PhD Service: Neurology Stroke Author Type: Physician Type: Progress Notes Filed: 09/25/2024 05:50 Note Text: NEURO STROKE PROGRESS NOTE SERVICE DATE: 09/24/2024 SERVICE TIME: 7:15 AM Subjective Patient Summary: Mr. Evangelista Borrego is a 59 yo male with a PMH significant for T2DM, LYLE, HLD, seizures on phenytoin who presented with RHP and dysarthria to [place] ED on 09/22. LKW 9PM 09/21. He was found to have a left P1 occlusion of unknown chronicity and encephalomalacia in left paramedian occipital lobe on imaging. INTERVAL HISTORY: Overnight events: worsening of R sided weakness and aphasia and dysarthria last evening, BEM negative, MRI as below Endocrinology consulted, recs placed SUPERVISOR DIALS: no thin liquids PT/OT rec AR, PMR [...] (Oral) Resp 19 Ht 170.2 cm (5' 7") Wt 128.5 kg (283 lb 4.7 oz) [...] risk for falls (more content not included)... [facility] 09-23-2024 Note HNO ID: [id number] Author: HARSH ORTEZ RN Service: Care Management [...] Relation: Son Admission Status: Inpatient Insurance Provider: [employer] Discharge Planning requested by: Per Department Practice Potential Transition Plans Rehab Facility Advance Directives Current Advance Directive: None Hairpiece Stylist Attempted to Assist with AD Completion: No Unable to Assist Due To:: Other: See Comment (Per bedside RN patient talking in word salad") Action: Other: See Comment (Unable to get [...] Patient Goal(s): Be able to go home [place] Explained: [place] Given: Yes Reason Not Given: [...] first level. 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 No prior DME, home oxygen or CPAP use. Patient is currently unemployed (trying to get disability), manages his own medications and does not drive d/t history of epilepsy. Son provides transportation. PT has skilled for AR. OT/PMANDR pending. Discussed with Spouse, and a facility list was sent to her via text at: [phone]. Await choices. Anticipate medically ready for discharge tomorrow. Will need: accepting facility, precert and transport arranged. CM will follow. SIGNATURE: Harsh Ortez RN PATIENT NAME: Evangelista Borrego JR DATE: September 23, 2024 TIME: 4:25 PM [facility] 09-23-2024 Note HNO ID: [id number] Author: JB STAPLES ? Service: Pharmacy Author Type: Rate Clerk Passenger Type: Plan of Care Filed: 09/23/2024 15:36 Note Text: Insurance investigation completed Patient has active prescription insurance: Yes - Patient's insurance is in-network with [facility] Insurance loaded into [place]: Yes Test claim was completed to verify insurance is active: Successful Any questions, please reach out to your medication print production coordinator. [facility] 09-23-2024 Note HNO ID: [id number] Author: NANI MCDANIEL RN Service: Care Management Author Type: Registered Nurse Type: Care Mgt Progress Note Filed: 09/23/2024 12:39 Note Text: CARE MANAGEMENT PROGRESS NOTE SERVICE DATE: 09/23/2024 SERVICE TIME: 1236 LOS: 1 day Needs Prior to Discharge: To Be Determined, OT/PT Evaluation, Patient/Family Current Advance Directive: None Hairpiece Stylist Attempted to Assist with AD Completion: Yes Action: Other: See Comment (Unable to get in contact with pt..) Caregiver is ready, willing and able to meet the patient's needs as recommended by the inter-professional team: Other: See Comment (TBD) [place] Given: No Reason Not Given: Unable to complete with this assessment - revisit Transportation Arrangements: To Be Determined This CM attempted to complete initial assessment. A call was placed to pt.'s Spouse Arelis ). Call not answered. CM unable to leave a voicemail as "service is restricted or not available." Assigned CM Nicolás Ortez made aware of the above. 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 Medications CHANGED on OIL SEAL ASSEMBLER medication list gabapentin (NEURONTIN) 600 mg tablet [...] 1 CAPSULE EVERY EVENING Medications REMOVED from OIL SEAL ASSEMBLER medication list cyclobenzaprine (FLEXERIL) 10 mg tablet [...] taking any medications to which they report "no", however patient has recent dispenses for medication and an attempt was made to call to confirm medication list. Based on chart review of office visits, medication list appears consistent. Per EFRAIN Dunn, "She called earlier for an update and I asked about his medications she said "As far as I know he takes them" Unfortunately I don't have any other numbers for anyone - if they call again I will take down the number, pass it along AND update the info in his chart " PDMP report: Gabapentin - Last filled gabapentin 300mg #90 x 30 days on 08/27/2024 per PDMP report, consistetly filled since 03/29/2024 - "take 1 capsule by mouth three times a day" Dispense history report: Atorvastatin - Last filled atorvastatin 20mg #60 x 60 days on 07/30/2024 - "take 1 tablet by mouth every day" Meloxicam - Last filled meloxicam 15mg #30 x 30 days on 06/25/2024 - "TAKE 1 TABLET (15 MG) BY MOUTH NEEDED FOR MILD PAIN (1-3)" Metformin - Last filled metformin ER 750mg #90 x 90 days on 06/27/2024 - "TAKE 1 TABLET BY MOUTH EVERY DAY WITH AN EVENING MEAL" Oxcarbazepine - Last filled oxcarbazepine 150mg #180 x 90 days on 07/30/2024 - take 1 tablet by mouth twice a day" Phenytoin - Last filled phenytoin sodium ER 100mg #450 x 90 days on 07/31/2024 - TAKE 2 CAPSULES BY MOUTH EVERY MORNING AND 2 CAPSULES DAILY WITH LUNCH AND 1 CAPSULE EVERY EVENING" The below information represents the best possible medication history: Yes Medication history completed by: Pharmacist: Lashay Tse RPh Source of history: Patient: Reliability of source: unable to provide, Family: Reliability of source: see additional comments above , [facility], and [facility] Medication nonadherence identified: Unable to assess Reconciliation completed: Yes Completed by: Lashay Tse RPh All OIL SEAL ASSEMBLER medications addressed by ODIN Patient interested in Bedside Delivery Services or using CC OP Pharmacy at discharge? Unable to assess Preferred outpatient pharmacy: [facility] [address] [place], [place] [address] - [address] [facility] [phone] e- [id number] [place], [place] [address] - [address] [facility] - [phone] [facility] [phone] e- [id number] [place] [address] [address] [facility] [phone] Allergies: No Known Allergies Prior to [...] (Mild Pain (1-3 (more content not included)... [facility] 09-22-2024 Note Exam Date Time Procedure Performing Provider Status 09/22/24 7:09 PM XR Chest 1 View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 Alcohol and Drug Abuse Patient Records regulations: The Federal rules restrict any use of the information to criminally investigate or prosecute any alcohol or drug abuse patient.[facility] HospitalIn the event this information is protected by the Federal Confidentiality of Alcohol and Drug Abuse Patient Records regulations: The Federal rules restrict any use of the information to criminally investigate or prosecute any alcohol or drug abuse patient.[facility] HospitalIn the event this information is protected by the Federal Confidentiality of Alcohol and Drug Abuse Patient Records regulations: The Federal rules restrict any use of the information to criminally investigate or prosecute any alcohol or drug abuse patient.[facility] Care Teams (unrecognized sec tion and content) Driver Guide Relationship Specialty Start Date End Date Adriana Shaw PCP - General Family Practice 08/04/16 Driver Guide Relationship Specialty Start Date End Date Cass More MD [address] [place] [address] PCP - General 06/12/19 Driver Guide Relationship Specialty Start Date End Date Nena Pardo DO [address] [place] [address] PCP - General Internal Medicine 09/28/23 Driver Guide Relationship Specialty Start Date End Date Nena Pardo DO [address] [place] [address] PCP - General Internal Medicine 09/28/23 Driver Guide Relationship Specialty Start Date End Date Nena Pardo DO [address] [place] [address] PCP - General Internal Medicine 09/28/23 Driver Guide Relationship Specialty Start Date End Date Nena Pardo DO [address] [place] [address] PCP - General Internal Medicine 09/28/23 Driver Guide Relationship Specialty Start Date End Date Nena Pardo DO [address] [place] [address] PCP - General Internal Medicine 09/28/23 Driver Guide Relationship Specialty Start Date End Date Nena Pardo DO [address] [place] [id number] PCP - General Internal Medicine 09/28/23 Driver Guide Relationship Specialty Start Date End Date Adriana Shaw PCP - General Family Medicine 08/04/16 Driver Guide Relationship Specialty Start Date End Date Nena Pardo DO [address] [place] [address] PCP - General Internal Medicine 09/28/23 Driver Guide Relationship Specialty Start Date End Date Nena Pardo DO [address] [place] [address] [address] [place] [address] PCP - General Internal Medicine 09/28/23 Driver Guide Relationship Specialty Start Date End Date Adriana Shaw PCP - General Family Medicine 08/04/16 Driver Guide Relationship Specialty Start Date End Date Adriana Shaw Cong PCP - General Family Medicine 08/04/16 Driver Guide Relationship Specialty Start Date End Date Adriana Shaw Cong PCP - General Family Medicine 08/04/16 Driver Guide Relationship Specialty Start Date End Date Nena Pardo DO [address] [place] [address] PCP - General Internal Medicine 09/28/23 Driver Guide Relationship Specialty Start Date End Date Adriana Shaw Cong PCP - General Family Medicine 08/04/16 Driver Guide Relationship Specialty Start Date End Date Adriana Shaw Cong PCP - General Family Medicine 08/04/16 Driver Guide Relationship Specialty Start Date End Date Adriana Shaw Cong PCP - General Family Medicine 08/04/16 Driver Guide Relationship Specialty Start Date End Date Nena Pardo DO [address] [place] [address] PCP - General Internal Medicine 09/28/23 Driver Guide Relationship Specialty Start Date End Date Adriana Shaw Cong PCP - General Family Medicine 08/04/16 Team [...] Rose DO Primary Care Provider Active Start: January 31, 2025 End: January 31, 2025 Denny CONDON Attending Provider Active Sta rt: January 31, 2025 End: January 31, 2025 Team Status: Active Member Role/Relationship Status Dates Dr. Olman Rose DO Primary care physician Active Team Status: Inactive Member Role/Relationship Status Dates Dr. Olman Rose DO Primary care physician Active Start: January 31, 2025 End: January 31, 2025 Denny CONDON Attending physician Active St art: January 31, 2025 End: January 31, 2025 Team Status: Inactive Member Role/Relationship Status Dates Dr. Olman Rose DO Primary care physician Active Start: March 18, 2025 End: March 18, 2025 Denny CONDON Attending physician Active St art: March 18, 2025 End: March 18, 2025 Team Status: Active Member Role/Relationship Status Dates Dr. Olman Rose DO Primary care physician Active Start: March 26, 2025 Denny CONDON Attending physician Active St art: March 26, 2025 FOR RECORDS PERTAINING TO PATIENTS WHO [...] BE BASED ON THE PRIMARY CLINICAL RECORDS. [facility]. provides no warranty or guarantee of the accuracy or completeness of information in this document.
[2025-06-25 07:57] LABS: Hematocrit 40.3 % (40-54); Hemoglobin 14.1 g/dL (13.0-16.5); Mean Corp Hgb Conc 35.0 g/dL (32-36); Mean Corpuscular Volume 82.4 fL (80-94); Mean Platelet Vol. 10.1 fl (6.2-12.0); Platelet Count 242 K/mm3 (150-450); RBC Distribution Width CV 13.0 % (11.6-14.6); RBC Distribution Width SD 38.9 fl (35.1-43.9); Red Blood Count 4.89 M/mm3 (4.6-6.2); White Blood Count 7.7 K/mm3 (4.4-11.0)
[2025-06-25 08:15] LABS: AST(SGOT) 19 U/L (<=37); Alanine Aminotransfer ALT/SGPT 16 U/L (<=46); Albumin, Serum 3.9 g/dL (3.5-5.0); Alkaline Phosphatase 107 U/L (40-129); Anion Gap 11 (5-15); BUN 10 mg/dL (4-19); BUN/Creat Ratio 11.6 RATIO (10-20); Bilirubin, Direct 0.18 mg/dL (0.00-0.30); Calcium,Total 8.9 mg/dL (7.6-11.0); Carbon Dioxide 23.2 mmol/L (21.0-32.0); Chloride 107 mmol/L (98-108); Globulin 2.9 g/dL (2.2-4.2); Glucose 122 mg/dL (70-99); Potassium 3.7 mmol/L (3.3-5.1)
== END ==
LOC: OLS.SANC 05:00
PROVIDERS: PCP Family Medicine; Visit Provider Internal Medicine
DX: I10 Essential (primary) hypertension (principal); E78.5 Hyperlipidemia, unspecified; E11.9 Type 2 diabetes mellitus without complications
CPT/HCPCS: 36415; 80048; 80076; 85027